=== PATIENT | female | born 1970 | race Caucasian/White ===

== ENCOUNTER → 2018-06-30 10:30 | Outpatient (CLI) | payer MEDICARE, MEDICAID, SELFPAY | PROVIDERS: PCP Nurse Practitioner Family; Visit Provider Student in an Organized Health Care Education/Training Program | DX: M75.81 Other shoulder lesions, right shoulder (principal); M75.82 Other shoulder lesions, left shoulder | CPT/HCPCS: 99213 ==

== ENCOUNTER 2018-08-03 03:51 | Outpatient (CLI) | payer SELFPAY | END 2018-08-03 04:11 | PROVIDERS: PCP Nurse Practitioner Family; Visit Provider Surgery | DX: J45.909 Unspecified asthma, uncomplicated (principal) ==

== ENCOUNTER 2018-08-10 13:20 | Outpatient (CLI) | payer MEDICARE, MEDICAID, SELFPAY ==
--- NOTE | 2018-08-10 10:00 | SATEXT_ITS ---
Assessment: Dinesh presents for nutritional counseling weight management nutrition therapy and impaired fasting glucose. Her dietary recall shows that she eats quite healthfully and does not eat processed foods. She drinks water and coffee. She does take some medications that can contribute to weight gain. She describes a history of poor sleep and high emotional stress. Her physical activities at this point are limited to her ADL's. She does go up and down many stairs per her report. During hunting season, she reports that she is physically active all day long. She is 68 and 265 lbs. Her BMI is 40.4 kg/ m2. 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 Encouraged her to be as physically active as possible. Provided her with information on the Prevent Type 2 program. Dinesh expressed interest in getting connected with the program. Also reviewed the DASH eating plan as the gold standard for healthful eating and also as a guide for the right proportions of food. Monitoring and Evaluation: 1. Dinesh will self monitor her progress and evaluate her nutrition care plan needs. 2. Dinesh will follow up with me with any questions or concerns regarding her nutrition therapy. Dinesh contact Pretty Palacio about Prevent Type 2. Thank you for the referral. Appointment start time: 1410 Appointment End time: 1430
== END 2018-08-10 13:40 ==
PROVIDERS: PCP Nurse Practitioner Family; Visit Provider Dietitian, Registered
DX: E66.8 Other obesity (principal); Z68.41 Body mass index [BMI] 40.0-44.9, adult; Z71.3 Dietary counseling and surveillance
CPT/HCPCS: 97802

== ENCOUNTER → 2018-08-11 10:24 | Outpatient (BNVA) | payer MEDICARE, MEDICAID, SELFPAY | PROVIDERS: PCP Nurse Practitioner Family; Visit Provider Student in an Organized Health Care Education/Training Program | DX: M77.12 Lateral epicondylitis, left elbow (principal); M75.102 Unspecified rotator cuff tear or rupture of left shoulder, not specified as traumatic | CPT/HCPCS: 20605; 99214; J1030 ==

== ENCOUNTER 2018-08-15 03:04 | Outpatient (CLI) | payer MEDICARE, MEDICAID, SELFPAY ==
[2018-08-15] MEDS: Inhaler, Assist Device 1 EACH MC (11:20)
[2018-08-15] MEDS: Albuterol HFA 18 GM 200 PUFF INH IH (11:20)
--- NOTE | 2018-08-18 11:25 | PFT_ITS ---
PULMONARY FUNCTION TEST REPORT DATE OF SERVICE: August 15, 2018 REQUESTING PROVIDER: Lucy Courtney APRN Spirometry shows no evidence of obstructive airways disease; no bronchodilator response. Lung volumes show no evidence of restriction. Diffusion capacity is normal. Airways resistance normal. IMPRESSION: Normal pulmonary function study. Clinical correlation recommended. MATHEUS/jacquelyn SEE SCANNED DOCUMENT IN THE EMR FOR DATA AND GRAPHS
== END 2018-08-15 03:24 ==
PROVIDERS: PCP Nurse Practitioner Family; Visit Provider Nurse Practitioner Family
DX: R06.02 Shortness of breath (principal); J45.909 Unspecified asthma, uncomplicated
CPT/HCPCS: 94060; 94150; 94726; 94729

== ENCOUNTER 2018-08-21 17:59 | Emergency (ER) | payer MEDICARE, MEDICAID, SELFPAY ==
[2018-08-21 18:25] VITALS: BP 148/80; PULSE 65; RESP 18; TEMP 36; O2SAT 97
--- NOTE | 2018-08-21 18:56 | W.ED.GENAD ---
Discharge Plan Disposition Patient Disposition: HOME Condition: Fair Discharge Details Chief Complaint: Headache Clinical Impression: Migraine Primary Care Provider: Lucy Courtney ED Provider: Breann Hudson Home Meds and New Rx's Prescriptions: Continue dihydroergotamine [Migranal] 1 ML spray,non-aerosol 1 ml NS PRN RF: 0 cyproheptadine 4 MG tablet 4 mg PO HS RF: 0 cetirizine [Zyrtec] 10 MG tablet 10 mg PO DAILY RF: 0 ondansetron HCl [Zofran] 4 MG tablet 4 mg PO PRN RF: 0 meclizine 12.5 MG tablet 12.5 mg PO PRN RF: 0 polyethylene glycol 3350(bulk) 1 GM granules 17 gm PO DAILY Qty: 527 RF: 3 omeprazole 40 MG capsule,delayed release(DR/EC) 40 mg PO BID Qty: 60 RF: 3 clonazepam 2 mg BID RF: 0 venlafaxine 75 MG tablet 225 mg PO DAILY RF: 0 topiramate 100 MG tablet 200 mg PO HS RF: 0 ipratropium bromide [Atrovent HFA] 1 PUFF HFA aerosol inhaler 1 puff Inhalation Q8H RF: 0 albuterol sulfate [Proventil HFA] 200 PUFF HFA aerosol inhaler 2 puff Inhalation PRN PRNRF: 0 fluticasone-salmeterol [Advair HFA] 60 PUFF HFA aerosol inhaler 2 puff Inhalation DAILY PRNRF: 0 naloxone [Narcan] 4 MG spray,non-aerosol 4 mg NS PRN Qty: 2 RF: 0 Discharge Instructions Instructions: Acute Headache (ED) Additional Instructions: Encourage hydration. Continue with medications as previously prescribed to help with migraine symptoms. If you develop fevers/chills, increased pain or other new/worsening symptoms please seek care urgently once again. Please follow up with neurologist regarding your breakthrough headaches. Referrals: Lucy Courtney [Primary Care Provider] - Discharge Data Discharge Date/Time-TO BE ENTERED AT DEPARTURE: 08/21/18 21:44 Medical Decision Making Patient presents with chief complaint of migraine. Neuro exam is intact. She reports this is typical for migraine. She has had migraines for several years and they are typically well controlled. Reports that her antimigraine medication typically works well for her but she did not take it last night and believes this may be the source of her migraine. No thunderclap onset. No fevers or chills. No nuchal rigidity on exam. Patient is afebrile nontoxic appearing. Blood pressure noted to be slightly elevated at 148/80, otherwise labs are within normal limits. Patient is responded quite well to Toradol historically. She will be given IV Toradol, Compazine and Benadryl. Will hydrate the patient she does appear dehydrated on exam. Discussed this plan of the patient is in agreement Patient received Toradol, IV hydration, Compezine, Benadryl. 1/2 hour after adminstration she reports no improvement. As patient has taken 3 doses of DHE today this limits our options for further treatment. Discussed with Dr. Coy, will augment with Decadron and Magnesium. After receiving the above. IV medication, patient is tolerating oral hydration. She reports that the pain has completely subsided. Is requesting discharge at this time. Advised that she discuss her TAM with her neurologist further, in particular, I advised that she discuss that her DHE for breakthrough migraines was unsuccessful. This may have been linked to the fact that she did not take her typical medications last night. We discussed new/worsening symptoms and when to seek care urgently once again. Encouraaged hydration. All of her questions and concerns were addressed, she is in agreement with this plan. HPI General Mode of arrival: ambulatory. Date/Time Provider Initiated Documentation: 08/21/18 18:46. Limitations to Documentation: no limitations. Information obtained by: patient. HPI Narrative: This is a 40-year-old female presents here with chief complaint of migraine. Patient still seen by myself historically from migraines, requesting one year since she has been seen here for intractable migraine. Reports that her migraines have been healed quite well by [facility] neurology. However, she reports she did not take her nightly antimigraine medication last night she was drinking alcohol and does not wish to mix her alcohol with her medication. Reports that she tried her on nasal dihydroergotamine which typically works quite well for her. However, this was insufficient in alleviating her discomfort. Reports that the pain is primarily on the right side. She is endorsing photophobia and phonophobia. States she has been nauseated throughout the course of the day and has had multiple episodes of emesis, most recently in the car on the way here. Patient did try Zofran ?2 today without success in alleviating her nausea. She denies any fevers or chills. Denies any neck pain. States that headache began when she awoke this morning which is typical for her migraines Related Data Home Medications Medication Instructions Recorded Confirmed venlafaxine 225 mg PO DAILY 05/16/16 08/21/18 topiramate 200 mg PO HS 06/18/16 08/21/18 dihydroergotamine [Migranal] 1 ml NS PRN script 07/07/16 08/21/18 ipratropium bromide [Atrovent HFA] 1 puff INHALATION Q8H 12/05/16 08/21/18 albuterol sulfate [Proventil HFA] 2 puff INHALATION PRN PRN 02/15/17 08/21/18 cyproheptadine 4 mg PO HS 03/30/17 08/21/18 fluticasone-salmeterol [Advair HFA] 2 puff INHALATION DAILY PRN 09/26/17 08/21/18 naloxone [Narcan] 4 mg NS PRN #2 spray 09/27/17 08/21/18 cetirizine [Zyrtec] 10 mg PO DAILY tab-cap 01/31/18 08/21/18 meclizine 12.5 mg PO PRN 01/31/18 08/21/18 ondansetron HCl [Zofran] 4 mg PO PRN 01/31/18 08/21/18 polyethylene glycol 3350(bulk) 17 gm PO DAILY #527 gm 01/31/18 08/21/18 omeprazole 40 mg PO BID #60 tab-cap 03/31/18 08/21/18 Clonazepam 2 mg BID 06/30/18 08/21/18 Previous Rx's Medication Instructions Recorded naloxone [Narcan] 4 mg NS PRN #2 spray 09/27/17 omeprazole 40 mg PO BID #60 tab-cap 03/31/18 Allergies Allergy/AdvReac Type Severity Reaction Status Date / Time codeine Allergy Intermediate Itching Unverified 08/21/18 18:29 oxycodone HCl [From Percocet] Allergy Intermediate Anaphylaxsi Unverified 08/21/18 18:29 s General Stated Complaint: Headache CRISTI: 3 Review of Systems Constitutional Reports as per HPI, Denies chills, Reports fatigue, Denies fever(s), Reports headache(s) and Denies weakness Eyes Reports as per HPI, Denies change in vision, Denies diplopia, Denies floaters, Denies loss of vision and Reports photophobia ENT Reports headache(s) Cardiovascular Denies chest pain Respiratory Denies chest congestion and Denies cough Gastrointestinal Reports as per HPI Integumentary/Breasts Denies rash Neurologic Reports as per HPI, Reports headache(s), Denies loss of vision, Denies sensory deficit, Denies paresthesias and Denies weakness Endocrine Reports fatigue PFSH Family History Father Rheumatoid arthritis Brother Rheumatoid arthritis Medical History Anxiety Asthma Black stools Chest pain Chronic pain Cigarette smoker Cough Depression Dizziness Dysphagia Family history of colon cancer GERD (gastroesophageal reflux disease) Hyperthyroidism Intertrigo Migraine Obese Obstructive sleep apnea Onychomycosis PTSD (post-traumatic stress disorder) Pedal edema Postmenopausal bleeding Right hand pain Shoulder pain, right Skin nodule Syncope Thyroid nodule Vertigo Social History Smoking/Tobacco Use Status: Current every day Surgical History Colonoscopy - MAC (02/14/18) EGD - MAC (02/14/18) Replacement of total knee joint Rotator Cuff Repair Exam Const General: cooperative, healthy appearing, comfortable, no acute distress, well developed and well groomed Nutritional Appearance: average body habitus and well nourished Orientation: alert, awake and oriented x3 HENMT Ears: hearing grossly normal bilaterally, external ears normal and TM's normal bilaterally Mouth: abnormal oral mucosae (mucosa appears dry) Eyes General: appearance normal, both eyes and all related structures Alignment and Position: alignment normal and position normal Eyelids: eyelids normal Conjunctivae: conjunctivae normal Pupils: PERRL EOM: EOM intact bilaterally and No nystagmus Neck Neck: normal visual inspection, full ROM, no lymphadenopathy and no meningeal signs Resp Effort & Inspection: normal respiratory effort, able to speak in complete sentences and no respiratory distress Auscultation: clear to auscultation bilaterally Cardio Rate: regular rate Rhythm: regular rhythm Heart Sounds: S1 normal and S2 normal Skin General skin exam: no rashes or lesions noted Trauma: no lacerations or abrasions Neuro General: alert, awake, oriented x3, gait normal, tone normal, moves all extremities and no focal motor deficits Cranial Nerves: CN's II-XI intact bilaterally, PERRL, accommodation normal, EOM intact bilaterally, no nystagmus and no nystagmus Cognition: normal cognition Gait: normal gait Motor: muscle tone normal throughout and strength 5/5 throughout Sensory Exam: no sensory deficits noted DTR's: Rt Biceps: 2+, Lt Biceps: 2+, Rt Brachioradialis: 2+, Lt Brachioradialis: 2+, Rt Patellar: 2+, Lt Patellar: 2+, Rt Ankle: 2+ and Lt Ankle: 2+ Coordination: [id number]-gd-[id number] test normal, wcfg-sh-zink test normal and rapid alternating movement UE normal Extrem General: normal to inspection, no pedal edema and no calf tenderness Psych Appearance: grossly normal and well kempt Mental Status: mental status grossly normal Speech and Movement: speech and movement normal Course Vital Signs Temperature 36 C L 08/21/18 18:25 Pulse 65 08/21/18 18:25 Respiratory Rate 18 08/21/18 18:25 Blood Pressure 148/80 H 08/21/18 18:25 Pulse Oximetry 97 08/21/18 18:25 Temperature 36 C L 08/21/18 18:25 Temperature Source Skin 08/21/18 18:25 Pulse 65 08/21/18 18:25 Respiratory Rate 18 08/21/18 18:25 Respiratory Effort Non-Labored 08/21/18 18:27 Blood Pressure 148/80 H 08/21/18 18:25 Pulse Oximetry 97 08/21/18 18:25 Pain Level 10 08/21/18 18:31
--- NOTE | 2018-08-21 19:02 | ED.GENADUL_ITS ---
Discharge Plan Disposition Patient Disposition: HOME Condition: Fair Discharge Details Chief Complaint: Headache Clinical Impression: Migraine Primary Care Provider: Lucy Courtney ED Provider: Breann Hudson Home Meds and New Rx's Prescriptions: Continue dihydroergotamine [Migranal] 1 ML spray,non-aerosol 1 ml NS PRN RF: 0 cyproheptadine 4 MG tablet 4 mg PO HS RF: 0 cetirizine [Zyrtec] 10 MG tablet 10 mg PO DAILY RF: 0 ondansetron HCl [Zofran] 4 MG tablet 4 mg PO PRN RF: 0 meclizine 12.5 MG tablet 12.5 mg PO PRN RF: 0 polyethylene glycol 3350(bulk) 1 GM granules 17 gm PO DAILY Qty: 527 RF: 3 omeprazole 40 MG capsule,delayed release(DR/EC) 40 mg PO BID Qty: 60 RF: 3 clonazepam 2 mg BID RF: 0 venlafaxine 75 MG tablet 225 mg PO DAILY RF: 0 topiramate 100 MG tablet 200 mg PO HS RF: 0 ipratropium bromide [Atrovent HFA] 1 PUFF HFA aerosol inhaler 1 puff Inhalation Q8H RF: 0 albuterol sulfate [Proventil HFA] 200 PUFF HFA aerosol inhaler 2 puff Inhalation PRN PRNRF: 0 fluticasone-salmeterol [Advair HFA] 60 PUFF HFA aerosol inhaler 2 puff Inhalation DAILY PRNRF: 0 naloxone [Narcan] 4 MG spray,non-aerosol 4 mg NS PRN Qty: 2 RF: 0 Discharge Instructions Instructions: Acute Headache (ED) Additional Instructions: Encourage hydration. Continue with medications as previously prescribed to help with migraine symptoms. If you develop fevers/chills, increased pain or other new/worsening symptoms please seek care urgently once again. Please follow up with neurologist regarding your breakthrough headaches. Referrals: Lucy Courtney [Primary Care Provider] - Discharge Data Discharge Date/Time-TO BE ENTERED AT DEPARTURE: 08/21/18 21:44 Medical Decision Making Patient presents with chief complaint of migraine. Neuro exam is intact. She reports this is typical for migraine. She has had migraines for several years and they are typically well controlled. Reports that her antimigraine medication typically works well for her but she did not take it last night and believes this may be the source of her migraine. No thunderclap onset. No fevers or chills. No nuchal rigidity on exam. Patient is afebrile nontoxic appearing. Blood pressure noted to be slightly elevated at 148/80, otherwise labs are within normal limits. Patient is responded quite well to Toradol historically. She will be given IV Toradol, Compazine and Benadryl. Will hydrate the patient she does appear dehydrated on exam. Discussed this plan of the patient is in agreement Patient received Toradol, IV hydration, Compezine, Benadryl. 1/2 hour after adminstration she reports no improvement. As patient has taken 3 doses of DHE today this limits our options for further treatment. Discussed with Dr. Coy, will augment with Decadron and Magnesium. After receiving the above. IV medication, patient is tolerating oral hydration. She reports that the pain has completely subsided. Is requesting discharge at this time. Advised that she discuss her TAM with her neurologist further, in particular, I advised that she discuss that her DHE for breakthrough migraines was unsuccessful. This may have been linked to the fact that she did not take her typical medications last night. We discussed new/worsening symptoms and when to seek care urgently once again. Encouraaged hydration. All of her questions and concerns were addressed, she is in agreement with this plan. HPI General Mode of arrival: ambulatory . Date/Time Provider Initiated Documentation: 08/21/18 18:46 . Limitations to Documentation: no limitations . Information obtained by: patient . HPI Narrative: This is a 40-year-old female presents here with chief complaint of migraine. Patient still seen by myself historically from migraines, requesting one year since she has been seen here for intractable migraine. Reports that her migraines have been healed quite well by [facility] neurology. However, she reports she did not take her nightly antimigraine medication last night she was drinking alcohol and does not wish to mix her alcohol with her medication. Reports that she tried her on nasal dihydroergotamine which typically works quite well for her. However, this was insufficient in alleviating her discomfort. Reports that the pain is primarily on the right side. She is endorsing photophobia and phonophobia. States she has been nauseated throughout the course of the day and has had multiple episodes of emesis, most recently in the car on the way here. Patient did try Zofran ?2 today without success in alleviating her nausea. She denies any fevers or chills. Denies any neck pain. States that headache began when she awoke this morning which is typical for her migraines Related Data Home Medications Medication Instructions Recorded Confirmed venlafaxine 225 mg PO DAILY 05/16/16 08/21/18 topiramate 200 mg PO HS 06/18/16 08/21/18 dihydroergotamine [Migranal] 1 ml NS PRN script 07/07/16 08/21/18 ipratropium bromide [Atrovent HFA] 1 puff INHALATION Q8H 12/05/16 08/21/18 albuterol sulfate [Proventil HFA] 2 puff INHALATION PRN PRN 02/15/17 08/21/18 cyproheptadine 4 mg PO HS 03/30/17 08/21/18 fluticasone-salmeterol [Advair HFA] 2 puff INHALATION DAILY PRN 09/26/17 naloxone [Narcan] 4 mg NS PRN #2 spray 09/27/17 08/21/18 cetirizine [Zyrtec] 10 mg PO DAILY tab-cap 01/31/18 08/21/18 meclizine 12.5 mg PO PRN 01/31/18 08/21/18 ondansetron HCl [Zofran] 4 mg PO PRN 01/31/18 08/21/18 polyethylene glycol 3350(bulk) 17 gm PO DAILY #527 gm 01/31/18 08/21/18 omeprazole 40 mg PO BID #60 tab-cap 03/31/18 08/21/18 Clonazepam 2 mg BID 06/30/18 08/21/18 Previous Rx's Medication Instructions Recorded naloxone [Narcan] 4 mg NS PRN #2 spray 09/27/17 omeprazole 40 mg PO BID #60 tab-cap 03/31/18 Allergies Allergy/AdvReac Type Severity Reaction Status Date / Time codeine Allergy Intermediate Itching Unverified 08/21/18 18:29 oxycodone HCl [From Percocet] Allergy Intermediate Anaphylaxsi Unverified 18:29 s General Stated Complaint: Headache CRISTI: 3 Review of Systems Constitutional Reports as per HPI, Denies chills, Reports fatigue, Denies fever(s), Reports headache(s) and Denies weakness Eyes Reports as per HPI, Denies change in vision, Denies diplopia, Denies floaters, Denies loss of vision and Reports photophobia ENT Reports headache(s) Cardiovascular Denies chest pain Respiratory Denies chest congestion and Denies cough Gastrointestinal Reports as per HPI Integumentary/Breasts Denies rash Neurologic Reports as per HPI, Reports headache(s), Denies loss of vision, Denies sensory deficit, Denies paresthesias and Denies weakness Endocrine Reports fatigue PFSH Family History Father Rheumatoid arthritis Brother Rheumatoid arthritis Medical History Anxiety Asthma Black stools Chest pain Chronic pain Cigarette smoker Cough Depression Dizziness Dysphagia Family history of colon cancer GERD (gastroesophageal reflux disease) Hyperthyroidism Intertrigo Migraine Obese Obstructive sleep apnea Onychomycosis PTSD (post-traumatic stress disorder) Pedal edema Postmenopausal bleeding Right hand pain Shoulder pain, right Skin nodule Syncope Thyroid nodule Vertigo Social History Smoking/Tobacco Use Status: Current every day Surgical History Colonoscopy - MAC (02/14/18) EGD - MAC (02/14/18) Replacement of total knee joint Rotator Cuff Repair Exam Const General: cooperative, healthy appearing, comfortable, no acute distress, well developed and well groomed Nutritional Appearance: average body habitus and well nourished Orientation: alert, awake and oriented x3 HENMT Ears: hearing grossly normal bilaterally, external ears normal and TM's normal bilaterally Mouth: abnormal oral mucosae (mucosa appears dry) Eyes General: appearance normal, both eyes and all related structures Alignment and Position: alignment normal and position normal Eyelids: eyelids normal Conjunctivae: conjunctivae normal Pupils: PERRL EOM: EOM intact bilaterally and No nystagmus Neck Neck: normal visual inspection, full ROM, no lymphadenopathy and no meningeal signs Resp Effort & Inspection: normal respiratory effort, able to speak in complete sentences and no respiratory distress Auscultation: clear to auscultation bilaterally Cardio Rate: regular rate Rhythm: regular rhythm Heart Sounds: S1 normal and S2 normal Skin General skin exam: no rashes or lesions noted Trauma: no lacerations or abrasions Neuro General: alert, awake, oriented x3, gait normal, tone normal, moves all extremities and no focal motor deficits Cranial Nerves: CN's II-XI intact bilaterally, PERRL, accommodation normal, EOM intact bilaterally, no nystagmus and no nystagmus Cognition: normal cognition Gait: normal gait Motor: muscle tone normal throughout and strength 5/5 throughout Sensory Exam: no sensory deficits noted DTR's: Rt Biceps: 2+, Lt Biceps: 2+, Rt Brachioradialis: 2+, Lt Brachioradialis : 2+, Rt Patellar: 2+, Lt Patellar: 2+, Rt Ankle: 2+ and Lt Ankle: 2+ Coordination: ulrdfd-os-kasi test normal, asvy-ad-zuaw test normal and rapid alternating movement UE normal Extrem General: normal to inspection, no pedal edema and no calf tenderness Psych Appearance: grossly normal and well kempt Mental Status: mental status grossly normal Speech and Movement: speech and movement normal Course Vital Signs Temperature 36 C L 08/21/18 18:25 Pulse 65 08/21/18 18:25 Respiratory Rate 18 08/21/18 18:25 Blood Pressure 148/80 H 08/21/18 18:25 Pulse Oximetry 97 08/21/18 18:25 Temperature 36 C L 08/21/18 18:25 Temperature Source Skin 08/21/18 18:25 Pulse 65 08/21/18 18:25 Respiratory Rate 18 08/21/18 18:25 Respiratory Effort Non-Labored 08/21/18 18:27 Blood Pressure 148/80 H 08/21/18 18:25 Pulse Oximetry 97 08/21/18 18:25 Pain Level 10 08/21/18 18:31
[2018-08-21] MEDS: diphenhydrAMINE 50 MG/ML VIAL 25 MG IVP (19:16)
[2018-08-21] MEDS: Ketorolac 30 MG/ML VIAL IVP (19:18)
[2018-08-21] MEDS: Normal Saline 1,000 ML 1000 ML IV (19:19)
[2018-08-21] MEDS: Prochlorperazine 10 MG/2 ML VIAL IVP (19:19)
[2018-08-21 21:42] VITALS: BP 138/80; PULSE 86; RESP 18; TEMP 36.9; O2SAT 98
== END 2018-08-21 21:44 | disposition home or self-care (01) ==
PROVIDERS: Emergency Provider Physician Assistant; PCP Nurse Practitioner Family
DX: G43.909 Migraine, unspecified, not intractable, without status migrainosus (principal)
CPT/HCPCS: 96374; 96375; 99284; 99283; J0780; J1200; J1885

== ENCOUNTER 2018-08-25 00:22 | Outpatient (CLI) | payer MEDICARE, MEDICAID, SELFPAY ==
--- NOTE | 2018-08-25 10:40 | DI.MRI_ITS ---
SYMPTOM/DIAGNOSIS: PAIN, ? LT RTC TEAR M75.102 MRI LEFT SHOULDER: Routine noncontrast. No priors for comparison. There is T2 hyperintense signal in the supraspinatus tendon consistent with intersubstance tear. There is thickening and intermediate signal of the tendon consistent with tendinosis. The infraspinatus, teres minor and subscapularis tendons are intact. The muscles show normal signal and size. No significant muscular fatty atrophy is present. The biceps tendon has a normal appearance and location. The glenoid labrum is grossly unremarkable on this noncontrast examination. The glenohumeral articular cartilage is well maintained. Marrow signal is within normal limits. No evidence of an occult fracture or avascular necrosis seen. There are post surgical changes of resection of the distal clavicle. No focal fluid collection or soft tissue masses appreciated. There is artifact seen in the soft tissues from prior surgery. IMPRESSION: Intersubstance partial tear of the supraspinatus tendon. No significant muscular fatty atrophy is appreciated.
== END 2018-08-25 00:42 ==
PROVIDERS: PCP Nurse Practitioner Family; Visit Provider Student in an Organized Health Care Education/Training Program
DX: M75.102 Unspecified rotator cuff tear or rupture of left shoulder, not specified as traumatic (principal); M25.512 Pain in left shoulder; M75.82 Other shoulder lesions, left shoulder
CPT/HCPCS: 73221

== ENCOUNTER → 2018-09-25 10:26 | Outpatient (BNVA) | payer MEDICARE, MEDICAID, SELFPAY | PROVIDERS: PCP Nurse Practitioner Family; Referring Provider Nurse Practitioner Family; Visit Provider Student in an Organized Health Care Education/Training Program | DX: M75.102 Unspecified rotator cuff tear or rupture of left shoulder, not specified as traumatic (principal); M77.12 Lateral epicondylitis, left elbow | CPT/HCPCS: 99213 ==

== ENCOUNTER 2018-10-04 12:56 | Outpatient (REF) | payer MEDICARE, MEDICAID, SELFPAY ==
[2018-10-04 21:28] LABS: Abs Immature Grans 0.02 k/cumm (0.0-0.09); Absolute Lymphocyte Count 3.15 k/cumm (1.2-3.4); Absolute Monocyte Count 0.68 k/cumm (0.11-0.7); Absolute Neutrophil Count 4.21 k/cumm (1.2-6.7); HCT 43.3 % (36.0-46.0); Immature Grans % 0.2; Lymphocytes % 39.1; Mean Corp. HGB Concentration 32.3 g/dL (32.0-36.0); Mean Corpuscular Hemoglobin 29.1 pg (27.0-33.0); Mean Platelet Volume 10.4 fL (8.0-11.0); Monocytes % 8.4; Neutrophils % 52.3; Platelet Count 301 x1000/uL (130-400); RBC 4.81 m/cumm (4.00-5.20); RBC Distribution Width 15.2 % (11.7-14.6); White Blood Cell Count 8.06 k/cumm (4.4-10.8)
[2018-10-04 21:35] LABS: ALT 36 U/L (12-78); AST 24 U/L (15-37); Albumin 3.6 g/dL (3.4-5.0); Alkaline Phosphatase 81 U/L (46-116); Anion Gap 9.6 mmol/L (3-11); BUN 13 mg/dL (7-18); Bilirubin, Total 0.5 mg/dL (0.2-1.0); CO2 25.4 mmol/L (21.0-32.0); CREATININE 0.92 mg/dL (0.55-1.02); Calcium 9.2 mg/dL (8.5-10.1); Chloride 104 mmol/L (98-107); Glucose 95 mg/dL (70-100); Potassium 3.9 mmol/L (3.5-5.1); Sodium 139 mmol/L (136-145); Total Protein 7.1 g/dL (6.4-8.2)
[2018-10-04 22:39] LABS: ESR 22 MM/HR (0-20)
[2018-10-07 00:02] LABS: Anaplasma phagocytophilum Negative (Negative); B. miyamotoi PCR Negative (Negative); Babesia divergens/MO-1 Negative (Negative); Babesia duncani Negative (Negative); Babesia microti Negative (Negative); Ehrlichia chaffeensis Negative (Negative); Ehrlichia ewingii/canis Negative (Negative); Ehrlichia muris eauclairensis Negative (Negative)
== END 2018-10-04 13:16 ==
LOC: NCHCN 12:56
PROVIDERS: PCP Nurse Practitioner Family; Visit Provider Family Medicine
DX: M25.50 Pain in unspecified joint (principal); R53.83 Other fatigue
CPT/HCPCS: 80053; 85652; 85025; 87798

== ENCOUNTER 2018-11-29 12:55 | Outpatient (CLI) | payer MEDICARE, MEDICAID, SELFPAY | END 2018-11-29 13:15 | PROVIDERS: PCP Nurse Practitioner Family; Visit Provider Student in an Organized Health Care Education/Training Program | DX: M25.512 Pain in left shoulder (principal); M75.102 Unspecified rotator cuff tear or rupture of left shoulder, not specified as traumatic; M77.12 Lateral epicondylitis, left elbow ==

== ENCOUNTER 2018-11-30 09:41 | Day surgery (SDC) | payer MEDICARE, MEDICAID, SELFPAY ==
[2018-11-30] VITALS (9 sets, daily range): BP systolic 88–111; BP diastolic 48–75; PULSE 72–84; RESP 12–19; TEMP 36.5–36.7; O2SAT 93–96
[2018-11-30] MEDS: Lactated Ringers 1,000 ML 80 ML IV ×2 (10:35→14:40)
--- NOTE | 2018-11-30 12:15 | PDOC.DSDIS_ITS ---
Discharge Plan Disposition Patient Disposition: HOME Condition: Stable Discharge Details Reason For Visit: (L) RTC TEAR,(L) LATERAL EPICONDYLITIS Attending Provider: Junior Brunson Primary Care Provider: Lucy Courtney Home Meds and New Rx's Prescriptions: New ibuprofen 600 mg tablet 600 mg PO TID PRNQty: 90 RF: 3 acetaminophen 500 mg capsule 1,000 mg PO Q8H PRN (Reason: pain) Qty: 90 RF: 0 hydromorphone 2 mg tablet 2 mg PO Q4H PRN (Reason: pain) Qty: 20 RF: 0 Continued dihydroergotamine [Migranal] 1 ML spray,non-aerosol 1 ml NS PRN RF: 0 cyproheptadine 4 MG tablet 4 mg PO HS RF: 0 cetirizine [Zyrtec] 10 MG tablet 10 mg PO DAILY RF: 0 ondansetron HCl [Zofran] 4 MG tablet 4 mg PO PRN RF: 0 meclizine 12.5 MG tablet 12.5 mg PO BID RF: 0 polyethylene glycol 3350(bulk) 1 GM granules 17 gm PO DAILY PRNQty: 527 RF: 3 omeprazole 40 MG capsule,delayed release(DR/EC) 40 mg PO BID Qty: 60 RF: 3 venlafaxine 75 MG tablet 225 mg PO DAILY RF: 0 topiramate 100 MG tablet 100 mg PO BID RF: 0 Atrovent HFA 1 PUFF HFA aerosol inhaler 1 puff Inhalation Q8H PRNRF: 0 Proventil HFA 200 PUFF HFA aerosol inhaler 2 puff Inhalation PRN PRNRF: 0 Advair HFA 60 PUFF HFA aerosol inhaler 2 puff Inhalation DAILY PRNRF: 0 Narcan 4 MG spray,non-aerosol 4 mg NS PRN Qty: 2 RF: 0 nicotine 14 mg/24 hr Patch 24 Hour 1 patch TRANSDERMAL DAILY RF: 0 clonazepam 1 mg Tablet 1 mg PO TID PRNRF: 0 nicotine 21 mg/24 hr Patch 24 Hour 1 patch TRANSDERMAL DAILY RF: 0 nicotine 7 mg/24 hr Patch 24 Hour 1 patch TRANSDERMAL Q24H RF: 0 gabapentin 100 mg Capsule 100 mg PO DAILY RF: 0 Discharge Instructions Stand Alone Forms: Nannette Forte w/RCR Referrals: Junior Brunson MD [ [facility] STAFF PHYSICIAN] - Equipment/Supplies: Sling Activity:: In Sling Remove Dressings/Wound Care:: 72 hours Shower/Bathe:: 72 hours Diet:: As Tolerated Discharge Orders Discharge Orders: Discharge Order (Routine); Ordered 11/30/18 Ordered By: Junior Brunson DS: Diagnosis Discharge Diagnosis (1) Left rotator cuff tear: Status: Acute (2) Left lateral epicondylitis: Status: Acute
[2018-11-30] MEDS: Albuterol/Ipratropium 3 ML UPD VIAL (15:05)
[2018-11-30] MEDS: HYDROmorphone 2 MG/ML VIAL IVP ×3 (15:25→15:45)
[2018-11-30] MEDS: Normal Saline Flush 10 ML SYR IV (15:27)
[2018-11-30] MEDS: Ketorolac 15 MG/ML VIAL (17:25)
--- NOTE | 2018-12-01 10:36 | ROE_ITS ---
DATE OF SURGERY: November 30, 2018 PREOPERATIVE DIAGNOSIS: Left rotator cuff tear, left lateral epicondylitis. POSTOPERATIVE DIAGNOSIS: Left biceps tear, left subscapularis and supraspinatus tear, left elbow lat eral epicondylitis. SURGERY: Left arthroscopic rotator cuff repair, left lateral elbow debridement. SURGEON: Junior Brunson M.D. CONFERENCE INTERPRETER: Ronny Silverman PA-C FINDINGS: There was a 50% torn biceps tendon with a loose fragment in the joint. A tenotomy was per formed. There was also an upper subscapularis tear in addition to an anterior supraspinatus tear. T hese were both repaired with single anchors. ANESTHESIA: General with an interscalene nerve block. ESTIMATED BLOOD LOSS: 20 cc's COMPLICATIONS: None. DISPOSITION: The patient was awakened from anesthesia and taken to the PACU in a stable condition. INDICATION FOR PROCEDURE: Dinesh is a 48-year-old who I have known previously for right shoulder issu es. She's had persistent left shoulder issues as well as left elbow issues. She was diagnosed with a left rotator cuff tear, as well as persistent left lateral epicondylitis of the elbow. She has dedra led conservative treatment options and desired to have surgical intervention. I reviewed the risks o f the procedure to include bleeding, infection, pain, stiffness, re-tear, need for repeat procedures, weakness, damage to nerves and vessels, damage to muscles and tendons, persistent pain. Despite the se risks, she elected to proceed. PROCEDURE DESCRIPTION: Dinesh was greeted in the preoperative holding area. Her identity was confirm ed and the correct side was identified and marked. The consent was reviewed with the patient and sig wendy. The history and physical was updated. She was taken back to the PACU where an interscalene ner ve block was administered. After successful administration of regional anesthesia she was taken back to the Operating Room. In the supine position a general anesthetic was given. She was then positio wendy in the beach chair position. All bony prominences were well-padded. The head was held in a neut ral position with a foam college or [employer] department head. The left arm was then prepped with ChloraPrep and draped in a standard fashion. Prophylactic antibiotics in the form of Cefazolin were given. A time-out was perf ormed for safe surgery. Starting with the left shoulder, standard arthroscopy portals were marked over the skin. The shoulde r joint was insufflated with normal saline with good flow back. A standard posterior arthroscopy por bryan was made and the shoulder was entered atraumatically and bluntly. Once inside the shoulder I was able to perform a diagnostic arthroscopy. There was notable tearing of the biceps tendon with a loo se flap. The rotator interval was identified and using a spinal needle, a 6.5 mm cannula was placed into the anterior aspect of the shoulder through the rotator interval. A complete diagnostic arthros copy was performed with a probe. This showed tearing of the upper portion of the subscapularis tendo n. Tearing of the biceps tendon. An intact labrum. No significant arthritic changes except for aurea e very focal grade 1 changes over the glenoid. There was some fraying and tearing of the very anteri or-most aspect of the supraspinatus tendon. The posterior labrum was intact. No loose bodies in the pouch. A tenotomy was then performed with a VAPR electrocautery device. Debridement was performed with a sh aver, especially of the rotator interval, to identify the upper border of the subscapularis tendon. Further identification showed that there was a pulled off section of the upper portion of the subscap ularis tendon. The inferior portions were intact. There was some exposed footprint. Using a shaver I then debrided down this exposed footprint of the upper portion of the lesser tuberosity. Once thi s was debrided down fully I place a single Mitek HEALIX anchor. A single horizontal mattress suture was then placed through the upper portion of the subscapularis tendon, which nicely reapproximated th e torn tendon edge to the lesser tuberosity. This was tied using standard knot tying techniques. Th e second suture was pulled out as it was not necessary with the limited real estate. The arm was inv estigated to about 45 degrees of external rotation and it did not have any pull off. Internal rotati on also showed no gapping of the upper portion of the subscapularis tendon. Debridement was then per formed of the stump of the biceps tendon. The torn aspects of the supraspinatus tendon were debrided down as well. This was marked with a PDS suture and did not seem to be complete. It was the anteri or-most margins right up to the coracohumeral ligament. The scope was then removed from the shoulder . The camera was then inserted into the subacromial space and an anterior cannula was placed lateral to the CA ligament. She did have a previous shoulder procedure performed with acromial resection. Tari ridement was performed underneath the acromion and into the bursa of the subacromial space. The rota tor cuff was identified. Two lateral portals were positioned, one anteriorly and one posteriorly in the lateral subacromial space. A 7.5 mm cannula was placed in the anterior portion to be the working portal. This had excellent visualization. The scope was moved to the lateral position. Debridemen t was performed to expose the lateral aspect of the rotator cuff insertion. The PDS suture was seen . This corresponded to a bursal tearing as well. The tear was completed from the bursal side to the articular side showing a very small tear measuring approximately 5 to 6 mm in width. The tissue elizabeth lity on either side appeared to be quite healthy. I debrided the tendon edges, which again appeared to be healthy. It was primarily a crescent-type tear that was created and just needed to be pushed b ack down to bone without any anterior or posterior convergence. A single Mitek HEALIX anchor was the n placed into the space along the articular margin. This was inserted without difficulty. Two horiz ontal mattress sutures were then placed into the tendon. This helped reapproximate the tendon down t o bone. There was no longer visualization into the joint. The tendon was resting on the bone itself . The bone was bleeding. I did not find any need for a lateral row given the purchase of the tendon and the approximation of the tendon. Therefore no lateral row was performed. The sutures were cut. The scope was removed from the shoulder and the portal sites were closed with a #3-0 Monocryl follo wed by Steri-Strips, 4x4's, ABD and Medipore tape. We then turned out attention to the lateral elbow. In the beach chair position I was able to prop th e elbow up in a flexed position. The lateral epicondyle was identified and a 4 cm incision was made starting from the lateral epicondyle and moving distally. The interval between the ECRL and the EDC was identified. This was incised and the muscle fibers of the ECRL were retracted anteriorly. This exposed the tendinous substance of the ECRB deep to the ECRL. This tendon was inspected and it showe d some minor degradation seen at the level just distal to the lateral epicondyle. This was debrided sharply with a knife and also with a rongeur. Care was taken not to dive deeply to penetrate into th e joint or to violate the lateral ulnar collateral ligament. After this was completed, the muscle fa scia of the ECRL was reapproximated back to the EDC with a #2-0 Vicryl. The wound was irrigated. Th e skin was closed with a #2-0 Vicryl followed by a #3-0 Monocryl. The patient was placed into a slin g. She was transitioned back to the supine position in a hospital bed without difficulty. At the en d of the case all counts were correct.
== END 2018-11-30 18:18 | disposition home or self-care (01) ==
PROVIDERS: PCP Nurse Practitioner Family; Visit Provider Student in an Organized Health Care Education/Training Program
PROC: (CPT 29827; principal; 2018-11-30 10:30)
PROC: (CPT 29827; 2018-11-30 10:30)
DX: M75.122 Complete rotator cuff tear or rupture of left shoulder, not specified as traumatic (principal); M77.12 Lateral epicondylitis, left elbow; S46.212A Strain of muscle, fascia and tendon of other parts of biceps, left arm, initial encounter; X58.XXXA Exposure to other specified factors, initial encounter
CPT/HCPCS: 29827; 29823; 64415; 76942; 81025; J0690; J1885; J7620; L3670

== ENCOUNTER → 2018-12-13 09:25 | Outpatient (BNVA) | payer MEDICARE, MEDICAID, SELFPAY | PROVIDERS: PCP Nurse Practitioner Family; Referring Provider Nurse Practitioner Family; Visit Provider Student in an Organized Health Care Education/Training Program | DX: M75.102 Unspecified rotator cuff tear or rupture of left shoulder, not specified as traumatic (principal); M77.12 Lateral epicondylitis, left elbow; Z47.89 Encounter for other orthopedic aftercare ==

== ENCOUNTER → 2019-01-17 09:30 | Outpatient (BNVA) | payer MEDICARE, MEDICAID, SELFPAY | PROVIDERS: PCP Nurse Practitioner Family; Referring Provider Nurse Practitioner Family; Visit Provider Student in an Organized Health Care Education/Training Program | DX: Z47.89 Encounter for other orthopedic aftercare (principal); M75.102 Unspecified rotator cuff tear or rupture of left shoulder, not specified as traumatic; M77.12 Lateral epicondylitis, left elbow ==

== ENCOUNTER 2019-01-31 10:31 | Outpatient (CLI) | payer MEDICARE, MEDICAID, SELFPAY ==
--- NOTE | 2019-01-31 13:05 | DI.US_ITS ---
SYMPTOMS/DIAGNOSIS: LT LEG SWELLING, M79.89 LEFT LOWER EXTREMITY ULTRASOUND: The deep veins of the left lower extremity show normal compression, augmentation and color flow. No evidence of a deep venous thrombus is identified. The saphenofemoral junction appears unremarkable. IMPRESSION: No evidence of a left lower extremity deep venous thrombus.
== END 2019-01-31 10:51 ==
PROVIDERS: PCP Nurse Practitioner Family; Visit Provider Nurse Practitioner Family
DX: R22.42 Localized swelling, mass and lump, left lower limb (principal); M79.89 Other specified soft tissue disorders
CPT/HCPCS: 93971

== ENCOUNTER 2019-02-05 15:24 | Outpatient (CLI) | payer MEDICARE, MEDICAID, SELFPAY ==
--- NOTE | 2019-02-05 15:21 | DI.RAD_ITS ---
SYMPTOM/DIAGNOSIS: LT KNEE PAIN, SWELLING LEFT KNEE: Three views. Comparison is made with 07/28/13. There is mild narrowing and periarticular spurring in the medial femoral tibial joint space. Small spurs are seen at the posterior patella. There is a small suprapatellar joint effusion. No acute fracture or dislocation is identified. There is a well corticated osseous density seen anterior to the patella which appears chronic. IMPRESSION: Mild osteoarthritis of the left knee.
== END 2019-02-05 15:44 ==
PROVIDERS: PCP Nurse Practitioner Family; Referring Provider Nurse Practitioner Family; Visit Provider Student in an Organized Health Care Education/Training Program
DX: M25.562 Pain in left knee (principal); M76.892 Other specified enthesopathies of left lower limb, excluding foot; M17.12 Unilateral primary osteoarthritis, left knee; M25.461 Effusion, right knee
CPT/HCPCS: 20610; 73562; 99212; 99213; J1040

== ENCOUNTER 2019-02-05 16:04 | Outpatient (REF) | payer MEDICARE, MEDICAID, SELFPAY ==
[2019-02-05 17:05] LABS: Clarity CLEAR; Nucleated Cells 524 /MM3 (0-0); Source L KNEE
[2019-02-05 17:06] LABS: Mononuclear Cells 95 % (0-0); Polynuclear Cells 5 % (0-0)
== END 2019-02-05 16:24 ==
LOC: LBN 16:04
PROVIDERS: PCP Nurse Practitioner Family; Visit Provider Student in an Organized Health Care Education/Training Program
DX: M25.462 Effusion, left knee (principal)
CPT/HCPCS: 89051; 89060

== ENCOUNTER → 2019-02-21 08:24 | Outpatient (BNVA) | payer MEDICARE, MEDICAID, SELFPAY | PROVIDERS: PCP Nurse Practitioner Family; Referring Provider Nurse Practitioner Family; Visit Provider Student in an Organized Health Care Education/Training Program | DX: M25.512 Pain in left shoulder (principal); Z47.89 Encounter for other orthopedic aftercare; M75.102 Unspecified rotator cuff tear or rupture of left shoulder, not specified as traumatic | CPT/HCPCS: 20610; J1040 ==

== ENCOUNTER → 2019-03-21 08:54 | Outpatient (BNVA) | payer MEDICARE, MEDICAID, SELFPAY | PROVIDERS: PCP Nurse Practitioner Family; Referring Provider Nurse Practitioner Family; Visit Provider Student in an Organized Health Care Education/Training Program | DX: M25.562 Pain in left knee (principal); M25.512 Pain in left shoulder; Z47.89 Encounter for other orthopedic aftercare; M77.12 Lateral epicondylitis, left elbow | CPT/HCPCS: 99213 ==

== ENCOUNTER → 2019-04-04 13:41 | Outpatient (BNVA) | payer MEDICARE, MEDICAID, SELFPAY | PROVIDERS: PCP Nurse Practitioner Family; Referring Provider Nurse Practitioner Family; Visit Provider Student in an Organized Health Care Education/Training Program | DX: M25.462 Effusion, left knee (principal); M25.562 Pain in left knee | CPT/HCPCS: 29515; 99212; L1812 ==

== ENCOUNTER 2019-04-05 11:55 | Outpatient (REF) | payer MEDICARE, MEDICAID, SELFPAY ==
[2019-04-05 22:57] LABS: Magnesium 1.9 mg/dL (1.8-2.4); TSH (W/Ref FT4) 0.81 uIU/mL (0.358-3.74); Vitamin B12 712 pg/mL (193-986)
== END 2019-04-05 12:15 ==
LOC: NCHCN 11:55
PROVIDERS: PCP Nurse Practitioner Family; Visit Provider Nurse Practitioner Family
DX: R53.83 Other fatigue (principal); R73.01 Impaired fasting glucose; M25.50 Pain in unspecified joint; R42 Dizziness and giddiness; G47.33 Obstructive sleep apnea (adult) (pediatric); J45.40 Moderate persistent asthma, uncomplicated; K30 Functional dyspepsia; E04.1 Nontoxic single thyroid nodule
CPT/HCPCS: 82607; 83735; 84443

== ENCOUNTER 2019-04-09 00:19 | Outpatient (CLI) | payer MEDICARE, MEDICAID, SELFPAY ==
--- NOTE | 2019-04-09 15:00 | DI.US_ITS ---
SYMPTOM/DIAGNOSIS: HYPERTHYROIDISM, THYROID NODULE, E05.90,E04.1 THYROID ULTRASOUND: The right lobe measures 4.7 by 1.3 by 1.7 cm. The left lobe measures 5 by 1.4 by 1.7 cm. The right lobe shows a few tiny cystic areas. The left lobe shows a circumscribed, nearly isoechoic nodule with areas of heterogeneity measuring 2.4 by 1.8 by 2 cm. An additional 1.1 by 1.1 by 1.0 cm. nodule is noted. IMPRESSION: 2.4 cm. nodule at the lower pole of the left lobe of the thyroid without suspicious features. A follow up exam could be considered.
== END 2019-04-09 00:39 ==
PROVIDERS: PCP Nurse Practitioner Family; Visit Provider Nurse Practitioner Family
DX: E05.90 Thyrotoxicosis, unspecified without thyrotoxic crisis or storm (principal); E04.1 Nontoxic single thyroid nodule; M25.462 Effusion, left knee; W57.XXXA Bitten or stung by nonvenomous insect and other nonvenomous arthropods, initial encounter; M25.562 Pain in left knee
CPT/HCPCS: 20610; 99212; 99213; 76536; J1040

== ENCOUNTER 2019-04-12 00:55 | Outpatient (CLI) | payer MEDICARE, MEDICAID, SELFPAY ==
--- NOTE | 2019-04-12 15:42 | DI.MRI_ITS ---
SYMPTOMS/DIAGNOSIS: RECURRENT LEFT KNEE EFFUSION AND PAIN, MEDIAL AND LATERAL, S/P DRAINAGE 3 DAYS AGO LEFT KNEE MRI: MRI examination of the knee was performed according to the usual protocol. There is a moderate-sized knee joint effusion. Extensor mechanism appears intact except for mild thinning of articular cartilage. Mild articular cartilage thinning also seen involving medial tibiofemoral joint. Cruciate ligaments appear intact. Lateral meniscus appears intact. There is a nondisplaced posterior horn oblique tear of the medial meniscus. No significant collateral ligament injury seen. No significant bony signal abnormality seen. CONCLUSION: Nondisplaced posterior horn medial meniscus oblique tear. Mild degenerative changes of medial tibiofemoral joint and patellofemoral joint.
== END 2019-04-12 01:15 ==
PROVIDERS: PCP Nurse Practitioner Family; Visit Provider Physician Assistant
DX: M25.562 Pain in left knee (principal); M25.462 Effusion, left knee; M17.12 Unilateral primary osteoarthritis, left knee; S83.242A Other tear of medial meniscus, current injury, left knee, initial encounter
CPT/HCPCS: 73721

== ENCOUNTER 2019-04-12 15:49 | Outpatient (CLI) | payer MEDICARE, MEDICAID, SELFPAY ==
[2019-04-14 22:22] LABS: Anaplasma phagocytophilum Negative (Negative); B. miyamotoi PCR Negative (Negative); Babesia divergens/MO-1 Negative (Negative); Babesia duncani Negative (Negative); Babesia microti Negative (Negative); Ehrlichia chaffeensis Negative (Negative); Ehrlichia ewingii/canis Negative (Negative); Ehrlichia muris eauclairensis Negative (Negative)
[2019-04-16 12:08] LABS: Lyme Ab w Rflx to Lyme Confirm Negative
== END 2019-04-12 16:09 ==
PROVIDERS: Physician Assistant; PCP Nurse Practitioner Family; Visit Provider Student in an Organized Health Care Education/Training Program
DX: M25.562 Pain in left knee (principal)
CPT/HCPCS: 36415; 73721; 86618; 87798

== ENCOUNTER → 2019-04-20 10:06 | Outpatient (BNVA) | payer MEDICARE, MEDICAID, SELFPAY | PROVIDERS: PCP Nurse Practitioner Family; Referring Provider Nurse Practitioner Family; Visit Provider Student in an Organized Health Care Education/Training Program | DX: S83.231D Complex tear of medial meniscus, current injury, right knee, subsequent encounter (principal); M25.562 Pain in left knee; Z96.651 Presence of right artificial knee joint | CPT/HCPCS: 99213 ==

== ENCOUNTER → 2019-05-02 07:58 | Outpatient (BNVA) | payer MEDICARE, MEDICAID, SELFPAY | PROVIDERS: PCP Nurse Practitioner Family; Referring Provider Nurse Practitioner Family; Visit Provider Student in an Organized Health Care Education/Training Program | DX: M25.562 Pain in left knee (principal); M25.512 Pain in left shoulder; Z47.89 Encounter for other orthopedic aftercare | CPT/HCPCS: 99213 ==

== ENCOUNTER 2019-05-02 12:20 | Emergency (ER) | payer MEDICARE, MEDICAID, SELFPAY ==
[2019-05-02 12:24] VITALS: BP 123/90; PULSE 94; RESP 16; TEMP 36.3; O2SAT 98
--- NOTE | 2019-05-02 12:31 | DI.CT_ITS ---
SYMPTOMS/DIAGNOSIS: LEFT LOWER ABDOMINAL PAIN CT SCAN OF THE ABDOMEN AND PELVIS: CT scan of the abdomen and pelvis was performed following the uneventful administration of intravenous contrast material. Comparison examination is 02/20/15. Dependent atelectatic changes are seen in the lung bases. The liver is normal in size. No suspicious hepatic mass is seen. There is focal fatty infiltration at the region of the ligamentum teres. The portal, superior mesenteric and splenic veins are patent. The gallbladder is negative. There is no biliary ductal dilatation. The pancreas, spleen and adrenal glands are unremarkable. The kidneys show normal and symmetric enhancement. No solid renal mass or obstruction is seen. There are bilateral renal cysts present. The urinary bladder is intact. The reproductive organs are unremarkable. The abdominal aorta is of normal caliber. No significant abdominal or pelvic adenopathy, ascites or pneumoperitoneum is seen. Incidental note is made of a retroaortic left renal vein. The bowel shows no evidence of obstruction or inflammation. There is a normal appendix present. Mild degenerative changes are seen in the spine. IMPRESSION: No evidence of an acute abdominal or pelvic process. The findings were discussed with the Emergency Department on the date of the examination.
--- NOTE | 2019-05-02 12:38 | ED.GENADUL_ITS ---
Discharge Plan Disposition Patient Disposition: HOME Condition: Stable Discharge Details Chief Complaint: Abd Prob Clinical Impression: Abdominal pain Primary Care Provider: Lucy Courtney ED Provider: Akira Guerra Home Meds and New Rx's Prescriptions: Continued dihydroergotamine [Migranal] 1 ML spray,non-aerosol 1 ml NS PRN RF: 0 cyproheptadine 4 MG tablet 4 mg PO HS RF: 0 cetirizine [Zyrtec] 10 MG tablet 10 mg PO DAILY RF: 0 ondansetron HCl [Zofran] 4 MG tablet 4 mg PO PRN RF: 0 meclizine 12.5 MG tablet 12.5 mg PO BID RF: 0 polyethylene glycol 3350(bulk) 1 GM granules 17 gm PO DAILY PRNQty: 527 RF: 3 omeprazole 40 MG capsule,delayed release(DR/EC) 40 mg PO BID Qty: 60 RF: 3 acetaminophen 500 mg capsule 1,000 mg PO Q8H PRN (Reason: pain) Qty: 90 RF: 0 diazepam 5 mg tablet 5 mg PO TID PRN (Reason: muscle spasm) Qty: 21 RF: 0 hydromorphone 2 mg tablet 2 mg PO BID MDD 4mg PRN (Reason: pain) Qty: 28 RF: 0 venlafaxine 75 MG tablet 225 mg PO DAILY RF: 0 topiramate 100 MG tablet 100 mg PO BID RF: 0 Atrovent HFA 1 PUFF HFA aerosol inhaler 1 puff Inhalation Q8H PRNRF: 0 albuterol sulfate [Proventil HFA] 200 PUFF HFA aerosol inhaler 2 puff Inhalation PRN PRNRF: 0 Advair HFA 60 PUFF HFA aerosol inhaler 2 puff Inhalation DAILY PRNRF: 0 Narcan 4 MG spray,non-aerosol 4 mg NS PRN Qty: 2 RF: 0 nicotine 14 mg/24 hr Patch 24 Hour 1 patch TRANSDERMAL DAILY RF: 0 clonazepam 1 mg Tablet 1 mg PO TID PRNRF: 0 nicotine 21 mg/24 hr Patch 24 Hour 1 patch TRANSDERMAL DAILY RF: 0 nicotine 7 mg/24 hr Patch 24 Hour 1 patch TRANSDERMAL Q24H RF: 0 gabapentin 100 mg Capsule 100 mg PO DAILY RF: 0 ibuprofen 600 mg tablet 600 mg PO TID PRNQty: 90 RF: 3 Discharge Instructions Instructions: Abdominal Pain (ED) Additional Instructions: your lab work and cat scan did not show any concerning findings follow up with your primary care provider within a week especially if symptoms continue you can take 1000mg tylenol and 600mg ibuprofen every 6 hours for pain as needed if you have severe worsening of pain, persistent vomit or high fevers return to the emergency department Medical Decision Making 48 yo female with no prior abdominal surgeries comes in with cc of abd pain. States it has been a week of pain and localized to the left lower abdomen, janny es fevers, travel, new medications. No vomit, has had loose stools. On exam she has no upper abdominal tenderness but does have lower abdominal tenderness Left greater than right. Will obtain lab work and imaging to eval for diverticulitis among other pathology pt's labs unremarkable and ct per Dr. Arredondo unremarkable, no acute findings. Pt is now sleeping and states she feels better and has no tenderness on exam at this time. Feel she can be d/c'd and f/u with pcp given pain is all but gone with toradol. Could be muscle wall pain or strain, return precautions Differential Diagnosis diverticulitis, colitis, uti Imaging Data Radiologic Study: Attestation: I personally reviewed and interpreted this imaging study as follows: Imaging: CT Scan Radiologist's impression: no acute findings per Dr. Arredondo Lab Data Lab results reviewed: Yes I reviewed the patient's lab results. HPI General Mode of arrival: ambulatory . Date/Time Provider Initiated Documentation: 05/02/19 12:22 . Limitations to Documentation: no limitations . Information obtained by: patient . History of Present Illness 48 year old F presents to the emergency department with the chief complaint of abdominal pain, described as moderate, Quality is described as aching, and is localized to the abdomen. Patient reports no radiation. Patient started experiencing this day(s) (7) and it has been constant. No relieving factors improve symptom(s), No exacerbating factors reported . Patient notes other (diarrhea). Patient did receive the following treatments prior to arrival, none Related Data Home Medications Medication Instructions Recorded Confirmed venlafaxine 225 mg PO DAILY 05/16/16 05/02/19 topiramate 100 mg PO BID 06/18/16 05/02/19 dihydroergotamine [Migranal] 1 ml NS PRN script 07/07/16 05/02/19 Atrovent HFA 1 puff INHALATION Q8H PRN 12/05/16 05/02/19 albuterol sulfate [Proventil HFA] 2 puff INHALATION PRN PRN 02/15/17 05/02/19 cyproheptadine 4 mg PO HS 03/30/17 05/02/19 Advair HFA 2 puff INHALATION DAILY PRN 09/26/17 05/02/19 Narcan 4 mg NS PRN #2 spray 09/27/17 05/02/19 cetirizine [Zyrtec] 10 mg PO DAILY tab-cap 01/31/18 05/02/19 meclizine 12.5 mg PO BID 01/31/18 05/02/19 ondansetron HCl [Zofran] 4 mg PO PRN 01/31/18 05/02/19 polyethylene glycol 3350(bulk) 17 gm PO DAILY PRN #527 gm 01/31/18 05/02/19 omeprazole 40 mg PO BID #60 tab-cap 03/31/18 05/02/19 clonazepam 1 mg PO TID PRN 11/29/18 05/02/19 gabapentin 100 mg PO DAILY 11/29/18 05/02/19 nicotine 1 patch TRANSDERMAL DAILY 11/29/18 05/02/19 nicotine 1 patch TRANSDERMAL DAILY 11/29/18 05/02/19 nicotine 1 patch TRANSDERMAL Q24H 11/29/18 05/02/19 ibuprofen 600 mg PO TID PRN #90 tab 11/30/18 05/02/19 acetaminophen 500 mg capsule 1,000 mg PO Q8H PRN #90 cap 01/26/19 05/02/19 diazepam 5 mg tablet 5 mg PO TID PRN #21 tab 02/12/19 05/02/19 hydromorphone 2 mg tablet 2 mg PO BID PRN #28 tab MDD 4mg 03/12/19 05/02/19 Previous Rx's Medication Instructions Recorded Narcan 4 mg NS PRN #2 spray 09/27/17 omeprazole 40 mg PO BID #60 tab-cap 03/31/18 ibuprofen 600 mg PO TID PRN #90 tab 11/30/18 acetaminophen 500 mg capsule 1,000 mg PO Q8H PRN #90 cap 01/26/19 diazepam 5 mg tablet 5 mg PO TID PRN #21 tab 03/18/19 hydromorphone 2 mg tablet 2 mg PO BID PRN #28 tab MDD 4mg 03/12/19 Allergies Allergy/AdvReac Type Severity Reaction Status Date / Time codeine Allergy Intermediate Itching Unverified 05/02/19 12:27 oxycodone HCl [From Percocet] Allergy Intermediate Anaphylaxsi Unverified 05/02/19 12:27 s morphine Allergy Itching Verified 05/02/19 12:27 General Stated Complaint: Abd Prob CRISTI: 3 Review of Systems Review of Systems All systems reviewed & are unremarkable except as noted in HPI and below Constitutional Denies chills and Denies fever(s) Cardiovascular Denies chest pain and Denies dyspnea Respiratory Denies cough and Denies dyspnea Gastrointestinal Denies vomiting PFSH Family History Father Rheumatoid arthritis Brother Rheumatoid arthritis Social History Smoking/Tobacco Use Status: Current every day Drug use: Occasionally Do you feel safe in your relationship?: Yes Exam Const General: no acute distress Orientation: alert HENMT Head: normal to inspection Ears: external ears normal General nose exam: external nose normal Mouth: moist mucous membranes Eyes General: appearance normal, both eyes and all related structures Neck Neck: normal visual inspection Resp Effort & Inspection: normal respiratory effort and able to speak in complete sentences Cardio Rate: regular rate Skin General skin exam: no rashes or lesions noted Neuro General: alert and oriented x3 Extrem General: normal to inspection Psych Mental Status: mental status grossly normal Course Vital Signs Temperature 36.3 C L 05/02/19 12:24 Pulse 94 H 05/02/19 12:24 Respiratory Rate 16 05/02/19 12:24 Blood Pressure 123/90 05/02/19 12:24 Pulse Oximetry 98 05/02/19 12:24 Temperature 36.3 C L 05/02/19 12:24 Temperature Source Skin 05/02/19 12:24 Pulse 94 H 05/02/19 12:24 Respiratory Rate 16 05/02/19 12:24 Respiratory Effort Non-Labored 05/02/19 12:24 Blood Pressure 123/90 05/02/19 12:24 Blood Pressure Position Sitting 05/02/19 12:24 Pulse Oximetry 98 05/02/19 12:24 Oxygen Delivery Method Room Air 05/02/19 12:24 Oxygen Flow Rate 0 05/02/19 12:24 Pain Level 9 05/02/19 12:24
[2019-05-02 13:07] LABS: Absolute Basophil Count 0.01 k/cumm (0.0-0.2); Absolute Lymphocyte Count 2.93 k/cumm (1.2-3.4); Absolute Monocyte Count 0.47 k/cumm (0.11-0.7); Absolute Neutrophil Count 3.36 k/cumm (1.2-6.7); Basophils % 0.1; HCT 41.9 % (36.0-46.0); HGB 13.7 g/dL (12.0-15.5); Lymphocytes % 43.3; Mean Corp. HGB Concentration 32.7 g/dL (32.0-36.0); Mean Corpuscular Hemoglobin 29.7 pg (27.0-33.0); Mean Corpuscular Volume 90.7 fL (80-95); Mean Platelet Volume 10.4 fL (8.0-11.0); Monocytes % 6.9; Neutrophils % 49.7; Platelet Count 214 x1000/uL (130-400); RBC 4.62 m/cumm (4.00-5.20); RBC Distribution Width 14.5 % (11.7-14.6); White Blood Cell Count 6.77 k/cumm (4.4-10.8)
[2019-05-02] MEDS: Ketorolac 15 MG/ML VIAL IVP (13:12)
[2019-05-02] MEDS: Normal Saline 1,000 ML 1000 ML IV (13:13)
[2019-05-02 13:15] VITALS: BP 113/80; PULSE 72; RESP 16; O2SAT 98
[2019-05-02 13:36] LABS: ALT 27 U/L (12-78); AST 16 U/L (15-37); Albumin 3.3 g/dL (3.4-5.0); Alkaline Phosphatase 86 U/L (46-116); Anion Gap 7.3 mmol/L (3-11); BUN 11 mg/dL (7-18); Bilirubin, Total 0.5 mg/dL (0.2-1.0); CO2 24.7 mmol/L (21.0-32.0); CREATININE 0.84 mg/dL (0.55-1.02); Calcium 8.9 mg/dL (8.5-10.1); Chloride 107 mmol/L (98-107); Glucose 98 mg/dL (70-100); Lipase 639 U/L (73-393); Potassium 3.7 mmol/L (3.5-5.1); Sodium 139 mmol/L (136-145); Total Protein 7.1 g/dL (6.4-8.2)
[2019-05-02] MEDS: Omnipaque 350 MG/ML 100 ML BTL IJ (14:05)
== END 2019-05-02 14:41 | disposition home or self-care (01) ==
PROVIDERS: Emergency Provider Emergency Medicine; PCP Nurse Practitioner Family
DX: R10.32 Left lower quadrant pain (principal)
CPT/HCPCS: 36415; 80053; 83690; 96361; 96374; 99213; 99285; 74177; 81003; 85025; 99284; J1885; J3490

== ENCOUNTER 2019-05-17 12:23 | Day surgery (SDC) | payer MEDICARE, MEDICAID, SELFPAY ==
[2019-05-17] VITALS (7 sets, daily range): BP systolic 122–130; BP diastolic 82–97; PULSE 80–108; RESP 12–20; TEMP 35.7–36.7; O2SAT 92–96
[2019-05-17] MEDS: Lactated Ringers 1,000 ML 80 ML IV (13:11)
--- NOTE | 2019-05-17 14:01 | W.PM.DSUDISC ---
Documented by User: Tanna Kuhn 05/17/19 14:10 Discharge Plan Disposition Patient Disposition: HOME Condition: Good Discharge Details Reason For Visit: Left medial meniscus tear Attending Provider: Junior Brunson Primary Care Provider: Lucy Courtney Home Meds and New Rx's Prescriptions: New hydromorphone 2 mg tablet 2 mg PO Q4H PRN (Reason: severe post-operative pain) Qty: 6 RF: 0 Continued dihydroergotamine [Migranal] 1 ML spray,non-aerosol 1 ml NS PRN RF: 0 cetirizine [Zyrtec] 10 MG tablet 10 mg PO DAILY RF: 0 ondansetron HCl [Zofran] 4 MG tablet 4 mg PO PRN RF: 0 meclizine 12.5 MG tablet 12.5 mg PO BID RF: 0 polyethylene glycol 3350(bulk) 1 GM granules 17 gm PO DAILY PRNQty: 527 RF: 3 omeprazole 40 MG capsule,delayed release(DR/EC) 40 mg PO BID Qty: 60 RF: 3 acetaminophen 500 mg capsule 1,000 mg PO Q8H PRN (Reason: pain) Qty: 90 RF: 0 venlafaxine 75 MG tablet 225 mg PO DAILY RF: 0 topiramate 100 MG tablet 100 mg PO BID RF: 0 Atrovent HFA 1 PUFF HFA aerosol inhaler 1 puff Inhalation Q8H PRNRF: 0 albuterol sulfate [Proventil HFA] 200 PUFF HFA aerosol inhaler 2 puff Inhalation PRN PRNRF: 0 Narcan 4 MG spray,non-aerosol 4 mg NS PRN Qty: 2 RF: 0 nicotine 14 mg/24 hr Patch 24 Hour 1 patch TRANSDERMAL DAILY RF: 0 clonazepam 1 mg Tablet 1 mg PO TID PRNRF: 0 nicotine 21 mg/24 hr Patch 24 Hour 1 patch TRANSDERMAL DAILY RF: 0 nicotine 7 mg/24 hr Patch 24 Hour 1 patch TRANSDERMAL Q24H RF: 0 gabapentin 100 mg Capsule 100 mg PO DAILY RF: 0 ibuprofen 600 mg tablet 600 mg PO TID PRNQty: 90 RF: 3 Discharge Instructions Stand Alone Forms: [facility], [facility] Post op Instructions, Taiwo Hussein (DSU) Referrals: Junior Brunson MD [ [facility] STAFF PHYSICIAN] - Equipment/Supplies: Partial Weight Bearing Crutches Activity:: Activity as Tolerated Remove Dressings/Wound Care:: 72 hours Shower/Bathe:: 72 hours Diet:: As Tolerated Discharge Orders Discharge Orders: Discharge Order (Routine); Ordered 05/17/19 Ordered By: Tanna Kuhn Discharge Data Discharge Date/Time-TO BE ENTERED AT DEPARTURE: 05/17/19 16:37 DS: Diagnosis Discharge Diagnosis (1) Tear of medial meniscus of left knee: Status: Chronic Documented by User: Junior Brunson MD 05/18/19 16:34 Discharge Plan Disposition Patient Disposition: HOME Condition: Good Discharge Details Reason For Visit: Left medial meniscus tear Attending Provider: Junior Brunson Primary Care Provider: Lucy Courtney Home Meds and New Rx's Prescriptions: New hydromorphone 2 mg tablet 2 mg PO Q4H PRN (Reason: severe post-operative pain) Qty: 6 RF: 0 Continued dihydroergotamine [Migranal] 1 ML spray,non-aerosol 1 ml NS PRN RF: 0 cetirizine [Zyrtec] 10 MG tablet 10 mg PO DAILY RF: 0 ondansetron HCl [Zofran] 4 MG tablet 4 mg PO PRN RF: 0 meclizine 12.5 MG tablet 12.5 mg PO BID RF: 0 polyethylene glycol 3350(bulk) 1 GM granules 17 gm PO DAILY PRNQty: 527 RF: 3 omeprazole 40 MG capsule,delayed release(DR/EC) 40 mg PO BID Qty: 60 RF: 3 acetaminophen 500 mg capsule 1,000 mg PO Q8H PRN (Reason: pain) Qty: 90 RF: 0 venlafaxine 75 MG tablet 225 mg PO DAILY RF: 0 topiramate 100 MG tablet 100 mg PO BID RF: 0 Atrovent HFA 1 PUFF HFA aerosol inhaler 1 puff Inhalation Q8H PRNRF: 0 albuterol sulfate [Proventil HFA] 200 PUFF HFA aerosol inhaler 2 puff Inhalation PRN PRNRF: 0 Narcan 4 MG spray,non-aerosol 4 mg NS PRN Qty: 2 RF: 0 nicotine 14 mg/24 hr Patch 24 Hour 1 patch TRANSDERMAL DAILY RF: 0 clonazepam 1 mg Tablet 1 mg PO TID PRNRF: 0 nicotine 21 mg/24 hr Patch 24 Hour 1 patch TRANSDERMAL DAILY RF: 0 nicotine 7 mg/24 hr Patch 24 Hour 1 patch TRANSDERMAL Q24H RF: 0 gabapentin 100 mg Capsule 100 mg PO DAILY RF: 0 ibuprofen 600 mg tablet 600 mg PO TID PRNQty: 90 RF: 3 Discharge Instructions Stand Alone Forms: [facility], [facility] Post op Instructions, Taiwo Hussein (DSU) Referrals: Junior Brunson MD [ [facility] STAFF PHYSICIAN] - Equipment/Supplies: Partial Weight Bearing Crutches Activity:: Activity as Tolerated Remove Dressings/Wound Care:: 72 hours Shower/Bathe:: 72 hours Diet:: As Tolerated Discharge Orders Discharge Orders: Discharge Order (Routine); Ordered 05/17/19 Ordered By: Tanna Kuhn Discharge Data Discharge Date/Time-TO BE ENTERED AT DEPARTURE: 05/17/19 16:37
[2019-05-17] MEDS: ceFAZolin 2 GM/50 ML BAG IVPB (14:15)
[2019-05-17] MEDS: Bupivacaine 0.5% Pres-Free 30 ML VIAL (14:54)
[2019-05-17] MEDS: Lactated Ringers 1,000 ML 30 ML IV (15:02)
[2019-05-17] MEDS: fentaNYL 100 MCG/2 ML VIAL IVP (15:17)
--- NOTE | 2019-05-18 16:38 | ROE_ITS ---
Date of service: 05/17/19 Time of Service: 15:34 Operative Note DATE OF PROCEDURE: 05/17/19 PRE-OP DIAGNOSIS: Left knee medial meniscal tear POST-OP DIAGNOSIS: other (Left knee medial meniscal tear, tricompartmental arthritis) PROCEDURE: Left knee partial medial meniscectomy, trochlear chondroplasty SURGEON: Junior Brunson ANESTHESIA: GETA ESTIMATED BLOOD LOSS: 0 PATHOLOGY: none sent COMPLICATIONS: None Patient was transported to: PACU Patient's condition: stable Indications: I have seen Dinesh in clinic for symptoms of a meniscus tear. This was confirmed based on MRI and exam findings. Nonoperative measures were exhausted but disability and pain persisted. X-rays did not show any significant arthritis. I discussed knee arthroscopy with meniscal intervention with the patient. I reviewed the risks of the procedure to include, but not limited to, bleeding, infection, pain, stiffness, damage to nerves or vessels, recurrence, blood clot. Despite these risks, the patient elected to proceed. Findings: A diagnostic arthroscopy was performed with the following findings: Suprapatellar Pouch: Mild inflammatory changes, [No loose bodies] Medial Compartment: [Complex medial meniscal tear], [Intact meniscal root], grade III chondromalacia of the femur and grade 3 chondral malacia of the tibia, [No loose bodies] Notch: [ACL and PCL were intact] Lateral Compartment: Mild meniscal fraying, [Intact meniscal root], grade II/III chondromalacia, [No loose bodies] Patellofemoral Compartment: Grade IV chondromalacia of the trochlea with a large loose cartilage flap, mild lateral patellar maltracking Procedure Description: Dinesh was greeted in the preoperative holding area where the correct side was identified and marked. The consent was reviewed with the patient and signed. The history and physical was updated. All questions were answered. Dinesh was taken back to the operating room. The patient was placed into the supine position on the operating room table. A nonsterile tourniquet was placed high onto the leg but not used. All bony prominences were well padded. Prophylactic antibiotics in the form of cefazolin were administered. The left leg was then prepped with Chloraprep and draped in a standard fashion with stockinette and extremity drape. A timeout to confirm correct identity, side and site, procedure, allergies, anesthesia, and medical concerns was performed. The leg was placed into a pneumatic leg posada, SPIDER2. A standard lateral portal was made at the lateral border of the patella tendon in line with the inferior pole of the patella, soft spot. The skin and deep tissue was incised sharply and the blunt trochar was inserted atraumatically. A diagnostic arthroscopy was performed and the findings are listed above. The suprapatellar pouch had mild inflammatory changes. The patellofemoral articulation showed significant chondromalacia with a large loose piece of cartilage off of the lateral trochlea as well as lateral patellar maltracking. The lateral gutter had no loose bodies and the medial gutter had no loose bodies. The knee was b rought into some valgus stress in extension to open the medial compartment. A medial portal was made, localized by a spinal needle. The portal was created with an #11 blade through skin and capsule under direct visualization avoiding any meniscal injury. A probe was then inserted into the medial compartment. The medial compartment was fully inspected. The chondral surface of the tibia showed grade II/III chondromalacia and the surface of the femur showed grade III chondromalacia. The medial meniscus had a complex meniscal tear with both radial and horizontal components. After evaluation, the meniscus was debrided down to a stable base using a series of biters and arthroscopic lani. It was probed afterwards to confirm that the tear had been removed and the meniscus was stable. Cartilage surfaces were debrided of any flaps, leaving any intact fibers. The notch was then inspected which showed an intact ACL and an intact PCL. The leg was then brought into a figure of 4 position. The lateral compartment was fully inspected with the arthroscope and a probe. The chondral surface of the lateral femur showed grade II chondromalacia. The chondral surface of the lateral tibia showed grade II/III chondromalacia. The lateral meniscus had no meniscal tear. The arthroscope was brought back into the suprapatellar pouch and the leg was in full extension. The knee was thoroughly irrigated with the arthroscopic fluid on high flow and pressure. Inflow was stopped and excess fluid was removed. The wounds were closed with 4-0 Nylon. They were dressed with Xeroform, 4x4 ga uze, ABD pad, Kerlix and an SERGIO wrap. A cryo-cuff was applied. The patient tolerated the procedure well and was returned to the Same Day Surgery area in a stable condition suffering no known complication.
== END 2019-05-17 16:37 | disposition home or self-care (01) ==
PROVIDERS: PCP Nurse Practitioner Family; Visit Provider Student in an Organized Health Care Education/Training Program
PROC: (CPT 29870; principal; 2019-05-17 13:45)
DX: S83.232A Complex tear of medial meniscus, current injury, left knee, initial encounter (principal); M17.12 Unilateral primary osteoarthritis, left knee; M94.262 Chondromalacia, left knee; M25.862 Other specified joint disorders, left knee; X58.XXXA Exposure to other specified factors, initial encounter; K21.9 Gastro-esophageal reflux disease without esophagitis; F17.210 Nicotine dependence, cigarettes, uncomplicated; G47.33 Obstructive sleep apnea (adult) (pediatric); F43.10 Post-traumatic stress disorder, unspecified
CPT/HCPCS: 29881; E0114; J0690; J1100; J1885; J2250; J2405; J3010

== ENCOUNTER → 2019-05-30 14:24 | Outpatient (BNVA) | payer MEDICARE, MEDICAID, SELFPAY | PROVIDERS: PCP Nurse Practitioner Family; Referring Provider Nurse Practitioner Family; Visit Provider Student in an Organized Health Care Education/Training Program | DX: S83.242A Other tear of medial meniscus, current injury, left knee, initial encounter (principal); X58.XXXA Exposure to other specified factors, initial encounter ==

== ENCOUNTER 2019-06-06 15:13 | Emergency (ER) | payer MEDICARE, MEDICAID, SELFPAY ==
[2019-06-06] VITALS (22 sets, daily range): BP systolic 111–144; BP diastolic 59–93; PULSE 75–104; RESP 11–22; TEMP 36.3; O2SAT 94–99
--- NOTE | 2019-06-06 15:26 | DI.COMBO_ITS ---
SYMPTOM/DIAGNOSIS: CHEST PAIN, + D DIMER PE CHEST CT: CT angiography was performed with multi slice acquisition and multi planar and 3D reconstruction. Routine examination was performed. Comparison examination is 12/05/16. There are again seen left thyroid nodules. These appear stable. The thoracic aorta is of normal caliber. No evidence of aneurysm or dissection. No evidence of a pulmonary embolus is present. The heart size is within normal limits. No significant pericardial effusion is seen. No findings to suggest right ventricular dysfunction are present. No evidence of thoracic adenopathy, pleural effusion or pneumothorax is identified. No focal consolidating infiltrate is present. Dependent atelectatic changes are seen in the lung bases. The tracheobronchial tree is unremarkable. Upper abdominal images show no acute abnormality. Degenerative changes are seen in the spine. IMPRESSION: No evidence of a pulmonary embolus, thoracic aortic dissection or aneurysm. PA AND LATERAL CHEST: Comparison is made with 01/13/18. Heart size and pulmonary vasculature are within normal limits. The lungs are clear and well expanded. No effusions or pneumothoraces are identified. Degenerative changes are seen in the spine. Stable resorptive changes seen at the distal ends of both clavicles are unchanged. IMPRESSION: No acute pulmonary process.
--- NOTE | 2019-06-06 15:28 | W.ED.GENAD ---
Discharge Plan Disposition Patient Disposition: HOME Condition: Good Discharge Details Chief Complaint: Chest Pain Clinical Impression: Chest pain Primary Care Provider: Lucy Courtney ED Provider: Ramon Navarro [place] Meds and New Rx's Prescriptions: Continued dihydroergotamine [Migranal] 1 ML spray,non-aerosol 1 ml NS PRN RF: 0 cetirizine [Zyrtec] 10 MG tablet 10 mg PO DAILY RF: 0 ondansetron HCl [Zofran] 4 MG tablet 4 mg PO PRN RF: 0 meclizine 12.5 MG tablet 12.5 mg PO BID RF: 0 polyethylene glycol 3350(bulk) 1 GM granules 17 gm PO DAILY PRNQty: 527 RF: 3 omeprazole 40 MG capsule,delayed release(DR/EC) 40 mg PO BID Qty: 60 RF: 3 acetaminophen 500 mg capsule 1,000 mg PO Q8H PRN (Reason: pain) Qty: 90 RF: 0 venlafaxine 75 MG tablet 225 mg PO DAILY RF: 0 topiramate 100 MG tablet 100 mg PO BID RF: 0 Atrovent HFA 1 PUFF HFA aerosol inhaler 1 puff Inhalation Q8H PRNRF: 0 albuterol sulfate [Proventil HFA] 200 PUFF HFA aerosol inhaler 2 puff Inhalation PRN PRNRF: 0 Narcan 4 MG spray,non-aerosol 4 mg NS PRN Qty: 2 RF: 0 nicotine 14 mg/24 hr Patch 24 Hour 1 patch TRANSDERMAL DAILY RF: 0 clonazepam 1 mg Tablet 1 mg PO TID PRNRF: 0 nicotine 21 mg/24 hr Patch 24 Hour 1 patch TRANSDERMAL DAILY RF: 0 nicotine 7 mg/24 hr Patch 24 Hour 1 patch TRANSDERMAL Q24H RF: 0 gabapentin 100 mg Capsule 100 mg PO DAILY RF: 0 ibuprofen 600 mg tablet 600 mg PO TID PRNQty: 90 RF: 3 hydromorphone 2 mg tablet 2 mg PO Q4H PRN (Reason: severe post-operative pain) Qty: 6 RF: 0 Discharge Instructions Instructions: Chest Pain (ED) Additional Instructions: Your evaluation for chest pain today shows normal EKGs, normal laboratory studies, stable CT of the chest with no evidence of blood clot. Please follow-up with your primary care physician. Return to ED if you develop increasing shortness of breath, worsening/persistent chest pain, fever, abdominal pain, other concerns. Referrals: Lucy Courtney [Primary Care Provider] - Medical Decision Making <Akira Guerra MD - Last Filed: 06/06/19 15:35> 49 yo female with hx of copd, former smoker, anxiety, who comes in with chief complaint of chest pain intermittently for 2 weeks that worsens with deep breaths. She denies fevers, falls, recent travel. She has significant pain with palpation of the anterior chest wall without rashes or visible or palpable deformities. No leg swelling or jvd, no abdominal tenderness. EKG shows no acute st t wave findings, HEART score is 3, will send troponin. Wells low but given pleuritic nature of her pain will send d dimer to screen for PE. no tearing back pain so doubt dissection. Will monitor Pt signed out to oncoming provider pending lab and imaging results Differential Diagnosis nstemi, dissection, costochondritis ECG Data Attestation: I personally reviewed and interpreted this ECG (s) as follows: Prior ECG tracings: not available for review Interpretation: sinus rhythm ,rate of 90, pr 160, no acute st t wave ischemic findings <Ramon Navarro MD - Last Filed: 06/06/19 19:10> 17:00 -patient signed out to me pending laboratory results after presenting with sharp/pleuritic type, intermittent substernal to left-sided chest pain on and off for the last 2 to [address] Guerra, please see his note for initial evaluation. Laboratory studies are unremarkable other than a positive d-dimer. First troponin is negative. CBC, chemistries, liver function are fine. Chest x-ray per radiology unremarkable. Because of the patient's complaint of intermittent, pleuritic chest pain with a positive d-dimer we will proceed with CT of chest for PE. Have discussed this with patient. We will plan on second EKG and troponin at about 18:30 hrs. 19:00 -CTA of the chest is negative for PE or any other significant pulmonary pathology. There is no dissection. She has stable thyroid nodules. Second EKG remains normal. Second troponin is negative. Of note patient had a normal MIBI stress test in December 2017. Patient is low risk with HEART score of 2. Patient will be discharged home to follow-up with primary care as outpatient. Lab Data Lab results reviewed: Yes I reviewed the patient's lab results. ECG Data Attestation: I personally reviewed and interpreted this ECG (s) as follows: Prior ECG tracings: available for review Interpretation: Second EKG is sinus rhythm at 88. She has normal axis and intervals. She has no acute ST changes. There is no change from EKG done earlier today. Normal EKG. HPI <Akira Guerra MD - Last Filed: 06/06/19 15:35> General Mode of arrival: EMS. Date/Time Provider Initiated Documentation: 06/06/19 15:19. Limitations to Documentation: no limitations. Information obtained by: patient. History of Present Illness 49 year old F presents to the emergency department with the chief complaint of chest pain, described as moderate, Quality is described as aching, and is localized to the chest. Patient reports no radiation. Patient started experiencing this week(s) (2) and it has been constant. No relieving factors improve symptom(s), Other factors that worsen symptoms (deep breaths) . Patient did receive the following treatments prior to arrival, none Related Data Home Medications Medication Instructions Recorded Confirmed venlafaxine 225 mg PO DAILY 05/16/16 05/30/19 topiramate 100 mg PO BID 06/18/16 05/30/19 dihydroergotamine [Migranal] 1 ml NS PRN script 07/07/16 05/30/19 Atrovent HFA 1 puff INHALATION Q8H PRN 12/05/16 05/30/19 albuterol sulfate [Proventil HFA] 2 puff INHALATION PRN PRN 02/15/17 05/30/19 Narcan 4 mg NS PRN #2 spray 09/27/17 05/30/19 cetirizine [Zyrtec] 10 mg PO DAILY tab-cap 01/31/18 05/30/19 meclizine 12.5 mg PO BID 01/31/18 05/30/19 ondansetron HCl [Zofran] 4 mg PO PRN 01/31/18 05/30/19 polyethylene glycol 3350(bulk) 17 gm PO DAILY PRN #527 gm 01/31/18 05/30/19 omeprazole 40 mg PO BID #60 tab-cap 03/31/18 05/30/19 clonazepam 1 mg PO TID PRN 11/29/18 05/30/19 gabapentin 100 mg PO DAILY 11/29/18 05/30/19 nicotine 1 patch TRANSDERMAL DAILY 11/29/18 05/30/19 nicotine 1 patch TRANSDERMAL DAILY 11/29/18 05/30/19 nicotine 1 patch TRANSDERMAL Q24H 11/29/18 05/30/19 ibuprofen 600 mg PO TID PRN #90 tab 11/30/18 05/30/19 acetaminophen 500 mg capsule 1,000 mg PO Q8H PRN #90 cap 01/26/19 05/30/19 hydromorphone 2 mg PO Q4H PRN #6 tab 05/17/19 05/30/19 Previous Rx's Medication Instructions Recorded Narcan 4 mg NS PRN #2 spray 09/27/17 omeprazole 40 mg PO BID #60 tab-cap 03/31/18 ibuprofen 600 mg PO TID PRN #90 tab 11/30/18 acetaminophen 500 mg capsule 1,000 mg PO Q8H PRN #90 cap 01/26/19 hydromorphone 2 mg PO Q4H PRN #6 tab 05/17/19 Allergies Allergy/AdvReac Type Severity Reaction Status Date / Time adhesive Allergy Intermediate gets red Verified 06/06/19 16:13 and welts up codeine Allergy Intermediate Itching Unverified 06/06/19 16:13 oxycodone HCl [From Percocet] Allergy Intermediate Anaphylaxsi Unverified 06/06/19 16:13 s morphine Allergy Itching Verified 06/06/19 16:13 General CRISTI: 3 Review of Systems <Akira Guerra MD - Last Filed: 06/06/19 15:35> Review of Systems All systems reviewed & are unremarkable except as noted in HPI and below Constitutional Denies chills, Denies fever(s) and Denies weakness Respiratory Denies cough Gastrointestinal Denies abdominal pain, Denies nausea and Denies vomiting Integumentary/Breasts Denies rash Neurologic Denies weakness Endocrine Denies cold intolerance PFSH <Akira Guerra MD - Last Filed: 06/06/19 15:35> Medical History Anxiety Asthma Black stools Chest pain Chronic pain Cigarette smoker Cough Depression Dizziness Dysphagia Family history of colon cancer GERD (gastroesophageal reflux disease) Hyperthyroidism Intertrigo Migraine Obese Obstructive sleep apnea Onychomycosis PTSD (post-traumatic stress disorder) Pedal edema Postmenopausal bleeding Right hand pain Shoulder pain, right Skin nodule Syncope Thyroid nodule Vertigo Surgical History Colonoscopy - MAC (02/14/18) EGD - MAC (02/14/18) Replacement of total knee joint Rotator Cuff Repair Family History Father Rheumatoid arthritis Brother Rheumatoid arthritis Social History Smoking/Tobacco Use Status: Current every day Tobacco Type: cigarettes Tobacco: How many years used: 25 Alcohol Intake: current Alcohol Intake frequency: holidays/special occasions only Alcohol type: wine Drug use: Occasionally Substance use type: marijuana Details: marijuana couple days since I smoked Do you feel safe at home: Yes Additional Social history: no relationship, thats done Exam <Akira Guerra MD - Last Filed: 06/06/19 15:35> Const General: no acute distress Orientation: alert HENMT Head: normal to inspection Ears: external ears normal General nose exam: external nose normal Mouth: moist mucous membranes Eyes General: appearance normal, both eyes and all related structures Neck Neck: normal visual inspection Resp Effort & Inspection: normal respiratory effort and able to speak in complete sentences Cardio Rate: regular rate Skin General skin exam: no rashes or lesions noted Neuro General: alert and oriented x3 Extrem General: normal to inspection Psych Mental Status: mental status grossly normal Sign Out <Akira Guerra MD - Last Filed: 06/06/19 15:35> Sign Out Data: Sign Out Comment: follow up on lab work and imaging results Last updated by Akira Guerra MD at 06/06/19 15:36
[2019-06-06 15:42] LABS: Abs Immature Grans 0.02 k/cumm (0.0-0.09); Absolute Basophil Count 0.01 k/cumm (0.0-0.2); Absolute Monocyte Count 0.75 k/cumm (0.11-0.7); Basophils % 0.1; HGB 14.7 g/dL (12.0-15.5); Immature Grans % 0.2; Lymphocytes % 42.1; Mean Corp. HGB Concentration 32.7 g/dL (32.0-36.0); Mean Corpuscular Volume 88.8 fL (80-95); Monocytes % 7.5; Neutrophils % 50.1; Platelet Count 326 x1000/uL (130-400); RBC 5.07 m/cumm (4.00-5.20); RBC Distribution Width 14.7 % (11.7-14.6); White Blood Cell Count 9.98 k/cumm (4.4-10.8)
[2019-06-06 15:55] LABS: PTT Activated 24.4 sec (21.0-31.4); Prothrombin Time 10.4 sec (9.3-11.0)
[2019-06-06 16:01] LABS: ALT 19 U/L (12-78); AST 13 U/L (15-37); Albumin 3.8 g/dL (3.4-5.0); Alkaline Phosphatase 109 U/L (46-116); Anion Gap 12.3 mmol/L (3-11); BUN 11 mg/dL (7-18); Bilirubin, Total 0.6 mg/dL (0.2-1.0); CO2 22.7 mmol/L (21.0-32.0); CREATININE 0.99 mg/dL (0.55-1.02); Calcium 9.4 mg/dL (8.5-10.1); Chloride 106 mmol/L (98-107); Estimated GFR 59.62 (mL/min/1.73m2); Glucose 97 mg/dL (70-100); Lipase 342 U/L (73-393); NT-proBNP 64 pg/mL; Potassium 3.5 mmol/L (3.5-5.1); Sodium 141 mmol/L (136-145)
[2019-06-06 16:07] LABS: Troponin I < 0.05 ng/mL (0.00-0.06)
[2019-06-06 16:10] LABS: D-Dimer 683 ng/mlFEU (<500)
--- NOTE | 2019-06-06 16:38 | DI.VRAD_ITS ---
EXAM: XR Chest, 2 Views EXAM DATE/TIME: 06/06/2019 4:01 PM CLINICAL HISTORY: 49 years old, female; Other: Chest pain TECHNIQUE: Imaging protocol: XR of the chest, 2 views. COMPARISON: CR CHEST 2 VIEWS PA,LAT 01/13/2018 9:03 AM FINDINGS: The cardiomediastinal silhouette and pulmonary vasculature are within normal limits. The lungs are clear. No pleural effusion or pneumothorax is identified. There is widening of the right and left acromioclavicular joint spaces with resorptive changes within the distal aspects of both clavicles. This is either the sequelae of prior surgery or traumatic ostial lysis and is unchanged. IMPRESSION: No acute process. Dictated and Authenticated by: Cal Cartagena MD. Ordering:AARON Champion MD
--- NOTE | 2019-06-06 18:12 | DI.VRAD_ITS ---
EXAM: CT Angiography Chest With Contrast EXAM DATE/TIME: 06/06/2019 5:43 PM CLINICAL HISTORY: 49 years old, female; Other: Pleuritic chest pain with positive d-dimer; Patient HX: Chest pain, patient sts back surgery 1 month ago. TECHNIQUE: Imaging protocol: Axial computed tomographic angiography images of the chest with intravenous contrast using CT angiography protocol. Coronal and sagittal reformatted images were created and reviewed. 3D rendering: MIP reconstructed images were created and reviewed. Radiation optimization: All CT scans at this facility use at least one of these dose optimization techniques: automated exposure control; mA and/or kV adjustment per patient size (includes targeted exams where dose is matched to clinical indication); or iterative reconstruction. Contrast material: OMNIPAQUE 350; Contrast volume: 100 ml; Contrast route: IV; COMPARISON: CT CHEST FOR PULMONARY EMBOLUS 12/05/2016 5:29 PM FINDINGS: Pulmonary arteries: No pulmonary arterial embolus identified. Aorta: Unremarkable. No aortic aneurysm. No aortic dissection. Thyroid: Left thyroid lobe low-density nodules and calcifications, unchanged. Lungs: Dependent changes within the lung bases. Minimal air trapping versus emphysema within the posterior lower lobes bilaterally. No pulmonary consolidation. Pleural space: Unremarkable. No pneumothorax. No pleural effusion. Heart: Unremarkable. No cardiomegaly. No pericardial effusion. Lymph nodes: Unremarkable. No enlarged lymph nodes. Bones/joints: Minimal degenerative spondylosis of the thoracic spine. No fracture or suspicious bone lesion. Soft tissues: Unremarkable. IMPRESSION: No pulmonary arterial embolism or other acute abnormality. Dictated and Authenticated by: Cal Cartagena MD. Ordering:JAREK Navarro MD
[2019-06-06 18:27] LABS: Bilirubin Negative (Negative); Blood Trace-intact (Negative); Clarity Clear (Clear); Glucose Negative (Negative); Ketones Negative (Negative); Leukocyte Esterase Negative (Negative); Nitrite Negative (Negative); Specific Gravity <= 1.005 (1.005-1.025); Urobilinogen 0.2 EU/dL (Up TO 0.2)
[2019-06-06 18:29] LABS: Bacteria Negative HPF (Negative); C & S Indicated? No; Casts Negative LPF (Negative); Crystals Negative HPF (Negative); Epithelial Cells Rare HPF (Negative); Mucus Negative (Negative); Other Cells Negative (Negative); RBC 0-2 (0-2); WBC Negative HPF (0-5)
[2019-06-06 19:00] LABS: Troponin I < 0.05 ng/mL (0.00-0.06)
== END 2019-06-06 19:33 | disposition home or self-care (01) ==
PROVIDERS: Emergency Medicine; Emergency Provider Emergency Medicine; PCP Nurse Practitioner Family
DX: R07.9 Chest pain, unspecified (principal); F41.9 Anxiety disorder, unspecified; J44.9 Chronic obstructive pulmonary disease, unspecified; Z87.890 Personal history of sex reassignment
CPT/HCPCS: 36415; 71275; 80053; 83690; 93005; 99285; 71046; 81003; 81015; 83735; 83880; 84484; 85025; 85379; 85610; 85730; 93010

== ENCOUNTER 2019-06-09 21:09 | Observation (INO) | payer MEDICARE, MEDICAID, SELFPAY ==
[2019-06-09] VITALS (27 sets, daily range): BP systolic 106–126; BP diastolic 66–90; PULSE 76–92; RESP 9–24; TEMP 37; O2SAT 92–97
--- NOTE | 2019-06-09 21:51 | W.ED.GENAD ---
Discharge Plan Disposition Patient Disposition: [facility] INPATIENT Condition: Fair Discharge Details Chief Complaint: Dizzy/Sync Clinical Impression: Dizziness, Diplopia Primary Care Provider: Lucy Courtney ED Provider: Ramon Navarro Jessie Meds and New Rx's Prescriptions: No Action dihydroergotamine [Migranal] 1 ML spray,non-aerosol 1 ml NS PRN RF: 0 cetirizine [Zyrtec] 10 MG tablet 10 mg PO DAILY RF: 0 ondansetron HCl [Zofran] 4 MG tablet 4 mg PO PRN RF: 0 meclizine 12.5 MG tablet 12.5 mg PO BID RF: 0 polyethylene glycol 3350(bulk) 1 GM granules 17 gm PO DAILY PRNQty: 527 RF: 3 omeprazole 40 MG capsule,delayed release(DR/EC) 40 mg PO BID Qty: 60 RF: 3 acetaminophen 500 mg capsule 1,000 mg PO Q8H PRN (Reason: pain) Qty: 90 RF: 0 venlafaxine 75 MG tablet 225 mg PO DAILY RF: 0 topiramate 100 MG tablet 100 mg PO BID RF: 0 Atrovent HFA 1 PUFF HFA aerosol inhaler 1 puff Inhalation Q8H PRNRF: 0 albuterol sulfate [Proventil HFA] 200 PUFF HFA aerosol inhaler 2 puff Inhalation PRN PRNRF: 0 Narcan 4 MG spray,non-aerosol 4 mg NS PRN Qty: 2 RF: 0 nicotine 14 mg/24 hr Patch 24 Hour 1 patch TRANSDERMAL DAILY RF: 0 clonazepam 1 mg Tablet 1 mg PO TID PRNRF: 0 nicotine 21 mg/24 hr Patch 24 Hour 1 patch TRANSDERMAL DAILY RF: 0 nicotine 7 mg/24 hr Patch 24 Hour 1 patch TRANSDERMAL Q24H RF: 0 gabapentin 100 mg Capsule 100 mg PO DAILY RF: 0 ibuprofen 600 mg tablet 600 mg PO TID PRNQty: 90 RF: 3 hydromorphone 2 mg tablet 2 mg PO Q4H PRN (Reason: severe post-operative pain) Qty: 6 RF: 0 Medical Decision Making Given patient's complaints will need to be concerned for posterior circulation stroke. She is stating that this does not feel like her vertigo. She has a normal neurologic exam currently except for gait. She had difficulty walking in. However, she has no obvious ataxia, weakness, sensory deficit, visual change currently. I would score her a 0 on the NIH stroke scale. IV is in place. Will hang fluids and give some Zofran. Will get a noncontrast head CT followed by CTA of the head and neck. Laboratory studies sent. Will need admission for further work-up to include echo and MRI. 23:00 - Patient's vital signs remain normal. Neurologic exam unchanged. Laboratory studies unremarkable. Noncontrast CT head negative per radiology. 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 Otherwise brain CTA is normal. Neck CTA shows no vascular abnormalities. Does show her thyroid nodule which is been documented in the past. Patient will need admission for further evaluation of posterior circulation TIA symptoms. She should be monitored, have MRI of the brain, echo of the heart. Patient is aware of recommendation and agrees to admission. Case discussed with hospitalist. Patient accepted for admission. Medical Records Medical records reviewed: Yes I reviewed the patient's medical records. Lab Data Lab results reviewed: Yes I reviewed the patient's lab results. ECG Data Attestation: I personally reviewed and interpreted this ECG (s) as follows: Prior ECG tracings: available for review Interpretation: Normal sinus rhythm at 92. Normal axis and intervals. Normal ST segments, normal EKG. HPI General Mode of arrival: ambulatory. Date/Time Provider Initiated Documentation: 06/09/19 21:51. Limitations to Documentation: no limitations. Information obtained by: patient and old records reviewed. HPI Narrative: Patient presents to ED with complaint of dizziness, difficulty walking, double vision. Patient states symptoms started as she was driving home from [place] this afternoon around 5 PM. She noted that she was unable to stay in her adeel and crossed the yellow line multiple times. She had double vision on and off. She stopped at a friend's house and had difficulty ambulating when she got out of the car. She has nausea but no vomiting. She feels like her entire upper body including her head is heavy. She does not feel right at all. She continues to have difficulty ambulating, lightheaded/dizzy feeling. She has prior history of vertigo but states this in no way feels like her previous vertigo. She has a mild headache but nothing severe. She denies numbness. She denies speech difficulty. She is brought in this evening for evaluation as she continues to feel unwell although her visual complaints have resolved. Related Data Home Medications Medication Instructions Recorded Confirmed venlafaxine 225 mg PO DAILY 05/16/16 06/09/19 topiramate 100 mg PO BID 06/18/16 06/09/19 dihydroergotamine [Migranal] 1 ml NS PRN script 07/07/16 06/09/19 Atrovent HFA 1 puff INHALATION Q8H PRN 12/05/16 06/09/19 albuterol sulfate [Proventil HFA] 2 puff INHALATION PRN PRN 02/15/17 06/09/19 Narcan 4 mg NS PRN #2 spray 09/27/17 06/09/19 cetirizine [Zyrtec] 10 mg PO DAILY tab-cap 01/31/18 06/09/19 meclizine 12.5 mg PO BID 01/31/18 06/09/19 ondansetron HCl [Zofran] 4 mg PO PRN 01/31/18 06/09/19 polyethylene glycol 3350(bulk) 17 gm PO DAILY PRN #527 gm 01/31/18 06/09/19 omeprazole 40 mg PO BID #60 tab-cap 03/31/18 06/09/19 clonazepam 1 mg PO TID PRN 11/29/18 06/09/19 gabapentin 100 mg PO DAILY 11/29/18 06/09/19 nicotine 1 patch TRANSDERMAL DAILY 11/29/18 06/09/19 nicotine 1 patch TRANSDERMAL DAILY 11/29/18 06/09/19 nicotine 1 patch TRANSDERMAL Q24H 11/29/18 06/09/19 ibuprofen 600 mg PO TID PRN #90 tab 11/30/18 06/09/19 acetaminophen 500 mg capsule 1,000 mg PO Q8H PRN #90 cap 01/26/19 06/09/19 hydromorphone 2 mg PO Q4H PRN #6 tab 05/17/19 06/09/19 Previous Rx's Medication Instructions Recorded Narcan 4 mg NS PRN #2 spray 09/27/17 omeprazole 40 mg PO BID #60 tab-cap 03/31/18 ibuprofen 600 mg PO TID PRN #90 tab 11/30/18 acetaminophen 500 mg capsule 1,000 mg PO Q8H PRN #90 cap 01/26/19 hydromorphone 2 mg PO Q4H PRN #6 tab 05/17/19 Allergies Allergy/AdvReac Type Severity Reaction Status Date / Time adhesive Allergy Intermediate gets red Verified 06/09/19 21:39 and welts up codeine Allergy Intermediate Itching Unverified 06/09/19 21:39 oxycodone HCl [From Percocet] Allergy Intermediate Anaphylaxsi Unverified 06/09/19 21:39 s morphine Allergy Itching Verified 06/09/19 21:39 General Stated Complaint: Dizzy/Sync CRISTI: 3 Review of Systems Review of Systems 09/10 Review of Systems completed and is negative except as stated above in HPI (Systems reviewed: Const, Eyes, ENT, Resp, CV, GI, , MSK, Skin, Neuro) PFSH Medical History Anxiety Asthma Chronic pain Cigarette smoker Depression Dysphagia Family history of colon cancer GERD (gastroesophageal reflux disease) Hyperthyroidism Intertrigo Migraine Obese Obstructive sleep apnea Postmenopausal bleeding PTSD (post-traumatic stress disorder) Syncope Thyroid nodule Vertigo Surgical History Colonoscopy - MAC (02/14/18) EGD - MAC (02/14/18) Replacement of total knee joint Rotator Cuff Repair Family History Father Rheumatoid arthritis Brother Rheumatoid arthritis Social History Smoking/Tobacco Use Status: Current every day Tobacco Type: cigarettes Tobacco: How many years used: 25 Alcohol Intake: current Alcohol Intake frequency: holidays/special occasions only Alcohol type: wine Drug use: Occasionally Substance use type: marijuana Details: marijuana couple days since I smoked Do you feel safe at home: Yes Additional Social history: no relationship, thats done Exam Narrative Exam Narrative: Vitals: Afebrile with normal vital signs. Const: Obese female in NAD. HEENT: NC/AT. Normal facial exam. Eyes: Normal conjunctiva and sclera. PERRL and EOMI with normal visual alexander. No double vision. Neck: Supple. Trachea midline. Lungs: Normal respiratory effort. Lungs are clear. Cor: RRR without murmur/gallop. Good radial pulses. GI: Soft. NT/ND. No guarding or rebound. Neuro: A + O x3; CN II - XII in tact. Speech is normal. Cognition is normal. She had difficulty walking in and had to have assistance. She has 5/5 strength. Sensation is normal. FTN is normal. Ext: No C/C/E. No deformity or tenderness. Skin: Warm and dry without rash. Course Vital Signs Temperature 98.6 F 06/09/19 21:16 Pulse 91 H 06/09/19 21:16 Respiratory Rate 19 06/09/19 21:16 Blood Pressure 122/86 06/09/19 21:16 Pulse Oximetry 96 06/09/19 21:16 Temperature 98.6 F 06/09/19 21:16 Temperature Source Temporal Artery Scan 06/09/19 21:16 Pulse 91 H 06/09/19 21:16 Respiratory Rate 14 06/09/19 21:34 Respiratory Effort 06/09/19 21:34 Respiratory Depth Normal 06/09/19 21:34 Respiratory Pattern Normal 06/09/19 21:34 Blood Pressure 122/86 06/09/19 21:16 Pulse Oximetry 96 06/09/19 21:16 Oxygen Delivery Method Room Air 06/09/19 21:16 Oxygen Flow Rate 0 06/09/19 21:16 Pain Level 5 06/09/19 21:16
--- NOTE | 2019-06-09 22:06 | DI.CT_ITS ---
SYMPTOM/DIAGNOSIS: DOUBLE VISION, DIZZY CTA HEAD AND NECK: CT angiography was performed with multi slice acquisition and multi planar and 3D reconstruction. NECK: There is patient motion artifact present. The common carotid arteries are unremarkable without evidence of dissection, occlusion or significant stenosis. The internal carotid arteries are unremarkable without evidence of occlusion, dissection or significant stenosis. The external carotid arteries are unremarkable without evidence of occlusion or significant stenosis. The vertebral arteries are unremarkable without evidence of dissection, occlusion or significant stenosis. There is patient motion artifact present. There is a 2.5 by 2.4 cm. hypodense nodule in the lower pole of the left lobe of the thyroid gland. It does contain some calcifications. IMPRESSION: 1. No significant stenosis or aneurysm. No evidence of acute dissection involving the cervical arteries. 2. 2.5 cm. heterogeneous left thyroid nodule. Thyroid ultrasound may be considered for further evaluation. HEAD: Routine examination was performed. There is a question of a medially oriented, 2 mm. aneurysm involving the supraclinoid segment of the right internal carotid artery. The left internal carotid artery is unremarkable without aneurysm, occlusion or significant stenosis. The anterior cerebral arteries are unremarkable without evidence of occlusion, aneurysm or significant stenosis. The middle cerebral arteries are unremarkable without evidence of occlusion, aneurysm or significant stenosis. The posterior cerebral arteries are unremarkable without evidence of occlusion or significant stenosis. No aneurysm is present. The basilar artery is unremarkable without evidence of occlusion, aneurysm or significant stenosis. IMPRESSION: 1. No evidence of significant stenosis or dissection. 2. Question of a 2 mm., medially oriented aneurysm arising from the supraclinoid segment of the right internal carotid artery. NONCONTRAST HEAD CT: A noncontrast CT scan of the brain was performed. There is normal langston white matter differentiation. No intracranial hemorrhage, midline shift or mass effect is identified. The ventricles are intact. The basilar cisterns are patent. The visualized paranasal sinuses are clear as are the mastoid air cells The calvarium is intact. IMPRESSION: No acute intracranial process.
[2019-06-09 22:19] LABS: Abs Immature Grans 0.01 k/cumm (0.0-0.09); Absolute Basophil Count 0.01 k/cumm (0.0-0.2); Absolute Lymphocyte Count 3.68 k/cumm (1.2-3.4); Absolute Neutrophil Count 4.58 k/cumm (1.2-6.7); Basophils % 0.1; HCT 41.8 % (36.0-46.0); HGB 13.6 g/dL (12.0-15.5); Immature Grans % 0.1; Mean Corp. HGB Concentration 32.5 g/dL (32.0-36.0); Mean Corpuscular Hemoglobin 29.4 pg (27.0-33.0); Mean Corpuscular Volume 90.3 fL (80-95); Mean Platelet Volume 10.2 fL (8.0-11.0); Monocytes % 7.8; Platelet Count 275 x1000/uL (130-400); RBC 4.63 m/cumm (4.00-5.20); RBC Distribution Width 14.5 % (11.7-14.6); White Blood Cell Count 8.98 k/cumm (4.4-10.8)
[2019-06-09] MEDS: Ondansetron 4 MG/2 ML VIAL IVP (22:32)
[2019-06-09 22:33] LABS: ALT 23 U/L (12-78); AST 12 U/L (15-37); Albumin 3.4 g/dL (3.4-5.0); Alkaline Phosphatase 90 U/L (46-116); Anion Gap 10.4 mmol/L (3-11); BUN 12 mg/dL (7-18); Bilirubin, Total 0.4 mg/dL (0.2-1.0); CO2 24.6 mmol/L (21.0-32.0); CREATININE 0.85 mg/dL (0.55-1.02); Calcium 8.9 mg/dL (8.5-10.1); Chloride 106 mmol/L (98-107); Glucose 94 mg/dL (70-100); Magnesium 1.9 mg/dL (1.8-2.4); Potassium 3.5 mmol/L (3.5-5.1); Sodium 141 mmol/L (136-145); Total Protein 7.3 g/dL (6.4-8.2)
[2019-06-09] MEDS: Normal Saline 1,000 ML 150 ML IV (22:33)
[2019-06-09] MEDS: Normal Saline Flush 10 ML SYR IVP (22:33)
[2019-06-09] MEDS: Omnipaque 350 MG/ML 100 ML BTL IJ (22:36)
[2019-06-09 22:42] LABS: Troponin I < 0.05 ng/mL (0.00-0.06)
--- NOTE | 2019-06-09 23:01 | DI.VRAD_ITS ---
EXAM: CT Angiography Head Without And With Contrast EXAM DATE/TIME: 06/09/2019 10:08 PM CLINICAL HISTORY: 49 years old, female; Dizziness and giddiness and visual disturbance; Other visual defect; Patient HX: Double vision, dizzy TECHNIQUE: Imaging protocol: Axial computed tomographic angiography images of the head without and with intravenous contrast using CT angiography protocol. Coronal and sagittal reformatted images were created and reviewed. 3D rendering: MIP reconstructed images were created and reviewed. Other technique: STROKE PROTOCOL was implemented. COMPARISON: CT HEAD WITHOUT CONTRAST 04/14/2014 1:08 PM FINDINGS: Right internal carotid artery: 2 mm medially directed aneurysm arising from the supraclinoid segment the right internal carotid artery (6:445). Right anterior cerebral artery: Unremarkable. No occlusion or significant stenosis. No aneurysm. Right middle cerebral artery: Unremarkable. No occlusion or significant stenosis. No aneurysm. Right posterior cerebral artery: Unremarkable. No occlusion or significant stenosis. No aneurysm. Right vertebral artery: Unremarkable. No occlusion or significant stenosis. No aneurysm. Left internal carotid artery: Unremarkable. Intracranial segment is patent with no significant stenosis. No aneurysm. Left anterior cerebral artery: Unremarkable. No occlusion or significant stenosis. No aneurysm. Left middle cerebral artery: Unremarkable. No occlusion or significant stenosis. No aneurysm. Left posterior cerebral artery: Unremarkable. No occlusion or significant stenosis. No aneurysm. Left vertebral artery: Unremarkable. No occlusion or significant stenosis. No aneurysm. Basilar artery: Unremarkable. No occlusion or significant stenosis. No aneurysm. HEAD: Brain: No evidence for acute transcortical infarct. No mass effect or midline shift. No extra-axial collection. No acute intracranial hemorrhage. Basal cisterns are patent. Ventricles: Normal. No ventriculomegaly. Bones/joints: Unremarkable. No acute fracture. Sinuses: Visualized sinuses are normal. No fluid levels. Mastoid air cells: Visualized mastoids are normal. No mastoid effusion. Soft tissues: Unremarkable. IMPRESSION: No significant stenosis. 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 No evidence for acute transcortical infarct, acute intracranial hemorrhage, or mass effect. [place] Stroke Program Early CT Score (ASPECTS) = 10 The findings were verbally communicated via telephone conference with GRETTA HOANG at 10:55 PM EDT on 06/09/2019. The findings were acknowledged and understood. EXAM: CT Angiography Neck With Contrast EXAM DATE/TIME: 06/09/2019 10:08 PM CLINICAL HISTORY: 49 years old, female; Dizziness and giddiness and visual disturbance; Other visual defect; Patient HX: Double vision, dizzy TECHNIQUE: Imaging protocol: Axial computed tomographic angiography images of the neck with intravenous contrast using CT angiography protocol. Coronal and sagittal reformatted images were created and reviewed. 3D rendering: MIP reconstructed images were created and reviewed. COMPARISON: CT HEAD WITHOUT CONTRAST 04/14/2014 1:08 PM FINDINGS: VASCULATURE: Right common carotid artery: Unremarkable. No stenosis. No dissection or occlusion. Right internal carotid artery: Unremarkable extracranial segment. No stenosis. No dissection or occlusion. Right external carotid artery: Unremarkable. No occlusion or stenosis of the origin. Right vertebral artery: Unremarkable. No stenosis. No dissection or occlusion. Left common carotid artery: Unremarkable. No stenosis. No dissection or occlusion. Left internal carotid artery: Unremarkable extracranial segment. No stenosis. No dissection or occlusion. Left external carotid artery: Unremarkable. No occlusion or stenosis of the origin. Left vertebral artery: Unremarkable. No stenosis. No dissection or occlusion. NECK: Thyroid: Exophytic heterogeneous 2.5 x 2.4 cm nodule containing coarse calcifications arising from the inferior pole of the left thyroid gland. Bones/joints: No acute fracture. Soft tissues: Normal. No significant soft tissue swelling. IMPRESSION: 1. No significant stenosis or aneurysm. No evidence of acute dissection. 2. Exophytic heterogeneous 2.5 x 2.4 cm nodule containing coarse calcifications arising from the inferior pole of the left thyroid gland. Recommend further evaluation with ultrasound. The findings were verbally communicated via telephone conference with GRETTA HOANG at 10:55 PM EDT on 06/09/2019. The findings were acknowledged and understood. COMMENT: Reference per NASCET criteria for degree of stenosis: Mild: less than 50% stenosis. Moderate: 50-69% stenosis. Severe: 70-94% stenosis. Near occlusion: 95-99% stenosis. Dictated and Authenticated by: Petros Owens MD. Ordering:JAREK Navarro MD
--- NOTE | 2019-06-09 23:52 | W.PM.HP.N ---
Date of service: 06/09/19 Time of Service: 23:52 Assessment and Plan (1) TIA (transient ischemic attack): Start date: 06/09/19 Current visit: Yes Status: Acute This is a 49-year-old lady with chronic migraine headaches who had an event which appeared to be posterior circulation with diplopia and vertiginous type symptoms worsened from her baseline. The slowly resolved and she did receive aspirin in the ED which will be continued. The patient states she does take a baby aspirin daily though this is not on her medication list. She is a smoker and has risk for advancing atherosclerotic vessel disease. Her migraine headaches have not been changing and she has never had these symptoms with her migraines in the past. She has had slight photophobia. Further evaluation with MRI and echocardiogram will be ordered though this may not be able to be accomplished during an observation status. If she improves she could go home with further outpatient evaluation. She does see a neurologist at [facility]. (2) Diplopia: Start date: 06/09/19 Current visit: Yes Status: Acute This has resolved and will be observed for now with eye exam as an outpatient with her patient intake coordinator or search and rescue officer would be appropriate. (3) Vertigo: Start date: 06/09/19 Current visit: Yes Status: Chronic Patient reports lightheadedness with this event rather than her true vertigo but she is on meclizine which will be continued. I will increase this today 3 times a day as needed dosing rather than twice a day. (4) Thyroid nodule: Start date: 06/09/19 Current visit: Yes Status: Acute This was a coincidental finding on CT scan and needs outpatient follow-up. To the left lobe, inferior pole and it is above 1 cm in diameter at 2.5 x 2.4 cm measurement. History of Present Illness Chief Complaint: Acute onset lightheadedness with discoordination, diplopia and weakness Narrative: This is a 49-year-old lady with chronic migraine headaches for which she takes Migranal when they are severe and recent headache since mid week. She was driving home from [place] and began to see double with objects being [id number] along with lightheadedness and discoordination starting to wander over the centerline of the road. She stated that she felt as if she was drunk but does not drink alcohol. She is not on narcotics at this point status post left knee arthroscopic at the end of April. Other than her recent headache she was feeling at baseline prior to this event. She drove to a friend's house and they drove her to the hospital for evaluation. In the ED she was continuing to feel total body weakness but her diplopia had resolved and her headache was unchanged. She continues to feel lightheaded. She is on IV hydration and she has no focal neurological findings on exam in the ED. CT scan was unrevealing. She will be observed overnight on telemetry with and reevaluation with MRI of the brain and possibly an echocardiogram if available. Review of Systems Review of Systems 13 point review of systems otherwise unrevealing or stable and as per HPI. [facility] Medical History Anxiety Asthma Chronic pain Cigarette smoker Depression Dysphagia Family history of colon cancer GERD (gastroesophageal reflux disease) Hyperthyroidism Intertrigo Migraine Obese Obstructive sleep apnea Postmenopausal bleeding PTSD (post-traumatic stress disorder) Syncope Thyroid nodule Vertigo Surgical History Colonoscopy - MAC (02/14/18) EGD - MAC (02/14/18) Replacement of total knee joint Rotator Cuff Repair Family History Father Rheumatoid arthritis Brother Rheumatoid arthritis Social History Smoking/Tobacco Use Status: Current every day Tobacco Type: cigarettes Tobacco: How many years used: 25 Alcohol Intake: current Alcohol Intake frequency: holidays/special occasions only Alcohol type: wine Drug use: Occasionally Substance use type: marijuana Details: marijuana couple days since I smoked Do you feel safe at home: Yes Additional Social history: no relationship, thats done Meds Home Medications Medication Instructions Recorded Confirmed Type venlafaxine 225 mg PO DAILY 05/16/16 06/09/19 History topiramate 100 mg PO BID 06/18/16 06/09/19 History dihydroergotamine [Migranal] 1 ml NS PRN script 07/07/16 06/09/19 History Atrovent HFA 1 puff INHALATION Q8H PRN 12/05/16 06/09/19 History albuterol sulfate [Proventil HFA] 2 puff INHALATION PRN PRN 02/15/17 06/09/19 History Narcan 4 mg NS PRN #2 spray 09/27/17 06/09/19 Rx cetirizine [Zyrtec] 10 mg PO DAILY tab-cap 01/31/18 06/09/19 History meclizine 12.5 mg PO BID 01/31/18 06/09/19 History ondansetron HCl [Zofran] 4 mg PO PRN 01/31/18 06/09/19 History polyethylene glycol 3350(bulk) 17 gm PO DAILY PRN #527 gm 01/31/18 06/09/19 History omeprazole 40 mg PO BID #60 tab-cap 03/31/18 06/09/19 Rx clonazepam 1 mg PO TID PRN 11/29/18 06/09/19 History gabapentin 100 mg PO DAILY 11/29/18 06/09/19 History nicotine 1 patch TRANSDERMAL DAILY 11/29/18 06/09/19 History nicotine 1 patch TRANSDERMAL DAILY 11/29/18 06/09/19 History nicotine 1 patch TRANSDERMAL Q24H 11/29/18 06/09/19 History ibuprofen 600 mg PO TID PRN #90 tab 11/30/18 06/09/19 Rx acetaminophen 500 mg capsule 1,000 mg PO Q8H PRN #90 cap 01/26/19 06/09/19 Rx hydromorphone 2 mg PO Q4H PRN #6 tab 05/17/19 06/09/19 Rx Allergies Allergy/AdvReac Type Severity Reaction Status Date / Time adhesive Allergy Intermediate gets red Verified 06/09/19 21:39 and welts up codeine Allergy Intermediate Itching Unverified 06/09/19 21:39 oxycodone HCl [From Percocet] Allergy Intermediate Anaphylaxsi Unverified 06/09/19 21:39 s morphine Allergy Itching Verified 06/09/19 21:39 Exam Narrative Exam Narrative: General: Patient appears appropriate for age and is attended by her son who is her manager telemetry. She is alert and oriented x3. She appears no distress but has a flattened affect with poor eye contact. HEENT: Normocephalic with eyes revealing pupils equal and reactive to light symmetrically and extraocular movement intact. Sclera anicteric. Oropharynx with slightly dry oral mucosa. Neck: Without JVD and supple. No auscultated bruits. Lungs: Bronchovesicular breath sounds diffusely with inspiratory and expiratory rhonchi but no focalizing rales and no expiratory wheeze (the patient continues to smoke tobacco daily). Heart: Regular rate and rhythm with no murmurs gallops appreciated. Breast: Exam deferred. Back: Stooped posture with no CVA tenderness. Abdomen: Obese contour and slightly protuberant but soft without localizing tenderness. No palpable hepatomegaly. Bowel sounds positive all quadrants. Genitalia/Rectal: Exam deferred. Extremities: Without clubbing cyanosis or pitting edema. Right knee has a well-healed scar from a total knee arthroplasty and left knee has well-healed puncture wounds from recent arthroscopy. Skin: Warm and dry with no rashes. Neuro: Cranial nerves II through XII grossly intact without nystagmus, no focalizing motor deficits and reflexes symmetric and physiologic bilaterally. No Babinski's. Sensation grossly intact. Psych: Flattened affect with slight depressed mood and anxious, remote and recent memory appears intact. Results Imaging Imaging Studies: Exam(s) a CT:CT chest PE CTA a RAD:XR chest 2V PA & lateral SYMPTOM/DIAGNOSIS: CHEST PAIN, + D DIMER PE CHEST CT: CT angiography was performed with multi slice acquisition and multi planar and 3D reconstruction. Routine examination was performed. Comparison examination is 12/05/16. There are again seen left thyroid nodules. These appear stable. The thoracic aorta is of normal caliber. No evidence of aneurysm or dissection. No evidence of a pulmonary embolus is present. The heart size is within normal limits. No significant pericardial effusion is seen. No findings to suggest right ventricular dysfunction are present. No evidence of thoracic adenopathy, pleural effusion or pneumothorax is identified. No focal consolidating infiltrate is present. Dependent atelectatic changes are seen in the lung bases. The tracheobronchial tree is unremarkable. Upper abdominal images show no acute abnormality. Degenerative changes are seen in the spine. IMPRESSION: No evidence of a pulmonary embolus, thoracic aortic dissection or aneurysm. PA AND LATERAL CHEST: Comparison is made with 01/13/18. Heart size and pulmonary vasculature are within normal limits. The lungs are clear and well expanded. No effusions or pneumothoraces are identified. Degenerative changes are seen in the spine. Stable resorptive changes seen at the distal ends of both clavicles are unchanged. IMPRESSION: No acute pulmonary process. Dictated By: Ramon Arredondo M.D. 06/07/19 0855 Exam(s) EXAM: CT Angiography Head Without And With Contrast EXAM DATE/TIME: 06/09/2019 10:08 PM CLINICAL HISTORY: 49 years old, female; Dizziness and giddiness and visual disturbance; Other visual defect; Patient HX: Double vision, dizzy TECHNIQUE: Imaging protocol: Axial computed tomographic angiography images of the head without and with intravenous contrast using CT angiography protocol. Coronal and sagittal reformatted images were created and reviewed. 3D rendering: MIP reconstructed images were created and reviewed. Other technique: STROKE PROTOCOL was implemented. COMPARISON: CT HEAD WITHOUT CONTRAST 04/14/2014 1:08 PM FINDINGS: Right internal carotid artery: 2 mm medially directed aneurysm arising from the supraclinoid segment the right internal carotid artery (6:445). Right anterior cerebral artery: Unremarkable. No occlusion or significant stenosis. No aneurysm. Right middle cerebral artery: Unremarkable. No occlusion or significant stenosis. No aneurysm. Right posterior cerebral artery: Unremarkable. No occlusion or significant stenosis. No aneurysm. Right vertebral artery: Unremarkable. No occlusion or significant stenosis. No aneurysm. Left internal carotid artery: Unremarkable. Intracranial segment is patent with no significant stenosis. No aneurysm. Left anterior cerebral artery: Unremarkable. No occlusion or significant stenosis. No aneurysm. Left middle cerebral artery: Unremarkable. No occlusion or significant stenosis. No aneurysm. Left posterior cerebral artery: Unremarkable. No occlusion or significant stenosis. No aneurysm. Left vertebral artery: Unremarkable. No occlusion or significant stenosis. No aneurysm. Basilar artery: Unremarkable. No occlusion or significant stenosis. No aneurysm. HEAD: Brain: No evidence for acute transcortical infarct. No mass effect or midline shift. No extra-axial collection. No acute intracranial hemorrhage. Basal cisterns are patent. Ventricles: Normal. No ventriculomegaly. Bones/joints: Unremarkable. No acute fracture. Sinuses: Visualized sinuses are normal. No fluid levels. Mastoid air cells: Visualized mastoids are normal. No mastoid effusion. Soft tissues: Unremarkable. IMPRESSION: No significant stenosis. 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 No evidence for acute transcortical infarct, acute intracranial hemorrhage, or mass effect. [place] Stroke Program Early CT Score (ASPECTS) = 10 The findings were verbally communicated via telephone conference with RAMON HOANG at 10:55 PM EDT on 06/09/2019. The findings were acknowledged and understood. EXAM: CT Angiography Neck With Contrast EXAM DATE/TIME: 06/09/2019 10:08 PM CLINICAL HISTORY: 49 years old, female; Dizziness and giddiness and visual disturbance; Other visual defect; Patient HX: Double vision, dizzy TECHNIQUE: Imaging protocol: Axial computed tomographic angiography images of the neck with intravenous contrast using CT angiography protocol. Coronal and sagittal reformatted images were created and reviewed. 3D rendering: MIP reconstructed images were created and reviewed. COMPARISON: CT HEAD WITHOUT CONTRAST 04/14/2014 1:08 PM FINDINGS: VASCULATURE: Right common carotid artery: Unremarkable. No stenosis. No dissection or occlusion. Right internal carotid artery: Unremarkable extracranial segment. No stenosis. No dissection or occlusion. Right external carotid artery: Unremarkable. No occlusion or stenosis of the origin. Right vertebral artery: Unremarkable. No stenosis. No dissection or occlusion. Left common carotid artery: Unremarkable. No stenosis. No dissection or occlusion. Left internal carotid artery: Unremarkable extracranial segment. No stenosis. No dissection or occlusion. Left external carotid artery: Unremarkable. No occlusion or stenosis of the origin. Left vertebral artery: Unremarkable. No stenosis. No dissection or occlusion. NECK: Thyroid: Exophytic heterogeneous 2.5 x 2.4 cm nodule containing coarse calcifications arising from the inferior pole of the left thyroid gland. Bones/joints: No acute fracture. Soft tissues: Normal. No significant soft tissue swelling. IMPRESSION: 1. No significant stenosis or aneurysm. No evidence of acute dissection. 2. Exophytic heterogeneous 2.5 x 2.4 cm nodule containing coarse calcifications arising from the inferior pole of the left thyroid gland. Recommend further evaluation with ultrasound. The findings were verbally communicated via telephone conference with RAMON HOANG at 10:55 PM EDT on 06/09/2019. The findings were acknowledged and understood. COMMENT: Reference per NASCET criteria for degree of stenosis: Mild: less than 50% stenosis. Moderate: 50-69% stenosis. Severe: 70-94% stenosis. Near occlusion: 95-99% stenosis. Dictated and Authenticated by: Petros Owens MD. Labs : 06/09/19 21:55 06/09/19 21:55 Laboratory Results - last 24 hr 06/09/19 06/09/19 21:55 21:55 WBC 8.98 RBC 4.63 Hgb 13.6 Hct 41.8 MCV 90.3 MCH 29.4 MCHC 32.5 RDW 14.5 Plt Count 275 MPV 10.2 Immature Gran % 0.1 Neutrophils % 51.0 Lymphocytes % 41.0 Monocytes % 7.8 Eosinophils % 0.0 Basophils % 0.1 Absolute Neutrophils 4.58 Absolute Lymphocytes 3.68 H Absolute Monocytes 0.70 Absolute Eosinophils 0.00 Absolute Basophils 0.01 Sodium 141 Potassium 3.5 Chloride 106 Carbon Dioxide 24.6 Anion Gap 10.4 BUN 12 Creatinine 0.85 Estimated GFR/1.73 m2 >= 60.00 Glucose 94 Calcium 8.9 Magnesium 1.9 Total Bilirubin 0.4 AST 12 L ALT 23 Alkaline Phosphatase 90 Troponin I < 0.05 Total Protein 7.3 Albumin 3.4 Last Vital Signs Temp 37.0 C 06/09/19 21:16 Pulse 91 H 06/09/19 21:16 Resp 14 06/09/19 21:34 BP 122/86 06/09/19 21:16 Pulse Ox 96 06/09/19 21:16
[2019-06-10] VITALS (89 sets, daily range): BP systolic 103–127; BP diastolic 58–83; PULSE 62–89; RESP 11–23; TEMP 35.8–36.9; O2SAT 91–97
[2019-06-10] MEDS: Aspirin 81 MG CHEW 324 MG CH (00:07)
[2019-06-10] MEDS: Normal Saline 1,000 ML 150 ML IV ×3 (05:50→19:12)
[2019-06-10] MEDS: Heparin 5,000 UNITS/ML VIAL 5000 UNITS SC ×3 (05:52→21:14)
[2019-06-10 07:39] LABS: HCT 41.1 % (36.0-46.0); HGB 13.1 g/dL (12.0-15.5); Mean Corp. HGB Concentration 31.9 g/dL (32.0-36.0); Mean Corpuscular Hemoglobin 29.2 pg (27.0-33.0); Mean Corpuscular Volume 91.5 fL (80-95); Mean Platelet Volume 10.4 fL (8.0-11.0); Platelet Count 260 x1000/uL (130-400); RBC 4.49 m/cumm (4.00-5.20); RBC Distribution Width 14.5 % (11.7-14.6); White Blood Cell Count 6.98 k/cumm (4.4-10.8)
--- NOTE | 2019-06-10 08:03 | PDOC.CMIN ---
Care Management Initial Assess REASON FOR HOSPITALIZATION:: TIA, Vertigo, Diplopia PAST MEDICAL HISTORY/PAST SURGICAL HISTORY:: Anxiety, Asthma, Chronic Pain, cigarette smoker, depression, dysphagia, GERD, hyperthyroidism, intertrigo, migraines, obesity, ROLANDA no CPAP, postmenopausal bleeding PTSD, Syncope, vertigo, colonoscopy, EGD, R TKA, rotator cuff repair, TIA, diplopia, nontoxic single thryoid nodule PREVIOUS FUNCTIONAL STATUS/SOCIAL/FAMILY SUPPORTS:: Dinesh resides in [place], [place]. Her daughter Loni and son Alexandr also reside in [place]. CURRENT FUNCTIONAL STATUS:: Dinesh was sleeping, her son at her bedside. Per MD, she was agreeable to nicotene patch. ADVANCE DIRECTIVES:: None on file at [facility] Has patient been provided with information about the portal?: Yes Did the patient sign up for the portal?: No CODE STATUS:: Full Code INSURANCE COVERAGE / FINANCIAL ISSUES:: [facility]OY[facility] CURRENT HOME/COMMUNITY SERVICES/EQUIPMENT:: [facility] [place]. [employer] PRIMARY CARE PHYSICIAN:: Lucy Courtney POTENTIAL DISCHARGE NEEDS:: Follow up appointments, continued work-up of symptomology including telemetery, Neuro consult, MRI/MRA of brain and ECHO tomorrow. PATIENT/FAMILY EDUCATION NEEDS:: Review of discharge instructions, discuss Ask Me Three. ANTICIPATED BARRIERS TO DISCHARGE:: None identified. TRANSPORTATION:: Via private vehicle with family. PLAN:: Dinesh will continue to be monitored and evaluated. CM will continue to follow and support discharge planning considerations. Anticipate Dinesh will return home with outpatient follow up plan and transport via private vehicle with family.
[2019-06-10 08:08] LABS: ALT 22 U/L (12-78); AST 13 U/L (15-37); Albumin 2.9 g/dL (3.4-5.0); Alkaline Phosphatase 82 U/L (46-116); Anion Gap 10.7 mmol/L (3-11); BUN 11 mg/dL (7-18); Bilirubin, Total 0.4 mg/dL (0.2-1.0); CO2 24.3 mmol/L (21.0-32.0); CREATININE 0.77 mg/dL (0.55-1.02); Calcium 8.5 mg/dL (8.5-10.1); Chloride 108 mmol/L (98-107); Glucose 103 mg/dL (70-100); Potassium 3.5 mmol/L (3.5-5.1); Sodium 143 mmol/L (136-145); Total Protein 6.5 g/dL (6.4-8.2)
--- NOTE | 2019-06-10 08:25 | W.PM.PROGNOT ---
Date of Service Date of service: 06/10/19 Time of Service: 08:25 Assessment and Plan (1) Transient neurologic deficit: Current visit: Yes Status: Acute TIA vs atypical migraine. Planned for MRI/MRA of brain and echo tomorrow. Neurology consulted. Continue to monitor on tele. Checking lipids. Continue asa. Patient was discouraged from leaving AMA. (2) Right internal carotid artery aneurysm: Current visit: Yes Status: Acute 2 mm, No evidence of rupture, per CTA - official read is not yet available. MRA is ordered. Will discuss with neurology. This will likely have to be followed up as outpatient. Checking lipids. Continue asa. Needs to stop smoking. (3) Chest pain: Current visit: Yes Status: Acute EKG negative. Monitor on tele. Trend troponins. (4) Tobacco abuse: Current visit: Yes Status: Acute Advised to quit. Rx nicotine patch (5) DVT prophylaxis: Current visit: Yes Status: Acute Heparin SC + TEDS/SCD's (6) Discharge planning issues: Current visit: Yes Status: Acute Full code Possible discharge home tomorrow Subjective Interval history since last seen: The patient complains of chest pain, which is all over her chest. It feels like it was inside, not in her ribs. She is vague about describing it any more than that. Her family thinks it's anxiety. The patient verbalizes that she needs to smoke a ____ cigarette. She states that the nicotrol inhaler is not working; smokes 1 ppd. Agrees to wear a patch. She is not happy about having to stay in the hospital another night. She denies dizziness, but her daughter states she was dizzy when she got up to the bathroom. Complains of headache (L-sided/frontal). Denies shortness of breath and nausea. Exam Narrative Exam Narrative: General: obese female, initially asleep, easily arousable, rude in her responses, using curse words, appears mildly anxious HEENT: EOMI, MMM Heart: RRR, no m/r/g Lungs: CTAB GI: abdomen is soft, nontender, nondistended Extremities: RLE with a difficult to palpate pedal pulse; LLE with 2+ pedal pulse Objective Objective Clinical Data: Abnormal lab results 06/09/19 06/09/19 06/10/19 Range/Units 21:55 21:55 06:45 MCHC (32.0-36.0) g/dL Absolute Lymphocytes 3.68 H (1.2-3.4) k/cumm Chloride 108 H (98-107) mmol/L Glucose 103 H (70-100) mg/dL AST 12 L 13 L (15-37) U/L Albumin 2.9 L (3.4-5.0) g/dL 06/10/19 Range/Units 06:45 MCHC 31.9 L (32.0-36.0) g/dL Absolute Lymphocytes (1.2-3.4) k/cumm Chloride (98-107) mmol/L Glucose (70-100) mg/dL AST (15-37) U/L Albumin (3.4-5.0) g/dL Vital Signs Temperature 36.3 C L 06/10/19 04:00 Temperature Source Temporal Artery Scan 06/10/19 04:00 Pulse 73 06/10/19 04:00 Pulse 75 06/10/19 04:45 Respiratory Rate 13 06/10/19 04:45 Respiratory Effort Non-Labored 06/10/19 04:00 Respiratory Depth Normal 06/10/19 04:00 Respiratory Pattern Normal 06/10/19 04:00 Blood Pressure 107/80 06/10/19 04:00 Blood Pressure Mean 74 06/10/19 03:00 Blood Pressure Position Supine 06/10/19 00:25 Pulse Oximetry 95 06/10/19 04:45 Oxygen Delivery Method Room Air 06/10/19 04:00 Oxygen Flow Rate 0 06/10/19 04:00 Pain Level 2 06/10/19 04:00 Intake & Output 06/09/19 06/09/19 06/10/19 11:59 23:59 11:59 Intake Total 1000 / 1000 Output Total 350 / 350 Balance 650 / 650 Weight 114.8 kg 118 kg Intake: IV 1000 / 1000 Output: Urine 350 / 350 Other: Urine Color Light Juanita Urine Appearance Clear Urine Odor None Comment Pt to BSC to void 350cc clear dark urine dipped, PH 7, SG 1.020 Voiding Methods Bedside Commode Laboratory Results WBC 6.98 k/cumm (4.4-10.8) 06/10/19 06:45 RBC 4.49 m/cumm (4.00-5.20) 06/10/19 06:45 Hgb 13.1 g/dL (12.0-15.5) 06/10/19 06:45 Hct 41.1 % (36.0-46.0) 06/10/19 06:45 MCV 91.5 fL (80-95) 06/10/19 06:45 MCH 29.2 pg (27.0-33.0) 06/10/19 06:45 MCHC 31.9 g/dL (32.0-36.0) L 06/10/19 06:45 RDW 14.5 % (11.7-14.6) 06/10/19 06:45 Plt Count 260 x1000/uL (130-400) 06/10/19 06:45 MPV 10.4 fL (8.0-11.0) 06/10/19 06:45 Immature Gran % 0.1 06/09/19 21:55 51.0 06/09/19 21:55 41.0 06/09/19 21:55 7.8 06/09/19 21:55 0.0 06/09/19 21:55 0.1 06/09/19 21:55 Absolute Neutrophils 4.58 k/cumm (1.2-6.7) 06/09/19 21:55 Absolute Lymphocytes 3.68 k/cumm (1.2-3.4) H 06/09/19 21:55 Absolute Monocytes 0.70 k/cumm (0.11-0.7) 06/09/19 21:55 Absolute Eosinophils 0.00 k/cumm (0.0-0.7) 06/09/19 21:55 Absolute Basophils 0.01 k/cumm (0.0-0.2) 06/09/19 21:55 Sodium 143 mmol/L (136-145) 06/10/19 06:45 Potassium 3.5 mmol/L (3.5-5.1) 06/10/19 06:45 Chloride 108 mmol/L (98-107) H 06/10/19 06:45 Carbon Dioxide 24.3 mmol/L (21.0-32.0) 06/10/19 06:45 10.7 mmol/L (3-11) 06/10/19 06:45 BUN 11 mg/dL (7-18) 06/10/19 06:45 0.77 mg/dL (0.55-1.02) 06/10/19 06:45 >= 60.00 (mL/min/1.73m2) 06/10/19 06:45 Glucose 103 mg/dL (70-100) H 06/10/19 06:45 Calcium 8.5 mg/dL (8.5-10.1) 06/10/19 06:45 Magnesium 1.9 mg/dL (1.8-2.4) 06/09/19 21:55 0.4 mg/dL (0.2-1.0) 06/10/19 06:45 AST 13 U/L (15-37) L 06/10/19 06:45 ALT 22 U/L (12-78) 06/10/19 06:45 82 U/L (46-116) 06/10/19 06:45 < 0.05 ng/mL (0.00-0.06) 06/09/19 21:55 6.5 g/dL (6.4-8.2) 06/10/19 06:45 2.9 g/dL (3.4-5.0) L 06/10/19 06:45 EKG: HR 72, no acute ischemia
[2019-06-10] MEDS: Topiramate 100 MG TAB PO ×2 (08:29→21:15)
[2019-06-10] MEDS: Meclizine 12.5 MG TAB PO ×2 (08:29→21:15)
[2019-06-10] MEDS: Cetirizine 10 MG TAB PO (08:32)
[2019-06-10] MEDS: Gabapentin 100 MG CAP PO (08:32)
[2019-06-10] MEDS: Aspirin E.C. 81 MG TABEC 162 MG PO (08:32)
[2019-06-10 09:00] LABS: TSH (W/Ref FT4) 0.63 uIU/mL (0.358-3.74)
--- NOTE | 2019-06-10 11:35 | PHARADMIT ---
Admission Pharmacy Clinical Review TIA, VERTIGO, DIPLOPIA, Chronic headaches (M/S overflow) Code Status Full Code Current Weight 118 kg Renally Cleared and Narrow Therapeutic Index Meds CrCl~85ml/min QTc Value / Action Taken QTC 438 BP Control, Fever BP 112/64 Afebrile Pain 2/10 Electrolytes reviewed WNL DVT Prophylaxis Heparin SC Opiate Usage / Scheduled Bowel Regimen Ordered none Plt/SCr for Heparin / Enoxaparin Plt 260 SCr 0.77 INR for Warfarin H/H stable, WBC/Bands H/H 13.1/41.1 WBC 6.98 Antibiotic appropriateness n/a Cultures and Sensitivities n/a Surgical ABX d/c within 24 hr DM control / Insulin Dosing BG 103 Heart Failure (Check EF%) (SERGIO's, B-Block, Diuretics) IV to PO Switch Home Meds Reviewed Pt's own Atrovent inhaler, Pt's own Dihydroergotamine nasal spray-not brought in Home Meds Not Ordered Omeprazole Comments need to rule out TIA, MRI of brain ordered, Echo ordered CT head: 2mm aneurysm in carotid, no infarct, no hemorrhage or mass Smoker-has Nicotine inhaler ordered
[2019-06-10] MEDS: Nicotine 14 MG/24 HR PATCH TD (13:52)
[2019-06-10 14:08] LABS: Troponin I < 0.05 ng/mL (0.00-0.06)
[2019-06-10 18:32] LABS: Troponin I < 0.05 ng/mL (0.00-0.06)
[2019-06-11] VITALS (25 sets, daily range): BP systolic 109–137; BP diastolic 75–88; PULSE 61–83; RESP 13–21; TEMP 36.3; O2SAT 95–96
[2019-06-11] MEDS: Normal Saline 1,000 ML 150 ML IV (01:55)
[2019-06-11] MEDS: Heparin 5,000 UNITS/ML VIAL 5000 UNITS SC ×2 (05:42→15:17)
[2019-06-11 06:48] LABS: Abs Immature Grans 0.01 k/cumm (0.0-0.09); Absolute Basophil Count 0.01 k/cumm (0.0-0.2); Absolute Lymphocyte Count 3.04 k/cumm (1.2-3.4); Absolute Monocyte Count 0.63 k/cumm (0.11-0.7); Basophils % 0.1; HCT 40.4 % (36.0-46.0); HGB 12.7 g/dL (12.0-15.5); Immature Grans % 0.1; Lymphocytes % 42.9; Mean Corp. HGB Concentration 31.4 g/dL (32.0-36.0); Mean Corpuscular Hemoglobin 28.8 pg (27.0-33.0); Mean Corpuscular Volume 91.6 fL (80-95); Mean Platelet Volume 10.3 fL (8.0-11.0); Monocytes % 8.9; Platelet Count 253 x1000/uL (130-400); RBC 4.41 m/cumm (4.00-5.20); RBC Distribution Width 14.5 % (11.7-14.6); White Blood Cell Count 7.09 k/cumm (4.4-10.8)
[2019-06-11 07:28] LABS: BUN 9 mg/dL (7-18); Calculated LDL 97 mg/dL; Chloride 112 mmol/L (98-107); Cholesterol 159 mg/dL (50-200); Glucose 91 mg/dL (70-100); HDL Cholesterol 36 mg/dL (40-60); Magnesium 1.7 mg/dL (1.8-2.4); Potassium 3.8 mmol/L (3.5-5.1); Sodium 143 mmol/L (136-145); Triglyceride 130 mg/dL (30-150)
--- NOTE | 2019-06-11 08:00 | DI.MRI_ITS ---
SYMPTOMS/DIAGNOSIS: TIA MRI OF THE BRAIN: Routine noncontrast examination. Comparison CT scan is 06/09/19. The ventricles and sulci are consistent with the patient's age. There are scattered areas of hyperintense signal in the white matter. The diffusion weighted images are unremarkable. No evidence of an acute infarct. No intracranial hemorrhage is seen. No intracranial mass, acute midline shift or mass effect is identified. A normal flow void is seen in the [place] of [place]. The pituitary gland is grossly unremarkable. The orbits appear grossly unremarkable. The visualized paranasal sinuses are clear. IMPRESSION: 1. No evidence of an acute infarct or intracranial hemorrhage. 2. Several T 2 hyperintense abnormalities in the white matter. These are nonspecific. This may represent early small vessel ischemic disease or other demyelinating process.
--- NOTE | 2019-06-11 08:00 | DI.MRI_ITS ---
SYMPTOMS/DIAGNOSIS: TIA MRA OF THE [place] OF [place]: Routine noncontrast examination was performed. There is patient motion artifact present. The distal internal carotid arteries are unremarkable. No evidence of occlusion, aneurysm or significant stenosis. The anterior cerebral arteries are unremarkable. No evidence of occlusion, aneurysm or significant stenosis. The middle cerebral arteries are unremarkable. No evidence of occlusion, aneurysm or significant stenosis. The posterior cerebral arteries are unremarkable without evidence of occlusion, aneurysm or significant stenosis. The basilar artery is unremarkable without evidence of occlusion, aneurysm or significant stenosis. IMPRESSION: Unremarkable MR Angiography of the brain.
--- NOTE | 2019-06-11 08:15 | W.PM.PROGNOT ---
Date of Service Date of service: 06/11/19 Time of Service: 08:15 Subjective Interval history since last seen: No neuro deficits appreciated overnight. 4 beats of Vtach at 13:35. Objective Objective Clinical Data: Abnormal lab results 06/10/19 06/11/19 06/11/19 Range/Units 06:45 06:20 06:20 MCHC 31.4 L (32.0-36.0) g/dL Chloride 108 H 112 H (98-107) mmol/L Glucose 103 H (70-100) mg/dL Calcium 8.0 L (8.5-10.1) mg/dL Magnesium 1.7 L (1.8-2.4) mg/dL AST 13 L (15-37) U/L Albumin 2.9 L (3.4-5.0) g/dL HDL Cholesterol 36 L (40-60) mg/dL Vital Signs Temperature 36.8 C 06/10/19 21:10 Temperature Source Temporal Artery Scan 06/10/19 21:10 Pulse 61 06/11/19 03:50 Pulse Rhythm Regular 06/11/19 01:27 Pulse 67 06/11/19 06:00 Respiratory Rate 14 06/11/19 06:00 Respiratory Effort 06/11/19 01:27 Respiratory Depth Normal 06/11/19 01:27 Respiratory Pattern Normal 06/11/19 01:27 Blood Pressure 122/75 06/11/19 03:50 Blood Pressure Mean 86 06/11/19 03:50 Blood Pressure Position Supine 06/10/19 00:25 Pulse Oximetry 94 L 06/10/19 21:12 Oxygen Delivery Method Room Air 06/10/19 21:10 Oxygen Flow Rate 0 06/10/19 21:10 Pain Level 2 06/10/19 04:00 Intake & Output 06/10/19 06/10/19 06/11/19 11:59 23:59 11:59 Intake Total 1000 / 3440 2440 / 3440 1200 / 1200 Output Total 775 / 1875 1100 / 1875 1175 / 1175 Balance 225 / 1565 1340 / 1565 25 / 25 Weight 118 kg 120 kg Intake: IV 1000 / 2965 1965 / 2965 1000 / 1000 Oral 475 / 475 200 / 200 Output: Urine 775 / 1875 1100 / 1875 1175 / 1175 Other: Urine Color Yellow Light Juanita Light Juanita Urine Appearance Clear Clear Clear Urine Odor None Normal Normal Comment Pt to BSC to void 350cc clear dark urine dipped, PH 7, SG 1.020 Stool Size Moderate Stool Characteristics Soft Voiding Methods Bedside Commode Bedside Commode Bedside Commode Laboratory Results WBC 7.09 k/cumm (4.4-10.8) 06/11/19 06:20 RBC 4.41 m/cumm (4.00-5.20) 06/11/19 06:20 Hgb 12.7 g/dL (12.0-15.5) 06/11/19 06:20 Hct 40.4 % (36.0-46.0) 06/11/19 06:20 MCV 91.6 fL (80-95) 06/11/19 06:20 MCH 28.8 pg (27.0-33.0) 06/11/19 06:20 MCHC 31.4 g/dL (32.0-36.0) L 06/11/19 06:20 RDW 14.5 % (11.7-14.6) 06/11/19 06:20 Plt Count 253 x1000/uL (130-400) 06/11/19 06:20 MPV 10.3 fL (8.0-11.0) 06/11/19 06:20 Immature Gran % 0.1 06/11/19 06:20 48.0 06/11/19 06:20 42.9 06/11/19 06:20 8.9 06/11/19 06:20 0.0 06/11/19 06:20 0.1 06/11/19 06:20 Absolute Neutrophils 3.40 k/cumm (1.2-6.7) 06/11/19 06:20 Absolute Lymphocytes 3.04 k/cumm (1.2-3.4) 06/11/19 06:20 Absolute Monocytes 0.63 k/cumm (0.11-0.7) 06/11/19 06:20 Absolute Eosinophils 0.00 k/cumm (0.0-0.7) 06/11/19 06:20 Absolute Basophils 0.01 k/cumm (0.0-0.2) 06/11/19 06:20 Sodium 143 mmol/L (136-145) 06/11/19 06:20 Potassium 3.8 mmol/L (3.5-5.1) 06/11/19 06:20 Chloride 112 mmol/L (98-107) H 06/11/19 06:20 Carbon Dioxide 21.0 mmol/L (21.0-32.0) 06/11/19 06:20 10.0 mmol/L (3-11) 06/11/19 06:20 BUN 9 mg/dL (7-18) 06/11/19 06:20 0.80 mg/dL (0.55-1.02) 06/11/19 06:20 >= 60.00 (mL/min/1.73m2) 06/11/19 06:20 Glucose 91 mg/dL (70-100) 06/11/19 06:20 Calcium 8.0 mg/dL (8.5-10.1) L 06/11/19 06:20 Magnesium 1.7 mg/dL (1.8-2.4) L 06/11/19 06:20 0.4 mg/dL (0.2-1.0) 06/10/19 06:45 AST 13 U/L (15-37) L 06/10/19 06:45 ALT 22 U/L (12-78) 06/10/19 06:45 82 U/L (46-116) 06/10/19 06:45 < 0.05 ng/mL (0.00-0.06) 06/10/19 17:45 6.5 g/dL (6.4-8.2) 06/10/19 06:45 2.9 g/dL (3.4-5.0) L 06/10/19 06:45 Triglycerides 130 mg/dL (30-150) 06/11/19 06:20 159 mg/dL (50-200) 06/11/19 06:20 LDL Cholesterol, Calc 97 mg/dL 06/11/19 06:20 36 mg/dL (40-60) L 06/11/19 06:20 TSH 0.63 uIU/mL (0.358-3.74) 06/10/19 06:45
[2019-06-11] MEDS: Gabapentin 100 MG CAP PO (08:43)
[2019-06-11] MEDS: Meclizine 12.5 MG TAB PO (08:44)
[2019-06-11] MEDS: Cetirizine 10 MG TAB PO (08:44)
[2019-06-11] MEDS: Aspirin E.C. 81 MG TABEC 162 MG PO (08:44)
[2019-06-11] MEDS: Magnesium Oxide 400 MG TAB PO (08:45)
[2019-06-11] MEDS: Topiramate 100 MG TAB PO (08:45)
[2019-06-11] MEDS: Nicotine 14 MG/24 HR PATCH TD ×2 (08:45→15:17)
--- NOTE | 2019-06-11 09:10 | MERGE_ITS ---
*[facility]* *[facility]* [address] [place] [address] Date of study: 06/11/2019 Transthoracic Echocardiography M-mode, complete 2D, complete spectral Doppler, and color Doppler *STUDY CONCLUSIONS* Summary: 1. Left ventricle: The cavity size was normal. Systolic function was normal. The estimated ejection fraction was 55-60%. Diastolic parameters were normal. There was no evidence of elevated ventricular filling pressure by Doppler parameters. 2. Aortic valve: There was trivial regurgitation. 3. Mitral valve: There was mild regurgitation. 4. Right ventricle: The cavity size was normal. Wall thickness was normal. Systolic function was normal. 5. Atrial septum: No defect or patent foramen ovale was identified. 6. Pulmonary arteries: Pulmonary systolic pressure was in the range of 15mm Hg to 25mm Hg. 7. Inferior vena cava: The vessel was patent and normal in size. The respirophasic diameter changes were in the normal range (greater than or equal to 50%), consistent with normal central venous pressure. *PATIENT PRESENTATION* Height: 172.7cm (68in ) S/D Pressure: 122 / 75 Weight: 117.9kg (259.5lb ) BSA: 2.43m^2 Test start time: 09:10 AM. Test stop time: 10:10 AM. PERFORMING Unknown PERFORMING [facility] INSULATION BLANKET MAKER RT Ellen (Godfrey)(CT), [facility] CONSULTING Angela Lake ORDERING Angela Lake REFERRING Angela Lake *PROCEDURE DATA* Procedure information: This study was interpreted by [facility]. Pertinent images and digital data are archived for permanent storage and are available for subsequent review. Comparison was made to the study of 03/22/2015. Study status: Routine. Transthoracic echocardiography. M-mode, complete 2D, complete spectral Doppler, and color Doppler. A Transthoracic Echocardiogram was performed. Scanning was performed from the parasternal, apical, subcostal, and suprasternal notch acoustic windows. Images were obtained using an [id number] cardiac ultrasound machine. Image quality was good. Study completion: The patient tolerated the procedure well. History: PMH: TIA. *CARDIAC ANATOMY* Left ventricle: The cavity size was normal. Systolic function was normal. The estimated ejection fraction was 55-60%. The transmitral flow pattern was normal. The deceleration time of the early transmitral flow velocity was normal. The pulmonary vein flow pattern was normal. The tissue Doppler parameters were normal. Diastolic parameters were normal. There was no evidence of elevated ventricular filling pressure by Doppler parameters. Aortic valve: Trileaflet. Doppler: There was no stenosis. There was trivial regurgitation. VTI ratio of LVOT to aortic valve: 0.85. Valve area (VTI): 2.6cm^2. Indexed valve area (VTI): 1.1cm^2/m^2. Peak velocity ratio of LVOT to aortic valve: 0.85. Valve area (Vmax): 2.6cm^2. Indexed valve area (Vmax): 1.1cm^2/m^2. Mean velocity ratio of LVOT to aortic valve: 0.69. Valve area (Vmean): 2.1cm^2. Indexed valve area (Vmean): 0.9cm^2/m^2. Mean gradient (S): 3.8mm Hg. Peak gradient (S): 5.7mm Hg. Aorta: Aortic root: The aortic root was normal in size. Ascending aorta: The ascending aorta was at upper normal limits. Mitral valve: Doppler: There was no evidence for stenosis. There was mild regurgitation. Valve area by pressure half-time: 4.2cm^2. Indexed valve area by pressure half-time: 1.7cm^2/m^2. Peak gradient (D): 2.7mm Hg. Left atrium: The atrium was normal in size. Atrial septum: No defect or patent foramen ovale was identified. Right ventricle: The cavity size was normal. Wall thickness was normal. Systolic function was normal. Pulmonic valve: Doppler: There was no evidence for stenosis. There was no significant regurgitation. Peak gradient (S): 2.7mm Hg. Tricuspid valve: Doppler: There was trivial regurgitation. Pulmonary artery: Poorly visualized. Pulmonary systolic pressure was in the range of 15mm Hg to 25mm Hg. Right atrium: The atrium was normal in size. Pericardium: There was no pericardial effusion. Systemic veins: Inferior vena cava: Well visualized. The vessel was patent and normal in size. The respirophasic diameter changes were in the normal range (greater than or equal to 50%), consistent with normal central venous pressure. Baseline ECG: Normal sinus rhythm. Measurements Left ventricle Value Reference LV ID, ED, PLAX 5.6 cm 3.5 - 6.0 LV ID, ES, PLAX 4.0 cm 2.1 - 4.0 LV PW thickness, ED, PLAX 0.8 cm LV end-diastolic volume, 1-p A2C 115 ml LV ejection fraction, 1-p A2C 56 % LV end-diastolic volume, 1-p A4C 97 ml LV ejection fraction, 1-p A4C 57 % LV e', lateral 0.12 m/sec LV E/e', lateral 7 LV e', medial 0.124 m/sec LV E/e', medial 7 LV e', average 0.122 m/sec LV E/e', average 7 Ventricular septum Value Reference IVS thickness, ED, PLAX 0.8 cm LVOT Value Reference LVOT ID, A-P 2.0 cm LVOT area 3.1 cm^2 LVOT peak velocity, S 1.02 m/sec LVOT mean velocity, S 0.64 m/sec LVOT VTI, S 22.0 cm LVOT peak gradient, S 4.2 mm Hg LVOT mean gradient, S 2 mm Hg Stroke volume (SV), LVOT DP 67 ml Stroke index (SV/bsa), LVOT DP 28 ml/m^2 Aortic valve Value Reference Aortic valve peak velocity, S 1.2 m/sec Aortic valve mean velocity, S 0.9 m/sec Aortic valve VTI, S 26.0 cm Aortic mean gradient, S 3.8 mm Hg Aortic peak gradient, S 5.7 mm Hg VTI ratio, LVOT/AV 0.85 Aortic valve area, VTI 2.6 cm^2 Velocity ratio, peak, LVOT/AV 0.85 Aortic valve area, peak velocity 2.6 cm^2 Velocity ratio, mean, LVOT/AV 0.69 Aortic valve area, mean velocity 2.1 cm^2 Aortic valve area/bsa, mean velocity 0.9 cm^2/m^2 Aorta Value Reference Aortic root ID, ED 3.4 cm Ascending aorta ID, A-P, S 3.1 cm Left atrium Value Reference LA ID, A-P, ES 3.4 cm LA ID/bsa, A-P 1.4 cm/m^2 <=2.2 LA volume, ES, 2-p 48 ml LA volume/bsa, ES, 2-p 20 ml/m^2 LA/aortic root ratio 1 Mitral valve Value Reference Mitral E-wave peak velocity 0.82 m/sec Mitral A-wave peak velocity 0.79 m/sec Mitral deceleration time 182 ms 150 - 230 Mitral pressure half-time 53 ms Mitral peak gradient, D 2.7 mm Hg Mitral E/A ratio, peak 1.04 Mitral valve area, PHT, DP 4.2 cm^2 Tricuspid valve Value Reference Tricuspid regurg peak velocity 2.1 m/sec Tricuspid peak RV-RA gradient 18.1 mm Hg Right atrium Value Reference RA area, ES, A4C 14.5 cm^2 8.3 - 19.5 Pulmonic valve Value Reference Pulmonic peak gradient, S 2.7 mm Hg Legend: (L) and (H) john values outside specified reference range. I have personally reviewed the images and have reviewed and edited the reported findings. Electronically signed by Akira Torres MD 06/11/2019 10:27
[2019-06-11] MEDS: clonazePAM 1 MG TAB PO (10:54)
--- NOTE | 2019-06-11 15:08 | PDOC.CMDIS ---
LACE Index Scoring Tool - Questions: Length of Stay (in days): 2 Acuity (Admit via E.D.?): Yes E.D. Visits: 4 - Answers: Total Score: 9 Risk of Readmission: Low Risk Care Management Discharge Reason for Hospitalization: TIA, Vertigo, Diplopia Discharge Plan: Dinesh will return home with outpatient follow up plan and transport via private vehicle with family. Patient/Family Education Needs: Review of discharge instructions, discuss Ask Me Three.
--- NOTE | 2019-06-11 17:09 | W.NEUROCONSU ---
Date of service: 06/11/19 Time of Service: 17:09 Assessment and Plan (1) Atypical migraine: Current visit: Yes Status: Acute (2) Migraine headache with aura: Current visit: Yes Status: Acute (3) Migraine headache without aura: Current visit: Yes Status: Acute (4) Chronic headache: Current visit: Yes Status: Acute Ms. John is a 49-year-old, left-handed woman with a known history of chronic migraine headaches with and without aura with varying visual complaints, nonspecific dizziness, nausea, gait imbalance, and headache. Her neurological exam was unremarkable and she has had an extensive radiological exam which has also been negative. Her visual complaints are classic for migraine which I discussed with her. She has had increased migraines in the last few weeks. She does not note any specific triggers, though stress has been a trigger in the past. Hopefully, her migraines will reduce in frequency over time. I will not make any changes to her prophylactic regimen. I do recommend a prescription of Compazine when she can use 5 to 10 mg every 8 hours as needed for her mild to moderate headaches. ADRs were discussed. She can continue to use Migranal/Zofran for her more severe headaches. Otherwise, there was a finding of a possible 2 mm right ICA aneurysm. I discussed this extensively with her. I recommend a repeat CTA head and neck in 3 months. I can order this as an outpatient. We discussed smoking cessation. She should follow-up in the neurology clinic in the next 1 to 2 months. DISCLAIMER: This note was created using [employer] voice recognition software. (5) Right internal carotid artery aneurysm: Current visit: No Status: Suspected History of Present Illness Chief Complaint: vision changes and dizziness Narrative: Handedness: LEFT. HPI: Ms. John is a 49-year-old woman with a past medical history of migraine headaches with and without aura, chronic pain, obstructive sleep apnea, depression, anxiety, PTSD, and cigarette smoking. Ms. John was admitted on 06/09/2019. Around 5 PM that day, she was driving home from [place] at which time she experienced transient and varying visual disturbances including double vision and triple vision in addition to dizziness which she described as neither lightheadedness nor vertigo?I just felt funny - nausea, gait imbalance, and difficulty driving (she reports weaving across the yellow line multiple times on the road). She also describes a generalized heaviness in her body, shortness of breath, and a headache. She is on aspirin 81mg daily at baseline. Since admission, she has continued to have visual disturbances. Today she notes a concavity when looking at her cell phone. She has continued to have headaches, but only when standing. Sitting up in bed does not cause headaches. Her dizziness and nausea have improved. She has a history of chronic migraine headaches with and without aura. She previously was following in the [facility].. She was last seen in August 2018. She reports improved headaches over the last year with approximately 2 severe migraines per month and 2 regular headaches per week. She attributes her improved headache frequency to reduced stress. However, she has had increased headaches for the last 1 to 2 weeks. She reports no increased stress and does not note any triggers for this. She is currently on Topamax 100 mg twice daily for migraine prophylaxis. She is on venlafaxine which also has migraine preventative properties. It is not clear if she is taking cyproheptadine any longer. She is also on gabapentin for her pain which has some migraine prophylaxis capabilities as well. For rescue therapy, she generally uses intranasal DHE/Migranal along with Zofran. This is quite effective but is very sedating for her so she does not often use it. In addition, per the records, she has a chronic history of vertigo. She reports no dizziness in recent years which she attributes to taking meclizine twice daily. She describes this dizziness as a spinning sensation. She has had an extensive work-up as below. I was able to review the images personally. -CT head: no acute -CTA head and neck: possible 2mm R supraclinoid ICA aneurysm -MRI brain w/o: no acute. Chronic T2 hyperintentsities c/w vs migraine. -TTE: EF 55-60%, LA normal. -Prophylactic medications: TPM 100mg BID, amitriptyline, venlafaxine, Flexeril, metoprolol, cyproheptadine -Rescue medications: DHE nasal spray/Migrainal (works), Zomig/zolmotritpan, sumatriptan, Toradol, indomethacin, naproxen ketamine, Vicodin, hydroxyzine, zofran Consults Requesting physician: Angela Lake Review of Systems Review of Systems All systems reviewed & are unremarkable except as noted in HPI and below PFSH Medical History Anxiety Asthma Chronic pain Cigarette smoker Depression Dysphagia Family history of colon cancer GERD (gastroesophageal reflux disease) Hyperthyroidism Intertrigo Migraine Obese Obstructive sleep apnea Postmenopausal bleeding PTSD (post-traumatic stress disorder) Syncope Thyroid nodule Vertigo Surgical History Colonoscopy - MAC (02/14/18) EGD - MAC (02/14/18) Replacement of total knee joint Rotator Cuff Repair Family History Father Rheumatoid arthritis Brother Rheumatoid arthritis Social History Smoking/Tobacco Use Status: Current every day Tobacco Type: cigarettes Tobacco: How many years used: 25 Alcohol Intake: current Alcohol Intake frequency: holidays/special occasions only Alcohol type: wine Drug use: Occasionally Substance use type: marijuana Details: marijuana couple days since I smoked Do you feel safe at home: Yes Additional Social history: no relationship, thats done Visit Medication and Allergies Active Medications Generic Name Dose Route Start Last Admin Trade Name Freq PRN Reason Stop Dose Admin Acetaminophen 1,000 mg 06/09/19 23:39 Tylenol PO Q4H PRN PRN Al Hydrox/Mg Hydrox/Simethicone 30 ml 06/09/19 23:39 Mylanta Liquid PO Q2H PRN PRN Albuterol Sulfate 2 puff 06/10/19 07:17 Ventolin Hfa IH Q4H PRN PRN Aspirin 162 mg 06/10/19 08:30 06/11/19 08:44 Ecotrin PO 162 mg DAILY TALI Administration Cetirizine HCl 10 mg 06/10/19 08:30 06/11/19 08:44 Zyrtec PO 10 mg DAILY TALI Administration Clonazepam 1 mg 06/10/19 07:17 06/11/19 10:54 Klonopin PO 1 mg TID PRN PRN Administration Dimethicone/Zinc Oxide 0 gm 06/09/19 23:33 Joe Protect Cream TP PRN PRN Docusate Sodium 100 mg 06/09/19 23:39 Colace PO TID PRN PRN Gabapentin 100 mg 06/10/19 08:30 06/11/19 08:43 Neurontin PO 100 mg DAILY TALI Administration Heparin Sodium (Porcine) 5,000 units 06/10/19 06:00 06/11/19 15:17 SC 5,000 units Q8H TALI Administration IV Miscellaneous Supplies 1 each 06/09/19 22:15 IV DIRECTED TALI Ibuprofen 600 mg 06/10/19 07:18 Motrin PO TID PRN PRN Magnesium Hydroxide 30 ml 06/09/19 23:39 Milk Of Magnesia PO DAILY PRN PRN Magnesium Oxide 400 mg 06/11/19 08:30 06/11/19 08:45 Mag-Ox 400 PO 400 mg DAILY TALI Administration Meclizine HCl 12.5 mg 06/10/19 08:30 06/11/19 08:44 Antivert PO 12.5 mg BID TALI Administration Meclizine HCl 25 mg 06/10/19 07:18 Antivert PO TID PRN PRN Nicotine 30 cartridge 06/09/19 23:51 06/10/19 10:48 Nicotrol 30 Cartridges/Pack IH 1 dose pk Q2H PRN PRN Administration Nicotine 14 mg 06/11/19 08:30 06/11/19 15:17 Nicoderm Cq TD 14 mg DAILY [facility] Administration Ondansetron HCl 4 mg 06/10/19 07:19 Zofran PO Q6H PRN PRN Patient's Own 0 each 06/10/19 01:45 Medication CAMI Dihydroergotamine PRN PRN Nasal Adrian MIGRAINE Patient's Own 0 each 06/10/19 01:45 Atrovent Inhaler IH Q4H PRN Polyethylene Glycol 17 gm 06/10/19 07:20 Miralax PO DAILY PRN PRN Sodium Chloride 0 ml 06/09/19 22:04 06/09/19 22:33 Saline Flush 10 Ml Syringe IVP 20 ml PRN PRN Administration Topiramate 100 mg 06/10/19 08:30 06/11/19 08:45 Topamax PO 100 mg BID [facility] Administration Venlafaxine HCl 225 mg 06/10/19 08:30 06/11/19 08:43 Effexor Xr Cap PO 225 mg DAILY [facility] Administration Allergies adhesive Allergy (Intermediate, Verified 06/09/19 21:39) gets red and welts up codeine Allergy (Intermediate, Unverified 06/09/19 21:39) Itching oxycodone HCl [From Percocet] Allergy (Intermediate, Unverified 06/09/19 21:39) Anaphylaxsis morphine Allergy (Verified 06/09/19 21:39) Itching Exam Narrative Exam Narrative: Physical Exam: Gen: Patient of apparent stated age, NAD Head and face: no facial or cranial abnormalities Neck: Supple, no meningismus, no occipital tenderness CV: + S1, S2, RRR, no murmur Resp: CTA B/L Abd: soft, nontender, nondistended Ext: No edema. No clubbing or cyanosis. No bony deformity. Neuro Exam: Language: fluency, naming, repetition, and comprehension intact; Mental Status: AAOx3, current events intact, fund of knowledge intact; Speech: no dysarthria Cranial nerves: Funduscopy: not performed CN II: visual alexander intact CN III, IV, : extraocular movements intact, no nystagmus, pupils symmetric and reactive to light CN V: face sensation intact to LT and PP CN VII: no facial asymmetry noted CN VIII: hearing intact bilaterally CN IX, X: palate rises symmetrically CN XI: trapezius/SCM 5/5 bilaterally CN XII: protrudes tongue symmetrically Sensory: intact to LT and PP in all extremities Motor: bulk and tone intact. Fine motor movements intact bilaterally. No pronator drift. Strength 5/5 throughout including the deltoids, biceps, triceps, wrist extensors, hip flexors, knee flexors, knee extensors, ankle flexors, and ankle extensors. Reflexes: 2+ at the biceps, triceps, brachioradialis; reduced at the patella and achilles tendons bilaterally; toes down going bilaterally; Coordination: FTN and HTS intact bilaterally Gait: deferred Results Last Vital Signs Temp 36.3 C L 06/11/19 08:40 Pulse 64 06/11/19 15:12 Resp 16 06/11/19 15:12 BP 113/83 06/11/19 15:12 Pulse Ox 96 06/11/19 11:00 Labs : 06/11/19 06:20 06/11/19 06:20 Laboratory Results - last 24 hr 06/10/19 06/11/19 06/11/19 17:45 06:20 06:20 WBC 7.09 RBC 4.41 Hgb 12.7 Hct 40.4 MCV 91.6 MCH 28.8 MCHC 31.4 L RDW 14.5 Plt Count 253 MPV 10.3 Immature Gran % 0.1 Neutrophils % 48.0 Lymphocytes % 42.9 Monocytes % 8.9 Eosinophils % 0.0 Basophils % 0.1 Absolute Neutrophils 3.40 Absolute Lymphocytes 3.04 Absolute Monocytes 0.63 Absolute Eosinophils 0.00 Absolute Basophils 0.01 Sodium 143 Potassium 3.8 Chloride 112 H Carbon Dioxide 21.0 Anion Gap 10.0 BUN 9 Creatinine 0.80 Estimated GFR/1.73 m2 >= 60.00 Glucose 91 Calcium 8.0 L Magnesium 1.7 L Troponin I < 0.05 Triglycerides 130 Total Cholesterol 159 LDL Cholesterol, Calc 97 HDL Cholesterol 36 L
--- NOTE | 2019-06-11 17:32 | W.PM.DS.N ---
Date of service: 06/11/19 Time of Service: 17:33 DS: Diagnosis Discharge Diagnosis (1) Atypical migraine: Status: Acute (2) Right internal carotid artery aneurysm: Status: Suspected (3) Chest pain: Status: Acute (4) Tobacco abuse: Status: Acute (5) Anxiety: Status: None (6) GERD (gastroesophageal reflux disease): Status: None (7) Vertigo: Status: None (8) Thyroid nodule: Status: Acute Discharge Plan Disposition Patient Disposition: HOME Condition: Stable Discharge Details Chief Complaint: Dizzy/Sync Clinical Impression: Dizziness, Diplopia Reason For Visit: TIA, VERTIGO, DIPLOPIA Admit Date/Time: 06/09/19 23:33 Admit Provider: Jorden Land Attending Provider: Jorden Land Primary Care Provider: Lucy Courtney ED Provider: Ramon Navarro [facility] Hospital Course Hospital Course: Ms John is a 49 year old female with PMHx of migraines, vertigo, ongoing tobacco abuse, obesity with BMI of 40, GERD, observed on [facility] hospitalist service from 06/09/19 until 06/11/19 for an episode of diplopia, incoordination, lightheadedness, unsteady gait. Her workup consisted of a negative CT of her head, a CTA of her head/neck revealing a question of 2 mm aneurysm in the supraclinoid segment of her R internal carotid artery, a 2.5 cm left thyroid nodule. Her brain MRI was negative for an acute CVA, but did show several nonspecific areas of white matter abnormalities. MRA was negative. Her echo revealed an EF of 55-60% with normal diastolic parameters, PA pressures of 15to 25 mm Hg. Her telemetry revealed 1 episode of 4 beats of nonsustained Vtach presumably while she was asleep. She was evaluated by Dr Panchal of neurology - it is felt that the patient had an atypical migraine resulting in her symptoms. She is being discharged home today with a prescription for prn compazine, recommendations for follow up with Dr Panchal (patient appears to have fallen out of follow up with [facility] [place]) for her migraines as well as for repeat of her CTA given the suspicion for a 2 mm R internal carotid aneurysm. The patient is strongly encouraged to stop smoking. She could benefit from a sleep study as outpatient. Finally, the patient did have an episode of chest pain on 06/10/19 - her EKG and troponins were negative. It is felt that her chest pain was due to anxiety, for which she should follow up with her PCP. She will need outpatient follow up for her incidentally found thyroid nodule. She is stable for discharge home today. Home Meds and New Rx's Prescriptions: New magnesium oxide 400 mg (241.3 mg magnesium) Tablet 400 mg PO DAILY Qty: 10 RF: 0 prochlorperazine maleate [Compazine] 5 mg tablet 5 - 10 mg PO Q8H PRN PRN (Reason: migraine) Qty: 30 RF: 1 Continued dihydroergotamine [Migranal] 1 ML spray,non-aerosol 1 ml NS PRN RF: 0 cetirizine [Zyrtec] 10 MG tablet 10 mg PO DAILY RF: 0 ondansetron HCl [Zofran] 4 MG tablet 4 mg PO PRN RF: 0 meclizine 12.5 MG tablet 12.5 mg PO BID RF: 0 polyethylene glycol 3350(bulk) 1 GM granules 17 gm PO DAILY PRNQty: 527 RF: 3 omeprazole 40 MG capsule,delayed release(DR/EC) 40 mg PO BID Qty: 60 RF: 3 acetaminophen 500 mg capsule 1,000 mg PO Q8H PRN (Reason: pain) Qty: 90 RF: 0 venlafaxine 75 MG tablet 225 mg PO DAILY RF: 0 topiramate 100 MG tablet 100 mg PO BID RF: 0 Atrovent HFA 1 PUFF HFA aerosol inhaler 1 puff Inhalation Q8H PRNRF: 0 albuterol sulfate [Proventil HFA] 200 PUFF HFA aerosol inhaler 2 puff Inhalation PRN PRNRF: 0 Narcan 4 MG spray,non-aerosol 4 mg NS PRN Qty: 2 RF: 0 nicotine 14 mg/24 hr Patch 24 Hour 1 patch TRANSDERMAL DAILY RF: 0 clonazepam 1 mg Tablet 1 mg PO TID PRNRF: 0 nicotine 7 mg/24 hr Patch 24 Hour 1 patch TRANSDERMAL Q24H RF: 0 gabapentin 100 mg Capsule 100 mg PO DAILY RF: 0 ibuprofen 600 mg tablet 600 mg PO TID PRNQty: 90 RF: 3 hydromorphone 2 mg tablet 2 mg PO Q4H PRN (Reason: severe post-operative pain) Qty: 6 RF: 0 Discontinued nicotine 21 mg/24 hr Patch 24 Hour 1 patch TRANSDERMAL DAILY RF: 0 Discharge Instructions Instructions: Prochlorperazine (By mouth), How to Stop Smoking (DC), Migraine Headache (DC) Additional Instructions: You have follow-up scheduled with Dr. Brunson on TuesdayJune 15 and 1029. Return to the hospital with any fever, bleeding, chest pain, shortness of breath. Follow up with your PCP in 1-2 weeks. Follow up with Dr Panchal in 3 months. You must stop smoking. Bloodwork in 1 week Referrals: Lucy Courtney [Primary Care Provider] - Ania Panchal MD [ [facility] STAFF PHYSICIAN] - (atypical migraines, question of 2 mm R internal carotid aneurysm, will need repeat CT) Activity:: Activity as Tolerated Equipment/Supplies:: No Equipment Needed Diet:: As Tolerated Discharge Orders Discharge Orders: Discharge Order (Routine); Ordered 06/11/19 Ordered By: Angela Lake Other Ambulatory Orders: Magnesium (Routine) Timeframe: 1 Week Facility: [facility] - Location: Laboratory Outpatient Ordered By: Angela Lake Exam Narrative Exam Narrative: General: obese female, comfortable in bed, appears animated, talking on the phone, A&Ox3, no focal deficits appreciated HEENT: EOMI, MMM Heart: RRR, no m/r/g Lungs: CTAB GI: abdomen is soft, nontender, nondistended Extremities: no e/c/c BLE's, 1+ BLE pedal pulses DS: Data Vitals/I&O Vitals and I&O: Vital Signs Temperature 36.3 C L 06/11/19 08:40 Temperature Source Temporal Artery Scan 06/11/19 08:40 Pulse 64 06/11/19 15:12 Pulse Rhythm Regular 06/11/19 15:20 Pulse 63 06/11/19 15:12 Respiratory Rate 16 06/11/19 15:12 Respiratory Effort 06/11/19 15:20 Respiratory Depth Normal 06/11/19 15:20 Respiratory Pattern Normal 06/11/19 15:20 Blood Pressure 113/83 06/11/19 15:12 Blood Pressure Mean 90 06/11/19 15:12 Blood Pressure Position Supine 06/10/19 00:25 Pulse Oximetry 96 06/11/19 11:00 Oxygen Delivery Method Room Air 06/10/19 21:10 Oxygen Flow Rate 0 06/10/19 21:10 Pain Level 10 06/11/19 08:40 Intake & Output 06/10/19 06/11/19 06/11/19 23:59 11:59 23:59 Intake Total 2440 / 3440 1450 / 1550 100 / 1550 Output Total 1100 / 1875 1525 / 1725 200 / 1725 Balance 1340 / 1565 -75 / -175 -100 / -175 Weight 120 kg Intake: IV 1965 / 2965 1000 / 1000 Oral 475 / 475 450 / 550 100 / 550 Output: Urine 1100 / 1875 1525 / 1725 200 / 1725 Other: Urine Color Light Juanita Yellow Yellow Urine Appearance Clear Clear Clear Urine Odor Normal Normal Normal Comment Patient went to [place] and showered Stool Size Moderate Stool Characteristics Soft Voiding Methods Bedside Commode Bedside Commode Bedside Commode Completed studies during hospitalization [Text1]: CT head without contrast 06/09/19: No acute intracranial process. CTA head 06/09/19: 1. No evidence of significant stenosis or dissection. 2. Question of a 2 mm., medially oriented aneurysm arising from the supraclinoid segment of the right internal carotid artery. CTA neck 06/09/19: 1. No significant stenosis or aneurysm. No evidence of acute dissection involving the cervical arteries. 2. 2.5 cm. heterogeneous left thyroid nodule. Thyroid ultrasound may be considered for further evaluation. MRI brain 06/11/19: 1. No evidence of an acute infarct or intracranial hemorrhage. 2. Several T 2 hyperintense abnormalities in the white matter. These are nonspecific. This may represent early small vessel ischemic disease or other demyelinating process. MRA brain 06/11/19: Unremarkable MR Angiography of the brain. Echo 06/11/19: 1. Left ventricle: The cavity size was normal. Systolic function was normal. The estimated ejection fraction was 55-60%. Diastolic parameters were normal. There was no evidence of elevated ventricular filling pressure by Doppler parameters. 2. Aortic valve: There was trivial regurgitation. 3. Mitral valve: There was mild regurgitation. 4. Right ventricle: The cavity size was normal. Wall thickness was normal. Systolic function was normal. 5. Atrial septum: No defect or patent foramen ovale was identified. 6. Pulmonary arteries: Pulmonary systolic pressure was in the range of 15mm Hg to 25mm Hg. 7. Inferior vena cava: The vessel was patent and normal in size. The respirophasic diameter changes were in the normal range (greater than or equal to 50%), consistent with normal central venous pressure. Labs on day of discharge: Labs from last 24 hours 06/11/19 06/11/19 06/10/19 06:20 06:20 17:45 WBC 7.09 RBC 4.41 Hgb 12.7 Hct 40.4 MCV 91.6 MCH 28.8 MCHC 31.4 L RDW 14.5 Plt Count 253 MPV 10.3 Immature Gran % 0.1 Neutrophils % 48.0 Lymphocytes % 42.9 Monocytes % 8.9 Eosinophils % 0.0 Basophils % 0.1 Absolute Neutrophils 3.40 Absolute Lymphocytes 3.04 Absolute Monocytes 0.63 Absolute Eosinophils 0.00 Absolute Basophils 0.01 Sodium 143 Potassium 3.8 Chloride 112 H Carbon Dioxide 21.0 Anion Gap 10.0 BUN 9 Creatinine 0.80 Estimated GFR/1.73 m2 >= 60.00 Glucose 91 Calcium 8.0 L Magnesium 1.7 L Troponin I < 0.05 Triglycerides 130 Total Cholesterol 159 LDL Cholesterol, Calc 97 HDL Cholesterol 36 L PFSH Medical History Anxiety Asthma Chronic pain Cigarette smoker Depression Dysphagia Family history of colon cancer GERD (gastroesophageal reflux disease) Hyperthyroidism Intertrigo Migraine Obese Obstructive sleep apnea Postmenopausal bleeding PTSD (post-traumatic stress disorder) Syncope Thyroid nodule Vertigo Surgical History Colonoscopy - MAC (02/14/18) EGD - MAC (02/14/18) Replacement of total knee joint Rotator Cuff Repair Family History Father Rheumatoid arthritis Brother Rheumatoid arthritis Social History Smoking/Tobacco Use Status: Current every day Tobacco Type: cigarettes Tobacco: How many years used: 25 Alcohol Intake: current Alcohol Intake frequency: holidays/special occasions only Alcohol type: wine Drug use: Occasionally Substance use type: marijuana Details: marijuana couple days since I smoked Do you feel safe at home: Yes Additional Social history: no relationship, thats done
== END 2019-06-11 18:00 | disposition home or self-care (01) ==
LOC: ER 23:41 → ICU 06-10 00:41
PROVIDERS: Admitting Provider Family Medicine; Emergency Provider Emergency Medicine; PCP Nurse Practitioner Family; Visit Provider Internal Medicine
DX: G43.109 Migraine with aura, not intractable, without status migrainosus (principal); G43.009 Migraine without aura, not intractable, without status migrainosus; G43.809 Other migraine, not intractable, without status migrainosus; R51 Headache; R42 Dizziness and giddiness; R07.9 Chest pain, unspecified; I67.1 Cerebral aneurysm, nonruptured; G89.29 Other chronic pain; F17.210 Nicotine dependence, cigarettes, uncomplicated; F41.9 Anxiety disorder, unspecified; K21.9 Gastro-esophageal reflux disease without esophagitis; E04.1 Nontoxic single thyroid nodule
CPT/HCPCS: 36415; 70496; 70498; 70544; 80048; 80053; 80061; 83721; 85027; 93005; 93306; 96361; 96374; 99215; 99217; 99220; 99223; 99232; 99285; 70551; 83735; 84443; 84484; 85025; 93010; 99225; G0378; J1644; J2405; J3490

== ENCOUNTER → 2019-06-11 08:11 | Outpatient (BNVA) | payer MEDICARE, SELFPAY | PROVIDERS: PCP Nurse Practitioner Family; Visit Provider Psychiatry & Neurology Neurology | DX: R69 Illness, unspecified (principal) ==

== ENCOUNTER → 2019-06-15 10:31 | Outpatient (BNVA) | payer MEDICARE, MEDICAID, SELFPAY | PROVIDERS: PCP Nurse Practitioner Family; Referring Provider Nurse Practitioner Family; Visit Provider Student in an Organized Health Care Education/Training Program | DX: Z47.89 Encounter for other orthopedic aftercare (principal); M25.562 Pain in left knee | CPT/HCPCS: 20610; J1040 ==

== ENCOUNTER 2019-06-26 13:28 | Emergency (ER) | payer MEDICARE, MEDICAID, SELFPAY ==
[2019-06-26 13:32] VITALS: BP 165/85; PULSE 65; RESP 14; TEMP 36.3; O2SAT 97
--- NOTE | 2019-06-26 13:32 | ED.GENADUL_ITS ---
Discharge Plan Disposition Patient Disposition: HOME Condition: Improving Discharge Details Chief Complaint: Headache Clinical Impression: Migraine Primary Care Provider: Lucy Courtney ED Provider: Breann Hudson Home Meds and New Rx's Prescriptions: Continued dihydroergotamine [Migranal] 1 ML spray,non-aerosol 1 ml NS PRN RF: 0 cetirizine [Zyrtec] 10 MG tablet 10 mg PO DAILY RF: 0 ondansetron HCl [Zofran] 4 MG tablet 4 mg PO PRN RF: 0 meclizine 12.5 MG tablet 12.5 mg PO BID RF: 0 polyethylene glycol 3350(bulk) 1 GM granules 17 gm PO DAILY PRNQty: 527 RF: 3 omeprazole 40 MG capsule,delayed release(DR/EC) 40 mg PO BID Qty: 60 RF: 3 acetaminophen 500 mg capsule 1,000 mg PO Q8H PRN (Reason: pain) Qty: 90 RF: 0 venlafaxine 75 MG tablet 225 mg PO DAILY RF: 0 topiramate 100 MG tablet 100 mg PO BID RF: 0 magnesium oxide 400 mg (241.3 mg magnesium) Tablet 400 mg PO DAILY Qty: 10 RF: 0 prochlorperazine maleate [Compazine] 5 mg tablet 5 - 10 mg PO Q8H PRN PRN (Reason: migraine) Qty: 30 RF: 1 Atrovent HFA 1 PUFF HFA aerosol inhaler 1 puff Inhalation Q8H PRNRF: 0 albuterol sulfate [Proventil HFA] 200 PUFF HFA aerosol inhaler 2 puff Inhalation PRN PRNRF: 0 Narcan 4 MG spray,non-aerosol 4 mg NS PRN Qty: 2 RF: 0 nicotine 14 mg/24 hr Patch 24 Hour 1 patch TRANSDERMAL DAILY RF: 0 clonazepam 1 mg Tablet 1 mg PO TID PRNRF: 0 nicotine 7 mg/24 hr Patch 24 Hour 1 patch TRANSDERMAL Q24H RF: 0 gabapentin 100 mg Capsule 100 mg PO DAILY RF: 0 ibuprofen 600 mg tablet 600 mg PO TID PRNQty: 90 RF: 3 hydromorphone 2 mg tablet 2 mg PO Q4H PRN (Reason: severe post-operative pain) Qty: 6 RF: 0 Discharge Instructions Instructions: Migraine Headache (ED) Additional Instructions: Encourage hydration. Please continue medications as previously prescribed. Please follow-up with primary care in 1 week to discuss recurrence of her symptoms. If you develop fever/chills, rash, increased pain, inability stay hydrated or the new/worsening symptoms please seek care urgently once again. Referrals: Lucy Courtney [Primary Care Provider] - Discharge Data Discharge Date/Time-TO BE ENTERED AT DEPARTURE: 06/26/19 14:40 Medical Decision Making Patient presents today with chief complaint of migraine. Patient's been here multiple times for migraines in the past. She reports is been several months since her last migraine. Reports that her typical home regimen has been unsuccessful in alleviating her discomfort as of yet. She is endorsing nausea, vomiting, photophobia. States it feels typical. No fevers or chills. No nuchal rigidity on exam. No rash. Denies any chest pain, shortness of breath. Patient is not anticoagulated. No trauma. On exam, patient appears nontoxic. She is referring to keep her eyes closed secondary to photophobia. Vital signs significant for hypertension of 165/85. She is afebrile. No meningismus. Neuro exam is normal Patient given Toradol, dexamethasone, IV hydration. Phenergan. After these interventions, patient reports that her headache and nausea completely resolved.. She is requesting discharge at this time. Patient is to be discharged home. I advised follow-up with primary care in 1 week. She is given strict return precautions. She will continue with her medications as previously prescribed. All her questions and concerns were addressed and she is in agreement this plan. HPI General Mode of arrival: ambulatory . Date/Time Provider Initiated Documentation: 06/26/19 13:29 . Limitations to Documentation: no limitations . Information obtained by: patient, family and RN notes reviewed . History of Present Illness 49 year old F presents to the emergency department with the chief complaint of migraine, described as severe and similar to prior episodes, with intensity rated at 10. Quality is described as stabbing, and is localized to the head. Patient reports no radiation. Patient started experiencing this hour(s) (0300) and it has been constant. No relieving factors improve symptom(s), No exacerbating factors reported . Patient notes loss of appetite and nausea/vomiting; denies confusion, chest pain, cough, diaphoresis, fever/chills, rash, shortness of breath and weakness. Patient did receive the following treatments prior to arrival, other (migrinol, antiemetic) Related Data Home Medications Medication Instructions Recorded Confirmed venlafaxine 225 mg PO DAILY 05/16/16 06/15/19 topiramate 100 mg PO BID 06/18/16 06/15/19 dihydroergotamine [Migranal] 1 ml NS PRN script 07/07/16 06/15/19 Atrovent HFA 1 puff INHALATION Q8H PRN 12/05/16 06/15/19 albuterol sulfate [Proventil HFA] 2 puff INHALATION PRN PRN 02/15/17 06/15/19 Narcan 4 mg NS PRN #2 spray 09/27/17 06/15/19 cetirizine [Zyrtec] 10 mg PO DAILY tab-cap 01/31/18 06/15/19 meclizine 12.5 mg PO BID 01/31/18 06/15/19 ondansetron HCl [Zofran] 4 mg PO PRN 01/31/18 06/15/19 polyethylene glycol 3350(bulk) 17 gm PO DAILY PRN #527 gm 01/31/18 06/15/19 omeprazole 40 mg PO BID #60 tab-cap 03/31/18 06/15/19 clonazepam 1 mg PO TID PRN 11/29/18 06/15/19 gabapentin 100 mg PO DAILY 11/29/18 06/15/19 nicotine 1 patch TRANSDERMAL DAILY 11/29/18 06/15/19 nicotine 1 patch TRANSDERMAL Q24H 11/29/18 06/15/19 ibuprofen 600 mg PO TID PRN #90 tab 11/30/18 06/15/19 acetaminophen 500 mg capsule 1,000 mg PO Q8H PRN #90 cap 01/26/19 06/15/19 hydromorphone 2 mg PO Q4H PRN #6 tab 05/17/19 06/15/19 magnesium oxide 400 mg PO DAILY #10 tab 06/11/19 06/15/19 prochlorperazine maleate 5 - 10 mg PO Q8H PRN PRN #30 tab 06/11/19 06/15/19 [Compazine] Previous Rx's Medication Instructions Recorded Narcan 4 mg NS PRN #2 spray 09/27/17 omeprazole 40 mg PO BID #60 tab-cap 03/31/18 ibuprofen 600 mg PO TID PRN #90 tab 11/30/18 acetaminophen 500 mg capsule 1,000 mg PO Q8H PRN #90 cap 01/26/19 hydromorphone 2 mg PO Q4H PRN #6 tab 05/17/19 magnesium oxide 400 mg PO DAILY #10 tab 06/11/19 prochlorperazine maleate 5 - 10 mg PO Q8H PRN PRN #30 tab 06/11/19 [Compazine] Allergies Allergy/AdvReac Type Severity Reaction Status Date / Time adhesive Allergy Intermediate gets red Verified 06/26/19 13:35 and welts up codeine Allergy Intermediate Itching Unverified 06/26/19 13:35 oxycodone HCl [From Percocet] Allergy Intermediate Anaphylaxsi Unverified 06/26/19 13:35 s morphine Allergy Itching Verified 06/26/19 13:35 General CRISTI: 3 Review of Systems Constitutional Reports as per HPI, Denies chills, Reports fatigue, Denies fever(s), Denies frequent falls, Reports headache(s), Denies snoring and Denies weakness Eyes Reports as per HPI, Denies blurry vision, Denies change in vision and Reports photophobia ENT Denies vertigo, Reports headache(s) and Denies neck pain Cardiovascular Reports as per HPI, Denies chest pain, Denies lightheadedness, Denies radiating jaw, neck or arm pain, Denies dyspnea and Denies dyspnea on exertion Respiratory Reports as per HPI, Denies chest congestion, Denies cough, Denies dyspnea, Denies dyspnea on exertion, Denies snoring, Denies stridor and Denies wheezing Gastrointestinal Reports as per HPI, Denies abdominal pain, Denies change in bowel habits, Reports nausea, Reports vomiting and Denies hematemesis Musculoskeletal Reports as per HPI, Denies back pain, Denies myalgias, Denies muscle cramps, Denies neck pain and Denies numbness Integumentary/Breasts Reports as per HPI and Denies rash Neurologic Reports as per HPI, Denies abnormal movements, Denies abnormal speech, Denies behavioral changes, Denies confusion, Denies vertigo, Denies frequent falls, Reports headache(s), Denies focal weakness, Denies numbness, Denies sensory deficit and Denies weakness Psychiatric Denies behavioral changes and Denies confusion Endocrine Reports fatigue Allergic/Immunologic Denies wheezing PFSH Medical History Anxiety Asthma Chronic pain Cigarette smoker Depression Dysphagia Family history of colon cancer GERD (gastroesophageal reflux disease) Hyperthyroidism Intertrigo Migraine Obese Obstructive sleep apnea Postmenopausal bleeding PTSD (post-traumatic stress disorder) Syncope Thyroid nodule Vertigo Surgical History Colonoscopy - MAC (02/14/18) EGD - MAC (02/14/18) Replacement of total knee joint Rotator Cuff Repair Family History Father Rheumatoid arthritis Brother Rheumatoid arthritis Social History Smoking/Tobacco Use Status: Current every day Tobacco Type: cigarettes Tobacco: How many years used: 25 Alcohol Intake: current Alcohol Intake frequency: holidays/special occasions only Alcohol type: wine Drug use: Occasionally Substance use type: marijuana Details: marijuana couple days since I smoked Do you feel safe at home: Yes Do you feel safe in your relationship?: Yes Additional Social history: no relationship, thats done Exam Const General: cooperative, healthy appearing, uncomfortable, no acute distress, well developed and well groomed Nutritional Appearance: well nourished and overweight Orientation: alert, awake and oriented x3 HENMT Head: normal to inspection, no palpable skull fracture, normocephalic and atraumatic Ears: hearing grossly normal bilaterally, external ears normal and TM's normal bilaterally General nose exam: external nose normal Mouth: oral mucosae normal and moist mucous membranes Throat: posterior oropharynx normal Eyes General: appearance normal, both eyes and all related structures Alignment and Position: alignment normal Periorbital: periorbital findings normal Eyelids: eyelids normal Sclera: sclerae normal Cornea: corneas normal Pupils: PERRL EOM: EOM intact bilaterally Neck Neck: normal visual inspection, full ROM, no lymphadenopathy and no meningeal signs Resp Effort & Inspection: normal respiratory effort, able to speak in complete sentences and no respiratory distress Auscultation: clear to auscultation bilaterally, no rales, no rhonchi and no wheezes Cardio Rate: regular rate Rhythm: regular rhythm Heart Sounds: S1 normal and S2 normal GI Inspection: normal to inspection and non-distended Palpation: soft, no hepatosplenomegaly, not firm, no guarding, not rigid and nontender Percussion: normal to percussion Auscultation: normal bowel sounds Back/Spine/Pelvis Cervical Spine: normal cervical lordosis and cervical ROM normal Skin General skin exam: no rashes or lesions noted Neuro General: alert, awake and oriented x3 Cranial Nerves: CN's II-XI intact bilaterally Cognition: normal cognition Speech: speech normal Gait: normal gait Motor: muscle tone normal throughout, strength 5/5 throughout, no pronator drift, no movement abnormalities noted and no fasciculations Sensory Exam: no sensory deficits noted Coordination: [id number] test normal and [id number] test normal Extrem General: normal to inspection, normal capillary refill, no pedal edema and no calf tenderness Psych Appearance: grossly normal and well kempt Mental Status: mental status grossly normal Speech and Movement: speech and movement normal
[2019-06-26] MEDS: Dexamethasone 10 MG/ML VIAL IVP (14:00)
[2019-06-26] MEDS: Ketorolac 30 MG/ML VIAL IVP (14:00)
[2019-06-26] MEDS: Normal Saline 1,000 ML 1000 ML IV (14:01)
[2019-06-26 14:41] VITALS: BP 120/73; PULSE 68; RESP 14; TEMP 36.5; O2SAT 98
== END 2019-06-26 14:40 | disposition home or self-care (01) ==
PROVIDERS: Emergency Provider Physician Assistant; PCP Nurse Practitioner Family
DX: G43.909 Migraine, unspecified, not intractable, without status migrainosus (principal)
CPT/HCPCS: 96361; 96372; 96374; 96375; 99284; J1100; J1885

== ENCOUNTER 2019-07-06 10:51 | Outpatient (REF) | payer MEDICARE, SELFPAY ==
[2019-07-06 21:51] LABS: NT-proBNP 13 pg/mL
[2019-07-09 11:03] LABS: Hepatitis A Antibody IgM Negative (NEGAT); Hepatitis B Core Antibody Negative (NEGAT); Hepatitis B surface Ag Negative (NEGAT); Hepatitis C Ab w Rflx HCV PCR Negative (NEGAT)
== END 2019-07-06 11:11 ==
LOC: NCHCN 10:51
PROVIDERS: PCP Nurse Practitioner Family; Visit Provider Nurse Practitioner Family
DX: K76.0 Fatty (change of) liver, not elsewhere classified (principal); K11.7 Disturbances of salivary secretion; L02.92 Furuncle, unspecified; I25.41 Coronary artery aneurysm; R07.9 Chest pain, unspecified; K30 Functional dyspepsia; R73.01 Impaired fasting glucose; R53.83 Other fatigue
CPT/HCPCS: 86704; 86709; 86803; 87340; 83519; 83880

== ENCOUNTER → 2019-07-13 09:24 | Outpatient (BNVA) | payer MEDICARE, MEDICAID, SELFPAY | PROVIDERS: PCP Nurse Practitioner Family; Referring Provider Nurse Practitioner Family; Visit Provider Student in an Organized Health Care Education/Training Program | DX: M25.562 Pain in left knee (principal); Z98.890 Other specified postprocedural states ==

== ENCOUNTER 2019-07-16 17:19 | Emergency (ER) | payer MEDICARE, MEDICAID, SELFPAY ==
[2019-07-16 17:32] VITALS: BP 110/72; PULSE 87; RESP 18; TEMP 37.1; O2SAT 97
[2019-07-16] MEDS: diazePAM 5 MG TAB PO (18:44)
[2019-07-16] MEDS: Acetaminophen 325 MG TAB 650 MG PO (18:45)
[2019-07-16] MEDS: Ketorolac 30 MG/ML VIAL IM (18:47)
--- NOTE | 2019-07-16 20:29 | NUR.NOTE ---
pt ambulated to the bathroom . she had difficulty getting off of the stretcher Nursing Note:
--- NOTE | 2019-07-16 20:31 | W.ED.GENAD ---
Discharge Plan Disposition Patient Disposition: HOME Discharge Details Chief Complaint: Nk/Back Pain Clinical Impression: Acute low back pain Primary Care Provider: Lucy Courtney ED Provider: Keith Zuleta Home Meds and New Rx's Prescriptions: New prednisone 20 mg tablet 40 mg PO DAILY Qty: 8 RF: 0 Continued dihydroergotamine [Migranal] 1 ML spray,non-aerosol 1 ml NS PRN RF: 0 cetirizine [Zyrtec] 10 MG tablet 10 mg PO DAILY RF: 0 ondansetron HCl [Zofran] 4 MG tablet 4 mg PO PRN RF: 0 meclizine 12.5 MG tablet 12.5 mg PO BID RF: 0 polyethylene glycol 3350(bulk) 1 GM granules 17 gm PO DAILY PRNQty: 527 RF: 3 omeprazole 40 MG capsule,delayed release(DR/EC) 40 mg PO BID Qty: 60 RF: 3 acetaminophen 500 mg capsule 1,000 mg PO Q8H PRN (Reason: pain) Qty: 90 RF: 0 venlafaxine 75 MG tablet 225 mg PO DAILY RF: 0 topiramate 100 MG tablet 100 mg PO BID RF: 0 magnesium oxide 400 mg (241.3 mg magnesium) Tablet 400 mg PO DAILY Qty: 10 RF: 0 prochlorperazine maleate [Compazine] 5 mg tablet 5 - 10 mg PO Q8H PRN PRN (Reason: migraine) Qty: 30 RF: 1 acetaminophen [Tylenol Extra Strength] 500 mg Tablet 1,000 mg PO PRN PRNRF: 0 ibuprofen 400 mg Tablet 400 mg PO PRN PRNRF: 0 Atrovent HFA 1 PUFF HFA aerosol inhaler 1 puff Inhalation Q8H PRNRF: 0 albuterol sulfate [Proventil HFA] 200 PUFF HFA aerosol inhaler 2 puff Inhalation PRN PRNRF: 0 Narcan 4 MG spray,non-aerosol 4 mg NS PRN Qty: 2 RF: 0 nicotine 14 mg/24 hr Patch 24 Hour 1 patch TRANSDERMAL DAILY RF: 0 clonazepam 1 mg Tablet 1 mg PO TID PRNRF: 0 nicotine 7 mg/24 hr Patch 24 Hour 1 patch TRANSDERMAL Q24H RF: 0 gabapentin 100 mg Capsule 100 mg PO DAILY RF: 0 Discharge Instructions Instructions: Acute Low Back Pain (ED) Additional Instructions: Please take ibuprofen over the counter. Take 600mg by mouth every 6 hours as needed for pain. Please take acetaminophen (tylenol) - 650mg every 6 hours by mouth as needed for pain. Please contact your primary care physician to arrange follow-up. Return to the ER for any worsening or new concerning symptoms. Referrals: Lucy Courtney [Primary Care Provider] - Medical Decision Making 20:35 --49-year-old female here with low back pain for the past 2-3 days. Patient is neurologically intact with no signs of cauda equina. No trauma. Suspect disc herniation versus spasm. Patient was given Valium 5 mg orally and Toradol 30 mg IV. She was reassessed and noted to be sleeping comfortably. Upon waking she was noted to have recurrent back pain. Patient notes adverse reaction to all opioids other than Dilaudid. Patient apparently is been on Dilaudid orally in the past. I will give a dose Dilaudid 1 mg IM and prednisone 40mg. 21:00 --patient reassessed and feels better -requesting discharge. Will prescribe short course of prednisone burst. Usual customary discharge instructions were provided. HPI General Mode of arrival: ambulatory. Date/Time Provider Initiated Documentation: 07/16/19 17:23. Limitations to Documentation: no limitations. Information obtained by: patient. HPI Narrative: 49-year-old female with history of multiple medical problems here with low back pain. Pain started a low back 2 to 3 days ago and has persisted. Progressively worse. No traumatic injury. No associated numbness or tingling. No bowel or bladder dysfunction. Pain is described as a spasm and localized to low back left greater than right. Patient has tried low-dose Tylenol and ibuprofen, last received this morning without significant improvement. Related Data Home Medications Medication Instructions Recorded Confirmed venlafaxine 225 mg PO DAILY 05/16/16 07/16/19 topiramate 100 mg PO BID 06/18/16 07/16/19 dihydroergotamine [Migranal] 1 ml NS PRN script 07/07/16 07/16/19 Atrovent HFA 1 puff INHALATION Q8H PRN 12/05/16 07/16/19 albuterol sulfate [Proventil HFA] 2 puff INHALATION PRN PRN 02/15/17 07/16/19 Narcan 4 mg NS PRN #2 spray 09/27/17 07/16/19 cetirizine [Zyrtec] 10 mg PO DAILY tab-cap 01/31/18 07/16/19 meclizine 12.5 mg PO BID 01/31/18 07/16/19 ondansetron HCl [Zofran] 4 mg PO PRN 01/31/18 07/16/19 polyethylene glycol 3350(bulk) 17 gm PO DAILY PRN #527 gm 01/31/18 07/16/19 omeprazole 40 mg PO BID #60 tab-cap 03/31/18 07/16/19 clonazepam 1 mg PO TID PRN 11/29/18 07/16/19 gabapentin 100 mg PO DAILY 11/29/18 07/16/19 nicotine 1 patch TRANSDERMAL DAILY 11/29/18 07/16/19 nicotine 1 patch TRANSDERMAL Q24H 11/29/18 07/16/19 acetaminophen 500 mg capsule 1,000 mg PO Q8H PRN #90 cap 01/26/19 07/16/19 magnesium oxide 400 mg PO DAILY #10 tab 06/11/19 07/16/19 prochlorperazine maleate 5 - 10 mg PO Q8H PRN PRN #30 tab 06/11/19 07/16/19 [Compazine] acetaminophen [Tylenol Extra 1,000 mg PO PRN PRN 07/16/19 07/16/19 Strength] ibuprofen 400 mg PO PRN PRN 07/16/19 07/16/19 prednisone 40 mg PO DAILY #8 tab 07/16/19 Previous Rx's Medication Instructions Recorded Narcan 4 mg NS PRN #2 spray 09/27/17 omeprazole 40 mg PO BID #60 tab-cap 03/31/18 acetaminophen 500 mg capsule 1,000 mg PO Q8H PRN #90 cap 01/26/19 magnesium oxide 400 mg PO DAILY #10 tab 06/11/19 prochlorperazine maleate 5 - 10 mg PO Q8H PRN PRN #30 tab 06/11/19 [Compazine] prednisone 40 mg PO DAILY #8 tab 07/16/19 Allergies Allergy/AdvReac Type Severity Reaction Status Date / Time adhesive Allergy Intermediate gets red Verified 07/16/19 17:40 and welts up codeine Allergy Intermediate Itching Unverified 07/16/19 17:40 oxycodone HCl [From Percocet] Allergy Intermediate Anaphylaxsi Unverified 07/16/19 17:40 s morphine Allergy Itching Verified 07/16/19 17:40 General Stated Complaint: Nk/Back Pain CRISTI: 3 Review of Systems Review of Systems All systems reviewed & are unremarkable except as noted in HPI and below Musculoskeletal Reports as per HPI Neurologic Reports as per HPI [facility] Medical History Anxiety Asthma Chronic pain Cigarette smoker Depression Dysphagia Family history of colon cancer GERD (gastroesophageal reflux disease) Hyperthyroidism Intertrigo Migraine Obese Obstructive sleep apnea Postmenopausal bleeding PTSD (post-traumatic stress disorder) Syncope Thyroid nodule Vertigo Surgical History Colonoscopy - MAC (02/14/18) EGD - [facility] (02/14/18) Replacement of total knee joint Rotator Cuff Repair Family History Father Rheumatoid arthritis Brother Rheumatoid arthritis Social History Smoking/Tobacco Use Status: Current every day Tobacco Type: cigarettes Tobacco: How many years used: 25 Alcohol Intake: current Alcohol Intake frequency: holidays/special occasions only Alcohol type: wine Drug use: Occasionally Substance use type: marijuana Details: marijuana couple days since I smoked Do you feel safe at home: Yes Do you feel safe in your relationship?: Yes Additional Social history: no relationship, thats done Exam Const General: cooperative and no acute distress HENMT Head: normocephalic and atraumatic Mouth: moist mucous membranes Eyes Conjunctivae: normal conjunctivae Sclera: normal sclerae Neck Neck: trachea midline and supple Resp Auscultation: clear to auscultation bilaterally, no rales, no rhonchi and no wheezes Cardio Jugular venous pressure: no JVD Rate: regular rate and not tachycardic Rhythm: regular rhythm GI Palpation: soft, not firm, no guarding, no masses, not rigid and nontender Skin General skin exam: no rashes or lesions noted Neuro General: alert, awake, oriented x3 and tone normal Motor: muscle tone normal throughout and strength 5/5 throughout Sensory Exam: no sensory deficits noted and other (No saddle anesthesia) Extrem General: no edema Psych Appearance: grossly normal Mental Status: mental status grossly normal Course Vital Signs Temperature 37.1 C 07/16/19 17:32 Pulse 87 07/16/19 17:32 Respiratory Rate 18 07/16/19 17:32 Blood Pressure 110/72 07/16/19 17:32 Pulse Oximetry 97 07/16/19 17:32 Temperature 37.1 C 07/16/19 17:32 Temperature Source Temporal Artery Scan 07/16/19 17:32 Pulse 87 07/16/19 17:32 Respiratory Rate 18 07/16/19 17:32 Respiratory Effort 07/16/19 17:38 Blood Pressure 110/72 07/16/19 17:32 Blood Pressure Position Supine 07/16/19 17:32 Pulse Oximetry 97 07/16/19 17:32 Oxygen Delivery Method Room Air 07/16/19 17:32 Oxygen Flow Rate 0 07/16/19 17:32 Pain Level 10 07/16/19 18:47
[2019-07-16] MEDS: HYDROmorphone 2 MG/ML VIAL 1 MG IM (20:43)
[2019-07-16] MEDS: predniSONE 20 MG TAB 40 MG PO (20:44)
[2019-07-16 21:04] VITALS: BP 132/90; PULSE 64; RESP 18; TEMP 35.8; O2SAT 97
[2019-07-16 21:14] VITALS: BP 132/90; PULSE 64; RESP 18; O2SAT 97
== END 2019-07-16 21:14 | disposition home or self-care (01) ==
PROVIDERS: Emergency Provider Student in an Organized Health Care Education/Training Program; PCP Nurse Practitioner Family
DX: M54.5 Low back pain (principal)
CPT/HCPCS: 96372; 99284; J1885; J7512

== ENCOUNTER 2019-07-30 16:05 | Observation (INO) | payer MEDICARE, MEDICAID, SELFPAY ==
[2019-07-30 16:06] VITALS: BP 136/71; PULSE 91; RESP 18; TEMP 36.6; O2SAT 98
--- NOTE | 2019-07-30 16:23 | ED.GENADUL_ITS ---
Discharge Plan Disposition Patient Disposition: [facility] INPATIENT Condition: Improving Discharge Details Chief Complaint: Nk/Back Pain Clinical Impression: Back pain Admit Date/Time: 07/30/19 22:25 Admit Provider: Dalton Hwang Attending Provider: Dalton Hwang Primary Care Provider: Lucy Courtney ED Provider: Breann Hudson Medical Decision Making Patient is a 49-year-old female presents today with chief complaint of back pain. Patient reports that the back pain is been present for approximately last month. She was seen here earlier last month at which time she was diagnosed with bulging disc. She reports that since then the pain has progressively increased. States the pain came on gradually, denies any trauma. Was seen subsequently by her primary care who continued prednisone for longer. She reports that despite the steroids, the pain is continued to increase. She was seen by physical therapy 3 days ago. States that she did tolerate physical therapy well but it was over the past 2 days the pain is greatly exacerbated. She denies any altered sensation. Denies any weakness. Denies any fevers or chills. No recent travel. No rash. States that she has had back pain historically but this is worse than typical. Denies abdominal pain. No nausea or vomiting. Reports that she is trying to actively lose weight. Has been using Tylenol and ibuprofen but is not does result in several hours. On exam, the patient is unwilling to move, she is laying in a supine position. She did ambulate in unassisted. She appears nontoxic. Notably obese. She has to have assistance with logrolling for evaluation. Does not want to sit up discuss increased pain. On exam, she indicates the low thoracic spine is area of discomfort but states that this radiates to the entirety of the back and causes spasm. She is no midline tenderness or paraspinal tenderness with palpation. No rash. She will not move to assess range of motion. No difficulty with movement of the cervical spine. No saddle paresthesias. She has good strength in her lower extremities. She has had multiple issues with bilateral knees making reflexes here difficult but Babinski is normal bilaterally. I see no evidence at this time for cauda equina. Plan to treat with seems to be primarily spasmodic driven back pain with Tylenol, Toradol, Valium and Lidoderm patch. Discussed this plan the patient was in agreement. Patient reports the pain is now an 8 out of 10 but this is insufficient and she continues to not want to move. Is requesting further analgesics. We will augment this with oral Dilaudid. Patient has allergies to codeine, oxycodone or morphine but reports that she cannot Dilaudid well. Patient does not feel any improvement after PO Dilaudid. Patient will be given Dilaudid IM and oral Flexeril. Patient's pain remains an 8 out of 10, continues to not improve despite the above regimen. This point, no loss for further interventions. We will begin IV, obtain labs and imaging to see if there may be more than expected. Again, the patient did not have a sudden onset of pain and she denies any trauma, I have low suspicion for infection. She has not been having any fevers, no findings to suggest infection. She has had very similar pain historically but the severity and the longevity of her pain has just been more than her previous discomfort. No saddle paresthesias to suggest cauda equina. She seems to be moving about the room and is often resting watching movies on her phone. However, she does appear uncomfortable with movements and wants to remain in a sedentary position. Patient reports that she is now diffusely itchy. I do note that multiple narcotics cause itching, she is ademant that this is not from the Dilaudid. I remain cncerned for this and have cancelled the IV Dilaudid order for the time being. She is found to have allergic reaction, advised that we will not be giving further narcotics at this time. Patient going for CT. Itching subsided after IV Benadryl FINDINGS: Vertebrae: No acute fracture. Normal alignment. Discs/Spinal canal/Neural foramina: No spinal stenosis. Soft tissues: Unremarkable. Thyroid: Left thyroid nodule measures 2.3 cm. IMPRESSION: No acute finding. FINDINGS: Vertebrae: No acute fracture. Normal alignment. Discs/Spinal canal/Neural foramina: No spinal stenosis. No neural foraminal narrowing. Moderate bulge at L5-S1. Kidneys and ureters: Bilateral simple renal cysts measure up to 3.1 cm. Soft tissues: Unremarkable. IMPRESSION: No acute finding. Moderate bulge at L5-S1 Discussed these findings with the patient. While she reports that she does have pain in the lumbar area consistent with the moderate bulging disc, her primary area of pain was much superior to this. Patient I discussed with her treatment options. No significant abnormalities to her laboratory values. Urinalysis does not suggest urinary tract infection. Postvoid residual was 0. Discussed disposition options with the patient. Again, I do not feel that she should continue with any narcotic treatment. She continues to report that she is an 8 out of 10 does not feel she is able to go home at this point. Will consult with hospitalist regarding admission with continued pain management. Consult Dr. ge and who agrees to admission for continued pain management. HPI General Mode of arrival: ambulatory . Date/Time Provider Initiated Documentation: 07/30/19 16:23 . Limitations to Documentation: no limitations . Information obtained by: patient and RN notes reviewed . History of Present Illness 49 year old F presents to the emergency department with the chief complaint of back pain, described as severe and similar to prior episodes, with intensity rated at >10. Quality is described as stabbing (stabbing pain thoracic with spasms), and is localized to the back. Patient distal (into BLE). Patient started experiencing this month(s) (1) and it has been constant. Immobilization improves symptom(s), Movement worsens symptoms . Patient notes no other symptoms.; denies chest pain, cough, diaphoresis, fever/chills, headaches, loss of appetite, nausea/vomiting, rash, shortness of breath and weakness. Patient did receive the following treatments prior to arrival, none Related Data Home Medications Medication Instructions Recorded Confirmed venlafaxine 225 mg PO DAILY 05/16/16 07/30/19 topiramate 100 mg PO BID 06/18/16 07/30/19 dihydroergotamine [Migranal] 1 ml NS PRN script 07/07/16 07/30/19 Atrovent HFA 1 puff INHALATION Q8H PRN 12/05/16 07/30/19 albuterol sulfate [Proventil HFA] 2 puff INHALATION PRN PRN 02/15/17 07/30/19 Narcan 4 mg NS PRN #2 spray 09/27/17 07/30/19 cetirizine [Zyrtec] 10 mg PO DAILY tab-cap 01/31/18 07/30/19 meclizine 12.5 mg PO BID 01/31/18 07/30/19 ondansetron HCl [Zofran] 4 mg PO PRN 01/31/18 07/30/19 omeprazole 40 mg PO BID #60 tab-cap 03/31/18 07/30/19 clonazepam 1 mg PO TID PRN 11/29/18 07/30/19 gabapentin 100 mg PO DAILY 11/29/18 07/30/19 prochlorperazine maleate 5 - 10 mg PO Q8H PRN PRN #30 tab 06/11/19 07/30/19 [Compazine] acetaminophen [Tylenol Extra 1,000 mg PO PRN PRN 07/16/19 07/30/19 Strength] ibuprofen 800 mg PO Q8H PRN 07/16/19 07/30/19 Previous Rx's Medication Instructions Recorded Narcan 4 mg NS PRN #2 spray 09/27/17 omeprazole 40 mg PO BID #60 tab-cap 03/31/18 prochlorperazine maleate 5 - 10 mg PO Q8H PRN PRN #30 tab 06/11/19 [Compazine] Allergies Allergy/AdvReac Type Severity Reaction Status Date / Time adhesive Allergy Intermediate gets red Verified 07/16/19 17:40 and welts up codeine Allergy Intermediate Itching Unverified 07/16/19 17:40 oxycodone HCl [From Percocet] Allergy Intermediate Anaphylaxsi Unverified 07/16/19 17:40 s morphine Allergy Itching Verified 07/16/19 17:40 General Stated Complaint: Nk/Back Pain CRISTI: 3 Review of Systems Constitutional Reports as per HPI, Denies chills, Denies fever(s), Denies headache(s) and Denies weakness ENT Denies headache(s) Cardiovascular Reports as per HPI Respiratory Reports as per HPI and Denies cough Musculoskeletal Reports as per HPI and Denies tingling Integumentary/Breasts Reports as per HPI, Denies rash and Denies wounds Neurologic Reports as per HPI, Denies headache(s), Denies tingling, Denies paresthesias and Denies weakness PFSH Medical History Anxiety Asthma Chronic pain Cigarette smoker Depression Dysphagia Family history of colon cancer GERD (gastroesophageal reflux disease) Hyperthyroidism Intertrigo Migraine Obese Obstructive sleep apnea No CPAP at this time Postmenopausal bleeding PTSD (post-traumatic stress disorder) Syncope Thyroid nodule Vertigo Social History Smoking/Tobacco Use Status: Current every day Tobacco Type: cigarettes Tobacco: How many years used: 25 Alcohol Intake: current Alcohol Intake frequency: holidays/special occasions only Alcohol type: wine Drug use: Occasionally Substance use type: marijuana Details: marijuana couple days since I smoked Do you feel safe at home: Yes Do you feel safe in your relationship?: Yes Additional Social history: no relationship, thats done Exam Const General: cooperative, healthy appearing, comfortable, no acute distress, well developed and well groomed Nutritional Appearance: well nourished and obese Orientation: alert, awake and oriented x3 Resp Effort & Inspection: normal respiratory effort, able to speak in complete sentences and no respiratory distress Auscultation: clear to auscultation bilaterally, no rales, no rhonchi and no wheezes Cardio Rate: regular rate Rhythm: regular rhythm Heart Sounds: S1 normal and S2 normal Back/Spine/Pelvis Back: no CVA tenderness Cervical Spine: normal cervical lordosis and cervical ROM normal Thoracic/Lumbar Spine: thoracic and lumbar spine normal to inspection, No surgical scar(s) present, No thoraco-lumbar ROM normal (patient will not move her back), No straight leg raise negative bilaterally (positive on left side), No mass, No pain with thoraco-lumbar ROM, No paraspinal tenderness, thoraco- lumbar ROM limited, thoraco-lumbar spasm, No thoracic spinal tenderness (no midline tenderness, on pain with palpation), No lumbar spinal tenderness and straight leg raise positive Pelvis: no pain with anterior-posterior compression and no pain with lateral compression Sacroiliac joints: bilaterally nontender Skin General skin exam: no rashes or lesions noted Lesions: no lesions Rashes: no rashes Trauma: no lacerations or abrasions Neuro General: alert, awake, gait normal, tone normal, moves all extremities and no meningeal signs Cognition: normal cognition Speech: speech normal Gait: normal gait Motor: muscle tone normal throughout, strength 5/5 throughout, no pronator drift, no movement abnormalities noted and no fasciculations Sensory Exam: no sensory deficits noted (no saddle paresthesias) Plantar Reflexes: Downgoing: bilateral Extrem General: normal to inspection, full ROM, normal capillary refill, no joint enlargement, no clubbing, cyanosis or edema, no pedal edema, no calf tenderness and normal gait Psych Appearance: grossly normal and well kempt Mental Status: mental status grossly normal Speech and Movement: speech and movement normal Course Vital Signs Temperature 36.6 C 07/30/19 16:06 Pulse 91 H 07/30/19 16:06 Respiratory Rate 18 07/30/19 16:06 Blood Pressure 136/71 07/30/19 16:06 Pulse Oximetry 98 07/30/19 16:06 Temperature 36.6 C 07/30/19 16:06 Temperature Source Skin 07/30/19 16:06 Pulse 91 H 07/30/19 16:06 Respiratory Rate 18 07/30/19 16:06 Respiratory Effort 07/30/19 16:14 Blood Pressure 136/71 07/30/19 16:06 Blood Pressure Position Sitting 07/30/19 16:06 Pulse Oximetry 98 07/30/19 16:06 Oxygen Delivery Method Room Air 07/30/19 16:06 Oxygen Flow Rate 0 07/30/19 16:06 Pain Level 10 07/30/19 16:06 Comment 07/30/19 16:06
[2019-07-30] MEDS: Ketorolac 60 MG/2 ML VIAL IM (17:03)
[2019-07-30] MEDS: diazePAM 5 MG TAB PO (17:04)
[2019-07-30] MEDS: Acetaminophen 325 MG TAB 650 MG PO (17:05)
[2019-07-30] MEDS: Lidocaine 5% Patch 1 PATCH TP (17:06)
[2019-07-30] MEDS: HYDROmorphone 2 MG TAB PO (18:19)
[2019-07-30] MEDS: Cyclobenzaprine 10 MG TAB PO (19:21)
[2019-07-30] MEDS: HYDROmorphone 2 MG/ML VIAL IM (19:22)
--- NOTE | 2019-07-30 20:06 | DI.CT_ITS ---
SYMPTOM/DIAGNOSIS: SEVERE PAIN CT THORACIC SPINE: There is no evidence of acute fracture. There are end plate osteophytes throughout projecting anteriorly. There is no central canal stenosis or significant neural foraminal narrowing. IMPRESSION: Negative CT of the thoracic spine. CT LUMBAR SPINE: Mild disc bulging is seen at L3-4 and moderate disc bulging is seen at L4-5 The disc spaces are well maintained in height. There are minimal end plate osteophytes which project anteriorly. There are mild facet degenerative changes compared. No spondylolysis or spondylolisthesis seen. IMPRESSION: Mild degenerative changes. There is mild to moderate disc bulging at L3-4 and L4-5.
[2019-07-30] MEDS: Normal Saline Flush 10 ML SYR IVP (20:40)
[2019-07-30] MEDS: Normal Saline 1,000 ML 1000 ML IV (20:40)
[2019-07-30] MEDS: diphenhydrAMINE 50 MG/ML VIAL IVP (20:45)
[2019-07-30 20:56] LABS: Abs Immature Grans 0.02 k/cumm (0.0-0.09); Absolute Basophil Count 0.01 k/cumm (0.0-0.2); Absolute Lymphocyte Count 3.83 k/cumm (1.2-3.4); Absolute Monocyte Count 0.59 k/cumm (0.11-0.7); Absolute Neutrophil Count 6.11 k/cumm (1.2-6.7); Basophils % 0.1; HCT 42.1 % (36.0-46.0); HGB 13.7 g/dL (12.0-15.5); Immature Grans % 0.2; Lymphocytes % 36.3; Mean Corp. HGB Concentration 32.5 g/dL (32.0-36.0); Mean Corpuscular Hemoglobin 29.5 pg (27.0-33.0); Mean Corpuscular Volume 90.5 fL (80-95); Mean Platelet Volume 9.8 fL (8.0-11.0); Monocytes % 5.6; Neutrophils % 57.8; Platelet Count 300 x1000/uL (130-400); RBC 4.65 m/cumm (4.00-5.20); RBC Distribution Width 14.8 % (11.7-14.6); White Blood Cell Count 10.56 k/cumm (4.4-10.8)
[2019-07-30 21:08] VITALS: BP 106/76; PULSE 73; RESP 16; O2SAT 93
[2019-07-30 21:23] LABS: ALT 23 U/L (14-59); AST 19 U/L (15-37); Albumin 3.2 g/dL (3.4-5.0); Alkaline Phosphatase 91 U/L (46-116); Anion Gap 9.9 mmol/L (3-11); BUN 16 mg/dL (7-18); Bilirubin, Total 0.7 mg/dL (0.2-1.0); CO2 23.1 mmol/L (21.0-32.0); CREATININE 0.93 mg/dL (0.55-1.02); Calcium 8.9 mg/dL (8.5-10.1); Chloride 106 mmol/L (98-107); Glucose 94 mg/dL (70-100); Sodium 139 mmol/L (136-145); Total Protein 7.1 g/dL (6.4-8.2)
--- NOTE | 2019-07-30 21:39 | DI.VRAD_ITS ---
EXAM: CT Thoracic Spine Without Contrast EXAM DATE/TIME: 07/30/2019 8:07 PM CLINICAL HISTORY: 49 years old, female; Low back pain; Pain in thoracic spine; With radiculopathy; Bilateral; Patient HX: Per PT: Severe pain, radiating into lower extremities TECHNIQUE: Imaging protocol: Computed tomography images of the thoracic spine without contrast. COMPARISON: No relevant prior studies available. FINDINGS: Vertebrae: No acute fracture. Normal alignment. Discs/Spinal canal/Neural foramina: No spinal stenosis. Soft tissues: Unremarkable. Thyroid: Left thyroid nodule measures 2.3 cm. IMPRESSION: No acute finding. EXAM: CT Lumbar Spine Without Contrast EXAM DATE/TIME: 07/30/2019 8:07 PM CLINICAL HISTORY: 49 years old, female; Low back pain; Pain in thoracic spine; With radiculopathy; Bilateral; Patient HX: Per PT: Severe pain, radiating into lower extremities TECHNIQUE: Imaging protocol: Computed tomography images of the lumbar spine without contrast. COMPARISON: No relevant prior studies available. FINDINGS: Vertebrae: No acute fracture. Normal alignment. Discs/Spinal canal/Neural foramina: No spinal stenosis. No neural foraminal narrowing. Moderate bulge at L5-S1. Kidneys and ureters: Bilateral simple renal cysts measure up to 3.1 cm. Soft tissues: Unremarkable. IMPRESSION: No acute finding. Moderate bulge at L5-S1 Dictated and Authenticated by: Fariba Ferris MD. Ordering:LAURA Crain MD
--- NOTE | 2019-07-30 21:43 | NUR.NOTE ---
Nursing Note: voided about 100 cc 0 residual.
[2019-07-30 21:45] LABS: Bilirubin Small (Negative); Blood Small (Negative); Clarity Sl Cloudy (Clear); Glucose Negative (Negative); Ketones Negative (Negative); Leukocyte Esterase Negative (Negative); Nitrite Negative (Negative); Specific Gravity >= 1.030 (1.005-1.025); Urobilinogen 0.2 EU/dL (Up TO 0.2); pH 5.5 (5-8)
[2019-07-30 21:55] LABS: Bacteria Rare HPF (Negative); C & S Indicated? No; Casts Negative LPF (Negative); Crystals Few Amorphous HPF (Negative); Epithelial Cells Many HPF (Negative); Mucus Negative (Negative); WBC 0-2 HPF (0-5)
[2019-07-30 23:00] VITALS: BP 95/63; PULSE 68; RESP 16; TEMP 35; O2SAT 97
[2019-07-30 23:02] VITALS: BP 106/76; PULSE 73; RESP 16; O2SAT 93
--- NOTE | 2019-07-30 23:58 | W.PM.HP.N ---
Date of service: 07/30/19 Time of Service: 23:58 Assessment and Plan (1) Lumbar degenerative disc disease: Current visit: Yes Status: Acute iv corticosteroids, oral muscle relaxants (Robaxin) and trial of iv fentanyl for severe pain not controlled by Toradol and consultation w/ physical therapy to try to improve her ambulation. (2) Chronic low back pain: Current visit: Yes Status: Acute Qualifiers: Back pain laterality: left Sciatica laterality: sciatica of left side Sciatica presence: with sciatica Qualified Code(s): M54.42 - Lumbago with sciatica, left side; G89.29 - Other chronic pain History of Present Illness Chief Complaint: back pain Narrative: 49 yr old female w/ hx of obesity, GERD, migraine headaches, ROLANDA and lower back pains d/t DDD (L5-S1 bulging disc) present for one month who presents w/ exacerbation of her lower back pains w/ radicular pain down her left leg. She says that she began P.T. couple days ago w/ TENS unit, Biofreeze and therapy but despite this and prednisone from her PCP her back pains have not improved. She was evaluated in the ER tonight w/ repeat CT of her thoracic and LS spine. CT of her thoracic spine showed no acute findings of her thoracic spine but demonstrated left thyroid nodule of 2.3 cm which was known from prior workup in May when she was admitted w/ atypical migraine headache and was worked up for possible right ICA aneurysm. Her LS spine CT again confirmed her L5-S1 bulging disc but no herniation. In the ER she was tried on iv toradol, iv valium and iv dilaudid (patient previously had been on oral dilaudid) however her pain could not be controlled adequately although it was brought from a 10 down to an 8 but she still could not ambulate out of the ER department. She denies any bowel or bladder incontinence. She did not have any saddle block type anesthesia or hypoesthesia. She does have a positive straight leg raise on the left per Breann Piburn, P.A. The patient is admitted for pain control of her DDD of her LS spine. Review of Systems Cardiovascular Reports system reviewed and no additional complaints, except as docu Respiratory Reports system reviewed and no additional complaints, except as docu Gastrointestinal Reports bloating, Denies constipation and Denies fecal incontinence Genitourinary Denies urinary incontinence Musculoskeletal Reports as per HPI, Reports back pain, Reports limited range of motion, Reports numbness, Reports radiating pain into limb and Reports tingling Neurologic Denies focal weakness, Reports numbness and Reports tingling FOR[facility]LY [facility] Medical History (Updated 07/31/19 @ 01:11 by Dalton Hwang) Anxiety Asthma Atypical migraine (Acute) Chronic headache (Acute) Chronic low back pain (Acute) Chronic pain Cigarette smoker Depression Dysphagia Family history of colon cancer GERD (gastroesophageal reflux disease) Hyperthyroidism Intertrigo Left lateral epicondylitis (Inactive) s/p debridement 11/30/18 Lumbar degenerative disc disease (Acute) Migraine Migraine headache with aura (Acute) Migraine headache without aura (Acute) Obese Obstructive sleep apnea No CPAP at this time Postmenopausal bleeding PTSD (post-traumatic stress disorder) Syncope Tear of medial meniscus of left knee (Resolved) Aspiration: 04/09/2019; 02/05/19 Depo-Medrol injection: 04/09/2019; 02/05/19 Tendinitis of both rotator cuffs (Inactive 06/30/18) Thyroid nodule TIA (transient ischemic attack) (Inactive) Transient neurologic deficit (Inactive) Vertigo Surgical History (Updated 07/31/19 @ 00:23 by Dalton Hwang) Colonoscopy - MAC (02/14/18) EGD - MAC (02/14/18) Replacement of total knee joint R Rotator Cuff Repair 2x on R, 1 x on L S/P left knee arthroscopy (Inactive) partial medial menisectomy and trochlear chondroplasty DOS: 05/17/19 Aspiration/Injection: 06/15/19 Social History Smoking/Tobacco Use Status: Current every day Tobacco Type: cigarettes Tobacco: How many years used: 25 Alcohol Intake: current Alcohol Intake frequency: holidays/special occasions only Alcohol type: wine Drug use: Occasionally Substance use type: marijuana Details: marijuana couple days since I smoked Do you feel safe at home: Yes Do you feel safe in your relationship?: Yes Additional Social history: no relationship, thats done Meds Home Medications Medication Instructions Recorded Confirmed Type venlafaxine 225 mg PO DAILY 05/16/16 07/30/19 History topiramate 100 mg PO BID 06/18/16 07/30/19 History dihydroergotamine [Migranal] 1 ml NS PRN script 07/07/16 07/30/19 History Atrovent HFA 1 puff INHALATION Q8H PRN 12/05/16 07/30/19 History albuterol sulfate [Proventil HFA] 2 puff INHALATION PRN PRN 02/15/17 07/30/19 History Narcan 4 mg NS PRN #2 spray 09/27/17 07/30/19 Rx cetirizine [Zyrtec] 10 mg PO DAILY tab-cap 01/31/18 07/30/19 History meclizine 12.5 mg PO BID 01/31/18 07/30/19 History ondansetron HCl [Zofran] 4 mg PO PRN 01/31/18 07/30/19 History omeprazole 40 mg PO BID #60 tab-cap 03/31/18 07/30/19 Rx clonazepam 1 mg PO TID PRN 11/29/18 07/30/19 History gabapentin 100 mg PO DAILY 11/29/18 07/30/19 History prochlorperazine maleate 5 - 10 mg PO Q8H PRN PRN #30 tab 06/11/19 07/30/19 Rx [Compazine] acetaminophen [Tylenol Extra 1,000 mg PO PRN PRN 07/16/19 07/30/19 History Strength] ibuprofen 800 mg PO Q8H PRN 07/16/19 07/30/19 History Allergies Allergy/AdvReac Type Severity Reaction Status Date / Time adhesive Allergy Intermediate gets red Verified 07/16/19 17:40 and welts up codeine Allergy Intermediate Itching Unverified 07/16/19 17:40 oxycodone HCl [From Percocet] Allergy Intermediate Anaphylaxsi Unverified 07/16/19 17:40 s morphine Allergy Itching Verified 07/16/19 17:40 Exam Const General: other ( uncomfortable appearing, sitting in recliner chair) Resp Effort & Inspection: normal respiratory effort and able to speak in complete sentences Auscultation: clear to auscultation bilaterally Cardio Jugular venous pressure: no JVD Palpation: normal PMI Rate: regular rate Rhythm: regular rhythm Heart Sounds: S1 normal, S2 normal, normal, physiologic split S2, no gallops, no murmurs and no rubs Pulses: normal peripheral pulses GI Inspection: obesity Palpation: soft and no hepatosplenomegaly Percussion: normal to percussion Auscultation: normal bowel sounds Back/Spine/Pelvis Back: other (unable to perform back exam as patient sitting in chair and too much pain) Neuro General: alert, awake and oriented x3 Cranial Nerves: CN's II-XI intact bilaterally Cognition: normal cognition Speech: speech normal Motor: muscle tone normal throughout, no movement abnormalities noted and no fasciculations Sensory Exam: no sensory deficits noted DTR's: Rt Patellar: 2+, Lt Patellar: 2+, Rt Ankle: 0 and Lt Ankle: 0 Plantar Reflexes: Downgoing: bilateral Extrem General: normal to inspection, normal capillary refill and no clubbing, cyanosis or edema Psych Appearance: grossly normal Mental Status: mental status grossly normal Speech and Movement: speech and movement normal Mood: congruent mood Affect: normal affect Attitude: cooperative Thought Process: normal Thought Content: normal Insight: insight good Judgment: judgment good Results Imaging Imaging Studies: CT of thoracic and lumbosacral spine: EXAM: CT Thoracic Spine Without Contrast EXAM DATE/TIME: 07/30/2019 8:07 PM CLINICAL HISTORY: 49 years old, female; Low back pain; Pain in thoracic spine; With radiculopathy; Bilateral; Patient HX: Per PT: Severe pain, radiating into lower extremities TECHNIQUE: Imaging protocol: Computed tomography images of the thoracic spine without contrast. COMPARISON: No relevant prior studies available. FINDINGS: Vertebrae: No acute fracture. Normal alignment. Discs/Spinal canal/Neural foramina: No spinal stenosis. Soft tissues: Unremarkable. Thyroid: Left thyroid nodule measures 2.3 cm. IMPRESSION: No acute finding. EXAM: CT Lumbar Spine Without Contrast EXAM DATE/TIME: 07/30/2019 8:07 PM CLINICAL HISTORY: 49 years old, female; Low back pain; Pain in thoracic spine; With radiculopathy; Bilateral; Patient HX: Per PT: Severe pain, radiating into lower extremities TECHNIQUE: Imaging protocol: Computed tomography images of the lumbar spine without contrast. COMPARISON: No relevant prior studies available. FINDINGS: Vertebrae: No acute fracture. Normal alignment. Discs/Spinal canal/Neural foramina: No spinal stenosis. No neural foraminal narrowing. Moderate bulge at L5-S1. Kidneys and ureters: Bilateral simple renal cysts measure up to 3.1 cm. Soft tissues: Unremarkable. IMPRESSION: No acute finding. Moderate bulge at L5-S1 Dictated and Authenticated by: Fariba Ferris MD. Labs : 07/30/19 20:40 07/30/19 20:40 Laboratory Results - last 24 hr 07/30/19 07/30/19 07/30/19 20:40 20:40 21:38 WBC 10.56 RBC 4.65 Hgb 13.7 Hct 42.1 MCV 90.5 MCH 29.5 MCHC 32.5 RDW 14.8 H Plt Count 300 MPV 9.8 Immature Gran % 0.2 Neutrophils % 57.8 Lymphocytes % 36.3 Monocytes % 5.6 Eosinophils % 0.0 Basophils % 0.1 Absolute Neutrophils 6.11 Absolute Lymphocytes 3.83 H Absolute Monocytes 0.59 Absolute Eosinophils 0.00 Absolute Basophils 0.01 Sodium 139 Potassium 4.0 Chloride 106 Carbon Dioxide 23.1 Anion Gap 9.9 BUN 16 Creatinine 0.93 Estimated GFR/1.73 m2 >= 60.00 Glucose 94 Calcium 8.9 Total Bilirubin 0.7 AST 19 ALT 23 Alkaline Phosphatase 91 Total Protein 7.1 Albumin 3.2 L Urine Color Yellow Urine Clarity Sl cloudy Urine pH 5.5 Ur Specific [place] >= 1.030 H Urine Protein 30 H Urine Ketones Negative Urine Blood Small H Urine Nitrite Negative Urine Bilirubin Small H Urine Urobilinogen 0.2 Ur Leukocyte Esterase Negative Urine RBC 3-5 H Urine WBC 0-2 Ur Epithelial Cells Many Urine Crystals Few amorphous Urine Bacteria Rare Urine Casts Negative Urine Mucus Negative Ur Culture Indicated? No Urine Glucose Negative Last Vital Signs Temp 35.0 C L 07/30/19 23:00 Pulse 73 07/30/19 23:02 Resp 16 07/30/19 23:02 BP 106/76 07/30/19 23:02 Pulse Ox 93 L 07/30/19 23:02
[2019-07-31] MEDS: Normal Saline Flush 10 ML SYR IVP ×6 (00:44→23:20)
[2019-07-31] MEDS: Ketorolac 30 MG/ML VIAL IVP ×5 (00:44→23:20)
[2019-07-31] MEDS: Methocarbamol 750 MG TAB 1500 MG PO ×5 (00:45→19:37)
--- NOTE | 2019-07-31 00:52 | NUR.NOTE ---
Patient admitted to the med-surg unit from the Er with 3 weeks history of thoracic spine pain. She went to Primary Provider where she was started on oral prednisone. Pt state she started PT last tuesday, but nothing seeming helping with the pain that she is experiencing. She did xray in the ER which is showing moderate bulging in her L5-S1. She state the pain from her back causes radiating pain to her left leg and also causes her to have difficulties passing urine and stool at times. Patient state she prefers sitting up in the chair than going into the bed at this time. She oriented to the room and made comfortable has best as possible.
[2019-07-31] MEDS: methylPREDNISolone SUCC 125 MG VIAL IVP (01:50)
[2019-07-31] MEDS: fentaNYL 100 MCG/2 ML VIAL IVP ×3 (04:19→09:46)
[2019-07-31 04:34] VITALS: BP 118/83; PULSE 74; RESP 18; TEMP 36.2; O2SAT 99
[2019-07-31] MEDS: Enoxaparin 40 MG/0.4 ML SYR SC (05:56)
[2019-07-31 07:04] LABS: Platelet Count 274 x1000/uL (130-400)
[2019-07-31] MEDS: Cetirizine 10 MG TAB PO (07:50)
[2019-07-31] MEDS: Gabapentin 100 MG CAP PO (07:50)
[2019-07-31] MEDS: Omeprazole 20 MG CAPCR 40 MG PO ×2 (07:51→19:36)
[2019-07-31] MEDS: Topiramate 100 MG TAB PO ×2 (07:51→19:37)
[2019-07-31] MEDS: methylPREDNISolone SUCC 125 MG VIAL 80 MG IVP (07:51)
[2019-07-31] MEDS: Venlafaxine 37.5 MG CAPCR 225 MG PO (07:51)
[2019-07-31] MEDS: Docusate Sodium 100 MG CAP PO ×2 (07:53→19:37)
[2019-07-31 08:18] VITALS: BP 114/79; PULSE 87; RESP 18; TEMP 36; O2SAT 96
--- NOTE | 2019-07-31 09:31 | PDOC.CMIN ---
- If Service Date Differs Date of service: 07/31/19 Time of Service: 09:32 Care Management Initial Assess REASON FOR HOSPITALIZATION:: Lumbar degeneratine disc disease PAST MEDICAL HISTORY/PAST SURGICAL HISTORY:: PFSH. Medical History: Anxiety. Asthma. Atypical migraine (Acute). Chronic headache (Acute). Chronic low back pain (Acute). Chronic pain. Cigarette smoker. Depression. Dysphagia. Family history of colon cancer. GERD (gastroesophageal reflux disease). Hyperthyroidism. Intertrigo. Left lateral epicondylitis (Inactive). s/p debridement 11/30/18. Lumbar degenerative disc disease (Acute). Migraine. Migraine headache with aura (Acute). Migraine headache without aura (Acute). Obese. Obstructive sleep apnea. No CPAP at this time. Postmenopausal bleeding. PTSD (post-traumatic stress disorder). Syncope. Tear of medial meniscus of left knee (Resolved). Aspiration: 04/09/2019; 02/05/19. Depo-Medrol injection: 04/09/2019; 02/05/19. Tendinitis of both rotator cuffs (Inactive 06/30/18). Thyroid nodule. TIA (transient ischemic attack) (Inactive). Transient neurologic deficit (Inactive). Vertigo. Surgical History (Updated 07/31/19 @ 00:23 by Dalton Hwang). Colonoscopy - MAC (02/14/18). EGD - MAC (02/14/18). Replacement of total knee joint. R. Rotator Cuff Repair. 2x on R, 1 x on L. S/P left knee arthroscopy (Inactive). partial medial menisectomy and trochlear chondroplasty. DOS: 05/17/19. Aspiration/Injection: 06/15/19 PREVIOUS FUNCTIONAL STATUS/SOCIAL/FAMILY SUPPORTS:: Dinesh lives in [place], [place] She was reluctant to talk when CM entered the room and stated that she just wants to go home as soon as possible. She states she will be fine once she gets home and uses a walker. She had a walker when she had knee surgery in 2013 but no longer has it. She states she will get one form a community agency. CURRENT FUNCTIONAL STATUS:: Dinesh was lying in bed when CM came to meet with her. She was hesitant to engage in conversation; she just wants to go home she stated. She had shared with the DEVELOPMENT OFFICER that she wants to go outside and smoke but did not raise that issue with CM. ADVANCE DIRECTIVES:: none on file Has patient been provided with information about the portal?: No Did the patient sign up for the portal?: No CODE STATUS:: Full Code INSURANCE COVERAGE / FINANCIAL ISSUES:: Medicare. Medicaid CURRENT HOME/COMMUNITY SERVICES/EQUIPMENT:: none at the moment PRIMARY CARE PHYSICIAN:: Lucy Courtney POTENTIAL DISCHARGE NEEDS:: Follow up with PCP and discharge plan of care PATIENT/FAMILY EDUCATION NEEDS:: Discharge plan, limitations, follow up, Ask Me Three ANTICIPATED BARRIERS TO DISCHARGE:: None identified TRANSPORTATION:: via private vehicle with family. PLAN:: Dinesh will likely be discharged home with no new services. She will transport via private vehicle with family. CM will continue to provide support to patient, family and discharge planning needs.
[2019-07-31] MEDS: Acetaminophen 325 MG TAB PO ×2 (10:10→15:15)
[2019-07-31] MEDS: Lidocaine 5% Patch 1 PATCH TP (10:11)
[2019-07-31 11:15] VITALS: BP 106/69; PULSE 72; RESP 18; TEMP 36.6; O2SAT 93
--- NOTE | 2019-07-31 11:37 | W.PM.PROGNOT ---
Date of Service Date of service: 07/31/19 Time of Service: 11:37 Assessment and Plan (1) Lumbar degenerative disc disease: Current visit: Yes Status: Acute With L5-S1 disc bulge noted on CT scan. Low back pain with radiculopathy. She was initiated on IV corticosteroids, oral muscle relaxants (Robaxin), Toradol and IV fentanyl. She appears to be tolerating IV fentanyl. She is eager for discharge as she is a smoker and is refusing nicotine replacement at this time. Will transition to oral steroids and oral pain medication today and monitor overnight. She verbalizes improvement in her pain since the Lidoderm patch was applied, however, she has been itchy and feels that it is related to the Lidoderm patch. Will discontinue lidocaine patch, if itching does not resolve, will re-apply Lidoderm patch. (2) Chronic low back pain: Current visit: Yes Status: Acute Acute on chronic low back pain as above. Improving with current treatment. Transition to oral medications as above. Qualifiers: Back pain laterality: left Sciatica presence: with sciatica Sciatica laterality: sciatica of left side Qualified Code(s): M54.42 - Lumbago with sciatica, left side; G89.29 - Other chronic pain (3) Tobacco abuse: Current visit: No Status: Acute Refusing nicotine replacement, wants to leave hospital to smoke. Advised that this is a nonsmoking campus. Continue to offer nicotine replacement. (4) GERD (gastroesophageal reflux disease): Current visit: No Status: None Continue omeprazole. (5) DVT prophylaxis: Current visit: No Status: Resolved Subcutaneous Lovenox. (6) Discharge planning issues: Current visit: No Status: Resolved She is a full code. PT consulted, recommend ambulate with walker and outpatient physical therapy. This case was discussed with Dr. Estrada who is in agreement. Subjective Interval history since last seen: Dinesh John continues to have back pain, she rates it at an 8/10 at present. She continues to have some discomfort radiating down her left leg as well as tingling down bilateral legs. She has left knee pain at baseline, however, her left lower extremity pain has been exacerbated by the back pain. She is agreeable to trying tramadol for oral pain medication, she believes she has taken in the past. She does have multiple allergies and adverse reactions to pain medications. She wants to leave the hospital to smoke. She adamantly refuses any nicotine replacement including patch, gum or nicotine inhaler. She is agreeable to transitioning to oral steroids and pain medication in an attempt to get her discharged home in the near future. She worked with physical therapy and was able to ambulate with a walker. Physical therapy recommends walker at discharge and outpatient PT. Exam Narrative Exam Narrative: General: sitting up in chair, leaning forward, appears comfortable. Does not appear to be in acute distress. Alert and oriented, answers questions appropriately. HEENT: Normocephalic, atraumatic, glasses on, pupils 4 mm, round and symmetrical. EOMI, mucous membranes moist. Neck: Supple, no JVD. Respiratory: Respirations even and unlabored, lung sounds clear to auscultation bilaterally. Cardiovascular: Heart has regular rate and rhythm, distant sounds, no murmur appreciated. GI: Normoactive bowel sounds throughout, abdomen soft, nondistended, nontender on palpation, no masses appreciated. Back: Mild tenderness on palpation along lower thoracic/lumbar spine and along paraspinal muscles bilaterally. Reports discomfort with bilateral leg raise. Extremities: Well-perfused, no significant edema, pedal pulses palpable bilaterally. Objective Objective Clinical Data: Abnormal lab results 07/30/19 07/30/19 07/30/19 Range/Units 20:40 20:40 21:38 RDW 14.8 H (11.7-14.6) % Absolute Lymphocytes 3.83 H (1.2-3.4) k/cumm Albumin 3.2 L (3.4-5.0) g/dL Ur Specific [place] >= 1.030 H (1.005-1.025) Urine Protein 30 H (Negative) mg/dL Urine Blood Small H (Negative) Urine Bilirubin Small H (Negative) Urine RBC 3-5 H (0-2) Vital Signs Temperature 36.0 C L 07/31/19 08:18 Temperature Source Tympanic 07/31/19 08:18 Pulse 87 07/31/19 08:18 Pulse Rhythm Regular 07/31/19 10:38 Respiratory Rate 18 07/31/19 08:18 Respiratory Effort Non-Labored 07/31/19 10:38 Respiratory Depth Normal 07/31/19 10:38 Respiratory Pattern Normal 07/31/19 10:38 Blood Pressure 114/79 07/31/19 08:18 Blood Pressure Position Sitting 07/30/19 16:06 Pulse Oximetry 96 07/31/19 08:18 Oxygen Delivery Method Room Air 07/31/19 08:18 Oxygen Flow Rate 0 07/31/19 08:18 Pain Level 8 07/31/19 11:11 Comment 07/30/19 16:06 Intake & Output 07/30/19 07/30/19 07/31/19 11:59 23:59 11:59 Intake Total 1000 / 1000 Output Total 700 / 700 Balance 1000 / 1000 -690 / -690 Weight 113.398 kg 116.5 kg Intake: IV 1000 / 1000 Output: Urine 700 / 700 Other: Urine Color Yellow Urine Appearance Clear Clear Urine Odor Normal Voiding Methods Toilet Laboratory Results WBC 10.56 k/cumm (4.4-10.8) 07/30/19 20:40 RBC 4.65 m/cumm (4.00-5.20) 07/30/19 20:40 Hgb 13.7 g/dL (12.0-15.5) 07/30/19 20:40 Hct 42.1 % (36.0-46.0) 07/30/19 20:40 MCV 90.5 fL (80-95) 07/30/19 20:40 MCH 29.5 pg (27.0-33.0) 07/30/19 20:40 MCHC 32.5 g/dL (32.0-36.0) 07/30/19 20:40 RDW 14.8 % (11.7-14.6) H 07/30/19 20:40 Plt Count 274 x1000/uL (130-400) 07/31/19 06:15 MPV 9.8 fL (8.0-11.0) 07/30/19 20:40 Immature Gran % 0.2 07/30/19 20:40 57.8 07/30/19 20:40 36.3 07/30/19 20:40 5.6 07/30/19 20:40 0.0 07/30/19 20:40 0.1 07/30/19 20:40 Absolute Neutrophils 6.11 k/cumm (1.2-6.7) 07/30/19 20:40 Absolute Lymphocytes 3.83 k/cumm (1.2-3.4) H 07/30/19 20:40 Absolute Monocytes 0.59 k/cumm (0.11-0.7) 07/30/19 20:40 Absolute Eosinophils 0.00 k/cumm (0.0-0.7) 07/30/19 20:40 Absolute Basophils 0.01 k/cumm (0.0-0.2) 07/30/19 20:40 Sodium 139 mmol/L (136-145) 07/30/19 20:40 Potassium 4.0 mmol/L (3.5-5.1) 07/30/19 20:40 Chloride 106 mmol/L (98-107) 07/30/19 20:40 Carbon Dioxide 23.1 mmol/L (21.0-32.0) 07/30/19 20:40 9.9 mmol/L (3-11) 07/30/19 20:40 BUN 16 mg/dL (7-18) 07/30/19 20:40 0.93 mg/dL (0.55-1.02) 07/30/19 20:40 >= 60.00 (mL/min/1.73m2) 07/30/19 20:40 Glucose 94 mg/dL (70-100) 07/30/19 20:40 Calcium 8.9 mg/dL (8.5-10.1) 07/30/19 20:40 0.7 mg/dL (0.2-1.0) 07/30/19 20:40 AST 19 U/L (15-37) 07/30/19 20:40 ALT 23 U/L (14-59) 07/30/19 20:40 91 U/L (46-116) 07/30/19 20:40 7.1 g/dL (6.4-8.2) 07/30/19 20:40 3.2 g/dL (3.4-5.0) L 07/30/19 20:40 Yellow (Yellow) 07/30/19 21:38 Sl cloudy (Clear) 07/30/19 21:38 5.5 (5-8) 07/30/19 21:38 Ur Specific [place] >= 1.030 (1.005-1.025) H 07/30/19 21:38 30 mg/dL (Negative) H 07/30/19 21:38 Negative mg/dL (Negative) 07/30/19 21:38 Small (Negative) H 07/30/19 21:38 Negative (Negative) 07/30/19 21:38 Small (Negative) H 07/30/19 21:38 0.2 EU/dL (Up TO 0.2) 07/30/19 21:38 Ur Leukocyte Esterase Negative (Negative) 07/30/19 21:38 3-5 (0-2) H 07/30/19 21:38 0-2 HPF (0-5) 07/30/19 21:38 Ur Epithelial Cells Many HPF (Negative) 07/30/19 21:38 Few amorphous HPF (Negative) 07/30/19 21:38 Rare HPF (Negative) 07/30/19 21:38 Negative LPF (Negative) 07/30/19 21:38 Negative (Negative) 07/30/19 21:38 Ur Culture Indicated? No 07/30/19 21:38 Negative mg/dL (Negative) 07/30/19 21:38
[2019-07-31] MEDS: traMADol 50 MG TAB PO (11:59)
--- NOTE | 2019-07-31 12:59 | IN_ITS ---
Date of service: 07/31/19 Time of Service: 09:56 PT Notes Inpatient Physical Therapy Evaluation Date: 07/31/2019 Referring Doctor: Dalton Hwang MD PT Orders: PT CONSULT: Limited ability? Precautions: Fall. Standard. Patient Profile/Admitting Diagnosis: Patient is a 45-year-old female admitted to the ED on 07/30/2019 for an episode of acute low back pain. CT scan confirmed disc bulge between L5-S1. Patient is diagnosed with lumbar OA and chronic low back pain. PMHX: Medical History (Updated 07/31/19 @ 01:11 by Dalton Hwang) Anxiety Asthma Atypical migraine (Acute) Chronic headache (Acute) Chronic low back pain (Acute) Chronic pain Cigarette smoker Depression Dysphagia Family history of colon cancer GERD (gastroesophageal reflux disease) Hyperthyroidism Intertrigo Left lateral epicondylitis (Inactive) s/p debridement 11/30/18 Lumbar degenerative disc disease (Acute) Migraine Migraine headache with aura (Acute) Migraine headache without aura (Acute) Obese Obstructive sleep apnea No CPAP at this time Postmenopausal bleeding PTSD (post-traumatic stress disorder) Syncope Tear of medial meniscus of left knee (Resolved) Aspiration: 04/09/2019; 02/05/19 Depo-Medrol injection: 04/09/2019; 02/05/19 Tendinitis of both rotator cuffs (Inactive 06/30/18) Thyroid nodule TIA (transient ischemic attack) (Inactive) Transient neurologic deficit (Inactive) Vertigo Surgical History (Updated 07/31/19 @ 00:23 by Dalton Hwang) Colonoscopy - MAC (02/14/18) EGD - MAC (02/14/18) Replacement of total knee joint R Rotator Cuff Repair, 2x on R, 1 x on L S/P left knee arthroscopy (Inactive) Partial medial menisectomy and trochlear chondroplasty, DOS: 05/17/19 Aspiration/Injection: 06/15/19 Home Situation: Patient reports she lives in a trailer with her adult-son Alexandr. They both receive disability benefits. Patient states there are five steps to enter the home. Ms. John reports the walk from her bedroom to the bathroom is 15 to 20 feet, kitchen distance is about the same. Patient reports that her son does most of the cooking in the home. Patient was independent with all ADLs but reported that she has a cane that she rarely uses. Current Functional Limitations: Increased difficulty and completion time for all ADL task performance; need for assistive ambulatory device for all long distance ambulation performance Equipment Owned/DME: Patient reports she has an SC that she rarely uses. Subjective: Patient is agreeable to a PT consult. Patient verbalized 10/10 pain in her low back while laying supine. Ms. John stated some relief with walking. She stated that she is ?stubborn? and pushes herself to complete daily activities despite pain. She reported mild relief following an outpatient physical therapy appointment on Tuesday but pain was worsened after she performed some lifting activities over the weekend. Prior Level of Function: Independent with all aspects of ADLs with occasional use of a cane. Current Level of Function: Requires assistance for activities requiring lumbar and hip flexion (e.g. putting on socks). Previous Treatment: Outpatient physical therapy visit on 07/27/2019 Objective: Posture: Slight thoracic kyphosis and forward head General Observation: Patient was seen laying supine in bed with HOB elevated. Mental Status: Alert and oriented x 4 Pain: Verbalized 10/10 in low back area ROM: Right Lower Extremity: Hip flexion 90 degrees. Hip abduction WFL. Knee flexion WFL. Ankle dorsiflexion WFL. Ankle plantarflexion WFL. Left Lower Extremity: Hip flexion 90 degrees. Hip abduction WFL. Knee flexion WFL. Ankle dorsiflexion WFL. Ankle plantarflexion WFL. Strength: Right Lower Extremity: Hip flexors 4/5. Hip abductors 5/5. Knee flexors 5/5. Knee extensors 5/5. Ankle dorsiflexors 5/5. Ankle plantarflexors 5/5. Left Lower Extremity:Hip flexors 4/5. Hip abductors 5/5. Knee flexors 5/5. Knee extensors 5/5. Ankle dorsiflexors 5/5. Ankle plantarflexors 5/5. Bed Mobility/Transfers: Rolling I Supine to sit I Sit to supine I Sit to stand I Stand to sit I Bed to chair SBA Gait: Patient ambulated 50? with SBA and wheelchair-follow. She reported pain at 50? which subsided when provided a FWW. She continued ambulating with FWW for 100? with wheelchair-follow and SBA. Gait pattern mildly wide-based. Balance: Static Sitting: Normal Dynamic Sitting: Normal Static Standing: Normal Dynamic Standing: Fair Special Tests: Mobility Limitations Standardized Measure [facility] AM-PAC 6 clicks Basic Mobility Inpatient Short Form: Raw Score: 22 CMS Score: 21% Fear Avoidance Belief Questionnaire: PA Subscale: indicating that the way she perceives her pain may dictate her behaviors involving physical activity. Work Subscale: indicating that the way she perceives her pain may dictate her behaviors involving work (or her daily activities). Informed Consent/Education: Patient instructed in purpose of PT consult and is agreeable to resuming OP PT services and potentially aquatic therapy to facilitate return to PLOF. She was receptive to ensuring proper body mechanics, activity level modification, and self-pacing in order to minimize strain to back. Assessment: Patient is on her second day in the medical surgical unit for acute low back pain. Although she reports a high level of pain, she was able to complete mobility tasks independently and was able to increase ambulation distance with the use of FWW to off-load back strain. She presents with clinical signs and symptoms consistent with current/admitting diagnoses that have resulted to limited ROM in hip flexion, weakness of hip flexors, and impairment of motor control as demonstrated by the following impairment level findings: 1. Impaired activity tolerance 2. Limitation of joint range of motion in hip flexion Impairments are contributing to the following functional limitations: 1. Inability to safely ambulate without assistive device and physical assistance 2. Increase completion time for mobility ADL performance 3. Increased fall risk Patient is assessed as a 33629 moderate complexity based on the following: History: Patient is a 45-year-old female with past medical history as listed above admitted to the ED on 07/30/2019 for an episode of acute low back pain. CT scan confirmed disc bulge between L5-S1. Patient is diagnosed with lumbar OA and chronic low back pain. Examination: Demonstrable impairment in hip flexor strength, and range of motion with underlying impairments and functional limitations as documented above Presentation: Evolving Decision Makin moderate complexity DISCHARGE RECOMMENDATIONS: The patient is agreeable to be discharged to home and continue with outpatient physical therapy and potentially aquatic therapy. TREATMENT CODE/TIME: 53349 x 40 minutes beginning at 9:56 AM. Thank you very much for this referral. Tra Lewis, [facility] Under the supervision of: Rika Oseguera PT, DPT, CLT [facility]
--- NOTE | 2019-07-31 13:33 | CHAPLAIN ---
Dinesh was in bed with her back to the door. I introduced myself and explained my role. She asked if I could take her outside. I said, only with permission from nursing. She responded that nursing has said no to her request to go outside, and I said I couldn't take her out if nursing had said no. She wasn't interested in talking after that.
[2019-07-31 16:12] VITALS: BP 124/90; PULSE 51; RESP 18; TEMP 35.8; O2SAT 93
[2019-07-31] MEDS: predniSONE 20 MG TAB 60 MG PO (19:36)
[2019-07-31 19:46] VITALS: BP 118/79; PULSE 91; RESP 18; TEMP 35.5; O2SAT 94
[2019-07-31 23:21] VITALS: BP 120/75; PULSE 88; RESP 17; TEMP 36.4; O2SAT 95
[2019-08-01] MEDS: traMADol 50 MG TAB PO ×2 (02:40→10:48)
[2019-08-01 03:03] VITALS: BP 117/76; PULSE 83; RESP 18; TEMP 36; O2SAT 96
[2019-08-01] MEDS: Acetaminophen 325 MG TAB PO ×2 (04:05→10:48)
[2019-08-01] MEDS: Normal Saline Flush 10 ML SYR IVP ×3 (05:18→12:09)
[2019-08-01] MEDS: Ketorolac 30 MG/ML VIAL IVP ×2 (05:18→12:08)
[2019-08-01 07:20] VITALS: BP 128/86; PULSE 88; RESP 19; TEMP 36.1; O2SAT 95
[2019-08-01] MEDS: fentaNYL 100 MCG/2 ML VIAL IVP (07:45)
[2019-08-01] MEDS: Docusate Sodium 100 MG CAP PO (07:51)
[2019-08-01] MEDS: Gabapentin 100 MG CAP PO (07:51)
[2019-08-01] MEDS: Cetirizine 10 MG TAB PO (07:51)
[2019-08-01] MEDS: Topiramate 100 MG TAB PO (07:51)
[2019-08-01] MEDS: Methocarbamol 750 MG TAB 1500 MG PO ×2 (07:51→12:09)
[2019-08-01] MEDS: Omeprazole 20 MG CAPCR 40 MG PO (07:51)
[2019-08-01] MEDS: Venlafaxine 37.5 MG CAPCR 225 MG PO (07:51)
[2019-08-01] MEDS: predniSONE 20 MG TAB 60 MG PO (07:52)
--- NOTE | 2019-08-01 10:50 | DSE_ITS ---
Date of service: 08/01/19 Time of Service: 10:50 DS: Diagnosis Discharge Diagnosis (1) Lumbar degenerative disc disease: Status: Acute (2) Chronic low back pain: Status: Acute (3) Tobacco abuse: Status: Acute (4) GERD (gastroesophageal reflux disease): Status: None (5) DVT prophylaxis: Status: Resolved (6) Discharge planning issues: Status: Resolved Discharge Plan Disposition Patient Disposition: HOME Condition: Improving Discharge Details Chief Complaint: Nk/Back Pain Clinical Impression: Back pain Reason For Visit: UNCONTROLLED BACK PAIN Admit Date/Time: 07/30/19 22:25 Admit Provider: Dalton Hwang Attending Provider: Dalton Hwang Primary Care Provider: Lucy Courtney ED Provider: Breann Hudson [facility] Hospital Course: Dinesh John is a pleasatn 49 year old female with a past medical history significant for obesity, GERD, migraine headaches, ROLANDA and lower back pain due to degenerative disc disease with L5-S1 bulging disc, present for 1 month who presented to the emergency department on 07/30/2019 with exacerbation of her low back pain with radiculopathy down her left leg. She denied any saddle anesthesia or bladder or bowel incontinence. At the time of her admission she had started physical therapy with a TENS unit, Biofreeze and prednisone from her primary care provider with no improvement in her back pain. In the emergency department, she he underwent a repeat CT of her thoracic and lumbar spine which confirmed her L5-S1 bulging disc without herniation. Note was also made of a left thyroid nodule measuring 2.3 cm which had been noted on previous imaging in May 2019. She was given IV Toradol, IV Valium and IV Dilaudid without adequate pain control. She was unable to ambulate out of the emergency department and was admitted to the [facility] floor for further management and pain control. She was initiated on high-dose IV corticosteroids, oral muscle relaxants and IV fentanyl for severe pain not controlled by Toradol. Physical therapy was consulted. Physical therapy recommended discharge home with outpatient physical therapy, potentially aquatic therapy, and use of a front wheeled walker. The patient was eager for discharge to the morning following her admission, the IV steroids were transitioned to oral prednisone which will be tapered. Her pain was fairly well controlled with tramadol, Robaxin and Toradol. She was able to ambulate with a walker. She will be discharged home with Robaxin, tramadol, prednisone taper as well as use of acetaminophen and ibuprofen. She begin outpatient physical therapy after discharge. She will need to follow up with her PCP in the days following her discharge. Her thyroid nodule will need follow-up as an outpatient, radiology recommends ultrasound. Home Meds and New Rx's Prescriptions: New tramadol 50 mg Tablet 50 mg PO Q4H PRN PRNQty: 18 RF: 0 docusate sodium [Colace] 100 mg Capsule 100 mg PO TID Qty: 30 RF: 0 prednisone 10 mg tablet 10 mg PO DAILY Qty: 39 RF: 0 ibuprofen [IBU] 800 mg tablet 800 mg PO Q8H PRN (Reason: pain) Qty: 20 RF: 0 acetaminophen 500 mg capsule 1,000 mg PO Q8H PRN PRN (Reason: pain) Qty: 30 RF: 0 carisoprodol [Soma] 350 mg tablet 350 mg PO TID Qty: 14 RF: 0 Continued dihydroergotamine [Migranal] 1 ML spray,non-aerosol 1 ml NS PRN RF: 0 cetirizine [Zyrtec] 10 MG tablet 10 mg PO DAILY RF: 0 ondansetron HCl [Zofran] 4 MG tablet 4 mg PO PRN RF: 0 meclizine 12.5 MG tablet 12.5 mg PO BID PRNRF: 0 omeprazole 40 MG capsule,delayed release(DR/EC) 40 mg PO BID Qty: 60 RF: 3 venlafaxine 75 MG tablet 225 mg PO DAILY RF: 0 topiramate 100 MG tablet 100 mg PO BID RF: 0 prochlorperazine maleate [Compazine] 5 mg tablet 5 - 10 mg PO Q8H PRN PRN (Reason: migraine) Qty: 30 RF: 1 acetaminophen [Tylenol Extra Strength] 500 mg Tablet 1,000 mg PO PRN PRNRF: 0 Atrovent HFA 1 PUFF HFA aerosol inhaler 1 puff Inhalation Q8H PRNRF: 0 albuterol sulfate [Proventil HFA] 200 PUFF HFA aerosol inhaler 2 puff Inhalation PRN PRNRF: 0 Narcan 4 MG spray,non-aerosol 4 mg NS PRN Qty: 2 RF: 0 clonazepam 1 mg Tablet 1 mg PO BID PRNRF: 0 gabapentin 100 mg Capsule 300 mg PO TID RF: 0 No Action ibuprofen 400 mg Tablet 800 mg PO Q8H PRNRF: 0 Discharge Instructions Instructions: Back Pain (GEN), Degenerative Disc Disease (DC) Additional Instructions: Taper prednisone as follows: take 6 tablets x3 days, then decrease to 4 tabs x3 days, then decrease to 2 tabs x 3 days, then 1 tab daily x3 days then stop. Take Ibuprofen scheduled every 8 hours for the next 3 days then take as needed. Take acetaminophen as needed every 8 hours for pain. Take Soma for back pain- 3 times per day. Take tramadol for break through back pain. Use heat to back. Follow up with PT. Follow up with PCP on back pain and on thyroid nodule. Stand Alone Forms: Nursing Discharge Form Referrals: Joy Cunningham [ NON-[facility] STAFF PHYSICIAN] - 08/03/19 8:55 am Mike [facility] PT [PHYSICAL THERAPIST] - 08/10/19 3:00 pm Activity:: Activity as Tolerated Equipment/Supplies:: Walker Diet:: As Tolerated Discharge Orders Discharge Orders: Discharge Order (Routine); Ordered 08/01/19 Ordered By: Alpa Munoz Exam Narrative Exam Narrative: General: laying in bed on right side, appears comfortable. Does not appear to be in acute distress. Alert and oriented, answers questions appropriately. HEENT: Normocephalic, atraumatic, pupils 4 mm, round and symmetrical. EOMI, mucous membranes moist. Neck: Supple, no JVD. Respiratory: Respirations even and unlabored, lung sounds clear to auscultation bilaterally. Cardiovascular: Heart has regular rate and rhythm, distant sounds, no murmur appreciated. GI: Normoactive bowel sounds throughout, abdomen soft, nondistended, nontender on palpation, no masses appreciated. Back: Mild tenderness on palpation along lower thoracic/lumbar spine and along paraspinal muscles bilaterally. Reports discomfort with bilateral leg raise. Extremities: Well-perfused, no significant edema, pedal pulses palpable bilaterally. DS: Data Vitals/I&O Vitals and I&O: Vital Signs Temperature 36.1 C L 08/01/19 07:20 Temperature Source Tympanic 08/01/19 07:20 Pulse 88 08/01/19 07:20 Pulse Rhythm Regular 08/01/19 08:35 Respiratory Rate 19 08/01/19 07:20 Respiratory Effort Non-Labored 08/01/19 08:35 Respiratory Depth Normal 08/01/19 08:35 Respiratory Pattern Normal 08/01/19 08:35 Blood Pressure 128/86 08/01/19 07:20 Blood Pressure Position Sitting 07/30/19 16:06 Pulse Oximetry 95 08/01/19 07:20 Oxygen Delivery Method Room Air 08/01/19 07:20 Oxygen Flow Rate 0 08/01/19 07:20 Pain Level 9 08/01/19 07:45 Comment 07/30/19 16:06 Intake & Output 07/31/19 07/31/19 08/01/19 11:59 23:59 11:59 Intake Total 250 / 920 670 / 920 950 / 950 Output Total 700 / 700 Balance -450 / 220 670 / 220 950 / 950 Weight 116.5 kg Intake: IV Oral 240 / 900 660 / 900 940 / 940 Output: Urine 700 / 700 Other: Urine Color Yellow Yellow Urine Appearance Clear Urine Odor Normal None Comment pt gets up AD RILEY to void. pt refusing to keep hat in toilet. Voiding Methods Toilet Toilet Toilet Completed studies during hospitalization [Text1]: 07/30/19: CT THORACIC SPINE: There is no evidence of acute fracture. There are end plate osteophytes throughout projecting anteriorly. There is no central canal stenosis or significant neural foraminal narrowing. IMPRESSION: Negative CT of the thoracic spine. CT LUMBAR SPINE: Mild disc bulging is seen at L3-4 and moderate disc bulging is seen at L4-5 The disc spaces are well maintained in height. There are minimal end plate osteophytes which project anteriorly. There are mild facet degenerative changes compared. No spondylolysis or spondylolisthesis seen. IMPRESSION: Mild degenerative changes. There is mild to moderate disc bulging at L3-4 and L4-5. EXAM DATE/TIME: 07/30/2019 8:07 PM CLINICAL HISTORY: 49 years old, female; Low back pain; Pain in thoracic spine; With radiculopathy; Bilateral; Patient HX: Per PT: Severe pain, radiating into lower extremities TECHNIQUE: Imaging protocol: Computed tomography images of the thoracic spine without contrast. COMPARISON: No relevant prior studies available. FINDINGS: Vertebrae: No acute fracture. Normal alignment. Discs/Spinal canal/Neural foramina: No spinal stenosis. Soft tissues: Unremarkable. Thyroid: Left thyroid nodule measures 2.3 cm. [facility] Medical History Anxiety Asthma Atypical migraine (Acute) Chronic headache (Acute) Chronic low back pain (Acute) Chronic pain Cigarette smoker Depression Dysphagia Family history of colon cancer GERD (gastroesophageal reflux disease) Hyperthyroidism Intertrigo Left lateral epicondylitis (Inactive) s/p debridement 11/30/18 Lumbar degenerative disc disease (Acute) Migraine Migraine headache with aura (Acute) Migraine headache without aura (Acute) Obese Obstructive sleep apnea No CPAP at this time Postmenopausal bleeding PTSD (post-traumatic stress disorder) Syncope Tear of medial meniscus of left knee (Resolved) Aspiration: 04/09/2019; 02/05/19 Depo-Medrol injection: 04/09/2019; 02/05/19 Tendinitis of both rotator cuffs (Inactive 06/30/18) Thyroid nodule TIA (transient ischemic attack) (Inactive) Transient neurologic deficit (Inactive) Vertigo Surgical History Colonoscopy - MAC (02/14/18) EGD - MAC (02/14/18) Replacement of total knee joint R Rotator Cuff Repair 2x on R, 1 x on L S/P left knee arthroscopy (Inactive) partial medial menisectomy and trochlear chondroplasty DOS: 05/17/19 Aspiration/Injection: 06/15/19 Family History Father Rheumatoid arthritis Brother Rheumatoid arthritis Social History Smoking/Tobacco Use Status: Current every day Tobacco Type: cigarettes Tobacco: How many years used: 25 Alcohol Intake: current Alcohol Intake frequency: holidays/special occasions only Alcohol type: wine Drug use: Occasionally Substance use type: marijuana Details: marijuana couple days since I smoked Do you feel safe at home: Yes Do you feel safe in your relationship?: Yes Additional Social history: no relationship, thats done
[2019-08-01 11:05] VITALS: BP 107/71; PULSE 92; RESP 18; TEMP 36; O2SAT 98
--- NOTE | 2019-08-01 15:50 | PDOC.CMDIS ---
- If Service Date Differs Date of service: 08/01/19 Time of Service: 15:50 LACE Index Scoring Tool - Questions: Length of Stay (in days): 2 Acuity (Admit via E.D.?): Yes E.D. Visits: 7 - Answers: Total Score: 9 Risk of Readmission: Low Risk Care Management Discharge Reason for Hospitalization: Lumbar degeneratine disc disease Discharge Plan: Dinesh will discharge home with no home services. She will follow up with her PCP and outpatient physical therapy. She will transport via private vehicle with family. Patient/Family Education Needs: Discharge plan, limitations, follow up plan, Ask Me Three.
== END 2019-08-01 13:14 | disposition home or self-care (01) ==
LOC: ER 22:30 → MS 22:57
PROVIDERS: Admitting Provider Internal Medicine; Emergency Provider Physician Assistant; PCP Nurse Practitioner Family; Visit Provider Internal Medicine
DX: M51.17 Intervertebral disc disorders with radiculopathy, lumbosacral region (principal); G47.33 Obstructive sleep apnea (adult) (pediatric); K21.9 Gastro-esophageal reflux disease without esophagitis
CPT/HCPCS: 36415; 80053; 96361; 96374; 96375; 97162; 97530; 99219; 99225; 99239; 99285; J1650; 72128; 72131; 81003; 81015; 85025; 85049; 99217; 99220; 99284; G0378; J1200; J1885; J2930; J3010; J7512

== ENCOUNTER → 2019-08-27 11:02 | Outpatient (BNVA) | payer MEDICARE, MEDICAID, SELFPAY | PROVIDERS: PCP Nurse Practitioner Family; Referring Provider Nurse Practitioner Family; Visit Provider Student in an Organized Health Care Education/Training Program | DX: M17.12 Unilateral primary osteoarthritis, left knee (principal); M25.562 Pain in left knee; M25.561 Pain in right knee; G89.29 Other chronic pain | CPT/HCPCS: 20610; 99213; J1040 ==

== ENCOUNTER 2019-09-23 08:54 | Emergency (ER) | payer MEDICARE, MEDICAID, SELFPAY ==
[2019-09-23 08:56] VITALS: BP 152/95; PULSE 87; RESP 18; TEMP 36.2; O2SAT 96
--- NOTE | 2019-09-23 09:22 | ED.GENADUL_ITS ---
Discharge Plan Disposition Patient Disposition: HOME Condition: Improving Discharge Details Chief Complaint: Headache Clinical Impression: Migraine Primary Care Provider: Lucy Courtney ED Provider: Lucy Kim Home Meds and New Rx's Prescriptions: No Action dihydroergotamine [Migranal] 1 ML spray,non-aerosol 1 ml NS PRN RF: 0 cetirizine [Zyrtec] 10 MG tablet 10 mg PO DAILY RF: 0 ondansetron HCl [Zofran] 4 MG tablet 4 mg PO PRN RF: 0 meclizine 12.5 MG tablet 12.5 mg PO BID PRNRF: 0 omeprazole 40 MG capsule,delayed release(DR/EC) 40 mg PO BID Qty: 60 RF: 3 diazepam 10 mg tablet 10 mg PO BID PRN (Reason: spasm) Qty: 14 RF: 0 tramadol 50 mg tablet 50 mg PO Q8H PRN (Reason: pain) Qty: 18 RF: 0 venlafaxine 75 MG tablet 225 mg PO DAILY RF: 0 topiramate 100 MG tablet 100 mg PO BID RF: 0 prochlorperazine maleate [Compazine] 5 mg tablet 5 - 10 mg PO Q8H PRN PRN (Reason: migraine) Qty: 30 RF: 1 acetaminophen [Tylenol Extra Strength] 500 mg Tablet 1,000 mg PO PRN PRNRF: 0 ibuprofen 400 mg Tablet 800 mg PO Q8H PRNRF: 0 Atrovent HFA 1 PUFF HFA aerosol inhaler 1 puff Inhalation Q8H PRNRF: 0 albuterol sulfate [Proventil HFA] 200 PUFF HFA aerosol inhaler 2 puff Inhalation PRN PRNRF: 0 Narcan 4 MG spray,non-aerosol 4 mg NS PRN Qty: 2 RF: 0 clonazepam 1 mg Tablet 1 mg PO BID PRNRF: 0 gabapentin 100 mg Capsule 300 mg PO TID RF: 0 docusate sodium [Colace] 100 mg Capsule 100 mg PO TID Qty: 30 RF: 0 prednisone 10 mg tablet 10 mg PO DAILY Qty: 39 RF: 0 ibuprofen [IBU] 800 mg tablet 800 mg PO Q8H PRN (Reason: pain) Qty: 20 RF: 0 acetaminophen 500 mg capsule 1,000 mg PO Q8H PRN PRN (Reason: pain) Qty: 30 RF: 0 carisoprodol [Soma] 350 mg tablet 350 mg PO TID Qty: 14 RF: 0 dihydroergotamine [Migranal] 0.5 mg/pump act. (4 mg/mL) [place],Non-Aerosol INTRANASAL RF: 0 Discharge Instructions Instructions: Migraine Headache (ED) Additional Instructions: Get plenty of rest. Drink plenty of fluids. Use your daily medications as previously prescribed. Recheck with your primary care doctor early next week. Next and return for any worsening, concerns or alarming symptoms sooner if needed Medical Decision Making 49-year-old patient presents for atypical presentation of her migraine compared to previous reports headache is 10 out of 10 which she reports is again typical of her presentation. No associated injury or trauma to her head recently. No fevers recently. No recent infections. Patient reports an aura preceding her headache which is now located at the bilateral temples and superior aspect of her head which again is typical of location. Patient did see neurology this year and is now on controller medications which has decreased the frequency of her migraine significantly. Patient was unable to hold down her Topamax at home for the last 2 days is feeling mildly dehydrated. IV placed, medications provided for nausea and headache specifically Reglan and Toradol and IV fluid. Reevaluation of the patient reveals improvement of her headache to approximately a 6 out of 10 at this time however she is still mildly uncomfortable. Will add Benadryl, offer med of and Decadron to the regimen of medication she previously received. Patient agrees with plan of care. Patient feeling significantly improved headache is improved to a 4 out of 10 and she is requesting discharge home at this time. She will get a ride home. The patient was stable and requested discharge. Prior to discharge, my usual and customary return precautions were reviewed with the patient - this included follow-up instructions and reasons to return to the Emergency Department if conditions worsens, does not improve as expected, or other new concerns arise. HPI General Date/Time Provider Initiated Documentation: 09/23/19 08:56 . HPI Narrative: Is a 49-year-old patient presents for complaints of migraine. Patient has a history of migraines. Patient reports onset of migraine yesterday. Patient reports migraine persisted today. Now reports a 10 out of 10 migraine. Patient does report this is very typical of her presentations of migraine. Patient reports yesterday onset of a visual aura which she describes as a silver type ribbon waving then reports increase in nasal sensitivity. Then reports onset of migraine bilateral temples and superiorly. Patient reports this is a typical presentation of her migraines. She denies vision change at this time. She does report associated vomiting for the last 2 days, several episodes. Having difficulty holding down her Topamax at home which she typically use for headache prevention. Patient reports she was getting more frequent migraines however after seeing neurology and beginning controlling medications she has had significantly less migraines recently. Patient denies any head injury or trauma recently. Denies ill feeling recently. Patient does report mild chills but she reports this is again very typical with her presentations of migraines no measured fever. No numbness tingling or weakness of arms or legs. Denies abdominal pain. Denies bowel changes. Urinating without difficulty. No other concerns or complaints at this time. Related Data Home Medications Medication Instructions Recorded Confirmed venlafaxine 225 mg PO DAILY 05/16/16 08/27/19 topiramate 100 mg PO BID 06/18/16 08/27/19 dihydroergotamine [Migranal] 1 ml NS PRN script 07/07/16 08/27/19 Atrovent HFA 1 puff INHALATION Q8H PRN 12/05/16 08/27/19 albuterol sulfate [Proventil HFA] 2 puff INHALATION PRN PRN 02/15/17 08/27/19 Narcan 4 mg NS PRN #2 spray 09/27/17 08/27/19 cetirizine [Zyrtec] 10 mg PO DAILY tab-cap 01/31/18 08/27/19 meclizine 12.5 mg PO BID PRN 01/31/18 08/27/19 ondansetron HCl [Zofran] 4 mg PO PRN 01/31/18 08/27/19 omeprazole 40 mg PO BID #60 tab-cap 03/31/18 08/27/19 clonazepam 1 mg PO BID PRN 11/29/18 08/27/19 gabapentin 300 mg PO TID 11/29/18 08/27/19 prochlorperazine maleate 5 - 10 mg PO Q8H PRN PRN #30 tab 06/11/19 08/27/19 [Compazine] acetaminophen [Tylenol Extra 1,000 mg PO PRN PRN 07/16/19 08/27/19 Strength] ibuprofen 800 mg PO Q8H PRN 07/16/19 08/27/19 acetaminophen 1,000 mg PO Q8H PRN PRN #30 cap 08/01/19 08/27/19 carisoprodol [Soma] 350 mg PO TID #14 tab 08/01/19 08/27/19 docusate sodium [Colace] 100 mg PO TID #30 cap 08/01/19 08/27/19 ibuprofen [IBU] 800 mg PO Q8H PRN #20 tab 08/01/19 08/27/19 prednisone 10 mg PO DAILY #39 tab 08/01/19 08/27/19 diazepam 10 mg tablet 10 mg PO BID PRN #14 tab 09/01/19 tramadol 50 mg tablet 50 mg PO Q8H PRN #18 tab 09/17/19 dihydroergotamine [Migranal] INTRANASAL 09/23/19 Previous Rx's Medication Instructions Recorded Narcan 4 mg NS PRN #2 spray 09/27/17 omeprazole 40 mg PO BID #60 tab-cap 03/31/18 prochlorperazine maleate 5 - 10 mg PO Q8H PRN PRN #30 tab 06/11/19 [Compazine] acetaminophen 1,000 mg PO Q8H PRN PRN #30 cap 08/01/19 carisoprodol [Soma] 350 mg PO TID #14 tab 08/01/19 docusate sodium [Colace] 100 mg PO TID #30 cap 08/01/19 ibuprofen [IBU] 800 mg PO Q8H PRN #20 tab 08/01/19 prednisone 10 mg PO DAILY #39 tab 08/01/19 diazepam 10 mg tablet 10 mg PO BID PRN #14 tab 09/01/19 tramadol 50 mg tablet 50 mg PO Q8H PRN #18 tab 09/17/19 Allergies Allergy/AdvReac Type Severity Reaction Status Date / Time adhesive Allergy Intermediate gets red Verified 09/23/19 09:01 and welts up codeine Allergy Intermediate Itching Unverified 09/23/19 09:01 oxycodone HCl [From Percocet] Allergy Intermediate Anaphylaxsi Unverified 09/23/19 09:01 s morphine Allergy Itching Verified 09/23/19 09:01 General Stated Complaint: Headache CRISTI: 3 Review of Systems All systems reviewed & are unremarkable except as noted in HPI and below Constitutional Constitutional: Reports chills, Denies fever(s) and Reports headache(s) Eyes Eyes: Denies blind spots, Denies blurry vision and Denies diplopia ENT Ears, Nose, Mouth, and Throat: Denies dizziness, Reports headache(s), Denies sinus pain, Denies sinus pressure, Denies sore throat and Denies throat swelling Cardiovascular Cardiovascular: Denies chest pain and Denies dyspnea on exertion Respiratory Respiratory: Denies cough and Denies dyspnea on exertion Gastrointestinal Gastrointestinal: Denies diarrhea, Reports nausea and Reports vomiting Neurologic Neurologic: Denies dizziness and Reports headache(s) Allergic/Immunologic Allergic/Immunologic: Denies throat swelling PFSH Medical History Anxiety Asthma Atypical migraine (Acute) Chronic headache (Acute) Chronic low back pain (Acute) Chronic pain Cigarette smoker Depression Dysphagia Family history of colon cancer GERD (gastroesophageal reflux disease) Hyperthyroidism Intertrigo Left lateral epicondylitis (Inactive) s/p debridement 11/30/18 Lumbar degenerative disc disease (Acute) Migraine Migraine headache with aura (Acute) Migraine headache without aura (Acute) Obese Obstructive sleep apnea No CPAP at this time Postmenopausal bleeding PTSD (post-traumatic stress disorder) Syncope Tear of medial meniscus of left knee (Resolved) Aspiration: 04/09/2019; 02/05/19 Depo-Medrol injection: 04/09/2019; 02/05/19 Tendinitis of both rotator cuffs (Inactive 06/30/18) Thyroid nodule TIA (transient ischemic attack) (Inactive) Transient neurologic deficit (Inactive) Vertigo Social History Smoking/Tobacco Use Status: Current every day Tobacco Type: cigarettes Tobacco: How many years used: 25 Alcohol Intake: current Alcohol Intake frequency: holidays/special occasions only Alcohol type: wine Drug use: Occasionally Substance use type: marijuana Details: marijuana Current gender identity: female Do you feel safe at home: Yes Do you feel safe in your relationship?: Yes Additional Social history: no relationship, thats done Exam Narrative Exam Narrative: CONST: Healthy appearing patient, in no acute distress. Well hydrated. Alert and alert. HENMT: Head nomocephalic, normal to inspection. Atraumatic. Hearing grossly normal. EYES: General normal appearance. Alignment normal. Eyelids normal. Conjunctiva normal. Mildly photophobic. NECK: Normal visual inspection. FROM. Trachea midline. No Midline tenderness. CHEST: Normal insepection of the chest. RESP: Normal respiratory effort. Speaking full sentences. No cough. No audible wheezing. No retractions. Breath sounds equal and full bilaterally. No rales, rhonchi or wheezing. CARDIO: No JVD. No murmurs, rubs. Regular rate and rhythm. GI: Abdomen is soft, nontender. Bowel sounds present in all 4 quadrants. No rebound, guarding or peritoneal signs. MUSCULOSKELETAL: Normal Gait. FROM of all extremities. SKIN: Normal. Dry. No rashes. NEURO: Alert and awake. Speech clear. Alert and oriented x 3. Speech is clear. Cranial nerves intact as tested III - XI. Normal [id number] test. No pronator drift. Normal heel-mak test. No Nystagmus. Gait normal. Strength intact in all extremities. Sensation intact in all extremities. PSYCH: Normal affect. Cooperative. Course Vital Signs Vital signs: Vital Signs Temperature 36.2 C L 09/23/19 08:56 Pulse 87 09/23/19 08:56 Respiratory Rate 18 09/23/19 08:56 Blood Pressure 152/95 H 09/23/19 08:56 Pulse Oximetry 96 09/23/19 08:56 Temperature 36.2 C L 09/23/19 08:56 Temperature Source Temporal Artery Scan 09/23/19 08:56 Pulse 87 09/23/19 08:56 Respiratory Rate 18 09/23/19 08:56 Respiratory Effort Non-Labored 09/23/19 08:56 Blood Pressure 152/95 H 09/23/19 08:56 Blood Pressure Position Sitting 09/23/19 08:56 Pulse Oximetry 96 09/23/19 08:56 Oxygen Delivery Method Room Air 09/23/19 08:56 Oxygen Flow Rate 0 09/23/19 08:56 Pain Level 10 09/23/19 08:56
[2019-09-23] MEDS: Ketorolac 15 MG/ML VIAL IVP (09:30)
[2019-09-23] MEDS: Normal Saline 1,000 ML 1000 ML IV (09:30)
[2019-09-23] MEDS: Metoclopramide 10 MG/2 ML VIAL IVP (09:31)
[2019-09-23] MEDS: ACETAMINOPHEN 1,000 MG/100 ML BTL 400 MG IVPB (11:07)
[2019-09-23] MEDS: Dexamethasone 10 MG/ML VIAL IVP (11:08)
[2019-09-23] MEDS: diphenhydrAMINE 50 MG/ML VIAL 12.5 MG IVP (11:09)
[2019-09-23 12:06] VITALS: BP 152/95; PULSE 87; RESP 18; TEMP 36.2; O2SAT 96
== END 2019-09-23 12:04 | disposition home or self-care (01) ==
PROVIDERS: Emergency Provider Physician Assistant; PCP Nurse Practitioner Family
DX: G43.909 Migraine, unspecified, not intractable, without status migrainosus (principal)
CPT/HCPCS: 96361; 96374; 96375; 99284; J0131; J1100; J1200; J1885; J2765

== ENCOUNTER → 2019-10-08 10:21 | Outpatient (BNVA) | payer MEDICARE, MEDICAID, SELFPAY | PROVIDERS: PCP Nurse Practitioner Family; Referring Provider Nurse Practitioner Family; Visit Provider Student in an Organized Health Care Education/Training Program | DX: M17.12 Unilateral primary osteoarthritis, left knee (principal); M25.462 Effusion, left knee | CPT/HCPCS: 20610; 99213 ==

== ENCOUNTER 2019-10-08 16:51 | Outpatient (CLI) | payer MEDICARE, MEDICAID, SELFPAY ==
[2019-10-08 13:06] LABS: Clarity CLOUDY; Source L KNEE
[2019-10-08 13:07] LABS: Nucleated Cells 597 /MM3 (0-0); Polynuclear Cells 27 % (0-0)
[2019-10-08 13:08] LABS: Mononuclear Cells 73 % (0-0)
== END 2019-10-08 17:11 ==
PROVIDERS: PCP Nurse Practitioner Family; Visit Provider Student in an Organized Health Care Education/Training Program
DX: M25.462 Effusion, left knee (principal)
CPT/HCPCS: 87070; 87205; 89051; 89060

== ENCOUNTER 2019-10-26 01:53 | Outpatient (CLI) | payer MEDICARE, MEDICAID, SELFPAY | END 2019-10-26 02:13 | PROVIDERS: PCP Nurse Practitioner Family; Visit Provider Nurse Practitioner Family | DX: R06.02 Shortness of breath (principal) ==

== ENCOUNTER 2019-10-30 02:01 | Emergency (ER) | payer MEDICARE, MEDICAID, SELFPAY ==
[2019-10-30 02:05] VITALS: BP 126/81; PULSE 85; RESP 16; TEMP 36.5; O2SAT 96
--- NOTE | 2019-10-30 02:24 | W.ED.GENAD ---
Discharge Plan Disposition Patient Disposition: HOME Condition: Good Discharge Details Chief Complaint: RespSymp Clinical Impression: Cough, Bronchitis, Migraine Primary Care Provider: Lucy Courtney ED Provider: Ramon Navarro [place] Meds and New Rx's Prescriptions: New prednisone 20 mg tablet 40 mg PO DAILY Qty: 8 RF: 0 azithromycin 250 mg tablet 250 mg PO DAILY Qty: 4 RF: 0 benzonatate [Tessalon Perles] 100 mg capsule 100 mg PO TID PRN (Reason: cough) Qty: 14 RF: 0 Continued dihydroergotamine [Migranal] 1 ML spray,non-aerosol 1 ml NS PRN RF: 0 cetirizine [Zyrtec] 10 MG tablet 10 mg PO DAILY RF: 0 ondansetron HCl [Zofran] 4 MG tablet 4 mg PO PRN RF: 0 meclizine 12.5 MG tablet 12.5 mg PO BID PRNRF: 0 omeprazole 40 MG capsule,delayed release(DR/EC) 40 mg PO BID Qty: 60 RF: 3 venlafaxine 75 MG tablet 225 mg PO DAILY RF: 0 topiramate 100 MG tablet 100 mg PO BID RF: 0 prochlorperazine maleate [Compazine] 5 mg tablet 5 - 10 mg PO Q8H PRN PRN (Reason: migraine) Qty: 30 RF: 1 acetaminophen [Tylenol Extra Strength] 500 mg Tablet 1,000 mg PO PRN PRNRF: 0 Atrovent HFA 1 PUFF HFA aerosol inhaler 1 puff Inhalation Q8H PRNRF: 0 albuterol sulfate [Proventil HFA] 200 PUFF HFA aerosol inhaler 2 puff Inhalation PRN PRNRF: 0 Narcan 4 MG spray,non-aerosol 4 mg NS PRN Qty: 2 RF: 0 clonazepam 1 mg Tablet 1 mg PO BID PRNRF: 0 gabapentin 100 mg Capsule 300 mg PO TID RF: 0 ibuprofen [IBU] 800 mg tablet 800 mg PO Q8H PRN (Reason: pain) Qty: 20 RF: 0 dihydroergotamine [Migranal] 0.5 mg/pump act. (4 mg/mL) [place],Non-Aerosol INTRANASAL RF: 0 aspirin [Aspirin Childrens] 81 mg Tablet,Chewable 81 mg PO DAILY RF: 0 Discharge Instructions Additional Instructions: Please continue your inhalers, may use albuterol inhaler every 4 hours if needed. Take prednisone as directed. May try Tessalon Perles as well as [id number] dextromethorphan (Delsym) for your cough. Take azithromycin as directed. Contact primary care for follow-up at end of week to see how you are doing. Return to ED for high fever, mental status changes, increased difficulty breathing, new or worsening pain. Referrals: Lucy Courtney [Primary Care Provider] - Medical Decision Making Patient presenting because of persistent worsening cough which is now triggered chest and back pain as well as headache. Her chest pain is reproducible. She has some pleuritic component to the pain. However, her revised [place] score makes her low risk and she PERCs out. Her EKG is normal. She has had pain all day so if troponin is negative do not need to worry about ACS. Will give Tessalon and prednisone. Will place IV and give fluids, Toradol, Compazine for migraine headache. Patient's EKG is normal. Troponin is negative. HEART score is 2 so low risk for cardiac event. Chest x-ray does not show pneumonia. Tessalon has not really helped with the cough. Neither did DuoNeb treatment. [id number] medications that she has used did not include dextromethorphan so we can try that. We will put her on a Z-Vik in addition to the prednisone. Her headache is gone and less she is coughing and then she gets throbbing. When the cough stops she does not have headache. She is safe for discharge home. Return to ED for high fever, shortness of breath, neurologic changes, new or worsening pain. Lab Data Lab results reviewed: Yes I reviewed the patient's lab results. ECG Data Attestation: I personally reviewed and interpreted this ECG (s) as follows: Prior ECG tracings: not available for review Interpretation: Sinus rhythm at 78. Normal axis and intervals. Normal ST segments. HPI General Mode of arrival: ambulatory. Date/Time Provider Initiated Documentation: 10/30/19 02:20. Limitations to Documentation: no limitations. Information obtained by: patient and RN notes reviewed. HPI Narrative: Patient presents to ED with complaint of cough, chest pain, back pain. Patient reports being ill with URI for 3 weeks now. Initially had fever with cough but the fever has resolved. Cough continues and is unrelenting. She at times feels short of breath. She has been using her inhalers. They do seem to help. Her chest pain and back pain are worse with cough. She has subsequently developed neck pain and stiffness as well as migraine headache which is a chronic intermittent problem. She has no neurologic changes. She has no previous history of blood clots, and denies leg pain or leg swelling. She has an appointment to see her doctor this afternoon. Related Data Home Medications Medication Instructions Recorded Confirmed venlafaxine 225 mg PO DAILY 05/16/16 10/30/19 topiramate 100 mg PO BID 06/18/16 10/30/19 dihydroergotamine [Migranal] 1 ml NS PRN script 07/07/16 10/30/19 Atrovent HFA 1 puff INHALATION Q8H PRN 12/05/16 10/30/19 albuterol sulfate [Proventil HFA] 2 puff INHALATION PRN PRN 02/15/17 10/30/19 Narcan 4 mg NS PRN #2 spray 09/27/17 10/30/19 cetirizine [Zyrtec] 10 mg PO DAILY tab-cap 01/31/18 10/30/19 meclizine 12.5 mg PO BID PRN 01/31/18 10/30/19 ondansetron HCl [Zofran] 4 mg PO PRN 01/31/18 10/30/19 omeprazole 40 mg PO BID #60 tab-cap 03/31/18 10/30/19 clonazepam 1 mg PO BID PRN 11/29/18 10/30/19 gabapentin 300 mg PO TID 11/29/18 10/30/19 prochlorperazine maleate 5 - 10 mg PO Q8H PRN PRN #30 tab 06/11/19 10/30/19 [Compazine] acetaminophen [Tylenol Extra 1,000 mg PO PRN PRN 07/16/19 10/30/19 Strength] ibuprofen [IBU] 800 mg PO Q8H PRN #20 tab 08/01/19 10/30/19 dihydroergotamine [Migranal] INTRANASAL 09/23/19 10/08/19 aspirin [Aspirin Childrens] 81 mg PO DAILY 10/30/19 10/30/19 azithromycin 250 mg PO DAILY #4 tab 10/30/19 benzonatate [Tessalon Perles] 100 mg PO TID PRN #14 cap 10/30/19 prednisone 40 mg PO DAILY #8 tab 10/30/19 Previous Rx's Medication Instructions Recorded Narcan 4 mg NS PRN #2 spray 09/27/17 omeprazole 40 mg PO BID #60 tab-cap 03/31/18 prochlorperazine maleate 5 - 10 mg PO Q8H PRN PRN #30 tab 06/11/19 [Compazine] ibuprofen [IBU] 800 mg PO Q8H PRN #20 tab 08/01/19 azithromycin 250 mg PO DAILY #4 tab 10/30/19 benzonatate [Tessalon Perles] 100 mg PO TID PRN #14 cap 10/30/19 prednisone 40 mg PO DAILY #8 tab 10/30/19 Allergies Allergy/AdvReac Type Severity Reaction Status Date / Time adhesive Allergy Intermediate gets red Verified 10/08/19 10:37 and welts up codeine Allergy Intermediate Itching Unverified 10/08/19 10:37 oxycodone HCl [From Percocet] Allergy Intermediate Anaphylaxsi Unverified 10/08/19 10:37 s morphine Allergy Itching Verified 10/08/19 10:37 General Stated Complaint: RespSymp CRISTI: 3 Review of Systems Narrative: As documented in HPI otherwise negative as below. Const: no fever, chills, weakness Resp: cough, SOB, pleuritic pain CV: CP; no diaphoresis, edema, syncope GI: no abdominal pain, nausea, vomiting, diarrhea Neuro: headache; no numbness, focal weakness, confusion PFSH Medical History Anxiety Asthma Chronic headache (Acute) Chronic low back pain (Acute) Chronic pain Cigarette smoker Depression Dysphagia Family history of colon cancer GERD (gastroesophageal reflux disease) Hyperthyroidism Intertrigo Left lateral epicondylitis (Inactive) s/p debridement 11/30/18 Lumbar degenerative disc disease (Acute) Migraine Obese Obstructive sleep apnea No CPAP at this time Postmenopausal bleeding PTSD (post-traumatic stress disorder) Syncope Tear of medial meniscus of left knee (Resolved) Aspiration: 04/09/2019; 02/05/19 Depo-Medrol injection: 04/09/2019; 02/05/19 Tendinitis of both rotator cuffs (Inactive 06/30/18) Thyroid nodule TIA (transient ischemic attack) (Inactive) Vertigo Surgical History Colonoscopy - MAC (02/14/18) EGD - MAC (02/14/18) Replacement of total knee joint R Rotator Cuff Repair 2x on R, 1 x on L S/P left knee arthroscopy (Inactive) partial medial menisectomy and trochlear chondroplasty DOS: 05/17/19 Aspiration/Injection: 06/15/19 Social History Smoking/Tobacco Use Status: Current every day Tobacco Type: cigarettes Tobacco: How many years used: 25 Alcohol Intake: current Alcohol Intake frequency: holidays/special occasions only Alcohol type: wine Drug use: Occasionally Substance use type: marijuana Details: marijuana Current gender identity: female Do you feel safe at home: Yes Do you feel safe in your relationship?: Yes Additional Social history: no relationship, thats done Exam Narrative Exam Narrative: Vitals: Afebrile with normal vitals and room air pulse ox. Const: WDWN female in NAD. HEENT: NC/AT. Normal facial exam. TMs clear. Posterior oropharynx with some erythema. No swelling or exudate noted. Eyes: Normal conjunctiva and sclera. Neck: Supple. Trachea midline. No meningeal signs. Lungs: Normal respiratory effort. Lungs are clear. There is no wheezing, rales, rhonchi. Chest wall tender to palpation along bilateral sternal margins. Cor: RRR without murmur/gallop. Good radial pulses. GI: Soft. NT/ND. No guarding or rebound. Back: Some tenderness to the lower thoracic back area. Neuro: A+O x 3. CN II - XII in tact. Normal mental status, speech, strength, gait, sensation. Ext: No C/C/E. No calf tenderness. Skin: Warm and dry. Course Vital Signs Vital signs: Vital Signs Temperature 97.7 F 10/30/19 02:05 Pulse 85 10/30/19 02:05 Respiratory Rate 16 10/30/19 02:05 Blood Pressure 126/81 10/30/19 02:05 Pulse Oximetry 96 10/30/19 02:05 Temperature 97.7 F 10/30/19 02:05 Temperature Source Skin 10/30/19 02:05 Pulse 85 10/30/19 02:05 Respiratory Rate 16 10/30/19 02:05 Blood Pressure 126/81 10/30/19 02:05 Blood Pressure Position Sitting 10/30/19 02:05 Pulse Oximetry 96 10/30/19 02:05 Oxygen Delivery Method Room Air 10/30/19 02:05 Oxygen Flow Rate 0 10/30/19 02:05 Pain Level 10 10/30/19 02:05 Comment 10/30/19 02:05
[2019-10-30] MEDS: Prochlorperazine 10 MG/2 ML VIAL IVP (02:54)
[2019-10-30] MEDS: Normal Saline 1,000 ML 1000 ML IV (02:54)
[2019-10-30] MEDS: predniSONE 20 MG TAB 60 MG PO (02:54)
[2019-10-30] MEDS: Benzonatate 100 MG CAP PO (02:55)
[2019-10-30] MEDS: Ketorolac 30 MG/ML VIAL IVP (02:55)
[2019-10-30 03:16] LABS: Troponin I < 0.05 ng/Ml (<0.06)
--- NOTE | 2019-10-30 03:20 | DI.RAD_ITS ---
EXAM: XR CHEST 2V PA LATERAL INDICATION: cough/SOB. COMPARISON: XR CHEST 2V PA LATERAL from 06/06/2019 TECHNIQUE: 2D digital imaging was performed. FINDINGS: The heart size and pulmonary vasculature are within normal limits and stable. There is stable peribr onchial thickening. No focal consolidating infiltrates are seen. No pleural effusions or pneumothor aces are present. Degenerative changes are seen in the spine. IMPRESSION: No acute pulmonary process.
--- NOTE | 2019-10-30 03:30 | DI.VRAD_ITS ---
PROCEDURE INFORMATION: Exam: XR Chest, 2 Views Exam date and time: 10/30/2019 2:42 AM Age: 49 years old Clinical history: Cough and shortness of breath; Patient HX: Cough, SOB TECHNIQUE: Imaging protocol: XR of the chest Views: 2 views. COMPARISON: CR XR CHEST 2V PA LATERAL 06/06/2019 3:53 PM FINDINGS: Lungs: Mild peribronchial thickening/interstitial thickening, grossly stable. No consolidation. Pleural space: Unremarkable. No pleural effusion. No pneumothorax. Heart/Mediastinum: Unremarkable. No cardiomegaly. Bones/joints: Unremarkable. IMPRESSION: Grossly stable radiographic appearance to the chest No radiographic evidence for pneumonia Dictated and Authenticated by: Denzel Ryder MD. Ordering:JAREK Navarro MD
[2019-10-30 03:40] VITALS: RESP 8
[2019-10-30] MEDS: Albuterol/Ipratropium 3 ML UPD VIAL (03:40)
[2019-10-30] MEDS: Azithromycin 250 MG TAB 500 MG PO (04:22)
[2019-10-30 04:28] VITALS: BP 129/52; PULSE 96; RESP 18; TEMP 36.7; O2SAT 96
--- NOTE | 2019-10-30 04:29 | NUR.NOTE ---
IV removed. Pt having intermittent coughing. Speaking in full sentences. Tony PO's. Discharge instructions reviewed with verbal understanding. aware to f/u with pcp as needed. ambulated to exit with steady gait.
== END 2019-10-30 04:35 | disposition home or self-care (01) ==
PROVIDERS: Emergency Provider Emergency Medicine; PCP Nurse Practitioner Family
DX: J44.0 Chronic obstructive pulmonary disease with (acute) lower respiratory infection (principal); J20.9 Acute bronchitis, unspecified; J45.909 Unspecified asthma, uncomplicated; R07.89 Other chest pain; G43.909 Migraine, unspecified, not intractable, without status migrainosus; F17.210 Nicotine dependence, cigarettes, uncomplicated
CPT/HCPCS: 36415; 93005; 94640; 96361; 96374; 96375; 99285; 71046; 84484; 93010; 99284; J0780; J1885; J7512; J7620

== ENCOUNTER 2019-11-08 09:07 | Outpatient (CLI) | payer MEDICARE, MEDICAID, SELFPAY ==
--- NOTE | 2019-11-08 10:44 | DI.RAD_ITS ---
EXAM: XR STANDING ALIGNMENT INDICATION: pre op. COMPARISON: No exams were available for comparison TECHNIQUE: 2D digital imaging was performed. Standing AP views were performed from the pelvis throu gh the ankles. FINDINGS: The hip joint spaces are well maintained. There is no significant leg length discrepancy at the leve l of the femoral heads. There is a right total knee prosthesis. There are severe degenerative luu es of the medial femoral tibial joint of the left knee, causing varus angulation. Degenerative luu es are seen at the right ankle. IMPRESSION: Severe degenerative changes of medial femoral tibial joint of the left knee.
== END 2019-11-08 09:27 ==
PROVIDERS: PCP Nurse Practitioner Family; Visit Provider Student in an Organized Health Care Education/Training Program
DX: M25.562 Pain in left knee (principal); M17.12 Unilateral primary osteoarthritis, left knee; M19.071 Primary osteoarthritis, right ankle and foot; Z96.651 Presence of right artificial knee joint
CPT/HCPCS: 77073

== ENCOUNTER 2019-11-08 14:52 | Outpatient (CLI) | payer MEDICARE, MEDICAID, SELFPAY ==
[2019-11-08 15:27] LABS: HCT 44.8 % (36.0-46.0); HGB 14.5 g/dL (12.0-15.5); Mean Corp. HGB Concentration 32.4 g/dL (32.0-36.0); Mean Corpuscular Hemoglobin 29.2 pg (27.0-33.0); Mean Corpuscular Volume 90.3 fL (80-95); Mean Platelet Volume 9.5 fL (8.0-11.0); Platelet Count 341 x1000/uL (130-400); RBC 4.96 m/cumm (4.00-5.20); RBC Distribution Width 14.6 % (11.7-14.6); White Blood Cell Count 10.14 k/cumm (4.4-10.8)
[2019-11-08 15:57] LABS: BUN 14 mg/dL (7-18); CREATININE 0.94 mg/dL (0.55-1.02); Calcium 9.1 mg/dL (8.5-10.1); Chloride 102 mmol/L (98-107); Glucose 97 mg/dL (74-106); Potassium 4.4 mmol/L (3.5-5.1); Sodium 139 mmol/L (136-145)
[2019-11-08 16:00] LABS: Magnesium 1.9 mg/dL (1.8-2.4)
[2019-11-08 16:11] LABS: NT-proBNP 13 pg/mL (<300)
[2019-11-08 16:20] LABS: Troponin I < 0.05 ng/Ml (<0.06)
== END 2019-11-08 15:12 ==
PROVIDERS: Internal Medicine; Nurse Practitioner Family; PCP Nurse Practitioner Family; Visit Provider Student in an Organized Health Care Education/Training Program
DX: M25.562 Pain in left knee (principal); M17.12 Unilateral primary osteoarthritis, left knee; R06.02 Shortness of breath; E83.42 Hypomagnesemia; Z01.818 Encounter for other preprocedural examination; Z01.812 Encounter for preprocedural laboratory examination; M19.071 Primary osteoarthritis, right ankle and foot; Z96.651 Presence of right artificial knee joint
CPT/HCPCS: 36415; 80048; 85027; 77073; 83735; 83880; 84484

== ENCOUNTER → 2019-11-14 08:08 | Outpatient (BNVA) | payer MEDICARE, MEDICAID, SELFPAY | PROVIDERS: PCP Nurse Practitioner Family; Referring Provider Nurse Practitioner Family; Visit Provider Student in an Organized Health Care Education/Training Program | DX: R69 Illness, unspecified (principal) ==

== ENCOUNTER 2019-11-14 10:46 | Inpatient (IN) | payer MEDICARE, MEDICAID, SELFPAY ==
[2019-11-08 13:08] VITALS: BP 136/85; PULSE 106; RESP 18; TEMP 37.2; O2SAT 95
--- NOTE | 2019-11-08 14:32 | CMPROGNOTE_ITS ---
- If Service Date Differs Date of service: 11/08/19 Time of Service: 14:32 Care Management Progress Note CM met with Dinesh during her pre op appointment for her Left Knee Replacement scheduled for 11/14/[address] Brunson. Dinesh lives in a one level mobile home with her partner and her adult son. She works at the [employer], seasonally from February to September. She is currently laid off. She is independent at baseline with no services in the community currently. She has had a previous surgery, replacing her right knee. CM asked how the previous surgery went, which she responded that it was very painful. She stated that she has a FWW that she has on loan from the [facility]. CM advised that she bring it in to be evaluated and fitted by PT. Dinesh expressed concern regarding bathing, which CM suggested that she talk with her provider regarding limitations post surgery. Dinesh's PCP is Lucy Courtney. She has [facility] and [facility] for insurance. She was not interested in the portal. She already has an AD on file with Alexandr John (son) and Loni Gonzalez (daughter) both listed as agents. CM will continue to follow and support discharge planning considerations.
[2019-11-14] VITALS (11 sets, daily range): BP systolic 93–157; BP diastolic 59–98; PULSE 64–82; RESP 13–19; TEMP 36.5–37; O2SAT 91–99
[2019-11-14] MEDS: Acetaminophen 500 MG TAB 1000 MG PO ×2 (11:32→20:21)
[2019-11-14] MEDS: Celecoxib 200 MG CAP 400 MG PO (11:32)
[2019-11-14] MEDS: Gabapentin 300 MG CAP PO (11:33)
[2019-11-14] MEDS: Lactated Ringers 1,000 ML 80 ML IV ×3 (11:38→16:57)
[2019-11-14] MEDS: ceFAZolin 3,000 MG in Normal Saline 100 ML 200 MG IVPB (13:03)
[2019-11-14] MEDS: Ketorolac 30 MG/ML VIAL (14:40)
[2019-11-14] MEDS: Bupivacaine 0.25% Pres-Free 30 ML VIAL (14:40)
[2019-11-14] MEDS: Normal Saline 50 ML (14:40)
[2019-11-14] MEDS: HYDROmorphone 2 MG TAB PO ×2 (18:33→23:51)
[2019-11-14] MEDS: Topiramate 100 MG TAB PO (20:20)
[2019-11-14] MEDS: Aspirin E.C. 81 MG TABEC PO (20:20)
[2019-11-14] MEDS: Omeprazole 20 MG CAPCR 40 MG PO (20:20)
[2019-11-14] MEDS: Ketorolac 15 MG/ML VIAL IVP (20:21)
[2019-11-14] MEDS: Gabapentin 100 MG CAP 300 MG PO (20:21)
[2019-11-14] MEDS: Normal Saline Flush 10 ML SYR IV (20:22)
[2019-11-14] MEDS: ceFAZolin 1 GM/50 ML BAG IVPB (20:22)
--- NOTE | 2019-11-14 22:02 | W.PM.OP ---
Date of service: 11/14/19 Time of Service: 15:02 Operative Note Operative Note PRE-OP DIAGNOSIS: Left Knee Osteoarthritis POST-OP DIAGNOSIS: same PROCEDURE: Left Total Knee Replacement SURGEON: Junior Brunson SENIOR REGULATORY AFFAIRS SPECIALIST: Candy Byrne ANESTHESIA: regional and spinal ESTIMATED BLOOD LOSS: 200 PATHOLOGY: none sent TOURNIQUET TIME: 37 COMPLICATIONS: None Patient was transported to: PACU Patient's condition: stable Implants: 1. Depuy Attune Posterior Stabilized Femoral Component, Size 5 2. Depuy Attune Fixed Platform Tibial Component, Size 3 3. Depuy Attune 5x7mm Fixed, Stabilized Poly 4. Depuy Attune Patellar Component, Size 35 Indications: I have seen Dinesh in clinic for symptoms of left knee arthritis, confirmed with radiographic findings. She has exhausted nonoperative methods and was having significant limitations in daily function and desired better function and less pain. I discussed the technical details of a knee replacement. I explained the risks of the procedure to include, but not limited to, bleeding, infection, pain, stiffness, fracture, damage to nerves and vessels, damage to muscles and tendons, loosening, need for repeat procedure, blood clot and cardiopulmonary demise. Despite these risks, Dinesh elected to proceed. Findings: There was significant signs of arthritis throughout the knee. The medial femur was completely eburnated with osteophytes present. The entirety of the patella had significant chondromalacia and there was some mild hypoplasia of the lateral femur. Procedure Description: Dinesh was greeted in the preoperative holding area where the correct side was identified and marked. The consent was reviewed with the patient and signed. The history and physical was updated. All questions were answered. Preoperative mediacations were administered: Acetaminophen 1000mg, Celebrex 400mg, and Gabapentin 300mg. An adductor canal block was then administered by the anesthesia team in the PACU. Dinesh was taken back to the operating room. A spinal anesthestic was then administered. The patient was placed into the supine position on the operating room table. A nonsterile tourniquet was placed high onto the leg but only used for cementing. Posts were placed for positioning during the procedure. All bony prominences were well padded. Prophylactic antibiotics in the form of cefazolin were administered. 1g of Tranxemic Acid was given intravenously within 30 minutes of incision. The left leg was then prepped with Chloraprep and draped in a standard fashion with impervious stockinette and extremity drape. A second prep with Chloraprep was performed prior to placing Ioband. A timeout to confirm correct identity, side and site, procedure, allergies, anesthesia, and medical concerns was performed. With the knee in some flexion, a midline incision was made overlying the knee. Full thickness skin flaps were raised once the extensor mechanism was encountered. These were raised medially and laterally. Any bleeding was controlled with electrocautery. Once the extensor mechanism was fully exposed, a medial parapatellar arthrotomy was performed in a flexed position. All bleeding from the arthrotomy and the geniculate arteries was coagulated. A medial subperiosteal peel was performed with electrocautery to the midcoronal plane. The fat pad was removed while keeping the patellar tendon protected. The anterior distal femur synovium was removed for later visualization. The ACL and PCL were resected and the anterior horn of the lateral meniscus was transected. The knee was then flexed with the patella everted. Large osteophytes from the tibia were removed. Large osteophytes from the femur were removed. Using a step drill, and based on preoperative templating, the femoral canal was entered. This was done with a step drill without any difficulty. The intramedullary distal femoral cut guide was inserted, set to a 5 degree valgus cut and 9mm cut thickness. There was some hypoplasia of the lateral femoral condyle and any remnant cartilage of the medial femoral condyle was removed for appropriate thickness. The distal femoral cut guide was then held in position and pinned. With the soft tissues protected, the distal cut was performed. This was passed over a few times to ensure a planar cut. I then turned attention to the tibia. The extramedullary guide was placed onto the leg. The distal aspect was slid medial to adjust for position of center of ankle and stay in line with shaft of the tibia. Approximately 3-5 degrees of posterior slope was kept in the proximal cutting guide. The center of the guide was aligned with the PCL. The stylus was used to assess cut thickness. The medial side, most involved side, was set for a 4mm cut. This was then held in position and pinned into place with 2 additional pins and a cross pin for stability. The medial and lateral collateral ligaments were protected and the cut was performed. With this completed, it was assessed and noted to be of appropriate dimensions. The guide was removed. A spacer block was inserted and the knee was brought into extension. The 7mm spacer block provided full extension, without hyperextension and with stability of both the medial and lateral collateral ligaments was assessed. The pins from the femur and the tibia were then removed. The distal femur was then sized. The anterior stylus was placed onto the lateral ridge of the anterior femur. This indicated a size 5 femur. The external rotation of the guide was adjusted to 5 degrees to match the epicondylar axis, perpendicular to Gonzalez?s line. The 4-in-1 cutting guide was the placed. The posterior medial femur cut was evaluated and appeared of good thickness. The spacer block was inserted underneath the cutting guide and stability was confirmed in 90 degrees of flexion. An fany wing was used to confirm appropriate position of the anterior cut to avoid notching. This cutting guide was ensured to be flush on the cut surface and then pinned into place with headed pins. While protecting the soft tissues, quad tendon, and collateral ligaments, the anterior and posterior cuts were performed with a saw. The central two pins were removed and the posterior and anterior chamfers were cut next. The notch-cutting guide was placed. This was pinned to lateralize the femoral component as much as possible while keeping it flush on the cut surface. This was then pinned into position. A reciprocating saw was used to make the notch cut. A rasp smoothed the cut surfaces. A trial posterior stabilized femoral component was then inserted, impacted down to the cut surfaces, and the lug holes were drilled. A provisional trial tibial component was placed and the knee was brought through range of motion. The polyethylene was trialed until there was good flexion and extension with excellent stability to the medial and lateral collaterals. The patella was tracking without thumbs. The tibial cut surface was fully exposed. The medial and lateral menisci were removed. The tibia was then sized as a 3. The tibia had been previously marked during trialing to correspond to the center of the tibial component to help with rotation. The trial was aligned to this john, approximately rotated to the medial 1/3rd of the tibial tubercle. There was some undercoverage of the tibial tray but it provided better rotation. The size 4, more appropriately sized from medial to lateral, when rotated, overhung the posterior lateral tibia. Therefore size 3 was selected. The trial was pinned into place. The tibia was prepared with a reamer and a keel punch. The knee was then brought into extension and the patella was measured as 25 mm. Using the patellar clamp and cut guide, this was resected to a flat surface with at least 13mm of thickness remaining. The size 35 patella fit the best. This was oriented and then clamped into position. The lugs were drilled. The trial components were removed. The final components, except for the polyethylene were opened on the back table. The periosteal and capsular tissues, especially posteriorly, around the knee were then systematically injected with a periarticular cocktail consisting of 50cc 0.25% Marcaine, 30mg Ketorolac, 20cc of Exparal and 50cc of injectable saline. The tourniquet was then inflated to 275mmHg. The knee was thoroughly irrigated with a pulse lavage and dried. On the back table, with the implants opened, the cement was mixed. 2 batches of antibiotic laden cement were prepared with vacuum assistance. After the cement was ready it was placed on to the back side of the tibial component. A small amount was placed onto the posterior flange of the femur. Cement was manual pressurized and impregnated into the cut surface of the tibia. The tibial component was then inserted into the cut surface and impacted into position. Excess cement was removed and the component was reimpacted. Again, excess cement was removed and our attention was then turned to the femur. The femoral cut surface was once again dried and cement was manually impacted into the cut surface. The femoral component was lined with the lug holes and impacted. Excess cement was removed. It was ensured to be down against the cut surface. The trial polyethylene was then inserted and the leg was brought out into full extension for the duration of the cement curing process, approximately 15min. Cement was lastly manually impacted into the cut surface of the patella and the patellar button was clamped into position and held. During this process attention was turned to the gutters of the knee and for all interfaces for any excess cement. While the cement was hardening, the knee was irrigated with Irrisept chlorhexadine solution. It was allowed to sit in the knee for 3 minutes. After the cement had finally cured, approximately 15min, the clamp was removed from the patella and the knee was taken through range of motion. A size 7 mm polyethylene component provided the best range of motion and stability with less than 2mm gapping with medial and lateral stress and full extension without significant hyperextension. The patella was tracking with a no-thumbs technique. The trial poly was removed and once again the knee was checked for any loose, excess, or errant cement. The poly component was then inserted and impacted into position after cleaning and drying the tibial tray. The capsule was then reapproximated with a No. 1 Vicryl at multiple locations. The capsule was finally closed with a No. 2 Stratafix, barbed suture. The tourniquet was then released and the arthrotomy appeared watertight without significant bleeding. The second dosing of 1g TXA was started. Deep tissues were then reapproximated with 0 Vicryl and 2-0 Vicryl. The skin was closed with a running 3-0 Monocryl in a subcuticular fashion. This was reinforced with skin glue. A Mepilex silver dressing was applied along with a jfky-[id number] SERGIO wrap. A CryoCuff was applied. Dinesh was transferred to the hospital bed without difficulty an suffering no apparent complication. Truda has a good prognosis. Physical therapy will start today and without restrictions, weight-bearing as tolerated. Aspirin 81mg BID will be used for DVT prophylaxis.
--- NOTE | 2019-11-14 22:46 | NUR.NOTE ---
Nursing Note: Pt received from PACU staff, alert and oriented x 3. Post Left total knee replacement., drsg C/D/I. Ambulates in the hallway every hour, then complained of back pain, getting anxious due to casper, wanted the typewriters functional tester to take it out and stated if not she will pull it out tonight. Pt has good amount of urine output. Casper removed as insisted. charge master coordinator aware.
[2019-11-15] MEDS: Ketorolac 15 MG/ML VIAL IVP ×2 (01:43→08:20)
[2019-11-15] MEDS: HYDROmorphone 2 MG TAB PO ×3 (03:05→10:12)
[2019-11-15] MEDS: ceFAZolin 1 GM/50 ML BAG IVPB (03:06)
[2019-11-15 03:38] VITALS: BP 129/86; PULSE 69; RESP 18; TEMP 36.9; O2SAT 95
[2019-11-15] MEDS: Loperamide 2 MG CAP 4 MG PO (03:40)
[2019-11-15] MEDS: Lactated Ringers 1,000 ML 80 ML IV (06:51)
[2019-11-15 07:29] VITALS: BP 105/71; PULSE 72; RESP 17; TEMP 36.9; O2SAT 97
--- NOTE | 2019-11-15 08:10 | W.PM.DS.N ---
Date of service: 11/15/19 Time of Service: 08:13 DS: Diagnosis Discharge Diagnosis (1) Left knee DJD: Status: Chronic Discharge Plan Disposition Patient Disposition: HOME Condition: Good Discharge Details Reason For Visit: (L) KNEE TOTAL Admit Date/Time: 11/14/19 10:46 Admit Provider: Junior Brunson Attending Provider: Junior Brunson Primary Care Provider: Lucy Courtney [facility] Hospital Course: Patient was admitted to the medical/surgical floor following the procedure. It was tolerated well without any notable medical, surgical, or anesthetic complications. Mobilization began postoperatively. The casper catheter was removed and voiding spontaneously. Vitals were stable. Physical therapy worked with the patient and was cleared for discharge home. No acute medical issues. Home Meds and New Rx's Prescriptions: New aspirin 81 mg tablet,delayed release (DR/EC) 81 mg PO BID Qty: 60 RF: 0 acetaminophen 500 mg tablet 1,000 mg PO Q8H PRN (Reason: pain) Qty: 90 RF: 3 hydromorphone 4 mg tablet 4 mg PO Q4H PRN (Reason: pain) Qty: 18 RF: 0 ibuprofen 800 mg tablet 800 mg PO Q8H PRN (Reason: pain) Qty: 90 RF: 3 Continued cetirizine [Zyrtec] 10 MG tablet 10 mg PO DAILY RF: 0 ondansetron HCl [Zofran] 4 MG tablet 4 mg PO PRN RF: 0 meclizine 12.5 MG tablet 12.5 mg PO DAILY RF: 0 omeprazole 40 MG capsule,delayed release(DR/EC) 40 mg PO BID Qty: 60 RF: 3 topiramate 100 MG tablet 100 mg PO BID RF: 0 prochlorperazine maleate [Compazine] 5 mg tablet 5 - 10 mg PO Q8H PRN PRN (Reason: migraine) Qty: 30 RF: 1 venlafaxine 225 mg Tablet Extended Release 24hr 225 mg PO DAILY RF: 0 Atrovent HFA 1 PUFF HFA aerosol inhaler 1 puff Inhalation Q8H PRNRF: 0 albuterol sulfate [Proventil HFA] 200 PUFF HFA aerosol inhaler 2 puff Inhalation PRN PRNRF: 0 Narcan 4 MG spray,non-aerosol 4 mg NS PRN Qty: 2 RF: 0 clonazepam 1 mg Tablet 1 mg PO BID PRNRF: 0 gabapentin 100 mg Capsule 300 mg PO TID RF: 0 benzonatate [Tessalon Perles] 100 mg capsule 100 mg PO TID PRN (Reason: cough) Qty: 14 RF: 0 Discontinued dihydroergotamine [Migranal] 1 ML spray,non-aerosol 1 ml NS PRN RF: 0 tramadol 50 mg tablet 50 mg PO Q6H PRN (Reason: pain) Qty: 12 RF: 0 acetaminophen [Tylenol Extra Strength] 500 mg Tablet 1,000 mg PO PRN PRNRF: 0 ibuprofen [IBU] 800 mg tablet 800 mg PO Q8H PRN (Reason: pain) Qty: 20 RF: 0 aspirin [Aspirin Childrens] 81 mg Tablet,Chewable 81 mg PO DAILY RF: 0 Discharge Instructions Additional Instructions: Dr. Brunson?s Total Knee Discharge Instructions Activity: The most important activity is to walk. You should try to take short walks a few times a day. It is important that when resting you work on keeping the knee straight. Avoid putting a pillow behind the knee as this will encourage flexion. Work on range of motion exercises as provided by Physical Therapy. - Start outpatient physical therapy within 2 weeks. - You should wear the DREAD hose on both legs for 2 weeks. Dressing: Keep the surgical dressing in place for at least one week. After the first week it may be removed and replace with light gauze and tape or nothing. It may get wet after 3 days but avoid soaking the dressing. If it gets wet, just lightly pat dry. Medications: - You should take Tylenol and anti-inflammatory Ibuprofen as your primary pain control medications - You have been prescribed a stronger pain medication Hydromorphone for breakthrough pain, take as needed as prescribed. - You have should continue your stomach acid reduction agent Omeprazole to help reduce stomach acid and reflux. - You will be taking Aspirin 81mg twice a day for DVT prevention unless instructed otherwise. - If you have constipation you should take Colace or Miralax (both [id number]). It takes most people 3-4 days to have a bowel movement. Follow-up: 2 weeks Stand Alone Forms: Nursing Discharge Form Referrals: Junior Brunson MD [ [facility] STAFF PHYSICIAN] - 12/03/19 8:30 am Activity:: Activity as Tolerated Equipment/Supplies:: Walker Diet:: As Tolerated Discharge Orders Discharge Orders: Discharge Order (Routine); Ordered 11/15/19 Ordered By: Junior Brunson DS: Summary Status at Discharge Functional status at discharge: uses cane/walker Overall status at discharge: patient is progressing back to baseline Mental Status: mental status grossly normal Speech and Movement: speech and movement normal Mood: congruent mood Affect: normal affect Exam Psych Mental Status: mental status grossly normal Speech and Movement: speech and movement normal Mood: congruent mood Affect: normal affect DS: Data Vitals/I&O Vitals and I&O: Vital Signs Temperature 36.9 C 11/15/19 03:38 Temperature Source Tympanic 11/15/19 03:38 Pulse 69 11/15/19 03:38 Pulse Rhythm Regular 11/14/19 23:25 Respiratory Rate 18 11/15/19 03:38 Respiratory Effort Non-Labored 11/14/19 23:25 Respiratory Depth Normal 11/14/19 23:25 Respiratory Pattern Normal 11/14/19 23:25 Blood Pressure 129/86 11/15/19 03:38 Pulse Oximetry 95 11/15/19 03:38 Respiratory End-tidal CO2 32 11/14/19 16:04 Oxygen Delivery Method Room Air 11/15/19 03:38 Oxygen Flow Rate 0 11/15/19 03:38 Pain Level 9 11/15/19 06:50 Intake & Output 11/14/19 11/14/19 11/15/19 11:59 23:59 11:59 Intake Total 2619.333 / 2619.333 1526.667 / 1526.667 Output Total 1950 / 1950 Balance 669.333 / 176.014 6183.667 / 1526.667 Weight 117 kg 117 kg Intake: IV 2379.333 / 2379.333 786.667 / 786.667 Oral 240 / 240 740 / 740 Output: Urine 1750 / 1750 Estimated Blood Loss 200 / 200 Other: Urine Color Light Juanita Yellow Urine Appearance Clear Clear Stool Size Large Large Stool Characteristics Liquid Liquid Brown Brown Emesis Description None Voiding Methods Toilet [facility] Medical History Anxiety treated Asthma Chronic headache (Acute) Chronic low back pain (Acute) Chronic pain Cigarette smoker Depression Family history of colon cancer GERD (gastroesophageal reflux disease) Hyperthyroidism Intertrigo Left lateral epicondylitis (Inactive) s/p debridement 11/30/18 Lumbar degenerative disc disease (Acute) Migraine Obese Obstructive sleep apnea No CPAP at this time Postmenopausal bleeding resolved PTSD (post-traumatic stress disorder) Syncope Tear of medial meniscus of left knee (Resolved) Aspiration: 04/09/2019; 02/05/19 Depo-Medrol injection: 04/09/2019; 02/05/19 Tendinitis of both rotator cuffs (Inactive 06/30/18) Thyroid nodule TIA (transient ischemic attack) (Inactive) 06/15 Vertigo Surgical History Colonoscopy - MAC (02/14/18) EGD - MAC (02/14/18) Replacement of total knee joint R Rotator Cuff Repair 2x on R, 1 x on L, pt report 2 on the left side S/P left knee arthroscopy (Inactive) partial medial menisectomy and trochlear chondroplasty DOS: 05/17/19 Aspiration/Injection: 06/15/19 Status post left rotator cuff repair (Inactive) DOS: 11/30/2018 Dr. Brunson corticosteroid injection: 02/21/19 Family History Father Rheumatoid arthritis Brother Rheumatoid arthritis Social History Smoking/Tobacco Use Status: Current every day Tobacco Type: cigarettes Tobacco: How many years used: 25 Alcohol Intake: current Alcohol Intake frequency: holidays/special occasions only Alcohol type: wine Drug use: Occasionally Substance use type: marijuana Details: marijuana Current gender identity: female Do you feel safe at home: Yes Do you feel safe in your relationship?: Yes Additional Social history: no relationship, thats done
[2019-11-15] MEDS: Cetirizine 10 MG TAB PO (08:21)
[2019-11-15] MEDS: Gabapentin 100 MG CAP 300 MG PO (08:21)
[2019-11-15] MEDS: Omeprazole 20 MG CAPCR 40 MG PO (08:21)
[2019-11-15] MEDS: Meclizine 12.5 MG TAB PO (08:21)
[2019-11-15] MEDS: Acetaminophen 500 MG TAB 1000 MG PO (08:21)
[2019-11-15] MEDS: Aspirin E.C. 81 MG TABEC PO (08:21)
[2019-11-15] MEDS: Topiramate 100 MG TAB PO (08:22)
--- NOTE | 2019-11-15 09:27 | NUR.NOTE ---
Nursing Note: 0830: RN educate pt to importance of keeping wound and incisional area clean and dry. pt has a new puppy; RN educates to importance of keeping clothing and a blanket between pt and puppy. pt states puppy is very clean and is bathed weekly. pt states she will be cutting up 2 deer on Tuesday that she harvested last week. RN expresses concern with blood getting on or near dressing and incisional area. pt states she will use a vacuum seal bag over my knee and will tape it around my leg.
[2019-11-15] MEDS: Ondansetron 4 MG/2 ML VIAL IVP (10:13)
[2019-11-15] MEDS: Normal Saline Flush 10 ML SYR IV (10:13)
--- NOTE | 2019-11-15 10:29 | IN_ITS ---
Date of service: 11/15/19 Time of Service: 09:40 PT Notes Visit Reasons: (L) KNEE TOTAL Physical Therapy Inpatient Initial Evaluation Date: 11/15/2019 Junior Brunson MD Referring Doctor: PT Orders: PT CONSULT: Status post Ortho surgery. Status post left TKA. Precautions: Fall. Standard. WBAT on left LE. Patient Profile/Admitting Diagnosis: Patient is a 49-year-old female with primary unilateral osteoarthritis of left knee and is status post left total knee arthroplasty on postoperative day 1. PMHX: Medical History Anxiety treated Asthma Chronic headache (Acute) Chronic low back pain (Acute) Chronic pain Cigarette smoker Depression Family history of colon cancer GERD (gastroesophageal reflux disease) Hyperthyroidism Intertrigo Left lateral epicondylitis (Inactive) s/p debridement 11/30/18 Lumbar degenerative disc disease (Acute) Migraine Obese Obstructive sleep apnea No CPAP at this time Postmenopausal bleeding resolved PTSD (post-traumatic stress disorder) Syncope Tear of medial meniscus of left knee (Resolved) Aspiration: 04/09/2019; 02/05/19 Depo-Medrol injection: 04/09/2019; 02/05/19 Tendinitis of both rotator cuffs (Inactive 06/30/18) Thyroid nodule TIA (transient ischemic attack) (Inactive) Vertigo Surgical History Colonoscopy - MAC (02/14/18) EGD - MAC (02/14/18) Replacement of total knee joint R Rotator Cuff Repair 2x on R, 1 x on L, pt report 2 on the left side S/P left knee arthroscopy (Inactive) partial medial menisectomy and trochlear chondroplasty DOS: 05/17/19 Aspiration/Injection: 06/15/19 Status post left rotator cuff repair (Inactive) DOS: 11/30/2018 Dr. Brunson corticosteroid injection: 02/21/19 Social History/Home Situation: Patient lives with significant other in a 1 floor house with 4 steps to enter and rails on both sides. She states that she is on disability. She did say that she worked as a nighttime security and compliance analyst at [email or web address] and is hoping to come back again in February 2020. She is independent with all aspects of ADLs without an assistive ambulatory device. She loves hunting. She is hoping that she can do ice fishing as early as November 28, 2019. Equipment Owned/DME: Front wheeled walker Subjective: Patient reports pain on left knee but emphasizes that she needs to brave the pain as she wants to go home today. She denies any nausea, lightheadedness, nor dizziness at time of evaluation. Objective: General Observation: Cryocuff on left knee. SERGIO wraps on left LE. TEDS on right leg. Mental Status: Alert and oriented x4 Pain: 9/10 on left knee with movement and weight bearing. ROM: Right Upper Extremity: Shoulder Flexion WFL. Shoulder abduction WFL. Elbow flexion WFL. Wrist flexion WFL. Opening and closing of hand WFL. Left Upper Extremity: Shoulder Flexion WFL. Shoulder abduction WFL. Elbow flexion WFL. Wrist flexion WFL. Opening and closing of hand WFL. Right Lower Extremity: Hip flexion WFL. Hip abduction WFL. Knee flexion WFL. Ankle dorsiflexion WFL. Ankle plantarflexion WFL. Left Lower Extremity: Hip flexion WFL. Hip abduction WFL. Knee flexion -5 degrees to 100 degrees. Knee extension -5 degrees. Ankle dorsiflexion WFL. Ankle plantarflexion WFL. Strength: Right Upper Extremity: Shoulder flexors 5/5. Shoulder abductors 5/5. Elbow flexors 5/5. Elbow extensors 5/5. Digital Watch Assembler strong. Left Upper Extremity: Shoulder flexors 5/5. Shoulder abductors 5/5. Elbow flexors 5/5. Elbow extensors 5/5. Digital Watch Assembler strong. Right Lower Extremity: Hip flexors 5/5. Hip abductors 5/5. Knee flexors 5/5. Knee extensors 5/5. Ankle dorsiflexors 5/5. Ankle plantarflexors 5/5. Left Lower Extremity:Hip flexors 5/5. Hip abductors 5/5. Knee flexors 3-/5. Knee extensors 3-/5. Ankle dorsiflexors 5/5. Ankle plantarflexors 5/5. Sensation: Intact as to pain and pressure on bilateral lower extremities. Bed Mobility/Transfers: Rolling independent Supine to sit independent Sit to supine independent Sit to stand independent Stand to sit independent Bed to chair independent Chair to bed independent Gait: Patient negotiated level surface ambulation of 300 feet with front wheeled walker requiring only supervision from PT and minimal verbal cues for walker management and directional changes. Mild antalgic gait noted. Patient did report 9/10 pain but did not need to stop. Balance: Static Sitting: Normal Dynamic Sitting: Normal Static Standing: Fair Dynamic Standing: Fair Special Tests: Mobility Limitations Standardized Measure [facility] AM-PAC 6 clicks Basic Mobility Inpatient Short Form: Raw Score: 24 CMS Score: 0% deficit Informed Consent/Education: Patient instructed in purpose of PT consult and plan of care. Patient was educated and instructed on safe performance of supine exercises consisting of gluteal and quadrcieps setting, and heel slides. Standing level heel raises as well as partial knee bends were also done with patient. Patient was also instructed about exercise progression to be given at outpatient physical therapy. Assessment: Patient is a 49-year-old female with primary unilateral osteoarthritis of left knee and is status post left total knee arthroplasty on postoperative day 1. Patient is very motivated to return home and regain prior level of function. She has a supportive significant other. Her prognosis for regaining prior level of function is good. Patient presents with clinical signs and symptoms consistent with current/admitting diagnoses that have resulted to mobility limitations, gait instability, generalized weakness, and impairment of motor control as demonstrated by the following impairment level findings: 1. Decreased strength to left knee major muscle groups 2. Impaired standing balance 3. Impaired activity tolerance 4. Limitation of joint range of motion in left knee Impairments are contributing to the following functional limitations: 1. Inability to safely ambulate without assistive device and physical assistance 2. Increase completion time for mobility ADL performance 3. Increased fall risk 4. Inability to negotiate steps alone safely Patient is assessed as a [id number] moderate complexity based on the following: History: Patient is a 49-year-old female with primary unilateral osteoarthritis of left knee and is status post left total knee arthroplasty on postoperative day 1 presenting with impairment level findings, functional limitations and past medical history as indicated above Examination: Demonstrable impairment in strength, balance, and range of motion with underlying impairments and functional limitations as documented above Presentation: Evolving Decision Makin moderate complexity Goals: N/A. Patient is PT consult only with plan to have outpatient physical therapy services in 2 weeks. Plan of Care/Treatment Plan: N/A. Patient is PT consult only with plan to have outpatient physical therapy services in 2 weeks. DISCHARGE RECOMMENDATIONS: May benefit from skilled physical therapy services according to orthopedic surgeon's timeline recommendations. Patient will be educated and trained on home exercise program per TKA exercise protocol in preparation for outpatient physical therapy services. TREATMENT CODE/TIME: 9716 2 x 30 minutes, 88209 x 10 minutes beginning at 9:40 AM. Thank you very much for this referral. Rika Oseguera PT, DPT, CLT [facility] [place], [place]
[2019-11-15 11:10] VITALS: BP 124/89; PULSE 78; RESP 17; TEMP 36.6; O2SAT 96
--- NOTE | 2019-11-15 11:35 | W.NUTCONSULT ---
Date of service: 11/15/19 Time of Service: 11:35 Nutritional Consult ASSESSMENT: 49 year old female here for total left knee replacement. BMI indicates class 2 obesity. Following regular meal plan with adeuqate intake. not currently considered at nutritional risk. MONITORING AND EVALUATION: will monitor weight and po intake trends and adjust meal plan as needed Time Spent in Nutritional Counseling and Treatment: 0 time spent face to face
== END 2019-11-15 11:52 | disposition home or self-care (01) | DRG 470 ==
LOC: PDS 10:46 → MS 17:07
PROVIDERS: Admitting Provider Student in an Organized Health Care Education/Training Program; PCP Nurse Practitioner Family; Visit Provider Student in an Organized Health Care Education/Training Program
PROC: 0SRD0J9 Replacement of Left Knee Joint with Synthetic Substitute, Cemented, Open Approach (ICD-10-PCS; CPT 27447; principal; 2019-11-14 12:15)
DX: M17.12 Unilateral primary osteoarthritis, left knee (principal); M25.562 Pain in left knee; Z96.652 Presence of left artificial knee joint; G89.18 Other acute postprocedural pain; K21.9 Gastro-esophageal reflux disease without esophagitis; J45.909 Unspecified asthma, uncomplicated; F17.210 Nicotine dependence, cigarettes, uncomplicated; F32.9 Major depressive disorder, single episode, unspecified; G47.33 Obstructive sleep apnea (adult) (pediatric)
CPT/HCPCS: 27447; 76942; 97162; 97530; NC; J0690; J1100; J1885; J2250; J2405

== ENCOUNTER 2019-12-03 08:58 | Outpatient (CLI) | payer MEDICARE, MEDICAID, SELFPAY ==
--- NOTE | 2019-12-03 09:03 | DI.RAD_ITS ---
EXAM: XR KNEE LT 1V INDICATION: 1ST POST OP. COMPARISON: XR STANDING ALIGNMENT from 11/08/2019 TECHNIQUE: 2D digital imaging was performed. FINDINGS: A total knee prosthesis is seen. No abnormal bony lucencies are seen.
--- NOTE | 2019-12-03 09:06 | DI.RAD_ITS ---
EXAM: XR STANDING ALIGNMENT INDICATION: 1ST POST OP. COMPARISON: XR STANDING ALIGNMENT from 11/08/2019 TECHNIQUE: 2D digital imaging was performed. FINDINGS: There are bilateral total knee prostheses. The hip joint spaces are well maintained. There is a slig ht leg length discrepancy at the level of the femoral heads with the right femoral head projecting 6 millimeters superior to the left. The ankle joint spaces are well maintained. IMPRESSION: Mild leg length discrepancy. Bilateral total knee prostheses.
== END 2019-12-03 09:18 ==
PROVIDERS: PCP Nurse Practitioner Family; Referring Provider Nurse Practitioner Family; Visit Provider Student in an Organized Health Care Education/Training Program
DX: Z96.653 Presence of artificial knee joint, bilateral (principal); M21.70 Unequal limb length (acquired), unspecified site; Z47.1 Aftercare following joint replacement surgery
CPT/HCPCS: 73560; 77073

== ENCOUNTER 2019-12-12 15:44 | Observation (INO) | payer MEDICARE, MEDICAID, SELFPAY ==
[2019-12-12 15:49] VITALS: BP 132/97; PULSE 75; RESP 18; TEMP 36.8; O2SAT 96
--- NOTE | 2019-12-12 16:08 | ED.GENADUL_ITS ---
Discharge Plan Discharge Details Chief Complaint: Orthopedic Admit Date/Time: 12/12/19 17:13 Admit Provider: Junior Brunson Attending Provider: Junior Brunson Primary Care Provider: Lucy Courtney ED Provider: Julius Puga Medical Decision Making 49-year-old with a past medical history which includes a recent left TKR presents with severe left knee pain associated with knee flexion. Ms. cano reports an audible/subjective popping sensation with subsequent severe pain. On arrival and has minimal discomfort when not flexing or extending her knee. Postoperative site with a well-healed incision minimal appropriate erythema, generalized swelling and focal tenderness along her medial knee. Normal peripheral neurovascular exam. X-ray nondiagnostic with no evidence of hardware disruption. Evaluated in ED by her orthopedic physician, Dr. Brunson. Admitted to orthopedics for observation. Medical Records Medical records reviewed: Yes I reviewed the patient's medical records. Imaging Data Radiologic Study: Attestation: I personally reviewed and interpreted this imaging study as follows: Imaging: X-Ray (Left knee) My impression: No acute bony injury or hardware disruption. Interpreted independently and contemporaneously by myself. Radiologist's impression: Same HPI 49-year-old woman with a past medical history witching includes anxiety, asthma, chronic recurrent headaches, chronic low back pain, tobacco use, and who is also s/p a recent left TKR. Presents here for evaluation of acute worsening left knee pain. She describes flexing her leg earlier with an audible/subjective popping sensation and having immediate severe pain in the proximal and medial aspect of her left hip. She was able to walk/bear weight with limited range with associated severe pain and subjective knee instability. She denies any loss of motion/loss of sensation distally. She has since taken OTC analgesia with mild improvement of symptoms and reports moderate discomfort while at rest. General Date/Time Provider Initiated Documentation: 12/12/19 16:04 . Related Data Home Medications Medication Instructions Recorded Confirmed topiramate 100 mg PO BID 06/18/16 12/12/19 Atrovent HFA 1 puff INHALATION Q8H PRN 12/05/16 12/12/19 albuterol sulfate [Proventil HFA] 2 puff INHALATION PRN PRN 02/15/17 12/12/19 Narcan 4 mg NS PRN #2 spray 09/27/17 12/12/19 cetirizine [Zyrtec] 10 mg PO DAILY tab-cap 01/31/18 12/12/19 meclizine 12.5 mg PO DAILY 01/31/18 12/12/19 ondansetron HCl [Zofran] 4 mg PO PRN 01/31/18 12/12/19 omeprazole 40 mg PO BID #60 tab-cap 03/31/18 12/12/19 clonazepam 1 mg PO BID PRN 11/29/18 12/12/19 gabapentin 300 mg PO TID 11/29/18 12/12/19 prochlorperazine maleate 5 - 10 mg PO Q8H PRN PRN #30 tab 06/11/19 12/12/19 [Compazine] benzonatate [Tessalon Perles] 100 mg PO TID PRN #14 cap 10/30/19 12/12/19 acetaminophen 1,000 mg PO Q8H PRN #90 tab 11/15/19 12/12/19 aspirin 81 mg PO BID #60 tab 11/15/19 12/12/19 ibuprofen 800 mg PO Q8H PRN #90 tab 11/15/19 12/12/19 venlafaxine 225 mg PO DAILY 11/15/19 12/12/19 diazepam 5 mg tablet 5 mg PO TID PRN #15 tab 11/16/19 12/12/19 promethazine 25 mg tablet 25 mg PO Q6H PRN #8 tab 11/23/19 12/12/19 hydromorphone 4 mg tablet 4 mg PO Q4H PRN #30 tab MDD 24mg 12/07/19 12/12/19 Previous Rx's Medication Instructions Recorded Narcan 4 mg NS PRN #2 spray 09/27/17 omeprazole 40 mg PO BID #60 tab-cap 03/31/18 prochlorperazine maleate 5 - 10 mg PO Q8H PRN PRN #30 tab 06/11/19 [Compazine] benzonatate [Tessalon Perles] 100 mg PO TID PRN #14 cap 10/30/19 acetaminophen 1,000 mg PO Q8H PRN #90 tab 11/15/19 aspirin 81 mg PO BID #60 tab 11/15/19 ibuprofen 800 mg PO Q8H PRN #90 tab 11/15/19 diazepam 5 mg tablet 5 mg PO TID PRN #15 tab 11/16/19 promethazine 25 mg tablet 25 mg PO Q6H PRN #8 tab 11/23/19 hydromorphone 4 mg tablet 4 mg PO Q4H PRN #30 tab MDD 24mg 12/07/19 Allergies Allergy/AdvReac Type Severity Reaction Status Date / Time adhesive Allergy Intermediate gets red Verified 12/12/19 15:59 and welts up codeine Allergy Intermediate Itching Unverified 12/12/19 15:59 oxycodone HCl [From Percocet] Allergy Intermediate Anaphylaxsi Unverified 12/12/19 15:59 s morphine Allergy Itching Verified 12/12/19 15:59 General Stated Complaint: Orthopedic CRISTI: 3 Review of Systems All systems reviewed & are unremarkable except as noted in HPI and below PFSH Medical History Anxiety treated Asthma Chronic headache (Acute) Chronic low back pain (Acute) Chronic pain Cigarette smoker Depression Family history of colon cancer GERD (gastroesophageal reflux disease) Hyperthyroidism Intertrigo Left lateral epicondylitis (Inactive) s/p debridement 11/30/18 Lumbar degenerative disc disease (Acute) Migraine Obese Obstructive sleep apnea No CPAP at this time Postmenopausal bleeding resolved PTSD (post-traumatic stress disorder) Syncope Tear of medial meniscus of left knee (Resolved) Aspiration: 04/09/2019; 02/05/19 Depo-Medrol injection: 04/09/2019; 02/05/19 Tendinitis of both rotator cuffs (Inactive 06/30/18) Thyroid nodule TIA (transient ischemic attack) (Inactive) 06/15 Vertigo Surgical History Colonoscopy - MAC (02/14/18) EGD - MAC (02/14/18) History of total left knee replacement (TKR) (Acute 11/14/19) Dr. Brunson Replacement of total knee joint R Rotator Cuff Repair 2x on R, 1 x on L, pt report 2 on the left side S/P left knee arthroscopy (Inactive) partial medial menisectomy and trochlear chondroplasty DOS: 05/17/19 Aspiration/Injection: 06/15/19 Status post left rotator cuff repair (Inactive) DOS: 11/30/2018 Dr. Brunson corticosteroid injection: 02/21/19 Family History Father Rheumatoid arthritis Brother Rheumatoid arthritis Social History Smoking/Tobacco Use Status: Current every day Tobacco Type: cigarettes Tobacco: How many years used: 25 Alcohol Intake: current Alcohol Intake frequency: holidays/special occasions only Alcohol type: wine Drug use: Occasionally Substance use type: marijuana Details: marijuana Current gender identity: female Do you feel safe at home: Yes Do you feel safe in your relationship?: Yes Additional Social history: no relationship, thats done Exam Narrative Exam Narrative: Nursing note and vital signs have been reviewed and noted. GENERAL: alert, active, no acute distress, well -hydrated, well-nourished HEENT: atraumatic/normocephalic, PERRLA, EOMI, conjunctiva clear, external ears/canals normal, nasal mucosa normal NECK: supple, full range of motion CARDIOVASCULAR: nl pulses, no edema PULMONARY: nl effort, no audible wheezing or stridor ABDOMEN: non-distended EXTREMITY: normal muscle tone, left knee with well-healed midline incision, mild generalized erythema and swelling. Significant tenderness on the proximal medial aspect of the knee. Exam limited by pain. Normal peripheral neurovascular exam. NUERO: normal mentation, moving all extremities, normal stance and gait, PSYCH: alert and oriented SKIN: no new rashes or lesions Course Vital Signs Vital signs: Vital Signs Temperature 98.2 F 12/12/19 15:49 Pulse 75 12/12/19 15:49 Respiratory Rate 18 12/12/19 15:49 Blood Pressure 132/97 H 12/12/19 15:49 Pulse Oximetry 96 12/12/19 15:49 Temperature 98.2 F 12/12/19 15:49 Temperature Source Temporal Artery Scan 12/12/19 15:49 Pulse 75 12/12/19 15:49 Respiratory Rate 18 12/12/19 15:49 Respiratory Effort Non-Labored 12/12/19 15:58 Blood Pressure 132/97 H 12/12/19 15:49 Blood Pressure Position Supine 12/12/19 15:49 Pulse Oximetry 96 12/12/19 15:49 Oxygen Delivery Method Room Air 12/12/19 15:49 Oxygen Flow Rate 0 12/12/19 15:49 Pain Level 6 12/12/19 16:00
--- NOTE | 2019-12-12 16:16 | DI.RAD_ITS ---
EXAM: XR KNEE LT 3V AP,LAT,CYNDI INDICATION: s/p TKR w new pain after audible pop; r/o fx or hardware abnormality COMPARISON: XR KNEE LT 1V from 12/03/2019 TECHNIQUE: 2D digital imaging was performed. FINDINGS: No fracture or other bony lucency is seen. A joint effusion is visible. There is a total knee prost hesis which appears unchanged IMPRESSION: Joint effusion. No evidence of fracture.
--- NOTE | 2019-12-12 17:09 | DI.VRAD_ITS ---
Addendum created by Fariba Ferris MD on 12/12/2019 5:10:03 PM EST The second line of the impression should say: Moderate joint effusion. Consider fluid sampling if clinically relevant. Initial report created on 12/12/2019 5:08:54 PM EST PROCEDURE INFORMATION: Exam: XR Left Knee Exam date and time: 12/12/2019 4:27 PM Age: 49 years old Clinical indication: Other: Left knee pain after standing up, heard 'pop', tkr 1 month ago; Prior surgery; Surgery date: <1 month TECHNIQUE: Imaging protocol: XR Left knee. Views: 3 views. COMPARISON: CR XR KNEE LT 1V 12/03/2019 9:03 AM FINDINGS: Bones/joints: Left knee replacement. Intact hardware. No loosening. Moderate joint effusion. No acute fracture or dislocation. Soft tissues: Normal. IMPRESSION: Left knee replacement. Intact hardware. No loosening. Moderate joint effusion. The No fracture or dislocation. Dictated and Authenticated by: Fariba Ferris MD. Ordering:GAYATRI Madrid MD
--- NOTE | 2019-12-12 17:15 | W.ORTHOCONSU ---
Date of service: 12/12/19 Time of Service: 17:15 History of Present Illness History of Present Illness Chief Complaint: Left knee pain Narrative: Dinesh is a 49-year-old who is approximate 3 weeks status post left knee replacement. She has been doing well and making good progress. She reports that prior today she has been ambulating without a cane or assistive device. She has had pain in the evening time but has mostly been doing well. She is been able to manage the stairs in a reciprocal fashion. However, this morning, she was trying to rise from the toilet she felt something pop. She describes a spot present in the posterior medial aspect of the right knee. Since that time, she has had significant mouth pain. However, when I questioned her today she reports that this pain is actually more anterior medial rather than posterior medial. However, she does have some worsening posterior knee pain. She is found that is been too difficult to weight-bear and therefore has been unable to weight-bear and had difficulties in managing to get out to the car. She has recently had a bad migraine with some nausea but this has resolved. She denies any fevers or chills. She denies any redness or warmth to the knee. She is had no drainage from the wound. She feels like the swelling continues to improve. She describes his pain is quite sharp, 10 out of 10, and has had difficulty controlling it with her 4 mg of Dilaudid. Consults Consult date: 12/12/19 Requesting physician: Julius Puga Consult Reason Left knee pain Assessment and Plan Assessment and plan (1) Pain in knee region after total knee replacement: Status: Acute Assessment and plan: Dinesh is a 49-year-old who is status post left knee replacement. While she has had some pain, appropriate for her pain history and profile, today was much different. She felt a pop and try to get up from the toilet and since then has had difficulty with ambulation. If I axially load the leg she does have pain. Her x-rays are negative. However, is very possible that she tore some scar tissue or some of the stitch around the medial retinaculum says she has pain around the patella. However, I sense no gross defect and no gross instability. However, she is having difficulty with mobilization. Therefore, I will admit her for observation tonight to work on her pain and also work with physical therapy. She may require a knee immobilizer for a brief period of time until her pain subsides. Expect that in the next day or so things will improve significantly. I feel this would be a small setback. She has no fevers and chills. She has no signs of infection. I am hopeful that she will be able return home tomorrow after modifying her pain regimen and working with physical therapy. Qualifiers: Encounter type: initial encounter Qualified Code(s): T84.84XA - Pain due to internal orthopedic prosthetic devices, implants and grafts, initial encounter; Z96.659 - Presence of unspecified artificial knee joint Review of Systems All systems reviewed & are unremarkable except as noted in HPI and below PFSH Medical History Anxiety treated Asthma Chronic headache (Acute) Chronic low back pain (Acute) Chronic pain Cigarette smoker Depression Family history of colon cancer GERD (gastroesophageal reflux disease) Hyperthyroidism Intertrigo Left lateral epicondylitis (Inactive) s/p debridement 11/30/18 Lumbar degenerative disc disease (Acute) Migraine Obese Obstructive sleep apnea No CPAP at this time Postmenopausal bleeding resolved PTSD (post-traumatic stress disorder) Syncope Tear of medial meniscus of left knee (Resolved) Aspiration: 04/09/2019; 02/05/19 Depo-Medrol injection: 04/09/2019; 02/05/19 Tendinitis of both rotator cuffs (Inactive 06/30/18) Thyroid nodule TIA (transient ischemic attack) (Inactive) 06/15 Vertigo Surgical History Colonoscopy - MAC (02/14/18) EGD - MAC (02/14/18) History of total left knee replacement (TKR) (Acute 11/14/19) Dr. Brunson Replacement of total knee joint R Rotator Cuff Repair 2x on R, 1 x on L, pt report 2 on the left side S/P left knee arthroscopy (Inactive) partial medial menisectomy and trochlear chondroplasty DOS: 05/17/19 Aspiration/Injection: 06/15/19 Status post left rotator cuff repair (Inactive) DOS: 11/30/2018 Dr. Brunson corticosteroid injection: 02/21/19 Family History Father Rheumatoid arthritis Brother Rheumatoid arthritis Social History Smoking/Tobacco Use Status: Current every day Tobacco Type: cigarettes Tobacco: How many years used: 25 Alcohol Intake: current Alcohol Intake frequency: holidays/special occasions only Alcohol type: wine Drug use: Occasionally Substance use type: marijuana Details: marijuana Current gender identity: female Do you feel safe at home: Yes Do you feel safe in your relationship?: Yes Additional Social history: no relationship, thats done Exam Const General: cooperative, healthy appearing, comfortable and no acute distress Nutritional Appearance: overweight Orientation: alert, awake and oriented x3 Extrem Other: Evaluation of the left knee shows a well-healed midline incision. There may be some mild bogginess and swelling to the knee but no gross, large effusion. No erythema. No warmth. Gentle passive range of motion actually does not cause much pain within the arc she allows me, approximately 15 to 80 degrees. She is very resistant to any active range of motion. She is unable to demonstrate a straight leg raise due to pain. On palpation of the knee, she does have most of her pain along the distal, medial femur and around the patella both medially and laterally. She does not allow me to do any patellar mobilization. She really is not participating with any attempted evaluation of the quadriceps. However, she does tense the leg up when she does I feel no defect in the quadriceps tendon or in the medial retinacular repair. She does have pain along this area though. She has pain in the posterior knee as well and there may be a small effusion palpable. She is some pain over the hamstring tendons posterior medially. The knee is stable to varus and valgus stress with no gross instability. Passively, I am able to show about 5 degrees extension. Attempted deep flexion is not tolerated. No pain with hip range of motion. Results Last Vital Signs Temp 36.8 C 12/12/19 15:49 Pulse 75 12/12/19 15:49 Resp 18 12/12/19 15:49 BP 132/97 H 12/12/19 15:49 Pulse Ox 96 12/12/19 15:49 Imaging Imaging Studies: X-ray of the left knee shows a well-placed total knee arthroplasty. I see no signs of fracture. The patella is in appropriate positioning not suggestive of any tendon rupture. No errant cement.
[2019-12-12] MEDS: Ketorolac 30 MG/ML VIAL IM (17:28)
[2019-12-12 17:45] VITALS: BP 160/85; PULSE 71; RESP 18; TEMP 36.4; O2SAT 100
[2019-12-12] MEDS: HYDROmorphone 4 MG TAB PO (19:06)
[2019-12-12] MEDS: Gabapentin 300 MG CAP PO (21:21)
[2019-12-12] MEDS: Aspirin E.C. 81 MG TABEC PO (21:21)
[2019-12-12] MEDS: Omeprazole 20 MG CAPCR 40 MG PO (21:21)
[2019-12-12] MEDS: Ondansetron 4 MG TAB PO (21:21)
[2019-12-12 21:29] VITALS: BP 134/83; PULSE 64; RESP 16; TEMP 36.7; O2SAT 99
[2019-12-12] MEDS: Promethazine 25 MG TAB PO (22:34)
[2019-12-12 23:07] VITALS: BP 115/80; PULSE 75; RESP 16; TEMP 36.4; O2SAT 99
[2019-12-13] MEDS: HYDROmorphone 4 MG TAB PO ×4 (01:09→14:22)
[2019-12-13] MEDS: diazePAM 5 MG TAB PO ×2 (03:11→12:06)
[2019-12-13 03:36] VITALS: BP 128/80; PULSE 70; RESP 18; TEMP 35.9; O2SAT 94
[2019-12-13] MEDS: Omeprazole 20 MG CAPCR 40 MG PO (07:55)
[2019-12-13] MEDS: Meclizine 12.5 MG TAB PO (07:55)
[2019-12-13] MEDS: Gabapentin 300 MG CAP PO ×2 (07:55→14:22)
[2019-12-13] MEDS: Ibuprofen 800 MG TAB PO ×2 (07:55→14:22)
[2019-12-13] MEDS: Aspirin E.C. 81 MG TABEC PO (07:55)
[2019-12-13] MEDS: Cetirizine 10 MG TAB PO (07:55)
[2019-12-13 07:58] VITALS: BP 126/85; PULSE 82; RESP 18; TEMP 36.7; O2SAT 99
[2019-12-13] MEDS: Ondansetron 4 MG TAB PO (10:28)
--- NOTE | 2019-12-13 10:47 | PDOC.CMIN ---
- If Service Date Differs Date of service: 12/13/19 Time of Service: 10:47 Care Management Initial Assess REASON FOR HOSPITALIZATION:: Post-operative pain PAST MEDICAL HISTORY/PAST SURGICAL HISTORY:: Medical History: Anxiety. Asthma. Chronic headache (Acute). Chronic low back pain (Acute). Chronic pain. Cigarette smoker. Depression. Family history of colon cancer. GERD (gastroesophageal reflux disease). Hyperthyroidism. Intertrigo. Left lateral epicondylitis (Inactive). s/p debridement 11/30/18. Lumbar degenerative disc disease (Acute). Migraine. Obese. Obstructive sleep apnea. No CPAP at this time. Postmenopausal bleeding. resolved. PTSD (post-traumatic stress disorder). Syncope. Tear of medial meniscus of left knee (Resolved). Aspiration: 04/09/2019; 02/05/19. Depo-Medrol injection: 04/09/2019; 02/05/19. Tendinitis of both rotator cuffs (Inactive 06/30/18). Thyroid nodule. TIA (transient ischemic attack) (Inactive). 06/15. Vertigo. Surgical History: Colonoscopy - MAC (02/14/18). EGD - MAC (02/14/18). History of total left knee replacement (TKR) (Acute 11/14/19). Dr. Brunson. Replacement of total knee joint. R. Rotator Cuff Repair. 2x on R, 1 x on L, pt report 2 on the left side. S/P left knee arthroscopy (Inactive). partial medial menisectomy and trochlear chondroplasty. DOS: 05/17/19. Aspiration/Injection: 06/15/19. Status post left rotator cuff repair (Inactive). DOS: 11/30/2018. Dr. Brunson. corticosteroid injection: 02/21/19 PREVIOUS FUNCTIONAL STATUS/SOCIAL/FAMILY SUPPORTS:: Dinesh lives in a mobile home in [facility] with her son Alexandr. She also has a daughter who lives in the area. Dinesh is not currently employed as she is disabled. She recently had knee surgey and is using a cane and a walker to assist with ambulation. She does not receive any community services and is independent with all care and activities. CURRENT FUNCTIONAL STATUS:: Dinesh was sitting up in bed visiting with her son when CM came to see her. She was agreeable to conversing with CM but guarded in her responses. She stated she expected to be discharged later in the day.She received a brace for her knee and stated that it helped with the discomfort. ADVANCE DIRECTIVES:: none on file Has patient been provided with information about the portal?: Yes Did the patient sign up for the portal?: No CODE STATUS:: Full Code INSURANCE COVERAGE / FINANCIAL ISSUES:: Medicare. Medicaid CURRENT HOME/COMMUNITY SERVICES/EQUIPMENT:: uses a cane and a walker PRIMARY CARE PHYSICIAN:: Lucy Courtney POTENTIAL DISCHARGE NEEDS:: follow up with surgeon PATIENT/FAMILY EDUCATION NEEDS:: Discharge plan, limitations, follow up plan, Ask Me Three. ANTICIPATED BARRIERS TO DISCHARGE:: none TRANSPORTATION:: via private vehicle with family PLAN:: Dinesh will be discharged home with no new services. She will follow up with her surgeon and discharge plan of care and transport via private vehicle with her son.
--- NOTE | 2019-12-13 11:15 | PT.INIE ---
Date of service: 12/13/19 Time of Service: 09:26 PT Notes Visit Reasons: ACUTE POST-OPERATIVE PAIN Physical Therapy Inpatient Initial Evaluation Date: 12/13/2019 Referring Doctor: Junior Brunson MD PT Orders: PT CONSULT: Worsening pain after TKA, consider knee immobilizer for ambulation. Precautions: Fall. Standard. WBAT on left LE. Patient Profile/Admitting Diagnosis: Patient is a 49-year-old female with primary unilateral osteoarthritis of left knee and is status post left total knee arthroplasty on 11/14/[address] Brunson. PMHX: Medical History Anxiety treated Asthma Chronic headache (Acute) Chronic low back pain (Acute) Chronic pain Cigarette smoker Depression Family history of colon cancer GERD (gastroesophageal reflux disease) Hyperthyroidism Intertrigo Left lateral epicondylitis (Inactive) s/p debridement 11/30/18 Lumbar degenerative disc disease (Acute) Migraine Obese Obstructive sleep apnea No CPAP at this time Postmenopausal bleeding resolved PTSD (post-traumatic stress disorder) Syncope Tear of medial meniscus of left knee (Resolved) Aspiration: 04/09/2019; 02/05/19 Depo-Medrol injection: 04/09/2019; 02/05/19 Tendinitis of both rotator cuffs (Inactive 06/30/18) Thyroid nodule TIA (transient ischemic attack) (Inactive) Vertigo Surgical History Colonoscopy - MAC (02/14/18) EGD - MAC (02/14/18) Replacement of total knee joint R Rotator Cuff Repair 2x on R, 1 x on L, pt report 2 on the left side S/P left knee arthroscopy (Inactive) partial medial menisectomy and trochlear chondroplasty DOS: 05/17/19 Aspiration/Injection: 06/15/19 Status post left rotator cuff repair (Inactive) DOS: 11/30/2018 Dr. Brunson corticosteroid injection: 02/21/19 Social History/Home Situation: Patient lives with significant other in a 1 floor house with 4 steps to enter and rails on both sides. She states that she is on disability. She did say that she worked as a nighttime security assistant at [employer] and is hoping to come back again in February 2020. She is independent with all aspects of ADLs without an assistive ambulatory device. She loves hunting. She is hoping that she can do ice fishing as early as November 28, 2019. Equipment Owned/DME: Front wheeled walker, bilateral axillary crutches, SPC Subjective: Patient reports pain in back and in the front of her knee at rest and with movement. She feels confident that the immoblizer will help her significantly with gait activity. She plans to continue with OP PT services with [facility]. She denies any nausea, lightheadedness, nor dizziness at time of evaluation. Objective: General Observation: Cryocuff on left knee. SERGIO wraps on left LE. TEDS on right leg. Mental Status: Alert and oriented x4 Pain: 7/10 on left knee with movement and weight bearing. ROM: Right Upper Extremity: Shoulder Flexion WFL. Shoulder abduction WFL. Elbow flexion WFL. Wrist flexion WFL. Opening and closing of hand WFL. Left Upper Extremity: Shoulder Flexion WFL. Shoulder abduction WFL. Elbow flexion WFL. Wrist flexion WFL. Opening and closing of hand WFL. Right Lower Extremity: Hip flexion WFL. Hip abduction WFL. Knee flexion WFL. Ankle dorsiflexion WFL. Ankle plantarflexion WFL. Left Lower Extremity: Hip flexion WFL. Hip abduction WFL. Knee flexion -10 degrees to 85 degrees limited significantly by pain. Knee extension -5 degrees. Ankle dorsiflexion WFL. Ankle plantarflexion WFL. Strength: Right Upper Extremity: Shoulder flexors 5/5. Shoulder abductors 5/5. Elbow flexors 5/5. Elbow extensors 5/5. [facility] Work[employer] strong. Left Upper Extremity: Shoulder flexors 5/5. Shoulder abductors 5/5. Elbow flexors 5/5. Elbow extensors 5/5. [facility] [employer] [facility] [employer] Worker strong. Right Lower Extremity: Hip flexors 5/5. Hip abductors 5/5. Knee flexors 5/5. Knee extensors 5/5. Ankle dorsiflexors 5/5. Ankle plantarflexors 5/5. Left Lower Extremity:Hip flexors 5/5. Hip abductors 5/5. Knee flexors 3-/5. Knee extensors 3-/5. Ankle dorsiflexors 5/5. Ankle plantarflexors 5/5. Sensation: Intact as to pain and pressure on bilateral lower extremities. Bed Mobility/Transfers: Sit to stand independent Stand to sit independent Bed to chair independent Chair to bed independent Gait: Patient negotiated level surface ambulation of 80 feet with front wheeled walker and knee immobilizer on requiring only supervision from PT and minimal verbal cues for walker management and directional changes. Mild antalgic gait noted. Patient report 7/10 pain and needed to rest in standing. Pain is located in the back of the knee and in the rudy medial aspect that is aggravated by weight bearing. She did report feeling more stable and comfortable using the immobilizer. Balance: Static Sitting: Normal Dynamic Sitting: Normal Static Standing: Fair Dynamic Standing: Fair Special Tests: Mobility Limitations Standardized [employer] AM-PAC 6 clicks Basic Mobility Inpatient Short Form: Raw Score: 24 CMS Score: 0% deficit Informed Consent/Education: Patient instructed in purpose of PT consult and plan of care. Patient was educated and instructed on safe performance of supine exercises consisting of gluteal and quadrcieps setting, and heel slides. Standing level heel raises as well as partial knee bends were also done with patient. Patient was also instructed about exercise progression to be given at outpatient physical therapy. Assessment: Patient is a 49-year-old female with primary pain in R knee status post left total knee arthroplasty on 11/14/2020. Patient responded well with the use of Knee immobilizer and is agreeale to using it for all mobility tasks along with FWW once discharged to home. Patient is very motivated to return home and regain prior level of function. She has a supportive significant other and has a son whom she can ask for help if needed. Her prognosis for regaining prior level of function is good. Patient presents with clinical signs and symptoms consistent with current/admitting diagnoses that have resulted to mobility limitations, gait instability, generalized weakness, and impairment of motor control as demonstrated by the following impairment level findings: 1. Decreased strength to left knee major muscle groups 2. Impaired standing balance 3. Impaired activity tolerance 4. Limitation of joint range of motion in left knee Impairments are contributing to the following functional limitations: 1. Inability to safely ambulate without assistive device and physical assistance 2. Increase completion time for mobility ADL performance 3. Increased fall risk 4. Inability to negotiate steps alone safely Patient is assessed as a 40502 moderate complexity based on the following: History: Patient is a 49-year-old female with primary unilateral osteoarthritis of left knee and is status post left total knee arthroplasty on 11/14/2020 presenting with impairment level findings, functional limitations and past medical history as indicated above Examination: Demonstrable impairment in strength, balance, and range of motion with underlying impairments and functional limitations as documented above Presentation: Evolving Decision Makin moderate complexity Goals: N/A. Patient is PT consult only with plan to cotninue with outpatient physical therapy services in 2 weeks. Plan of Care/Treatment Plan: N/A. Patient is PT consult only with plan to cotninue with outpatient physical therapy services in 2 weeks. DISCHARGE RECOMMENDATIONS: Home with continued OP services when medically cleared. TREATMENT CODE/TIME: 23506 x 29 minutes beginning at 9:426AM. Thank you very much for this referral. Rika Oseguera PT, DPT, CLT [facility] [place], [place]
[2019-12-13] MEDS: Promethazine 25 MG TAB PO (11:18)
[2019-12-13 11:30] VITALS: BP 108/69; PULSE 84; RESP 17; TEMP 36.8; O2SAT 96
--- NOTE | 2019-12-13 13:28 | DSE_ITS ---
Date of service: 12/13/19 Time of Service: 13:28 DS: Diagnosis Discharge Diagnosis (1) Pain in knee region after total knee replacement: Status: Acute Discharge Plan Disposition Patient Disposition: HOME Condition: Improving Discharge Details Chief Complaint: Orthopedic Reason For Visit: ACUTE POST-OPERATIVE PAIN Admit Date/Time: 12/12/19 17:13 Admit Provider: Junior Brunson Attending Provider: Junior Brunson Primary Care Provider: Lucy Courtney ED Provider: Julius Puga Hospital Course Hospital Course: Dinesh was admitted from the Emergency Department for acute postoperative pain after feeling a pop when getting up off of the toilet. She was treated fo rthe acute pain and woked with physical therapy. A knee immobilizer helped with her pain and she was deemed safe for discharge home. Home Meds and New Rx's Prescriptions: Continued cetirizine [Zyrtec] 10 MG tablet 10 mg PO DAILY RF: 0 ondansetron HCl [Zofran] 4 MG tablet 4 mg PO PRN RF: 0 meclizine 12.5 MG tablet 12.5 mg PO DAILY RF: 0 omeprazole 40 MG capsule,delayed release(DR/EC) 40 mg PO BID Qty: 60 RF: 3 topiramate 100 MG tablet 100 mg PO BID RF: 0 prochlorperazine maleate [Compazine] 5 mg tablet 5 - 10 mg PO Q8H PRN PRN (Reason: migraine) Qty: 30 RF: 1 venlafaxine 225 mg Tablet Extended Release 24hr 225 mg PO DAILY RF: 0 aspirin 81 mg tablet,delayed release (DR/EC) 81 mg PO BID Qty: 60 RF: 0 acetaminophen 500 mg tablet 1,000 mg PO Q8H PRN (Reason: pain) Qty: 90 RF: 3 Atrovent HFA 1 PUFF HFA aerosol inhaler 1 puff Inhalation Q8H PRNRF: 0 albuterol sulfate [Proventil HFA] 200 PUFF HFA aerosol inhaler 2 puff Inhalation PRN PRNRF: 0 Narcan 4 MG spray,non-aerosol 4 mg NS PRN Qty: 2 RF: 0 clonazepam 1 mg Tablet 1 mg PO BID PRNRF: 0 gabapentin 100 mg Capsule 300 mg PO TID RF: 0 benzonatate [Tessalon Perles] 100 mg capsule 100 mg PO TID PRN (Reason: cough) Qty: 14 RF: 0 ibuprofen 800 mg tablet 800 mg PO Q8H PRN (Reason: pain) Qty: 90 RF: 3 promethazine 25 mg tablet 25 mg PO Q6H PRN (Reason: nausea and vomiting) Qty: 8 RF: 0 hydromorphone 4 mg tablet 4 mg PO Q4H MDD 28mg PRN (Reason: pain) Qty: 35 RF: 0 diazepam 5 mg tablet 5 mg PO TID PRN (Reason: muscle spasm) Qty: 15 RF: 0 Discharge Instructions Additional Instructions: You should ambulate and mobilize with the knee immobilizer and a walker or crutches. If your pain improves, you may not use the knee immobilizer. You should continue with exercises that you can tolerate. You should continue with PT. You have been prescribed more Hydromorphone which you should take with baseline Acetaminophen and Ibuprofen. You also have Valium for muscle relaxation as well as Promethazine for nausea. You will be reevaluted in the office in 2 weeks. Referrals: Junior Burnson MD [ [facility] STAFF PHYSICIAN] - Activity:: Activity as Tolerated Equipment/Supplies:: Knee Immobilizer Diet:: As Tolerated Discharge Orders Discharge Orders: Discharge Order (Routine); Ordered 12/13/19 Ordered By: Junior Brunson DS: Summary Status at Discharge Functional status at discharge: uses cane/walker Overall status at discharge: patient is progressing back to baseline Mental Status: mental status grossly normal Speech and Movement: speech and movement normal Mood: congruent mood Affect: normal affect Exam Psych Mental Status: mental status grossly normal Speech and Movement: speech and movement normal Mood: congruent mood Affect: normal affect DS: Data Vitals/I&O Vitals and I&O: Vital Signs Temperature 36.8 C 12/13/19 11:30 Temperature Source Tympanic 12/13/19 11:30 Pulse 84 12/13/19 11:30 Pulse Rhythm Regular 12/13/19 07:58 Respiratory Rate 17 12/13/19 11:30 Respiratory Effort Non-Labored 12/13/19 07:58 Respiratory Depth Normal 12/13/19 07:58 Respiratory Pattern Normal 12/13/19 07:58 Blood Pressure 108/69 12/13/19 11:30 Blood Pressure Position Supine 12/12/19 15:49 Pulse Oximetry 96 12/13/19 11:30 Oxygen Delivery Method Room Air 12/13/19 11:30 Oxygen Flow Rate 0 12/13/19 11:30 Pain Level 5 12/13/19 11:30 Intake & Output 12/12/19 12/13/19 12/13/19 23:59 11:59 23:59 Intake Total 400 / 400 360 / 360 Output Total 300 / 300 200 / 200 Balance 100 / 100 160 / 160 Weight 108.862 kg Intake: Oral 400 / 400 360 / 360 Output: Urine 300 / 300 200 / 200 Other: Urine Color Yellow Yellow Urine Appearance Clear Clear Urine Odor Normal Normal Voiding Methods Bedside Commode Bedside Commode [facility] Medical History Anxiety treated Asthma Chronic headache (Acute) Chronic low back pain (Acute) Chronic pain Cigarette smoker Depression Family history of colon cancer GERD (gastroesophageal reflux disease) Hyperthyroidism Intertrigo Left lateral epicondylitis (Inactive) s/p debridement 11/30/18 Lumbar degenerative disc disease (Acute) Migraine Obese Obstructive sleep apnea No CPAP at this time Postmenopausal bleeding resolved PTSD (post-traumatic stress disorder) Syncope Tear of medial meniscus of left knee (Resolved) Aspiration: 04/09/2019; 02/05/19 Depo-Medrol injection: 04/09/2019; 02/05/19 Tendinitis of both rotator cuffs (Inactive 06/30/18) Thyroid nodule TIA (transient ischemic attack) (Inactive) 06/15 Vertigo Surgical History Colonoscopy - MAC (02/14/18) EGD - MAC (02/14/18) History of total left knee replacement (TKR) (Acute 11/14/19) Dr. Brunson Replacement of total knee joint R Rotator Cuff Repair 2x on R, 1 x on L, pt report 2 on the left side S/P left knee arthroscopy (Inactive) partial medial menisectomy and trochlear chondroplasty DOS: 05/17/19 Aspiration/Injection: 06/15/19 Status post left rotator cuff repair (Inactive) DOS: 11/30/2018 Dr. Brunson corticosteroid injection: 02/21/19 Family History Father Rheumatoid arthritis Brother Rheumatoid arthritis Social History Smoking/Tobacco Use Status: Current every day Tobacco Type: cigarettes Tobacco: How many years used: 25 Alcohol Intake: current Alcohol Intake frequency: holidays/special occasions only Alcohol type: wine Drug use: Occasionally Substance use type: marijuana Details: marijuana Current gender identity: female Do you feel safe at home: Yes Do you feel safe in your relationship?: Yes Additional Social history: no relationship, thats done
--- NOTE | 2019-12-13 17:16 | PDOC.CMDIS ---
- If Service Date Differs Date of service: 12/13/19 Time of Service: 17:16 LACE Index Scoring Tool - Questions: Length of Stay (in days): 1 Acuity (Admit via E.D.?): Yes E.D. Visits: 9 - Answers: Total Score: 8 Risk of Readmission: Low Risk Care Management Discharge Reason for Hospitalization: Post-operative pain Discharge Plan: Dinesh will be discharged home with no new services. She will follow up with her surgeon and discharge plan of care and transport via private vehicle with her son. Patient/Family Education Needs: Discharge plan, limitations, follow up plan, Ask Me Three.
== END 2019-12-13 14:30 | disposition home or self-care (01) ==
LOC: ER 17:30 → MS 17:41
PROVIDERS: Admitting Provider Student in an Organized Health Care Education/Training Program; Emergency Provider Emergency Medicine; PCP Nurse Practitioner Family; Visit Provider Student in an Organized Health Care Education/Training Program
DX: M25.562 Pain in left knee (principal); X50.0XXA Overexertion from strenuous movement or load, initial encounter; Z47.1 Aftercare following joint replacement surgery; Z96.652 Presence of left artificial knee joint; F17.210 Nicotine dependence, cigarettes, uncomplicated; K21.9 Gastro-esophageal reflux disease without esophagitis; G47.33 Obstructive sleep apnea (adult) (pediatric)
CPT/HCPCS: 73562; 96372; 97161; 99217; 99219; 99238; 99253; 99285; 99284; G0378; J1885; J8597; L1830

== ENCOUNTER 2019-12-24 11:23 | Outpatient (CLI) | payer MEDICARE, MEDICAID, SELFPAY ==
--- NOTE | 2019-12-24 11:44 | DI.RAD_ITS ---
EXAM: XR KNEE LT 2V AP,LAT INDICATION: s/p left TKA. COMPARISON: XR KNEE LT 3V AP,LAT,CYNDI from 12/12/2019 TECHNIQUE: 2D digital imaging was performed. FINDINGS: There has been no change in the total knee prosthesis or surrounding bone.
== END 2019-12-24 11:43 ==
PROVIDERS: PCP Nurse Practitioner Family; Referring Provider Nurse Practitioner Family; Visit Provider Student in an Organized Health Care Education/Training Program
DX: M25.562 Pain in left knee (principal); Z96.652 Presence of left artificial knee joint; T84.84XA Pain due to internal orthopedic prosthetic devices, implants and grafts, initial encounter; Z47.1 Aftercare following joint replacement surgery
CPT/HCPCS: 73560

== ENCOUNTER 2019-12-26 10:38 | Emergency (ER) | payer MEDICARE, MEDICAID, SELFPAY ==
[2019-12-26] VITALS (45 sets, daily range): BP systolic 111–147; BP diastolic 68–97; PULSE 85–106; RESP 10–25; TEMP 36.8; O2SAT 91–98
--- NOTE | 2019-12-26 10:59 | ED.GENADUL_ITS ---
Discharge Plan Disposition Patient Disposition: HOME Condition: Improving Discharge Details Chief Complaint: Chest Pain Clinical Impression: Atypical chest pain Primary Care Provider: Lucy Courtney ED Provider: Eitan Meeks Home Meds and New Rx's Prescriptions: New doxycycline hyclate 100 mg capsule 100 mg PO BID 10 Days Qty: 20 RF: 0 prednisone 20 mg tablet 40 mg PO DAILY 5 Days Qty: 10 RF: 0 Continued cetirizine [Zyrtec] 10 MG tablet 10 mg PO DAILY RF: 0 ondansetron HCl [Zofran] 4 MG tablet 4 mg PO PRN RF: 0 meclizine 12.5 MG tablet 12.5 mg PO DAILY RF: 0 omeprazole 40 MG capsule,delayed release(DR/EC) 40 mg PO BID Qty: 60 RF: 3 hydromorphone 4 mg tablet 4 mg PO Q4H MDD 24mg PRN (Reason: pain) Qty: 30 RF: 0 topiramate 100 MG tablet 100 mg PO BID RF: 0 prochlorperazine maleate [Compazine] 5 mg tablet 5 - 10 mg PO Q8H PRN PRN (Reason: migraine) Qty: 30 RF: 1 venlafaxine 225 mg Tablet Extended Release 24hr 225 mg PO DAILY RF: 0 aspirin 81 mg tablet,delayed release (DR/EC) 81 mg PO BID Qty: 60 RF: 0 acetaminophen 500 mg tablet 1,000 mg PO Q8H PRN (Reason: pain) Qty: 90 RF: 3 Atrovent HFA 1 PUFF HFA aerosol inhaler 1 puff Inhalation Q8H PRNRF: 0 albuterol sulfate [Proventil HFA] 200 PUFF HFA aerosol inhaler 2 puff Inhalation PRN PRNRF: 0 Narcan 4 MG spray,non-aerosol 4 mg NS PRN Qty: 2 RF: 0 clonazepam 1 mg Tablet 1 mg PO BID PRNRF: 0 gabapentin 100 mg Capsule 300 mg PO TID RF: 0 benzonatate [Tessalon Perles] 100 mg capsule 100 mg PO TID PRN (Reason: cough) Qty: 14 RF: 0 ibuprofen 800 mg tablet 800 mg PO Q8H PRN (Reason: pain) Qty: 90 RF: 3 promethazine 25 mg tablet 25 mg PO Q6H PRN (Reason: nausea and vomiting) Qty: 8 RF: 0 diazepam 5 mg tablet 5 mg PO TID PRN (Reason: muscle spasm) Qty: 15 RF: 0 Discharge Instructions Instructions: Chest Pain (ED) Additional Instructions: Your CAT scan did not show evidence of blood clot or pneumonia. You were observed and underwent testing for cardiac disease. Please take antibiotics and prednisone as prescribed. Continue your regular medications including inhalers if needed as well as your omeprazole. Follow-up with Daisha Courtney in clinic for recheck of not improving in 3 to 5 days time. Return to the emergency department for any acute concerns. Discharge Data Discharge Date/Time-TO BE ENTERED AT DEPARTURE: 12/26/19 16:35 Medical Decision Making 49-year-old female states she woke this morning and developed epigastric burning discomfort that she describes as chest pain associated with palpitations and shortness of breath. She states she has been unmotivated take her medications for proxy 1 week's time. She is had some decreased p.o. intake and generalized malaise. Patient arrives with a temp of 36.8, pulse 104, blood pressure 115/79, 98% sat on room air. She is tender in epigastrium on exam. Differential diagnosis is broad and includes gastritis, pancreatitis, must exclude ACS, as well as PE. Patient had IV access established, given fluid bolus, PPI, Mylanta. Labs reveal an elevated d-dimer of 2391, elevated white blood cell count of 17, hematocrit is normal at 45, platelets 315. Remainder of chemistries reveal sodium 141, potassium 3.9, chloride 104, bicarb 25, troponin negative, lipase within normal limits, magnesium slightly low at 1.7. Patient received magnesium supplementation, DuoNeb updraft with improvement. She was observed on a awake overnight monitor and repeat troponin obtained and negative. CT scan of the chest without evidence of acute abnormality. I feel she most likely has an exacerbation of GERD, primarily due to lack of adherence to her medications. She may be developing a bronchitis with mild COPD exacerbation given her underlying disease. Discussed with her treatment of such as well as the importance of adhering to her prescribed medications. She is stable and improving, work-up is otherwise unrevealing. She is stable to discharge home at this time. ECG Data Attestation: I personally reviewed and interpreted this ECG (s) as follows: Prior ECG tracings: available for review Interpretation: Sinus tachycardia, the rate is 114, the QRS is narrow, there is no ST segment elevation present. Inverted T waves present in lead III, QTC 432; not changed from November 2016 comparison HPI General Mode of arrival: ambulatory . Date/Time Provider Initiated Documentation: 12/26/19 10:40 . Limitations to Documentation: no limitations . Information obtained by: patient . History of Present Illness 49 year old F presents to the emergency department with the chief complaint of Palpitations, chest discomfort, has not taken medicines for 1 week, described as moderate, Quality is described as dull, and is localized to the chest. Patient reports no radiation. Patient started experiencing this hour(s) and it has been intermittent. No relieving factors improve symptom(s), No exacerbating factors reported . Patient notes headaches (Mild headache present, ? ms changes), loss of appetite, malaise and shortness of breath; denies cough, fever/chills and nausea/vomiting. Patient did receive the following treatments prior to arrival, none Related Data Home Medications Medication Instructions Recorded Confirmed topiramate 100 mg PO BID 06/18/16 12/26/19 Atrovent HFA 1 puff INHALATION Q8H PRN 12/05/16 12/26/19 albuterol sulfate [Proventil HFA] 2 puff INHALATION PRN PRN 02/15/17 12/26/19 Narcan 4 mg NS PRN #2 spray 09/27/17 12/26/19 cetirizine [Zyrtec] 10 mg PO DAILY tab-cap 01/31/18 12/26/19 meclizine 12.5 mg PO DAILY 01/31/18 12/26/19 ondansetron HCl [Zofran] 4 mg PO PRN 01/31/18 12/26/19 omeprazole 40 mg PO BID #60 tab-cap 03/31/18 12/26/19 clonazepam 1 mg PO BID PRN 11/29/18 12/26/19 gabapentin 300 mg PO TID 11/29/18 12/26/19 prochlorperazine maleate 5 - 10 mg PO Q8H PRN PRN #30 tab 06/11/19 12/26/19 [Compazine] benzonatate [Tessalon Perles] 100 mg PO TID PRN #14 cap 10/30/19 12/26/19 acetaminophen 1,000 mg PO Q8H PRN #90 tab 11/15/19 12/26/19 aspirin 81 mg PO BID #60 tab 11/15/19 12/26/19 venlafaxine 225 mg PO DAILY 11/15/19 12/26/19 diazepam 5 mg PO TID PRN #15 tab 12/13/19 12/26/19 ibuprofen 800 mg PO Q8H PRN #90 tab 12/13/19 12/26/19 promethazine 25 mg PO Q6H PRN #8 tab 12/13/19 12/26/19 hydromorphone 4 mg tablet 4 mg PO Q4H PRN #30 tab MDD 24mg 12/25/19 12/26/19 doxycycline hyclate 100 mg PO BID 10 Days #20 cap 12/26/19 prednisone 40 mg PO DAILY 5 Days #10 tab 12/26/19 Previous Rx's Medication Instructions Recorded Narcan 4 mg NS PRN #2 spray 09/27/17 omeprazole 40 mg PO BID #60 tab-cap 03/31/18 prochlorperazine maleate 5 - 10 mg PO Q8H PRN PRN #30 tab 06/11/19 [Compazine] benzonatate [Tessalon Perles] 100 mg PO TID PRN #14 cap 10/30/19 acetaminophen 1,000 mg PO Q8H PRN #90 tab 11/15/19 aspirin 81 mg PO BID #60 tab 11/15/19 diazepam 5 mg PO TID PRN #15 tab 12/13/19 ibuprofen 800 mg PO Q8H PRN #90 tab 12/13/19 promethazine 25 mg PO Q6H PRN #8 tab 12/13/19 hydromorphone 4 mg tablet 4 mg PO Q4H PRN #30 tab MDD 24mg 12/25/19 doxycycline hyclate 100 mg PO BID 10 Days #20 cap 12/26/19 prednisone 40 mg PO DAILY 5 Days #10 tab 12/26/19 Allergies Allergy/AdvReac Type Severity Reaction Status Date / Time adhesive Allergy Intermediate gets red Verified 12/26/19 11:09 and welts up codeine Allergy Intermediate Itching Unverified 12/26/19 11:09 oxycodone HCl [From Percocet] Allergy Intermediate Anaphylaxsi Unverified 12/26/19 11:09 s morphine Allergy Itching Verified 12/26/19 11:09 General CRISTI: 3 Review of Systems Narrative: 6 systems reviewed and otherwise are negative [facility] Medical History Anxiety treated Asthma Chronic headache (Acute) Chronic low back pain (Acute) Chronic pain Cigarette smoker Depression Family history of colon cancer GERD (gastroesophageal reflux disease) Hyperthyroidism Intertrigo Left lateral epicondylitis (Inactive) s/p debridement 11/30/18 Lumbar degenerative disc disease (Acute) Migraine Obese Obstructive sleep apnea No CPAP at this time Postmenopausal bleeding resolved PTSD (post-traumatic stress disorder) Syncope Tear of medial meniscus of left knee (Resolved) Aspiration: 04/09/2019; 02/05/19 Depo-Medrol injection: 04/09/2019; 02/05/19 Tendinitis of both rotator cuffs (Inactive 06/30/18) Thyroid nodule TIA (transient ischemic attack) (Inactive) 06/15 Vertigo Social History Smoking/Tobacco Use Status: Current every day Tobacco Type: cigarettes Tobacco: How many years used: 25 Alcohol Intake: current Alcohol Intake frequency: holidays/special occasions only Alcohol type: wine Drug use: Occasionally Substance use type: marijuana Details: marijuana Current gender identity: female Do you feel safe at home: Yes Do you feel safe in your relationship?: Yes Additional Social history: no relationship, thats done Exam Narrative Exam Narrative: GEN: awake, alert, oriented 3. Pleasant, well groomed, interactive. HEAD: Normocephalic, atraumatic ENT: Mucous membranes moist, oropharynx unremarkable, External ear exam unremarkable EYES: PERRL, EOMI NECK: Full ROM, no MAXI, no menigismus CHEST/RESP: Nontender, clear to auscultation bilateral, no wheeze/rhonchi/rales CARDIOVASCULAR: RRR, no murmur, rub nella. 2+ Rad pulse bilateral ABDOMEN: Soft, tender in the epigastrium, no mass. +Bowel sounds EXT: Full ROM, no edema, no rash Neuro: Grossly normal neurologic exam, conversant, interactive. Psych: Speech fluent, thoughts congruent, affect normal
[2019-12-26] MEDS: Normal Saline 1,000 ML 1000 ML IV (11:30)
[2019-12-26 11:35] LABS: Abs Immature Grans 0.04 k/cumm (0.0-0.09); Absolute Basophil Count 0.02 k/cumm (0.0-0.2); Absolute Lymphocyte Count 2.88 k/cumm (1.2-3.4); Absolute Monocyte Count 1.22 k/cumm (0.11-0.7); Basophils % 0.1; HGB 14.9 g/dL (12.0-15.5); Immature Grans % 0.2 %; Lymphocytes % 16.3; Mean Corp. HGB Concentration 33.1 g/dL (32.0-36.0); Mean Corpuscular Volume 87.7 fL (80-95); Mean Platelet Volume 9.8 fL (8.0-11.0); Monocytes % 6.9; Neutrophils % 76.5; Platelet Count 315 x1000/uL (130-400); RBC 5.13 m/cumm (4.00-5.20); RBC Distribution Width 14.3 % (11.7-14.6); White Blood Cell Count 17.67 k/cumm (4.4-10.8)
[2019-12-26] MEDS: Pantoprazole 40 MG VIAL IVP (11:35)
[2019-12-26] MEDS: Normal Saline Flush 10 ML SYR IVP (11:41)
[2019-12-26 11:42] LABS: Absolute Neutrophil Count 13.52 k/cumm (1.2-6.7)
[2019-12-26 11:51] LABS: ALT 21 U/L (14-59); AST 19 U/L (15-37); Albumin 3.8 g/dL (3.4-5.0); Alkaline Phosphatase 93 U/L (46-116); Anion Gap 11.1 mmol/L (3-11); BUN 13 mg/dL (7-18); Bilirubin, Total 0.8 mg/dL (0.2-1.0); CO2 25.9 mmol/L (21.0-32.0); CREATININE 0.87 mg/dL (0.55-1.02); Calcium 9.3 mg/dL (8.5-10.1); Chloride 104 mmol/L (98-107); Glucose 106 mg/dL (74-106); Potassium 3.9 mmol/L (3.5-5.1); Sodium 141 mmol/L (136-145); Total Protein 7.9 g/dL (6.4-8.2)
--- NOTE | 2019-12-26 11:55 | DI.RAD_ITS ---
EXAM: XR CHEST 2V PA LATERAL INDICATION: Epigastric pain. COMPARISON: XR CHEST 2V PA LATERAL from 10/30/2019 TECHNIQUE: 2D digital imaging was performed. FINDINGS: The lungs are not well inflated. Leads overlie the chest. The heart size is normal. The lungs are clear. No free air is seen beneath the diaphragm. There is no evidence of pneumomediastinum or pneu mothorax. IMPRESSION: Negative chest x-ray.
[2019-12-26 12:06] LABS: Lipase 316 U/L (73-393); Magnesium 1.7 mg/dL (1.8-2.4); Troponin I < 0.05 ng/Ml (<0.06)
[2019-12-26] MEDS: MAGNESIUM SULFATE 1 GM/100 ML BAG IVPB (12:31)
[2019-12-26 13:17] LABS: D-Dimer 2391 ng/mlFEU (<500)
--- NOTE | 2019-12-26 14:15 | DI.CT_ITS ---
EXAM: CT HEAD WO CLINICAL HISTORY: MENTAL STATUS CHANGES TECHNIQUE: Noncontrast COMPARISON: CT BRAIN NECK CTA from 06/09/2019 FINDINGS: No intracranial hemorrhage, mass or infarct is seen. The ventricles are normal in size. There is no e vidence of skull fracture or sinus opacification. IMPRESSION: Negative head CT.
--- NOTE | 2019-12-26 14:20 | DI.CT_ITS ---
EXAM: CT CHEST PE CTA CLINICAL HISTORY: elev ddimer, palpitaions/sob TECHNIQUE: Post IV contrast according to prior pulmonary embolism protocol. COMPARISON: CHEST FOR PULMONARY EMBOLUS from 12/05/2016 CT BRAIN NECK CTA from 06/09/2019 FINDINGS: There is no evidence of pulmonary emboli or aortic dissection. Lungs are expiratory. No infiltrate , pleural or pericardial effusion is seen. The left thyroid nodule is again seen is again noted. Vi sualized portions of the upper abdomen are unremarkable. IMPRESSION: Negative chest CT. No evidence of pulmonary emboli or other acute abnormality.
[2019-12-26] MEDS: Normal Saline - Diluent 50 ML VIAL IV (14:29)
[2019-12-26] MEDS: Omnipaque 350 MG/ML 100 ML BTL 84 ML IJ (14:30)
[2019-12-26 15:20] LABS: Troponin I < 0.05 ng/Ml (<0.06)
== END 2019-12-26 16:35 | disposition home or self-care (01) ==
PROVIDERS: Emergency Provider Emergency Medicine; PCP Nurse Practitioner Family
DX: R07.89 Other chest pain (principal); R79.89 Other specified abnormal findings of blood chemistry; Z91.14 Patient's other noncompliance with medication regimen; J44.9 Chronic obstructive pulmonary disease, unspecified; F17.210 Nicotine dependence, cigarettes, uncomplicated
CPT/HCPCS: 71275; 80053; 83690; 87449; 93005; 94640; 96361; 96365; 96375; 99285; 70450; 71046; 83735; 84484; 85025; 85379; 93010; 99284; J3475; J3490

== ENCOUNTER → 2020-01-07 14:56 | Outpatient (BNVA) | payer MEDICARE, MEDICAID, SELFPAY | PROVIDERS: PCP Nurse Practitioner Family; Referring Provider Nurse Practitioner Family; Visit Provider Student in an Organized Health Care Education/Training Program | DX: Z47.1 Aftercare following joint replacement surgery (principal); Z96.652 Presence of left artificial knee joint; M25.561 Pain in right knee; M54.9 Dorsalgia, unspecified; M25.552 Pain in left hip | CPT/HCPCS: 99213 ==

== ENCOUNTER → 2020-01-21 10:54 | Outpatient (BNVA) | payer MEDICARE, MEDICAID, SELFPAY | PROVIDERS: PCP Nurse Practitioner Family; Referring Provider Nurse Practitioner Family; Visit Provider Student in an Organized Health Care Education/Training Program | DX: T84.84XA Pain due to internal orthopedic prosthetic devices, implants and grafts, initial encounter (principal); Z96.652 Presence of left artificial knee joint ==

== ENCOUNTER → 2020-02-07 08:31 | Outpatient (BNVA) | payer MEDICARE, MEDICAID, SELFPAY | PROVIDERS: PCP Nurse Practitioner Family; Referring Provider Nurse Practitioner Family; Visit Provider Student in an Organized Health Care Education/Training Program | DX: M25.562 Pain in left knee (principal); Z47.1 Aftercare following joint replacement surgery; Z96.652 Presence of left artificial knee joint | CPT/HCPCS: 99213 ==

== ENCOUNTER 2020-03-14 19:12 | Outpatient (REF) | payer MEDICARE, MEDICAID, SELFPAY ==
[2020-03-17 09:05] LABS: COVID-19 RT-PCR Result Negative (Negative)
== END 2020-03-14 19:32 ==
LOC: NCHCN 19:12
PROVIDERS: PCP Nurse Practitioner Family; Visit Provider Physician Assistant
DX: R06.02 Shortness of breath (principal)
CPT/HCPCS: U0003

== ENCOUNTER 2020-05-10 14:57 | Emergency (ER) | payer MEDICARE, MEDICAID, SELFPAY ==
--- NOTE | 2020-05-10 15:00 | DI.RAD_ITS ---
EXAM: XR HIP LT COMPLETE AP PELVIS INDICATION: pain x 6 months. COMPARISON: No exams were available for comparison TECHNIQUE: 2D digital imaging was performed. FINDINGS: No fracture or dislocation is seen. The hip joint spaces are well maintained. The SI joints and pu bic symphysis are unremarkable. IMPRESSION: No acute abnormality. DATA REPOSITORY: RADIATION DOSE DELIVERED:
--- NOTE | 2020-05-10 15:03 | ED.GENADUL_ITS ---
Discharge Plan Disposition Patient Disposition: HOME Condition: Good Discharge Details Chief Complaint: Orthopedic Clinical Impression: Acute hip pain Primary Care Provider: Lucy Courtney ED Provider: Breann Hudson [place] Meds and New Rx's Prescriptions: Continued prednisone 5 mg tablet 5 mg PO DAILY Qty: 30 RF: 0 tizanidine 2 mg tablet 2 mg PO TID PRN (Reason: muscle spasticity) Qty: 30 RF: 0 cetirizine [Zyrtec] 10 MG tablet 10 mg PO DAILY RF: 0 ondansetron HCl [Zofran] 4 MG tablet 4 mg PO PRN RF: 0 meclizine 12.5 MG tablet 12.5 mg PO DAILY RF: 0 omeprazole 40 MG capsule,delayed release(DR/EC) 40 mg PO BID Qty: 60 RF: 3 metaxalone 400 mg tablet 800 mg PO TID PRN (Reason: muscle pain) Qty: 30 RF: 0 lidocaine 4 % adhesive patch,medicated 1 patch TP DAILY PRN (Reason: pain) Qty: 10 RF: 0 topiramate 100 MG tablet 100 mg PO BID RF: 0 prochlorperazine maleate [Compazine] 5 mg tablet 5 - 10 mg PO Q8H PRN PRN (Reason: migraine) Qty: 30 RF: 1 venlafaxine 225 mg Tablet Extended Release 24hr 225 mg PO DAILY RF: 0 aspirin 81 mg tablet,delayed release (DR/EC) 81 mg PO BID Qty: 60 RF: 0 acetaminophen 500 mg tablet 1,000 mg PO Q8H PRN (Reason: pain) Qty: 90 RF: 3 Atrovent HFA 1 PUFF HFA aerosol inhaler 1 puff Inhalation Q8H PRNRF: 0 albuterol sulfate [Proventil HFA] 200 PUFF HFA aerosol inhaler 2 puff Inhalation PRN PRNRF: 0 Narcan 4 MG spray,non-aerosol 4 mg NS PRN Qty: 2 RF: 0 clonazepam 1 mg Tablet 1 mg PO BID PRNRF: 0 gabapentin 100 mg Capsule 300 mg PO TID RF: 0 benzonatate [Tessalon Perles] 100 mg capsule 100 mg PO TID PRN (Reason: cough) Qty: 14 RF: 0 ibuprofen 800 mg tablet 800 mg PO Q8H PRN (Reason: pain) Qty: 90 RF: 3 promethazine 25 mg tablet 25 mg PO Q6H PRN (Reason: nausea and vomiting) Qty: 8 RF: 0 diazepam 5 mg tablet 5 mg PO TID PRN (Reason: muscle spasm) Qty: 15 RF: 0 Discharge Instructions Instructions: Leg Pain (ED) Additional Instructions: Your exam and history are most concerning for trochanteric bursitis of the left hip. An injection of local anesthetic and steroids were given today. Encourage gentle stretching and range of motion. Tylenol and/or ibuprofen as needed for discomfort. I would like for you to follow-up with orthopedics, please call Tuesday to schedule follow-up appointment in the next few weeks. Monitor area for signs of infection. If you develop redness, warmth, drainage, increased pain, fever/chills or other new/worsening symptom please seek care urgently once again. Good job with cutting back on smoking! Please continue to try with weight loss as well as this may be contributing to some of your joint discomfort. Referrals: Lucy Courtney [Primary Care Provider] - Discharge Data Discharge Date/Time-TO BE ENTERED AT DEPARTURE: 05/10/20 17:14 Medical Decision Making Patient is a 49-year-old female presenting today with chief complaint of 6 months of left hip pain. She reports that this began insidiously with no known trauma. Pain is primarily along the lateral side of the hip. Believes it is in the joint. States that he has been alternating Tylenol and ibuprofen without success. Also reports that she was seen by her primary care provider and recently finished a course of oral steroids with no relief of her symptoms. She states in recent days the pain has progressed to been increasing. She denies any fevers or chills. No numbness or tingling. Has not had any previous surgeries to this. Reports that over the past 6 months she has noted catching. She reports that she is trying to lose weight but her primary concern at this time is trying to cut back on smoking. Patient reports that she contacted the doctor on-call who advised evaluation in the emergency department and x-ray. On exam, patient appears comfortable. She is moving well about the bed unassisted. Does not appear to be in any discomfort. She indicates the left lateral hip is area of maximal discomfort. Sensation is intact, 2+ distal pulses, no evidence of trauma. She is full range of motion without pain elicited. Axial loading and axial loading with rotation does not elicit pain. However, with direct pressure applied over the greater trochanter, pain is brought out. Her exam and history is most concerning for trochanteric bursitis. His pain has been going on for 6 months, will obtain x-ray. I see no evidence of infectious etiology. This is atraumatic so doubt fracture. She may have component of arthritis as well although this does not seem to be intra-articular discomfort at this time. Patient and I discussed pain management options. In particular, we discussed injection she would like to hold off on this as she is afraid of needles. Has been here for narcotics multiple times historically and I am hesitant to dose her with this once again as this could put her at greater risk and do not think this is appropriate given the chronicity of her pain. With a catching sensation, I did advise that this could be related to her labrum. Advised that she would need to discuss further with orthopedics if this persisted. She does have orthopedic physician she sees routinely and will discuss this further with them as needed. XR reviewed by radiologist: FINDINGS: Bones/joints: No fracture. No dislocation. No joint space narrowing. No degenerative change. Soft tissues: Unremarkable. IMPRESSION: No acute findings Discussed these findings with the patient. She continues to rest comfortably. She is laying on the afflicted hip with no evidence of discomfort. She and I discussed risk benefits as well as expected procedural steps of Kenalog and bupivacaine injection. After time to think about this, she would like to proceed given the length of her discomfort and severity of her pain. She states she used to receive these injections for her knees prior to replacement and responded well to these. Please see procedure note. This was preformed using standard, sterile technique. Cleansed with chlorohexidine. 40mg Kenalog and 4cc of Bupivicaine were introduced to the area of maximal discomfort over the greater trochanter. Patient tolerated this well. Patient reports great reduction in pain a few minutes after injection. We discussed expected course. Advised that she f/u with her orthopedic physician she has seen historically. She was given return precuations. We discussed OTC and home regimens to help with discomfort should her pain persist. All of her questions and concerns were addressed, sh eis in greeemnt with this plan. HPI General Mode of arrival: wheelchair . Date/Time Provider Initiated Documentation: 05/10/20 15:02 . Limitations to Documentation: no limitations . Information obtained by: patient and RN notes reviewed . History of Present Illness 49 year old F presents to the emergency department with the chief complaint of left hip pain, described as severe, with intensity rated at 8. Quality is described as stabbing, and is localized to the left and lower extremity (left hip). Patient reports no radiation. Patient started experiencing this month(s) (6) and it has been constant. Immobilization improves symptom(s), Movement worsens symptoms . Patient notes no other symptoms.. Patient did receive the following treatments prior to arrival, other (oral steroids) Related Data Home Medications Medication Instructions Recorded Confirmed topiramate 100 mg PO BID 06/18/16 02/07/20 Atrovent HFA 1 puff INHALATION Q8H PRN 12/05/16 02/07/20 albuterol sulfate [Proventil HFA] 2 puff INHALATION PRN PRN 02/15/17 02/07/20 Narcan 4 mg NS PRN #2 spray 09/27/17 02/07/20 cetirizine [Zyrtec] 10 mg PO DAILY tab-cap 01/31/18 02/07/20 meclizine 12.5 mg PO DAILY 01/31/18 02/07/20 ondansetron HCl [Zofran] 4 mg PO PRN 01/31/18 02/07/20 omeprazole 40 mg PO BID #60 tab-cap 03/31/18 02/07/20 clonazepam 1 mg PO BID PRN 11/29/18 02/07/20 gabapentin 300 mg PO TID 11/29/18 02/07/20 prochlorperazine maleate 5 - 10 mg PO Q8H PRN PRN #30 tab 06/11/19 02/07/20 [Compazine] benzonatate [Tessalon Perles] 100 mg PO TID PRN #14 cap 10/30/19 02/07/20 acetaminophen 1,000 mg PO Q8H PRN #90 tab 11/15/19 02/07/20 aspirin 81 mg PO BID #60 tab 11/15/19 02/07/20 venlafaxine 225 mg PO DAILY 11/15/19 02/07/20 diazepam 5 mg PO TID PRN #15 tab 12/13/19 02/07/20 ibuprofen 800 mg PO Q8H PRN #90 tab 12/13/19 02/07/20 promethazine 25 mg PO Q6H PRN #8 tab 12/13/19 02/07/20 prednisone 5 mg tablet 5 mg PO DAILY #30 tab 01/07/20 02/07/20 metaxalone 400 mg tablet 800 mg PO TID PRN #30 tab 01/08/20 02/07/20 lidocaine 4 % topical patch 1 patch TP DAILY PRN #10 each 02/01/20 02/07/20 tizanidine 2 mg tablet 2 mg PO TID PRN #30 tab 02/07/20 02/07/20 Previous Rx's Medication Instructions Recorded Narcan 4 mg NS PRN #2 spray 09/27/17 omeprazole 40 mg PO BID #60 tab-cap 03/31/18 prochlorperazine maleate 5 - 10 mg PO Q8H PRN PRN #30 tab 06/11/19 [Compazine] benzonatate [Tessalon Perles] 100 mg PO TID PRN #14 cap 10/30/19 acetaminophen 1,000 mg PO Q8H PRN #90 tab 11/15/19 aspirin 81 mg PO BID #60 tab 11/15/19 diazepam 5 mg PO TID PRN #15 tab 12/13/19 ibuprofen 800 mg PO Q8H PRN #90 tab 12/13/19 promethazine 25 mg PO Q6H PRN #8 tab 12/13/19 prednisone 5 mg tablet 5 mg PO DAILY #30 tab 01/07/20 metaxalone 400 mg tablet 800 mg PO TID PRN #30 tab 01/08/20 lidocaine 4 % topical patch 1 patch TP DAILY PRN #10 each 02/01/20 tizanidine 2 mg tablet 2 mg PO TID PRN #30 tab 02/07/20 Allergies Allergy/AdvReac Type Severity Reaction Status Date / Time adhesive Allergy Intermediate gets red Verified 01/21/20 11:39 and welts up codeine Allergy Intermediate Itching Unverified 01/21/20 11:39 oxycodone HCl [From Percocet] Allergy Intermediate Anaphylaxsi Unverified 01/21/20 11:39 s morphine Allergy Itching Verified 01/21/20 11:39 General CRISTI: 2 Review of Systems Constitutional Constitutional: Reports as per HPI, Denies chills, Denies fever(s), Denies headache(s) and Denies weakness ENT Ears, Nose, Mouth, and Throat: Denies headache(s) Cardiovascular Cardiovascular: Reports as per HPI Respiratory Respiratory: Reports as per HPI and Denies cough Musculoskeletal Musculoskeletal: Reports as per HPI and Denies tingling Integumentary/Breasts Skin/Breast: Reports as per HPI, Denies rash and Denies wounds Neurologic Neurologic: Reports as per HPI, Denies headache(s), Denies tingling, Denies paresthesias and Denies weakness [facility] Medical History Anxiety treated Asthma Chronic headache (Acute) Chronic low back pain (Acute) Chronic pain Cigarette smoker Depression Family history of colon cancer GERD (gastroesophageal reflux disease) Hyperthyroidism Intertrigo Left lateral epicondylitis (Inactive) s/p debridement 11/30/18 Lumbar degenerative disc disease (Acute) Migraine Obese Obstructive sleep apnea No CPAP at this time Postmenopausal bleeding resolved PTSD (post-traumatic stress disorder) Syncope Tear of medial meniscus of left knee (Resolved) Aspiration: 04/09/2019; 02/05/19 Depo-Medrol injection: 04/09/2019; 02/05/19 Tendinitis of both rotator cuffs (Inactive 06/30/18) Thyroid nodule TIA (transient ischemic attack) (Inactive) 06/15 Vertigo Surgical History Colonoscopy - MAC (02/14/18) EGD - MAC (02/14/18) History of total left knee replacement (TKR) (Acute 11/14/19) Dr. Brunson Replacement of total knee joint R Rotator Cuff Repair 2x on R, 1 x on L, pt report 2 on the left side S/P left knee arthroscopy (Inactive) partial medial menisectomy and trochlear chondroplasty DOS: 05/17/19 Aspiration/Injection: 06/15/19 Status post left rotator cuff repair (Inactive) DOS: 11/30/2018 Dr. Brunson corticosteroid injection: 02/21/19 Social History Smoking/Tobacco Use Status: Former Tobacco Use Tobacco: How many years used: 25 Alcohol Intake: current Alcohol Intake frequency: holidays/special occasions only Alcohol type: wine Drug use: Occasionally Substance use type: marijuana Details: marijuana Current gender identity: female Do you feel safe at home: Yes Do you feel safe in your relationship?: Yes Exam Const General: cooperative, healthy appearing, comfortable, no acute distress, well developed and well groomed Nutritional Appearance: well nourished and obese Orientation: alert and awake Resp Effort & Inspection: normal respiratory effort, able to speak in complete sentences and no respiratory distress Cardio Rate: regular rate Rhythm: regular rhythm Back/Spine/Pelvis Thoracic/Lumbar Spine: thoracic and lumbar spine normal to inspection Pelvis: no pain with anterior-posterior compression, no pain with lateral compression, no buttock ecchymosis, no buttock tenderness and no buttock swelling Sacroiliac joints: on the left nontender Skin General skin exam: no rashes or lesions noted Lesions: no lesions Rashes: no rashes Trauma: no lacerations or abrasions Neuro General: patient alert and patient awake Cognition: normal cognition Speech: speech normal Gait: antalgic Motor: muscle tone normal throughout Sensory Exam: no sensory deficits noted Extrem Left lower extremity: normal to inspection, full ROM, normal capillary refill, no joint enlargement, hip/thigh Details: normal to inspection, tenderness Location: of the hip Location: laterally and over the great trochanter and nor mal ROM; no swelling, no abrasions, no lacerations, no ecchymosis, no crepitus, no deformity and no unusual warmth, knee Details: normal to inspection, normal ROM and other (post TKA scar noted); no tenderness and no swelling and foot (2+ distal pulses); no edema Psych Appearance: grossly normal and well kempt Mental Status: mental status grossly normal Speech and Movement: speech and movement normal Procedures Bursa Procedures Time Out Performed: Yes Side of body: left Site of Procedure: trochanteric bursa XRAY Obtained: normal Antisepsis Used: Chlorhexidine Local Anesthetic: Bupivicaine 0.5% Amount of anesthesia used (mL): 4 Medication Injected: Triamcinolone Amount of medication used (mg): 40 Patient Tolerated Procedure: well and no complications
[2020-05-10 15:06] VITALS: BP 127/102; PULSE 108; RESP 16; TEMP 36.8; O2SAT 98
--- NOTE | 2020-05-10 16:11 | DI.VRAD_ITS ---
PROCEDURE INFORMATION: Exam: XR Left Hip with Pelvis when Performed Exam date and time: 05/10/2020 3:24 PM Age: 49 years old Clinical indication: Left hip pain x 3 months, worsening since 05/05/20 TECHNIQUE: Imaging protocol: XR Left hip with pelvis when performed. Views: 2 or 3 views. COMPARISON: CT ABDOMEN PELVIS W 05/02/2019 1:36 PM FINDINGS: Bones/joints: No fracture. No dislocation. No joint space narrowing. No degenerative change. Soft tissues: Unremarkable. IMPRESSION: No acute findings. Dictated and Authenticated by: Hong Cevallos MD. Ordering:LAURA Crain MD
== END 2020-05-10 17:14 | disposition home or self-care (01) ==
PROVIDERS: Emergency Provider Physician Assistant; PCP Nurse Practitioner Family
DX: M25.552 Pain in left hip
CPT/HCPCS: 20610; 73502

== ENCOUNTER 2020-05-20 00:22 | Outpatient (CLI) | payer MEDICARE, MEDICAID, SELFPAY ==
--- NOTE | 2020-05-20 08:30 | DI.US_ITS ---
EXAM: US THYROID CLINICAL HISTORY: THYROID NODULE,E04.1 TECHNIQUE: Ultrasound performed using standard protocol. COMPARISON: US US OR ANESTHESIA from 11/14/2019 FINDINGS: Thyroid ultrasound was performed according to the usual protocol. Right thyroid lobe measures 45 x 1 5 x 16 millimeters and left thyroid lobe measures 53 x 20 x 20 millimeters. The isthmus is about 4 m illimeters in thickness. There are a few small complex thyroid nodules. There is a dominant 29 x 19 x 19 millimeter in diamet er nodule at the lower pole of the left thyroid lobe. This contains macrocalcifications, is of mixed cystic and solid echo characteristics, and is mildly hyperechoic. Shape is wider than tall and the nodule has a poorly defined to smooth margin. No lobulation seen. IMPRESSION: Left lobe thyroid nodule, ultrasound characteristics are consistent with TR 3 status in the TI-RADS c alcification, mildly suspicious, fine needle aspiration recommended for nodule in excess 25 millimete rs in diameter. The left thyroid lobe nodule is 29 millimeters in diameter and fine needle aspiratio n is recommended. DATA REPOSITORY:
--- NOTE | 2020-05-20 09:00 | ETT_ITS ---
APPROVED REPORT Exam: Exercise Treadmill Patient Location: Out-Patient Room/Bed: Stress Nurse: Laury Varma RN BMI: 39.52 Baseline Rhythm: Sinus Rhythm Indications: Chest pain. Medical History Allergies: Narcotics Cardiac Risk Factors: FHX of CAD, Asthma Exercise History: Physically active Physical Disabilities: Hips Lung Sounds: Clear to auscultation Heart Sounds: Regular Stress Test Details Test: Exercise stress testing was performed using a Tomas protocol. Rest Stress HR Resting HR Supine: 76 bpm Max Heart Rate (APMHR): 171 bpm Resting HR Standin bpm Target HR (85% APMHR): 145 bpm Max HR Achieved: 150 bpm % of APMHR: 87 Recovery HR: 88 bpm HR response to stress: Normal HR response to stress BP Resting BP Supine: 130/66 mmHg Resting BP Standin/64 mmHg Max BP: 162/60 mmHg Recovery BP: 138/66 mmHg BP response to stress: Normal blood pressure response to stress. ECG Resting ECG: Sinus Rhythm Stress ECG: Sinus Tachycardia ST Change: No significant ST segment changes Arrhythmia: None Recovery ECG: Sinus Rhythm Recovery ST Change: No significant ST segment changes Recovery Arrhythmia: None Clinical Reason for Termination: Fatigue Stress Symptoms: General Fatigue Exercise duration: 5 min30 sec Highest Stage Reached: Stage 2: 2.5 mph at 12% grade. Exercise capacity: 7.05 METs Functional Capacity: Mildly deminished capacity Stress ECG Conclusion 1. Patient exercised for 5 minutes (7 METS). Patient no symptoms suggestive of ischemia. Exercise w as stopped due to fatigue. 2. The rate-pressure product was 22,000. 3. There was no evidence of ischemia on the ECG portion exam. 4. The Wu Score ( 5) estimates an annual cardiovascular mortality of 1% and a five year survival of 94%. Using the Wu Score there is a low probability of any angiographic coronary disease.
--- NOTE | 2020-05-20 09:05 | DI.US_ITS ---
EXAM: US ABDOMEN INDICATION: FATTY LIVER DISEASE,K76.0 COMPARISON: US US THYROID from 05/20/2020 TECHNIQUE: Ultrasound abdomen performed using standard protocol FINDINGS: Abdominal ultrasound was performed according to the usual protocol. The liver may be mildly enlarged.. No focal hepatic lesion seen. Normal echotexture noted. There is no evidence of cholelithiasis or biliary dilatation. No gallbladder wall thickening or peric holecystic fluid collection. Pancreas appears intact as visualized. Spleen is unremarkable in appearance with no focal lesion. Kidneys are normal in size and shape. No renal mass, hydronephrosis, or nephrolithiasis. There are s mall bilateral simple renal cysts, the largest on the left kidney measuring about 32 millimeters in g reatest diameter. Abdominal aorta and IVC are of normal diameter. IMPRESSION: Negative abdominal ultrasound .
--- NOTE | 2020-05-20 10:03 | DI.MAMMO_ITS ---
EXAM: MAMMO SCREENING CLINICAL HISTORY: SCREENING, Z12.39 TECHNIQUE: Mammograms were interpreted according to the usual protocol including computer analysis w [employer] CAD system, tomosynthesis and C-view imaging. COMPARISON: FINDINGS: The breasts are of moderate density with fairly symmetrical distribution of fibroglandular tissue. N o dominant mass or clumped microcalcification identified in either breast. The current examination i s compared with previous examination of January 2013 and there has been no gross interval change in jeff earance comparison with the previous study. IMPRESSION: No specific evidence of malignancy at this time. Routine screening examinations are suggested at yea rly intervals due to the family history of breast carcinoma. BI-RADS Cat 1 - Negative: Breast Density - Category B - Scattered areas of fibroglandular density
== END 2020-05-20 00:42 ==
PROVIDERS: PCP Nurse Practitioner Family; Visit Provider Nurse Practitioner Family
DX: R07.89 Other chest pain (principal); R53.83 Other fatigue; Z82.49 Family history of ischemic heart disease and other diseases of the circulatory system; Z12.31 Encounter for screening mammogram for malignant neoplasm of breast; Z80.3 Family history of malignant neoplasm of breast; E04.1 Nontoxic single thyroid nodule; E07.89 Other specified disorders of thyroid; K76.0 Fatty (change of) liver, not elsewhere classified; N28.1 Cyst of kidney, acquired
CPT/HCPCS: 77063; 77067; 93016; 93018; 76536; 76700; 93017

== ENCOUNTER → 2020-05-26 11:17 | Outpatient (BNVA) | payer MEDICARE, MEDICAID, SELFPAY | PROVIDERS: PCP Nurse Practitioner Family; Referring Provider Nurse Practitioner Family; Visit Provider Student in an Organized Health Care Education/Training Program | DX: M16.32 Unilateral osteoarthritis resulting from hip dysplasia, left hip (principal); M25.552 Pain in left hip | CPT/HCPCS: 99214 ==

== ENCOUNTER 2020-05-29 00:36 | Outpatient (CLI) | payer MEDICARE, MEDICAID, SELFPAY ==
--- NOTE | 2020-05-29 08:30 | DI.RAD_ITS ---
EXAM: RF JOINT INJECTION FLUORO GUID CLINICAL HISTORY: L HIP INJ UNDER FLUORO, LT HIP PAIN, M25.552 TECHNIQUE: 2D and realtime digital imaging was performed. CONTRAST MATERIAL: Refer to procedure report. COMPARISON: No exams were available for comparison FINDINGS: Fluoroscopy was provided for Dr. Brunson during the performance of a left hip injection. Please re umer to the procedure report for complete details. Fluoro time: 9 seconds IMPRESSION:
[2020-05-29] MEDS: methylPREDNISolone ACETATE 80 MG/ML VIAL IM (14:41)
--- NOTE | 2020-05-29 14:55 | W.PROCNOTE ---
Date of service: 05/29/20 Time of Service: 14:55 Procedure Note Date of procedure: 05/29/20 Procedure: Left Hip Injection with Fluoroscopic Guidance Surgeon/Proceduralist/Physician: Junior Brunson Procedure Diagnosis: Left Hip Impingement Procedure Indications: Dinesh has had persistent pain of the LEFT hip and groin. Noninvasive measures have been tried. To serve as both diagnostic and therapeutic, an injection under fluoroscopy was recommended. I had discussed the risks of the procedure and the patient elected to proceed. Procedure Description: Dinesh was greeted in the flouroscopy room. The correct side was identified and the consent was reviewed with the patient and signed. The patient was then placed in the supine position on the fluoroscopy table. The LEFT hip was then prepped with Chloraprep. The anterolateral injection starting point was identiifed by bony landmarks and fluoroscopy. The skin and soft tissue in the tract of the injection was anesthetized with 1% Lidocaine. A spinal needle was then inserted deep into the hip joint at the level of the lateral femoral neck under fluoroscopic guidance. A small amount of Omnipaque solution was injected to confirm intraarticular placement. Once confirmed, the hip was injected with 6cc of 0.5% Bupivicaine and 80mg of Depo-Medrol. A bandaid was placed on the injection site. The patient tolerated the procedure well and noted improvement in pre-injection pain.
[2020-05-29] MEDS: Bupivacaine 0.5% Pres-Free 10 ML VIAL 6 ML IJ (14:57)
[2020-05-29] MEDS: Omnipaque 300 MG/ML 10 ML BTL IJ (14:59)
== END 2020-05-29 00:56 ==
PROVIDERS: PCP Nurse Practitioner Family; Visit Provider Student in an Organized Health Care Education/Training Program
DX: M25.552 Pain in left hip (principal); M25.852 Other specified joint disorders, left hip; M24.852 Other specific joint derangements of left hip, not elsewhere classified
CPT/HCPCS: 20610; 77002; J1040

== ENCOUNTER 2020-06-09 15:41 | Outpatient (CLI) | payer MEDICARE, MEDICAID, SELFPAY | END 2020-06-09 16:01 | PROVIDERS: PCP Nurse Practitioner Family; Referring Provider Nurse Practitioner Family; Visit Provider Student in an Organized Health Care Education/Training Program | DX: M54.32 Sciatica, left side (principal); M79.18 Myalgia, other site | CPT/HCPCS: 99214 ==

== ENCOUNTER 2020-06-11 00:35 | Outpatient (CLI) | payer MEDICARE, MEDICAID, SELFPAY ==
--- NOTE | 2020-06-11 15:30 | DI.MRI_ITS ---
EXAM: MR LUMBAR SPINE WO CLINICAL HISTORY: acute left sciatic notch pain, radiculopathy,M54.32. TECHNIQUE: Multiplanar multisequence MRI was performed. COMPARISON: MR MRI - LUMBAR SPINE WO CONTRAST from 09/28/2016 FINDINGS: MR examination lumbosacral spine was performed according to the usual protocol. There is no significant bony signal abnormality. Incidental note is made bilateral renal cysts. The conus medullaris appears intact There is no evidence of bony central canal spinal stenosis or neural foraminal stenosis. There is a large disc herniation at the L4-5 level, this is most prominent left paracentral and narro ws the lateral recesses bilaterally. Multiple nerve roots may be impinged in the spinal canal, herni ated disc occupies least 50 percent of the cross-sectional area of the spinal canal. No other disc herniation identified in the lumbar region. IMPRESSION: Large broad-based lobulated disc herniation at L4-5, most prominent left paracentral. This is much l arger than the previously noted tiny central disc herniation seen at L4-5 on prior lumbar MRI of Viky lobo 2016. DATA REPOSITORY:
== END 2020-06-11 00:55 ==
PROVIDERS: PCP Nurse Practitioner Family; Visit Provider Student in an Organized Health Care Education/Training Program
DX: M51.17 Intervertebral disc disorders with radiculopathy, lumbosacral region
CPT/HCPCS: 99214; 72148

== ENCOUNTER 2020-07-11 04:29 | Outpatient (CLI) | payer MEDICARE, MEDICAID, SELFPAY ==
[2020-07-11 12:55] LABS: Abs Immature Grans 0.03 10^3/uL (0.0-0.06); Absolute Basophil Count 0.01 10^3/uL (0.0-0.2); Absolute Lymphocyte Count 2.85 10^3/uL (1.2-3.4); Absolute Monocyte Count 0.61 10^3/uL (0.1-0.8); Absolute Neutrophil Count 5.66 10^3/uL (1.2-6.7); Basophils % 0.1; HCT 46.3 % (36.0-46.0); Immature Grans % 0.3; Lymphocytes % 31.1; MCH 29.1 pg (27.0-33.0); MCHC 32.4 % (32.0-36.0); MCV 89.7 fL (80-95); Monocytes % 6.7; Neutrophils % 61.8; Nucleated RBC 0 %; Platelet Count 282 10^3/uL (130-400); RBC 5.16 10^6/uL (3.93-5.22); RDW 13.9 % (11.7-14.6); RDW-SD 46.2 fL; WBC 9.16 10^3/uL (4.4-10.8)
[2020-07-11 14:06] LABS: Iron 73 ug/dL (50-170); Total Iron Binding Capacity 341 ug/dL (250-450); Transferrin Sat 21 % (15-50)
[2020-07-11 14:30] LABS: Anion Gap 8.6 mmol/L (3-11); BUN 14 mg/dL (7-18); CO2 24.4 mmol/L (21.0-32.0); CREATININE 0.92 mg/dL (0.55-1.02); Calcium 9.3 mg/dL (8.5-10.1); Chloride 105 mmol/L (98-107); Glucose 127 mg/dL (74-106); Magnesium 1.9 mg/dL (1.8-2.4); Sodium 138 mmol/L (136-145); TSH (W/Ref FT4) 0.85 uIU/mL (0.36-3.74); Vitamin B12 629 pg/mL (193-986)
== END 2020-07-11 04:49 ==
PROVIDERS: PCP Nurse Practitioner Family; Visit Provider Nurse Practitioner Family
DX: R53.83 Other fatigue (principal); M25.50 Pain in unspecified joint; K30 Functional dyspepsia; R73.09 Other abnormal glucose
CPT/HCPCS: 36415; 80048; 82607; 83036; 83540; 83550; 83735; 84443; 85025

== ENCOUNTER 2020-07-19 17:07 | Emergency (ER) | payer MEDICARE, MEDICAID, SELFPAY ==
[2020-07-19 18:20] VITALS: BP 150/97; PULSE 77; RESP 18; TEMP 36.6; O2SAT 99
--- NOTE | 2020-07-19 18:25 | ED.GENADUL_ITS ---
Discharge Plan Disposition Patient Disposition: HOME Condition: Stable Discharge Details Chief Complaint: Nk/Back Pain Clinical Impression: Chronic back pain Primary Care Provider: Lucy Courtney ED Provider: Wendi Watts Home Meds and New Rx's Prescriptions: New methocarbamol 500 mg tablet 500 mg PO Q6H PRN (Reason: muscle spasm) Qty: 14 RF: 0 Continued prednisone 5 mg tablet 5 mg PO DAILY Qty: 30 RF: 0 ondansetron HCl [Zofran] 4 MG tablet 4 mg PO PRN RF: 0 omeprazole 40 MG capsule,delayed release(DR/EC) 40 mg PO BID Qty: 60 RF: 3 lidocaine 4 % adhesive patch,medicated 1 patch TP DAILY PRN (Reason: pain) Qty: 10 RF: 0 gabapentin 600 mg tablet 600 mg PO TID Qty: 90 RF: 0 topiramate 100 MG tablet 100 mg PO BID RF: 0 prochlorperazine maleate [Compazine] 5 mg tablet 5 - 10 mg PO Q8H PRN PRN (Reason: migraine) Qty: 30 RF: 1 venlafaxine 225 mg Tablet Extended Release 24hr 225 mg PO DAILY RF: 0 aspirin 81 mg tablet,delayed release (DR/EC) 81 mg PO BID Qty: 60 RF: 0 acetaminophen 500 mg tablet 1,000 mg PO Q8H PRN (Reason: pain) Qty: 90 RF: 3 Atrovent HFA 1 PUFF HFA aerosol inhaler 1 puff Inhalation Q8H PRNRF: 0 albuterol sulfate [Proventil HFA] 200 PUFF HFA aerosol inhaler 2 puff Inhalation PRN PRNRF: 0 Narcan 4 MG spray,non-aerosol 4 mg NS PRN Qty: 2 RF: 0 clonazepam 1 mg Tablet 1 mg PO BID PRNRF: 0 gabapentin 100 mg Capsule 300 mg PO TID RF: 0 benzonatate [Tessalon Perles] 100 mg capsule 100 mg PO TID PRN (Reason: cough) Qty: 14 RF: 0 ibuprofen 800 mg tablet 800 mg PO Q8H PRN (Reason: pain) Qty: 90 RF: 3 promethazine 25 mg tablet 25 mg PO Q6H PRN (Reason: nausea and vomiting) Qty: 8 RF: 0 Discharge Instructions Instructions: Chronic Back Pain (DC) Additional Instructions: Alternate tylenol and motrin as needed and directed for pain. Take the methocarbamol as needed and directed for pain. Follow-up with your primary care doctor in 1 week. Return to the emergency department with any worsening or new concerning symptoms. Discharge Data Discharge Date/Time-TO BE ENTERED AT DEPARTURE: 07/19/20 19:25 Discharge Physician: Wendi Watts Medical Decision Making 50-year-old female with a history of lumbar herniated disc and chronic back pain presents for acute on chronic back pain over the past few days. Denies new injury. No cauda equina symptoms. Vitals within normal limits. No focal deficits on exam. Neurovascular intact. Patient states she cannot take any pain medication other than Dilaudid due to adverse reactions. Review on [place] prescription monitoring system notes that patient was last given Dilaudid last month. She has tramadol at home without relief. Discussed with patient that we do not treat chronic pain in the emergency department. She was given 1 dose of Dilaudid p.o. here and given a prescription for methocarbamol for home. She is advised to follow-up with her appointment with spine next month and to call her primary care doctor this week for continued pain medication as needed. Return immediately to the emergency department if you develop any worsening or new concerning symptoms. HPI General Mode of arrival: ambulatory . Date/Time Provider Initiated Documentation: 07/19/20 17:53 . Limitations to Documentation: no limitations . Information obtained by: patient . HPI Narrative: Patient is a 50-year-old female with a history of chronic back pain and lumbar herniated disc who presents to the ED with a complaint of lower back pain over the past few weeks, getting progressively worse. Patient states she has an appointment with spine clinic at [facility] on August 07 but states her pain is becoming worse. She denies any fever, chest pain, shortness of breath, abdominal pain, urinary symptoms, leg weakness or numbness, saddle anesthesia, bowel or bladder incontinence. She has been alternating Tylenol and Motrin for pain without relief. She states she cannot take most pain medications including oxycodone, morphine or codeine due to allergic reactions. She states she has taken Dilaudid in the past for her pain with relief. Related Data Home Medications Medication Instructions Recorded Confirmed topiramate 100 mg PO BID 06/18/16 07/19/20 Atrovent HFA 1 puff INHALATION Q8H PRN 12/05/16 07/19/20 albuterol sulfate [Proventil HFA] 2 puff INHALATION PRN PRN 02/15/17 07/19/20 Narcan 4 mg NS PRN #2 spray 09/27/17 07/19/20 ondansetron HCl [Zofran] 4 mg PO PRN 01/31/18 07/19/20 omeprazole 40 mg PO BID #60 tab-cap 03/31/18 07/19/20 clonazepam 1 mg PO BID PRN 11/29/18 07/19/20 gabapentin 300 mg PO TID 11/29/18 07/19/20 prochlorperazine maleate 5 - 10 mg PO Q8H PRN PRN #30 tab 06/11/19 07/19/20 [Compazine] benzonatate [Tessalon Perles] 100 mg PO TID PRN #14 cap 10/30/19 07/19/20 acetaminophen 1,000 mg PO Q8H PRN #90 tab 11/15/19 07/19/20 aspirin 81 mg PO BID #60 tab 11/15/19 07/19/20 venlafaxine 225 mg PO DAILY 11/15/19 07/19/20 ibuprofen 800 mg PO Q8H PRN #90 tab 12/13/19 07/19/20 promethazine 25 mg PO Q6H PRN #8 tab 12/13/19 07/19/20 prednisone 5 mg tablet 5 mg PO DAILY #30 tab 01/07/20 07/19/20 lidocaine 4 % topical patch 1 patch TP DAILY PRN #10 each 02/01/20 07/19/20 gabapentin 600 mg tablet 600 mg PO TID #90 tab 06/26/20 07/19/20 methocarbamol 500 mg PO Q6H PRN #14 tab 07/19/20 Previous Rx's Medication Instructions Recorded Narcan 4 mg NS PRN #2 spray 09/27/17 omeprazole 40 mg PO BID #60 tab-cap 03/31/18 prochlorperazine maleate 5 - 10 mg PO Q8H PRN PRN #30 tab 06/11/19 [Compazine] benzonatate [Tessalon Perles] 100 mg PO TID PRN #14 cap 10/30/19 acetaminophen 1,000 mg PO Q8H PRN #90 tab 11/15/19 aspirin 81 mg PO BID #60 tab 11/15/19 ibuprofen 800 mg PO Q8H PRN #90 tab 12/13/19 promethazine 25 mg PO Q6H PRN #8 tab 12/13/19 prednisone 5 mg tablet 5 mg PO DAILY #30 tab 01/07/20 lidocaine 4 % topical patch 1 patch TP DAILY PRN #10 each 02/01/20 gabapentin 600 mg tablet 600 mg PO TID #90 tab 06/26/20 methocarbamol 500 mg PO Q6H PRN #14 tab 07/19/20 Allergies Allergy/AdvReac Type Severity Reaction Status Date / Time adhesive Allergy Intermediate gets red Verified 07/19/20 18:24 and welts up codeine Allergy Intermediate Itching Unverified 07/19/20 18:24 oxycodone HCl [From Percocet] Allergy Intermediate Anaphylaxsi Unverified 07/19/20 18:24 s morphine Allergy Itching Verified 07/19/20 18:24 cyclobenzaprine AdvReac Headache Unverified 07/19/20 18:24 [From Flexeril] General Stated Complaint: Nk/Back Pain CRISTI: 4 Review of Systems All systems reviewed & are unremarkable except as noted in HPI and below Constitutional Constitutional: Reports as per HPI, Denies chills and Denies fever(s) Eyes Eyes: Denies blurry vision ENT Ears, Nose, Mouth, and Throat: Denies dizziness, Denies sore throat and Denies throat swelling Cardiovascular Cardiovascular: Denies chest pain and Denies dyspnea Respiratory Respiratory: Denies cough and Denies dyspnea Gastrointestinal Gastrointestinal: Denies abdominal pain, Denies diarrhea and Denies vomiting Genitourinary Genitourinary: Denies hematuria and Denies dysuria Musculoskeletal Musculoskeletal: Reports back pain and Denies numbness Integumentary/Breasts Skin/Breast: Denies lesions and Denies rash Neurologic Neurologic: Denies dizziness, Denies localized weakness and Denies numbness Allergic/Immunologic Allergic/Immunologic: Denies throat swelling [facility] Medical History (Updated 07/19/20 @ 18:58 by Wendi Watts DO) Anxiety treated Asthma Chronic headache (Acute) Chronic low back pain (Acute) Chronic pain Cigarette smoker Depression Family history of colon cancer GERD (gastroesophageal reflux disease) Hyperthyroidism Intertrigo Left lateral epicondylitis (Inactive) s/p debridement 11/30/18 Lumbar degenerative disc disease (Acute) Migraine Obese Obstructive sleep apnea No CPAP at this time Postmenopausal bleeding resolved PTSD (post-traumatic stress disorder) Syncope Tear of medial meniscus of left knee (Resolved) Aspiration: 04/09/2019; 02/05/19 Depo-Medrol injection: 04/09/2019; 02/05/19 Tendinitis of both rotator cuffs (Inactive 06/30/18) Thyroid nodule TIA (transient ischemic attack) (Inactive) 06/15 Vertigo Surgical History Colonoscopy - MAC (02/14/18) EGD - MAC (02/14/18) History of total left knee replacement (TKR) (Acute 11/14/19) Dr. Brunson Replacement of total knee joint R Rotator Cuff Repair 2x on R, 1 x on L, pt report 2 on the left side S/P left knee arthroscopy (Inactive) partial medial menisectomy and trochlear chondroplasty DOS: 05/17/19 Aspiration/Injection: 06/15/19 Status post left rotator cuff repair (Inactive) DOS: 11/30/2018 Dr. Brunson corticosteroid injection: 02/21/19 Family History Father Rheumatoid arthritis Brother Rheumatoid arthritis Social History Smoking/Tobacco Use Status: Former Tobacco Use Tobacco: How many years used: 25 Alcohol Intake: current Alcohol Intake frequency: holidays/special occasions only Alcohol type: wine Drug use: Occasionally Substance use type: marijuana Details: marijuana Current gender identity: female Do you feel safe at home: Yes Do you feel safe in your relationship?: Yes Additional Social history: Exam Const General: cooperative, uncomfortable and no acute distress Orientation: alert, awake and oriented x3 HENMT Head: normal to inspection Face and sinus: normal facial exam Eyes General: appearance normal, both eyes and all related structures EOM: EOM intact bilaterally Neck Neck: normal visual inspection and No submandibular swelling Lymphatic: no lymphadenopathy noted Chest Chest: normal inspection of the chest and no tenderness Resp Effort & Inspection: normal respiratory effort and able to speak in complete sentences Auscultation: clear to auscultation bilaterally Cardio Rate: regular rate Rhythm: regular rhythm GI Inspection: normal to inspection and obesity Palpation: soft, not firm, not rigid and nontender Auscultation: normal bowel sounds Back/Spine/Pelvis Thoracic/Lumbar Spine: thoracic and lumbar spine normal to inspection, No paraspinal tenderness, No thoracic spinal tenderness and No lumbar spinal tenderness Pelvis: no pain with anterior-posterior compression Skin General skin exam: no rashes or lesions noted Neuro General: patient alert, patient awake and patient oriented x3 Cognition: normal cognition Speech: speech normal Gait: antalgic Motor: muscle tone normal throughout and strength 5/5 throughout Sensory Exam: no sensory deficits noted DTR's: Rt Patellar: 1+, Lt Patellar: 1+, Rt Ankle: 1+ and Lt Ankle: 1+ Plantar Reflexes: Equivocal: bilateral (negative babinski b/l) Extrem General: normal to inspection, full ROM, capillary refill normal, no calf tenderness bilaterally and no edema Psych Appearance: grossly normal Mental Status: mental status grossly normal Speech and Movement: speech and movement normal Affect: normal affect Course Vital Signs Vital signs: Vital Signs Temperature 97.8 F 07/19/20 18:20 Pulse 77 07/19/20 18:20 Respiratory Rate 18 07/19/20 18:20 Blood Pressure 150/97 H 07/19/20 18:20 Pulse Oximetry 99 07/19/20 18:20 Temperature 97.8 F 07/19/20 18:20 Temperature Source Oral 07/19/20 18:20 Pulse 77 07/19/20 18:20 Respiratory Rate 18 07/19/20 18:20 Blood Pressure 150/97 H 07/19/20 18:20 Pulse Oximetry 99 07/19/20 18:20 Oxygen Delivery Method Room Air 07/19/20 18:20 Oxygen Flow Rate 0 07/19/20 18:20
[2020-07-19] MEDS: HYDROmorphone 2 MG TAB PO (19:03)
[2020-07-19 19:06] VITALS: BP 130/89; PULSE 77; RESP 16; O2SAT 97
== END 2020-07-19 19:25 | disposition home or self-care (01) ==
PROVIDERS: Emergency Provider Physician Assistant; PCP Nurse Practitioner Family
DX: M54.5 Low back pain (principal); G89.29 Other chronic pain; M51.26 Other intervertebral disc displacement, lumbar region
CPT/HCPCS: 99283

== ENCOUNTER 2020-10-28 16:49 | Outpatient (REF) | payer MEDICARE, MEDICAID, SELFPAY ==
[2020-10-30 17:43] LABS: Patient Race White; SARS-CoV-2 RNA Undetected (Undetected); SARS-CoV-2 Specimen Source Nasal
== END 2020-10-28 17:09 ==
LOC: NCHCN 16:49
PROVIDERS: PCP Nurse Practitioner Family; Visit Provider Nurse Practitioner Family
DX: R05 Cough (principal)
CPT/HCPCS: U0003

== ENCOUNTER 2020-12-15 19:25 | Outpatient (REF) | payer MEDICARE, MEDICAID, SELFPAY ==
[2020-12-15 21:16] LABS: ALT 25 U/L (14-59); AST 21 U/L (15-37); Albumin 3.8 g/dL (3.4-5.0); Alkaline Phosphatase 80 U/L (46-116); Bilirubin, Direct 0.09 mg/dL (0.00-0.20); Bilirubin, Total 0.6 mg/dL (0.2-1.0); Total Protein 7.1 g/dL (6.4-8.2)
== END 2020-12-15 19:45 ==
LOC: NCHCN 19:25
PROVIDERS: PCP Nurse Practitioner Family; Visit Provider Nurse Practitioner Family
DX: R10.9 Unspecified abdominal pain (principal); R13.10 Dysphagia, unspecified; M53.80 Other specified dorsopathies, site unspecified; R73.03 Prediabetes; K76.0 Fatty (change of) liver, not elsewhere classified; R06.02 Shortness of breath; G47.33 Obstructive sleep apnea (adult) (pediatric); E04.1 Nontoxic single thyroid nodule
CPT/HCPCS: 80076

== ENCOUNTER 2020-12-22 04:47 | Outpatient (CLI) | payer MEDICARE, MEDICAID, SELFPAY ==
[2020-12-23 16:18] LABS: COVID-19 RT-PCR UVMMC Result Negative (Negative)
== END 2020-12-22 05:07 ==
PROVIDERS: PCP Nurse Practitioner Family; Visit Provider Family Medicine
DX: Z11.52 Encounter for screening for COVID-19 (principal); Z01.811 Encounter for preprocedural respiratory examination
CPT/HCPCS: U0003

== ENCOUNTER 2020-12-23 02:21 | Outpatient (CLI) | payer MEDICARE, MEDICAID, SELFPAY ==
--- NOTE | 2020-12-23 | DI.CT_ITS ---
EXAM: CT BRAIN CTA CLINICAL HISTORY: RT ICA INFUDIBULUM, I25.41. TECHNIQUE: Imaging Protocol: Axial CT angiography was performed with multi-slice acquisition and mu lti-planar and/or 3D reconstructions. CONTRAST MATERIAL: Intravenous: Omnipaque 350 Contrast volume:85 cc COMPARISON: CT CT HEAD WO from 12/26/2019 FINDINGS: Head CT: No intracranial hemorrhage, mass or infarct is seen. The ventricles are normal in size. Th ere is no significant atrophy. There are no abnormal enhancing lesions. The visualized portions of the sinuses and mastoid air cells appear clear. Internal Carotid Arteries: Petrous: Normal. Cavernous: Normal. Cerebral: Normal. Middle Cerebral Arteries: Right: No aneurysm, occlusion or significant stenosis. Left: No aneurysm, occlusion or significant stenosis. Anterior Cerebral Arteries: Right: No aneurysm, occlusion or significant stenosis. Left: No aneurysm, occlusion or significant stenosis. Posterial Cerebral Arteries: Right: No aneurysm, occlusion or significant stenosis. Left: No aneurysm, occlusion or significant stenosis. Vertebral Arteries: Right: No aneurysm, occlusion or significant stenosis. Left: No aneurysm, occlusion or significant stenosis. Basilar Artery: No aneurysm, occlusion or significant stenosis. IMPRESSION: Normal CTA examination of the [place]. No aneurysm is visible on the current exam. Normal C T of the brain. RADIATION DOSE DELIVERED: 1,662.11mGy.cm Total DLP DATA REPOSITORY: All CT scans at this facility are submitted to the National Radiology Data Registry (NRDR) Dose Index Registry (DIR) with the [employer] (ACR). RADIATION OPTIMIZATION: All CT scans at this facility use at least one of these dose optimization te chniques: automated exposure control; mA and/or kV adjustment per patient size (includes targeted exa ms where dose is matched to clinical indication); or iterative reconstruction.
[2020-12-23] MEDS: Omnipaque 350 MG/ML 100 ML BTL IJ (15:11)
[2020-12-23] MEDS: Normal Saline - Diluent 50 ML VIAL IV (15:11)
== END 2020-12-23 02:41 ==
PROVIDERS: PCP Nurse Practitioner Family; Visit Provider Nurse Practitioner Family
DX: I25.41 Coronary artery aneurysm (principal)
CPT/HCPCS: 70496; J3490

== ENCOUNTER 2020-12-25 03:29 | Outpatient (CLI) | payer MEDICARE, MEDICAID, SELFPAY ==
[2020-12-25] MEDS: Albuterol HFA 18 GM 200 PUFF INH IH (12:06)
[2020-12-25] MEDS: Inhaler, Assist Device 1 EACH MC (12:06)
[2020-12-25] MEDS: Methacholine 100 MG VIAL IH (14:18)
--- NOTE | 2020-12-29 12:35 | W.PFT ---
Date of service: 11/24/20 Time of Service: 10:04 Pulmonary Function Test Result Interpretation Spirometry: No evidence of obstructive airways disease, no bronchodilator response Lung Volumes: No evidence of restriction Diffusion Capacity: Mildly reduced, even when corrected to alveolar volume Airway Pressure: Normal Impression Isolated mild diffusion defect Clinical Correlation therefore is recommended. Methacholine Challnege Test Date of Service Date of Service: 12/25/2020 Note After normal pulmonary function testing methacholine challenge testing was carried out up to methacholine concentration of 2 mg/mL, at which point the patient had a 22% drop in FEV1. Impression Strongly positive methacholine challenge test
== END 2020-12-25 03:49 ==
PROVIDERS: PCP Nurse Practitioner Family; Visit Provider Nurse Practitioner Family
DX: J45.40 Moderate persistent asthma, uncomplicated (principal); F17.210 Nicotine dependence, cigarettes, uncomplicated
CPT/HCPCS: 94060; 94726; 94729; 95070; 94010; J7674

== ENCOUNTER 2020-12-26 14:54 | Outpatient (REF) | payer MEDICARE, MEDICAID, SELFPAY ==
--- NOTE | 2020-12-26 13:40 | PAPFT_PTH ---
PATIENT: Dinesh John LOC: [facility] U#:[id number] AGE/SX: 50/F ROOM: RE12/26/[address]: Leticia Moore MD : 1970 BED: DIS: 12/26/2020 SPEC #: [id number] RECD: 12/26/20 17:42 STATUS: BENJAMINPedro Luis REJose #: [id number] LORRAINE: 12/26/20 13:[address]: Leticia Moore DEPT: [facility] Cytology RECD BY: Jojo Gandara ENTERED: 12/26/20 17:42 SP TYPE: PAPFT OTHR DR: Lucy Courtney Tissues: 1 - CX/ENDOCX FOR PAP SMEARS Procedures: PAP THIN PREP/UVM Screening HPV DNA PROBE Comments: [id number]
== END 2020-12-26 15:14 ==
LOC: LBN 14:54
PROVIDERS: PCP Nurse Practitioner Family; Visit Provider Obstetrics & Gynecology
DX: Z12.4 Encounter for screening for malignant neoplasm of cervix (principal); Z11.51 Encounter for screening for human papillomavirus (HPV)
CPT/HCPCS: 88142; 87624

== ENCOUNTER 2021-01-07 10:09 | Emergency (ER) | payer MEDICARE, MEDICAID, SELFPAY ==
[2021-01-07 10:15] VITALS: BP 126/90; PULSE 92; RESP 18; TEMP 36.5; O2SAT 97
[2021-01-07] MEDS: Normal Saline 1,000 ML 1000 ML IV (10:50)
[2021-01-07] MEDS: Normal Saline Flush 10 ML SYR IVP (10:50)
--- NOTE | 2021-01-07 11:00 | W.ED.GENAD ---
Discharge Plan Disposition Patient Disposition: HOME Condition: Stable Discharge Details Clinical Impression: Left flank pain, Abdominal pain Primary Care Provider: Lucy Courtney ED Provider: Tamanna Lemus Home Meds and New Rx's Prescriptions: Continued topiramate [Topamax] 100 mg tablet 100 mg PO BID RF: 0 ondansetron HCl [Zofran] 4 MG tablet 4 mg PO PRN RF: 0 omeprazole 40 MG capsule,delayed release(DR/EC) 40 mg PO BID Qty: 60 RF: 3 prochlorperazine maleate [Compazine] 5 mg tablet 5 - 10 mg PO Q8H PRN PRN (Reason: migraine) Qty: 30 RF: 1 venlafaxine 225 mg Tablet Extended Release 24hr 225 mg PO DAILY RF: 0 aspirin 81 mg tablet,delayed release (DR/EC) 81 mg PO BID Qty: 60 RF: 0 acetaminophen 500 mg tablet 1,000 mg PO Q8H PRN (Reason: pain) Qty: 90 RF: 3 Atrovent HFA 1 PUFF HFA aerosol inhaler 1 puff Inhalation Q8H PRNRF: 0 albuterol sulfate [Proventil HFA] 200 PUFF HFA aerosol inhaler 2 puff Inhalation PRN PRNRF: 0 clonazepam 1 mg Tablet 1 mg PO BID PRNRF: 0 gabapentin 100 mg Capsule 300 mg PO TID RF: 0 ibuprofen 800 mg tablet 800 mg PO Q8H PRN (Reason: pain) Qty: 90 RF: 3 promethazine 25 mg tablet 25 mg PO Q6H PRN (Reason: nausea and vomiting) Qty: 8 RF: 0 Discharge Instructions Instructions: Abdominal Pain (ED), Flank Pain (ED) Additional Instructions: Follow up with primary care provider in 3-5 days. Return to ED sooner if any worsening or concerns. Increase oral fluids. Take medications as prescribed. You are placed on the follow-up list for urology they will help you with follow-up appointment please call your primary care provider with any worsening. Return to the ED for any fever, vomiting, chest pain or shortness of breath. Referrals: Lucy Courtney [Primary Care Provider] - Medical Decision Making 50-year-old female presents to the ER chief complaint left flank pain which radiates around to her left upper and left lower quadrant she states she had similar episode approximately 1 week ago which resolved and it occurred again on Tuesday went away. This morning it increased, associated with nausea no vomiting, no diarrhea. She reports urinary hesitancy, she states that it is trickling. Decreased urine output. She reports drinking cranberry juice which resolved her urinary symptoms. She does have a past medical history of anxiety, asthma, depression, dyspepsia, GERD, hypothyroidism, obstructive sleep apnea, TIA, PTSD, and obesity. COMPARISON: CT CT ABDOMEN PELVIS W from 05/02/2019 FINDINGS: ABDOMEN: Lung Bases: Normal where visualized. Liver: Normal density. No measurable mass. Gallbladder and biliary tract: No radiodense calculus or dilation. Pancreas: Normal density, no abnormal calcifications or inflammatory process. Spleen: Normal. Kidneys: Normal size, contour and axis. No radiodense stones or obstructive uropathy. No masses seen. The cyst mid to lower pole right kidney. Cyst mid to lower pole left kidney. Adrenal glands: No masses seen. Lymph nodes: Within normal limits. Abdominal Aorta: Abdominal portion non-dilated. PELVIS: Bladder: Symmetric distention, no gross wall thickening. Bowel: No obstruction or bowel wall thickening. Normal appendix. Normal quantity of stool. Peritoneal cavity: No ascites, collection or mesenteric inflammatory response. Reproductive organs: Within normal limits. Bones: Mild degenerative disc changes. IMPRESSION: Unremarkable CT scan of the abdomen and pelvis. Patient has received 4 mg of Zofran IV piggyback, 1 L normal saline, and 30 mg of Toradol IV, patient states the Toradol did little for her pain. Discussed CT results with patient she verbalizes understanding. She has no recollection of having any history of cyst to her kidneys due to this I will refer her to urology and her primary care provider to follow-up. Patient has no evidence of kidney injury, CBC is largely within normal limits, CMP is largely within normal limits, urinalysis shows 5-10 RBCs, trace protein, moderate blood negative WBCs no leukocytes no nitrites, culture is not indicated at this time. Patient will be given a tramadol here in department and sent home with a couple tablets. Patient remained hemodynamically stable throughout stay. This text was generated using [employer]ation system, please disregard any oddities of phrase or misspellings. HPI General Mode of arrival: ambulatory. Date/Time Provider Initiated Documentation: 01/07/21 10:34. Limitations to Documentation: no limitations. Information obtained by: patient. HPI Narrative: 50-year-old female presents to the ER chief complaint left flank pain which radiates around to her left upper and left lower quadrant she states she had similar episode approximately 1 week ago which resolved and it occurred again on Tuesday went away. This morning it increased, associated with nausea no vomiting, no diarrhea. She reports urinary hesitancy, she states that it is trickling. Decreased urine output. She reports drinking cranberry juice which resolved her urinary symptoms. She does have a past medical history of anxiety, asthma, depression, dyspepsia, GERD, hypothyroidism, obstructive sleep apnea, TIA, PTSD, and obesity. Related Data Home Medications Medication Instructions Recorded Confirmed Atrovent HFA 1 puff INHALATION Q8H PRN 12/05/16 01/07/21 albuterol sulfate [Proventil HFA] 2 puff INHALATION PRN PRN 02/15/17 01/07/21 ondansetron HCl [Zofran] 4 mg PO PRN 01/31/18 01/07/21 omeprazole 40 mg PO BID #60 tab-cap 03/31/18 01/07/21 clonazepam 1 mg PO BID PRN 11/29/18 01/07/21 gabapentin 300 mg PO TID 11/29/18 01/07/21 prochlorperazine maleate 5 - 10 mg PO Q8H PRN PRN #30 tab 06/11/19 01/07/21 [Compazine] acetaminophen 1,000 mg PO Q8H PRN #90 tab 11/15/19 01/07/21 aspirin 81 mg PO BID #60 tab 11/15/19 01/07/21 venlafaxine 225 mg PO DAILY 11/15/19 01/07/21 ibuprofen 800 mg PO Q8H PRN #90 tab 12/13/19 01/07/21 promethazine 25 mg PO Q6H PRN #8 tab 12/13/19 01/07/21 topiramate 100 mg tablet 100 mg PO BID 12/26/20 01/07/21 Previous Rx's Medication Instructions Recorded omeprazole 40 mg PO BID #60 tab-cap 03/31/18 prochlorperazine maleate 5 - 10 mg PO Q8H PRN PRN #30 tab 06/11/19 [Compazine] acetaminophen 1,000 mg PO Q8H PRN #90 tab 11/15/19 aspirin 81 mg PO BID #60 tab 11/15/19 ibuprofen 800 mg PO Q8H PRN #90 tab 12/13/19 promethazine 25 mg PO Q6H PRN #8 tab 12/13/19 Allergies Allergy/AdvReac Type Severity Reaction Status Date / Time adhesive Allergy Intermediate gets red Verified 01/07/21 10:23 and welts up codeine Allergy Intermediate Itching Unverified 01/07/21 10:23 oxycodone HCl [From Percocet] Allergy Intermediate Anaphylaxsi Unverified 01/07/21 10:23 s morphine Allergy Itching Verified 01/07/21 10:23 cyclobenzaprine AdvReac Headache Unverified 01/07/21 10:23 [From Flexeril] General Stated Complaint: FlankPain CRISTI: 3 Review of Systems Narrative: Constitutional: Negative for weight loss, alert and oriented, well groomed, appears comfortable. HEENT: Denies trauma, headaches, blurry vision, nasal discharge, sore throat, trouble swallowing. Chest: Denies chest pain, palpitations, irregular rhythm, hypertension. Respiratory: Denies Shortness of breath, cough, hemoptysis. GI: Denies vomiting, diarrhea, constipation. Positive left upper quadrant left lower quadrant abdominal pain and nausea. : Denies dysuria, hematuria, positive left flank pain, urinary hesitancy, rectal bleeding. Neuro: Denies dizziness, blurry vision, weakness, syncope, headache or facial numbness. Hematologic: Denies easy bruising, intolerance to heat or cold, hair loss. [facility] Medical History Anxiety treated Arthralgia Asthma Chronic headache Chronic low back pain Chronic pain Cigarette smoker Depression Dyspepsia Family history of colon cancer GERD (gastroesophageal reflux disease) Hidradenitis suppurativa Hyperthyroidism Intertrigo Left lateral epicondylitis s/p debridement 11/30/18 Lumbar degenerative disc disease Malaise and fatigue Migraine Obese Obstructive sleep apnea No CPAP at this time Postmenopausal bleeding resolved Prediabetes PTSD (post-traumatic stress disorder) Syncope Tear of medial meniscus of left knee Aspiration: 04/09/2019; 02/05/19 Depo-Medrol injection: 04/09/2019; 02/05/19 Tendinitis of both rotator cuffs (06/30/18) Thyroid nodule TIA (transient ischemic attack) 06/15 Tobacco use Vertigo Surgical History Colonoscopy - MAC (02/14/18) EGD - MAC (02/14/18) History of total left knee replacement (TKR) (11/14/19) Dr. Brunson Replacement of total knee joint R Rotator Cuff Repair 2x on R, 1 x on L, pt report 2 on the left side S/P left knee arthroscopy partial medial menisectomy and trochlear chondroplasty DOS: 05/17/19 Aspiration/Injection: 06/15/19 Status post left rotator cuff repair DOS: 11/30/2018 Dr. Brunson corticosteroid injection: 02/21/19 Family History Father Rheumatoid arthritis Brother Rheumatoid arthritis Social History Smoking/Tobacco Use Status: Former Tobacco Use Tobacco: How many years used: 25 Smoking risk assessment performed?: Yes Alcohol Intake: current Alcohol Intake frequency: holidays/special occasions only Alcohol type: wine Drug use: Occasionally Substance use type: marijuana Details: marijuana Current gender identity: female Do you feel safe at home: Yes Do you feel safe in your relationship?: Yes Exam Narrative Exam Narrative: Constitutional: Alert and oriented x3. Appears stated age. Obese body habitus. Head: Normocephalic, no trauma. Eyes: Pupils PERRLA, Red reflex noted, EOM's intact. Eyelids symmetrical without lesions, discharge, or swelling. ENT: Bilateral TM's WNL, External ear normal to inspection, no mastoid TTP, swelling, or erythema, Nasal turbinates WNL, no nasal discharge. Normal dentition, Posterior pharynx WNL, no exudate. Chest: RRR, Normal S1, S2, distal pulses intact. Resp: Lungs clear to auscultation bilaterally, no wheezes, rales, or rhonchi. Abdomen: Left upper quadrant left lower quadrant tenderness to palpation, no CVA tenderness bilaterally. No midline T-spine or L-spine T-spine pain. Musculoskeletal: Normal gait, 5/5 strength to all four extremities. Skin: No suspicious rashes or lesions. Capillary refill less than 2 sec. Neurologic: Cranial nerves II-XII intact. Alert and oriented x 3. DTR's intact. Hematologic/Lymphatic: No ecchymosis, no lymphadenopathy. Course Vital Signs Vital signs: Vital Signs Temperature 36.5 C 01/07/21 10:15 Pulse 92 H 01/07/21 10:15 Respiratory Rate 18 01/07/21 10:15 Blood Pressure 126/90 01/07/21 10:15 Pulse Oximetry 97 01/07/21 10:15 Temperature 36.5 C 01/07/21 10:15 Pulse 92 H 01/07/21 10:15 Respiratory Rate 18 01/07/21 10:15 Respiratory Effort Non-Labored 01/07/21 10:21 Blood Pressure 126/90 01/07/21 10:15 Blood Pressure Position Sitting 01/07/21 10:15 Pulse Oximetry 97 01/07/21 10:15 Oxygen Delivery Method Room Air 01/07/21 10:15 Oxygen Flow Rate 0 01/07/21 10:15 Pain Level 10 01/07/21 10:15
[2021-01-07 11:01] LABS: Abs Immature Grans 0.02 10^3/uL (0.0-0.06); Absolute Basophil Count 0.01 10^3/uL (0.0-0.2); Absolute Lymphocyte Count 3.15 10^3/uL (1.2-3.4); Absolute Monocyte Count 0.68 10^3/uL (0.1-0.8); Absolute Neutrophil Count 3.94 10^3/uL (1.2-6.7); Basophils % 0.1; HGB 15.1 g/dL (11.2-15.7); Immature Grans % 0.3; Lymphocytes % 40.4; MCH 28.8 pg (27.0-33.0); MCHC 32.1 % (32.0-36.0); MCV 89.7 fL (80-95); MPV 9.9 fL (8.0-11.0); Monocytes % 8.7; Neutrophils % 50.5; Nucleated RBC 0 %; Platelet Count 295 10^3/uL (130-400); RBC 5.24 10^6/uL (3.93-5.22); RDW 13.5 % (11.7-14.6); RDW-SD 44.3 fL
[2021-01-07] MEDS: Ondansetron 4 MG/2 ML VIAL IVP (11:11)
[2021-01-07 11:15] LABS: ALT 41 U/L (14-59); AST 30 U/L (15-37); Albumin 3.8 g/dL (3.4-5.0); Alkaline Phosphatase 88 U/L (46-116); BUN 11 mg/dL (7-18); CREATININE 0.9 mg/dL (0.55-1.02); Calcium 9.3 mg/dL (8.5-10.1); Chloride 105 mmol/L (98-107); Glucose 124 mg/dL (74-106); Potassium 4.7 mmol/L (3.5-5.1); Sodium 139 mmol/L (136-145); Total Protein 8.1 g/dL (6.4-8.2)
[2021-01-07 11:50] LABS: Bilirubin Negative (Negative); Blood Moderate (Negative); Clarity Clear (Clear); Glucose Negative (Negative); Ketones Negative (Negative); Leukocyte Esterase Negative (Negative); Nitrite Negative (Negative); Specific Gravity 1.015 (1.005-1.025); Urobilinogen 0.2 EU/dL (Up TO 0.2); pH 5.5 (5-8)
--- NOTE | 2021-01-07 12:00 | DI.CT_ITS ---
EXAM: CT ABDOMEN PELVIS WO CLINICAL HISTORY: Left flank R/O stone. TECHNIQUE: Imaging Protocol: Axial computed tomography images with coronal and sagittal reformatted images were created and reviewed. Oral: No COMPARISON: CT CT ABDOMEN PELVIS W from 05/02/2019 FINDINGS: ABDOMEN: Lung Bases: Normal where visualized. Liver: Normal density. No measurable mass. Gallbladder and biliary tract: No radiodense calculus or dilation. Pancreas: Normal density, no abnormal calcifications or inflammatory process. Spleen: Normal. Kidneys: Normal size, contour and axis. No radiodense stones or obstructive uropathy. No masses seen. The cyst mid to lower pole right kidney. Cyst mid to lower pole left kidney. Adrenal glands: No masses seen. Lymph nodes: Within normal limits. Abdominal Aorta: Abdominal portion non-dilated. PELVIS: Bladder: Symmetric distention, no gross wall thickening. Bowel: No obstruction or bowel wall thickening. Normal appendix. Normal quantity of stool. Peritoneal cavity: No ascites, collection or mesenteric inflammatory response. Reproductive organs: Within normal limits. Bones: Mild degenerative disc changes. IMPRESSION: Unremarkable CT scan of the abdomen and pelvis. RADIATION DOSE DELIVERED: 1,429.66mGy.cm Total DLP DATA REPOSITORY: All CT scans at this facility are submitted to the National Radiology Data Registry (NRDR) Dose Index Registry (DIR) with the [employer] (ACR). RADIATION OPTIMIZATION: All CT scans at this facility use at least one of these dose optimization te chniques: automated exposure control; mA and/or kV adjustment per patient size (includes targeted exa ms where dose is matched to clinical indication); or iterative reconstruction.
[2021-01-07 12:10] LABS: Bacteria Few HPF (Negative); C & S Indicated? No; Casts Negative LPF (Negative); Crystals Negative HPF (Negative); Epithelial Cells Few HPF (Negative); Mucus Negative (Negative); Other Cells Negative (Negative); WBC Negative HPF (0-5)
[2021-01-07 12:55] VITALS: BP 151/93; PULSE 68; RESP 18; TEMP 36.4; O2SAT 97
[2021-01-07] MEDS: Ketorolac 30 MG/ML VIAL IVP (13:30)
[2021-01-07] MEDS: traMADol 50 MG TAB PO (13:31)
--- NOTE | 2021-01-07 13:50 | NUR.NOTE ---
Nursing Note: Referral faxed to [facility] Urology for follow up of bilateral renal cysts. Dennise Martinez
== END 2021-01-07 13:44 | disposition home or self-care (01) ==
PROVIDERS: Emergency Provider Registered Nurse Emergency; PCP Nurse Practitioner Family
DX: R10.12 Left upper quadrant pain (principal); R10.32 Left lower quadrant pain; R11.0 Nausea; N28.1 Cyst of kidney, acquired
CPT/HCPCS: 36415; 80053; 96361; 96374; 96375; 99285; 74176; 81003; 81015; 85025; 99284; J1885; J2405

== ENCOUNTER 2021-01-13 03:23 | Outpatient (CLI) | payer MEDICARE, MEDICAID, SELFPAY ==
[2021-01-13 09:44] LABS: TSH (W/Ref FT4) 0.56 uIU/mL (0.36-3.74)
[2021-01-13 17:30] LABS: Thyroperoxidase Antibody 39 U/mL (<=60)
== END 2021-01-13 03:24 | disposition home or self-care (01) ==
LOC: LBO 03:23
PROVIDERS: PCP Nurse Practitioner Family; Visit Provider Otolaryngology Otolaryngology/Facial Plastic Surgery
DX: E04.1 Nontoxic single thyroid nodule (principal); L74.9 Eccrine sweat disorder, unspecified; Z86.39 Personal history of other endocrine, nutritional and metabolic disease
CPT/HCPCS: 36415; 84443; 86376

== ENCOUNTER → 2021-01-19 13:27 | Outpatient (BNVA) | payer MEDICARE, MEDICAID, SELFPAY | PROVIDERS: PCP Nurse Practitioner Family; Referring Provider Nurse Practitioner Family; Visit Provider Surgery | DX: R13.10 Dysphagia, unspecified (principal); F17.210 Nicotine dependence, cigarettes, uncomplicated | CPT/HCPCS: 99203; 99215 ==

== ENCOUNTER → 2021-01-28 14:01 | Outpatient (BNVA) | payer MEDICARE, MEDICAID, SELFPAY | PROVIDERS: PCP Nurse Practitioner Family; Referring Provider Nurse Practitioner Family; Visit Provider Nurse Practitioner Gerontology | DX: R31.0 Gross hematuria (principal); N28.1 Cyst of kidney, acquired; R10.9 Unspecified abdominal pain | CPT/HCPCS: 81003; 99215 ==

== ENCOUNTER 2021-02-09 06:03 | Day surgery (SDC) | payer MEDICARE, MEDICAID, SELFPAY ==
[2021-02-09] MEDS: Lactated Ringers 1,000 ML 80 ML IV (06:50)
--- NOTE | 2021-02-09 07:03 | W.PM.HP.N ---
Date of service: 02/09/21 Time of Service: 07:04 Assessment and Plan Assessment and plan (1) Gross hematuria: Status: Acute Assessment and plan: For cystoscopy with bilateral retrograde pyelogram to complete her hematuria workup. We will be prepared to do a TURBT if a tumor is identified. (2) GERD (gastroesophageal reflux disease): Status: None Assessment and plan: She will have upper endoscopy by Dr Bae under the same anesthetic History of Present Illness History of Present Illness Chief Complaint: Gross hematuria Narrative: This is a 50-year-old woman who has a history of gross hematuria. She was evaluated with a noncontrast CT scan which demonstrated renal cysts but no solid masses and no kidney stones. She presents now for cystoscopy with retrograde pyelogram to complete her hematuria work-up. She continues to have left flank and abdominal pain. Review of Systems Narrative: No fevers or chills Hx vertigo. No vision change or dysphasia No diabetes or thyroid No shortness of breath, cough or hemoptysis No chest pain or palpitations Hx GERD. No hepatitis, ulcers, jaundice, diarrhea or constipation c/o migraine headaches. No seizures, strokes or peripheral neuropathy No bleeding disorders or anemia No gout PFSH Medical History Anxiety treated Arthralgia Asthma Chronic headache Chronic low back pain Chronic pain Cigarette smoker Depression Dyspepsia Family history of colon cancer GERD (gastroesophageal reflux disease) Gross hematuria Hidradenitis suppurativa Hyperthyroidism Intertrigo Left lateral epicondylitis s/p debridement 11/30/18 Lumbar degenerative disc disease Malaise and fatigue Migraine Obese Obstructive sleep apnea No CPAP at this time Postmenopausal bleeding resolved Prediabetes PTSD (post-traumatic stress disorder) Renal cyst Syncope Tear of medial meniscus of left knee Aspiration: 04/09/2019; 02/05/19 Depo-Medrol injection: 04/09/2019; 02/05/19 Tendinitis of both rotator cuffs (06/30/18) Thyroid nodule TIA (transient ischemic attack) 06/15 Tobacco use Vertigo Surgical History (Updated 02/09/21 @ 06:26 by Majo Banks) Colonoscopy - MAC (02/14/18) EGD - MAC (02/14/18) History of back surgery lower back, 07/2020 History of total left knee replacement (TKR) (11/14/19) Dr. Brunson Replacement of total knee joint R Rotator Cuff Repair 2x on R, 1 x on L, pt report 2 on the left side S/P left knee arthroscopy partial medial menisectomy and trochlear chondroplasty DOS: 05/17/19 Aspiration/Injection: 06/15/19 Status post left rotator cuff repair DOS: 11/30/2018 Dr. Brunson corticosteroid injection: 02/21/19 Family History Father Rheumatoid arthritis Brother Rheumatoid arthritis Social History Smoking/Tobacco Use Status: Current-Occasional Tobacco Type: cigarettes Tobacco: How many years used: 25 Smoking risk assessment performed?: Yes Alcohol Intake: current Alcohol Intake frequency: holidays/special occasions only Alcohol type: wine Drug use: Occasionally Substance use type: marijuana Details: marijuana : t-1, half of bowl Current gender identity: female Do you feel safe at home: Yes Do you feel safe in your relationship?: Yes Meds Home Medications and Allergies Allergies Allergy/AdvReac Type Severity Reaction Status Date / Time adhesive Allergy Intermediate gets red Verified 02/09/21 06:21 and welts up codeine Allergy Intermediate Itching Unverified 02/09/21 06:21 oxycodone HCl [From Percocet] Allergy Intermediate Anaphylaxsi Unverified 02/09/21 06:21 s morphine Allergy Itching Verified 02/09/21 06:21 cyclobenzaprine AdvReac Headache Unverified 02/09/21 06:21 [From Flexeril] Home Medications Medication Instructions Recorded Confirmed Type Atrovent HFA 1 puff INHALATION Q8H PRN 12/05/16 02/09/21 History albuterol sulfate [Proventil HFA] 2 puff INHALATION PRN PRN 02/15/17 02/09/21 History ondansetron HCl [Zofran] 4 mg PO PRN 01/31/18 02/09/21 History clonazepam 1 mg PO BID PRN 11/29/18 02/09/21 History gabapentin 300 mg PO TID 11/29/18 02/09/21 History prochlorperazine maleate 5 - 10 mg PO Q8H PRN PRN #30 tab 06/11/19 02/09/21 Rx [Compazine] acetaminophen 1,000 mg PO Q8H PRN #90 tab 11/15/19 02/09/21 Rx venlafaxine 225 mg PO DAILY 11/15/19 02/09/21 History ibuprofen 800 mg PO Q8H PRN #90 tab 12/13/19 02/09/21 Rx promethazine 25 mg PO Q6H PRN #8 tab 12/13/19 02/09/21 Rx topiramate 100 mg tablet 100 mg PO BID 12/26/20 02/09/21 History pantoprazole 40 mg granules 40 mg PO DAILY #30 ea 01/19/21 02/09/21 Rx delayed-release for susp in packet umeclidinium 62.5 mcg/actuation 1 inh INHALATION DAILY 01/19/21 02/09/21 History blister powder for inhalation Exam Const General: cooperative and no acute distress Neck Neck: supple Resp Effort & Inspection: normal respiratory effort Auscultation: clear to auscultation bilaterally Cardio Rate: regular rate Rhythm: regular rhythm GI Palpation: soft and no masses Neuro General: patient alert, patient awake and patient oriented x3 COVID-19 Screening Have you, or household traveled for leisure in last 14 days?: No Had IN PERSON contact w/suspected or confirmed C-19 person: No
--- NOTE | 2021-02-09 08:02 | STOM_PTH ---
PATIENT: Dinesh John LOC: [facility] U#:[id number] AGE/SX: 50/F ROOM: RE02/09/[address]: Jason Vásquez MD : 1970 BED: DIS: 02/09/2021 SPEC #: [id number] RECD: 02/09/21 12:38 STATUS: SANDRA REQ #: [id number] LORRAINE: 02/09/21 08:[address]: Jason Vásquez DEPT: Surgical Specimen RECD BY: Jojo Gandara ENTERED: 02/09/21 12:43 SP TYPE: STOMACH OTHR DR: Lucy Courtney Tissues: 1 - BIOPSY BOWEL 2 - BIOPSY BOWEL 3 - STOMACH BIOPSY 4 - STOMACH BIOPSY 5 - STOMACH BIOPSY 6 - ESOPHAGUS BIOPSY 7 - ESOPHAGUS BIOPSY 8 - ESOPHAGUS BIOPSY Procedures: GROSS AND MICRO LEVEL 4 Comments: [id number]
--- NOTE | 2021-02-09 08:11 | COLE_ITS ---
Date of service: 02/09/21 Time of Service: 08:11 Colonoscopy Report Date of procedure: 02/09/21 Pre-op diagnosis general: medication efractory GERD Post-op diagnosis procedure note: other (duodentis/moderate gastritis/severe esophagitis w/ ulcer ) Procedure: EGD w/ bx Surgeon: Tanna Bae Anesthesia proc note operative: GETA Estimated blood loss (mL): 1 Pathology: other Complications: None Disposition: same day Procedure Description: After informed consent was obtained the patient was take to the procedure room and placed in a supine position. Monitors were applied and a time out was done. The patients name, date of , procedure type, allergies to medications and metal in their body was reviewed. A bite block was placed and the patient was sedated. Once sedated and comfortable the gastroscope was advanced through the oropharynx which was grossly normal into the esophagus. The proximal and mid-esophagus were esophagitis. There was noted to be reflux of gastric contents up to the mid esophagus throughout the course of the case. In the distal esophagus there was severe esophagitis w/ulcer noted. There did not appear to be any Kaur's. There is no varices, diverticula, or stricture of the esophagus. The scope was advanced into the stomach and through the pylorus into the 3rd portion of the duodenum. The duodenum was noted to be mild doudentits. Biopsies were done-all specimen is retrieved and no bleeding is noted. The scope was retracted back into the stomach and biopsies were done to rule out H. pylori. There were no ulcers. Is moderate gastritis in a striped fashion radiating from the antrum. There is no active or old blood. The scope was retroflexed. The cardia and fundus were noted to be normal. There no a hiatal hernia noted. The scope was retracted back into the esophagus and biopsies were done of the GE junction to rule out Kaur's. The Z line was irregular. The GE junction was at 38 cm. The scope was removed and the patient was woken up and taken back to [facility] in stable condition. Follow up: 2 wks
[2021-02-09] MEDS: ceFAZolin 1 GM/50 ML BAG IVPB (08:12)
--- NOTE | 2021-02-09 08:15 | W.PM.DSUDISC ---
Discharge Plan Disposition Patient Disposition: HOME Condition: Good Discharge Details Reason For Visit: egd/cysto Attending Provider: Jason Vásquez Primary Care Provider: Lucy Courtney Home Meds and New Rx's Prescriptions: New pantoprazole [Protonix] 40 mg tablet,delayed release (DR/EC) 40 mg PO BID Qty: 60 RF: 12 sucralfate [Carafate] 1 gram tablet 1 g PO QACHS Qty: 120 RF: 12 Continued topiramate [Topamax] 100 mg tablet 100 mg PO BID RF: 0 Incruse Ellipta 62.5 mcg/actuation blister with device 1 inh inhalation DAILY RF: 0 ondansetron HCl [Zofran] 4 MG tablet 4 mg PO PRN RF: 0 prochlorperazine maleate [Compazine] 5 mg tablet 5 - 10 mg PO Q8H PRN PRN (Reason: migraine) Qty: 30 RF: 1 venlafaxine 225 mg Tablet Extended Release 24hr 225 mg PO DAILY RF: 0 acetaminophen 500 mg tablet 1,000 mg PO Q8H PRN (Reason: pain) Qty: 90 RF: 3 Atrovent HFA 1 PUFF HFA aerosol inhaler 1 puff Inhalation Q8H PRNRF: 0 albuterol sulfate [Proventil HFA] 200 PUFF HFA aerosol inhaler 2 puff Inhalation PRN PRNRF: 0 clonazepam 1 mg Tablet 1 mg PO BID PRNRF: 0 gabapentin 100 mg Capsule 300 mg PO TID RF: 0 promethazine 25 mg tablet 25 mg PO Q6H PRN (Reason: nausea and vomiting) Qty: 8 RF: 0 Discontinued pantoprazole [Protonix] [address] for susp in packet 40 mg PO DAILY Qty: 30 RF: 12 ibuprofen 800 mg tablet 800 mg PO Q8H PRN (Reason: pain) Qty: 90 RF: 3 Discharge Instructions Additional Instructions: Findings: severe esophagitis/gastritis/duodenitis and GERD Continue with lifestyle modifications: no alcohol, tobacco products, Aspirin or NSAID's (ibuprofen, Motrin, Naprosyn, aleve, etc). Try to avoid: soda pop/any carbonated beverages, caffeine (including tea & chocolate), and acidic foods, (tomatoes, citrus, onions, peppermints) spicy foods. Do not lie down for 30 minutes after eating, and do not eat 2 hours prior to bedtime. Avoid wearing tight fitting clothing/ belts. Stop smoking. Follow up: Dr. Bae on Please call if you develop: fevers >101.5 Nausea or Vomiting Abdominal pain that is not transient DAY SURGERY UNIT POST COLONOSCOPY INSTRUCTIONS 1. Because there will be medication in your system for the next 24 hours, you may feel a little sleepy. Your coordination will be affected. Therefore: a. Do not drive or operate dangerous equipment for 24 hours. b. Do not drink alcohol beverages for 24 hours (not even beer). c. Plan to go home and rest for the day. 2. Generally there are no restrictions on your activity after a day or so has gone by, but you may feel a bit fatigued for a few days. 3 After you arrive home you may have a light meal and return to a normal diet as you can tolerate it without feeling sick to your stomach. 4. After surgery, you may feel pain or discomfort. This should be only transient, but if it persists please contact your doctor. 5. If there are any questions regarding the findings of your procedure, please feel free to contact your doctor. 6. If you are unable to contact your doctor with a problem, contact the hospital at [phone]. 7. Continue all your regular medications unless directed otherwise. I understand the above instructions and have no questions. Signature of Patient or Responsible Adult Escort Date/Time Name of Responsible Adult Escort Signature of Nurse Date/Time Diet:: small light meals x 24 hrs DS: Diagnosis Discharge Diagnosis (1) Gross hematuria: Status: Acute (2) GERD (gastroesophageal reflux disease): Status: None (3) Esophagitis, [place] grade A: Status: Acute (4) Chronic erosive gastritis: Status: Acute (5) Duodenitis: Status: Acute (6) GERD with esophagitis: Status: Acute
[2021-02-09] MEDS: Lidocaine 2% Jelly 6 ML SYR (08:16)
--- NOTE | 2021-02-09 08:20 | DI.RAD_ITS ---
EXAM: XR RETROGRADE IN OR CLINICAL HISTORY: Gross hematuria. TECHNIQUE: 2D digital imaging was performed. COMPARISON: No exams were available for comparison FINDINGS: Fluoroscopy was provided during urologic procedure. Radiologist not present See seizure notes for details. Total fluoroscopy time 31 seconds; cumulative dose 13.6mGy IMPRESSION: DATA REPOSITORY: RADIATION DOSE DELIVERED:
[2021-02-09] MEDS: Omnipaque 300 MG/ML 50 ML BTL (08:24)
--- NOTE | 2021-02-09 08:29 | PDOC.DSDIS_ITS ---
Discharge Plan Disposition Patient Disposition: HOME Condition: Good Discharge Details Reason For Visit: egd/cysto Attending Provider: Jason Vásquez Primary Care Provider: Lucy Courtney Home Meds and New Rx's Prescriptions: New pantoprazole [Protonix] 40 mg tablet,delayed release (DR/EC) 40 mg PO BID Qty: 60 RF: 12 sucralfate [Carafate] 1 gram tablet 1 g PO QACHS Qty: 120 RF: 12 Continued topiramate [Topamax] 100 mg tablet 100 mg PO BID RF: 0 Incruse Ellipta 62.5 mcg/actuation blister with device 1 inh inhalation DAILY RF: 0 ondansetron HCl [Zofran] 4 MG tablet 4 mg PO PRN RF: 0 prochlorperazine maleate [Compazine] 5 mg tablet 5 - 10 mg PO Q8H PRN PRN (Reason: migraine) Qty: 30 RF: 1 venlafaxine 225 mg Tablet Extended Release 24hr 225 mg PO DAILY RF: 0 acetaminophen 500 mg tablet 1,000 mg PO Q8H PRN (Reason: pain) Qty: 90 RF: 3 Atrovent HFA 1 PUFF HFA aerosol inhaler 1 puff Inhalation Q8H PRNRF: 0 albuterol sulfate [Proventil HFA] 200 PUFF HFA aerosol inhaler 2 puff Inhalation PRN PRNRF: 0 clonazepam 1 mg Tablet 1 mg PO BID PRNRF: 0 gabapentin 100 mg Capsule 300 mg PO TID RF: 0 promethazine 25 mg tablet 25 mg PO Q6H PRN (Reason: nausea and vomiting) Qty: 8 RF: 0 Discontinued pantoprazole [Protonix] [address] for susp in packet 40 mg PO DAILY Qty: 30 RF: 12 ibuprofen 800 mg tablet 800 mg PO Q8H PRN (Reason: pain) Qty: 90 RF: 3 Discharge Instructions Additional Instructions: Followup with urology yearly for urinalysis Findings: severe esophagitis/gastritis/duodenitis and GERD Continue with lifestyle modifications: no alcohol, tobacco products, Aspirin or NSAID's (ibuprofen, Motrin, Naprosyn, aleve, etc). Try to avoid: soda pop/any carbonated beverages, caffeine (including tea & chocolate), and acidic foods, (tomatoes, citrus, onions, peppermints) spicy foods. Do not lie down for 30 minutes after eating, and do not eat 2 hours prior to bedtime. Avoid wearing tight fitting clothing/ belts. Stop smoking. Follow up: Dr. Bae on Please call if you develop: fevers >101.5 Nausea or Vomiting Abdominal pain that is not transient DAY SURGERY UNIT POST COLONOSCOPY INSTRUCTIONS 1. Because there will be medication in your system for the next 24 hours, you may feel a little sleepy. Your coordination will be affected. Therefore: a. Do not drive or operate dangerous equipment for 24 hours. b. Do not drink alcohol beverages for 24 hours (not even beer). c. Plan to go home and rest for the day. 2. Generally there are no restrictions on your activity after a day or so has gone by, but you may feel a bit fatigued for a few days. 3 After you arrive home you may have a light meal and return to a normal diet as you can tolerate it without feeling sick to your stomach. 4. After surgery, you may feel pain or discomfort. This should be only transient, but if it persists please contact your doctor. 5. If there are any questions regarding the findings of your procedure, please feel free to contact your doctor. 6. If you are unable to contact your doctor with a problem, contact the hospital at [phone]. 7. Continue all your regular medications unless directed otherwise. I understand the above instructions and have no questions. Signature of Patient or Responsible Adult Escort Date/Time Name of Responsible Adult Escort Signature of Nurse Date/Time Activity:: Activity as Tolerated Shower/Bathe:: 24 hours Diet:: small light meals x 24 hrs Discharge Orders Discharge Orders: Discharge Order (Routine); Ordered 02/09/21 Ordered By: Jason Vásquez DS: Diagnosis Discharge Diagnosis (1) Gross hematuria: Status: Acute (2) GERD (gastroesophageal reflux disease): Status: None (3) Esophagitis, [place] grade A: Status: Acute (4) Chronic erosive gastritis: Status: Acute (5) Duodenitis: Status: Acute (6) GERD with esophagitis: Status: Acute
--- NOTE | 2021-02-09 08:33 | W.PM.OP ---
Date of service: 02/09/21 Time of Service: 08:33 Operative Note Operative Note DATE OF PROCEDURE: 02/09/21 PRE-OP DIAGNOSIS: Gross hematuria POST-OP DIAGNOSIS: same (duodentis/moderate gastritis/severe esophagitis w/ ulcer ) PROCEDURE: Cystoscopy with bilateral retrograde pyelograms SURGEON: Jason Vásquez ANESTHESIA TYPE: General LMA/ETT Refer to Anesthesia Record ESTIMATED BLOOD LOSS: 1 PATHOLOGY: none sent COMPLICATIONS: None Patient was transported to: PACU Patient's condition: stable Indications: This is a 50-year-old woman who presented to the emergency room with left flank pain. She was evaluated with a noncontrast CT scan which demonstrated simple renal cysts but no solid renal masses and no stones. She does have a history of gross blood in the urine. She also sees some blood when she wipes after voiding. She presents for cystoscopy with bilateral retrograde pyelogram to complete her hematuria work-up. We will be prepared to resect any bladder tumor should 1 be identified. Findings: Normal bladder, ureters and collecting systems bilaterally Procedure Description: The patient was brought to the operating room on 02/09/2021. She was given preoperative IV antibiotics. After successful induction of general anesthesia, she was placed in the supine position. Upper endoscopy was then performed by Dr. Bae and the general surgical team. That portion of the surgery will be documented elsewhere in the patient's chart After completion of the upper endoscopy, the patient was repositioned in the dorsal lithotomy position. Her genitalia was prepped and draped. 2% Xylocaine jelly was instilled into the urethra to act as a local anesthetic. A 22 Chinese rigid cystoscope was passed through the urethra into the bladder. The bladder was inspected using a 30 degree lens. A few small polyps were seen at the urethral meatus. The base of the bladder had distended somewhat. Otherwise, both ureteral orifices appeared normal in configuration and location. Using a 6 Chinese access catheter, retrograde pyelograms were then performed. We passed each access catheter just within the ureteral orifice and injected Omnipaque through the access catheter under fluoroscopic guidance. Both ureters and collecting systems appeared normal with no filling defects. Both sides drained promptly on a 5-minute drainage film. The access catheter was then removed and the bladder was reinspected using both a 30 and a 70 degree lens. No papillary or nodular lesions were identified. No active bleeding was seen. The patient tolerated this procedure well with no complications. The scope was removed. We identified no significant uropathology. We recommend yearly urinalyses and a repeat work-up in 3 to 5 years if the hematuria persists. She might also benefit from topical hormone cream for the urethral changes.
[2021-02-09 08:49] VITALS: BP 100/50; PULSE 82; RESP 19; TEMP 36.1; O2SAT 98
[2021-02-09 08:54] VITALS: BP 103/62; PULSE 79; RESP 21; TEMP 36.1; O2SAT 99
[2021-02-09] MEDS: Albuterol/Ipratropium 3 ML UPD VIAL (08:54)
[2021-02-09 08:59] VITALS: BP 112/63; PULSE 77; RESP 19; TEMP 36.1; O2SAT 100
[2021-02-09 09:14] VITALS: BP 114/55; PULSE 80; RESP 17; TEMP 36.2; O2SAT 98
[2021-02-09 09:54] VITALS: BP 104/65; PULSE 73; RESP 16; TEMP 36.1; O2SAT 94
[2021-02-09] MEDS: Phenazopyridine 200 MG TAB PO (10:00)
--- NOTE | 2021-02-09 12:48 | W.PM.ENDDOP ---
Date of service: 02/09/21 Time of Service: 12:48 Endoscopy Report DATE OF PROCEDURE: 02/09/21 PRE-OP DIAGNOSIS: Medication refractory GERD POST-OP DIAGNOSIS: same (Duodenitis/moderate gastritis/severe esophagitis with ulceration) PROCEDURE: EGD with biopsy ANESTHESIA: GETA ESTIMATED BLOOD LOSS: 1 PATHOLOGY: other COMPLICATIONS: None DISPOSITION: same day PROCEDURE DESCRIPTION: After informed consent was obtained the patient was take to the procedure room and placed in a supine position. Monitors were applied and a time out was done. The patients name, date of , procedure type, allergies to medications and metal in their body was reviewed. A bite block was placed and the patient was sedated. Once sedated and comfortable the gastroscope was advanced through the oropharynx which was grossly normal into the esophagus. The proximal and mid-esophagus show esophagitis. There was noted to be reflux of gastric contents up to the mid esophagus throughout the course of the case. In the distal esophagus there was severe esophagitis w/ulceration- linear breaks <1cm noted. There did not appear to be any Kaur's. There is no varices, diverticula, or stricture of the esophagus. The scope was advanced into the stomach and through the pylorus into the 3rd portion of the duodenum. The duodenum was noted to be mild doudentits. Biopsies were done-all specimen is retrieved and no bleeding is noted. The scope was retracted back into the stomach and biopsies were done to rule out H. pylori. There were no ulcers. There is moderate gastritis in a striped fashion radiating from the antrum. There is no active or old blood. The scope was retroflexed. The cardia and fundus were noted to be normal. There no a hiatal hernia noted. The scope was retracted back into the esophagus and biopsies were done of the GE junction to rule out Kaur's. The Z line was irregular. The GE junction was at 38 cm. The scope was removed and the patient was woken up and taken back to [facility] in stable condition. Follow up: 2 wks
== END 2021-02-09 10:48 | disposition home or self-care (01) ==
PROVIDERS: Surgery; PCP Nurse Practitioner Family; Visit Provider Urology
PROC: (CPT 74450; principal; 2021-02-09 07:30)
PROC: 0DJ68ZZ Inspection of Stomach, Via Natural or Artificial Opening Endoscopic (ICD-10-PCS; CPT 43235; 2021-02-09 07:30)
DX: K22.10 Ulcer of esophagus without bleeding (principal); K21.00 Gastro-esophageal reflux disease with esophagitis, without bleeding; K29.70 Gastritis, unspecified, without bleeding; K29.80 Duodenitis without bleeding
CPT/HCPCS: 43239; 52005; 88305; NC; 74420; J0690; J1100; J2001; J2250; J2405; J2704; J7620; Q9967

== ENCOUNTER → 2021-02-23 12:55 | Outpatient (BNVA) | payer MEDICARE, MEDICAID, SELFPAY | PROVIDERS: PCP Nurse Practitioner Family; Referring Provider Nurse Practitioner Family; Visit Provider Surgery | DX: Z48.815 Encounter for surgical aftercare following surgery on the digestive system (principal) | CPT/HCPCS: 99212 ==

== ENCOUNTER 2021-05-11 14:37 | Emergency (ER) | payer MEDICARE, MEDICAID, SELFPAY ==
[2021-05-11 14:57] VITALS: BP 127/91; PULSE 73; RESP 20; TEMP 36.7; O2SAT 98
[2021-05-11] MEDS: diphenhydrAMINE 50 MG/ML VIAL 25 MG IVP (15:32)
[2021-05-11] MEDS: Ketorolac 30 MG/ML VIAL IVP (15:34)
[2021-05-11] MEDS: Prochlorperazine 10 MG/2 ML VIAL IVP (15:36)
[2021-05-11] MEDS: Normal Saline 1,000 ML 1000 ML IV (15:37)
[2021-05-11] MEDS: methylPREDNISolone SUCC 125 MG VIAL IVP (15:37)
[2021-05-11] MEDS: ACETAMINOPHEN 1,000 MG/100 ML BTL 400 MG IVPB (15:42)
--- NOTE | 2021-05-11 15:59 | NUR.NOTE ---
pt states that she already feels better Nursing Note:
--- NOTE | 2021-05-11 16:23 | ED.GENADUL_ITS ---
Discharge Plan Disposition Patient Disposition: HOME Condition: Good Discharge Details Clinical Impression: Migraine Primary Care Provider: Lucy Courtney ED Provider: Goran Coy Home Meds and New Rx's Prescriptions: Continued topiramate [Topamax] 100 mg tablet 100 mg PO BID RF: 0 ondansetron HCl [Zofran] 4 MG tablet 4 mg PO PRN RF: 0 venlafaxine 225 mg Tablet Extended Release 24hr 225 mg PO DAILY RF: 0 acetaminophen 500 mg tablet 1,000 mg PO Q8H PRN (Reason: pain) Qty: 90 RF: 3 Atrovent HFA 1 PUFF HFA aerosol inhaler 1 puff Inhalation Q8H PRNRF: 0 albuterol sulfate [Proventil HFA] 200 PUFF HFA aerosol inhaler 2 puff Inhalation PRN PRNRF: 0 clonazepam 1 mg Tablet 1 mg PO BID PRNRF: 0 gabapentin 100 mg Capsule 300 mg PO TID RF: 0 promethazine 25 mg tablet 25 mg PO Q6H PRN (Reason: nausea and vomiting) Qty: 8 RF: 0 pantoprazole [Protonix] 40 mg tablet,delayed release (DR/EC) 40 mg PO BID Qty: 60 RF: 12 sucralfate [Carafate] 1 gram tablet 1 g PO QACHS Qty: 120 RF: 12 Discharge Instructions Instructions: Acute Headache (ED) Additional Instructions: At this time your headache has improved. Please avoid any nitrate high foods, caffeine, and make sure you are drinking plenty of fluids. If you notice any worsening of your symptoms, or any new symptoms such as vomiting, diarrhea, fever, chills, shortness of breath, chest pain, numbness, weakness, or fainting , please return immediately to the emergency department for reevaluation. Please follow up with your primary care provider as soon as possible for reassessment and reevaluation. As always, it was a pleasure participating in your medical care today. Referrals: Lucy Courtney [Primary Care Provider] - Discharge Data Discharge Date/Time-TO BE ENTERED AT DEPARTURE: 05/11/21 16:51 Medical Decision Making 50-year-old female with a past medical history of migraines who pre sents today for evaluation of migraine. Patient states that her headache started this morning at 4 AM. She vomited once or twice earlier today. She did take her Phenergan and Narivio Band and this did not improve her symptoms at all. The patient denies any headache red flags of worst headache of life, thunderclap headache, neck pain, fever, chills, concerning family history of polycystic kidney disease, Marfan syndrome, Elsy-Danlos syndrome, abdominal aortic aneurysm, aortic dissection, or intracranial aneurysm. No other complaints at this time. No visual deficits. Patient has had a negative MRA and a negative CTA here recently. Physical exam is unremarkable, no nuchal meningitides or meningeal signs. No neurologic deficits. Signs and symptoms appear consistent with migraine. No indication for LP at this point as symptoms are inconsistent with acute intracranial hemorrhage. Patient was given migraine cocktail and had complete resolution of her symptoms. After this she was reassessed and continues to demonstrate no focal neurologic deficits. No meningeal signs, no concerning abnormalities. With complete resolution of her headache her symptoms appear clinically consistent with migraine and inconsistent with other acute life-threatening etiologies. Patient is requesting discharge. Patient will be discharged home. Discussed red flags which to return. I have extensively reviewed the treatment plan and discharge instructions with the patient. I have addressed all patient concerns at this time. The patient was made aware of what symptoms to monitor for that would warrant a return to the emergency department. Discussed the plan with the patient, they demonstrate verbal understanding and agreement with our assessment and plan at this time. The documentation in this chart was dictated using [employer] dictation software. Please excuse any dictation errors. FINDINGS: Head CT: No intracranial hemorrhage, mass or infarct is seen. The ventricles are normal in size. There is no significant atrophy. There are no abnormal enhancing lesions. The visualized portions of the sinuses and mastoid air cells appear clear. Internal Carotid Arteries: Petrous: Normal. Cavernous: Normal. Cerebral: Normal. Middle Cerebral Arteries: Right: No aneurysm, occlusion or significant stenosis. Left: No aneurysm, occlusion or significant stenosis. Anterior Cerebral Arteries: Right: No aneurysm, occlusion or significant stenosis. Left: No aneurysm, occlusion or significant stenosis. Posterial Cerebral Arteries: Right: No aneurysm, occlusion or significant stenosis. Left: No aneurysm, occlusion or significant stenosis. Vertebral Arteries: Right: No aneurysm, occlusion or significant stenosis. Left: No aneurysm, occlusion or significant stenosis. Basilar Artery: No aneurysm, occlusion or significant stenosis. IMPRESSION: Normal CTA examination of the [place] of [place]. No aneurysm is visible on the current exam. Normal CT of the brain. Exam(s) a MRI:MR angio brain wo SYMPTOMS/DIAGNOSIS: TIA MRA OF THE [place] OF [place]: Routine noncontrast examination was performed. There is patient motion artifact present. The distal internal carotid arteries are unremarkable. No evidence of occlusion, aneurysm or significant stenosis. The anterior cerebral arteries are unremarkable. No evidence of occlusion, aneurysm or significant stenosis. The middle cerebral arteries are unremarkable. No evidence of occlusion, aneurysm or significant stenosis. The posterior cerebral arteries are unremarkable without evidence of occlusion, aneurysm or significant stenosis. The basilar artery is unremarkable without evidence of occlusion, aneurysm or significant stenosis. IMPRESSION: Unremarkable MR Angiography of the brain. HPI General Date/Time Provider Initiated Documentation: 05/11/21 14:46 . HPI Narrative: 50-year-old female with a past medical history of migraines who presents today for evaluation of migraine. Patient states that her headache started this morning at 4 AM. She vomited once or twice earlier today. She did take her Phenergan and Narivio Band and this did not improve her symptoms at all. The patient denies any headache red flags of worst headache of life, thunderclap headache, neck pain, fever, chills, concerning family history of polycystic kidney disease, Marfan syndrome, Elsy-Danlos syndrome, abdominal aortic aneurysm, aortic dissection, or intracranial aneurysm. No other complaints at this time. No visual deficits. Related Data Home Medications Medication Instructions Recorded Confirmed Atrovent HFA 1 puff INHALATION Q8H PRN 12/05/16 05/11/21 albuterol sulfate [Proventil HFA] 2 puff INHALATION PRN PRN 02/15/17 05/11/21 ondansetron HCl [Zofran] 4 mg PO PRN 01/31/18 05/11/21 clonazepam 1 mg PO BID PRN 11/29/18 05/11/21 gabapentin 300 mg PO TID 11/29/18 05/11/21 acetaminophen 1,000 mg PO Q8H PRN #90 tab 11/15/19 05/11/21 venlafaxine 225 mg PO DAILY 11/15/19 05/11/21 promethazine 25 mg PO Q6H PRN #8 tab 12/13/19 05/11/21 topiramate 100 mg tablet 100 mg PO BID 12/26/20 05/11/21 pantoprazole [Protonix] 40 mg PO BID #60 tab 02/09/21 05/11/21 sucralfate [Carafate] 1 g PO QACHS #120 tab 02/09/21 Previous Rx's Medication Instructions Recorded acetaminophen 1,000 mg PO Q8H PRN #90 tab 11/15/19 promethazine 25 mg PO Q6H PRN #8 tab 12/13/19 pantoprazole [Protonix] 40 mg PO BID #60 tab 02/09/21 sucralfate [Carafate] 1 g PO QACHS #120 tab 02/09/21 Allergies Allergy/AdvReac Type Severity Reaction Status Date / Time adhesive Allergy Intermediate gets red Verified 05/11/21 15:11 and welts up codeine Allergy Intermediate Itching Unverified 05/11/21 15:11 oxycodone HCl [From Percocet] Allergy Intermediate Anaphylaxsi Unverified 05/11/21 15:11 s morphine Allergy Itching Verified 05/11/21 15:11 cyclobenzaprine AdvReac Headache Unverified 05/11/21 15:11 [From Flexeril] General Stated Complaint: Headache CRISTI: 3 Review of Systems All systems reviewed & are unremarkable except as noted in HPI and below PFSH Medical History Anxiety treated Arthralgia Asthma Chronic headache Chronic low back pain Chronic pain Cigarette smoker Depression Dyspepsia Family history of colon cancer GERD (gastroesophageal reflux disease) Gross hematuria Hidradenitis suppurativa Hyperthyroidism Intertrigo Left lateral epicondylitis s/p debridement 11/30/18 Lumbar degenerative disc disease Malaise and fatigue Migraine Obese Obstructive sleep apnea No CPAP at this time Postmenopausal bleeding resolved Prediabetes PTSD (post-traumatic stress disorder) Renal cyst Syncope Tear of medial meniscus of left knee Aspiration: 04/09/2019; 02/05/19 Depo-Medrol injection: 04/09/2019; 02/05/19 Tendinitis of both rotator cuffs (06/30/18) Thyroid nodule TIA (transient ischemic attack) 06/15 Tobacco use Vertigo Surgical History Colonoscopy - MAC (02/14/18) EGD - MAC (02/14/18) History of back surgery lower back, 07/2020 History of esophagogastroduodenoscopy (EGD) (~02/09/21) History of total left knee replacement (TKR) (11/14/19) Dr. Brunson Replacement of total knee joint R Rotator Cuff Repair 2x on R, 1 x on L, pt report 2 on the left side S/P left knee arthroscopy partial medial menisectomy and trochlear chondroplasty DOS: 05/17/19 Aspiration/Injection: 06/15/19 Status post left rotator cuff repair DOS: 11/30/2018 Dr. Brunson corticosteroid injection: 02/21/19 Family History Father Rheumatoid arthritis Brother Rheumatoid arthritis Social History Smoking/Tobacco Use Status: Current-Occasional Tobacco Type: cigarettes Tobacco: How many years used: 25 Smoking risk assessment performed?: Yes Alcohol Intake: current Alcohol Intake frequency: holidays/special occasions only Alcohol type: wine Drug use: Occasionally Substance use type: marijuana Details: marijuana : t-1, half of bowl Current gender identity: female Do you feel safe at home: Yes Do you feel safe in your relationship?: Yes Exam Narrative Exam Narrative: 1.Const: Well-nourished, Well-developed, appearing stated age 2.Eyes: PERRL, no conjunctival injection, and symmetrical lids. 3.ENT: Atraumatic external nose and ears. Moist MM. Neck: Symmetric, trachea midline, No thyromegaly. Patient demonstrates good movement of cervical neck. There is no nuchal rigidity, no nuchal tenderness. Patient is able to flex the neck without any difficulty or significant pain. Negative Kernig's and Brudzinski sign. 4.CVS: +S1/S2, No murmurs or gallops. Peripheral pulses 2+ and equal in all extremities. Brisk capillary refill in all extremities. 5.RESP: Unlabored respiratory effort. Clear to auscultation bilaterally. No wheezes rales or rhonchi 6.GI: Soft, Nontender/Nondistended, No hepatosplenomegaly. No guarding or rebound. 7.MSK: Normocephalic/Atraumatic, Extremities w/o deformity or ttp No cyanosis or clubbing, Normal movement of all extremities 8.Skin: Warm, Dry. No rashes or lesions. 9.Neuro: dye room helper II-XII grossly intact. Sensation grossly intact, no focal neurologic deficits. All 6 cardinal planes of vision are fully intact. No evidence of rotatory or vertical nystagmus. The patient demonstrated a normal [id number], good dexterity. There was no evidence of dysdiadochokinesia. Patient was able to ambulate without difficulty. There was no wide-based gait. Romberg testing was normal. Liwu-hx-[id number] testing was normal. Sensation was intact bilaterally as well as muscle strength bilaterally for all extremities. Patient was able to verbalize butter cup with no slurring, or miss pronunciation. 10.Psych: (AAO) x3. Appropriate mood and affect Course Vital Signs Vital signs: Vital Signs Temperature 36.7 C 05/11/21 14:57 Pulse 73 05/11/21 14:57 Respiratory Rate 20 05/11/21 14:57 Blood Pressure 127/91 H 05/11/21 14:57 Pulse Oximetry 98 05/11/21 14:57 Temperature 36.7 C 05/11/21 14:57 Temperature Source Skin 05/11/21 14:57 Pulse 73 05/11/21 14:57 Respiratory Rate 20 05/11/21 14:57 Respiratory Effort 05/11/21 15:48 Blood Pressure 127/91 H 05/11/21 14:57 Blood Pressure Position Sitting 05/11/21 14:57 Pulse Oximetry 98 05/11/21 14:57 Oxygen Delivery Method Room Air 05/11/21 14:57 Oxygen Flow Rate 0 05/11/21 14:57 Pain Level 2 05/11/21 16:03
[2021-05-11 16:49] VITALS: BP 129/78; PULSE 73; RESP 18; O2SAT 98
== END 2021-05-11 16:51 | disposition home or self-care (01) ==
PROVIDERS: Emergency Provider Student in an Organized Health Care Education/Training Program; PCP Nurse Practitioner Family
DX: G43.809 Other migraine, not intractable, without status migrainosus (principal)
CPT/HCPCS: 96361; 96365; 96375; 99284; 99283; J0131; J0780; J1200; J1885; J2930

== ENCOUNTER 2021-05-18 17:50 | Emergency (ER) | payer MEDICARE, MEDICAID, SELFPAY ==
[2021-05-18 17:56] VITALS: BP 156/95; PULSE 101; RESP 20; TEMP 36.9; O2SAT 97
--- NOTE | 2021-05-18 18:24 | ED.GENADUL_ITS ---
Discharge Plan Disposition Patient Disposition: HOME Condition: Good Discharge Details Clinical Impression: Contact dermatitis Primary Care Provider: Lucy Courtney ED Provider: Jojo Joyner Home Meds and New Rx's Prescriptions: New prednisone 20 mg tablet 20 mg PO DAILY Qty: 10 RF: 0 Continued topiramate [Topamax] 100 mg tablet 100 mg PO BID RF: 0 venlafaxine 225 mg Tablet Extended Release 24hr 225 mg PO DAILY RF: 0 acetaminophen 500 mg tablet 1,000 mg PO Q8H PRN (Reason: pain) Qty: 90 RF: 3 Incruse Ellipta 62.5 mcg/actuation blister with device 1 inh INHALATION DAILY RF: 0 ketorolac 30 mg/mL (1 mL) solution 60 mg IM DIRECTED RF: 0 montelukast 10 mg tablet 10 mg PO DAILY RF: 0 benzonatate [Tessalon Perles] 100 mg Capsule 100 mg PO Q8H PRNRF: 0 promethazine 25 mg tablet 25 mg PO Q6H PRN (Reason: nausea and vomiting) RF: 0 albuterol sulfate [Proventil HFA] 200 PUFF HFA aerosol inhaler 2 puff Inhalation PRN PRNRF: 0 clonazepam 1 mg Tablet 1 mg PO QID RF: 0 gabapentin 100 mg Capsule 300 mg PO TID RF: 0 pantoprazole [Protonix] 40 mg tablet,delayed release (DR/EC) 40 mg PO BID Qty: 60 RF: 12 sucralfate [Carafate] 1 gram tablet 1 g PO QACHS Qty: 120 RF: 12 Discharge Instructions Instructions: Dermatitis (ED) Additional Instructions: take prednisone as prescribed return with spreading redness, fever, worsening pain Discharge Data Discharge Date/Time-TO BE ENTERED AT DEPARTURE: 05/18/21 18:36 Medical Decision Making No evidence of cellulitis, papular rash noted, rash consistent with contact dermatitis, no evidence of urticaria Differential Diagnosis Differential Diagnosis: Urticaria, contact dermatitis, atopic dermatitis, cellulitis Medical Records Medical records reviewed: Yes I reviewed the patient's medical records. Lab Data Lab results reviewed: Yes I reviewed the patient's lab results. ECG Data Prior ECG tracings: available for review HPI General Mode of arrival: ambulatory . Date/Time Provider Initiated Documentation: 05/18/21 18:23 . Limitations to Documentation: no limitations . Information obtained by: patient . HPI Narrative: This 50-year-old female with past medical history of anxiety, migraine headache, gastritis presents for report of diffuse rash. Patient states she had exposure to a brown moth. She states that she is experienced before and required prednisone alleviate symptoms. History of diabetes. She denies any difficulty swallowing, chest pain, shortness of breath,. She states she has been using topical hydrocortisone and lidocaine without relief in symptoms. She denies any additional complaints at this time. She describes rash as itchy. She states is predominantly on her anterior and posterior thorax and neck region. Denies chance of . Related Data Home Medications Medication Instructions Recorded Confirmed albuterol sulfate [Proventil HFA] 2 puff INHALATION PRN PRN 02/15/17 05/18/21 clonazepam 1 mg PO QID 11/29/18 05/18/21 gabapentin 300 mg PO TID 11/29/18 05/18/21 acetaminophen 1,000 mg PO Q8H PRN #90 tab 11/15/19 05/18/21 venlafaxine 225 mg PO DAILY 11/15/19 05/18/21 topiramate 100 mg tablet 100 mg PO BID 12/26/20 05/18/21 pantoprazole [Protonix] 40 mg PO BID #60 tab 02/09/21 05/18/21 sucralfate [Carafate] 1 g PO QACHS #120 tab 02/09/21 05/18/21 Incruse Ellipta 1 inh INHALATION DAILY 05/18/21 05/18/21 benzonatate [Tessalon Perles] 100 mg PO Q8H PRN 05/18/21 05/18/21 ketorolac 60 mg IM DIRECTED 05/18/21 05/18/21 montelukast 10 mg PO DAILY 05/18/21 05/18/21 prednisone 20 mg PO DAILY #10 tab 05/18/21 promethazine 25 mg PO Q6H PRN 05/18/21 05/18/21 Previous Rx's Medication Instructions Recorded acetaminophen 1,000 mg PO Q8H PRN #90 tab 11/15/19 pantoprazole [Protonix] 40 mg PO BID #60 tab 02/09/21 sucralfate [Carafate] 1 g PO QACHS #120 tab 02/09/21 prednisone 20 mg PO DAILY #10 tab 05/18/21 Allergies Allergy/AdvReac Type Severity Reaction Status Date / Time adhesive Allergy Intermediate gets red Verified 05/11/21 15:11 and welts up codeine Allergy Intermediate Itching Unverified 05/11/21 15:11 oxycodone HCl [From Percocet] Allergy Intermediate Anaphylaxsi Unverified 05/11/21 15:11 s morphine Allergy Itching Verified 05/11/21 15:11 cyclobenzaprine AdvReac Headache Unverified 05/11/21 15:11 [From Flexeril] General Stated Complaint: RashLesion CRISTI: 4 Review of Systems Narrative: Review of systems obtained x7 aside from where indicated in HPI [facility] Medical History Anxiety treated Arthralgia Asthma Chronic headache Chronic low back pain Chronic pain Cigarette smoker Depression Dyspepsia Family history of colon cancer GERD (gastroesophageal reflux disease) Gross hematuria Hidradenitis suppurativa Hyperthyroidism Intertrigo Left lateral epicondylitis s/p debridement 11/30/18 Lumbar degenerative disc disease Malaise and fatigue Migraine Obese Obstructive sleep apnea No CPAP at this time Postmenopausal bleeding resolved Prediabetes PTSD (post-traumatic stress disorder) Renal cyst Syncope Tear of medial meniscus of left knee Aspiration: 04/09/2019; 02/05/19 Depo-Medrol injection: 04/09/2019; 02/05/19 Tendinitis of both rotator cuffs (06/30/18) Thyroid nodule TIA (transient ischemic attack) 06/15 Tobacco use Vertigo Surgical History Colonoscopy - MAC (02/14/18) EGD - MAC (02/14/18) History of back surgery lower back, 07/2020 History of esophagogastroduodenoscopy (EGD) (~02/09/21) History of total left knee replacement (TKR) (11/14/19) Dr. Brunson Replacement of total knee joint R Rotator Cuff Repair 2x on R, 1 x on L, pt report 2 on the left side S/P left knee arthroscopy partial medial menisectomy and trochlear chondroplasty DOS: 05/17/19 Aspiration/Injection: 06/15/19 Status post left rotator cuff repair DOS: 11/30/2018 Dr. Brunson corticosteroid injection: 02/21/19 Family History Father Rheumatoid arthritis Brother Rheumatoid arthritis Social History Smoking/Tobacco Use Status: Current-Occasional Tobacco Type: cigarettes Tobacco: How many years used: 25 Smoking risk assessment performed?: Yes Alcohol Intake: current Alcohol Intake frequency: holidays/special occasions only Alcohol type: wine Drug use: Occasionally Substance use type: marijuana Details: marijuana : t-1, half of bowl Current gender identity: female Do you feel safe at home: Yes Do you feel safe in your relationship?: Yes Exam Const General: cooperative and no acute distress HENMT Other: Uvula midline, oropharynx patent Resp Effort & Inspection: normal respiratory effort Skin Other: Contact dermatitis with papules noted to anterior and posterior thorax and posterior cervical region Course Vital Signs Vital signs: Vital Signs Temperature 36.9 C 05/18/21 17:56 Pulse 101 H 05/18/21 17:56 Respiratory Rate 20 05/18/21 17:56 Blood Pressure 156/95 H 05/18/21 17:56 Pulse Oximetry 97 05/18/21 17:56 Temperature 36.9 C 05/18/21 17:56 Temperature Source Skin 05/18/21 17:56 Pulse 101 H 05/18/21 17:56 Respiratory Rate 20 05/18/21 17:56 Respiratory Effort 05/18/21 18:02 Blood Pressure 156/95 H 05/18/21 17:56 Blood Pressure Position Supine 05/18/21 17:56 Pulse Oximetry 97 05/18/21 17:56 Oxygen Delivery Method Room Air 05/18/21 17:56 Oxygen Flow Rate 0 05/18/21 17:56 Pain Level 10 05/18/21 17:56
== END 2021-05-18 18:36 | disposition home or self-care (01) ==
PROVIDERS: Emergency Provider Physician Assistant; PCP Nurse Practitioner Family
DX: L25.8 Unspecified contact dermatitis due to other agents (principal)
CPT/HCPCS: 99283

== ENCOUNTER 2021-06-11 22:46 | Emergency (ER) | payer MEDICARE, MEDICAID, SELFPAY | END 2021-06-12 00:20 | PROVIDERS: Emergency Provider Emergency Medicine; PCP Nurse Practitioner Family | DX: G43.809 Other migraine, not intractable, without status migrainosus (principal) | CPT/HCPCS: 96361; 96374; 96375; 99284 ==

== ENCOUNTER 2021-07-03 04:32 | Outpatient (CLI) | payer MEDICARE, MEDICAID, SELFPAY ==
--- NOTE | 2021-07-03 | DI.MRI_ITS ---
Exam(s) MR LUMBAR SPINE WO EXAM: MR LUMBAR SPINE WO CLINICAL HISTORY: LOW BACK PAIN, M54.5,HERNIATED NUCLEUS PULPOSUS, M53.80. TECHNIQUE: Multiplanar multisequence MRI was performed. COMPARISON: MR MR LUMBAR SPINE WO from 06/11/2020 FINDINGS: Lumbosacral spine MRI was performed according to the usual protocol. On prior CT lumbar spine MRI of June 11, 2020, there was a large predominantly left-sided lobulated disc herniation. On today's exa mination there are findings suggesting prior left laminectomy. There is decreased prominence of the disc herniation, however there does appear to be persistent deformity of the thecal sac associated wi th persistent or recurrent disc herniation at this site. Additional evaluation with pre and post con trast T1 fat sat imaging suggested to evaluate recurrent disc herniation versus postsurgical scarring . No disc herniation identified elsewhere in the lumbar spine. No significant bony signal abnormality seen. Conus medullaris appears intact. No bony central canal spinal stenosis or neural foraminal st enosis seen. Note is made of bilateral renal cysts. IMPRESSION: Interval decrease in prominence of previously described left-sided disc herniation. However there ma y be recurrent or persistent disc herniation at this site. Pre and post contrast T1 fat sat imaging recommended to attempt to differentiate recurrent disc herniation versus postsurgical scarring. DATA REPOSITORY:
== END 2021-07-03 04:52 ==
PROVIDERS: PCP Nurse Practitioner Family; Visit Provider Family Medicine
DX: M51.26 Other intervertebral disc displacement, lumbar region (principal)
CPT/HCPCS: 72148

== ENCOUNTER 2021-08-26 13:22 | Emergency (ER) | payer MEDICARE, MEDICAID, SELFPAY ==
[2021-08-26 13:40] VITALS: BP 156/100; PULSE 80; RESP 16; TEMP 36.5; O2SAT 97
--- NOTE | 2021-08-26 14:30 | DI.CT_ITS ---
Exam(s) CT HEAD SINUS WO EXAM: CT HEAD SINUS WO CLINICAL HISTORY: Left sided headache sinus pain. TECHNIQUE: Imaging Protocol: Axial computed tomography images with coronal and sagittal reformatted images were created and reviewed COMPARISON: CT CT BRAIN CTA from 12/23/2020 FINDINGS: BRAIN: There are no skull fractures nor fluid in the visualized paranasal sinuses. There is no evidence of intracranial hemorrhage, mass effect, or shift of midline structures. There are no extra-axial fluid collections. The ventricles are not enlarged or shifted and there is no blo od within the ventricular system nor within the basal cisterns. PARANASAL SINUSES: There is no evidence of mucosal thickening nor fluid in paranasal sinuses and mastoid air cells. The ostiomeatal units are patent bilaterally. There is right-sided nasal septal spur but no occlusi on of the nasal passages. No significant alexander bullosa. Incidentally noted is evidence of nasal fracture, possibly not acute. IMPRESSION: No acute intracranial findings on this noninfused CT scan of the brain. Paranasal sinuses are clear. No mucosal thickening and no fluid levels therein. Ostiomeatal units a re patent bilaterally. RADIATION DOSE DELIVERED: 789.98mGy.cm Total DLP DATA REPOSITORY: All CT scans at this facility are submitted to the National Radiology Data Registry (NRDR) Dose Index Registry (DIR) with the [employer] ([employer]). RADIATION OPTIMIZATION: All CT scans at this facility use at least one of these dose optimization te chniques: automated exposure control; mA and/or kV adjustment per patient size (includes targeted exa ms where dose is matched to clinical indication); or iterative reconstruction.
--- NOTE | 2021-08-26 14:31 | W.ED.GENAD ---
Discharge Plan Disposition Patient Disposition: HOME Condition: Improving Discharge Details Clinical Impression: Headache Primary Care Provider: Lucy Courtney ED Provider: Tamanna Lemus Home Meds and New Rx's Prescriptions: Continued topiramate [Topamax] 100 mg tablet 100 mg PO BID RF: 0 venlafaxine 225 mg Tablet Extended Release 24hr 225 mg PO DAILY RF: 0 acetaminophen 500 mg tablet 1,000 mg PO Q8H PRN (Reason: pain) Qty: 90 RF: 3 Incruse Ellipta 62.5 mcg/actuation blister with device 1 inh INHALATION DAILY RF: 0 ketorolac 30 mg/mL (1 mL) solution 60 mg IM DIRECTED RF: 0 montelukast 10 mg tablet 10 mg PO DAILY RF: 0 albuterol sulfate [Proventil HFA] 200 PUFF HFA aerosol inhaler 2 puff Inhalation PRN PRNRF: 0 clonazepam 1 mg Tablet 1 mg PO QID RF: 0 gabapentin 100 mg Capsule 300 mg PO TID RF: 0 pantoprazole [Protonix] 40 mg tablet,delayed release (DR/EC) 40 mg PO BID Qty: 60 RF: 12 Discharge Instructions Instructions: General Headache (ED) Additional Instructions: Please continue to take the Topamax and your medications as prescribed. May take 1 or 2 tablets of Benadryl every 6-8 hours as needed. Please take Tylenol or Ibuprofen with food every 4-6 hours as needed for pain and swelling. Follow up with primary care provider in 3-5 days. Return to ED sooner if any worsening or concerns. Increase oral fluids. Referrals: Lucy Courtney [Primary Care Provider] - 3 days Discharge Data Discharge Date/Time-TO BE ENTERED AT DEPARTURE: 08/26/21 16:13 Medical Decision Making 51-year-old female presents to the ER chief complaint of left-sided headache and facial pain which has been worsening since approximately 1 AM this morning. She reports 10 out of 10. She did take Phenergan injection prior to to call a TENS unit treatment which did little to nothing to help her pain. She does have a history of migraines. Takes topiramate, gabapentin, clonazepam and Tylenol. She last had a head in November 2020. She has no focal neuro deficits noted on exam. She does endorse photosensitivity and sensitivity to sound. She does have some left-sided frontal and maxillary sinus tenderness with palpation. At this time CT head and sinuses ordered, 1 L normal saline Compazine and Benadryl. FINDINGS: BRAIN: There are no skull fractures nor fluid in the visualized paranasal sinuses. There is no evidence of intracranial hemorrhage, mass effect, or shift of midline structures. There are no extra-axial fluid collections. The ventricles are not enlarged or shifted and there is no blood within the ventricular system nor within the basal cisterns. PARANASAL SINUSES: There is no evidence of mucosal thickening nor fluid in paranasal sinuses and mastoid air cells. The ostiomeatal units are patent bilaterally. There is right-sided nasal septal spur but no occlusion of the nasal passages. No significant alexander bullosa. Incidentally noted is evidence of nasal fracture, possibly not acute. IMPRESSION: No acute intracranial findings on this noninfused CT scan of the brain. Paranasal sinuses are clear. No mucosal thickening and no fluid levels therein. Ostiomeatal units are patent bilaterally. 1538: Patient reevaluation she is sleeping but still complaining of headache. Discussed CT results with her who verbalizes understanding. Will order 30 mg Toradol IV at this time. Patient had her arm bent fluids were not infusing. I did discuss having her arm open to have the fluids infused Patient feeling improved after Toradol. To follow-up with primary care provider. Did discuss strict return instructions and red flags, verbalized understanding. This text was generated using [employer] dictation system, please disregard any oddities of phrase or misspellings. HPI General Mode of arrival: ambulatory. Date/Time Provider Initiated Documentation: 08/26/21 13:47. Limitations to Documentation: no limitations. Information obtained by: patient, RN notes reviewed and old records reviewed. HPI Narrative: 51-year-old female presents to the ER chief complaint of left-sided headache and facial pain which has been worsening since approximately 1 AM this morning. She reports 10 out of 10. She did take Phenergan injection prior to to call a TENS unit treatment which did little to nothing to help her pain. She does have a history of migraines. Takes topiramate, gabapentin, clonazepam and Tylenol. She last had a head in November 2020. She has no focal neuro deficits noted on exam. She does endorse photosensitivity and sensitivity to sound. She does have some left-sided frontal and maxillary sinus tenderness with palpation. Related Data Home Medications Medication Instructions Recorded Confirmed albuterol sulfate [Proventil HFA] 2 puff INHALATION PRN PRN 02/15/17 08/26/21 clonazepam 1 mg PO QID 11/29/18 08/26/21 gabapentin 300 mg PO TID 11/29/18 08/26/21 acetaminophen 1,000 mg PO Q8H PRN #90 tab 11/15/19 08/26/21 venlafaxine 225 mg PO DAILY 11/15/19 08/26/21 topiramate 100 mg tablet 100 mg PO BID 12/26/20 08/26/21 pantoprazole [Protonix] 40 mg PO BID #60 tab 02/09/21 08/26/21 Incruse Ellipta 1 inh INHALATION DAILY 05/18/21 08/26/21 ketorolac 60 mg IM DIRECTED 05/18/21 08/26/21 montelukast 10 mg PO DAILY 05/18/21 08/26/21 Previous Rx's Medication Instructions Recorded acetaminophen 1,000 mg PO Q8H PRN #90 tab 11/15/19 pantoprazole [Protonix] 40 mg PO BID #60 tab 02/09/21 Allergies Allergy/AdvReac Type Severity Reaction Status Date / Time adhesive Allergy Intermediate gets red Verified 08/26/21 13:46 and welts up codeine Allergy Intermediate Itching Unverified 08/26/21 13:46 oxycodone HCl [From Percocet] Allergy Intermediate Anaphylaxsi Unverified 08/26/21 13:46 s morphine Allergy Itching Verified 08/26/21 13:46 cyclobenzaprine AdvReac Headache Unverified 08/26/21 13:46 [From Flexeril] General Stated Complaint: Headache CRISTI: 3 Review of Systems Narrative: Constitutional: Negative for weight loss, alert and oriented, well groomed, obese body habitus, appears comfortable. HEENT: Denies trauma, blurry vision, nasal discharge, sore throat, trouble swallowing. Positive ascites headache. Positive photosensitivity 2-3 sound. Chest: Denies chest pain, palpitations, irregular rhythm, hypertension. Respiratory: Denies Shortness of breath, cough, hemoptysis. GI: Denies abdominal pain,diarrhea, constipation. Positive nausea vomiting. : Denies dysuria, hematuria, flank pain, rectal bleeding. Neuro: Denies dizziness, blurry vision, weakness, syncope, or facial numbness. Hematologic: Denies easy bruising, intolerance to heat or cold, hair loss. FOR[facility]LY [facility], [facility] Medical History Anxiety treated Arthralgia Asthma Chronic headache Chronic low back pain Chronic pain Cigarette smoker Depression Dyspepsia Family history of colon cancer GERD (gastroesophageal reflux disease) Gross hematuria Hidradenitis suppurativa Hyperthyroidism Intertrigo Left lateral epicondylitis s/p debridement 11/30/18 Lumbar degenerative disc disease Malaise and fatigue Migraine Obese Obstructive sleep apnea No CPAP at this time Postmenopausal bleeding resolved Prediabetes PTSD (post-traumatic stress disorder) Renal cyst Syncope Tear of medial meniscus of left knee Aspiration: 04/09/2019; 02/05/19 Depo-Medrol injection: 04/09/2019; 02/05/19 Tendinitis of both rotator cuffs (06/30/18) Thyroid nodule TIA (transient ischemic attack) 06/15 Tobacco use Vertigo Surgical History Colonoscopy - MAC (02/14/18) EGD - MAC (02/14/18) History of back surgery lower back, 07/2020 History of esophagogastroduodenoscopy (EGD) (~02/09/21) History of total left knee replacement (TKR) (11/14/19) Dr. Brunson Replacement of total knee joint R Rotator Cuff Repair 2x on R, 1 x on L, pt report 2 on the left side S/P left knee arthroscopy partial medial menisectomy and trochlear chondroplasty DOS: 05/17/19 Aspiration/Injection: 06/15/19 Status post left rotator cuff repair DOS: 11/30/2018 Dr. Brunson corticosteroid injection: 02/21/19 Family History Father Rheumatoid arthritis Brother Rheumatoid arthritis Social History Smoking/Tobacco Use Status: Current-Occasional Tobacco Type: cigarettes Tobacco: How many years used: 25 Smoking risk assessment performed?: Yes Alcohol Intake: current Alcohol Intake frequency: holidays/special occasions only Alcohol type: wine Drug use: Occasionally Substance use type: marijuana Current gender identity: female Do you feel safe at home: Yes Do you feel safe in your relationship?: Yes Exam Narrative Exam Narrative: Constitutional: Alert and oriented x3. Appears stated age. Normal body habitus. Head: Normocephalic, no trauma. Eyes: Pupils PERRLA, Red reflex noted, EOM's intact. Eyelids symmetrical without lesions, discharge, or swelling. ENT: Bilateral TM's WNL, External ear normal to inspection, no mastoid TTP, swelling, or erythema, Nasal turbinates WNL, no nasal discharge. Normal dentition, Posterior pharynx WNL, no exudate. Chest: RRR, Normal S1, S2, distal pulses intact. Resp: Lungs clear to auscultation bilaterally, no wheezes, rales, or rhonchi. Musculoskeletal: Normal gait, 5/5 strength to all four extremities. Skin: No suspicious rashes or lesions. Capillary refill less than 2 sec. Neurologic: Cranial nerves II-XII intact. Alert and oriented x 3. Moves all extremities. No focal neuro deficits. Hematologic/Lymphatic: No ecchymosis, no lymphadenopathy. Course Vital Signs Vital signs: Vital Signs Temperature 36.5 C 08/26/21 13:40 Pulse 80 08/26/21 13:40 Respiratory Rate 16 08/26/21 13:40 Blood Pressure 156/100 H 08/26/21 13:40 Pulse Oximetry 97 08/26/21 13:40 Temperature 36.5 C 08/26/21 13:40 Temperature Source Tympanic 08/26/21 13:40 Pulse 80 08/26/21 13:40 Respiratory Rate 16 08/26/21 13:40 Respiratory Effort Non-Labored 08/26/21 13:45 Blood Pressure 156/100 H 08/26/21 13:40 Blood Pressure Position Sitting 08/26/21 13:40 Pulse Oximetry 97 08/26/21 13:40 Oxygen Delivery Method Room Air 08/26/21 13:40 Oxygen Flow Rate 0 08/26/21 13:40 Pain Level 10 08/26/21 14:07 PAWSS Pt Consumed Any Amount of Alcohol Within the Last 30 days OR had positive ELI Upon Admission: No
[2021-08-26] MEDS: Normal Saline Flush 10 ML SYR IVP (14:46)
[2021-08-26] MEDS: diphenhydrAMINE 50 MG/ML VIAL 25 MG IVP (14:46)
[2021-08-26] MEDS: Normal Saline 1,000 ML 1000 ML IV (14:46)
[2021-08-26] MEDS: Prochlorperazine 10 MG/2 ML VIAL 5 MG IVP (14:47)
[2021-08-26] MEDS: Ketorolac 30 MG/ML VIAL IVP (15:54)
[2021-08-26 15:59] VITALS: BP 113/79; PULSE 81; TEMP 36.5; O2SAT 96
[2021-08-26 16:11] VITALS: BP 113/79; PULSE 81; TEMP 36.5; O2SAT 96
== END 2021-08-26 16:13 | disposition home or self-care (01) ==
PROVIDERS: Emergency Provider Registered Nurse Emergency; PCP Nurse Practitioner Family
DX: R51.9 Headache, unspecified (principal); H53.143 Visual discomfort, bilateral
CPT/HCPCS: 96361; 96374; 96375; 99284; 70450; 70486; J0780; J1200; J1885

== ENCOUNTER 2021-08-29 18:12 | Emergency (ER) | payer MEDICARE, MEDICAID, SELFPAY ==
[2021-08-29 18:18] VITALS: BP 102/77; PULSE 109; RESP 16; TEMP 36.5; O2SAT 95
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
== END 2021-08-29 20:25 | disposition home or self-care (01) ==
PROVIDERS: Emergency Provider Physician Assistant; PCP Nurse Practitioner Family
DX: S61.411A Laceration without foreign body of right hand, initial encounter (principal); W20.8XXA Other cause of strike by thrown, projected or falling object, initial encounter
CPT/HCPCS: 99283; 73130; 99282

== ENCOUNTER 2021-09-10 15:37 | Emergency (ER) | payer MEDICARE, MEDICAID, SELFPAY ==
--- NOTE | 2021-09-10 15:38 | ED.GENADUL_ITS ---
Discharge Plan Disposition Patient Disposition: HOME Condition: Stable Discharge Details Clinical Impression: Visit for suture removal, Cellulitis of finger Primary Care Provider: Lucy Courtney ED Provider: Henna Barlow Home Meds and New Rx's Prescriptions: New cephalexin 500 mg tablet 500 mg PO QID Qty: 20 RF: 0 Continued topiramate [Topamax] 100 mg tablet 100 mg PO BID RF: 0 venlafaxine 225 mg Tablet Extended Release 24hr 225 mg PO DAILY RF: 0 acetaminophen 500 mg tablet 1,000 mg PO Q8H PRN (Reason: pain) Qty: 90 RF: 3 Incruse Ellipta 62.5 mcg/actuation blister with device 1 inh INHALATION DAILY RF: 0 ketorolac 30 mg/mL (1 mL) solution 60 mg IM DIRECTED RF: 0 montelukast 10 mg tablet 10 mg PO DAILY RF: 0 albuterol sulfate [Proventil HFA] 200 PUFF HFA aerosol inhaler 2 puff Inhalation PRN PRNRF: 0 clonazepam 1 mg Tablet 1 mg PO QID RF: 0 gabapentin 100 mg Capsule 300 mg PO TID RF: 0 pantoprazole [Protonix] 40 mg tablet,delayed release (DR/EC) 40 mg PO BID Qty: 60 RF: 12 Discharge Instructions Instructions: Cellulitis (ED) Additional Instructions: take antibiotic as prescribed even if you feel better elevate above heart to keep swelling down return if redness not improving in 36-48 hours or significantly worsening Referrals: Lucy Courtney [Primary Care Provider] - Discharge Data Discharge Date/Time-TO BE ENTERED AT DEPARTURE: 09/10/21 15:55 Medical Decision Making 3 sutures removed by nursing with no difficulty. small amount of erythema surrounding the incision site. area is approximated and scabbed over. will treat with cephalexin. Medical Records Medical records reviewed: Yes I reviewed the patient's medical records. HPI General Mode of arrival: ambulatory . Limitations to Documentation: no limitations . Information obtained by: patient . HPI Narrative: here for suture removal, no issues ,or fever. small amount of erythema surrounding laceration and sutures. 3 sutures intact Related Data Home Medications Medication Instructions Recorded Confirmed albuterol sulfate [Proventil HFA] 2 puff INHALATION PRN PRN 02/15/17 08/29/21 clonazepam 1 mg PO QID 11/29/18 08/29/21 gabapentin 300 mg PO TID 11/29/18 08/29/21 acetaminophen 1,000 mg PO Q8H PRN #90 tab 11/15/19 08/29/21 venlafaxine 225 mg PO DAILY 11/15/19 08/29/21 topiramate 100 mg tablet 100 mg PO BID 12/26/20 08/29/21 pantoprazole [Protonix] 40 mg PO BID #60 tab 02/09/21 08/29/21 Incruse Ellipta 1 inh INHALATION DAILY 05/18/21 08/29/21 ketorolac 60 mg IM DIRECTED 05/18/21 08/29/21 montelukast 10 mg PO DAILY 05/18/21 08/29/21 cephalexin 500 mg PO QID #20 tab 09/10/21 Previous Rx's Medication Instructions Recorded acetaminophen 1,000 mg PO Q8H PRN #90 tab 11/15/19 pantoprazole [Protonix] 40 mg PO BID #60 tab 02/09/21 cephalexin 500 mg PO QID #20 tab 09/10/21 Allergies Allergy/AdvReac Type Severity Reaction Status Date / Time adhesive Allergy Intermediate gets red Verified 08/29/21 18:24 and welts up codeine Allergy Intermediate Itching Unverified 08/29/21 18:24 oxycodone HCl [From Percocet] Allergy Intermediate Anaphylaxsi Unverified 08/29/21 18:24 s morphine Allergy Itching Verified 08/29/21 18:24 cyclobenzaprine AdvReac Headache Unverified 08/29/21 18:24 [From Flexeril] General CRISTI: 4 Review of Systems All systems reviewed & are unremarkable except as noted in HPI and below Constitutional Constitutional: Denies fever(s) Integumentary/Breasts Skin/Breast: Reports rash PFSH Medical History Anxiety treated Arthralgia Asthma Chronic headache Chronic low back pain Chronic pain Cigarette smoker Depression Dyspepsia Family history of colon cancer GERD (gastroesophageal reflux disease) Gross hematuria Hidradenitis suppurativa Hyperthyroidism Intertrigo Left lateral epicondylitis s/p debridement 11/30/18 Lumbar degenerative disc disease Malaise and fatigue Migraine Obese Obstructive sleep apnea No CPAP at this time Postmenopausal bleeding resolved Prediabetes PTSD (post-traumatic stress disorder) Renal cyst Syncope Tear of medial meniscus of left knee Aspiration: 04/09/2019; 02/05/19 Depo-Medrol injection: 04/09/2019; 02/05/19 Tendinitis of both rotator cuffs (06/30/18) Thyroid nodule TIA (transient ischemic attack) 06/15 Tobacco use Vertigo Surgical History Colonoscopy - MAC (02/14/18) EGD - MAC (02/14/18) History of back surgery lower back, 07/2020 History of esophagogastroduodenoscopy (EGD) (~02/09/21) History of total left knee replacement (TKR) (11/14/19) Dr. Brunson Replacement of total knee joint R Rotator Cuff Repair 2x on R, 1 x on L, pt report 2 on the left side S/P left knee arthroscopy partial medial menisectomy and trochlear chondroplasty DOS: 05/17/19 Aspiration/Injection: 06/15/19 Status post left rotator cuff repair DOS: 11/30/2018 Dr. Brunson corticosteroid injection: 02/21/19 Family History Father Rheumatoid arthritis Brother Rheumatoid arthritis Social History Smoking/Tobacco Use Status: Current-Occasional Tobacco Type: cigarettes Tobacco: How many years used: 25 Smoking risk assessment performed?: Yes Alcohol Intake: current Alcohol Intake frequency: holidays/special occasions only Alcohol type: other Drug use: Occasionally Substance use type: marijuana Current gender identity: female Do you feel safe at home: Yes Do you feel safe in your relationship?: Yes Exam Const General: cooperative, healthy appearing, comfortable and no acute distress Nutritional Appearance: overweight HENMT Head: normal to inspection, normocephalic and atraumatic Skin Trauma: laceration (healed, 3 sutures intact and removed by nursing erythema surrounding 1/2 cm) Extrem General: edema
[2021-09-10 15:40] VITALS: BP 114/76; PULSE 118; RESP 16; TEMP 37.2; O2SAT 97
== END 2021-09-10 15:55 | disposition home or self-care (01) ==
PROVIDERS: Emergency Provider Nurse Practitioner Acute Care; PCP Nurse Practitioner Family
DX: S61.211D Laceration without foreign body of left index finger without damage to nail, subsequent encounter (principal); L03.012 Cellulitis of left finger; X58.XXXD Exposure to other specified factors, subsequent encounter; Z48.02 Encounter for removal of sutures
CPT/HCPCS: 99283

== ENCOUNTER 2021-09-22 15:15 | Outpatient (REF) | payer MEDICARE, MEDICAID, SELFPAY ==
[2021-09-23 15:46] LABS: COVID-19 RT-PCR UVMMC Result Negative (Negative)
== END 2021-09-22 15:16 | disposition home or self-care (01) ==
LOC: LBN 15:15
PROVIDERS: PCP Nurse Practitioner Family; Visit Provider Physician Assistant Medical
DX: Z20.822 Contact with and (suspected) exposure to COVID-19 (principal); J06.9 Acute upper respiratory infection, unspecified
CPT/HCPCS: U0003

== ENCOUNTER 2021-09-27 00:19 | Emergency (ER) | payer MEDICARE, MEDICAID, SELFPAY ==
--- NOTE | 2021-09-27 00:24 | ED.GENADUL_ITS ---
Discharge Plan Disposition Patient Disposition: HOME Condition: Good Discharge Details Clinical Impression: COPD (chronic obstructive pulmonary disease) with acute bronchitis Primary Care Provider: Lucy Courtney ED Provider: aRmon Navarro [place] Meds and New Rx's Prescriptions: New benzonatate 100 mg Capsule 100 mg PO TID PRN (Reason: cough) Qty: 15 RF: 0 azithromycin 250 mg tablet 250 mg PO DAILY 4 Days Qty: 4 RF: 0 Continued topiramate [Topamax] 100 mg tablet 100 mg PO BID RF: 0 venlafaxine 225 mg Tablet Extended Release 24hr 225 mg PO DAILY RF: 0 acetaminophen 500 mg tablet 1,000 mg PO Q8H PRN (Reason: pain) Qty: 90 RF: 3 Incruse Ellipta 62.5 mcg/actuation blister with device 1 inh INHALATION DAILY RF: 0 ketorolac 30 mg/mL (1 mL) solution 60 mg IM DIRECTED RF: 0 montelukast 10 mg tablet 10 mg PO DAILY RF: 0 albuterol sulfate [Proventil HFA] 200 PUFF HFA aerosol inhaler 2 puff Inhalation PRN PRNRF: 0 clonazepam 1 mg Tablet 1 mg PO QID RF: 0 gabapentin 100 mg Capsule 400 mg PO TID RF: 0 pantoprazole [Protonix] 40 mg tablet,delayed release (DR/EC) 40 mg PO BID Qty: 60 RF: 12 Discharge Instructions Additional Instructions: Continue use of your inhalers. We will place you on a course of antibiotic. Benzonatate for cough. Stay hydrated. Follow-up with primary care this week f or recheck. Return to ED for increasing difficulty breathing, chest pain, mental status change, other concerns. Referrals: Lucy Courtney [Primary Care Provider] - Medical Decision Making Patient is a lifelong smoker on various inhalers and so presumed to have COPD. Continues to have cough with increased production of thick purulent sputum. She feels more short of breath than baseline. She has already completed a course of steroids and continues her inhalers. Vital signs are good with no tachycardia or hypoxemia. She is afebrile. She tested negative for Covid. Lungs are clear but diminished. At this point would start her on antibiotic and will choose a macrolide given no recent respiratory problems/hospitalizations, concern for Pseudomonas. We will also prescribe Tessalon to help with the cough. Encouraged to follow-up with primary care this week for recheck. Return to emergency department for increasing shortness of breath, chest pain, mental status changes, other concerns. HPI General Mode of arrival: ambulatory . Date/Time Provider Initiated Documentation: 09/27/21 00:21 . Limitations to Documentation: no limitations . Information obtained by: patient, RN notes reviewed and old records reviewed . HPI Narrative: Patient presents to the ED with persistent cough for over 3 weeks now. She was seen in urgent care Tuesday of this week. She has finished a course of prednisone. She continues to use her inhalers including her rescue inhaler. She is having difficulty breathing and chest pain when she has coughing spasms. She has increased sputum production that she describes as thick yellowish with occasional blood-tinged. Sometimes she coughs so much she would vomit. She has been a smoker since her teenage years. She has not been able to smoke much in the last week because of cough. She denies having fever, headache, nasal congestion, earache, sore throat. She did have Covid testing done which is come back negative. She is fully immunized against Covid. She is unable to sleep despite taking multiple different dehu-uid-eamybhd medications for cough. She feels that she is more short of breath than usual. Related Data Home Medications Medication Instructions Recorded Confirmed albuterol sulfate [Proventil HFA] 2 puff INHALATION PRN PRN 02/15/17 09/27/21 clonazepam 1 mg PO QID 11/29/18 09/27/21 gabapentin 400 mg PO TID 11/29/18 09/27/21 acetaminophen 1,000 mg PO Q8H PRN #90 tab 11/15/19 09/27/21 venlafaxine 225 mg PO DAILY 11/15/19 09/27/21 topiramate 100 mg tablet 100 mg PO BID 12/26/20 09/27/21 pantoprazole [Protonix] 40 mg PO BID #60 tab 02/09/21 09/27/21 Incruse Ellipta 1 inh INHALATION DAILY 05/18/21 09/27/21 ketorolac 60 mg IM DIRECTED 05/18/21 09/27/21 montelukast 10 mg PO DAILY 05/18/21 09/27/21 azithromycin 250 mg PO DAILY 4 Days #4 tab 09/27/21 benzonatate 100 mg PO TID PRN #15 cap 09/27/21 Previous Rx's Medication Instructions Recorded acetaminophen 1,000 mg PO Q8H PRN #90 tab 11/15/19 pantoprazole [Protonix] 40 mg PO BID #60 tab 02/09/21 azithromycin 250 mg PO DAILY 4 Days #4 tab 09/27/21 benzonatate 100 mg PO TID PRN #15 cap 09/27/21 Allergies Allergy/AdvReac Type Severity Reaction Status Date / Time adhesive Allergy Intermediate gets red Verified 09/27/21 00:28 and welts up codeine Allergy Intermediate Itching Unverified 09/27/21 00:28 oxycodone HCl [From Percocet] Allergy Intermediate Anaphylaxsi Unverified 09/27/21 00:28 s morphine Allergy Itching Verified 09/27/21 00:28 cyclobenzaprine AdvReac Headache Unverified 09/27/21 00:28 [From Flexeril] General CRISTI: 5 Review of Systems Narrative: As documented in HPI otherwise negative as below. Const: no fever, chills, weakness Resp: no pleuritic pain CV: no diaphoresis, edema, syncope GI: no abdominal pain, nausea, diarrhea Neuro: no headache, numbness, focal weakness, confusion PFSH Medical History Anxiety treated Arthralgia Asthma Chronic headache Chronic low back pain Chronic pain Cigarette smoker Depression Dyspepsia Family history of colon cancer GERD (gastroesophageal reflux disease) Gross hematuria Hidradenitis suppurativa Hyperthyroidism Intertrigo Left lateral epicondylitis s/p debridement 11/30/18 Lumbar degenerative disc disease Malaise and fatigue Migraine Obese Obstructive sleep apnea No CPAP at this time Postmenopausal bleeding resolved Prediabetes PTSD (post-traumatic stress disorder) Renal cyst Syncope Tear of medial meniscus of left knee Aspiration: 04/09/2019; 02/05/19 Depo-Medrol injection: 04/09/2019; 02/05/19 Tendinitis of both rotator cuffs (06/30/18) Thyroid nodule TIA (transient ischemic attack) 06/15 Tobacco use Vertigo Surgical History Colonoscopy - MAC (02/14/18) EGD - MAC (02/14/18) History of back surgery lower back, 07/2020 History of esophagogastroduodenoscopy (EGD) (~02/09/21) History of total left knee replacement (TKR) (11/14/19) Dr. Brunson Replacement of total knee joint R Rotator Cuff Repair 2x on R, 1 x on L, pt report 2 on the left side S/P left knee arthroscopy partial medial menisectomy and trochlear chondroplasty DOS: 05/17/19 Aspiration/Injection: 06/15/19 Status post left rotator cuff repair DOS: 11/30/2018 Dr. Brunson corticosteroid injection: 02/21/19 Family History Father Rheumatoid arthritis Brother Rheumatoid arthritis Social History Smoking/Tobacco Use Status: Current-Occasional Tobacco Type: cigarettes Tobacco: How many years used: 25 Smoking risk assessment performed?: Yes Alcohol Intake: current Alcohol Intake frequency: holidays/special occasions only Alcohol type: other Drug use: Occasionally Substance use type: marijuana Current gender identity: female Do you feel safe at home: Yes Do you feel safe in your relationship?: Yes Exam Narrative Exam Narrative: Const: Obese female in NAD. HEENT: NC/AT. Normal facial exam. Eyes: Normal conjunctiva and sclera. Neck: Supple. Trachea midline. Lungs: Normal respiratory effort. Lungs are clear though a little diminished throughout. No wheeze, rhonchi or rales. Cor: RRR without murmur/gallop. Good radial pulses. Neuro: A+O x 3. Normal speech, mentation, gait. Cranial nerves II - XII grossly intact. No gross motor or sensory deficit. Ext: No C/C/E. Skin: Warm and dry without rash.
[2021-09-27 00:25] VITALS: BP 148/98; PULSE 82; RESP 21; TEMP 36.2; O2SAT 98
[2021-09-27] MEDS: Azithromycin 250 MG TAB 500 MG PO (00:56)
[2021-09-27] MEDS: Benzonatate 100 MG CAP PO (00:57)
== END 2021-09-27 01:12 | disposition home or self-care (01) ==
PROVIDERS: Emergency Provider Emergency Medicine; PCP Nurse Practitioner Family
DX: J44.0 Chronic obstructive pulmonary disease with (acute) lower respiratory infection (principal); J20.9 Acute bronchitis, unspecified; F17.210 Nicotine dependence, cigarettes, uncomplicated
CPT/HCPCS: 99283

== ENCOUNTER 2021-11-23 03:03 | Outpatient (CLI) | payer MEDICARE, MEDICAID, SELFPAY ==
--- NOTE | 2021-11-23 11:30 | DI.MAMMO_ITS ---
Exam(s) MAMMO SCREENING EXAM: MAMMO SCREENING CLINICAL HISTORY: SCREENING, FAMILY H/O BREAST CA, Z80.3. TECHNIQUE: Bilateral full field digital CC and MLO mammographic images were obtained with 3D tomosyn thesis and utilizing computer aided detection (CAD). COMPARISON: Prior mammograms dating back to 2012, the most recent being April 2020. FINDINGS: In the left breast on 3D cc imaging there is a noncalcified well-defined nodule measuring 4 x 3 [place] meters located 6 cm in from the nipple. This is unchanged and has appearance of a probable benign in tramammary lymph node. In the right breast on 3D MLO imaging there is a 4 x 3 millimeter asymmetric density slightly low med ial of center located 11 cm in from the nipple. This is unchanged and has appearance of a probable benign intramammary lymph node. There are no new spiculated masses nor malignant-appearing microcalcification groups in either breast . There is no significant architectural distortion nor skin thickening-retraction. IMPRESSION: Two benign findings. No radiographic evidence of malignancy. BI-RADS Category 2 - Benign Findings Breast Density - Category B - Scattered areas of fibroglandular density Breast density Category C or D implies that the patient has dense breast tissue. Dense breast tissue can make it harder to find cancer on a mammogram. Dense breast tissue is also associated with an incr eased risk of breast cancer. This information about the result of the mammogram report was provided to the patient to raise their awareness. Use this report when you speak with the patient about their risks for breast cancer, which includes their family history. At that time, you may recommend additional screening tests (Ultrasoun d or MRI) as these tests may add significant information. A negative radiographic report should not delay biopsy if a dominant or clinically suspicious mass is present. Up to ten percent of cancers are not identified on mammography. A negative report may reinforce clinical impression. Adenosis and dense breasts may obscure an underlying neoplasm. False positive reports average 6 to 10%. Patient will receive a letter notifying them of these results.
== END 2021-11-23 03:23 ==
PROVIDERS: PCP Nurse Practitioner Family; Visit Provider Nurse Practitioner Family
DX: Z12.31 Encounter for screening mammogram for malignant neoplasm of breast (principal); R92.8 Other abnormal and inconclusive findings on diagnostic imaging of breast
CPT/HCPCS: 77063; 77067

== ENCOUNTER 2021-12-07 10:43 | Outpatient (REF) | payer OTHER, MEDICAID, SELFPAY ==
[2021-12-07 16:57] LABS: Hemoglobin A1C 5.9 % (<5.7)
[2021-12-07 17:02] LABS: ALT 27 U/L (14-59); AST 16 U/L (15-37); Albumin 3.7 g/dL (3.4-5.0); Alkaline Phosphatase 97 U/L (46-116); Anion Gap 11.2 mmol/L (3-11); BUN 13 mg/dL (7-18); Bilirubin, Total 0.5 mg/dL (0.2-1.0); CO2 23.8 mmol/L (21.0-32.0); Calcium 8.8 mg/dL (8.5-10.1); Calculated LDL 137 mg/dL (<100); Chloride 105 mmol/L (98-107); Cholesterol 206 mg/dL (<200); Estimated GFR 58.45 (mL/min/1.73m2); Glucose 100 mg/dL (74-106); HDL Cholesterol 47 mg/dL (40-60); Potassium 3.7 mmol/L (3.5-5.1); Sodium 140 mmol/L (136-145); TSH (W/Ref FT4) 0.54 uIU/mL (0.36-3.74); Total Protein 7.3 g/dL (6.4-8.2); Triglyceride 113 mg/dL (<150)
[2021-12-08 11:19] LABS: HIV-1/2 Ag & Ab Screen Negative (Negative)
== END 2021-12-07 10:44 | disposition home or self-care (01) ==
LOC: NCHCN 10:43
PROVIDERS: PCP Nurse Practitioner Family; Visit Provider Nurse Practitioner Family
DX: R07.9 Chest pain, unspecified (principal); K11.7 Disturbances of salivary secretion; E04.1 Nontoxic single thyroid nodule; R73.03 Prediabetes; K76.0 Fatty (change of) liver, not elsewhere classified; Z11.4 Encounter for screening for human immunodeficiency virus [HIV]; Z00.00 Encounter for general adult medical examination without abnormal findings
CPT/HCPCS: 80053; 80061; 87389; 83036; 84443

== ENCOUNTER 2022-02-02 22:59 | Emergency (ER) | payer OTHER, MEDICAID, SELFPAY ==
[2022-02-02 23:02] VITALS: BP 158/88; PULSE 101; RESP 18; TEMP 36.6; O2SAT 97
--- NOTE | 2022-02-02 23:15 | ED.GENADUL_ITS ---
Discharge Plan Disposition Patient Disposition: HOME Condition: Stable Discharge Details Clinical Impression: Low back pain Primary Care Provider: Lucy Courtney ED Provider: Akira Guerra Home Meds and New Rx's Prescriptions: Continued topiramate [Topamax] 100 mg tablet 100 mg PO BID 0RF venlafaxine 225 mg Tablet Extended Release 24hr 225 mg PO DAILY 0RF Rx Instructions: EXTENDED RELEASE acetaminophen 500 mg tablet 1,000 mg PO Q8H PRN (Reason: pain) Qty: 90 3RF Incruse Ellipta 62.5 mcg/actuation blister with device 1 inh INHALATION DAILY 0RF Label Comments: INHALE ONE PUFF BY MOUTH EVERY DAY ketorolac 30 mg/mL (1 mL) solution 60 mg IM DIRECTED 0RF Label Comments: INJECT 2ML INTO THE MUSCLE ONCE WEEKLY NEEDED NOT TO EXCEED ONE INJECTION IN 24 HOURS 2 IN ONE WEEK AND 5 IN ONE MONTH Rx Instructions: no more than 5 shots per month montelukast 10 mg tablet 10 mg PO DAILY 0RF Label Comments: TAKE ONE TABLET BY MOUTH EVERY DAY benzonatate 100 mg Capsule 100 mg PO TID PRN (Reason: cough) Qty: 15 0RF albuterol sulfate [Proventil HFA] 200 PUFF HFA aerosol inhaler 2 puff Inhalation PRN PRN0RF clonazepam 1 mg Tablet 1 mg PO QID 0RF gabapentin 100 mg Capsule 400 mg PO TID 0RF pantoprazole [Protonix] 40 mg tablet,delayed release (DR/EC) 40 mg PO BID Qty: 60 12RF Discharge Instructions Additional Instructions: follow up with your surgeon and primary care provider if you develop fevers, difficulty urinating or feel more ill return to the emergency department for reevaluation Medical Decision Making 51 yo female with hx of migraines, copd, gerd, known L5 nerve root compression and scheduled for surgery in February at [facility] comes in with right lower back pain similar to prior pain she's had for months but every so often per patient has increased pain and today has had increased pain. Denies any falls or trauma, no fevers, chills, abdomen pain and has not had any issues with bowel movements or urination. She localizes the pain to the right lower back and states pain goes down the posterior right leg. She has no midline tenderness, no rashes, no cva tenderness, no abdomen tenderness. Normal distal sensation and pulses and normal reflexes in the knees and no saddle anesthesia. Suspect this is her known nerve root compression, no findings on history or physical exam to suggest abscess, cauda equina, osteo, or fracture. Will treat her pain and reassess. pt advised she feels significantly better and would like to be discharged. STill no saddle anesthia and still normal sensation and pulses in the leg. Advised to f/u with her surgeon and pcp and return precautions given Differential Diagnosis Differential Diagnosis: sciatica, nerve compression Medical Records Medical records reviewed: Yes I reviewed the patient's medical records. HPI General Mode of arrival: ambulatory . Date/Time Provider Initiated Documentation: 02/02/22 23:05 . Limitations to Documentation: no limitations . Information obtained by: patient . History of Present Illness 51 year old F presents to the emergency department with the chief complaint of low back pain, described as moderate and severe, and is localized to the back. Patient reports no radiation. Patient started experiencing this month(s) (4) and it has been constant. improves with No relieving factors improve symptom(s), No exacerbating factors reported . Patient notes denies fever/chills and nausea/vomiting. Related Data Home Medications Medication Instructions Recorded Confirmed albuterol sulfate 90 mcg/actuation 2 puff INHALATION PRN PRN 02/15/17 02/02/22 aerosol inhaler (Proventil HFA) clonazepam 1 mg tablet 1 mg PO QID 11/29/18 02/02/22 gabapentin 100 mg capsule 400 mg PO TID 11/29/18 02/02/22 acetaminophen 500 mg tablet 1,000 mg PO Q8H PRN #90 tab 11/15/19 02/02/22 venlafaxine 225 mg tablet,extended 225 mg PO DAILY 11/15/19 02/02/22 release 24 hr topiramate 100 mg tablet (Topamax) 100 mg PO BID 12/26/20 02/02/22 pantoprazole 40 mg tablet,delayed 40 mg PO BID #60 tab 02/09/21 02/02/22 release (Protonix) ketorolac 30 mg/mL (1 mL) 60 mg IM DIRECTED 05/18/21 02/02/22 injection solution montelukast 10 mg tablet 10 mg PO DAILY 05/18/21 02/02/22 umeclidinium 62.5 mcg/actuation 1 inh INHALATION DAILY 05/18/21 02/02/22 blister powder for inhalation (Incruse Ellipta) benzonatate 100 mg capsule 100 mg PO TID PRN #15 cap 09/27/21 02/02/22 Previous Rx's Medication Instructions Recorded acetaminophen 500 mg tablet 1,000 mg PO Q8H PRN #90 tab 11/15/19 pantoprazole 40 mg tablet,delayed 40 mg PO BID #60 tab 02/09/21 release (Protonix) benzonatate 100 mg capsule 100 mg PO TID PRN #15 cap 09/27/21 Allergies Allergy/AdvReac Type Severity Reaction Status Date / Time adhesive Allergy Intermediate gets red Verified 02/02/22 23:06 and welts up codeine Allergy Intermediate Itching Unverified 02/02/22 23:06 oxycodone HCl [From Percocet] Allergy Intermediate Anaphylaxsi Unverified 02/02/22 23:06 s morphine Allergy Itching Verified 02/02/22 23:06 cyclobenzaprine AdvReac Headache Unverified 02/02/22 23:06 [From Flexeril] General Stated Complaint: Nk/Back Pain CRISTI: 4 Review of Systems All systems reviewed & are unremarkable except as noted in HPI and below Constitutional Constitutional: Denies chills, Denies fever(s) and Denies weakness Eyes Eyes: Denies loss of vision Cardiovascular Cardiovascular: Denies chest pain and Denies dyspnea Respiratory Respiratory: Denies cough and Denies dyspnea Gastrointestinal Gastrointestinal: Denies abdominal pain, Denies nausea and Denies vomiting Genitourinary Genitourinary: Denies dysuria Musculoskeletal Musculoskeletal: Denies joint swelling Integumentary/Breasts Skin/Breast: Denies rash Neurologic Neurologic: Denies loss of vision and Denies weakness COUNT INCLUDES THE [facility] All Active Problems (Updated 02/02/22 @ 23:36 by Akira Guerra MD) Migraine (Chronic) Contact dermatitis (Acute) Headache (Acute) Hand laceration (Acute) Visit for suture removal (Acute) Cellulitis of finger (Acute) COPD (chronic obstructive pulmonary disease) with acute bronchitis (Acute) Low back pain (Acute) GERD with esophagitis (Acute) Duodenitis (Acute) Chronic erosive gastritis (Acute) Esophagitis, Spencer grade A (Acute) Vertigo (Chronic) Diplopia (Acute) Thyroid nodule (Acute) Tobacco abuse (Acute) Atypical migraine (Acute) Migraine headache with aura (Acute) Migraine headache without aura (Acute) Effusion, left knee (Acute) Pain in knee region after total knee replacement (Acute) Atypical chest pain (Acute) Osteoarthritis of left hip joint due to dysplasia (Acute) Left buttock pain (Acute) Left sciatic notch pain (Acute) Abdominal pain (Acute) Papanicolaou smear for cervical cancer screening (Acute) Gross hematuria (Acute) Renal cyst (Acute) History of total left knee replacement (TKR) (Acute 11/14/19) Dr. Brunson Chronic low back pain (Acute) Lumbar degenerative disc disease (Acute) Chronic headache (Acute) Medical History Anxiety treated Arthralgia Asthma Chronic headache Chronic low back pain Chronic pain Cigarette smoker Depression Dyspepsia Family history of colon cancer GERD (gastroesophageal reflux disease) Gross hematuria Hidradenitis suppurativa Hyperthyroidism Intertrigo Left lateral epicondylitis s/p debridement 11/30/18 Lumbar degenerative disc disease Malaise and fatigue Migraine Obese Obstructive sleep apnea No CPAP at this time Postmenopausal bleeding resolved Prediabetes PTSD (post-traumatic stress disorder) Renal cyst Syncope Tear of medial meniscus of left knee Aspiration: 04/09/2019; 02/05/19 Depo-Medrol injection: 04/09/2019; 02/05/19 Tendinitis of both rotator cuffs (06/30/18) Thyroid nodule TIA (transient ischemic attack) 06/15 Tobacco use Vertigo Surgical History Colonoscopy - MAC (02/14/18) EGD - MAC (02/14/18) History of back surgery lower back, 07/2020 History of esophagogastroduodenoscopy (EGD) (~02/09/21) History of total left knee replacement (TKR) (11/14/19) Dr. Brunson Replacement of total knee joint R Rotator Cuff Repair 2x on R, 1 x on L, pt report 2 on the left side S/P left knee arthroscopy partial medial menisectomy and trochlear chondroplasty DOS: 05/17/19 Aspiration/Injection: 06/15/19 Status post left rotator cuff repair DOS: 11/30/2018 Dr. Prohaska corticosteroid injection: 02/21/19 Family History Father Rheumatoid arthritis Brother Rheumatoid arthritis Social History Smoking/Tobacco Use Status: Current-Occasional Tobacco Type: cigarettes Tobacco: How many years used: 25 Smoking risk assessment performed?: Yes Alcohol Intake: current Alcohol Intake frequency: holidays/special occasions only Alcohol type: other Drug use: Occasionally Substance use type: marijuana Current gender identity: female Do you feel safe at home: Yes Do you feel safe in your relationship?: Yes Exam Const General: no acute distress Orientation: alert HENMT Head: normal to inspection Ears: external ears normal General nose exam: external nose normal Mouth: moist mucous membranes Eyes General: appearance normal, both eyes and all related structures Neck Neck: normal visual inspection Resp Effort & Inspection: normal respiratory effort and able to speak in complete sentences Cardio Rate: regular rate GI Palpation: soft and nontender Back/Spine/Pelvis Back: no CVA tenderness Skin General skin exam: no rashes or lesions noted Neuro General: patient alert and patient oriented x3 Extrem General: normal to inspection Psych Mental Status: mental status grossly normal Course Vital Signs Vital signs: Vital Signs Temperature 36.6 C 02/02/22 23:02 Pulse 101 H 02/02/22 23:02 Respiratory Rate 18 02/02/22 23:02 Blood Pressure 158/88 H 02/02/22 23:02 Pulse Oximetry 97 02/02/22 23:02 Temperature 36.6 C 02/02/22 23:02 Temperature Source Temporal Artery Scan 02/02/22 23:02 Pulse 101 H 02/02/22 23:02 Respiratory Rate 18 02/02/22 23:02 Respiratory Effort 02/02/22 23:07 Blood Pressure 158/88 H 02/02/22 23:02 Blood Pressure Position Sitting 02/02/22 23:02 Pulse Oximetry 97 02/02/22 23:02 Oxygen Delivery Method Room Air 02/02/22 23:02 Oxygen Flow Rate 0 02/02/22 23:02 Pain Level 10 02/02/22 23:02
[2022-02-02] MEDS: HYDROmorphone 2 MG/ML VIAL IM (23:43)
[2022-02-02] MEDS: Ketorolac 30 MG/ML VIAL IM (23:43)
== END 2022-02-03 00:18 | disposition home or self-care (01) ==
PROVIDERS: Emergency Provider Emergency Medicine; PCP Nurse Practitioner Family
DX: M54.50 Low back pain, unspecified (principal); G54.8 Other nerve root and plexus disorders
CPT/HCPCS: 96372; 99284; 99283; J1885

== ENCOUNTER → 2022-02-15 02:09 | Outpatient (CLI) | payer OTHER, MEDICAID, SELFPAY ==
--- NOTE | 2022-02-15 | DI.US_ITS ---
Exam(s) US ABDOMEN EXAM: US ABDOMEN CLINICAL HISTORY: FATTY LIVER DISEASE K76.0 TECHNIQUE: Ultrasound of complete upper abdomen performed using standard protocol. COMPARISON: US US ABDOMEN from 05/20/[address] ABDOMEN PELVIS WO from 01/07/2021 FINDINGS: There is no ascites evident. LIVER: There are no hepatic lesions evident nor obvious dilatation of intrahepatic ducts. Liver size is upper normal. Slightly coarse echotexture. GALLBLADDER/BILIARY: There are no gallstones. No gallbladder wall edema nor pericholecystic fluid. The common hepatic duct isnot dilated, measuring 3-4mm at the level of kaitlin hepatis. PANCREAS: There is no evidence of pancreatic mass nor dilatation of the pancreatic duct. SPLEEN: The spleen is not enlarged and there are no intrasplenic lesions evident. KIDNEYS:Parapelvic cyst the right kidney is noted measuring by 1.4 cm.. There is a larger cyst left kidney noted measures 3 x 3.5 cm. No solid renal masses. No calculi. Hydronephrosis. Cortical thi ckness is normal. ABDOMINAL AORTA: There is no evidence of abdominal aortic aneurysm. IVC: Normal diameter where visualized. IMPRESSION: 1. No evidence of cholelithiasis nor dilatation of the biliary tree. 2. Solitary benign cyst in each kidney, the larger of the 2 measuring 3 cm. 3. There is no ascites. DATA REPOSITORY:
--- NOTE | 2022-02-15 08:05 | DI.CT_ITS ---
Exam(s) CT CHEST WO EXAM: CT CHEST WO CLINICAL HISTORY: SMOKER F17.210. TECHNIQUE: Multi planar reconstructions were performed. CONTRAST MATERIAL: None COMPARISON: CT CT CHEST PE CTA from 06/06/2019 FINDINGS: CHEST: LUNGS: There are no infiltrates nor pleural effusions. No significant pulmonary nodules. No signifi cant focal findings in the trachea and mainstem bronchi. MEDIASTINUM: There is no obvious hilar nor mediastinal adenopathy. Abnormal thyroid. There appears t o be a prominent nodule in the left lobe. Ultrasound recommended.No obvious axillary adenopathy CARDIAC: Heart size is normal. There is no pericardial effusion.Caliber of the thoracic aorta is wit hin normal limits. VISUALIZED UPPER ABDOMEN: OSSEOUS: No significant osseous lesions.. IMPRESSION: 1. No pulmonary nodules no other significant pulmonary findings and no pleural effusions nor intratho racic adenopathy. 2. Incidentally noted is abnormal thyroid gland significant nodule evident in the left lobe. Ultraso und of thyroid gland is recommended. RADIATION DOSE DELIVERED: 178.18mGy.cm Total DLP DATA REPOSITORY: All CT scans at this facility are submitted to the National Radiology Data Registry (NRDR) Dose Index Registry (DIR) with the [employer] ([employer]). RADIATION OPTIMIZATION: All CT scans at this facility use at least one of these dose optimization te chniques: automated exposure control; mA and/or kV adjustment per patient size (includes targeted exa ms where dose is matched to clinical indication); or iterative reconstruction.
== END ==
PROVIDERS: PCP Nurse Practitioner Family; Visit Provider Nurse Practitioner Family
DX: F17.210 Nicotine dependence, cigarettes, uncomplicated (principal); E04.1 Nontoxic single thyroid nodule; K76.0 Fatty (change of) liver, not elsewhere classified; N28.1 Cyst of kidney, acquired
CPT/HCPCS: 71250; 76700

== ENCOUNTER 2022-03-01 04:04 | Outpatient (CLI) | payer OTHER, MEDICAID, SELFPAY ==
[2022-03-01 10:51] LABS: Source Nasal/Nares
[2022-03-01 15:17] LABS: COVID-19 PCR Negative (Negative)
== END 2022-03-01 04:05 | disposition home or self-care (01) ==
LOC: LBO 04:04
PROVIDERS: PCP Nurse Practitioner Family; Visit Provider Orthopaedic Surgery
DX: Z20.822 Contact with and (suspected) exposure to COVID-19 (principal); Z01.812 Encounter for preprocedural laboratory examination
CPT/HCPCS: 87635; U0005

== ENCOUNTER 2022-08-18 18:15 | Outpatient (REF) | payer OTHER, MEDICAID, SELFPAY ==
[2022-08-18 19:28] LABS: HCT 39.7 % (36.0-46.0); HGB 12.3 g/dL (11.2-15.7); MCH 27.7 pg (27.0-33.0); MCV 89 fL (80-95); Platelet Count 344 10^3/uL (130-400); RBC 4.44 10^6/uL (3.93-5.22); RDW 15.9 % (11.7-14.6); RDW-SD 52.6 fL
[2022-08-18 19:59] LABS: ALT 23 U/L (14-59); AST 15 U/L (15-37); Albumin 3.6 g/dL (3.4-5.0); Alkaline Phosphatase 94 U/L (46-116); Anion Gap 8.7 mmol/L (3-11); BUN 18 mg/dL (7-18); Bilirubin, Total 0.3 mg/dL (0.2-1.0); CO2 25.3 mmol/L (21.0-32.0); CREATININE 0.9 mg/dL (0.55-1.02); Calcium 9.2 mg/dL (8.5-10.1); Chloride 109 mmol/L (98-107); Estimated GFR 76.92 (mL/min/1.73m2); Glucose 110 mg/dL (74-106); Potassium 4.2 mmol/L (3.5-5.1); Sodium 143 mmol/L (136-145); TSH (W/Ref FT4) 0.63 uIU/mL (0.36-3.74); Total Protein 7.3 g/dL (6.4-8.2)
== END 2022-08-18 18:16 | disposition home or self-care (01) ==
LOC: NCHCN 18:15
PROVIDERS: PCP Nurse Practitioner Family; Visit Provider Family Medicine
DX: R42 Dizziness and giddiness (principal); E04.1 Nontoxic single thyroid nodule
CPT/HCPCS: 80053; 85027; 84443

== ENCOUNTER 2022-09-02 19:44 | Emergency (ER) | payer OTHER, MEDICAID, SELFPAY ==
[2022-09-02 19:47] VITALS: BP 121/82; PULSE 95; RESP 20; TEMP 36.6; O2SAT 99
--- NOTE | 2022-09-02 20:00 | DI.CT_ITS ---
Exam(s) CT ABDOMEN PELVIS W EXAM: CT ABDOMEN PELVIS W CLINICAL HISTORY: LLQ and hip pain, vaginal discharge. TECHNIQUE: Imaging Protocol: Axial computed tomography images with coronal and sagittal reformatted images were created and reviewed CONTRAST MATERIAL: Intravenous: Omnipaque 100cc Oral: None COMPARISON: CT CT ABDOMEN PELVIS WO from 01/07/2021 FINDINGS: VISUALIZED LUNG BASES: No nodules nor pleural effusions evident. ABDOMEN: There is no ascites. LIVER: There are no focal hepatic lesions evident . GALLBLADDER/BILIARY: No obvious gallbladder pathology. CBD is not dilated. PANCREAS: No evidence of pancreatic mass nor dilatation of the pancreatic duct. SPLEEN: Spleen is not enlarged. No obvious intrasplenic lesions. Splenic and portal veins are paten t. ADRENALS: There are no significant adrenal masses. KIDNEYS:There is a 4 x 4 cm midpole level cyst in the left kidney and there is a smaller 2.3 by 2.6 c m cyst at similar location in the right kidney. No solid renal masses. No calculi. No hydronephros is. No hydroureter. No obvious abnormality in the urinary bladder. Retroaortic left renal vein inc identally noted. ABDOMINAL AORTA: Abdominal aorta is not enlarged. LYMPH NODES:There is no retroperitoneal nor paraaortic adenopathy. ABDOMINAL WALL: No evidence of significant anterior abdominal wall nor inguinal hernia. GI: There is no evidence of bowel obstruction, free air, nor abscess. PELVIS: GI: No evidence of appendicitis.No evidence of sigmoid diverticulitis. LYMPH NODES: There is no intrapelvic nor inguinal adenopathy. REPRODUCTIVE: Uterus and adnexal regions unremarkable. No free fluid in the pelvis. URINARY BLADDER: No calculi nor obvious masses evident OSSEOUS: Sclerotic small benign bone island noted in left side of the symphysis pubis. There is a pr ominent osseous defect in the posterior right iliac bone from donor site for prior fusion back surger y. There is posterior fusion hardware evident at L4-5 level secured by bilateral intrapedicular scre ws at these 2 levels. There is mild anterolisthesis L4 upon L5. Also mild disc space narrowing at t his level. IMPRESSION: 1. No acute findings in the abdomen and pelvis. 2. Benign cysts in both kidneys as described above. No solid renal masses. 3. L4-5 fusion surgery noted. This has occurred since the prior CT scan December 2020. RADIATION DOSE DELIVERED: 1,120.04mGy.cm Total DLP DATA REPOSITORY: All CT scans at this facility are submitted to the National Radiology Data Registry (NRDR) Dose Index Registry (DIR) with the [employer] (ACR). RADIATION OPTIMIZATION: All CT scans at this facility use at least one of these dose optimization te chniques: automated exposure control; mA and/or kV adjustment per patient size (includes targeted exa ms where dose is matched to clinical indication); or iterative reconstruction.
--- NOTE | 2022-09-02 20:16 | W.ED.GENAD ---
Discharge Plan Disposition Patient Disposition: HOME Condition: Good Discharge Details Chief Complaint: Orthopedic Clinical Impression: Hip pain, left Primary Care Provider: Lucy Courtney ED Provider: Goran Coy Home Meds and New Rx's Prescriptions: No Action topiramate [Topamax] 100 mg tablet 100 mg PO BID pantoprazole 40 mg tablet,delayed release (DR/EC) See Rx Instructions .ROUTE .COMPLEX Qty: 60 12RF Dose Instruction: TAKE ONE TABLET BY MOUTH TWICE A DAY Rx Instructions: TAKE ONE TABLET BY MOUTH TWICE A DAY acetaminophen 500 mg tablet 1,000 mg PO Q8H PRN (Reason: pain) Qty: 90 3RF Incruse Ellipta 62.5 mcg/actuation blister with device 1 inh INHALATION DAILY Label Comments: INHALE ONE PUFF BY MOUTH EVERY DAY montelukast 10 mg tablet 10 mg PO DAILY Label Comments: TAKE ONE TABLET BY MOUTH EVERY DAY albuterol sulfate [Proventil HFA] 200 PUFF HFA aerosol inhaler 2 puff Inhalation PRN PRN gabapentin 100 mg Capsule 400 mg PO TID Discharge Instructions Instructions: Hip Pain (ED) Additional Instructions: At this time your CT scan shows no significant abnormality. Your laboratory work-up is reassuring. I am concerned that your symptoms are secondary to irritation in your hip from previous injuries and use in the past. Please follow-up closely with your primary care provider for reassessment. Take Tylenol and Motrin as needed for pain. If you notice any worsening of your symptoms, or any new symptoms such as vomiting, diarrhea, fever, chills, shortness of breath, chest pain, numbness, weakness, or fainting , please return immediately to the emergency department for reevaluation. Please follow up with your primary care provider as soon as possible for reassessment and reevaluation. As always, it was a pleasure participating in your medical care today. Referrals: Lucy Courtney [Primary Care Provider] - Medical Decision Making 52-year-old female with a past medical history of previous spinal surgery in the lower lumbar spine secondary to discopathy, COPD, gastritis, high cholesterol, migraines, and a history of left buttock and left sciatic pain, presents today for evaluation of pelvic pain, and left hip pain. Patient states that everything was fine for the last week, then suddenly this morning when she awoke she had notable pain in her left lower pelvis as she describes it, as well as her left hip. Pain is made worse with movement, but always present. Pain with movement is a 10 out of 10, and at rest without movement it is a 6 out of 10. Pain is sharp in nature. It radiates from the left pelvis to the hip, and slightly upper left back. She denies any urinary complaints. Does admit to discharge vaginally for the last few days, and states this is atypical. She is sexually active with her female partner, but has not been sexually active for the last 2 months. She denies any STDs. She denies any other complaints at this time. She denies chest pain, tearing or ripping pain, diarrhea, or vomiting. She denies any dysuria or frequency. No other complaints at this time. Exam demonstrates pain in the left hip worsened with movement. No significant reproducible pelvic or abdominal pain though. No midline lumbar spine tenderness or significant paraspinal tenderness. No redness to suggest infection. No evidence of hernia. No distal neurovascular compromise in the left lower extremity. Patient has notably outrightly refused vaginal exam. She states that she is scheduled to follow-up with her primary care provider this week, and does not want any pelvic exam at this time. I did discuss with her my concern for potential infection and she understands and continues to want to hold off on any pelvic exam at this time. Due to her symptoms so we will get a CT scan of her abdomen to make sure there is no evidence of ovarian cyst, tubo-ovarian abscess, or other significant abnormality. We will treat with pain medications, monitor closely and reassess. Differential also includes urinary etiology. 11:45 PM Laboratory work-up is notably unremarkable and reassuring. Urinalysis is unremarkable, CT scan shows no evidence of significant abnormality per radiology. Patient remained stable. I do suspect that there is likely a hip joint pathology at this time. No evidence of laxity or infection. Patient does admit to a history of injuries and heavy use for her hip in the past. With no evidence of vascular compromise or other significant abnormality clinically, I do feel that the patient is stable for discharge with close outpatient follow-up. Will recommend Tylenol Motrin and rest. Discussed red flags which to return. I have extensively reviewed the treatment plan and discharge instructions with the patient. I have addressed all patient concerns at this time. The patient was made aware of what symptoms to monitor for that would warrant a return to the emergency department. Discussed the plan with the patient, they demonstrate verbal understanding and agreement with our assessment and plan at this time. The documentation in this chart was dictated using [employer] dictation software. Please excuse any dictation errors. FINDINGS: Liver: Normal. Gallbladder and bile ducts: Normal. Pancreas: Normal. Spleen: Normal. Adrenal glands: Normal. No mass. Kidneys and ureters: Bilateral simple renal cysts, for which no further evaluation necessary. Stomach and bowel: Normal. Appendix: Appendix normal. Intraperitoneal space: Unremarkable. No free air. No significant fluid collection. Vasculature: Unremarkable. No abdominal aortic aneurysm. Lymph nodes: Unremarkable. No enlarged lymph nodes. Urinary bladder: Unremarkable as visualized. Reproductive: Unremarkable as visualized. Bones/joints: L4-L5 posterior fusion changes. L4-L5 and L5-S1 degenerative disc space narrowing and osteophyte formation. Soft tissues: Normal. IMPRESSION: No acute abdominal or pelvic abnormality. Thank you for allowing us to participate in the care of your patient. Dictated and Authenticated by: Julius Gibson MD 09/02/2022 10:18 PM Eastern Time ([place] & [place]) HPI General Date/Time Provider Initiated Documentation: 09/02/22 19:45. HPI Narrative: 52-year-old female with a past medical history of previous spinal surgery in the lower lumbar spine secondary to discopathy, COPD, gastritis, high cholesterol, migraines, and a history of left buttock and left sciatic pain, presents today for evaluation of pelvic pain, and left hip pain. Patient states that everything was fine for the last week, then suddenly this morning when she awoke she had notable pain in her left lower pelvis as she describes it, as well as her left hip. Pain is made worse with movement, but always present. Pain with movement is a 10 out of 10, and at rest without movement it is a 6 out of 10. Pain is sharp in nature. It radiates from the left pelvis to the hip, and slightly upper left back. She denies any urinary complaints. Does admit to discharge vaginally for the last few days, and states this is atypical. She is sexually active with her female partner, but has not been sexually active for the last 2 months. She denies any STDs. She denies any other complaints at this time. She denies chest pain, tearing or ripping pain, diarrhea, or vomiting. She denies any dysuria or frequency. No other complaints at this time. Related Data Home Medications Medication Instructions Recorded Confirmed albuterol sulfate 90 mcg/actuation 2 puff inhalation PRN PRN 02/15/17 09/02/22 aerosol inhaler (Proventil HFA) gabapentin 100 mg capsule 400 mg PO TID 11/29/18 09/02/22 acetaminophen 500 mg tablet 1,000 mg PO Q8H PRN pain #90 tabs 11/15/19 09/02/22 topiramate 100 mg tablet (Topamax) 100 mg PO BID 12/26/20 09/02/22 montelukast 10 mg tablet 10 mg PO DAILY 05/18/21 09/02/22 umeclidinium 62.5 mcg/actuation 1 inh inhalation DAILY 05/18/21 09/02/22 blister powder for inhalation (Incruse Ellipta) pantoprazole 40 mg tablet,delayed See Rx Instructions .Route 03/01/22 09/02/22 release .COMPLEX #60 tabs Previous Rx's Medication Instructions Recorded acetaminophen 500 mg tablet 1,000 mg PO Q8H PRN pain #90 tabs 11/15/19 pantoprazole 40 mg tablet,delayed See Rx Instructions .Route 03/01/22 release .COMPLEX #60 tabs Allergies Allergy/AdvReac Type Severity Reaction Status Date / Time adhesive Allergy Intermediate gets red Verified 02/02/22 23:06 and welts up codeine Allergy Intermediate Itching Unverified 02/02/22 23:06 oxycodone HCl [From Percocet] Allergy Intermediate Anaphylaxsi Unverified 02/02/22 23:06 s morphine Allergy Itching Verified 02/02/22 23:06 cyclobenzaprine AdvReac Headache Unverified 02/02/22 23:06 [From Flexeril] General Stated Complaint: Orthopedic CRISTI: 4 Review of Systems All systems reviewed & are unremarkable except as noted in HPI and below PFSH All Active Problems (Updated 09/02/22 @ 23:41 by Goran Coy DO) Migraine (Chronic) Contact dermatitis (Acute) Headache (Acute) Hand laceration (Acute) Visit for suture removal (Acute) Cellulitis of finger (Acute) COPD (chronic obstructive pulmonary disease) with acute bronchitis (Acute) Hip pain, left (Acute) GERD with esophagitis (Acute) Duodenitis (Acute) Chronic erosive gastritis (Acute) Esophagitis, [place] grade A (Acute) Vertigo (Chronic) Diplopia (Acute) Thyroid nodule (Acute) Tobacco abuse (Acute) Atypical migraine (Acute) Migraine headache with aura (Acute) Migraine headache without aura (Acute) Effusion, left knee (Acute) Pain in knee region after total knee replacement (Acute) Atypical chest pain (Acute) Osteoarthritis of left hip joint due to dysplasia (Acute) Left buttock pain (Acute) Left sciatic notch pain (Acute) Abdominal pain (Acute) Papanicolaou smear for cervical cancer screening (Acute) Gross hematuria (Acute) Renal cyst (Acute) History of total left knee replacement (TKR) (Acute 11/14/19) Dr. Brunson Chronic low back pain (Acute) Lumbar degenerative disc disease (Acute) Chronic headache (Acute) Medical History Arthralgia Asthma Chronic pain Cigarette smoker Depression Dyspepsia Family history of colon cancer Hidradenitis suppurativa Hyperthyroidism Intertrigo Left lateral epicondylitis s/p debridement 11/30/18 Malaise and fatigue Migraine Obese Obstructive sleep apnea No CPAP at this time Postmenopausal bleeding resolved Prediabetes PTSD (post-traumatic stress disorder) Syncope Tear of medial meniscus of left knee Aspiration: 04/09/2019; 02/05/19 Depo-Medrol injection: 04/09/2019; 02/05/19 Tendinitis of both rotator cuffs (06/30/18) Thyroid nodule TIA (transient ischemic attack) 06/15 Tobacco use Surgical History Colonoscopy - MAC (02/14/18) EGD - MAC (02/14/18) History of back surgery lower back, 07/2020 History of esophagogastroduodenoscopy (EGD) (~02/09/21) Replacement of total knee joint R Rotator Cuff Repair 2x on R, 1 x on L, pt report 2 on the left side S/P left knee arthroscopy partial medial menisectomy and trochlear chondroplasty DOS: 05/17/19 Aspiration/Injection: 06/15/19 Status post left rotator cuff repair DOS: 11/30/2018 Dr. Brunson corticosteroid injection: 02/21/19 Family History Father Rheumatoid arthritis Brother Rheumatoid arthritis Social History Smoking/Tobacco Use Status: Current-Occasional Tobacco Type: cigarettes Tobacco: How many years used: 25 Smoking risk assessment performed?: Yes Alcohol Intake: current Alcohol Intake frequency: holidays/special occasions only Alcohol type: other Drug use: Occasionally Substance use type: marijuana Current gender identity: female Do you feel safe at home: Yes Do you feel safe in your relationship?: Yes Exam Narrative Exam Narrative: 1.Const: Well-nourished, Well-developed, appearing stated age 2.Eyes: PERRL, no conjunctival injection, and symmetrical lids. 3.ENT: Atraumatic external nose and ears. Moist MM. Neck: Symmetric, trachea midline, No thyromegaly. 4.CVS: +S1/S2, No murmurs or gallops. Peripheral pulses 2+ and equal in all extremities. Brisk capillary refill in all extremities. 5.RESP: Unlabored respiratory effort. Clear to auscultation bilaterally. No wheezes rales or rhonchi 6.GI: Soft, Nontender/Nondistended, No hepatosplenomegaly. No pain at McBurney's point, negative Sr sign. Negative CVA tenderness. Pain is made worse with any movement of the left hip. However hip itself is not red swollen or warm. Inguinal region bilaterally demonstrates no hernia. Vaginal discharge notably refused. Vaginal exam was performed with female nurse court at bedside. Vaginal exam demonstrates no significant discharge. No cervical motion tenderness. 7.MSK: Normocephalic/Atraumatic, Extremities w/o deformity or ttp No cyanosis or clubbing, Normal movement of all extremities 8.Skin: Warm, Dry. No rashes or lesions. 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 Sensation grossly intact, no focal neurologic deficits. 10.Psych: (AAO) x3. Appropriate mood and affect Course Vital Signs Vital signs: Vital Signs Temperature 36.6 C 09/02/22 19:47 Pulse 95 H 09/02/22 19:47 Respiratory Rate 20 09/02/22 19:47 Blood Pressure 121/82 09/02/22 19:47 Pulse Oximetry 99 09/02/22 19:47 Temperature 36.6 C 09/02/22 19:47 Temperature Source Temporal Artery Scan 09/02/22 19:47 Pulse 95 H 09/02/22 19:47 Respiratory Rate 20 09/02/22 19:47 Respiratory Effort 09/02/22 19:58 Blood Pressure 121/82 09/02/22 19:47 Blood Pressure Position Sitting 09/02/22 19:47 Pulse Oximetry 99 09/02/22 19:47 Oxygen Delivery Method Room Air 09/02/22 19:47 Oxygen Flow Rate 0 09/02/22 19:47 Pain Level 10 09/02/22 20:00
[2022-09-02] MEDS: Ketorolac 15 MG/ML VIAL IVP (20:34)
[2022-09-02] MEDS: Normal Saline 1,000 ML 1000 ML IV (20:34)
[2022-09-02] MEDS: HYDROmorphone 2 MG/ML SYR 1 MG IVP ×2 (20:35→22:01)
[2022-09-02 20:48] LABS: Abs Immature Grans 0.02 10^3/uL (0.0-0.06); Absolute Basophil Count 0.03 10^3/uL (0.0-0.2); Absolute Eosinophil Count 0.09 10^3/uL (0.0-0.7); Absolute Lymphocyte Count 3.71 10^3/uL (1.2-3.4); Absolute Monocyte Count 0.61 10^3/uL (0.1-0.8); Absolute Neutrophil Count 3.08 10^3/uL (1.2-6.7); Basophils % 0.4; Eosinophils % 1.2; HGB 11.7 g/dL (11.2-15.7); Immature Grans % 0.3; Lymphocytes % 49.2; MCH 27.7 pg (27.0-33.0); MCHC 30.8 % (32.0-36.0); MCV 90 fL (80-95); MPV 9.8 fL (8.0-11.0); Monocytes % 8.1; Neutrophils % 40.8; Platelet Count 318 10^3/uL (130-400); RBC 4.23 10^6/uL (3.93-5.22); RDW 16.1 % (11.7-14.6); RDW-SD 53.1 fL; WBC 7.54 10^3/uL (4.4-10.8)
[2022-09-02 21:13] LABS: ALT 24 U/L (14-59); AST 19 U/L (15-37); Albumin 3.4 g/dL (3.4-5.0); Alkaline Phosphatase 77 U/L (46-116); Anion Gap 9.2 mmol/L (3-11); BUN 14 mg/dL (7-18); Bilirubin, Total 0.2 mg/dL (0.2-1.0); CO2 24.8 mmol/L (21.0-32.0); CREATININE 0.9 mg/dL (0.55-1.02); Calcium 8.8 mg/dL (8.5-10.1); Chloride 109 mmol/L (98-107); Estimated GFR 76.92 (mL/min/1.73m2); Glucose 115 mg/dL (74-106); Potassium 3.8 mmol/L (3.5-5.1); Sodium 143 mmol/L (136-145); Total Protein 6.7 g/dL (6.4-8.2)
[2022-09-02] MEDS: Omnipaque 350 MG/ML 100 ML BTL IJ (21:30)
--- NOTE | 2022-09-02 22:19 | DI.VRAD_ITS ---
PROCEDURE INFORMATION: Exam: CT Abdomen And Pelvis With Contrast Exam date and time: 09/02/2022 9:22 PM Age: 52 years old Clinical indication: Abdominal pain; Localized; Lower; Additional info: Acute lower abd pain, and left hip pain TECHNIQUE: Imaging protocol: Computed tomography of the abdomen and pelvis with contrast. Radiation optimization: All CT scans at this facility use at least one of these dose optimization techniques: automated exposure control; mA and/or kV adjustment per patient size (includes targeted exams where dose is matched to clinical indication); or iterative reconstruction. Contrast material: OMNI 350; Contrast volume: 100 ml; Contrast route: INTRAVENOUS (IV); COMPARISON: CT ABDOMEN PELVIS WO 01/07/2021 12:30 PM FINDINGS: Liver: Normal. Gallbladder and bile ducts: Normal. Pancreas: Normal. Spleen: Normal. Adrenal glands: Normal. No mass. Kidneys and ureters: Bilateral simple renal cysts, for which no further evaluation necessary. Stomach and bowel: Normal. Appendix: Appendix normal. Intraperitoneal space: Unremarkable. No free air. No significant fluid collection. Vasculature: Unremarkable. No abdominal aortic aneurysm. Lymph nodes: Unremarkable. No enlarged lymph nodes. Urinary bladder: Unremarkable as visualized. Reproductive: Unremarkable as visualized. Bones/joints: L4-L5 posterior fusion changes. L4-L5 and L5-S1 degenerative disc space narrowing and osteophyte formation. Soft tissues: Normal. IMPRESSION: No acute abdominal or pelvic abnormality. Dictated and Authenticated by: Julius Gibson MD. Ordering:MIGUEL A Zimmer MD
[2022-09-02 23:26] LABS: Bilirubin Negative (Negative); Blood Trace-lysed (Negative); Clarity Clear (Clear); Glucose Negative (Negative); Ketones Negative (Negative); Leukocyte Esterase Negative (Negative); Nitrite Negative (Negative); Specific Gravity 1.015 (1.005-1.025); Urobilinogen 0.2 EU/dL (Up TO 0.2)
[2022-09-02 23:30] LABS: Bacteria Rare HPF (Negative); C & S Indicated? No; Casts Negative LPF (Negative); Crystals Negative HPF (Negative); Epithelial Cells Rare HPF (Negative); Mucus Negative (Negative); RBC 0-2 HPF (0-2); WBC Negative HPF (0-5)
[2022-09-02 23:57] VITALS: BP 138/100; PULSE 78; RESP 20; O2SAT 98
[2022-09-05 12:50] LABS: Chlamydia Result Negative (Negative); GC Result Negative (Negative)
== END 2022-09-02 23:57 | disposition home or self-care (01) ==
PROVIDERS: Emergency Provider Student in an Organized Health Care Education/Training Program; PCP Nurse Practitioner Family
DX: M25.552 Pain in left hip (principal); J44.9 Chronic obstructive pulmonary disease, unspecified; R10.2 Pelvic and perineal pain
CPT/HCPCS: 80053; 87491; 87591; 96361; 96374; 96375; 96376; 99285; 74177; 81003; 81015; 85025; 87480; 87510; 87660; 99284; J1170; J1885; J3490

== ENCOUNTER 2022-11-25 12:19 | Outpatient (CLI) | payer OTHER, MEDICAID, SELFPAY ==
--- NOTE | 2022-11-25 | DI.US_ITS ---
Exam(s) US BREAST RT COMPLETE EXAM: US BREAST RT COMPLETE CLINICAL HISTORY: MASTITIS W/OUT ABSCESS N61.0, INFECTION NOT IMPROVING W/ ANTIBIOTICS. TECHNIQUE: Complete ultrasound of the RIGHT breast was performed including all 4 quadrants, the retr oareolar region, and the ipsilateral axilla. COMPARISON: Prior mammograms were reviewed. Mammogram not requested at this time. FINDINGS: RIGHT BREAST ULTRASOUND: There is no evidence of solid or significant cystic lesions in all 4 quadrants. Scanning over her 2 separate areas of redness at the 7 and 8 o'clock positions do not reveal focal ultrasound findings. Scanning of the ipsilateral right axilla reveals a single benign-appearing lymph node. IMPRESSION: Negative complete right breast ultrasound. Appropriate follow-up is mammography. This patient is due for her yearly mammogram. Recommend this be scheduled. BI-RADS Category 0 - Assessment Incomplete: Need additional imaging evaluation, specifically mammogra phy Breast Density - Category C - Heterogeneously dense Breast density Category C or D implies that the patient has dense breast tissue. Dense breast tissue can make it harder to find cancer on a mammogram. Dense breast tissue is also associated with an incr eased risk of breast cancer. This information about the result of the mammogram report was provided to the patient to raise their awareness. Use this report when you speak with the patient about their risks for breast cancer, which includes their family history. At that time, you may recommend additional screening tests (Ultrasoun d or MRI) as these tests may add significant information. A negative radiographic report should not delay biopsy if a dominant or clinically suspicious mass is present. Up to ten percent of cancers are not identified on mammography. A negative report may reinforce clinical impression. Adenosis and dense breasts may obscure an underlying neoplasm. False positive reports average 6 to 10%. Patient will receive a letter notifying them of these results.
== END 2022-11-25 12:39 ==
LOC: DI 12:23
PROVIDERS: PCP Nurse Practitioner Family; Visit Provider Physician Assistant Medical
DX: N61.0 Mastitis without abscess (principal); R92.8 Other abnormal and inconclusive findings on diagnostic imaging of breast
CPT/HCPCS: 76642

== ENCOUNTER 2022-12-08 01:55 | Outpatient (CLI) | payer OTHER, MEDICAID, SELFPAY ==
--- NOTE | 2022-12-08 13:45 | DI.MAMMO_ITS ---
Exam(s) MAMMO SCREENING EXAM: MAMMO SCREENING CLINICAL HISTORY: SCREENING FOR BREAST CANCER, FU BREAST US ON 11/25/22 TECHNIQUE: Mammograms were interpreted according to the usual protocol including computer analysis w [employer] CAD system, tomosynthesis and C-view imaging. COMPARISON: 2012 through 2021 Right breast ultrasound 25 November 2022 FINDINGS: The breasts are composed of mainly fatty density , Breast Density category A. No suspicious masses or suspicious microcalcifications are seen. No skin thickening or abnormal axillary lymph nodes are seen. There has been no significant change from prior exams. IMPRESSION: BI-RADS Category 1, Negative mammogram Yearly screening mammography is recommended. Breast Density - Category A, fatty density. A negative radiographic report should not delay biopsy if a dominant or clinically suspicious mass is present. Up to ten percent of cancers are not identified on mammography. A negative report may reinforce clinical impression. Adenosis and dense breasts may obscure an underlying neoplasm. False positive reports average 6 to 10%. Patient will receive a letter notifying them of these results.
== END 2022-12-08 02:15 ==
LOC: DI 01:55
PROVIDERS: PCP Nurse Practitioner Family; Visit Provider Physician Assistant Medical
DX: Z12.31 Encounter for screening mammogram for malignant neoplasm of breast (principal)
CPT/HCPCS: 77063; 77067

== ENCOUNTER 2022-12-09 11:55 | Outpatient (CLI) | payer OTHER, MEDICAID, SELFPAY ==
--- NOTE | 2022-12-09 11:15 | DI.RAD_ITS ---
Exam(s) XR KNEE LT 3V AP,LAT,CYNDI EXAM: XR KNEE LT 3V AP,LAT,CYNDI CLINICAL HISTORY: LEFT KNEE PAIN. TECHNIQUE: 2D digital imaging was performed. Three images were obtained. AP, merchant's and lateral views were obtained. COMPARISON: CR XR KNEE LT 2V AP,LAT from 12/24/2019 FINDINGS: BONES: There are stable post operative changes present. No fracture or dislocation. JOINTS: The orthopedic hardware is in good position. No evidence of hardware loosening. SOFT TISSUE: Normal. IMPRESSION: Stable postoperative changes. DATA REPOSITORY: RADIATION DOSE DELIVERED:
--- NOTE | 2022-12-09 11:33 | DI.RAD_ITS ---
Exam(s) XR KNEE RT 3V AP,LAT,CYNDI EXAM: XR KNEE RT 3V AP,LAT,CYNDI CLINICAL HISTORY: RIGHT KNEE PAIN. TECHNIQUE: 2D digital imaging was performed. Three images were obtained. AP, lateral and merchant's views were obtained. COMPARISON: CR XR STANDING ALIGNMENT from 12/03/2019 FINDINGS: BONES: There are stable post operative changes present. No fracture or dislocation. JOINTS: The orthopedic hardware is in good position. No evidence of hardware loosening. SOFT TISSUE: Normal. IMPRESSION: Stable postoperative changes. DATA REPOSITORY: RADIATION DOSE DELIVERED:
== END 2022-12-09 11:56 | disposition home or self-care (01) ==
LOC: DIORS 11:55
PROVIDERS: PCP Nurse Practitioner Family; Referring Provider Nurse Practitioner Family; Visit Provider Student in an Organized Health Care Education/Training Program
DX: M25.862 Other specified joint disorders, left knee (principal); Z96.652 Presence of left artificial knee joint
CPT/HCPCS: 73562; 99213

== ENCOUNTER 2022-12-15 19:19 | Outpatient (REF) | payer OTHER, MEDICAID, SELFPAY ==
[2022-12-15 18:11] LABS: Bacteria Rare HPF (Negative); C & S Indicated? C&S Done As Ordered; Casts Negative LPF (Negative); Crystals Negative HPF (Negative); Epithelial Cells Few HPF (Negative); Mucus Negative (Negative)
== END 2022-12-15 19:20 | disposition home or self-care (01) ==
LOC: LBN 19:19
PROVIDERS: PCP Nurse Practitioner Family; Visit Provider Physician Assistant Medical
DX: R30.0 Dysuria (principal); N76.0 Acute vaginitis
CPT/HCPCS: 81015; 87086; 87480; 87510; 87660

== ENCOUNTER 2022-12-29 19:00 | Emergency (ER) | payer OTHER, MEDICAID, SELFPAY ==
[2022-12-29 19:09] VITALS: BP 196/92; PULSE 81; RESP 16; TEMP 36.6; O2SAT 98
[2022-12-29] MEDS: predniSONE 20 MG TAB 60 MG PO (19:39)
[2022-12-29] MEDS: Famotidine 20 MG TAB 40 MG PO (19:39)
--- NOTE | 2022-12-29 19:40 | ED.GENADUL_ITS ---
Discharge Plan Disposition Patient Disposition: Home Condition: Stable Discharge Details Clinical Impression: Urticaria Primary Care Provider: Lucy Courtney ED Provider: Akira Guerra Home Meds and New Rx's Prescriptions: New prednisone 20 mg tablet 60 mg PO DAILY 4 Days Qty: 12 0RF Continued topiramate [Topamax] 100 mg tablet 100 mg PO BID pantoprazole 40 mg tablet,delayed release (DR/EC) See Rx Instructions .ROUTE .COMPLEX Qty: 60 12RF Dose Instruction: TAKE ONE TABLET BY MOUTH TWICE A DAY Rx Instructions: TAKE ONE TABLET BY MOUTH TWICE A DAY gabapentin 300 mg capsule 600 mg PO TID fluticasone propionate 50 mcg/actuation spray,suspension 2 spray intranasal DAILY Rx Instructions: administer into each nostril acetaminophen 500 mg tablet 1,000 mg PO Q8H PRN (Reason: pain) Qty: 90 3RF Incruse Ellipta 62.5 mcg/actuation blister with device 1 inh INHALATION DAILY Label Comments: INHALE ONE PUFF BY MOUTH EVERY DAY montelukast 10 mg tablet 10 mg PO DAILY Label Comments: TAKE ONE TABLET BY MOUTH EVERY DAY albuterol sulfate [Proventil HFA] 200 PUFF HFA aerosol inhaler 2 puff Inhalation PRN PRN Discharge Instructions Instructions: Urticaria (ED) Additional Instructions: you can continue the benadryl, follow dosing instructions on the packaging you can also take famotidine (brand name pepcid) 20mg twice daily as well if not resolved within a week follow up with your primary care provider if you feel more ill, have difficulty breathing, severe abdominal pain, persistent vomiting or difficulty swallowing liquids return to the emergency department Medical Decision Making 52 yo female with hx of copd, anxiety, who denies new medications or new soaps/detergents that she can think of, comes in with itching rash since 2am this morning. She states she went to bed feeling well and woke up at 2am with itching and a widespread rash she describes as hives. She denies dyspnea, chest pain, abdomen pain n/v, tongue or throat swelling. She has taken benadryl multiple times and loratadine without change in itching so came here. No fevers/chills. arrives stable speaking in full sentences and in no respiratory distress, no stridor or drooling. She is swallowing normally. She has multiple areas of various size patches of mild erythema that are not warm and not tender to touch on the abodmen, chest and back. No mucous membrane lesions, normal size tongue and normal posterior pharynx, no abdominal tenderness, clear lung sounds. Her exam is consistent with urticaria no findings to suggest anaphylxis, will try h2 ziyad famotidine and prednisone and reassess. pt feels much better, urticaria significantly improved andonly has 2-3 patches on her abdomen, still no respiratory or gi symptoms. She feels well enough for d/c, return precautions given Differential Diagnosis Differential Diagnosis: contact dermatitis, urticaria Medical Records Medical records reviewed: Yes I reviewed the patient's medical records. HPI General Mode of arrival: ambulatory . Date/Time Provider Initiated Documentation: 12/29/22 19:01 . Limitations to Documentation: no limitations . Information obtained by: patient . History of Present Illness 52 year old F presents to the emergency department with the chief complaint of itching rash, described as moderate, Patient started experiencing this hour(s) (15) and it has been constant. No relieving factors improve symptom(s), No exacerbating factors reported . Patient notes no other symptoms.; denies chest pain, fever/chills, nausea/vomiting and shortness of breath. Patient did receive the following treatments prior to arrival, none Related Data Home Medications Medication Instructions Recorded Confirmed albuterol sulfate 90 mcg/actuation 2 puff inhalation PRN PRN 02/15/17 12/10/22 aerosol inhaler (Proventil HFA) acetaminophen 500 mg tablet 1,000 mg PO Q8H PRN pain #90 tabs 11/15/19 12/10/22 topiramate 100 mg tablet (Topamax) 100 mg PO BID 12/26/20 12/10/22 montelukast 10 mg tablet 10 mg PO DAILY 05/18/21 12/10/22 umeclidinium 62.5 mcg/actuation 1 inh inhalation DAILY 05/18/21 12/10/22 blister powder for inhalation (Incruse Ellipta) pantoprazole 40 mg tablet,delayed See Rx Instructions .Route 03/01/22 12/10/22 release .COMPLEX #60 tabs fluticasone propionate 50 2 spray intranasal DAILY 11/02/22 12/10/22 mcg/actuation nasal spray,suspension gabapentin 300 mg capsule 600 mg PO TID 11/02/22 12/10/22 prednisone 20 mg tablet 60 mg PO DAILY 4 days #12 tabs 12/29/22 Previous Rx's Medication Instructions Recorded acetaminophen 500 mg tablet 1,000 mg PO Q8H PRN pain #90 tabs 11/15/19 pantoprazole 40 mg tablet,delayed See Rx Instructions .Route 03/01/22 release .COMPLEX #60 tabs prednisone 20 mg tablet 60 mg PO DAILY 4 days #12 tabs 12/29/22 Allergies Allergy/AdvReac Type Severity Reaction Status Date / Time adhesive Allergy Intermediate gets red Verified 12/09/22 10:48 and welts up codeine Allergy Intermediate Itching Unverified 12/09/22 10:48 oxycodone HCl [From Percocet] Allergy Intermediate Anaphylaxsi Unverified 12/09/22 10:48 s morphine Allergy Itching Verified 12/09/22 10:48 cyclobenzaprine AdvReac Headache Unverified 12/09/22 10:48 [From Flexeril] General Stated Complaint: RashLesion CRISTI: 4 Review of Systems All systems reviewed & are unremarkable except as noted in HPI and below Constitutional Constitutional: Denies chills, Denies fever(s) and Denies weakness Cardiovascular Cardiovascular: Denies chest pain and Denies dyspnea Respiratory Respiratory: Denies cough and Denies dyspnea Gastrointestinal Gastrointestinal: Denies abdominal pain, Denies nausea and Denies vomiting Musculoskeletal Musculoskeletal: Denies joint swelling Neurologic Neurologic: Denies weakness PFSH All Active Problems (Updated 12/29/22 @ 20:38 by Akira Guerra MD) Urticaria (Acute) 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 (Acute) Migraine (Chronic) Contact dermatitis (Acute) Headache (Acute) Hand laceration (Acute) Visit for suture removal (Acute) Cellulitis of finger (Acute) COPD (chronic obstructive pulmonary disease) with acute bronchitis (Acute) GERD with esophagitis (Acute) Duodenitis (Acute) Chronic erosive gastritis (Acute) Esophagitis, Emanuel grade A (Acute) Vertigo (Chronic) Diplopia (Acute) Thyroid nodule (Acute) Tobacco abuse (Acute) Atypical migraine (Acute) Migraine headache with aura (Acute) Migraine headache without aura (Acute) Effusion, left knee (Acute) Pain in knee region after total knee replacement (Acute) Atypical chest pain (Acute) Osteoarthritis of left hip joint due to dysplasia (Acute) Left buttock pain (Acute) Left sciatic notch pain (Acute) Abdominal pain (Acute) Papanicolaou smear for cervical cancer screening (Acute) Gross hematuria (Acute) Renal cyst (Acute) History of total left knee replacement (TKR) (Acute 11/14/19) Dr. Brunson Chronic low back pain (Acute) Lumbar degenerative disc disease (Acute) Chronic headache (Acute) Medical History Arthralgia Asthma Chronic pain Cigarette smoker Depression Dyspepsia Family history of colon cancer Hidradenitis suppurativa Hyperthyroidism Intertrigo Left lateral epicondylitis s/p debridement 11/30/18 Malaise and fatigue Migraine Obese Obstructive sleep apnea No CPAP at this time Postmenopausal bleeding resolved Prediabetes PTSD (post-traumatic stress disorder) Syncope Tear of medial meniscus of left knee Aspiration: 04/09/2019; 02/05/19 Depo-Medrol injection: 04/09/2019; 02/05/19 Tendinitis of both rotator cuffs (06/30/18) Thyroid nodule TIA (transient ischemic attack) 06/15 Tobacco use Surgical History Colonoscopy - MAC (02/14/18) EGD - MAC (02/14/18) History of back surgery lower back, 07/2020 History of esophagogastroduodenoscopy (EGD) (~02/09/21) Replacement of total knee joint R Rotator Cuff Repair 2x on R, 1 x on L, pt report 2 on the left side S/P left knee arthroscopy partial medial menisectomy and trochlear chondroplasty DOS: 05/17/19 Aspiration/Injection: 06/15/19 Status post left rotator cuff repair DOS: 11/30/2018 Dr. Brunson corticosteroid injection: 02/21/19 Family History Father Rheumatoid arthritis Brother Rheumatoid arthritis Social History Smoking/Tobacco Use Status: Current-Occasional Tobacco Type: cigarettes Tobacco: How many years used: 25 Smoking risk assessment performed?: Yes Alcohol Intake: current Alcohol Intake frequency: holidays/special occasions only Alcohol type: other Drug use: Occasionally Substance use type: marijuana Current gender identity: female Do you feel safe at home: Yes Do you feel safe in your relationship?: Yes Exam Const General: no acute distress Orientation: alert HENMT Head: normal to inspection Ears: external ears normal General nose exam: external nose normal Mouth: moist mucous membranes Eyes General: appearance normal, both eyes and all related structures Neck Neck: normal visual inspection Resp Effort & Inspection: normal respiratory effort and able to speak in complete sentences Auscultation: clear to auscultation bilaterally Cardio Rate: regular rate Heart Sounds: no murmurs Neuro General: patient alert and patient oriented x3 Extrem General: normal to inspection Psych Mental Status: mental status grossly normal Course Vital Signs Vital signs: Vital Signs Temperature 36.6 C 12/29/22 19:09 Pulse 81 12/29/22 19:09 Respiratory Rate 16 12/29/22 19:09 Blood Pressure 196/92 H 12/29/22 19:09 Pulse Oximetry 98 12/29/22 19:09 Temperature 36.6 C 12/29/22 19:09 Temperature Source Temporal Artery Scan 12/29/22 19:09 Pulse 81 12/29/22 19:09 Respiratory Rate 16 12/29/22 19:09 Blood Pressure 196/92 H 12/29/22 19:09 Blood Pressure Position Sitting 12/29/22 19:09 Pulse Oximetry 98 12/29/22 19:09 Oxygen Delivery Method Room Air 12/29/22 19:09 Oxygen Flow Rate 0 12/29/22 19:09 Pain Level 0 12/29/22 19:09
--- NOTE | 2022-12-29 20:45 | NUR.NOTE ---
pt reports decrease in itching s/p med administration, states ready for discharge
[2022-12-29 20:46] VITALS: BP 121/90; PULSE 74; RESP 18; O2SAT 99
== END 2022-12-29 20:47 | disposition home or self-care (01) ==
PROVIDERS: Emergency Provider Emergency Medicine; PCP Nurse Practitioner Family
DX: L50.8 Other urticaria (principal)
CPT/HCPCS: 99283; 99284; J7512

== ENCOUNTER 2023-01-07 09:40 | Outpatient (REF) | payer OTHER, MEDICAID, SELFPAY ==
[2023-01-07 14:27] LABS: Abs Immature Grans 0.03 10^3/uL (0.0-0.06); Absolute Basophil Count 0.02 10^3/uL (0.0-0.2); Absolute Lymphocyte Count 3.07 10^3/uL (1.2-3.4); Absolute Monocyte Count 0.93 10^3/uL (0.1-0.8); Absolute Neutrophil Count 6.13 10^3/uL (1.2-6.7); Basophils % 0.2; HCT 44.4 % (36.0-46.0); HGB 13.9 g/dL (11.2-15.7); Immature Grans % 0.3; Lymphocytes % 30.2; MCH 28.1 pg (27.0-33.0); MCHC 31.3 % (32.0-36.0); MCV 90 fL (80-95); MPV 10.4 fL (8.0-11.0); Monocytes % 9.1; Neutrophils % 60.2; Platelet Count 296 10^3/uL (130-400); RBC 4.95 10^6/uL (3.93-5.22); RDW 14.3 % (11.7-14.6); WBC 10.18 10^3/uL (4.4-10.8)
[2023-01-07 14:47] LABS: ALT 21 U/L (14-59); AST 19 U/L (15-37); Albumin 3.7 g/dL (3.4-5.0); Alkaline Phosphatase 94 U/L (46-116); Anion Gap 11.4 mmol/L (3-11); BUN 12 mg/dL (7-18); Bilirubin, Total 0.6 mg/dL (0.2-1.0); CO2 21.6 mmol/L (21.0-32.0); Calcium 9.2 mg/dL (8.5-10.1); Chloride 104 mmol/L (98-107); Estimated GFR 67.78 (mL/min/1.73m2); Glucose 94 mg/dL (74-106); Potassium 3.9 mmol/L (3.5-5.1); Sodium 137 mmol/L (136-145); Total Protein 7.7 g/dL (6.4-8.2)
[2023-01-07 15:52] LABS: Hemoglobin A1C 5.9 % (<5.7)
== END 2023-01-07 09:41 | disposition home or self-care (01) ==
LOC: NCHCN 09:40
PROVIDERS: PCP Nurse Practitioner Family; Visit Provider Nurse Practitioner Family
DX: R73.03 Prediabetes (principal); R10.13 Epigastric pain; E04.1 Nontoxic single thyroid nodule; E78.5 Hyperlipidemia, unspecified; K76.0 Fatty (change of) liver, not elsewhere classified; K11.7 Disturbances of salivary secretion; K30 Functional dyspepsia
CPT/HCPCS: 80053; 83036; 85025

== ENCOUNTER 2023-01-13 20:55 | Emergency (ER) | payer OTHER, MEDICAID, SELFPAY ==
[2023-01-13] VITALS (19 sets, daily range): BP systolic 101–131; BP diastolic 65–92; PULSE 75–91; RESP 14–31; TEMP 37; O2SAT 95–99
--- NOTE | 2023-01-13 20:45 | RT.EKG_ITS ---
APPROVED REPORT Exam: Resting ECG Reason for Exam: chest pain Patient Location: E HR:97 bpm ECG Measurements Heart Rate 97 AXIS AR 175 P 42 QRSd 78 QRS 36 QT 335 T 22 QTc 425 Conclusion Sinus rhythm...normal P axis, V-rate 60- 99 Low voltage, precordial leads...precordial leads <1.0mV. Sinus. Normal axis. No STEMI. I have reviewed and interpreted ECG and agree with software generated interpretation.
[2023-01-13 21:41] LABS: Abs Immature Grans 0.03 10^3/uL (0.0-0.06); Absolute Basophil Count 0.04 10^3/uL (0.0-0.2); Absolute Lymphocyte Count 4.23 10^3/uL (1.2-3.4); Absolute Monocyte Count 1.04 10^3/uL (0.1-0.8); Basophils % 0.3; HCT 42.4 % (36.0-46.0); HGB 13.3 g/dL (11.2-15.7); Immature Grans % 0.3; Lymphocytes % 35.9; MCH 28.2 pg (27.0-33.0); MCHC 31.4 % (32.0-36.0); MCV 90 fL (80-95); MPV 9.9 fL (8.0-11.0); Monocytes % 8.8; Neutrophils % 54.7; Platelet Count 316 10^3/uL (130-400); RBC 4.72 10^6/uL (3.93-5.22); RDW 14.3 % (11.7-14.6); RDW-SD 47.2 fL; WBC 11.77 10^3/uL (4.4-10.8)
[2023-01-13 21:42] LABS: Absolute Neutrophil Count 6.44 10^3/uL (1.2-6.7)
--- NOTE | 2023-01-13 21:50 | ED.GENADUL_ITS ---
Discharge Plan Disposition Patient Disposition: Home Discharge Details Clinical Impression: Chest pain, Back pain Primary Care Provider: Lucy Courtney ED Provider: Wendi Watts Home Meds and New Rx's Prescriptions: New sucralfate [Carafate] 1 gram tablet 1 gm PO QACHS Qty: 14 0RF Continued topiramate [Topamax] 100 mg tablet 100 mg PO BID pantoprazole 40 mg tablet,delayed release (DR/EC) See Rx Instructions .ROUTE .COMPLEX Qty: 60 12RF Dose Instruction: TAKE ONE TABLET BY MOUTH TWICE A DAY Rx Instructions: TAKE ONE TABLET BY MOUTH TWICE A DAY gabapentin 300 mg capsule 600 mg PO TID fluticasone propionate 50 mcg/actuation spray,suspension 2 spray intranasal DAILY Rx Instructions: administer into each nostril famotidine 20 mg tablet 20 mg PO DAILY acetaminophen 500 mg tablet 1,000 mg PO Q8H PRN (Reason: pain) Qty: 90 3RF Incruse Ellipta 62.5 mcg/actuation blister with device 1 inh INHALATION DAILY Patient Comments: INHALE ONE PUFF BY MOUTH EVERY DAY montelukast 10 mg tablet 10 mg PO DAILY Patient Comments: TAKE ONE TABLET BY MOUTH EVERY DAY albuterol sulfate [Proventil HFA] 200 PUFF HFA aerosol inhaler 2 puff Inhalation PRN PRN Discharge Instructions Instructions: Chest Pain (ED), Back Pain (ED) Additional Instructions: Your blood tests, EKGs and imaging today are reassuring and show no evidence of acute concerning findings. Your Covid, influenza and RSV tests today were negative. Your lipase blood test which is a pancreatic enzyme was mildly elevated. It is recommended that you follow-up with your regular doctor for recheck of this test if indicated. Your pancreas was reported to look normal on your CT scan today. Follow-up with your scheduled appointment with Dr. Bae next week. A prescription for Carafate has been sent electronically to your pharmacy to take as needed and directed for chest, abdominal or back pain. Continue to take your Prilosec as directed. Follow-up with your primary care doctor in 1 week. Return to the emergency department with any worsening or new concerning symptoms. Referrals: Tanna Bae DO [OSTEOPATHIC DOCTOR] - Discharge Data Discharge Physician: Wendi Watts Medical Decision Making 2129 -- 52-year-old female with a history of obesity, hypertension, asthma, GERD, TIA, obstructive sleep apnea, migraine, COPD, anxiety, depression who presents for intermittent sharp chest pain with radiation to her neck and back today. EKG on arrival notes a rate of 97, sinus, normal axis and no STEMI and nondiagnostic. Her vitals are within normal limits. She is dry heaving during my evaluation. Lungs are clear throughout. Abdomen soft and nontender. Suspect GI etiology. Also consider dissection however she denies any tearing or ripping sensation, ACS, PE. Will obtain screening labs, CTA neck and thorax abdomen pelvis and give IV Zofran, IV Tylenol and IV Pepcid and reassess. 0005 --labs and imaging reviewed. White blood cell count 11.77. Troponin negative. Lipase minimally elevated at 130. FLUVID negative. CTA neck, thorax, abdomen and pelvis negative for acute findings. There was a thyroid nodule noted and recommend outpatient thyroid ultrasound. Patient reassessed and she states she is tired and would like to go home. She does endorse that she still has chest and back pain. She is agreeable to stay for repeat troponin. Will give GI cocktail and Pepcid and reassess. 0020 --repeat troponin negative. Repeat EKG negative. Patient reassessed and her symptoms are slightly improved. Patient feels comfortable going home. She states she has had GERD in the past which she states her PCP had attributed to steroids. Patient states she takes Prilosec twice daily. We will send a prescription for Carafate electronically to her pharmacy. She is advised to call her PCP tomorrow for follow-up within the next week and for potential recheck of her lipase. She states she has an appointment with Dr. Bae next Tuesday. Usual and customary return precautions given prior to discharge. Medical Records Medical records reviewed: Yes I reviewed the patient's medical records. Imaging Data Radiologic Study: Radiologist's impression: CTA Neck With Contrast Exam date and time: 01/13/2023 10:55 PM Age: 52 years old Clinical indication: Other: Chest pain radiating to neck, R/O dissection TECHNIQUE: Imaging protocol: Computed tomographic angiography of the neck with contrast. 3D rendering (Not supervised by radiologist): MIP and/or 3D reconstructed images were created by the technologist. Contrast material: OMNIPAQUE 350; Contrast volume: 85 ml; Contrast route: INTRAVENOUS (IV);? COMPARISON: CT BRAIN NECK CTA 06/09/2019 10:13 PM FINDINGS: Right common carotid artery: No significant stenosis. No dissection or occlusion. Right internal carotid artery: Extracranial segment is patent with no significant stenosis (0% stenosis by NASCET criteria). No dissection or occlusion. Right external carotid artery: No occlusion or significant stenosis. Left common carotid artery: No significant stenosis. No dissection or occlusion. Left internal carotid artery: Extracranial segment is patent with no significant stenosis (0% stenosis by NASCET criteria). No dissection or occlusion. Left external carotid artery: No occlusion or significant stenosis. Right vertebral artery: No significant stenosis. No dissection or occlusion. Left vertebral artery: No significant stenosis. No dissection or occlusion. Thyroid: Partially calcified 2.6 cm heterogeneous nodule in the left lobe of the thyroid gland. Soft tissues: Unremarkable. Bones/joints: No acute fracture. IMPRESSION: 1. No occlusion or significant stenosis in the arteries of the neck. 2. Partially calcified 2.6 cm heterogeneous nodule in the left lobe of the thyroid gland. Recommend further evaluation with nonemergent thyroid ultrasound. CTA Chest With Contrast CTA Abdomen and Pelvis With Contrast Exam date and time: 01/13/2023 11:04 PM Age: 52 years old Clinical indication: Other: Chest pain radiating to neck, R/O dissection; Abdominal pain; Other: Chest pain radiating to back, nausea TECHNIQUE: Imaging protocol: Computed tomographic angiography of the chest with contrast. Computed tomographic angiography of the abdomen and pelvis with contrast. 3D rendering (Not supervised by radiologist): MIP and/or 3D reconstructed images were created by the technologist. Contrast material: OMNIPAQUE 350; Contrast volume: 70 ml; Contrast route: INTRAVENOUS (IV);? COMPARISON: CT CHEST PE CTA 12/26/2019 2:20 PM FINDINGS: VASCULATURE: Pulmonary arteries: The pulmonary arteries are normal in caliber. No evidence of acute pulmonary embolism. Aorta: The aorta is normal without evidence of aneurysmal dilatation, dissection or occlusive disease. The abdominal aorta is widely patent without evidence of significant occlusive or aneurysmal disease. Celiac trunk and mesenteric arteries: The celiac artery is widely patent without evidence of occlusive or aneurysmal disease. Superior mesenteric artery is widely patent without evidence of occlusive or aneurysmal disease.The inferior mesenteric artery is widely patent without evidence of occlusive or aneurysmal disease. Renal arteries: Single renal artery supplies the right kidney, is widely patent, without evidence of significant occlusive or aneurysmal disease. Single renal artery supplies the left kidney, is widely patent, without evidence of significant occlusive or aneurysmal disease. Right iliac arteries: The right common iliac artery, right internal iliac artery and right external iliac arteries are widely patent without evidence of significant occlusive or aneurysmal disease. Right femoral/popliteal arteries: The right common femoral artery is widely patent without evidence of significant occlusive or aneurysmal disease. The proximal right deep and superficial femoral arteries are widely patent without evidence of significant occlusive or aneurysmal disease. Left iliac arteries: The left common iliac artery, left internal iliac artery and left external iliac arteries are widely patent without evidence of significant occlusive or aneurysmal disease. Left femoral/popliteal arteries: The left common femoral artery is widely patent without evidence of significant occlusive or aneurysmal disease. The proximal left deep and superficial femoral arteries are widely patent without evidence of significant occlusive or aneurysmal disease. Thyroid: Irregular low-attenuation left thyroid mass present. CHEST: Lungs: There is no evidence of focal pulmonary consolidation. No evidence of pulmonary parenchymal inflammatory changes. There is no evidence of pulmonary masses. Pleural spaces: There is no evidence of pneumothorax. There are no pleural effusions present. There is no evidence of pneumothorax. There are no pleural effusions present. Heart: The cardiac structures are normal. The right ventricular to left ventricular ratio is normal measuring approximately 0.95. The cardiac structures are normal. ABDOMEN AND PELVIS: Liver: There is a diffuse decrease in hepatic parenchymal density, consistent with mild fatty infiltration. The liver is enlarged measuring 17 cm. There are no focal liver lesions present. There is no evidence of intrahepatic or extrahepatic biliary ductal dilation. Gallbladder and bile ducts: The gallbladder is contracted but otherwise normal. There is no cholelitiasis, wall thickening or pericholecystic fluid to suggest cholecystitis. Pancreas: The pancreas is normal. Spleen: The spleen is normal. Adrenal glands: The adrenal glands are normal. Kidneys and ureters: Bilateral peripelvic cysts present. The kidneys are otherwise normal. Stomach and bowel: There is no evidence of intestinal obstruction. No diverticulitis is present. Appendix: A normal appendix is identified. There is no evidence of distention or periappendiceal inflammation to suggest appendicitis. Intraperitoneal space: There is no free intraperitoneal air. There is no evidence of free intraperitoneal or pelvic fluid. There are no soft tissue masses or fluid collections. Urinary bladder: The bladder is normal. Reproductive: The uterus is normal. The ovaries are normal. Lymph nodes: There is no evidence of lymphadenopathy. Bones/joints: The spine, sternum, ribs, and pectoral girdles show no evidence of acute abnormality. Patient is status post posterior fusion and laminectomies. Alignment of the lumbar spine remains normal. Disc space narrowing with central spinal stenosis present at L3-L4. The skeletal structures show no evidence of fracture or other acute processes. Soft tissues: There are no soft tissue masses or fluid collections. The upper abdominal viscera are unremarkable. The extra-abdominal soft tissues are normal. Other findings: The mediastinal structures are normal. The portal venous system visualized is unremarkable. The venous system visualized is unremarkable. IMPRESSION: 1. No significant arterial occlusive or aneurysmal disease. 2. No evidence of acute pulmonary embolism. 3. Irregular low-attenuation left thyroid mass present. 4. Patient is status post posterior fusion and laminectomies. Alignment of the lumbar spine remains normal. Disc space narrowing with central spinal stenosis present at L3-L4. 5. Hepatic steatosis with hepatomegaly Lab Data Lab results reviewed: Yes I reviewed the patient's lab results. Labs: Laboratory Tests Range/Units 01/13/23 01/13/23 01/13/23 21:05 21:30 21:30 WBC (4.4-10.8) 10^3/uL 11.77 H RBC (3.93-5.22) 10^6/uL 4.72 Hgb (11.2-15.7) g/dL 13.3 Hct (36.0-46.0) % 42.4 MCV (80-95) fL 90 MCH (27.0-33.0) pg 28.2 MCHC (32.0-36.0) % 31.4 L RDW (11.7-14.6) % 14.3 Plt Count (130-400) 10^3/uL 316 MPV (8.0-11.0) fL 9.9 Immature Gran % 0.3 Neutrophils % 54.7 Lymphocytes % 35.9 Monocytes % 8.8 Eosinophils % 0.0 Basophils % 0.3 Nucleated RBC % (0.0-0.3) % 0.0 Absolute Neutrophils (1.2-6.7) 10^3/uL 6.44 Absolute Lymphocytes (1.2-3.4) 10^3/uL 4.23 H Absolute Monocytes (0.1-0.8) 10^3/uL 1.04 H Absolute Eosinophils (0.0-0.7) 10^3/uL 0.00 Absolute Basophils (0.0-0.2) 10^3/uL 0.04 Sodium (136-145) mmol/L 141 Potassium (3.5-5.1) mmol/L 3.4 L Chloride (98-107) mmol/L 106 Carbon Dioxide (21.0-32.0) mmol/L 22.2 Anion Gap (3-11) mmol/L 12.8 H BUN (7-18) mg/dL 21 H Creatinine (0.55-1.02) mg/dL 1.2 H Est GFR (CKD-EPI 2020) (mL/min/1.73m2) 54.46 Glucose (74-106) mg/dL 100 Calcium (8.5-10.1) mg/dL 8.8 Magnesium (1.8-2.4) mg/dL 1.8 Total Bilirubin (0.2-1.0) mg/dL 0.5 AST (15-37) U/L 14 L ALT (14-59) U/L 22 Alkaline Phosphatase (46-116) U/L 96 Troponin I (<or=60) ng/L < 50 Total Protein (6.4-8.2) g/dL 7.6 Albumin (3.4-5.0) g/dL 3.6 Lipase (16-77) U/L 130 H COVID-19 Source SARS-CoV-2 (PCR) (Negative) Influenza Type A (PCR) (Negative) Influenza Type B (PCR) (Negative) RSV (PCR) (Negative) Range/Units 01/13/23 22:12 WBC (4.4-10.8) 10^3/uL RBC (3.93-5.22) 10^6/uL Hgb (11.2-15.7) g/dL Hct (36.0-46.0) % MCV (80-95) fL MCH (27.0-33.0) pg MCHC (32.0-36.0) % RDW (11.7-14.6) % Plt Count (130-400) 10^3/uL MPV (8.0-11.0) fL Immature Gran % Neutrophils % Lymphocytes % Monocytes % Eosinophils % Basophils % Nucleated RBC % (0.0-0.3) % Absolute Neutrophils (1.2-6.7) 10^3/uL Absolute Lymphocytes (1.2-3.4) 10^3/uL Absolute Monocytes (0.1-0.8) 10^3/uL Absolute Eosinophils (0.0-0.7) 10^3/uL Absolute Basophils (0.0-0.2) 10^3/uL Sodium (136-145) mmol/L Potassium (3.5-5.1) mmol/L Chloride (98-107) mmol/L Carbon Dioxide (21.0-32.0) mmol/L Anion Gap (3-11) mmol/L BUN (7-18) mg/dL Creatinine (0.55-1.02) mg/dL Est GFR (CKD-EPI 2020) (mL/min/1.73m2) Glucose (74-106) mg/dL Calcium (8.5-10.1) mg/dL Magnesium (1.8-2.4) mg/dL Total Bilirubin (0.2-1.0) mg/dL AST (15-37) U/L ALT (14-59) U/L Alkaline Phosphatase (46-116) U/L Troponin I (<or=60) ng/L Total Protein (6.4-8.2) g/dL Albumin (3.4-5.0) g/dL Lipase (16-77) U/L COVID-19 Source Nasopharynx SARS-CoV-2 (PCR) (Negative) Influenza Type A (PCR) (Negative) Negative Influenza Type B (PCR) (Negative) Negative RSV (PCR) (Negative) Negative ECG Data Attestation: I personally reviewed and interpreted this ECG (s) as follows: Interpretation: #1 -- rate of 97, sinus, normal axis, no stemi. #2 -- rate of 73, sinus, normal axis, no stemi. HPI General Mode of arrival: ambulatory . Date/Time Provider Initiated Documentation: 01/13/23 21:29 . Limitations to Documentation: no limitations . Information obtained by: patient . HPI Narrative: Patient is a 52-year-old female with history of obesity, hypertension, GERD, COPD, anxiety, vertigo, migraine, sleep apnea, TIA, tubal ligation who presents for chest and back pain today. 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 She states the pain has been intermittent, sharp and shooting occurring at random. She states the pain is now also radiating to the right side of her neck. She states the pain has been 10/10 at its worst but is currently 4/10. She states she did Tylenol at 2 PM without relief. She admits to nausea and one episode of vomiting which was mainly white in route. She also admits to intermittent shortness of breath that occurs with the chest pain but denies any sore throat, fever, coughing, dizziness, abdominal pain or diarrhea. She denies any recent travel, recent surgery or leg pain or swelling. Patient states she has been having issues with her esophagus and is scheduled to have a procedure with Dr. Bae on Tuesday. She states she is unsure of any diagnosis or the name of the procedure. Related Data Home Medications Medication Instructions Recorded Confirmed albuterol sulfate 90 mcg/actuation 2 puff inhalation PRN PRN 02/15/17 01/13/23 aerosol inhaler (Proventil HFA) acetaminophen 500 mg tablet 1,000 mg PO Q8H PRN pain #90 tabs 11/15/19 01/13/23 topiramate 100 mg tablet (Topamax) 100 mg PO BID 12/26/20 01/13/23 montelukast 10 mg tablet 10 mg PO DAILY 05/18/21 01/13/23 umeclidinium 62.5 mcg/actuation 1 inh inhalation DAILY 05/18/21 12/10/22 blister powder for inhalation (Incruse Ellipta) pantoprazole 40 mg tablet,delayed See Rx Instructions .Route 03/01/22 01/13/23 release .COMPLEX #60 tabs fluticasone propionate 50 2 spray intranasal DAILY 11/02/22 01/13/23 mcg/actuation nasal spray,suspension gabapentin 300 mg capsule 600 mg PO TID 11/02/22 01/13/23 famotidine 20 mg tablet 20 mg PO DAILY 01/12/23 01/13/23 sucralfate 1 gram tablet (Carafate) 1 gm PO QACHS #14 tabs 01/14/23 Previous Rx's Medication Instructions Recorded acetaminophen 500 mg tablet 1,000 mg PO Q8H PRN pain #90 tabs 11/15/19 pantoprazole 40 mg tablet,delayed See Rx Instructions .Route 03/01/22 release .COMPLEX #60 tabs sucralfate 1 gram tablet (Carafate) 1 gm PO QACHS #14 tabs 01/14/23 Allergies Allergy/AdvReac Type Severity Reaction Status Date / Time adhesive Allergy Intermediate gets red Verified 01/13/23 21:06 and welts up codeine Allergy Intermediate Itching Unverified 01/13/23 21:06 oxycodone HCl [From Percocet] Allergy Intermediate Anaphylaxsi Unverified 12/29 05/20 21:06 s morphine Allergy Itching Verified 01/13/23 21:06 cyclobenzaprine AdvReac Headache Unverified 01/13/23 21:06 [From Flexeril] General Stated Complaint: Chest Pain CRISTI: 2 Review of Systems All systems reviewed & are unremarkable except as noted in HPI and below Constitutional Constitutional: Reports as per HPI, Denies chills, Reports fatigue, Denies fever(s) and Reports weakness Eyes Eyes: Denies blurry vision ENT Ears, Nose, Mouth, and Throat: Denies dizziness, Denies sore throat and Denies throat swelling Cardiovascular Cardiovascular: Reports chest pain and Reports dyspnea Respiratory Respiratory: Denies cough and Reports dyspnea Gastrointestinal Gastrointestinal: Denies abdominal pain, Denies diarrhea, Reports nausea and Reports vomiting Genitourinary Genitourinary: Denies hematuria and Denies dysuria Musculoskeletal Musculoskeletal: Reports back pain and Denies numbness Integumentary/Breasts Skin/Breast: Denies lesions and Denies rash Neurologic Neurologic: Denies dizziness, Denies localized weakness, Denies numbness and Reports weakness Endocrine Endocrine: Reports fatigue Allergic/Immunologic Allergic/Immunologic: Denies throat swelling PFSH All Active Problems (Updated 01/14/23 @ 01:27 by Wendi Watts DO) Chest pain (Acute) Back pain (Acute) Urticaria (Acute) 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 (Acute) Migraine (Chronic) Contact dermatitis (Acute) Headache (Acute) Hand laceration (Acute) Visit for suture removal (Acute) Cellulitis of finger (Acute) COPD (chronic obstructive pulmonary disease) with acute bronchitis (Acute) GERD with esophagitis (Acute) Duodenitis (Acute) Chronic erosive gastritis (Acute) Esophagitis, [place] grade A (Acute) Vertigo (Chronic) Diplopia (Acute) Thyroid nodule (Acute) Tobacco abuse (Acute) Atypical migraine (Acute) Migraine headache with aura (Acute) Migraine headache without aura (Acute) Effusion, left knee (Acute) Pain in knee region after total knee replacement (Acute) Atypical chest pain (Acute) Osteoarthritis of left hip joint due to dysplasia (Acute) Left buttock pain (Acute) Left sciatic notch pain (Acute) Abdominal pain (Acute) Papanicolaou smear for cervical cancer screening (Acute) Gross hematuria (Acute) Renal cyst (Acute) History of total left knee replacement (TKR) (Acute 11/14/19) Dr. Brunson Chronic low back pain (Acute) Lumbar degenerative disc disease (Acute) Chronic headache (Acute) Medical History Arthralgia Asthma Chronic pain Cigarette smoker Depression Dyspepsia Family history of breast cancer Family history of colon cancer Hidradenitis suppurativa Hyperthyroidism Intertrigo Left lateral epicondylitis s/p debridement 11/30/18 Malaise and fatigue Migraine Obese Obstructive sleep apnea No CPAP at this time Postmenopausal bleeding resolved Prediabetes PTSD (post-traumatic stress disorder) Syncope Tear of medial meniscus of left knee Aspiration: 04/09/2019; 02/05/19 Depo-Medrol injection: 04/09/2019; 02/05/19 Tendinitis of both rotator cuffs (06/30/18) Thyroid nodule TIA (transient ischemic attack) 06/15 Tobacco use Surgical History Colonoscopy - MAC (02/14/18) EGD - MAC (02/14/18) History of back surgery lower back, 07/2020 History of esophagogastroduodenoscopy (EGD) (~02/09/21) Replacement of total knee joint R Rotator Cuff Repair 2x on R, 1 x on L, pt report 2 on the left side S/P left knee arthroscopy partial medial menisectomy and trochlear chondroplasty DOS: 05/17/19 Aspiration/Injection: 06/15/19 Status post left rotator cuff repair DOS: 11/30/2018 Dr. Brunson corticosteroid injection: 02/21/19 Family History Father Rheumatoid arthritis Brother Rheumatoid arthritis Social History Smoking/Tobacco Use Status: Current-Occasional Tobacco Type: cigarettes Tobacco: How many years used: 25 Smoking risk assessment performed?: Yes Alcohol Intake: current Alcohol Intake frequency: holidays/special occasions only Alcohol type: other Drug use: Occasionally Substance use type: marijuana Current gender identity: female Do you feel safe at home: Yes Do you feel safe in your relationship?: Yes Exam Const General: cooperative and no acute distress Orientation: alert, awake and oriented x3 HENMT Head: normal to inspection Face and sinus: normal facial exam Eyes General: appearance normal, both eyes and all related structures Pupils: PERRL EOM: EOM intact bilaterally Neck Neck: normal visual inspection and No submandibular swelling Lymphatic: no lymphadenopathy noted Chest Chest: normal inspection of the chest and no tenderness Resp Effort & Inspection: normal respiratory effort and able to speak in complete sentences Auscultation: clear to auscultation bilaterally Cardio Rate: regular rate Rhythm: regular rhythm GI Inspection: normal to inspection Palpation: soft, not firm, not rigid and nontender Auscultation: hypoactive bowel sounds Back/Spine/Pelvis Thoracic/Lumbar Spine: thoracic and lumbar spine normal to inspection Skin General skin exam: no rashes or lesions noted Neuro General: patient alert, patient awake and patient oriented x3 Cognition: normal cognition Speech: speech normal Motor: muscle tone normal throughout Sensory Exam: no sensory deficits noted Extrem General: normal to inspection, full ROM, capillary refill normal, no calf tenderness bilaterally and no edema Psych Appearance: grossly normal Mental Status: mental status grossly normal Speech and Movement: speech and movement normal Affect: normal affect Course Vital Signs Vital signs: Vital Signs Temperature 98.6 F 01/13/23 21:02 Pulse 91 H 01/13/23 21:02 Respiratory Rate 18 01/13/23 21:02 Blood Pressure 131/92 H 01/13/23 21:02 Pulse Oximetry 97 01/13/23 21:02 Temperature 98.6 F 01/13/23 21:02 Temperature Source Temporal Artery Scan 01/13/23 21:02 Pulse 91 H 01/13/23 21:02 Respiratory Rate 14 01/13/23 21:16 Respiratory Effort Normal 01/13/23 21:16 Respiratory Depth Normal 01/13/23 21:16 Respiratory Pattern Normal 01/13/23 21:16 Blood Pressure 131/92 H 01/13/23 21:02 Blood Pressure Position Supine 01/13/23 21:02 Pulse Oximetry 97 01/13/23 21:02 Oxygen Delivery Method Room Air 01/13/23 21:02 Oxygen Flow Rate 0 01/13/23 21:02 Pain Level 8 01/13/23 21:02 Lab/Test Results Lab/Test Results: Laboratory Tests Range/Units 01/13/23 21:30 WBC (4.4-10.8) 10^3/uL 11.77 H RBC (3.93-5.22) 10^6/uL 4.72 Hgb (11.2-15.7) g/dL 13.3 Hct (36.0-46.0) % 42.4 MCV (80-95) fL 90 MCH (27.0-33.0) pg 28.2 MCHC (32.0-36.0) % 31.4 L RDW (11.7-14.6) % 14.3 Plt Count (130-400) 10^3/uL 316 MPV (8.0-11.0) fL 9.9 Immature Gran % 0.3 Neutrophils % 54.7 Lymphocytes % 35.9 Monocytes % 8.8 Eosinophils % 0.0 Basophils % 0.3 Nucleated RBC % (0.0-0.3) % 0.0 Absolute Neutrophils (1.2-6.7) 10^3/uL 6.44 Absolute Lymphocytes (1.2-3.4) 10^3/uL 4.23 H Absolute Monocytes (0.1-0.8) 10^3/uL 1.04 H Absolute Eosinophils (0.0-0.7) 10^3/uL 0.00 Absolute Basophils (0.0-0.2) 10^3/uL 0.04
[2023-01-13 21:56] LABS: Lipase 130 U/L (16-77)
[2023-01-13 22:03] LABS: ALT 22 U/L (14-59); AST 14 U/L (15-37); Albumin 3.6 g/dL (3.4-5.0); Alkaline Phosphatase 96 U/L (46-116); Anion Gap 12.8 mmol/L (3-11); BUN 21 mg/dL (7-18); Bilirubin, Total 0.5 mg/dL (0.2-1.0); CO2 22.2 mmol/L (21.0-32.0); CREATININE 1.2 mg/dL (0.55-1.02); Calcium 8.8 mg/dL (8.5-10.1); Chloride 106 mmol/L (98-107); Estimated GFR 54.46 (mL/min/1.73m2); Glucose 100 mg/dL (74-106); Magnesium 1.8 mg/dL (1.8-2.4); Potassium 3.4 mmol/L (3.5-5.1); Sodium 141 mmol/L (136-145); Total Protein 7.6 g/dL (6.4-8.2); Troponin I < 50 ng/L (<or=60)
[2023-01-13] MEDS: Famotidine 20 MG/2 ML VIAL IVP (22:03)
[2023-01-13] MEDS: Ondansetron 4 MG/2 ML VIAL IVP (22:03)
[2023-01-13] MEDS: ACETAMINOPHEN 1,000 MG/100 ML BTL 400 MG IVPB (22:04)
[2023-01-13] MEDS: Normal Saline 1,000 ML 1000 ML IV (22:31)
--- NOTE | 2023-01-13 22:45 | DI.CT_ITS ---
Exam(s) CT CAROTID NECK CTA EXAM: CT CAROTID NECK CTA CLINICAL HISTORY: chest pain radiating to neck, r/o dissection. TECHNIQUE: Imaging Protocol: Axial CT angiography was performed with multi-slice acquisition and mul ti-planar and/or 3D reconstructions. CONTRAST MATERIAL: Intravenous: Omnipaque 350 Contrast volume:85 ml COMPARISON: US US thyroid from 04/09/[address] BRAIN NECK CTA from 06/09/[address] ABDOMEN PELVIS W from 09/02/2022 FINDINGS: Common Carotid: Right: No dissection, occlusion or significant stenosis. Left: No dissection, occlusion or significant stenosis. External Carotid: Right: No dissection, occlusion or significant stenosis. Left: No dissection, occlusion or significant stenosis. Internal Carotid: Right: No dissection, occlusion or significant stenosis. Left: No dissection, occlusion or significant stenosis. Vertebral Artery: Right: No dissection, occlusion or significant stenosis. Left: No dissection, occlusion or significant stenosis. Basilar Artery: No aneurysm, occlusion or significant stenosis. Lung Apices: Normal. Bones: Mild degenerative changes C5-6 C6-7. Soft Tissues: 3 nodule lower pole left lobe of the thyroid again noted. Patient had ultrasound in . This is grossly stable since that time. IMPRESSION: Normal CTA of the neck. Stable nodule lower pole left lobe of the thyroid. RADIATION DOSE DELIVERED: 312.88mGy.cm Total DLP DATA REPOSITORY: All CT scans at this facility are submitted to the National Radiology Data Registry (NRDR) Dose Index Registry (DIR) with the [employer] (ACR). RADIATION OPTIMIZATION: All CT scans at this facility use at least one of these dose optimization te chniques: automated exposure control; mA and/or kV adjustment per patient size (includes targeted exa ms where dose is matched to clinical indication); or iterative reconstruction.
--- NOTE | 2023-01-13 22:45 | DI.CT_ITS ---
Exam(s) CT THORAX ABD/PEL CTA EXAM: CT THORAX ABD/PEL CTA CLINICAL HISTORY: chest pain radiating to back, nausea. TECHNIQUE: Imaging Protocol: Axial CT angiography was performed with multi-slice acquisition and mu lti-planar and/or 3D reconstructions. CONTRAST MATERIAL: Intravenous: Omnipaque 350 Contrast volume:70 ml COMPARISON: CT CT CAROTID NECK CTA from 01/13/2023 FINDINGS: CHEST: Pulmonary Arteries: No evidence of filling defect to suggest pulmonary emboli. Tracheobronchial tree: Patent where visualized. Mediastinum and Margareth: No dominant adenopathy or fluid collection. Pulmonary parenchyma: No consolidation or dominant measurable mass. No architectural distortion. Pleura: No effusion or pneumothorax. Heart: The heart is not dilated. Mild coronary artery calcifications are seen versus artifact.. Aorta: Thoracic aorta non-dilated. No significant atherosclerotic changes. No evidence of dissection . Bones: degenerative changes in the spine. Tubes, Catheters, and Lines: None ABDOMEN: Liver: Mild to moderate fatty infiltration.. No measurable mass. Portal, Superior Mesenteric, and Splenic Veins: Unremarkable. Gallbladder and Biliary Tract: Gallbladder contracted. No radiodense calculus or dilation. Pancreas: Normal density, no abnormal calcifications or inflammatory process. Spleen: Normal. Adrenals: No masses seen. Kidneys: Normal size, contour and axis. No radiodense stones or obstructive uropathy. Bilateral renal cysts.. Abdominal Aorta and branch vessels: Abdominal portion non-dilated. No significant atherosclerotic kary nges. Branch vessels patent. No stenosis. Bowel: No obstruction or bowel wall thickening. Appendix is unremarkable. Normal quantity of stool. Peritoneal Cavity: No ascites, collection or mesenteric inflammatory response. Lymph Nodes: Within normal limits. Bones: Hardware lower lumbar spine. Degenerative disc changes at L3-4. Soft Tissues: Unremarkable. PELVIS: Bladder: Symmetric distention, no gross wall thickening. Reproductive Organs: Unremarkable as visualized. Lymph Nodes: Within normal limits. Bones: Within normal limits. Vasculature: No significant atherosclerotic changes. Vessels patent. IMPRESSION: 1. No evidence of pulmonary embolism. No significant atherosclerotic changes. No evidence of dissec tion. 2. No acute abdominal or pelvic process. No significant atherosclerotic changes. Vessels are patent . No evidence of dissection. RADIATION DOSE DELIVERED: 1,242.89mGy.cm Total DLP DATA REPOSITORY: All CT scans at this facility are submitted to the National Radiology Data Registry (NRDR) Dose Index Registry (DIR) with the [employer] (ACR). RADIATION OPTIMIZATION: All CT scans at this facility use at least one of these dose optimization te chniques: automated exposure control; mA and/or kV adjustment per patient size (includes targeted exa ms where dose is matched to clinical indication); or iterative reconstruction.
[2023-01-13] MEDS: Normal Saline - Diluent 50 ML VIAL IV (22:57)
[2023-01-13 22:58] LABS: Influenza A PCR Negative (Negative); Influenza B PCR Negative (Negative); RSV PCR Negative (Negative)
[2023-01-13] MEDS: Omnipaque 350 MG/ML 100 ML BTL IJ (22:59)
[2023-01-13 23:00] LABS: Source Nasopharynx
[2023-01-13] MEDS: Omnipaque 350 MG/ML 50 ML BTL IJ (23:03)
--- NOTE | 2023-01-13 23:34 | DI.VRAD_ITS ---
PROCEDURE INFORMATION: Exam: CTA Neck With Contrast Exam date and time: 01/13/2023 10:55 PM Age: 52 years old Clinical indication: Other: Chest pain radiating to neck, R/O dissection TECHNIQUE: Imaging protocol: Computed tomographic angiography of the neck with contrast. 3D rendering (Not supervised by radiologist): MIP and/or 3D reconstructed images were created by the technologist. Contrast material: OMNIPAQUE 350; Contrast volume: 85 ml; Contrast route: INTRAVENOUS (IV); COMPARISON: CT BRAIN NECK CTA 06/09/2019 10:13 PM FINDINGS: Right common carotid artery: No significant stenosis. No dissection or occlusion. Right internal carotid artery: Extracranial segment is patent with no significant stenosis (0% stenosis by NASCET criteria). No dissection or occlusion. Right external carotid artery: No occlusion or significant stenosis. Left common carotid artery: No significant stenosis. No dissection or occlusion. Left internal carotid artery: Extracranial segment is patent with no significant stenosis (0% stenosis by NASCET criteria). No dissection or occlusion. Left external carotid artery: No occlusion or significant stenosis. Right vertebral artery: No significant stenosis. No dissection or occlusion. Left vertebral artery: No significant stenosis. No dissection or occlusion. Thyroid: Partially calcified 2.6 cm heterogeneous nodule in the left lobe of the thyroid gland. Soft tissues: Unremarkable. Bones/joints: No acute fracture. IMPRESSION: 1. No occlusion or significant stenosis in the arteries of the neck. 2. Partially calcified 2.6 cm heterogeneous nodule in the left lobe of the thyroid gland. Recommend further evaluation with nonemergent thyroid ultrasound. REFERENCES: NASCET CRITERIA. The degree of stenosis in the cervical segment of the internal carotid artery is based on NASCET criteria. Normal is no stenosis. Mild is less than 50% stenosis. Moderate is 50-69% stenosis. Severe is 70% to 99% stenosis. Total occlusion is no detectable patent lumen. Dictated and Authenticated by: Warren Tsai MD. Ordering:JAIR Adame MD
--- NOTE | 2023-01-13 23:57 | DI.VRAD_ITS ---
PROCEDURE INFORMATION: Exam: CTA Chest With Contrast CTA Abdomen and Pelvis With Contrast Exam date and time: 01/13/2023 11:04 PM Age: 52 years old Clinical indication: Other: Chest pain radiating to neck, R/O dissection; Abdominal pain; Other: Chest pain radiating to back, nausea TECHNIQUE: Imaging protocol: Computed tomographic angiography of the chest with contrast. Computed tomographic angiography of the abdomen and pelvis with contrast. 3D rendering (Not supervised by radiologist): MIP and/or 3D reconstructed images were created by the technologist. Contrast material: OMNIPAQUE 350; Contrast volume: 70 ml; Contrast route: INTRAVENOUS (IV); COMPARISON: CT CHEST PE CTA 12/26/2019 2:20 PM FINDINGS: VASCULATURE: Pulmonary arteries: The pulmonary arteries are normal in caliber. No evidence of acute pulmonary embolism. Aorta: The aorta is normal without evidence of aneurysmal dilatation, dissection or occlusive disease. The abdominal aorta is widely patent without evidence of significant occlusive or aneurysmal disease. Celiac trunk and mesenteric arteries: The celiac artery is widely patent without evidence of occlusive or aneurysmal disease. Superior mesenteric artery is widely patent without evidence of occlusive or aneurysmal disease.The inferior mesenteric artery is widely patent without evidence of occlusive or aneurysmal disease. Renal arteries: Single renal artery supplies the right kidney, is widely patent, without evidence of significant occlusive or aneurysmal disease. Single renal artery supplies the left kidney, is widely patent, without evidence of significant occlusive or aneurysmal disease. Right iliac arteries: The right common iliac artery, right internal iliac artery and right external iliac arteries are widely patent without evidence of significant occlusive or aneurysmal disease. Right femoral/popliteal arteries: The right common femoral artery is widely patent without evidence of significant occlusive or aneurysmal disease. The proximal right deep and superficial femoral arteries are widely patent without evidence of significant occlusive or aneurysmal disease. Left iliac arteries: The left common iliac artery, left internal iliac artery and left external iliac arteries are widely patent without evidence of significant occlusive or aneurysmal disease. Left femoral/popliteal arteries: The left common femoral artery is widely patent without evidence of significant occlusive or aneurysmal disease. The proximal left deep and superficial femoral arteries are widely patent without evidence of significant occlusive or aneurysmal disease. Thyroid: Irregular low-attenuation left thyroid mass present. CHEST: Lungs: There is no evidence of focal pulmonary consolidation. No evidence of pulmonary parenchymal inflammatory changes. There is no evidence of pulmonary masses. Pleural spaces: There is no evidence of pneumothorax. There are no pleural effusions present. There is no evidence of pneumothorax. There are no pleural effusions present. Heart: The cardiac structures are normal. The right ventricular to left ventricular ratio is normal measuring approximately 0.95. The cardiac structures are normal. ABDOMEN AND PELVIS: Liver: There is a diffuse decrease in hepatic parenchymal density, consistent with mild fatty infiltration. The liver is enlarged measuring 17 cm. There are no focal liver lesions present. There is no evidence of intrahepatic or extrahepatic biliary ductal dilation. Gallbladder and bile ducts: The gallbladder is contracted but otherwise normal. There is no cholelitiasis, wall thickening or pericholecystic fluid to suggest cholecystitis. Pancreas: The pancreas is normal. Spleen: The spleen is normal. Adrenal glands: The adrenal glands are normal. Kidneys and ureters: Bilateral peripelvic cysts present. The kidneys are otherwise normal. Stomach and bowel: There is no evidence of intestinal obstruction. No diverticulitis is present. Appendix: A normal appendix is identified. There is no evidence of distention or periappendiceal inflammation to suggest appendicitis. Intraperitoneal space: There is no free intraperitoneal air. There is no evidence of free intraperitoneal or pelvic fluid. There are no soft tissue masses or fluid collections. Urinary bladder: The bladder is normal. Reproductive: The uterus is normal. The ovaries are normal. Lymph nodes: There is no evidence of lymphadenopathy. Bones/joints: The spine, sternum, ribs, and pectoral girdles show no evidence of acute abnormality. Patient is status post posterior fusion and laminectomies. Alignment of the lumbar spine remains normal. Disc space narrowing with central spinal stenosis present at L3-L4. The skeletal structures show no evidence of fracture or other acute processes. Soft tissues: There are no soft tissue masses or fluid collections. The upper abdominal viscera are unremarkable. The extra-abdominal soft tissues are normal. Other findings: The mediastinal structures are normal. The portal venous system visualized is unremarkable. The venous system visualized is unremarkable. IMPRESSION: 1. No significant arterial occlusive or aneurysmal disease. 2. No evidence of acute pulmonary embolism. 3. Irregular low-attenuation left thyroid mass present. 4. Patient is status post posterior fusion and laminectomies. Alignment of the lumbar spine remains normal. Disc space narrowing with central spinal stenosis present at L3-L4. 5. Hepatic steatosis with hepatomegaly Dictated and Authenticated by: Haider Huffman MD. Ordering:JAIR Adame MD
[2023-01-14] VITALS (16 sets, daily range): BP systolic 94–110; BP diastolic 53–79; PULSE 70–79; RESP 11–19; O2SAT 95–99
--- NOTE | 2023-01-14 | RT.EKG_ITS ---
APPROVED REPORT Exam: Resting ECG Reason for Exam: chest pain Patient Location: E HR:73 bpm ECG Measurements Heart Rate 73 AXIS KY 220 P 40 QRSd 74 QRS 29 QT 388 T 13 QTc 428 Conclusion Sinus rhythm...normal P axis, V-rate 60- 99 Prolonged KY interval...KY >210, V-rate 50- 90 Low voltage, precordial leads...precordial leads <1.0mV. Sinus. Normal axis. No STEMI. I have reviewed and interpreted ECG and agree with software generated interpretation.
[2023-01-14] MEDS: Sucralfate 1 GM TAB PO (00:23)
[2023-01-14 00:55] LABS: Troponin I < 50 ng/L (<or=60)
== END 2023-01-14 01:50 | disposition home or self-care (01) ==
PROVIDERS: Emergency Provider Physician Assistant; PCP Nurse Practitioner Family
DX: R07.2 Precordial pain (principal); M54.9 Dorsalgia, unspecified; I10 Essential (primary) hypertension; J44.9 Chronic obstructive pulmonary disease, unspecified; F32.A Depression, unspecified; R74.8 Abnormal levels of other serum enzymes; Z20.822 Contact with and (suspected) exposure to COVID-19; Z86.73 Personal history of transient ischemic attack (TIA), and cerebral infarction without residual deficits; Z79.51 Long term (current) use of inhaled steroids; F17.210 Nicotine dependence, cigarettes, uncomplicated
CPT/HCPCS: 70498; 71275; 80053; 83690; 87637; 93005; 96361; 96374; 96375; 99285; 74174; 83735; 84484; 85025; 93010; J0131; J2405; J3490; Q9967

== ENCOUNTER 2023-01-21 00:46 | Outpatient (CLI) | payer OTHER, MEDICAID, SELFPAY ==
--- NOTE | 2023-01-21 | DI.CTLCSR_ITS ---
Exam(s) CT CHEST LUNG CANCER SCREEN EXAM: CT CHEST LUNG CANCER SCREEN CLINICAL HISTORY: SCREENING FOR LUNG CA, FORMER SMOKER, Z87.891 TECHNIQUE: Imaging Protocol: Axial computed tomography images with coronal and sagittal reformatted images were created and reviewed. Low dose screening protocol. COMPARISON: CT CT CHEST WO from 02/15/[address] THORAX ABD/PEL CTA from 01/13/2023 FINDINGS: Tracheobronchial tree: No bronchiectasis or mucus plugging.. Mediastinum and Margareth: No dominant adenopathy or fluid collection. Pulmonary parenchyma: No consolidation or dominant measurable mass. Mild emphysematous changes. Lung Nodules: None. Pleura: No effusion. No pneumothorax. Heart: The heart is not dilated. No coronary artery calcifications are seen. Aorta: Thoracic aorta non-dilated. Upper abdomen: Unremarkable. Bones: Unremarkable for age. Soft Tissues: Unremarkable. IMPRESSION: No suspicious pulmonary nodules. Lung RADS Cat 1 - Negative: No nodules and definitely benign nodules Lung-RADS 1.0 CATEGORIES: Category 0 - Prior chest CT exam(s) being located for comparison. Category 1 - Annual screening in 12 months. No nodules or definitely benign nodules. Category 2 - Annual screening in 12 months. Benign appearance. Nodules with low likelihood of becomin g active cancer. Category 3 - 6-month follow-up. Probably benign. Short-term follow-up suggested. Nodules with low lik elihood of becoming active cancer. Category 4A - 3-month follow-up and CT/PET if >8 mm in size. Suspicious finding. Findings which requi re additional testing. Category 4B - Findings which require additional testing and tissue sampling. Category 4X - Category 3 or 4 nodules with additional features or imaging findings that increases the suspicion of malignancy. Modifier S- Potentially clinically significant findings (non lung cancer) RADIATION DOSE DELIVERED: 98.31mGy.cm Total DLP DATA REPOSITORY: All CT scans at this facility are submitted to the National Radiology Data Registry (NRDR) Dose Index Registry (DIR) with the [employer] (ACR). RADIATION OPTIMIZATION: All CT scans at this facility use at least one of these dose optimization te chniques: automated exposure control; mA and/or kV adjustment per patient size (includes targeted exa ms where dose is matched to clinical indication); or iterative reconstruction.
--- NOTE | 2023-01-21 08:15 | DI.US_ITS ---
Exam(s) US ABDOMEN LIMITED EXAM: US ABDOMEN LIMITED CLINICAL HISTORY: EPIGASTRIC ABD PAIN, R10.13; FATTY LIVER DISEASE, K76.0 TECHNIQUE: Ultrasound abdomen performed using standard protocol. COMPARISON: CT CT THORAX ABD/PEL CTA from 01/13/[address] CHEST LUNG CANCER SCREEN from 01/21/2023 FINDINGS: GALLBLADDER: No evidence of cholelithiasis. No evidence of wall thickening. No pericholecystic fluid identified. GOODMAN'S SIGN: Negative. BILIARY SYSTEM: No intrahepatic or extrahepatic biliary ductal dilation. RIGHT KIDNEY: Normal size. No evidence of renal calculi. No evidence of hydronephrosis. No suspicious renal mass. Parapelvic cyst 2.7 cm. PANCREAS: Normal where visualized. ABDOMINAL AORTA AND IVC: Visualized portions normal caliber. ASCITES: None seen. LIVER: Enlarged at 18.2 cm in length. Mildly increased liver echogenicity consistent with mild hepat ic steatosis. No focal liver lesions are seen.. IMPRESSION: Mild hepatic steatosis. Gallbladder unremarkable. DATA REPOSITORY:
== END 2023-01-21 01:06 ==
LOC: DI 00:47
PROVIDERS: PCP Nurse Practitioner Family; Visit Provider Nurse Practitioner Family
DX: Z87.891 Personal history of nicotine dependence (principal); K76.0 Fatty (change of) liver, not elsewhere classified; R10.11 Right upper quadrant pain; K21.00 Gastro-esophageal reflux disease with esophagitis, without bleeding; K29.80 Duodenitis without bleeding
CPT/HCPCS: 71271; 99213; 76705

== ENCOUNTER 2023-02-09 01:32 | Outpatient (CLI) | payer OTHER, MEDICAID, SELFPAY ==
--- NOTE | 2023-02-09 06:45 | DI.NM_ITS ---
Exam(s) NM HEPATOBILIARY CCK GRP EXAM: NM HEPATOBILIARY CCK GRP CLINICAL HISTORY: ruq pain radiates to back/shoulder/naUSEA,FAMILY H/O GB DISEASE,R10.11. TECHNIQUE: Injected dose: 5 mCi Tc-99 mebrofenin Initial dynamic images: 60 minutes Post-Gallbladder fillin.7 mcg CCK intravenously according to protocol. Addition images: 20 minute dynamic during CCK administration. COMPARISON: US US ABDOMEN LIMITED from 01/21/2023 FINDINGS: Normal hepatic transit time. Prompt excretion into the small bowel. Prompt excretion into the gallbladder. The gallbladder ejection fraction is 73 percent which is with in normal limits. (Normal ejection fraction is greater than 40 percent). IMPRESSION: 1. Normal examination. SN guidelines: Gallbladder visualization should be present by 3 hours. Delayed aatajfj-gc-hyitz gregorio sit beyond 60 min raises the suspicion for partial common bile duct (CBD) obstruction. Gallbladder ejection fraction <35% has a good correlation with acalculous disease (i.e., chronic acal culous cholecystitis, cystic duct syndrome, sphincter of Oddi disease).
[2023-02-09] MEDS: Sincalide 5 MCG VIAL 1.7 MCG IJ (13:04)
[2023-02-09] MEDS: Water,Injection,Sterile 10 ML VIAL IJ (13:05)
== END 2023-02-09 01:52 ==
LOC: DI 01:32
PROVIDERS: PCP Nurse Practitioner Family; Visit Provider Surgery
DX: R10.11 Right upper quadrant pain (principal); R11.0 Nausea; K21.00 Gastro-esophageal reflux disease with esophagitis, without bleeding; Z83.79 Family history of other diseases of the digestive system
CPT/HCPCS: 78227; J2805

== ENCOUNTER → 2023-02-11 08:51 | Outpatient (BNVA) | payer OTHER, MEDICAID, SELFPAY | PROVIDERS: PCP Nurse Practitioner Family; Referring Provider Nurse Practitioner Family; Visit Provider Surgery | DX: R10.11 Right upper quadrant pain (principal); K21.00 Gastro-esophageal reflux disease with esophagitis, without bleeding; K29.80 Duodenitis without bleeding; E66.9 Obesity, unspecified; G47.33 Obstructive sleep apnea (adult) (pediatric) | CPT/HCPCS: 99212; 99213 ==

== ENCOUNTER 2023-02-23 09:03 | Day surgery (SDC) | payer OTHER, MEDICAID, SELFPAY ==
[2023-02-23 09:44] VITALS: BP 105/83; PULSE 79; RESP 16; TEMP 36.6; O2SAT 98
--- NOTE | 2023-02-23 09:51 | W.ANESPRE ---
General Info Date of Service Date Performed: 02/23/23 Height: 5 ft 8 in Weight: 116.1 kg Body Mass Index (BMI): 38.9 Surgical Procedure: Operation Date: 02/23/23 10:35 Proposed Procedure Side Surgeon p Gastroscopy Julius Bach MD Meds Allergies and Home Medications Allergies Allergy/AdvReac Type Severity Reaction Status Date / Time adhesive Allergy Intermediate gets red Verified 02/23/23 10:01 and welts up codeine Allergy Intermediate Itching Unverified 02/23/23 10:01 oxycodone HCl [From Percocet] Allergy Intermediate Anaphylaxsi Unverified 02/23/23 10:01 s morphine Allergy Itching Verified 02/23/23 10:01 cyclobenzaprine AdvReac Headache Unverified 02/23/23 10:01 [From Flexeril] Home Medication Medication Instructions Recorded albuterol sulfate 90 mcg/actuation 2 puff inhalation PRN PRN 02/15/17 aerosol inhaler (Proventil HFA) acetaminophen 500 mg tablet 1,000 mg PO Q8H PRN pain #90 tabs 11/15/19 topiramate 100 mg tablet (Topamax) 100 mg PO BID 12/26/20 montelukast 10 mg tablet 10 mg PO DAILY 05/18/21 umeclidinium 62.5 mcg/actuation 1 inh inhalation DAILY 05/18/21 blister powder for inhalation (Incruse Ellipta) fluticasone propionate 50 2 spray intranasal DAILY 11/02/22 mcg/actuation nasal spray,suspension gabapentin 300 mg capsule 600 mg PO TID 11/02/22 famotidine 20 mg tablet 20 mg PO DAILY 01/12/23 dexlansoprazole 30 mg 30 mg PO DAILY #30 caps 01/21/23 capsule,biphase delayed release (Dexilant) sucralfate 1 gram tablet (Carafate) 1 g PO QACHS #120 tabs 01/21/23 Current Visit Medications: Current Medications Generic Name Dose Route Start Last Admin Trade Name Freq PRN Reason Stop Dose Admin Ringer's Solution 1,000 mls @ 80 mls/hr 02/23/23 06:00 IV 03/24/23 23:59 INFUSION TALI IV Miscellaneous Supplies 1 each 02/23/23 06:00 Iv Access IV 03/24/23 23:59 DIRECTED TALI Sodium Chloride 0 ml 02/23/23 06:00 Normal Saline Flush 10 Ml Syr IV 03/24/23 23:59 PRN PRN Sodium Chloride 0 ml 02/23/23 06:00 Normal Saline 10 Ml Vial IJ 03/24/23 23:59 DIRECTED PRN Sterile Water 0 ml 02/23/23 06:00 Water,Injection,Sterile 10 Ml Vial IJ 03/24/23 23:59 DIRECTED PRN PFSH Active Problems Active Problems: Problem Status Onset Code Vertigo R42 Diplopia H53.2 Thyroid nodule E04.1 Tobacco abuse Z72.0 Atypical migraine G43.009 Migraine headache with aura G43.109 Migraine headache without aura G43.009 Chronic headache R51 Lumbar degenerative disc disease M51.36 Chronic low back pain M54.5, G89.29 Effusion, left knee M25.462 History of total left knee replacement (TKR) 11/14/19 Z96.652 Pain in knee region after total knee replacement T84.84XA, Z96.659 Atypical chest pain R07.89 Osteoarthritis of left hip joint due to dysplasia M16.32 Left buttock pain M79.18 Left sciatic notch pain M54.32 Abdominal pain R10.9 Papanicolaou smear for cervical cancer screening Z12.4 Renal cyst N28.1 Gross hematuria R31.0 Esophagitis, [place] grade A K20.80 Chronic erosive gastritis K29.40 Duodenitis K29.80 GERD with esophagitis K21.00 Migraine G43.909 Contact dermatitis L25.9 Headache R51.9 COPD (chronic obstructive pulmonary disease) with acute bronchitis J44.0, J20.9 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, 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 Postprandial RUQ pain R10.11 Family history of gallbladder disease in sister Z83.79 Medical History Medical History Arthralgia Asthma Chronic pain Cigarette smoker Depression Dyspepsia Family history of breast cancer Family history of colon cancer Hidradenitis suppurativa Hyperthyroidism Intertrigo Left lateral epicondylitis s/p debridement 11/30/18 Malaise and fatigue Migraine Obese Obstructive sleep apnea No CPAP at this time Postmenopausal bleeding resolved Prediabetes PTSD (post-traumatic stress disorder) Syncope Tear of medial meniscus of left knee Aspiration: 04/09/2019; 02/05/19 Depo-Medrol injection: 04/09/2019; 02/05/19 Tendinitis of both rotator cuffs (06/30/18) Thyroid nodule TIA (transient ischemic attack) 06/15-per pt. no residual deficiets and has not beenrequired to f/u with neuro Tobacco use Surgical History Surgical History Colonoscopy - MAC (02/14/18) EGD - MAC (02/14/18) History of back surgery lower back, 07/2020 History of esophagogastroduodenoscopy (EGD) (~02/09/21) Replacement of total knee joint R Rotator Cuff Repair 2x on R, 1 x on L, pt report 2 on the left side S/P left knee arthroscopy partial medial menisectomy and trochlear chondroplasty DOS: 05/17/19 Aspiration/Injection: 06/15/19 Status post left rotator cuff repair DOS: 11/30/2018 Dr. Brunson corticosteroid injection: 02/21/19 Tobacco Smoking/Tobacco Use Status: Current-Occasional Tobacco Type: cigarettes Smoking cigarettes per day: 3 Alcohol Alcohol Intake: current Alcohol intake frequency: holidays/special occasions only Substance Use Substance use: Occasionally Substance use type: marijuana Vital Signs and Lab Results Vital Signs Most Recent Vital Signs in EMR: Most Recent Vital Signs Temp Pulse Resp BP Pulse Ox 36.6 C 79 16 105/83 98 02/23/23 09:44 02/23/23 09:44 02/23/23 09:44 02/23/23 09:44 02/23/23 09:44 Lab Results Blood Type / Crossmatch: No Data to Display Complete Blood Count: No Data to Display Complete Metabolic Panel: No Data to Display Liver Function Panel: No Data to Display Coagulation Panel: No Data to Display Cardiac Panel: No Data to Display Arterial Blood Gas: No Data to Display Venous Blood Gas: No Data to Display Pancreas Panel: No Data to Display Thyroid Panel: No Data to Display Infectious Disease: No Data to Display Blood Cultures: No Data to Display Toxicology Panel: No Data to Display Panel: No Data to Display Imaging and Studies Imaging and Studies Study information below may be from another EMR and interpreted by another provider. Please see original notes in EMR for more complete details. EKG Summary: Conclusion Sinus rhythm...normal P axis, V-rate 60- 99 Prolonged NJ interval...NJ >210, V-rate 50- 90 Low voltage, precordial leads...precordial leads <1.0mV. Sinus. Normal axis. No STEMI. I have reviewed and interpreted ECG and agree with software generated interpretation Stress Test Summary: Myocardial perfusion imaging: No myocardial perfusion defects noted. 2. The calculated left ventricular ejection fraction after stress: 55%. No left ventricular regional motion abnormality. History: Patient's presenting symptoms: asymptomatic. REASON FOR VISIT: PATIENT HAS BEEN EXPERIENCING 9/10 CHEST PAIN/PRESSURE DESCRIBED HEAVY FOR THE PAST 6 MONTHS. THE CHEST PRESSURE OCCURS WITH BOTH REST AND EXERTION, AND RESOLVES WITHIN MINUTES WHILE AT REST. CHEST PRESSURE IS ASSOCIATED WITH A STABBING PAIN DOWN BILATERAL ARMS AND LEGS, DIAPHORESIS, AND OCCASIONAL NAUSEA FOLLOWING CHEST PRESSURE. PATIENT REPORTS SHE LAST EXPERIENCED THIS CHEST PRESSURE 3 WEEKS AGO. MEDICAL HISTORY: ASTHMA, PTSD, MIGRAINES. NEGATIVE REGULAR STRESS TEST IN 2013. Echocardiogram Summary: Summary: 1. Left ventricle: The cavity size was normal. Systolic function was normal. The estimated ejection fraction was 55-60%. Diastolic parameters were normal. There was no evidence of elevated ventricular filling pressure by Doppler parameters. 2. Aortic valve: There was trivial regurgitation. 3. Mitral valve: There was mild regurgitation. 4. Right ventricle: The cavity size was normal. Wall thickness was normal. Systolic function was normal. 5. Atrial septum: No defect or patent foramen ovale was identified. 6. Pulmonary arteries: Pulmonary systolic pressure was in the range of 15mm Hg to 25mm Hg. 7. Inferior vena cava: The vessel was patent and normal in size. The respirophasic diameter changes were in the normal range (greater than or equal to 50%), consistent with normal central venous pressure. Anesthesia Assessment and Plan Anesthesia History Personal History: No History of Anesthesia Complications Family History: No Family History of Anesthesia Complications Exercise Tolerance Exercise Tolerance: Metabolic Equivalents>4 Cardiac & Pulmonary Exam Cardiac Exam: Normal S1/S2 Heart Sounds Pulmonary Exam: Clear Bilateral Breath Sounds Implantable Cardiac Device Does patient have a Pacemaker or an ICD?: No Airway Exam Known Difficult Airway: No Mallampati Class: 2 Mouth Opening: Normal (> 3cm) Thyromental Distance: Greater than 3 cm Neck Range of Motion: Full ROM Neck Circumference: Normal Teeth Condition: Removable Dentures/Plates Upper and Edentulous ASA Classification ASA Score: ASA 2 Emergency Case?: No NPO Status NPO Status: NPO Clears >2 hours, Solids >8 hours Status Status: Not Relevant due to Medical History Anesthesia Plan Resuscitation Status: Full Code Anesthesia Technique: General Anesthesia Airway Planned: Natural Airway Monitors Used: Standard Monitors
--- NOTE | 2023-02-23 09:59 | W.PM.ENDDOP ---
Date of service: 02/23/23 Time of Service: 11:00 Endoscopy Report PROCEDURE DESCRIPTION: Procedures performed: 1.? Esophagogastroduodenoscopy with cold forceps biopsies Preoperative diagnosis: Postprandial abdominal discomfort, cyclic vomiting Postoperative diagnosis: Small (~1 cm) sliding hiatal hernia Surgeon: Edgar Bach Anesthesia: Kamlesh Indication for procedure: 52 yo woman with epigastric and right upper quadrant discomfort related to eating. Shee has a history of gastritis/gastropathy and duodenitis as well as esophagitis of ulceration on an EGD a couple of years ago. Gallbladder work-up thus far has been unremarkable. She says she throws up bile and acid every night. Findings: - D3, D2 and D1 - normal - no inflammation or ulcers - Pylorus - patent.? No bile reflux visualized during procedure. - Antrum -does not appear inflamed or irritated- biopsies taken routinely to rule out occult H. pylori - Stomach Body -normal appearance.? Biopsies taken to assess/confirm - Fundus -? Normal.? No polyps. - Hiatus - Retroflexion showed a small type I sliding hiatal hernia (1 cm slide) - Esophagus - distal esophagus does not look visibly inflamed.? No stricture, no ulcers, no visible inflammation or evidence of Kaur's.? I took cold forceps biopsies to confirm. The mid and proximal esophagus was also normal. - Cords/hypopharynx - Normal OVERALL - no findings which would explain the abdominal discomfort she has been having. If her gallbladder work-up is normal, CT scan may play a role. The hiatal hernia would not be considered symptomatic nor is it large enough to warrant repair. Surveillance/follow-up recommendations: Pending biopsy results.?? Unlikely to be necessary. Complications: None Blood loss: Minimal Specimens:? YES Procedure in detail: Written consent was obtained from the patient who was in agreement with the risks, benefits and indications of the procedure.? We went to the endoscopy suite and laid the patient in left lateral decubitus position.? Anesthesia was administered which was tolerated well.? A timeout was performed and when we are all in agreement we began the procedure. A well?lubricated endoscope was advanced without difficulty down the esophagus, into the stomach, through a patent pylorus and into the duodenum.? It was then slowly pulled back with findings noted above. The scope was then removed and the patient tolerated the procedure well.
[2023-02-23 10:07] VITALS: BMI 38.9
[2023-02-23] MEDS: Lactated Ringers 1,000 ML 80 ML IV (10:07)
--- NOTE | 2023-02-23 11:04 | STOM_PTH ---
PATIENT: Dinesh John LOC: [facility] U#:[id number] AGE/SX: 52/F ROOM: RE02/23/[address]: Julius Bach : 1970 BED: DIS: 02/23/2023 SPEC #: [id number] RECD: 02/23/23 12:54 STATUS: SANDRA RE #: [id number] LORRAINE: 02/23/23 11:[address]: Julius Bach DEPT: Surgical Specimen RECD BY: Jojo Gandara ENTERED: 02/23/23 12:56 SP TYPE: STOMACH OTHR DR: Lucy Courtney Tissues: 1 - STOMACH BIOPSY 2 - STOMACH BIOPSY 3 - ESOPHAGUS BIOPSY Procedures: GROSS AND MICRO LEVEL 4 SPECIAL STAIN 1 Comments: [id number]
[2023-02-23 11:17] VITALS: BP 101/65; PULSE 89; RESP 16; TEMP 36.2; O2SAT 96
--- NOTE | 2023-02-23 11:29 | W.ANESPOSTOP ---
Postoperative Evaluation Date, Time and Location Date Performed: 02/23/23 Time Performed: 11:29 Patient Location: Day Surgery Unit Vital Signs Most Recent Imported Vital Signs: Most Recent Vital Signs Temp Pulse Resp BP Pulse Ox 36.2 C L 89 16 101/65 96 02/23/23 11:17 02/23/23 11:17 02/23/23 11:17 02/23/23 11:17 02/23/23 11:17 Pain Score Most Recent Pain Score: Most Recent Pain Score Pain Level 0 02/23/23 09:44 Assessment Mental Status: Awake (Alert & Oriented to Patient Baseline) Airway and Respiratory Function: Patent airway with normal (patient baseline) respiratory exam Cardiovascular Function: Hemodynamically Stable Hydration Status: Adequately Hydrated Nausea & Vomiting: No Nausea or Vomiting Pain: Pt. Denies Any Pain Peripheral Nerve Block: Patient did not receive a nerve block
[2023-02-23 11:48] VITALS: PULSE 72; RESP 16; TEMP 36.7
== END 2023-02-23 12:05 | disposition home or self-care (01) ==
PROVIDERS: PCP Nurse Practitioner Family; Visit Provider Student in an Organized Health Care Education/Training Program
PROC: 0DJ68ZZ Inspection of Stomach, Via Natural or Artificial Opening Endoscopic (ICD-10-PCS; CPT 43235; principal; 2023-02-23 10:30)
DX: K20.90 Esophagitis, unspecified without bleeding (principal); K44.9 Diaphragmatic hernia without obstruction or gangrene; R11.15 Cyclical vomiting syndrome unrelated to migraine; K31.89 Other diseases of stomach and duodenum
CPT/HCPCS: 43239; 88305; 88312; J2704

== ENCOUNTER 2023-03-09 08:25 | Emergency (ER) | payer OTHER, MEDICAID, SELFPAY ==
[2023-03-09 08:28] VITALS: BP 131/92; PULSE 80; RESP 18; TEMP 36.4; O2SAT 98
[2023-03-09] MEDS: diphenhydrAMINE 50 MG/ML VIAL 25 MG IVP (09:01)
[2023-03-09] MEDS: Lactated Ringers 1,000 ML 1000 ML IV (09:01)
[2023-03-09] MEDS: Prochlorperazine 10 MG/2 ML VIAL IVP (09:01)
[2023-03-09 09:02] LABS: Abs Immature Grans 0.02 10^3/uL (0.0-0.06); Absolute Basophil Count 0.03 10^3/uL (0.0-0.2); Absolute Eosinophil Count 0.17 10^3/uL (0.0-0.7); Absolute Lymphocyte Count 2.48 10^3/uL (1.2-3.4); Absolute Neutrophil Count 4.25 10^3/uL (1.2-6.7); Basophils % 0.4; Eosinophils % 2.3; HCT 43.6 % (36.0-46.0); Immature Grans % 0.3; Lymphocytes % 32.8; MCH 28.1 pg (27.0-33.0); MCHC 32.1 % (32.0-36.0); MCV 88 fL (80-95); MPV 9.3 fL (8.0-11.0); Monocytes % 7.9; Neutrophils % 56.3; Platelet Count 306 10^3/uL (130-400); RBC 4.98 10^6/uL (3.93-5.22); RDW 14.4 % (11.7-14.6); RDW-SD 46.3 fL; WBC 7.55 10^3/uL (4.4-10.8)
[2023-03-09 09:15] LABS: ALT 29 U/L (14-59); AST 18 U/L (15-37); Albumin 3.5 g/dL (3.4-5.0); Alkaline Phosphatase 84 U/L (46-116); Anion Gap 10.9 mmol/L (3-11); BUN 15 mg/dL (7-18); Bilirubin, Total 0.9 mg/dL (0.2-1.0); CO2 23.1 mmol/L (21.0-32.0); CREATININE 0.9 mg/dL (0.55-1.02); Calcium 8.8 mg/dL (8.5-10.1); Chloride 107 mmol/L (98-107); Estimated GFR 76.92 (mL/min/1.73m2); Glucose 115 mg/dL (74-106); Potassium 3.6 mmol/L (3.5-5.1); Sodium 141 mmol/L (136-145); Total Protein 7.8 g/dL (6.4-8.2)
[2023-03-09] MEDS: Ketorolac 15 MG/ML VIAL IVP (10:03)
[2023-03-09] MEDS: ACETAMINOPHEN 1,000 MG/100 ML BTL 400 MG IVPB (10:03)
[2023-03-09] MEDS: Dexamethasone 10 MG/ML VIAL IVP (10:03)
--- NOTE | 2023-03-09 10:08 | W.ED.GENAD ---
Discharge Plan Disposition Patient Disposition: Home Discharge Details Clinical Impression: Headache Primary Care Provider: Lucy Courtney ED Provider: Jojo Joyner Home Meds and New Rx's Prescriptions: New prochlorperazine maleate [Compazine] 10 mg tablet 10 mg PO Q6H PRNQty: 10 0RF Continued topiramate [Topamax] 100 mg tablet 100 mg PO BID sucralfate [Carafate] 1 gram tablet 1 g PO QACHS Qty: 120 12RF dexlansoprazole [Dexilant] 30 mg capsule,biphase delayed releas 30 mg PO DAILY Qty: 30 12RF gabapentin 300 mg capsule 600 mg PO TID fluticasone propionate 50 mcg/actuation spray,suspension 2 spray intranasal DAILY Rx Instructions: administer into each nostril famotidine 20 mg tablet 20 mg PO DAILY acetaminophen 500 mg tablet 1,000 mg PO Q8H PRN (Reason: pain) Qty: 90 3RF Incruse Ellipta 62.5 mcg/actuation blister with device 1 inh INHALATION DAILY Patient Comments: INHALE ONE PUFF BY MOUTH EVERY DAY montelukast 10 mg tablet 10 mg PO DAILY Patient Comments: TAKE ONE TABLET BY MOUTH EVERY DAY albuterol sulfate [Proventil HFA] 200 PUFF HFA aerosol inhaler 2 puff Inhalation PRN PRN Discharge Instructions Instructions: General Headache (ED) Additional Instructions: Take Compazine as needed for headache Increase your fluid consumption Continue to take your prescribed medication and return earlier with new or worsening complaints Referrals: Lucy Courtney [Primary Care Provider] - Discharge Data Discharge Date/Time-TO BE ENTERED AT DEPARTURE: 03/09/23 10:21 Medical Decision Making 52-year-old female presents with headache, consistent with her prior Reviewed recent CTA imaging of her head and neck without acute abnormality After typical migraine cocktail reports significant improvement in symptoms No meningismus or evidence of infectious etiology of her patient's complaints Diagnostic labs do not show evidence of acute abnormality Discharged home in stable condition with stable vitals, Medical Records Medical records reviewed: Yes I reviewed the patient's medical records. Lab Data Lab results reviewed: Yes I reviewed the patient's lab results. HPI General Date/Time Provider Initiated Documentation: 03/09/23 08:27. HPI Narrative: This 52-year-old female presents with headache that she awoke with. She has a history of headaches and states this is similar. She is been vomiting. She denies any chest pain or shortness of breath. She denies any dizziness or weakness. She denies any stiff neck or headache. She did take her Topamax without alleviation in her symptoms. Related Data Home Medications Medication Instructions Recorded Confirmed albuterol sulfate 90 mcg/actuation 2 puff inhalation PRN PRN 02/15/17 03/09/23 aerosol inhaler (Proventil HFA) acetaminophen 500 mg tablet 1,000 mg PO Q8H PRN pain #90 tabs 11/15/19 03/09/23 topiramate 100 mg tablet (Topamax) 100 mg PO BID 12/26/20 03/09/23 montelukast 10 mg tablet 10 mg PO DAILY 05/18/21 03/09/23 umeclidinium 62.5 mcg/actuation 1 inh inhalation DAILY 05/18/21 03/09/23 blister powder for inhalation (Incruse Ellipta) fluticasone propionate 50 2 spray intranasal DAILY 11/02/22 03/09/23 mcg/actuation nasal spray,suspension gabapentin 300 mg capsule 600 mg PO TID 11/02/22 03/09/23 famotidine 20 mg tablet 20 mg PO DAILY 01/12/23 03/09/23 dexlansoprazole 30 mg 30 mg PO DAILY #30 caps 01/21/23 03/09/23 capsule,biphase delayed release (Dexilant) sucralfate 1 gram tablet (Carafate) 1 g PO QACHS #120 tabs 01/21/23 03/09/23 prochlorperazine maleate 10 mg 10 mg PO Q6H PRN #10 tabs 03/09/23 tablet (Compazine) Previous Rx's Medication Instructions Recorded acetaminophen 500 mg tablet 1,000 mg PO Q8H PRN pain #90 tabs 11/15/19 dexlansoprazole 30 mg 30 mg PO DAILY #30 caps 01/21/23 capsule,biphase delayed release (Dexilant) sucralfate 1 gram tablet (Carafate) 1 g PO QACHS #120 tabs 01/21/23 prochlorperazine maleate 10 mg 10 mg PO Q6H PRN #10 tabs 03/09/23 tablet (Compazine) Allergies Allergy/AdvReac Type Severity Reaction Status Date / Time adhesive Allergy Intermediate gets red Verified 03/09/23 08:31 and welts up codeine Allergy Intermediate Itching Unverified 03/09/23 08:31 oxycodone HCl [From Percocet] Allergy Intermediate Anaphylaxsi Unverified 03/09/23 08:31 s morphine Allergy Itching Verified 03/09/23 08:31 cyclobenzaprine AdvReac Headache Unverified 03/09/23 08:31 [From Flexeril] General Stated Complaint: Headache CRISTI: 3 PFSH All Active Problems (Updated 03/09/23 @ 10:14 by ANTONINO Srivastava) Vertigo (Chronic) Diplopia (Acute) Thyroid nodule (Acute) Tobacco abuse (Acute) Atypical migraine (Acute) Migraine headache with aura (Acute) Migraine headache without aura (Acute) Chronic headache (Acute) Lumbar degenerative disc disease (Acute) Chronic low back pain (Acute) Effusion, left knee (Acute) History of total left knee replacement (TKR) (Acute 11/14/19) Dr. 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 (Acute) Postprandial RUQ pain (Acute) Family history of gallbladder disease in sister (Acute) Headache (Acute) Medical History Arthralgia Asthma Chronic pain Cigarette smoker Depression Dyspepsia Family history of breast cancer Family history of colon cancer Hidradenitis suppurativa Hyperthyroidism Intertrigo Left lateral epicondylitis s/p debridement 11/30/18 Malaise and fatigue Migraine Obese Obstructive sleep apnea No CPAP at this time Postmenopausal bleeding resolved Prediabetes PTSD (post-traumatic stress disorder) Syncope Tear of medial meniscus of left knee Aspiration: 04/09/2019; 02/05/19 Depo-Medrol injection: 04/09/2019; 02/05/19 Tendinitis of both rotator cuffs (06/30/18) Thyroid nodule TIA (transient ischemic attack) 06/15-per pt. no residual deficiets and has not beenrequired to f/u with neuro Tobacco use Surgical History Colonoscopy - MAC (02/14/18) EGD - MAC (02/14/18) History of back surgery lower back, 07/2020 History of esophagogastroduodenoscopy (EGD) (~02/09/21) Replacement of total knee joint R Rotator Cuff Repair 2x on R, 1 x on L, pt report 2 on the left side S/P left knee arthroscopy partial medial menisectomy and trochlear chondroplasty DOS: 05/17/19 Aspiration/Injection: 06/15/19 Status post left rotator cuff repair DOS: 11/30/2018 Dr. Brunson corticosteroid injection: 02/21/19 Family History Father Rheumatoid arthritis Brother Rheumatoid arthritis Social History Smoking/Tobacco Use Status: Current-Occasional Tobacco Type: cigarettes Tobacco: How many years used: 25 Smoking risk assessment performed?: Yes Alcohol Intake: current Alcohol Intake frequency: holidays/special occasions only Drug use: Occasionally Substance use type: marijuana Details: 02/23/23: last smoked marijuana 02/22/23 02/23/23: Pt reports she was in ER a few weeks ago with chest pains. Current gender identity: female Do you feel safe at home: Yes (lives with mom) Do you feel safe in your relationship?: Yes Exam Const General: cooperative, comfortable and no acute distress HENMT Head: normal to inspection Eyes Pupils: PERRL Resp Effort & Inspection: normal respiratory effort Auscultation: clear to auscultation bilaterally Cardio Rate: regular rate Rhythm: regular rhythm Neuro General: patient alert and patient oriented x3 Cranial Nerves: CN's II-XI intact bilaterally and tongue midline Cognition: normal cognition Speech: speech normal Gait: normal gait Course Vital Signs Vital signs: Vital Signs Temperature 36.4 C L 03/09/23 08:28 Pulse 80 03/09/23 08:28 Respiratory Rate 18 03/09/23 08:28 Blood Pressure 131/92 H 03/09/23 08:28 Pulse Oximetry 98 03/09/23 08:28 Temperature 36.4 C L 03/09/23 08:28 Temperature Source Oral 03/09/23 08:28 Pulse 80 03/09/23 08:28 Respiratory Rate 18 03/09/23 08:28 Respiratory Effort Normal 03/09/23 08:30 Blood Pressure 131/92 H 03/09/23 08:28 Blood Pressure Position Sitting 03/09/23 08:28 Pulse Oximetry 98 03/09/23 08:28 Oxygen Delivery Method Room Air 03/09/23 08:28 Oxygen Flow Rate 0 03/09/23 08:28 Pain Level 10 03/09/23 08:28 Lab/Test Results Lab/Test Results: Laboratory Tests Range/Units 03/09/23 03/09/23 03/09/23 08:50 08:50 09:43 WBC (4.4-10.8) 10^3/uL 7.55 RBC (3.93-5.22) 10^6/uL 4.98 Hgb (11.2-15.7) g/dL 14.0 Hct (36.0-46.0) % 43.6 MCV (80-95) fL 88 MCH (27.0-33.0) pg 28.1 MCHC (32.0-36.0) % 32.1 RDW (11.7-14.6) % 14.4 Plt Count (130-400) 10^3/uL 306 MPV (8.0-11.0) fL 9.3 Immature Gran % 0.3 Neutrophils % 56.3 Lymphocytes % 32.8 Monocytes % 7.9 Eosinophils % 2.3 Basophils % 0.4 Nucleated RBC % (0.0-0.3) % 0.0 Absolute Neutrophils (1.2-6.7) 10^3/uL 4.25 Absolute Lymphocytes (1.2-3.4) 10^3/uL 2.48 Absolute Monocytes (0.1-0.8) 10^3/uL 0.60 Absolute Eosinophils (0.0-0.7) 10^3/uL 0.17 Absolute Basophils (0.0-0.2) 10^3/uL 0.03 Sodium (136-145) mmol/L 141 Potassium (3.5-5.1) mmol/L 3.6 Chloride (98-107) mmol/L 107 Carbon Dioxide (21.0-32.0) mmol/L 23.1 Anion Gap (3-11) mmol/L 10.9 BUN (7-18) mg/dL 15 Creatinine (0.55-1.02) mg/dL 0.9 Est GFR (CKD-EPI 2020) (mL/min/1.73m2) 76.92 Glucose (74-106) mg/dL 115 H Calcium (8.5-10.1) mg/dL 8.8 Magnesium (1.8-2.4) mg/dL 2.0 Total Bilirubin (0.2-1.0) mg/dL 0.9 AST (15-37) U/L 18 ALT (14-59) U/L 29 Alkaline Phosphatase (46-116) U/L 84 Total Protein (6.4-8.2) g/dL 7.8 Albumin (3.4-5.0) g/dL 3.5 Acetaminophen Cancelled
== END 2023-03-09 10:21 | disposition home or self-care (01) ==
PROVIDERS: Emergency Provider Physician Assistant; PCP Nurse Practitioner Family
DX: R51.9 Headache, unspecified (principal); R11.10 Vomiting, unspecified
CPT/HCPCS: 36415; 80053; 96361; 96374; 96375; 99284; 80329; 83735; 85025; J0131; J0780; J1100; J1200; J1885

== ENCOUNTER → 2023-03-14 08:50 | Outpatient (BNVA) | payer OTHER, MEDICAID, SELFPAY | PROVIDERS: PCP Nurse Practitioner Family; Referring Provider Nurse Practitioner Family; Visit Provider Surgery | DX: K22.10 Ulcer of esophagus without bleeding (principal); K21.9 Gastro-esophageal reflux disease without esophagitis | CPT/HCPCS: 99212; 99213 ==

== ENCOUNTER 2023-05-02 14:43 | Emergency (ER) | payer OTHER, MEDICAID, SELFPAY ==
[2023-05-02 14:50] VITALS: BP 119/82; PULSE 108; RESP 16; TEMP 36.7; O2SAT 97
== END 2023-05-02 17:06 | disposition left against medical advice (07) ==
LOC: ER 14:59
PROVIDERS: PCP Nurse Practitioner Family
DX: Z53.21 Procedure and treatment not carried out due to patient leaving prior to being seen by health care provider (principal)

== ENCOUNTER 2023-05-03 04:59 | Emergency (ER) | payer OTHER, MEDICAID, SELFPAY ==
[2023-05-03 05:02] VITALS: BP 140/94; PULSE 85; RESP 17; TEMP 36.6; O2SAT 98
[2023-05-03] MEDS: LORazepam 1 MG TAB PO (05:20)
[2023-05-03] MEDS: Ketorolac 15 MG/ML VIAL IM (05:20)
[2023-05-03] MEDS: Dexamethasone 10 MG/ML VIAL PO (05:20)
--- NOTE | 2023-05-03 05:22 | W.ED.GENAD ---
Discharge Plan Disposition Patient Disposition: Home Condition: Improving Discharge Details Chief Complaint: Nk/Back Pain Clinical Impression: Back pain Primary Care Provider: Lucy Courtney ED Provider: Luan Hill Home Meds and New Rx's Prescriptions: No Action topiramate [Topamax] 100 mg tablet 100 mg PO BID sucralfate [Carafate] 1 gram tablet 1 g PO QACHS Qty: 120 12RF dexlansoprazole [Dexilant] 30 mg capsule,biphase delayed releas 30 mg PO DAILY Qty: 30 12RF gabapentin 300 mg capsule 600 mg PO TID fluticasone propionate 50 mcg/actuation spray,suspension 2 spray intranasal DAILY Rx Instructions: administer into each nostril famotidine 20 mg tablet 20 mg PO DAILY acetaminophen 500 mg tablet 1,000 mg PO Q8H PRN (Reason: pain) Qty: 90 3RF Incruse Ellipta 62.5 mcg/actuation blister with device 1 inh INHALATION DAILY Patient Comments: INHALE ONE PUFF BY MOUTH EVERY DAY montelukast 10 mg tablet 10 mg PO DAILY Patient Comments: TAKE ONE TABLET BY MOUTH EVERY DAY prochlorperazine maleate [Compazine] 10 mg tablet 10 mg PO Q6H PRNQty: 10 0RF albuterol sulfate [Proventil HFA] 200 PUFF HFA aerosol inhaler 2 puff Inhalation PRN PRN Discharge Instructions Instructions: Back Pain (ED) Medical Decision Making 52-year-old female presents with acute on chronic atraumatic lower back pain with radiation down into the right buttock. No falls no trauma. No bowel or bladder issues. Afebrile nontoxic. Neurologically intact. Ambulatory. Likely sciatica. Must also consider muscle strain. No evidence of cauda equina or infectious process. Trial of anti-inflammatory analgesics. 6: 03 pain improving. Range of motion improving. HPI General Date/Time Provider Initiated Documentation: 05/03/23 05:03. HPI Narrative: 52-year-old female presents with lower back pain rating down into right buttock. No falls, no trauma no bowel or bladder issues. No fevers no chills Related Data Home Medications Medication Instructions Recorded Confirmed albuterol sulfate 90 mcg/actuation 2 puff inhalation PRN PRN 02/15/17 03/14/23 aerosol inhaler (Proventil HFA) acetaminophen 500 mg tablet 1,000 mg PO Q8H PRN pain #90 tabs 11/15/19 03/14/23 topiramate 100 mg tablet (Topamax) 100 mg PO BID 12/26/20 03/14/23 montelukast 10 mg tablet 10 mg PO DAILY 05/18/21 03/14/23 umeclidinium 62.5 mcg/actuation 1 inh inhalation DAILY 05/18/21 03/14/23 blister powder for inhalation (Incruse Ellipta) fluticasone propionate 50 2 spray intranasal DAILY 11/02/22 03/14/23 mcg/actuation nasal spray,suspension gabapentin 300 mg capsule 600 mg PO TID 11/02/22 03/14/23 famotidine 20 mg tablet 20 mg PO DAILY 01/12/23 03/14/23 sucralfate 1 gram tablet (Carafate) 1 g PO QACHS #120 tabs 01/21/23 03/14/23 prochlorperazine maleate 10 mg 10 mg PO Q6H PRN #10 tabs 03/09/23 03/14/23 tablet (Compazine) dexlansoprazole 30 mg 30 mg PO DAILY #30 caps 03/14/23 03/14/23 capsule,biphase delayed release (Dexilant) Previous Rx's Medication Instructions Recorded acetaminophen 500 mg tablet 1,000 mg PO Q8H PRN pain #90 tabs 11/15/19 sucralfate 1 gram tablet (Carafate) 1 g PO QACHS #120 tabs 01/21/23 prochlorperazine maleate 10 mg 10 mg PO Q6H PRN #10 tabs 03/09/23 tablet (Compazine) dexlansoprazole 30 mg 30 mg PO DAILY #30 caps 03/14/23 capsule,biphase delayed release (Dexilant) Allergies Allergy/AdvReac Type Severity Reaction Status Date / Time adhesive Allergy Intermediate gets red Verified 03/14/23 08:58 and welts up codeine Allergy Intermediate Itching Unverified 03/14/23 08:58 oxycodone HCl [From Percocet] Allergy Intermediate Anaphylaxsi Unverified 03/14/23 08:58 s morphine Allergy Itching Verified 03/14/23 08:58 cyclobenzaprine AdvReac Headache Unverified 03/14/23 08:58 [From Flexeril] General Stated Complaint: Nk/Back Pain CRISTI: 4 Review of Systems Narrative: Review of Systems Constitutional: negative Eyes: negative ENT: negative Cardiovascular: negative Respiratory: negative Gastrointestinal: negative : negative Musculoskeletal: Back pain Skin: negative Neurologic: negative Psych: negative PFSH All Active Problems (Updated 05/03/23 @ 06:04 by Luan Hill MD) Back pain (Acute) Erosive esophagitis (Acute) Vertigo (Chronic) Diplopia (Acute) Thyroid nodule (Acute) Tobacco abuse (Acute) Atypical migraine (Acute) Migraine headache with aura (Acute) Migraine headache without aura (Acute) Chronic headache (Acute) Lumbar degenerative disc disease (Acute) Chronic low back pain (Acute) Effusion, left knee (Acute) History of total left knee replacement (TKR) (Acute 11/14/19) Dr. 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 (Acute) Postprandial RUQ pain (Acute) Family history of gallbladder disease in sister (Acute) Medical History Arthralgia Asthma Chronic pain Cigarette smoker Depression Dyspepsia Family history of breast cancer Family history of colon cancer Hidradenitis suppurativa Hyperthyroidism Intertrigo Left lateral epicondylitis s/p debridement 11/30/18 Malaise and fatigue Migraine Obese Obstructive sleep apnea No CPAP at this time Postmenopausal bleeding resolved Prediabetes PTSD (post-traumatic stress disorder) Syncope Tear of medial meniscus of left knee Aspiration: 04/09/2019; 02/05/19 Depo-Medrol injection: 04/09/2019; 02/05/19 Tendinitis of both rotator cuffs (06/30/18) Thyroid nodule TIA (transient ischemic attack) 06/15-per pt. no residual deficiets and has not beenrequired to f/u with neuro Tobacco use Surgical History Colonoscopy - MAC (02/14/18) EGD - MAC (02/14/18) History of back surgery lower back, 07/2020 History of esophagogastroduodenoscopy (EGD) (~02/09/21) Replacement of total knee joint R Rotator Cuff Repair 2x on R, 1 x on L, pt report 2 on the left side S/P left knee arthroscopy partial medial menisectomy and trochlear chondroplasty DOS: 05/17/19 Aspiration/Injection: 06/15/19 Status post left rotator cuff repair DOS: 11/30/2018 Dr. Brunson corticosteroid injection: 02/21/19 Family History Father Rheumatoid arthritis Brother Rheumatoid arthritis Social History Smoking/Tobacco Use Status: Current-Occasional Tobacco Type: cigarettes Tobacco: How many years used: 25 Smoking risk assessment performed?: Yes Alcohol Intake: current Alcohol Intake frequency: holidays/special occasions only Drug use: Occasionally Substance use type: marijuana Details: 02/23/23: last smoked marijuana 02/22/23 02/23/23: Pt reports she was in ER a few weeks ago with chest pains. Current gender identity: female Do you feel safe at home: Yes (lives with mom) Do you feel safe in your relationship?: Yes Exam Narrative Exam Narrative: Physical Examination General: alert, awake, cooperative, resting comfortably, no acute distress HEENT: normocephalic, atraumatic Neck: supple, trachea midline; full ROM Chest: normal to inspection Respiratory: normal respiratory effort, speaking in full sentences Skin: no lesions, rashes or trauma appreciated Neuro: AAOx3, normal speech, moving all extremities Extremities: Full range of motion lower extremities Psych: Appropriate mood and affect Course Vital Signs Vital signs: Vital Signs Temperature 36.6 C 05/03/23 05:02 Pulse 85 05/03/23 05:02 Respiratory Rate 17 05/03/23 05:02 Blood Pressure 140/94 H 05/03/23 05:02 Pulse Oximetry 98 05/03/23 05:02 Temperature 36.6 C 05/03/23 05:02 Temperature Source Oral 05/03/23 05:02 Pulse 85 05/03/23 05:02 Respiratory Rate 17 05/03/23 05:02 Respiratory Effort Normal 05/03/23 05:04 Blood Pressure 140/94 H 05/03/23 05:02 Blood Pressure Position Supine 05/03/23 05:02 Pulse Oximetry 98 05/03/23 05:02 Oxygen Delivery Method Room Air 05/03/23 05:02 Oxygen Flow Rate 0 05/03/23 05:02 Pain Level 10 05/03/23 05:02
[2023-05-03 06:09] VITALS: BP 126/75; PULSE 76; RESP 17; O2SAT 98
== END 2023-05-03 06:11 | disposition home or self-care (01) ==
PROVIDERS: Emergency Provider Emergency Medicine; PCP Nurse Practitioner Family
DX: M54.59 Other low back pain (principal)
CPT/HCPCS: 96372; 99284; J1100; J1885

== ENCOUNTER → 2023-05-09 09:08 | Outpatient (BNVA) | payer OTHER, MEDICAID, SELFPAY | PROVIDERS: PCP Nurse Practitioner Family; Visit Provider Student in an Organized Health Care Education/Training Program | DX: M25.861 Other specified joint disorders, right knee (principal); Z96.652 Presence of left artificial knee joint; Z96.651 Presence of right artificial knee joint; M54.9 Dorsalgia, unspecified | CPT/HCPCS: 99213 ==

== ENCOUNTER 2023-05-28 06:46 | Emergency (ER) | payer OTHER, MEDICAID, SELFPAY ==
[2023-05-28 06:49] VITALS: BP 130/86; PULSE 88; RESP 18; TEMP 36.7; O2SAT 99
--- NOTE | 2023-05-28 07:07 | ED.GENADUL_ITS ---
Discharge Plan Disposition Patient Disposition: Home Condition: Improving Discharge Details Clinical Impression: Corneal abrasion Primary Care Provider: Lucy Courtney ED Provider: Khari Vasquez Meds and New Rx's Prescriptions: Continued topiramate [Topamax] 100 mg tablet 100 mg PO BID sucralfate [Carafate] 1 gram tablet 1 g PO QACHS Qty: 120 12RF dexlansoprazole [Dexilant] 30 mg capsule,biphase delayed releas 30 mg PO DAILY Qty: 30 12RF gabapentin 300 mg capsule 600 mg PO TID fluticasone propionate 50 mcg/actuation spray,suspension 2 spray intranasal DAILY Rx Instructions: administer into each nostril famotidine 20 mg tablet 20 mg PO DAILY acetaminophen 500 mg tablet 1,000 mg PO Q8H PRN (Reason: pain) Qty: 90 3RF Incruse Ellipta 62.5 mcg/actuation blister with device 1 inh INHALATION DAILY Patient Comments: INHALE ONE PUFF BY MOUTH EVERY DAY montelukast 10 mg tablet 10 mg PO DAILY Patient Comments: TAKE ONE TABLET BY MOUTH EVERY DAY prochlorperazine maleate [Compazine] 10 mg tablet 10 mg PO Q6H PRNQty: 10 0RF albuterol sulfate [Proventil HFA] 200 PUFF HFA aerosol inhaler 2 puff Inhalation PRN PRN promethazine 25 mg/mL Syringe 25 mg IM PRN PRN Discharge Instructions Instructions: Corneal Abrasion (ED) Discharge Data Discharge Physician: Khari Vasquez Medical Decision Making Patient who comes in after she scratched her right eye to remove her contact lenses who has a history of small corneal abrasion but no ulceration. Slit-lamp exam was performed by me and noted the uptake of fluorescein stain of the right eye. Patient received tetracaine and fluorescein and will received erythromycin ointment to apply 3 times a day for 2 days. I advised that she needs to wear sunglasses and hopefully the corneal abrasion will heal. Medical Records Medical records reviewed: Yes I reviewed the patient's medical records. HPI General Date/Time Provider Initiated Documentation: 05/28/23 07:05 . HPI Narrative: Patient presents emergency department complaining of right eye redness and irritation after she could not remove her contact lens when she removed it and scratched her eye. Today reports teary and red and mildly painful. Related Data Home Medications Medication Instructions Recorded Confirmed albuterol sulfate 90 mcg/actuation 2 puff inhalation PRN PRN 02/15/17 05/28/23 aerosol inhaler (Proventil HFA) acetaminophen 500 mg tablet 1,000 mg PO Q8H PRN pain #90 tabs 11/15/19 05/28/23 topiramate 100 mg tablet (Topamax) 100 mg PO BID 12/26/20 05/28/23 montelukast 10 mg tablet 10 mg PO DAILY 05/18/21 05/28/23 umeclidinium 62.5 mcg/actuation 1 inh inhalation DAILY 05/18/21 05/28/23 blister powder for inhalation (Incruse Ellipta) fluticasone propionate 50 2 spray intranasal DAILY 11/02/22 05/28/23 mcg/actuation nasal spray,suspension gabapentin 300 mg capsule 600 mg PO TID 11/02/22 05/28/23 famotidine 20 mg tablet 20 mg PO DAILY 01/12/23 05/28/23 sucralfate 1 gram tablet (Carafate) 1 g PO QACHS #120 tabs 01/21/23 05/28/23 prochlorperazine maleate 10 mg 10 mg PO Q6H PRN #10 tabs 03/09/23 05/28/23 tablet (Compazine) dexlansoprazole 30 mg 30 mg PO DAILY #30 caps 03/14/23 05/28/23 capsule,biphase delayed release (Dexilant) promethazine 25 mg/mL injection 25 mg IM PRN PRN 05/28/23 05/28/23 syringe Previous Rx's Medication Instructions Recorded acetaminophen 500 mg tablet 1,000 mg PO Q8H PRN pain #90 tabs 11/15/19 sucralfate 1 gram tablet (Carafate) 1 g PO QACHS #120 tabs 01/21/23 prochlorperazine maleate 10 mg 10 mg PO Q6H PRN #10 tabs 03/09/23 tablet (Compazine) dexlansoprazole 30 mg 30 mg PO DAILY #30 caps 03/14/23 capsule,biphase delayed release (Dexilant) Allergies Allergy/AdvReac Type Severity Reaction Status Date / Time adhesive Allergy Intermediate gets red Verified 05/28/23 07:02 and welts up codeine Allergy Intermediate Itching Unverified 05/28/23 07:02 oxycodone HCl [From Percocet] Allergy Intermediate Anaphylaxsi Unverified 05/28/23 07:02 s morphine Allergy Itching Verified 05/28/23 07:02 cyclobenzaprine AdvReac Headache Unverified 05/28/23 07:02 [From Flexeril] General Stated Complaint: EyeProblem CRISTI: 4 Review of Systems All systems reviewed & are unremarkable except as noted in HPI and below PFSH All Active Problems (Updated 05/28/23 @ 07:18 by Khari Vasquez MD) Back pain (Acute) Corneal abrasion (Acute) Erosive esophagitis (Acute) Vertigo (Chronic) Diplopia (Acute) Thyroid nodule (Acute) Tobacco abuse (Acute) Atypical migraine (Acute) Migraine headache with aura (Acute) Migraine headache without aura (Acute) Chronic headache (Acute) Lumbar degenerative disc disease (Acute) Chronic low back pain (Acute) Effusion, left knee (Acute) History of total left knee replacement (TKR) (Acute 11/14/19) Dr. 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 (Acute) Postprandial RUQ pain (Acute) Family history of gallbladder disease in sister (Acute) Medical History Arthralgia Asthma Chronic pain Cigarette smoker Depression Dyspepsia Family history of breast cancer Family history of colon cancer Hidradenitis suppurativa Hyperthyroidism Intertrigo Left lateral epicondylitis s/p debridement 11/30/18 Malaise and fatigue Migraine Obese Obstructive sleep apnea No CPAP at this time Postmenopausal bleeding resolved Prediabetes PTSD (post-traumatic stress disorder) Syncope Tear of medial meniscus of left knee Aspiration: 04/09/2019; 02/05/19 Depo-Medrol injection: 04/09/2019; 02/05/19 Tendinitis of both rotator cuffs (06/30/18) Thyroid nodule TIA (transient ischemic attack) 06/15-per pt. no residual deficiets and has not beenrequired to f/u with neuro Tobacco use Surgical History Colonoscopy - MAC (02/14/18) EGD - MAC (02/14/18) History of back surgery lower back, 07/2020 History of esophagogastroduodenoscopy (EGD) (~02/09/21) Replacement of total knee joint R Rotator Cuff Repair 2x on R, 1 x on L, pt report 2 on the left side S/P left knee arthroscopy partial medial menisectomy and trochlear chondroplasty DOS: 05/17/19 Aspiration/Injection: 06/15/19 Status post left rotator cuff repair DOS: 11/30/2018 Dr. Brunson corticosteroid injection: 02/21/19 Family History Father Rheumatoid arthritis Brother Rheumatoid arthritis Social History Smoking/Tobacco Use Status: Current-Occasional Tobacco Type: cigarettes Tobacco: How many years used: 25 Smoking risk assessment performed?: Yes Alcohol Intake: current Alcohol Intake frequency: holidays/special occasions only Drug use: Occasionally Substance use type: marijuana Details: 02/23/23: last smoked marijuana 02/22/23 02/23/23: Pt reports she was in ER a few weeks ago with chest pains. Housing: house Current gender identity: female Do you feel safe at home: Yes (lives with mom) Do you feel safe in your relationship?: Yes Exam Narrative Exam Narrative: Exam; vitals signs as reported above Constitutional; In no acute distress, afebrile General: cooperative, healthy appearing, comfortable and no acute distress HEENT: Head: normal to inspection, no palpable skull fracture and normocephalic Eyes: l: appearance normal, both eyes and all related structures slit exam does not show any foreign body but fluorescein stain does show uptake in the cornea in the lateral aspect at 3:00 with a scratch but no ulceration ]Pupils: PERRL EOM: EOM intact bilaterally visual acuity is normal with 20/25 both eyes Direct ophthalmoscopy: normal light reflex, normal conjunctiva, normal visual acuity Neck no JVD, supple Neck: normal visual inspection, full ROM and no lymphadenopathy Chest Chest: normal inspection of the chest Respiratory : normal respiratory effort and able to speak in complete sentences Cardio Rate: regular rate Rhythm: regular rhythm normal heart sounds S1 and S2 no murmurs, gallops, or rubs GI Inspection: normal to inspection, normal bowel sounds, soft, non tender, non distended, no organomegally Back/Spine/ no CVA tenderness Thoracic/Lumbar Spine: no tenderness or deformities Skin no rashes or lesions Neuro: patient alert and no meningeal signs, Cranial Nerves: CN's II-XI intact bilaterally, Cognition: normal cognition, Speech: speech normal, Gait: normal gait, Depp tendon reflexes normal 2+ Extremities, no edema, full range of motion, normal strength Course Vital Signs Vital signs: Vital Signs Temperature 36.7 C 05/28/23 06:49 Pulse 88 05/28/23 06:49 Respiratory Rate 18 05/28/23 06:49 Blood Pressure 130/86 05/28/23 06:49 Pulse Oximetry 99 05/28/23 06:49 Temperature 36.7 C 05/28/23 06:49 Temperature Source Temporal Artery Scan 05/28/23 06:49 Pulse 88 05/28/23 06:49 Respiratory Rate 18 05/28/23 06:49 Blood Pressure 130/86 05/28/23 06:49 Blood Pressure Position Sitting 05/28/23 06:49 Pulse Oximetry 99 05/28/23 06:49 Oxygen Delivery Method Room Air 05/28/23 06:49 Oxygen Flow Rate 0 05/28/23 06:49 Pain Level 8 05/28/23 06:49
[2023-05-28] MEDS: Fluorescein STRIPS 100/BOX 1 MG OP (07:11)
[2023-05-28] MEDS: Tetracaine 0.5% 4 ML BTL (07:15)
[2023-05-28] MEDS: Erythromycin Ophth Oint 3.5 GM TUBE (07:24)
== END 2023-05-28 07:27 | disposition home or self-care (01) ==
PROVIDERS: Emergency Provider Emergency Medicine Emergency Medical Services; PCP Nurse Practitioner Family
DX: S05.01XA Injury of conjunctiva and corneal abrasion without foreign body, right eye, initial encounter (principal); X58.XXXA Exposure to other specified factors, initial encounter
CPT/HCPCS: 99283

== ENCOUNTER 2023-07-01 18:49 | Emergency (ER) | payer OTHER, MEDICAID, SELFPAY ==
[2023-07-01 18:52] VITALS: BP 106/77; PULSE 77; RESP 20; TEMP 37.1; O2SAT 99
--- NOTE | 2023-07-01 19:47 | ED.GENADUL_ITS ---
Discharge Plan Disposition Patient Disposition: Home Discharge Details Clinical Impression: Urticaria Primary Care Provider: Lucy Courtney ED Provider: Jojo Joyner Home Meds and New Rx's Prescriptions: Continued topiramate [Topamax] 100 mg tablet 100 mg PO BID sucralfate [Carafate] 1 gram tablet 1 g PO QACHS Qty: 120 12RF dexlansoprazole [Dexilant] 30 mg capsule,biphase delayed releas 30 mg PO DAILY Qty: 30 12RF gabapentin 300 mg capsule 600 mg PO TID fluticasone propionate 50 mcg/actuation spray,suspension 2 spray intranasal DAILY Rx Instructions: administer into each nostril famotidine 20 mg tablet 20 mg PO DAILY acetaminophen 500 mg tablet 1,000 mg PO Q8H PRN (Reason: pain) Qty: 90 3RF Incruse Ellipta 62.5 mcg/actuation blister with device 1 inh INHALATION DAILY Patient Comments: INHALE ONE PUFF BY MOUTH EVERY DAY montelukast 10 mg tablet 10 mg PO DAILY Patient Comments: TAKE ONE TABLET BY MOUTH EVERY DAY prochlorperazine maleate [Compazine] 10 mg tablet 10 mg PO Q6H PRNQty: 10 0RF albuterol sulfate [Proventil HFA] 200 PUFF HFA aerosol inhaler 2 puff Inhalation PRN PRN promethazine 25 mg/mL Syringe 25 mg IM PRN PRN Discharge Instructions Instructions: Urticaria (ED) Additional Instructions: Take Zyrtec, Claritin, or Pepcid daily in addition to your hydroxyzine and prednisone You may apply topical hydrocortisone cream and take oatmeal bath and use calamine lotion You may also take 5 to 10 mg of melatonin just prior to bed to help you sleep Please follow-up with your doctor for an allergy referral Please return earlier should you have new or worsening complaints Referrals: Lucy Courtney [Primary Care Provider] - Medical Decision Making 52-year-old female, alert and oriented, no acute distress, generalized diffuse u rticaria noted, no evidence clinically of anaphylaxis On appropriate outpatient therapy, prednisone and hydroxyzine, taking the hydroxyzine infrequently secondary to drowsiness when taking these medications Added Pepcid onto her regimen, encourage small amount of topical lidocaine over the areas that are most bothersome and hydrocortisone Encouraged following up with an inventory specialist No clinical signs or symptoms consistent with acute anaphylaxis Return precautions reviewed and patient expressed understanding, vital stable at time of discharge home HPI General Date/Time Provider Initiated Documentation: 07/01/23 18:49 . HPI Narrative: This 33-year-old female presents with reports of generalized urticaria since Tuesday, second episode in the past 3 months of hives. Denies any difficulty swallowing for significant shortness of breath. History of asthma and has been experiencing some asthma. Denies any history of anaphylaxis aside from with oxycodone in the past. Has been taking prednisone 50 mg daily for the past 3 days but presents this evening secondary to persistent pruritus which is keeping her up at night. Related Data Home Medications Medication Instructions Recorded Confirmed albuterol sulfate 90 mcg/actuation 2 puff inhalation PRN PRN 02/15/17 05/28/23 aerosol inhaler (Proventil HFA) acetaminophen 500 mg tablet 1,000 mg PO Q8H PRN pain #90 tabs 11/15/19 05/28/23 topiramate 100 mg tablet (Topamax) 100 mg PO BID 12/26/20 05/28/23 montelukast 10 mg tablet 10 mg PO DAILY 05/18/21 05/28/23 umeclidinium 62.5 mcg/actuation 1 inh inhalation DAILY 05/18/21 05/28/23 blister powder for inhalation (Incruse Ellipta) fluticasone propionate 50 2 spray intranasal DAILY 11/02/22 05/28/23 mcg/actuation nasal spray,suspension gabapentin 300 mg capsule 600 mg PO TID 11/02/22 05/28/23 famotidine 20 mg tablet 20 mg PO DAILY 01/12/23 05/28/23 sucralfate 1 gram tablet (Carafate) 1 g PO QACHS #120 tabs 01/21/23 05/28/23 prochlorperazine maleate 10 mg 10 mg PO Q6H PRN #10 tabs 03/09/23 05/28/23 tablet (Compazine) dexlansoprazole 30 mg 30 mg PO DAILY #30 caps 03/14/23 05/28/23 capsule,biphase delayed release (Dexilant) promethazine 25 mg/mL injection 25 mg IM PRN PRN 05/28/23 05/28/23 syringe Previous Rx's Medication Instructions Recorded acetaminophen 500 mg tablet 1,000 mg PO Q8H PRN pain #90 tabs 11/15/19 sucralfate 1 gram tablet (Carafate) 1 g PO QACHS #120 tabs 01/21/23 prochlorperazine maleate 10 mg 10 mg PO Q6H PRN #10 tabs 03/09/23 tablet (Compazine) dexlansoprazole 30 mg 30 mg PO DAILY #30 caps 03/14/23 capsule,biphase delayed release (Dexilant) Allergies Allergy/AdvReac Type Severity Reaction Status Date / Time adhesive Allergy Intermediate gets red Verified 07/01/23 18:57 and welts up codeine Allergy Intermediate Itching Unverified 07/01/23 18:57 oxycodone HCl [From Percocet] Allergy Intermediate Anaphylaxsi Unverified 07/01/23 18:57 s morphine Allergy Itching Verified 07/01/23 18:57 cyclobenzaprine AdvReac Headache Unverified 07/01/23 18:57 [From Flexeril] General Stated Complaint: Allergic CRISTI: 4 PFSH All Active Problems (Updated 07/01/23 @ 19:23 by ANTONINO Srivastava) Urticaria (Acute) Erosive esophagitis (Acute) Vertigo (Chronic) Diplopia (Acute) Thyroid nodule (Acute) Tobacco abuse (Acute) Atypical migraine (Acute) Migraine headache with aura (Acute) Migraine headache without aura (Acute) Chronic headache (Acute) Lumbar degenerative disc disease (Acute) Chronic low back pain (Acute) Effusion, left knee (Acute) History of total left knee replacement (TKR) (Acute 11/14/19) Dr. 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 (Acute) Postprandial RUQ pain (Acute) Family history of gallbladder disease in sister (Acute) Medical History Arthralgia Asthma Chronic pain Cigarette smoker Depression Dyspepsia Family history of breast cancer Family history of colon cancer Hidradenitis suppurativa Hyperthyroidism Intertrigo Left lateral epicondylitis s/p debridement 11/30/18 Malaise and fatigue Migraine Obese Obstructive sleep apnea No CPAP at this time Postmenopausal bleeding resolved Prediabetes PTSD (post-traumatic stress disorder) Syncope Tear of medial meniscus of left knee Aspiration: 04/09/2019; 02/05/19 Depo-Medrol injection: 04/09/2019; 02/05/19 Tendinitis of both rotator cuffs (06/30/18) Thyroid nodule TIA (transient ischemic attack) 06/15-per pt. no residual deficiets and has not beenrequired to f/u with neuro Tobacco use Surgical History Colonoscopy - MAC (02/14/18) EGD - MAC (02/14/18) History of back surgery lower back, 07/2020 History of esophagogastroduodenoscopy (EGD) (~02/09/21) Replacement of total knee joint R Rotator Cuff Repair 2x on R, 1 x on L, pt report 2 on the left side S/P left knee arthroscopy partial medial menisectomy and trochlear chondroplasty DOS: 05/17/19 Aspiration/Injection: 06/15/19 Status post left rotator cuff repair DOS: 11/30/2018 Dr. Brunson corticosteroid injection: 02/21/19 Family History Father Rheumatoid arthritis Brother Rheumatoid arthritis Social History Smoking/Tobacco Use Status: Current-Occasional Tobacco Type: cigarettes Tobacco: How many years used: 25 Smoking risk assessment performed?: Yes Alcohol Intake: current Alcohol Intake frequency: holidays/special occasions only Drug use: Occasionally Substance use type: marijuana Details: 02/23/23: last smoked marijuana 02/22/23 02/23/23: Pt reports she was in ER a few weeks ago with chest pains. Housing: house Current gender identity: female Do you feel safe at home: Yes (lives with mom) Do you feel safe in your relationship?: Yes Course Vital Signs Vital signs: Vital Signs Temperature 37.1 C 07/01/23 18:52 Pulse 77 07/01/23 18:52 Respiratory Rate 20 07/01/23 18:52 Blood Pressure 106/77 07/01/23 18:52 Pulse Oximetry 99 07/01/23 18:52 Temperature 37.1 C 07/01/23 18:52 Temperature Source Oral 07/01/23 18:52 Pulse 77 07/01/23 18:52 Respiratory Rate 20 07/01/23 18:52 Respiratory Effort Normal 07/01/23 19:00 Blood Pressure 106/77 07/01/23 18:52 Blood Pressure Position Sitting 07/01/23 18:52 Pulse Oximetry 99 07/01/23 18:52 Oxygen Delivery Method Room Air 07/01/23 18:52 Oxygen Flow Rate 0 07/01/23 18:52 Pain Level 3 07/01/23 18:52
[2023-07-01] MEDS: hydrOXYzine 25 MG/ML VIAL IM (19:50)
[2023-07-01] MEDS: Famotidine 20 MG TAB PO (19:50)
== END 2023-07-01 19:54 | disposition home or self-care (01) ==
PROVIDERS: Emergency Provider Physician Assistant; PCP Nurse Practitioner Family
DX: L50.9 Urticaria, unspecified (principal)
CPT/HCPCS: 96372; 99284; J3410

== ENCOUNTER → 2023-07-22 15:43 | Outpatient (CLI) | payer OTHER, MEDICAID, SELFPAY ==
--- NOTE | 2023-07-22 12:50 | DI.RAD_ITS ---
Exam(s) XR CHEST 2V PA LATERAL EXAM: XR CHEST 2V PA LATERAL CLINICAL HISTORY: PNEUMONIA J18.9 TECHNIQUE: 2D digital imaging was performed of the chest. Two images were obtained. PA and lateral views were obtained. COMPARISON: CR XR CHEST 2V PA LATERAL from 12/26/2019 FINDINGS: MEDIASTINUM: Normal. HEART: Normal. PULMONARY VASCULATURE: Normal. LUNGS: Clear. PLEURAL SPACE: No pleural effusion or pneumothorax. BONE:Within normal limits for the patient's age. OTHER FINDINGS:Normal. IMPRESSION: No acute pulmonary findings. DATA REPOSITORY: RADIATION DOSE DELIVERED:
== END ==
PROVIDERS: PCP Nurse Practitioner Family; Visit Provider Family Medicine
DX: J18.9 Pneumonia, unspecified organism (principal)
CPT/HCPCS: 71046

== ENCOUNTER 2023-08-29 15:45 | Outpatient (REF) | payer OTHER, MEDICAID, SELFPAY ==
--- NOTE | 2023-08-29 15:00 | PAPFT_PTH ---
PATIENT: Dinesh John LOC: [facility]#:[id number] AGE/SX: 53/F ROOM: RE08/29/[address]: Lucy Courtney : 1970 BED: DIS: 08/29/2023 SPEC #: [id number] RECD: 08/30/23 12:54 STATUS: SANDRA REJose #: [id number] LORRAINE: 08/29/23 15:[address]: Lucy Courtney DEPT: [facility] Cytology RECD BY: Jojo Gandara Tissues: 1 - CX/ENDOCX FOR PAP SMEARS Procedures: PAP THIN PREP/UVM Screening HPV DNA PROBE Comments: [id number]
[2023-08-31 14:16] LABS: Chlamydia Result Negative (Negative); GC Result Negative (Negative)
== END 2023-08-29 15:46 | disposition home or self-care (01) ==
LOC: NCHCN 15:45
PROVIDERS: PCP Nurse Practitioner Family; Visit Provider Nurse Practitioner Family
DX: N95.8 Other specified menopausal and perimenopausal disorders (principal); L29.2 Pruritus vulvae; Z11.3 Encounter for screening for infections with a predominantly sexual mode of transmission; R82.79 Other abnormal findings on microbiological examination of urine; Z11.51 Encounter for screening for human papillomavirus (HPV); Z01.419 Encounter for gynecological examination (general) (routine) without abnormal findings; N95.0 Postmenopausal bleeding; B37.31 Acute candidiasis of vulva and vagina; N94.89 Other specified conditions associated with female genital organs and menstrual cycle
CPT/HCPCS: 87491; 87591; 88142; 87086; 87480; 87510; 87624; 87660

== ENCOUNTER → 2023-09-05 03:19 | Outpatient (CLI) | payer OTHER, MEDICAID, SELFPAY ==
--- NOTE | 2023-09-05 | DI.US_ITS ---
Exam(s) US PELVIS TRANSVAGINAL EXAM: US PELVIS TRANSVAGINAL CLINICAL HISTORY: POSTMENOPAUSAL BLEEDING, N95.9, VAGINAL ITCHING, L29.8 TECHNIQUE: Transabdominal and transvaginal imaging was performed using standard protocol. COMPARISON: No exams were available for comparison FINDINGS: UTERUS: Anteverted. 6.7 x 3.3 x 4.7 cm Endometrium: 4 mm Myometrium: Unremarkable. Cervix: Unremarkable. OVARIES: Right: Cyst or mass: None. Left: Cyst or mass: None. DOPPLER: Color: Symmetric and uniform flow to both ovaries. No hyperemia. CUL-DE-SAC: Free fluid: None. IMPRESSION: 1. Normal-appearing uterus with endometrial stripe within normal limits. 2. Unremarkable bilateral ovaries. DATA REPOSITORY:
== END ==
PROVIDERS: PCP Nurse Practitioner Family; Visit Provider Nurse Practitioner Family
DX: N95.9 Unspecified menopausal and perimenopausal disorder (principal); L29.8 Other pruritus
CPT/HCPCS: 76830; 76856

== ENCOUNTER → 2023-09-27 01:48 | Outpatient (CLI) | payer OTHER, MEDICAID, SELFPAY ==
--- NOTE | 2023-09-27 | DI.US_ITS ---
Exam(s) US THYROID EXAM: US THYROID CLINICAL HISTORY: FORMER SMOKER, Z87.891, HYPERTHYROIDISM, E05.90, THYROID NODULE, E04.1. TECHNIQUE: Ultrasound thyroid performed using standard protocol. COMPARISON: US US THYROID from 05/20/2020 FINDINGS: ISTHMUS: 7 mm RIGHT LOBE: Size: 5 x 1.4 x 1.9 cm Echogenicity: Normal. Vascularity: Normal. Nodules: None. LEFT LOBE: Size: 5.1 x 2.7 x 2.3 cm Echogenicity: Normal. Vascularity: Normal. Nodules: There is a 3.2 x 2.3 x 2.5 cm predominantly solid nodule in the inferior left lobe which is slightly hypoechoic. Punctate echogenic foci are seen. This is consistent with a TI rads level 5 no dule. Due to its size, FNA is recommended. There is a 2nd nodule which lies superior to the 1st and measures 0.8 x 0.7 x 0.9 cm. It is solid, isoechoic and contains echogenic foci. It is consistent with a TI rads level 4 nodule. Due to its size, follow-up is recommended. OTHER FINDINGS: None. IMPRESSION: Biopsy is recommended on a 3.2 x 2.3 x 2.5 cm nodule in the inferior left lobe of the thyroid gland. DATA REPOSITORY:
== END ==
PROVIDERS: PCP Nurse Practitioner Family; Visit Provider Nurse Practitioner Family
DX: E04.1 Nontoxic single thyroid nodule; Z87.891 Personal history of nicotine dependence
CPT/HCPCS: 76536

== ENCOUNTER 2023-11-14 16:01 | Outpatient (REF) | payer OTHER, MEDICAID, SELFPAY ==
[2023-11-14 16:02] LABS: Magnesium 1.9 mg/dL (1.8-2.4); TSH (W/Ref FT4) 0.82 uIU/mL (0.36-3.74); Vitamin B12 466 pg/mL (193-986)
== END 2023-11-14 16:02 | disposition home or self-care (01) ==
LOC: NCHCN 16:01
PROVIDERS: PCP Nurse Practitioner Family; Visit Provider Nurse Practitioner Family
DX: R73.03 Prediabetes (principal); E04.1 Nontoxic single thyroid nodule; F32.9 Major depressive disorder, single episode, unspecified
CPT/HCPCS: 82607; 83735; 84443

== ENCOUNTER 2024-01-04 20:03 | Emergency (ER) | payer OTHER, MEDICAID, SELFPAY ==
[2024-01-04 20:07] VITALS: BP 131/101; PULSE 90; RESP 18; TEMP 37; O2SAT 98
[2024-01-04 20:15] VITALS: BP 114/78
--- NOTE | 2024-01-04 20:16 | ED.GENADUL_ITS ---
HPI General Mode of arrival: ambulatory . Date/Time Provider Initiated Documentation: 01/04/24 20:13 . Limitations to Documentation: no limitations . Information obtained by: patient, RN notes reviewed and old records reviewed . HPI Narrative: 53-year-old female presents to the ER with a chief complaint of lower back pain and muscle spasm after a slip on Tuesday. She did not fall down. She reports that she tweaked her back. Has had increased spasming. She does take tizanidine twice a day for the muscle spasms as she has rods in her lower back which she reports has done little to nothing to help with spasming. She last took 1 at 11 this morning. She has also been taking Tylenol. She reports some pressure to her bottom with bowel movements but denies any loss of bowel or blad natalie control she has a little bit of radiation down her right leg. Denies any weakness tingling or problems urinating. Other past medical history includes hidradenitis suppurativa, tobacco use she does endorse smoking denies alcohol, she had a TIA, asthma obesity depression migraine obstructive sleep apnea PTSD hypothyroidism. Surgeries include total knee replacement, rotator cuff repair in the lumbar rods. Related Data Home Medications Medication Instructions Recorded Confirmed albuterol sulfate 90 mcg/actuation 2 puff inhalation PRN PRN 02/15/17 01/04/24 aerosol inhaler (Proventil HFA) acetaminophen 500 mg tablet 1,000 mg (2 x 500 mg) PO Q8H PRN 11/15/19 01/04/24 pain #90 tabs topiramate 100 mg tablet (Topamax) 100 mg PO BID 12/26/20 01/04/24 montelukast 10 mg tablet 10 mg PO DAILY 05/18/21 01/04/24 umeclidinium 62.5 mcg/actuation 1 inh inhalation DAILY 05/18/21 01/04/24 blister powder for inhalation (Incruse Ellipta) fluticasone propionate 50 2 spray intranasal DAILY 11/02/22 01/04/24 mcg/actuation nasal spray,suspension sucralfate 1 gram tablet (Carafate) 1 g PO QACHS #120 tabs 01/21/23 01/04/24 dexlansoprazole 30 mg 30 mg PO DAILY #30 caps 03/14/23 01/04/24 capsule,biphase delayed release (Dexilant) promethazine 25 mg/mL injection 25 mg IM PRN PRN 05/28/23 01/04/24 syringe diazepam 2 mg tablet (Valium) 2 mg PO BID PRN muscle spasm #3 01/04/24 tabs Previous Rx's Medication Instructions Recorded acetaminophen 500 mg tablet 1,000 mg (2 x 500 mg) PO Q8H PRN 11/15/19 pain #90 tabs sucralfate 1 gram tablet (Carafate) 1 g PO QACHS #120 tabs 01/21/23 dexlansoprazole 30 mg 30 mg PO DAILY #30 caps 03/14/23 capsule,biphase delayed release (Dexilant) diazepam 2 mg tablet (Valium) 2 mg PO BID PRN muscle spasm #3 01/04/24 tabs Allergies Allergy/AdvReac Type Severity Reaction Status Date / Time adhesive Allergy Intermediate gets red Verified 01/04/24 20:13 and welts up codeine Allergy Intermediate Itching Unverified 01/04/24 20:13 oxycodone HCl [From Percocet] Allergy Intermediate Anaphylaxsi Unverified 01/04/24 20:13 s morphine Allergy Itching Verified 01/04/24 20:13 cyclobenzaprine AdvReac Headache Unverified 01/04/24 20:13 [From Flexeril] General Stated Complaint: Nk/Back Pain CRISTI: 3 Review of Systems Musculoskeletal Musculoskeletal: Reports as per HPI (Pain increases with bending forward), Reports back pain, Denies deformity, Denies muscle weakness, Reports radiating pain into limb, Reports stiffness and Denies tingling Neurologic Neurologic: Denies tingling Exam Narrative Exam Narrative: Constitutional: Alert and oriented x3. Appears stated age. Normal body habitus. Head: Normocephalic, no trauma. Eyes: Pupils PERRL, Red reflex noted, EOM's intact. Eyelids symmetrical without lesions, discharge, or swelling. ENT: Bilateral TM's WNL, External ear normal to inspection, no mastoid TTP, swelling, or erythema, Nasal turbinates WNL, no nasal discharge. Normal dentition, Posterior pharynx WNL, no exudate. Chest: RRR, Normal S1, S2, distal pulses intact. Resp: Lungs clear to auscultation bilaterally, no wheezes, rales, or rhonchi. Abdomen: Soft, non-distended, Normoactive bowel sounds all 4 quads. Musculoskeletal: Normal gait, 5/5 strength to all four extremities. Does have some tenderness with palpation over the lumbar spine, paraspinous tenderness. No crepitus no step-off. Skin: No suspicious rashes or lesions. Capillary refill less than 2 sec. does have a vertical healed incision noted to her lower lumbar, no crepitus step-off no surrounding erythema no bulging. Neurologic: Cranial nerves II-XII intact. Alert and oriented x 3. Motor: No deficits noted. Sensory: Intact bilaterally all 4 extremities. Reflexes: DTR's intact bilaterally.. Hematologic/Lymphatic: No ecchymosis, no lymphadenopathy. Course Vital Signs Vital signs: Vital Signs Temperature 37.0 C 01/04/24 20:07 Pulse 90 01/04/24 20:07 Respiratory Rate 18 01/04/24 20:07 Blood Pressure 131/101 H 01/04/24 20:07 Pulse Oximetry 98 01/04/24 20:07 Temperature 37.0 C 01/04/24 20:07 Temperature Source Skin 01/04/24 20:07 Pulse 90 01/04/24 20:07 Respiratory Rate 18 01/04/24 20:07 Respiratory Effort Normal 01/04/24 20:12 Blood Pressure 114/78 01/04/24 20:15 Blood Pressure Position Sitting 01/04/24 20:07 Pulse Oximetry 98 01/04/24 20:07 Oxygen Delivery Method Room Air 01/04/24 20:07 Oxygen Flow Rate 0 01/04/24 20:07 Medical Decision Making 53-year-old female presents to the ER with a chief complaint of lower back pain and muscle spasm after a slip on Tuesday. She did not fall down. She reports that she tweaked her back. Has had increased spasming. She does take tizanidine twice a day for the muscle spasms as she has rods in her lower back which she reports has done little to nothing to help with spasming. She last took 1 at 11 this morning. She has also been taking Tylenol. She reports some pressure to her bottom with bowel movements but denies any loss of bowel or bladder control she has a little bit of radiation down her right leg. Denies any weakness tingling or problems urinating. Other past medical history includes hidradenitis suppurativa, tobacco use she does endorse smoking denies alcohol, she had a TIA, asthma obesity depression migraine obstructive sleep apnea PTSD hypothyroidism. Surgeries include total knee replacement, rotator cuff repair in the lumbar rods. At this time due to no trauma we will forego imaging. Ice pack, Valium 2 mg p.o. and 800 mg ibuprofen p.o. I did offer IM injection which patient request to try p.o. medication first. She did come here with a ride. No evidence clinically for cauda equina she did not fall x-ray or CT is not indicated at this time. Patient is feeling better. Given instructions and strict return instructions. Ambulatory upon discharge in department. This text was generated using [employer] system, please disregard any oddities of phrase or misspellings. Quality:SDOH Health Related Social Needs: No Data to Display PFSH All Active Problems (Updated 01/04/24 @ 21:04 by Tamanna Lemus NP) Lumbago (Acute) Erosive esophagitis (Acute) Vertigo (Chronic) Diplopia (Acute) Thyroid nodule (Acute) Tobacco abuse (Acute) Atypical migraine (Acute) Migraine headache with aura (Acute) Migraine headache without aura (Acute) Chronic headache (Acute) Lumbar degenerative disc disease (Acute) Chronic low back pain (Acute) Effusion, left knee (Acute) History of total left knee replacement (TKR) (Acute 11/14/19) Dr. 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 no residual deficiets and has not beenrequired to f/u with neuro Tear of medial meniscus of left knee Aspiration: 04/09/2019; 02/05/19 Depo-Medrol injection: 04/09/2019; 02/05/19 Left lateral epicondylitis s/p debridement 11/30/18 Tendinitis of both rotator cuffs (06/30/18) Asthma Obese Cigarette smoker Intertrigo Syncope Hyperthyroidism Migraine Depression Chronic pain Postmenopausal bleeding resolved Thyroid nodule Family history of colon cancer PTSD (post-traumatic stress disorder) Obstructive sleep apnea No CPAP at this time Surgical History History of esophagogastroduodenoscopy (EGD) (~02/09/21) History of back surgery lower back, 07/2020 S/P left knee arthroscopy partial medial menisectomy and trochlear chondroplasty DOS: 05/17/19 Aspiration/Injection: 06/15/19 Status post left rotator cuff repair DOS: 11/30/2018 Dr. Brunson corticosteroid injection: 02/21/19 Replacement of total knee joint R Rotator Cuff Repair 2x on R, 1 x on L, pt report 2 on the left side EGD - MAC (02/14/18) Colonoscopy - MAC (02/14/18) Family History Father Rheumatoid arthritis Brother Rheumatoid arthritis Social History Smoking/Tobacco Use Status: Current-Occasional Tobacco Type: cigarettes Tobacco: How many years used: 25 Smoking risk assessment performed?: Yes Alcohol Intake: current Alcohol Intake frequency: holidays/special occasions only Drug use: Occasionally Substance use type: marijuana Details: 02/23/23: last smoked marijuana 02/22/23 02/23/23: Pt reports she was in ER a few weeks ago with chest pains. Housing: house Current gender identity: female Do you feel safe at home: Yes (lives with mom) Do you feel safe in your relationship?: Yes Discharge Plan Disposition Patient Disposition: Home Condition: Stable Discharge Details Clinical Impression: Lumbago Primary Care Provider: Lucy Courtney ED Provider: Tamanna Lemus Home Meds and New Rx's Prescriptions: New diazepam [Valium] 2 mg tablet 2 mg PO BID PRN (Reason: muscle spasm) Qty: 3 0RF Rx Instructions: Take 1 tablet twice a day as needed for severe muscle spasm, do not drive while taking medication or drink alcohol. No Action topiramate [Topamax] 100 mg tablet 100 mg PO BID sucralfate [Carafate] 1 gram tablet 1 g PO QACHS Qty: 120 12RF dexlansoprazole [Dexilant] 30 mg capsule,biphase delayed releas 30 mg PO DAILY Qty: 30 12RF fluticasone propionate 50 mcg/actuation spray,suspension 2 spray intranasal DAILY Rx Instructions: administer into each nostril acetaminophen 500 mg tablet 1,000 mg PO Q8H PRN (Reason: pain) Qty: 90 3RF Incruse Ellipta 62.5 mcg/actuation blister with device 1 inh INHALATION DAILY Patient Comments: INHALE ONE PUFF BY MOUTH EVERY DAY montelukast 10 mg tablet 10 mg PO DAILY Patient Comments: TAKE ONE TABLET BY MOUTH EVERY DAY albuterol sulfate [Proventil HFA] 200 PUFF HFA aerosol inhaler 2 puff Inhalation PRN PRN promethazine 25 mg/mL Syringe 25 mg IM PRN PRN Discharge Instructions Instructions: Low Back Strain (ED) Additional Instructions: Please take the antispasm medication as directed. These may make you sleepy. No driving or operating heavy machinery or drinking alcohol while on these medications. Please be cautious when taking them with your other muscle relaxer. Follow up with primary care provider in 3-5 days. Return to ED sooner if any worsening back pain, loss of bowel or bladder control, weakness in your legs or concerns. Increase oral fluids. Alternate ice and heat. Please take Tylenol or Ibuprofen with food every 4-6 hours as needed for pain and swelling. Referrals: Lucy Courtney [Primary Care Provider] - 3 days Discharge Data Discharge Date/Time-TO BE ENTERED AT DEPARTURE: 01/04/24 21:29
[2024-01-04] MEDS: diazePAM 2 MG TAB PO (20:21)
[2024-01-04] MEDS: Ibuprofen 800 MG TAB PO (20:21)
== END 2024-01-04 21:29 | disposition home or self-care (01) ==
PROVIDERS: Emergency Provider Registered Nurse Emergency; PCP Nurse Practitioner Family
DX: M54.50 Low back pain, unspecified (principal); W00.9XXA Unspecified fall due to ice and snow, initial encounter
CPT/HCPCS: 99283

== ENCOUNTER → 2024-01-23 03:10 | Outpatient (CLI) | payer OTHER, MEDICAID, SELFPAY ==
--- NOTE | 2024-01-23 | DI.MAMMO_ITS ---
Exam(s) MAMMO SCREENING EXAM: MAMMO SCREENING CLINICAL HISTORY: SCREENING, Z80.3,FAMILY H/O BREAST CA,Z12.31. TECHNIQUE: Bilateral full field digital CC and MLO mammographic images were obtained with 3D tomosyn thesis and utilizing computer aided detection (CAD). COMPARISON: Prior mammograms were reviewed. FINDINGS: There has been no significant change in the appearance and distribution of the fibroglandular tissue. There are no new spiculated masses nor malignant appearing microcalcification groups. There is no significant architectural distortion nor skin thickening-retraction. IMPRESSION: No radiographic evidence of malignancy. BI-RADS Category 1 - Negative Breast Density - Category B - Scattered areas of fibroglandular density Breast density Category C or D implies that the patient has dense breast tissue. Dense breast tissue can make it harder to find cancer on a mammogram. Dense breast tissue is also associated with an incr eased risk of breast cancer. This information about the result of the mammogram report was provided to the patient to raise their awareness. Use this report when you speak with the patient about their risks for breast cancer, which includes their family history. At that time, you may recommend additional screening tests (Ultrasoun d or MRI) as these tests may add significant information. A negative radiographic report should not delay biopsy if a dominant or clinically suspicious mass is present. Up to ten percent of cancers are not identified on mammography. A negative report may reinforce clinical impression. Adenosis and dense breasts may obscure an underlying neoplasm. False positive reports average 6 to 10%. Patient will receive a letter notifying them of these results.
== END ==
PROVIDERS: PCP Nurse Practitioner Family; Visit Provider Nurse Practitioner Family
DX: Z80.3 Family history of malignant neoplasm of breast (principal); Z12.31 Encounter for screening mammogram for malignant neoplasm of breast
CPT/HCPCS: 77063; 77067

== ENCOUNTER → 2024-02-27 03:29 | Outpatient (CLI) | payer OTHER, MEDICAID, SELFPAY ==
--- NOTE | 2024-02-27 | DI.US_ITS ---
Exam(s) US ABDOMEN LIMITED EXAM: US ABDOMEN LIMITED CLINICAL HISTORY: FATTY LIVER K76.0 TECHNIQUE: Ultrasound abdomen performed using standard protocol. COMPARISON: US US ABDOMEN LIMITED from 01/21/2023 FINDINGS: PANCREAS: Normal where visualized. LIVER: Normal echogenicity. The liver is isoechoic to the kidney. Hepatopetal flow in the Portal Ve in. The liver measures in 18.3 cm length. No evidence of a hepatic mass. GALLBLADDER: No evidence of cholelithiasis. No evidence of wall thickening. No pericholecystic fluid identified. BILIARY SYSTEM: Common bile duct measures < 7 mm. No intrahepatic biliary ductal dilation. GOODMAN'S SIGN: Negative. RIGHT KIDNEY: Kidney is normal in size. No evidence of renal calculi. No evidence of hydronephrosis. There is again seen a right parapelvic cyst. No follow-up is recommended. ASCITES: None seen. IMPRESSION: 1. Mild hepatomegaly. 2. No evidence of cholelithiasis or biliary ductal dilatation. DATA REPOSITORY:
--- NOTE | 2024-02-27 | DI.CTLCSR_ITS ---
Exam(s) CT CHEST LUNG CANCER SCREEN EXAM: CT CHEST LUNG CANCER SCREEN CLINICAL HISTORY: TOBACCO DEPENDENCE F17.210 SCREENING FOR LUNG CANCER TECHNIQUE: Imaging Protocol: Axial computed tomography images with coronal and sagittal reformatted images were created and reviewed COMPARISON: CT CT CHEST WO from 02/15/[address] CHEST LUNG CANCER SCREEN from 01/21/2023 FINDINGS: Tracheobronchial tree: Patent where visualized. Pulmonary parenchyma: No consolidation or dominant measurable mass. No architectural distortion. Lung Nodules: None. Mediastinum and Margareth: No dominant adenopathy or fluid collection. The esophagus is unremarkable. Thyroid gland: There is stable thyroid nodules. Lymph nodes: Unremarkable. Pleura: No effusion or pneumothorax. Heart: The heart is not dilated. Coronary artery calcifications are present. No pericardial effusion . Aorta: Thoracic aorta non-dilated.Atherosclerotic calcification of the thoracic aorta is noted. Upper abdomen: Unremarkable. Soft Tissues: Unremarkable. Bones: Within normal limits. IMPRESSION: No pulmonary nodules. Lung RADS Cat 1 - Negative: No nodules and definitely benign nodules Lung-RADS 1.0 CATEGORIES: Category 0 - Prior chest CT exam(s) being located for comparison. Category 1 - Annual screening in 12 months. No nodules or definitely benign nodules. Category 2 - Annual screening in 12 months. Benign appearance. Nodules with low likelihood of becomin g active cancer. Category 3 - 6-month follow-up. Probably benign. Short-term follow-up suggested. Nodules with low lik elihood of becoming active cancer. Category 4A - 3-month follow-up and CT/PET if >8 mm in size. Suspicious finding. Findings which requi re additional testing. Category 4B - Findings which require additional testing and tissue sampling. Suspicious finding. Category 4X - Category 3 or 4 nodules with additional features or imaging findings that increases the suspicion of malignancy. Modifier S- Potentially clinically significant finding. (Non lung cancer) RADIATION DOSE DELIVERED: Total DLP Total DLP DATA REPOSITORY: All CT scans at this facility are submitted to the National Radiology Data Registry (NRDR) Dose Index Registry (DIR) with the [employer] (A[employer]). RADIATION OPTIMIZATION: All CT scans at this facility use at least one of these dose optimization te chniques: automated exposure control; mA and/or kV adjustment per patient size (includes targeted exa ms where dose is matched to clinical indication); or iterative reconstruction.
== END ==
PROVIDERS: PCP Nurse Practitioner Family; Visit Provider Nurse Practitioner Family
DX: Z12.2 Encounter for screening for malignant neoplasm of respiratory organs (principal); F17.210 Nicotine dependence, cigarettes, uncomplicated; K76.0 Fatty (change of) liver, not elsewhere classified; R16.0 Hepatomegaly, not elsewhere classified
CPT/HCPCS: 71271; 76705

== ENCOUNTER 2024-03-15 04:59 | Outpatient (CLI) | payer OTHER, MEDICAID, SELFPAY ==
[2024-03-15 12:29] LABS: Abs Immature Grans 0.01 10^3/uL (0.0-0.06); Absolute Basophil Count 0.05 10^3/uL (0.0-0.2); Absolute Eosinophil Count 0.23 10^3/uL (0.0-0.7); Absolute Lymphocyte Count 2.53 10^3/uL (1.2-3.4); Absolute Monocyte Count 0.77 10^3/uL (0.1-0.8); Absolute Neutrophil Count 4.08 10^3/uL (1.2-6.7); Basophils % 0.7; HCT 46.8 % (36.0-46.0); HGB 14.7 g/dL (11.2-15.7); Immature Grans % 0.1; MCH 29.2 pg (27.0-33.0); MCHC 31.4 % (32.0-36.0); MCV 93 fL (80-95); MPV 9.6 fL (8.0-11.0); Neutrophils % 53.2; Platelet Count 285 10^3/uL (130-400); RBC 5.04 10^6/uL (3.93-5.22); RDW 14.3 % (11.7-14.6); WBC 7.67 10^3/uL (4.4-10.8)
[2024-03-15 13:02] LABS: ALT 24 U/L (14-59); AST 20 U/L (15-37); Albumin 3.5 g/dL (3.4-5.0); Alkaline Phosphatase 82 U/L (46-116); Anion Gap 10.4 mmol/L (3-11); BUN 14 mg/dL (7-18); Bilirubin, Total 0.5 mg/dL (0.2-1.0); CO2 24.6 mmol/L (21.0-32.0); Calcium 9.2 mg/dL (8.5-10.1); Calculated LDL 143 mg/dL (<100); Chloride 107 mmol/L (98-107); Cholesterol 226 mg/dL (<200); Estimated GFR 67.36 (mL/min/1.73m2); Glucose 101 mg/dL (74-106); HDL Cholesterol 52 mg/dL (40-60); Magnesium 2.1 mg/dL (1.8-2.4); Sodium 142 mmol/L (136-145); TSH (W/Ref FT4) 1.17 uIU/mL (0.36-3.74); Total Protein 7.3 g/dL (6.4-8.2); Triglyceride 155 mg/dL (<150); Vitamin B12 461 pg/mL (193-986)
[2024-03-15 19:12] LABS: Thyroglobulin Antibody <15 U/mL (<=60); Thyroperoxidase Antibody 32 U/mL (<=60)
== END 2024-03-15 05:00 | disposition home or self-care (01) ==
LOC: LOS 04:59
PROVIDERS: PCP Nurse Practitioner Family; Visit Provider Nurse Practitioner Family
DX: K76.0 Fatty (change of) liver, not elsewhere classified (principal); E04.1 Nontoxic single thyroid nodule
CPT/HCPCS: 36415; 80053; 80061; 86376; 82607; 83735; 84443; 85025

== ENCOUNTER 2024-04-19 12:27 | Emergency (ER) | payer OTHER, MEDICAID, SELFPAY ==
[2024-04-19 12:30] VITALS: BP 142/92; PULSE 80; RESP 18; TEMP 36.7; O2SAT 99
[2024-04-19] MEDS: Ketorolac 15 MG/ML VIAL IM (14:16)
[2024-04-19] MEDS: Prochlorperazine 10 MG/2 ML VIAL IM (14:16)
--- NOTE | 2024-04-19 14:38 | W.ED.GENAD ---
Discharge Plan Disposition Patient Disposition: Home Condition: Stable Discharge Details Clinical Impression: Headache Primary Care Provider: Lucy Courtney ED Provider: Jojo Joyner Home Meds and New Rx's Prescriptions: New prochlorperazine maleate [Compazine] 10 mg tablet 10 mg PO Q6H PRNQty: 15 0RF Continued topiramate [Topamax] 100 mg tablet 100 mg PO BID sucralfate [Carafate] 1 gram tablet 1 g PO QACHS Qty: 120 12RF dexlansoprazole [Dexilant] 30 mg capsule,biphase delayed releas 30 mg PO DAILY Qty: 30 12RF fluticasone propionate 50 mcg/actuation spray,suspension 2 spray intranasal DAILY Rx Instructions: administer into each nostril acetaminophen 500 mg tablet 1,000 mg PO Q8H PRN (Reason: pain) Qty: 90 3RF Incruse Ellipta 62.5 mcg/actuation blister with device 1 inh INHALATION DAILY Patient Comments: INHALE ONE PUFF BY MOUTH EVERY DAY montelukast 10 mg tablet 10 mg PO DAILY Patient Comments: TAKE ONE TABLET BY MOUTH EVERY DAY diazepam [Valium] 2 mg tablet 2 mg PO BID PRN (Reason: muscle spasm) Qty: 3 0RF Rx Instructions: Take 1 tablet twice a day as needed for severe muscle spasm, do not drive while taking medication or drink alcohol. albuterol sulfate [Proventil HFA] 200 PUFF HFA aerosol inhaler 2 puff Inhalation PRN PRN promethazine 25 mg/mL Syringe 25 mg IM PRN PRN Discharge Instructions Instructions: General Headache (ED) Additional Instructions: Take Compazine as needed for nausea, vomiting, headache Keep yourself hydrated, at least eight 8 ounce glasses of water daily Take ibuprofen and Tylenol as needed for pain and return earlier should you have new or worsening complaints Referrals: Lucy Courtney [Primary Care Provider] - Discharge Data Discharge Date/Time-TO BE ENTERED AT DEPARTURE: 04/19/24 15:03 HPI General Date/Time Provider Initiated Documentation: 04/19/24 12:28. HPI Narrative: This 53-year-old female with history of migraine headaches presents with a headache that is similar to prior. Describes it as a tension-like headache that started 2 days ago. States she has taken her medications as prescribed. Denies any fever or stiff neck. Denies any vision change or strength or sensation change. Denies any speech change. Denies any rashes or lesions. Denies any tick bites. Related Data Home Medications Medication Instructions Recorded Confirmed albuterol sulfate 90 mcg/actuation 2 puff inhalation PRN PRN 02/15/17 01/04/24 aerosol inhaler (Proventil HFA) acetaminophen 500 mg tablet 1,000 mg (2 x 500 mg) PO Q8H PRN 11/15/19 01/04/24 pain #90 tabs topiramate 100 mg tablet (Topamax) 100 mg PO BID 12/26/20 01/04/24 montelukast 10 mg tablet 10 mg PO DAILY 05/18/21 01/04/24 umeclidinium 62.5 mcg/actuation 1 inh inhalation DAILY 05/18/21 01/04/24 blister powder for inhalation (Incruse Ellipta) fluticasone propionate 50 2 spray intranasal DAILY 11/02/22 01/04/24 mcg/actuation nasal spray,suspension sucralfate 1 gram tablet (Carafate) 1 g PO QACHS #120 tabs 01/21/23 01/04/24 dexlansoprazole 30 mg 30 mg PO DAILY #30 caps 03/14/23 01/04/24 capsule,biphase delayed release (Dexilant) promethazine 25 mg/mL injection 25 mg IM PRN PRN 05/28/23 01/04/24 syringe diazepam 2 mg tablet (Valium) 2 mg PO BID PRN muscle spasm #3 01/04/24 tabs prochlorperazine maleate 10 mg 10 mg PO Q6H PRN #15 tabs 04/19/24 tablet (Compazine) Previous Rx's Medication Instructions Recorded acetaminophen 500 mg tablet 1,000 mg (2 x 500 mg) PO Q8H PRN 11/15/19 pain #90 tabs sucralfate 1 gram tablet (Carafate) 1 g PO QACHS #120 tabs 01/21/23 dexlansoprazole 30 mg 30 mg PO DAILY #30 caps 03/14/23 capsule,biphase delayed release (Dexilant) diazepam 2 mg tablet (Valium) 2 mg PO BID PRN muscle spasm #3 01/04/24 tabs prochlorperazine maleate 10 mg 10 mg PO Q6H PRN #15 tabs 04/19/24 tablet (Compazine) Allergies Allergy/AdvReac Type Severity Reaction Status Date / Time adhesive Allergy Intermediate gets red Verified 04/19/24 12:32 and welts up codeine Allergy Intermediate Itching Unverified 04/19/24 12:32 oxycodone HCl [From Percocet] Allergy Intermediate Anaphylaxsi Unverified 04/19/24 12:32 s morphine Allergy Itching Verified 04/19/24 12:32 cyclobenzaprine AdvReac Headache Unverified 04/19/24 12:32 [From Flexeril] General Stated Complaint: Headache CRISTI: 3 Exam Narrative Exam Narrative: 43-year-old female, no visible signs of trauma, pupils equal round reactive to light and accommodation, no meningismus, cardiac rate regular, no respiratory distress, no rashes or lesions, alert and oriented x 4, strength and sensation intact distally, cranial nerves II through XII intact, ambulatory with steady gait Course Vital Signs Vital signs: Vital Signs Temperature 36.7 C 04/19/24 12:30 Pulse 80 04/19/24 12:30 Respiratory Rate 18 04/19/24 12:30 Blood Pressure 142/92 H 04/19/24 12:30 Pulse Oximetry 99 04/19/24 12:30 Temperature 36.7 C 04/19/24 12:30 Temperature Source Skin 04/19/24 12:30 Pulse 80 04/19/24 12:30 Respiratory Rate 18 04/19/24 12:30 Respiratory Effort Normal 04/19/24 12:31 Blood Pressure 142/92 H 04/19/24 12:30 Blood Pressure Position Sitting 04/19/24 12:30 Pulse Oximetry 99 04/19/24 12:30 Oxygen Delivery Method Room Air 04/19/24 12:30 Oxygen Flow Rate 0 04/19/24 12:30 Medical Decision Making This 53-year-old female presents with acute exacerbation of chronic migraine history. Patient is in no acute distress but does appear uncomfortable. Will give Compazine and Toradol IM. Patient reassessed 45 minutes after administration of medication and feeling symptomatically improved, requesting discharge home. I see no indication for imaging at this time as patient symptoms improved and she has a baseline history of migraine headaches with a similar headache today. She is neurologically intact at time of my assessment. She is encouraged to continue on her Topamax and to return earlier should she have new or worsening complaints. I have also given patient several tablets of Compazine for home should she need it Quality:SDOH Health Related Social Needs: No Data to Display PFSH All Active Problems (Updated 04/19/24 @ 14:49 by ANTONINO Srivastava) Headache (Acute) Erosive esophagitis (Acute) Vertigo (Chronic) Diplopia (Acute) Thyroid nodule (Acute) Tobacco abuse (Acute) Atypical migraine (Acute) Migraine headache with aura (Acute) Migraine headache without aura (Acute) Chronic headache (Acute) Lumbar degenerative disc disease (Acute) Chronic low back pain (Acute) Effusion, left knee (Acute) History of total left knee replacement (TKR) (Acute 11/14/19) Dr. 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 no residual deficiets and has not beenrequired to f/u with neuro Tear of medial meniscus of left knee Aspiration: 04/09/2019; 02/05/19 Depo-Medrol injection: 04/09/2019; 02/05/19 Left lateral epicondylitis s/p debridement 11/30/18 Tendinitis of both rotator cuffs (06/30/18) Asthma Obese Cigarette smoker Intertrigo Syncope Hyperthyroidism Migraine Depression Chronic pain Postmenopausal bleeding resolved Thyroid nodule Family history of colon cancer PTSD (post-traumatic stress disorder) Obstructive sleep apnea No CPAP at this time Surgical History History of esophagogastroduodenoscopy (EGD) (~02/09/21) History of back surgery lower back, 07/2020 S/P left knee arthroscopy partial medial menisectomy and trochlear chondroplasty DOS: 05/17/19 Aspiration/Injection: 06/15/19 Status post left rotator cuff repair DOS: 11/30/2018 Dr. Brunson corticosteroid injection: 02/21/19 Replacement of total knee joint R Rotator Cuff Repair 2x on R, 1 x on L, pt report 2 on the left side EGD - [facility] (02/14/18) Colonoscopy - [facility] (02/14/18) Family History Father Rheumatoid arthritis Brother Rheumatoid arthritis Social History Smoking/Tobacco Use Status: Current-Occasional Tobacco Type: cigarettes Tobacco: How many years used: 25 Smoking risk assessment performed?: Yes Alcohol Intake: current Alcohol Intake frequency: holidays/special occasions only Drug use: Occasionally Substance use type: marijuana Details: 02/23/23: last smoked marijuana 02/22/23 02/23/23: Pt reports she was in ER a few weeks ago with chest pains. Housing: house Current gender identity: female Do you feel safe at home: Yes (lives with mom) Do you feel safe in your relationship?: Yes
== END 2024-04-19 15:03 | disposition home or self-care (01) ==
PROVIDERS: Emergency Provider Physician Assistant; PCP Nurse Practitioner Family
DX: R51.9 Headache, unspecified (principal); R11.2 Nausea with vomiting, unspecified; Z86.69 Personal history of other diseases of the nervous system and sense organs
CPT/HCPCS: 96374; 96375; 99284; 99283; J0780; J1885

== ENCOUNTER 2024-04-30 15:37 | Outpatient (CLI) | payer OTHER, MEDICAID, SELFPAY ==
--- NOTE | 2024-04-30 16:11 | DI.RAD_ITS ---
Exam(s) XR KNEE RT 3V AP,LAT,CYNDI EXAM: XR KNEE RT 3V AP,LAT,CYNDI CLINICAL HISTORY: painful right TKA. TECHNIQUE: 2D digital imaging was performed. COMPARISON: CR XR KNEE LT 3V AP,LAT,CYNDI from 04/30/2024 FINDINGS: Four views. Satisfactory position alignment of the components of the right knee prosthesis. No fracture or loose dominic evident. IMPRESSION: Stable satisfactory appearance. DATA REPOSITORY: RADIATION DOSE DELIVERED:
--- NOTE | 2024-04-30 16:11 | DI.RAD_ITS ---
Exam(s) XR KNEE LT 3V AP,LAT,CYNDI EXAM: XR KNEE LT 3V AP,LAT,CYNDI CLINICAL HISTORY: painful left TKA. TECHNIQUE: 2D digital imaging was performed. COMPARISON: Prior x-rays 12/09/2022 FINDINGS: 3 views Stable position alignment of the components of the prosthesis. No fracture or loosening evident. IMPRESSION: Stable satisfactory appearance DATA REPOSITORY: RADIATION DOSE DELIVERED:
== END 2024-04-30 15:38 | disposition home or self-care (01) ==
LOC: DIORS 15:37
PROVIDERS: PCP Nurse Practitioner Family; Referring Provider Nurse Practitioner Family
DX: Z96.652 Presence of left artificial knee joint (principal); Z96.651 Presence of right artificial knee joint; M25.861 Other specified joint disorders, right knee; M25.862 Other specified joint disorders, left knee
CPT/HCPCS: 73562; 99213

== ENCOUNTER 2024-06-13 09:40 | Day surgery (SDC) | payer OTHER, MEDICAID, SELFPAY ==
[2024-06-13] VITALS (26 sets, daily range): BP systolic 112–144; BP diastolic 69–90; PULSE 69–86; RESP 8–24; TEMP 36.1–36.7; O2SAT 92–97; BMI 39.8
--- NOTE | 2024-06-13 09:54 | W.PM.DSUDISC ---
Date of service: 06/13/24 Time of Service: 09:54 Discharge Plan Disposition Patient Disposition: Home Condition: Good Discharge Details Reason For Visit: B/L Knee Arthroscopy Attending Provider: Junior Brunson Primary Care Provider: Lucy Courtney Home Meds and New Rx's Prescriptions: New acetaminophen 500 mg tablet 1,000 mg PO TID Qty: 90 0RF hydromorphone 2 mg tablet 2 mg PO Q4H PRN (Reason: pain) Qty: 20 0RF ibuprofen 600 mg tablet 600 mg PO TID PRN (Reason: pain) Qty: 90 0RF Continued topiramate [Topamax] 100 mg tablet 100 mg PO BID sucralfate [Carafate] 1 gram tablet 1 g PO QACHS Qty: 120 12RF dexlansoprazole [Dexilant] 30 mg capsule,biphase delayed releas 30 mg PO DAILY Qty: 30 12RF Incruse Ellipta 62.5 mcg/actuation blister with device 1 inh INHALATION DAILY Patient Comments: INHALE ONE PUFF BY MOUTH EVERY DAY montelukast 10 mg tablet 10 mg PO DAILY Patient Comments: TAKE ONE TABLET BY MOUTH EVERY DAY promethazine 25 mg/mL Syringe 25 mg IM PRN PRN Discontinued acetaminophen 500 mg tablet 1,000 mg PO Q8H PRN (Reason: pain) Qty: 90 3RF Discharge Instructions Stand Alone Forms: Anesthesia Discharge Inst., Crutch Training Instructions, [place] Knee Arthroscopy, Taiwo Hussein ([facility]) Referrals: Junior Brunson MD [ [facility] STAFF PHYSICIAN] - 06/25/24 1:45 pm Equipment/Supplies: Partial Weight Bearing Crutches Activity:: Activity as Tolerated Remove Dressings/Wound Care:: 72 hours Shower/Bathe:: 72 hours Diet:: As Tolerated DS: Diagnosis Discharge Diagnosis (1) 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
[2024-06-13] MEDS: Lactated Ringers 1,000 ML 80 ML IV (10:05)
[2024-06-13] MEDS: Acetaminophen 500 MG TAB 1000 MG PO (10:27)
[2024-06-13] MEDS: Celecoxib 200 MG CAP 400 MG PO (10:27)
[2024-06-13] MEDS: Gabapentin 300 MG CAP PO (10:28)
--- NOTE | 2024-06-13 10:37 | ANES.PREOP_ITS ---
General Info Date of Service Date Performed: 06/13/24 Height: 5 ft 8 in Weight: 118.8 kg Body Mass Index (BMI): 39.8 Surgical Procedure: Operation Date: 06/13/24 12:25 Proposed Procedure Side Surgeon p Knee Arthroscopy Synovectomy Bilateral Junior Brunson MD Meds Allergies and Home Medications Allergies Allergy/AdvReac Type Severity Reaction Status Date / Time adhesive Allergy Intermediate gets red Verified 06/13/24 10:21 and welts up codeine Allergy Intermediate Itching Verified 06/13/24 10:21 oxycodone HCl (From Percocet) Allergy Intermediate Anaphylaxsi Verified 06/13/24 10:21 s morphine Allergy Itching Verified 06/13/24 10:21 cyclobenzaprine (From AdvReac Headache Verified 06/13/24 10:21 Flexeril) Home Medication ?Medication ?Instructions ?Recorded topiramate 100 mg tablet (Topamax) 100 mg PO BID 12/26/20 montelukast 10 mg tablet 10 mg PO DAILY 05/18/21 umeclidinium 62.5 mcg/actuation 1 inh inhalation DAILY 05/18/21 blister powder for inhalation (Incruse Ellipta) sucralfate 1 gram tablet (Carafate) 1 g PO QACHS #120 tabs 01/21/23 dexlansoprazole 30 mg 30 mg PO DAILY #30 caps 03/14/23 capsule,biphase delayed release (Dexilant) promethazine 25 mg/mL injection 25 mg IM PRN PRN 05/28/23 syringe acetaminophen 500 mg tablet 1,000 mg (2 x 500 mg) PO TID #90 06/13/24 tabs fluticasone propion-salmeterol inhalation 06/13/24 hydromorphone 2 mg tablet 2 mg PO Q4H PRN pain #20 tabs 06/13/24 ibuprofen 600 mg tablet 600 mg PO TID PRN pain #90 tabs 06/13/24 Current Visit Medications: Current Medications Generic Name Dose Route Start Last Admin Trade Name Freq PRN Reason Stop Dose Admin Acetaminophen 1,000 mg 06/13/24 06:00 06/13/24 10:27 Acetaminophen 500 Mg Tab PO 06/13/24 16:00 1,000 mg PREOP TALI Administration Celecoxib 400 mg 06/13/24 06:00 06/13/24 10:27 Celecoxib 200 Mg Cap PO 06/13/24 16:00 400 mg PREOP TALI Administration Gabapentin 300 mg 06/13/24 06:00 06/13/24 10:28 Gabapentin 300 Mg Cap PO 06/13/24 16:00 300 mg PREOP TALI Administration Hydromorphone HCl 2 mg 06/13/24 09:42 Hydromorphone 2 Mg/Ml Syr IM 07/13/24 09:41 Q4H PRN PRN Ringer's Solution 1,000 mls @ 80 mls/hr 06/13/24 06:00 06/13/24 10:05 IV 07/12/24 23:59 80 mls/hr INFUSION TALI Administration Cefazolin Sodium 3,000 mg/ 100 mls @ 200 mls/hr 06/13/24 06:00 Sodium Chloride IVPB 06/13/24 16:00 PREOP TALI Tranexamic Acid/Sodium Chloride 1,000 mg in 100 mls @ 600 mls/hr 06/13/24 06:00 IVPB 06/13/24 16:00 PREOP TALI IV Miscellaneous Supplies 1 each 06/13/24 06:00 Iv Access IV 07/12/24 23:59 DIRECTED TALI Sodium Chloride 0 ml 06/13/24 06:00 Normal Saline Flush 10 Ml Syr IV 07/12/24 23:59 PRN PRN Sodium Chloride 0 ml 06/13/24 06:00 Normal Saline 10 Ml Vial IJ 07/12/24 23:59 DIRECTED PRN Sterile Water 0 ml 06/13/24 06:00 Water,Injection,Sterile 10 Ml Vial IJ 07/12/24 23:59 DIRECTED PRN PFSH Active Problems Active Problems: Problem Status Onset Code Erosive esophagitis Acute K22.10 Family history of gallbladder disease in sister Acute Z83.79 Postprandial RUQ pain Acute R10.11 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 Acute M25.869, Z96.659 COPD (chronic obstructive pulmonary disease) with acute bronchitis Acute J44.0, J20.9 Headache Acute R51.9 Contact dermatitis Acute L25.9 Migraine Chronic G43.909 GERD with esophagitis Acute K21.00 Duodenitis Acute K29.80 Chronic erosive gastritis Acute K29.40 Esophagitis, [place] grade A Acute K20.80 Gross hematuria Acute R31.0 Renal cyst Acute N28.1 Papanicolaou smear for cervical cancer screening Acute Z12.4 Abdominal pain Acute R10.9 Left sciatic notch pain Acute M54.32 Left buttock pain Acute M79.18 Osteoarthritis of left hip joint due to dysplasia Acute M16.32 Atypical chest pain Acute R07.89 Pain in knee region after total knee replacement Acute T84.84XA, Z96.659 Effusion, left knee Acute M25.462 Chronic low back pain Acute M54.5, G89.29 Lumbar degenerative disc disease Acute M51.36 Chronic headache Acute R51 Migraine headache without aura Acute G43.009 Migraine headache with aura Acute G43.109 Atypical migraine Acute G43.009 Tobacco abuse Acute Z72.0 Thyroid nodule Acute E04.1 Diplopia Acute H53.2 Vertigo Chronic R42 Medical History Medical History Family history of breast cancer Hidradenitis suppurativa Dyspepsia Arthralgia Malaise and fatigue Prediabetes Tobacco use TIA (transient ischemic attack) 06/15-per pt. no residual deficits and has not been required to f/u with neuro Tear of medial meniscus of left knee Aspiration: 04/09/2019; 02/05/19 Depo-Medrol injection: 04/09/2019; 02/05/19 Left lateral epicondylitis s/p debridement 11/30/18 Tendinitis of both rotator cuffs (06/30/18) Asthma Obese Cigarette smoker Intertrigo Syncope Hyperthyroidism Migraine Depression Chronic pain Postmenopausal bleeding resolved Thyroid nodule Family history of colon cancer PTSD (post-traumatic stress disorder) Obstructive sleep apnea No CPAP at this time Surgical History Surgical History History of total left knee replacement (TKR) (11/14/19) Dr. Brunson History of total right knee replacement (TKR) 2013 [facility] History of esophagogastroduodenoscopy (EGD) (~02/09/21) History of back surgery lower back, 07/2020 S/P left knee arthroscopy partial medial menisectomy and trochlear chondroplasty DOS: 05/17/19 Aspiration/Injection: 07/19/19 Status post left rotator cuff repair DOS: 11/30/2018 Dr. Brunson corticosteroid injection: 02/21/19 Replacement of total knee joint R Rotator Cuff Repair 2x on R, 1 x on L, pt report 2 on the left side EGD - MAC (02/14/18) Colonoscopy - MAC (02/14/18) Tobacco Smoking/Tobacco Use Status: Current-Occasional Tobacco Type: cigarettes Smoking cigarettes per day: 3 Alcohol Alcohol Intake: current Alcohol intake frequency: holidays/special occasions only Substance Use Substance use: Occasionally Substance use type: marijuana Vital Signs and Lab Results Vital Signs Most Recent Vital Signs in EMR: Most Recent Vital Signs Temp Pulse Resp BP Pulse Ox 36.5 C 86 16 131/90 96 06/13/24 10:11 06/13/24 10:11 06/13/24 10:11 06/13/24 10:11 06/13/24 10:11 Lab Results Blood Type / Crossmatch: No Data to Display Complete Blood Count: No Data to Display Complete Metabolic Panel: No Data to Display Liver Function Panel: No Data to Display Coagulation Panel: No Data to Display Cardiac Panel: No Data to Display Arterial Blood Gas: No Data to Display Venous Blood Gas: No Data to Display Pancreas Panel: No Data to Display Thyroid Panel: No Data to Display Infectious Disease: No Data to Display Blood Cultures: No Data to Display Toxicology Panel: No Data to Display Panel: No Data to Display Imaging and Studies Imaging and Studies Study information below may be from another EMR and interpreted by another provider. Please see original notes in EMR for more complete details. EKG Summary: Conclusion Sinus rhythm...normal P axis, V-rate 60- [address] interval...CT >210, V-rate 50- 90 Low voltage, precordial leads...precordial leads <1.0mV. Sinus. Normal axis. No STEMI. I have reviewed and interpreted ECG and agree with software generated interpretation Stress Test Summary: Myocardial perfusion imaging: No myocardial perfusion defects noted. 2. The calculated left ventricular ejection fraction after stress: 55%. No left ventricular regional motion abnormality. History: Patient's presenting symptoms: asymptomatic. REASON FOR VISIT: PATIENT HAS BEEN EXPERIENCING 9/10 CHEST PAIN/PRESSURE DESCRIBED HEAVY FOR THE PAST 6 MONTHS. THE CHEST PRESSURE OCCURS WITH BOTH REST AND EXERTION, AND RESOLVES WITHIN MINUTES WHILE AT REST. CHEST PRESSURE IS ASSOCIATED WITH A STABBING PAIN DOWN BILATERAL ARMS AND LEGS, DIAPHORESIS, AND OCCASIONAL NAUSEA FOLLOWING CHEST PRESSURE. PATIENT REPORTS SHE LAST EXPERIENCED THIS CHEST PRESSURE 3 WEEKS AGO. MEDICAL HISTORY: ASTHMA, PTSD, MIGRAINES. NEGATIVE REGULAR STRESS TEST IN 2012. Echocardiogram Summary: Summary: 1. Left ventricle: The cavity size was normal. Systolic function was normal. The estimated ejection fraction was 55-60%. Diastolic parameters were normal. There was no evidence of elevated ventricular filling pressure by Doppler parameters. 2. Aortic valve: There was trivial regurgitation. 3. Mitral valve: There was mild regurgitation. 4. Right ventricle: The cavity size was normal. Wall thickness was normal. Systolic function was normal. 5. Atrial septum: No defect or patent foramen ovale was identified. 6. Pulmonary arteries: Pulmonary systolic pressure was in the range of 15mm Hg to 25mm Hg. 7. Inferior vena cava: The vessel was patent and normal in size. The respirophasic diameter changes were in the normal range (greater than or equal to 50%), consistent with normal central venous pressure. Carotid Artery Summary:: IMPRESSION: Normal CTA of the neck. Stable nodule lower pole left lobe of the thyroid. 01/13/23 Pulmonary Function Summary: Pulmonary Function Test Result Interpretation Spirometry: No evidence of obstructive airways disease, no bronchodilator response Lung Volumes: No evidence of restriction Diffusion Capacity: Mildly reduced, even when corrected to alveolar volume Airway Pressure: Normal Impression Isolated mild diffusion defect Clinical Correlation therefore is recommended. 11/24/20 Anesthesia Assessment and Plan Anesthesia History Personal History: No History of Anesthesia Complications Family History: No Family History of Anesthesia Complications Exercise Tolerance Exercise Tolerance: Metabolic Equivalents>4 Pertinent Negatives Pertinent Negatives: No Major Cardiovascular Symptoms or Complaints and No Major Pulmonary Symptoms or Complaints Cardiac & Pulmonary Exam Cardiac Exam: Normal S1/S2 Heart Sounds Pulmonary Exam: Clear Bilateral Breath Sounds Implantable Cardiac Device Does patient have a Pacemaker or an ICD?: No Airway Exam Known Difficult Airway: No Mallampati Class: 2 Mouth Opening: Normal (> 3cm) Thyromental Distance: Greater than 3 cm Neck Range of Motion: Full ROM Neck Circumference: Normal Teeth Condition: Removable Dentures/Plates Upper and Edentulous ASA Classification ASA Score: ASA 3 Emergency Case?: No NPO Status NPO Status: NPO Clears >2 hours, Solids >8 hours Status Status: Not Relevant due to Medical History Anesthesia Plan Resuscitation Status: Full Code Anesthesia Technique: General Anesthesia Airway Planned: LMA Monitors Used: Standard Monitors
--- NOTE | 2024-06-13 11:57 | HPE_ITS ---
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 Given the stiffness, crepitus, and pain after arthroscopic synovectomy of both knees. I discussed the risk of the procedure to include bleeding, infection, pain, stiffness, continued symptoms. Despite these risk, she elects to proceed. She has had no changes to her health. She will be weightbearing as tolerated with use of crutches. She may turn to work on Tuesday and increase her activities as tolerated. Qualifiers: Encounter type: initial encounter Qualified Code(s): T84.84XA - Pain due to internal orthopedic prosthetic devices, implants and grafts, initial encounter; Z96.659 - Presence of unspecified artificial knee joint History of Present Illness History of Present Illness Chief Complaint: Bilateral Knee Pain and Stiffness and Crepitus Narrative: Dinesh is a 54-year-old female who has had bilateral knee replacements. Unfortunate she continues have some stiffness, pain, crepitus about both knees. Please the previous office note. As an attempt to help her current symptoms of stiffness and pain I offered an arthroscopic synovectomy both knees. I reviewed the risk of the procedure with her once again today. She is in no changes to her symptoms. She had no changes to her history. 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 (Acute) COPD (chronic obstructive pulmonary disease) with acute bronchitis (Acute) Headache (Acute) Contact dermatitis (Acute) Migraine (Chronic) GERD with esophagitis (Acute) Duodenitis (Acute) Chronic erosive gastritis (Acute) Esophagitis, [place] grade A (Acute) Gross hematuria (Acute) Renal cyst (Acute) Papanicolaou smear for cervical cancer screening (Acute) Abdominal pain (Acute) Left sciatic notch pain (Acute) Left buttock pain (Acute) Osteoarthritis of left hip joint due to dysplasia (Acute) Atypical chest pain (Acute) Pain in knee region after total knee replacement (Acute) Effusion, left knee (Acute) Chronic low back pain (Acute) Lumbar degenerative disc disease (Acute) Chronic headache (Acute) Migraine headache without aura (Acute) Migraine headache with aura (Acute) Atypical migraine (Acute) Tobacco abuse (Acute) Thyroid nodule (Acute) Diplopia (Acute) Vertigo (Chronic) Medical History Family history of breast cancer Hidradenitis suppurativa Dyspepsia Arthralgia Malaise and fatigue Prediabetes Tobacco use TIA (transient ischemic attack) 06/15-per pt. no residual deficits and has not been required to f/u with neuro Tear of medial meniscus of left knee Aspiration: 04/09/2019; 02/05/19 Depo-Medrol injection: 04/09/2019; 02/05/19 Left lateral epicondylitis s/p debridement 11/30/18 Tendinitis of both rotator cuffs (06/30/18) Asthma Obese Cigarette smoker Intertrigo Syncope Hyperthyroidism Migraine Depression Chronic pain Postmenopausal bleeding resolved Thyroid nodule Family history of colon cancer PTSD (post-traumatic stress disorder) Obstructive sleep apnea No CPAP at this time Surgical History History of total left knee replacement (TKR) (11/14/19) Dr. Brunson History of total right knee replacement (TKR) 2013 [facility] History of esophagogastroduodenoscopy (EGD) (~02/09/21) History of back surgery lower back, 07/2020 S/P left knee arthroscopy partial medial menisectomy and trochlear chondroplasty DOS: 05/17/19 Aspiration/Injection: 06/15/19 Status post left rotator cuff repair DOS: 11/30/2018 Dr. Brunson corticosteroid injection: 02/21/19 Replacement of total knee joint R Rotator Cuff Repair 2x on R, 1 x on L, pt report 2 on the left side EGD - MAC (02/14/18) Colonoscopy - MAC (02/14/18) Family History Father Rheumatoid arthritis Brother Rheumatoid arthritis Social History Smoking/Tobacco Use Status: Current-Occasional Tobacco Type: cigarettes Tobacco: How many years used: 25 Smoking risk assessment performed?: Yes Alcohol Intake: current Alcohol Intake frequency: holidays/special occasions only Drug use: Occasionally Substance use type: marijuana Housing: house Current gender identity: female Do you feel safe at home: Yes Do you feel safe in your relationship?: Yes Meds Allergies and Home Medications Allergies Allergy/AdvReac Type Severity Reaction Status Date / Time adhesive Allergy Intermediate gets red Verified 06/13/24 10:21 and welts up codeine Allergy Intermediate Itching Verified 06/13/24 10:21 oxycodone HCl (From Percocet) Allergy Intermediate Anaphylaxsi Verified 06/13/24 10:21 s morphine Allergy Itching Verified 06/13/24 10:21 cyclobenzaprine (From AdvReac Headache Verified 06/13/24 10:21 Flexeril) Home Medications ?Medication ?Instructions ?Recorded ?Confirmed ?Type topiramate 100 mg tablet (Topamax) 100 mg PO BID 12/26/20 06/13/24 History montelukast 10 mg tablet 10 mg PO DAILY 05/18/21 06/13/24 History umeclidinium 62.5 mcg/actuation 1 inh inhalation DAILY 05/18/21 06/13/24 History blister powder for inhalation (Incruse Ellipta) sucralfate 1 gram tablet (Carafate) 1 g PO QACHS #120 tabs 01/21/23 06/13/24 Rx dexlansoprazole 30 mg 30 mg PO DAILY #30 caps 03/14/23 06/13/24 Rx capsule,biphase delayed release (Dexilant) promethazine 25 mg/mL injection 25 mg IM PRN PRN 05/28/23 06/13/24 History syringe acetaminophen 500 mg tablet 1,000 mg (2 x 500 mg) PO TID #90 06/13/24 Rx tabs fluticasone propion-salmeterol inhalation 06/13/24 History hydromorphone 2 mg tablet 2 mg PO Q4H PRN pain #20 tabs 06/13/24 Rx ibuprofen 600 mg tablet 600 mg PO TID PRN pain #90 tabs 06/13/24 Rx Exam Resp Effort & Inspection: normal respiratory effort Auscultation: clear to auscultation bilaterally Cardio Rate: regular rate Rhythm: regular rhythm Results Last Vital Signs Temp 36.5 C 06/13/24 10:11 Pulse 86 06/13/24 10:11 Resp 16 06/13/24 10:11 BP 131/90 06/13/24 10:11 Pulse Ox 96 06/13/24 10:11
[2024-06-13] MEDS: ceFAZolin 3,000 MG in Normal Saline 100 ML 200 MG IVPB (12:04)
[2024-06-13] MEDS: TRANEXAMIC ACID/SOD. CHL. 1,000 MG/100 ML BAG 600 MG IVPB (12:17)
[2024-06-13] MEDS: Bupivacaine 0.5% Pres-Free 30 ML VIAL (12:43)
[2024-06-13] MEDS: EPINEPHrine 10 MG/10 ML ML (12:54)
[2024-06-13] MEDS: fentaNYL 100 MCG/2 ML VIAL IVP ×4 (13:35→14:18)
--- NOTE | 2024-06-13 14:42 | W.PM.OP ---
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 Nonoperative measures were exhausted but disability due to lack of motion persisted. I discussed knee arthroscopy with synovectomy with maniuplation with the patient. I reviewed the risks of the procedure to include, but not limited to, bleeding, infection, pain, continued stiffness, recurrence, blood clot. Despite these risks, the patient elected to proceed. Findings: There were dense adhesions and bands of scar tissue seen throughout the knees. The right side had some increase in the sigmoid to the left side but overall both had notable adhesions and some fibrillation of tissue around the patella. Procedure Description: Dinesh was greeted in the preoperative holding area where the correct side was identified and marked. The consent was reviewed with the patient and signed. The history and physical was updated. All questions were answered. She was taken back to the operating room. The patient was placed into the supine position on the operating room table. All bony prominences were well padded. Prophylactic antibiotics in the form of Cefazolin were administered. Both knees were then prepped with Chloraprep and draped in a standard fashion with stockinette and bilateral extremity drape. A timeout to confirm correct identity, side and site, procedure, allergies, anesthesia, and medical concerns was performed. LEFT KNEE A standard lateral portal was made at the lateral border of the patella tendon in line with the inferior pole of the patella, soft spot. The skin and deep tissue was incised sharply and the blunt trochar was inserted atraumatically. At this point had visualization of the femoral component. A superolateral portal was then established with spinal needle localization just superior and lateral to the patella. A knife was taken down through the skin and soft tissue to enter the knee joint. Starting in the superior compartment above the femoral component and anterior to the femur I released all scarring between the anterior femoral synovium and the overlying extensor mechanism. This was taken through all of any noticeable scar tissue until the superior patellar pouch was fully released and mobile. This resection was carried out mostly with electrocautery as well as shaver. Once this was released fully from lateral to medial superiorly I then continue working down the lateral gutter. All scar tissue in the lateral gutter was released so there is normal space and movement between the capsular tissues and the edge of the femoral component and femur. This was taken down through the lateral gutter such that I was able to identify the polyethylene to its posterior corner. This area had some notable density about it along with some inflamed tissue. Once again, all scar tissue in this area was resected so the polyethylene was easily visible and there is no interposed tissue in the back or the polyethylene was identified. I then continued to work anteriorly. To continue the synovectomy from the lateral compartment to the anterior compartment into the medial compartment, I placed a medial portal under spinal needle localization. Once this was in place it became another working portal and I continued the synovectomy through the anterior compartment to the medial compartment. Once again, I freed up the medial gutter so I was able to visualize the polyethylene from the anterior posterior margins. There is no interposed tissue after full synovectomy was performed. Adhesions between the capsule and the femur were released. This was continued up the medial gutter until it met up with the releases performed previously in the superior compartment. Any remnant scar tissue from around the patella was then removed with a shaver and electrocautery. There was some fraying and fibrillated tissue seen from around the patella which was debrided down. The arthroscope was brought back into the suprapatellar pouch and the leg was in full extension. The knee was thoroughly irrigated with the arthroscopic fluid on high flow and pressure. Inflow was stopped and excess fluid was removed. The wounds were closed with 4-0 Nylon. 0.5% bupivacaine was injected around the portal sites and into the knee. The wounds were dressed with Xeroform, 4x4 gauze, ABD pad, Kerlix and an SERGIO wrap. A cryo-cuff was applied. RIGHT KNEE Attention was then turned to the right knee. A standard lateral portal was made at the lateral border of the patella tendon in line with the inferior pole of the patella, soft spot. The skin and deep tissue was incised sharply and the blunt trochar was inserted atraumatically. At this point had visualization of the femoral component. A superolateral portal was then established with spinal needle localization just superior and lateral to the patella. A knife was taken down through the skin and soft tissue to enter the knee joint. Starting in the superior compartment above the femoral component and anterior to the femur I released all scarring between the anterior femoral synovium and the overlying extensor mechanism. This was taken through all of any noticeable scar tissue until the superior patellar pouch was fully released and mobile. This resection was carried out mostly with electrocautery as well as shaver. Once this was released fully from lateral to medial superiorly I then continue working down the lateral gutter. All scar tissue in the lateral gutter was released so there is normal space and movement between the capsular tissues and the edge of the femoral component and femur. This was taken down through the lateral gutter such that I was able to identify the polyethylene to its posterior corner. Just like on the left knee there was notable adhesions in this area along with some frayed and inflamed synovium. Once again, all scar tissue in this area was resected so the polyethylene was easily visible and there is no interposed tissue in the back or the polyethylene was identified. I then continued to work anteriorly. I then placed a medial portal under spinal needle localization. Once this was in place it became another working portal and I continued the synovectomy through the anterior compartment to the medial compartment. Once again, I freed up the medial gutter so I was able to visualize the polyethylene from the anterior posterior margins. There were some dense adhesions and thickened tissue in this area although nothing interposed between the metal and plastic. Adhesions between the capsule and the femur were released. This was continued up the medial gutter until it met up with the releases performed previously in the superior compartment. Any remnant scar tissue from around the patella was then removed with a shaver and electrocautery. The arthroscope was brought back into the suprapatellar pouch and the leg was in full extension. The knee was thoroughly irrigated with the arthroscopic fluid on high flow and pressure. Inflow was stopped and excess fluid was removed. The wounds were closed with 4-0 Nylon. 0.5% bupivacaine was injected around the portal sites and into the knee. The wounds were dressed with Xeroform, 4x4 gauze, ABD pad, Kerlix and an SERGIO wrap. A cryo-cuff was applied. The patient tolerated the procedure well and was returned to the PACU in a stable condition suffering no known complication..
[2024-06-13] MEDS: HYDROmorphone 2 MG TAB PO (15:22)
[2024-06-13] MEDS: Ondansetron O.D.T. 4 MG TABEF PO (15:22)
--- NOTE | 2024-06-13 15:23 | W.ANESPOSTOP ---
Postoperative Evaluation Date, Time and Location Date Performed: 06/13/24 Time Performed: 15:23 Patient Location: Day Surgery Unit Vital Signs Most Recent Imported Vital Signs: Most Recent Vital Signs Temp Pulse Resp BP Pulse Ox 36.2 C L 74 16 144/87 H 94 06/13/24 15:13 06/13/24 15:13 06/13/24 15:13 06/13/24 15:13 06/13/24 15:13 Pain Score Most Recent Pain Score: Most Recent Pain Score Pain Level 4 06/13/24 15:13 Assessment Mental Status: Awake (Alert & Oriented to Patient Baseline) Airway and Respiratory Function: Patent airway with normal (patient baseline) respiratory exam Cardiovascular Function: Hemodynamically Stable Hydration Status: Adequately Hydrated Nausea & Vomiting: No Nausea or Vomiting Pain: Pain is Moderate or Severe Postoperative Pain Management: Pain being addressed with medication (right knee greater than left. ) Peripheral Nerve Block: Patient did not receive a nerve block
== END 2024-06-13 16:10 | disposition home or self-care (01) ==
PROVIDERS: PCP Nurse Practitioner Family; Visit Provider Student in an Organized Health Care Education/Training Program
PROC: (CPT 29870; principal; 2024-06-13 12:15)
DX: T84.84XA Pain due to internal orthopedic prosthetic devices, implants and grafts, initial encounter (principal); M25.861 Other specified joint disorders, right knee; M25.862 Other specified joint disorders, left knee; Z96.653 Presence of artificial knee joint, bilateral
CPT/HCPCS: 29876; J0665; J0690; J1100; J1805; J1885; J2001; J2405; J2704; J3010

== ENCOUNTER → 2024-06-25 13:45 | Outpatient (BNVA) | payer OTHER, MEDICAID, SELFPAY | PROVIDERS: PCP Nurse Practitioner Family; Referring Provider Nurse Practitioner Family; Visit Provider Student in an Organized Health Care Education/Training Program | DX: Z47.1 Aftercare following joint replacement surgery (principal); T84.84XA Pain due to internal orthopedic prosthetic devices, implants and grafts, initial encounter; Z96.653 Presence of artificial knee joint, bilateral ==

== ENCOUNTER 2024-07-07 19:46 | Emergency (ER) | payer OTHER, MEDICAID, SELFPAY ==
[2024-07-07 19:48] VITALS: BP 106/75; PULSE 101; RESP 20; TEMP 36.3; O2SAT 97
[2024-07-07] MEDS: Lidocaine 1% Multi-Dose 50 ML VIAL (20:07)
--- NOTE | 2024-07-07 20:12 | W.ED.GENAD ---
Discharge Plan Disposition Patient Disposition: Home Condition: Improving Discharge Details Clinical Impression: Finger laceration, Dog bite Primary Care Provider: Lucy Courtney ED Provider: Luan Hill Home Meds and New Rx's Prescriptions: New amoxicillin-pot clavulanate 875-125 mg tablet 1 tab PO BID 7 Days Qty: 14 0RF No Action topiramate [Topamax] 100 mg tablet 100 mg PO BID sucralfate [Carafate] 1 gram tablet 1 g PO QACHS Qty: 120 12RF dexlansoprazole [Dexilant] 30 mg capsule,biphase delayed releas 30 mg PO DAILY Qty: 30 12RF Incruse Ellipta 62.5 mcg/actuation blister with device 1 inh INHALATION DAILY Patient Comments: INHALE ONE PUFF BY MOUTH EVERY DAY montelukast 10 mg tablet 10 mg PO DAILY Patient Comments: TAKE ONE TABLET BY MOUTH EVERY DAY acetaminophen 500 mg tablet 1,000 mg PO TID Qty: 90 0RF hydromorphone 2 mg tablet 2 mg PO Q4H PRN (Reason: pain) Qty: 20 0RF ibuprofen 600 mg tablet 600 mg PO TID PRN (Reason: pain) Qty: 90 0RF fluticasone propion-salmeterol [Advair HFA] 2 puff inhalation DAILY promethazine 25 mg/mL Syringe 25 mg IM PRN PRN Discharge Instructions Instructions: Animal Bites ED Additional Instructions: Please keep wound clean and dry, please return to the emergency department for any worsening symptoms HPI General Date/Time Provider Initiated Documentation: 07/07/24 19:55. HPI Narrative: 54-year-old female bit on her right middle finger by family dog, dog is healthy and vaccinated, laceration over dorsal aspect of finger hemostatic Related Data Home Medications ?Medication ?Instructions ?Recorded ?Confirmed topiramate 100 mg tablet (Topamax) 100 mg PO BID 12/26/20 07/07/24 montelukast 10 mg tablet 10 mg PO DAILY 05/18/21 07/07/24 umeclidinium 62.5 mcg/actuation 1 inh inhalation DAILY 05/18/21 07/07/24 blister powder for inhalation (Incruse Ellipta) sucralfate 1 gram tablet (Carafate) 1 g PO QACHS #120 tabs 01/21/23 07/07/24 dexlansoprazole 30 mg 30 mg PO DAILY #30 caps 03/14/23 07/07/24 capsule,biphase delayed release (Dexilant) promethazine 25 mg/mL injection 25 mg IM PRN PRN 05/28/23 07/07/24 syringe acetaminophen 500 mg tablet 1,000 mg (2 x 500 mg) PO TID #90 06/13/24 07/07/24 tabs fluticasone propion-salmeterol 2 puff inhalation DAILY 06/13/24 07/07/24 hydromorphone 2 mg tablet 2 mg PO Q4H PRN pain #20 tabs 06/13/24 07/07/24 ibuprofen 600 mg tablet 600 mg PO TID PRN pain #90 tabs 06/13/24 07/07/24 amoxicillin 875 mg-potassium 1 tab PO BID 7 days #14 tabs 07/07/24 clavulanate 125 mg tablet Previous Rx's ?Medication ?Instructions ?Recorded sucralfate 1 gram tablet (Carafate) 1 g PO QACHS #120 tabs 01/21/23 dexlansoprazole 30 mg 30 mg PO DAILY #30 caps 03/14/23 capsule,biphase delayed release (Dexilant) acetaminophen 500 mg tablet 1,000 mg (2 x 500 mg) PO TID #90 06/13/24 tabs hydromorphone 2 mg tablet 2 mg PO Q4H PRN pain #20 tabs 06/13/24 ibuprofen 600 mg tablet 600 mg PO TID PRN pain #90 tabs 06/13/24 amoxicillin 875 mg-potassium 1 tab PO BID 7 days #14 tabs 07/07/24 clavulanate 125 mg tablet Allergies Allergy/AdvReac Type Severity Reaction Status Date / Time adhesive Allergy Intermediate gets red Verified 07/07/24 19:50 and welts up codeine Allergy Intermediate Itching Verified 07/07/24 19:50 oxycodone HCl (From Percocet) Allergy Intermediate Anaphylaxsi Verified 07/07/24 19:50 s morphine Allergy Itching Verified 07/07/24 19:50 cyclobenzaprine (From AdvReac Headache Verified 07/07/24 19:50 Flexeril) General Stated Complaint: AnimalBite CRISTI: 3 Exam Narrative Exam Narrative: Flap-like laceration overlying PIP joint of third digit of right hand, full flexion both proximal and distally intact full extension intact, good capillary refill good sensation median radial and ulnar nerve sensory distribution, warm well-perfused no foreign bodies appreciated, hemostatic No other signs of trauma Patient is alert oriented interactive moving all extremities without deficit Course Vital Signs Vital signs: Vital Signs Temperature 36.3 C L 07/07/24 19:48 Pulse 101 H 07/07/24 19:48 Respiratory Rate 20 07/07/24 19:48 Blood Pressure 106/75 07/07/24 19:48 Pulse Oximetry 97 07/07/24 19:48 Temperature 36.3 C L 07/07/24 19:48 Temperature Source Tympanic 07/07/24 19:48 Pulse 101 H 07/07/24 19:48 Respiratory Rate 20 07/07/24 19:48 Blood Pressure 106/75 07/07/24 19:48 Blood Pressure Position Sitting 07/07/24 19:48 Pulse Oximetry 97 07/07/24 19:48 Oxygen Delivery Method Room Air 07/07/24 19:48 Oxygen Flow Rate 0 07/07/24 19:48 Medical Decision Making 54-year-old female presents after sustaining dog bite to third digit of right hand, flap-like laceration overlying dorsal aspect of third digit, at PIP joint, full flexion extension intact neurovascular exam of limb intact, hemostatic no appreciable foreign bodies, will obtain x-ray to assess for any crush injury or retained foreign body will administer Augmentin, will boost patient's Tdap, Ring block performed 5 cc of lidocaine 1% without epi. Will irrigate extensively will explore wound deeply for any tendinous or neurovascular structures or signs of joint invasion. Given location for functionality purposes will likely close loosely at 2 points and leave remaining aspect of wound open for optimal drainage will be sent home on oral Augmentin 21: 58 irrigated wound extensively with sterile normal saline as well as wound irrigation solution, wound explored extensively no involve tendon or joint space, because laceration overlies the PIP joint I decided to tack down to corners of the laceration in order to ensure some approximation of soft tissue wound was left loosely approximated to allow for maximum drainage to prevent infection. Patient was given first dose of Augmentin here. Will continue for 7-day course. Given strict return precautions for any signs of infection. 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) COPD (chronic obstructive pulmonary disease) with acute bronchitis (Acute) Headache (Acute) Contact dermatitis (Acute) Migraine (Chronic) GERD with esophagitis (Acute) Duodenitis (Acute) Chronic erosive gastritis (Acute) Esophagitis, Colbert grade A (Acute) Gross hematuria (Acute) Renal cyst (Acute) Papanicolaou smear for cervical cancer screening (Acute) Abdominal pain (Acute) Left sciatic notch pain (Acute) Left buttock pain (Acute) Osteoarthritis of left hip joint due to dysplasia (Acute) Atypical chest pain (Acute) Pain in knee region after total knee replacement (Acute) Effusion, left knee (Acute) Chronic low back pain (Acute) Lumbar degenerative disc disease (Acute) Chronic headache (Acute) Migraine headache without aura (Acute) Migraine headache with aura (Acute) Atypical migraine (Acute) Tobacco abuse (Acute) Thyroid nodule (Acute) Diplopia (Acute) Vertigo (Chronic) Medical History Family history of breast cancer Hidradenitis suppurativa Dyspepsia Arthralgia Malaise and fatigue Prediabetes Tobacco use TIA (transient ischemic attack) 06/15-per pt. no residual deficits and has not been required to f/u with neuro Tear of medial meniscus of left knee Aspiration: 04/09/2019; 02/05/19 Depo-Medrol injection: 04/09/2019; 02/05/19 Left lateral epicondylitis s/p debridement 11/30/18 Tendinitis of both rotator cuffs (06/30/18) Asthma Obese Cigarette smoker Intertrigo Syncope Hyperthyroidism Migraine Depression Chronic pain Postmenopausal bleeding resolved Thyroid nodule Family history of colon cancer PTSD (post-traumatic stress disorder) Obstructive sleep apnea No CPAP at this time Surgical History History of total left knee replacement (TKR) (11/14/19) Dr. Brunson History of total right knee replacement (TKR) 2013 [facility] History of esophagogastroduodenoscopy (EGD) (~02/09/21) History of back surgery lower back, 07/2020 S/P left knee arthroscopy partial medial menisectomy and trochlear chondroplasty DOS: 05/17/19 Aspiration/Injection: 06/15/19 Status post left rotator cuff repair DOS: 11/30/2018 Dr. Brunson corticosteroid injection: 02/21/19 Replacement of total knee joint R Rotator Cuff Repair 2x on R, 1 x on L, pt report 2 on the left side EGD - [facility] (02/14/18) Colonoscopy - [facility] (02/14/18) Family History Father Rheumatoid arthritis Brother Rheumatoid arthritis Social History Smoking/Tobacco Use Status: Current-Occasional Tobacco Type: cigarettes Tobacco: How many years used: 25 Smoking risk assessment performed?: Yes Alcohol Intake: current Alcohol Intake frequency: holidays/special occasions only Drug use: Occasionally Substance use type: marijuana Housing: house Current gender identity: female Do you feel safe at home: Yes Do you feel safe in your relationship?: Yes
[2024-07-07] MEDS: Amoxicillin 875/Clav. 125 TAB PO (20:13)
--- NOTE | 2024-07-07 20:21 | DI.RAD_ITS ---
Exam(s) XR FINGER RT MIDDLE EXAM: XR FINGER RT MIDDLE CLINICAL HISTORY: dog bite, lac near PIP. TECHNIQUE: 2D digital imaging was performed. COMPARISON: No exams were available for comparison FINDINGS: There is soft tissue laceration of the dorsal aspect of the 3rd-middle finger. There is no radiopaqu e foreign body. No fractures identified. No dislocation of the subjacent proximal interphalangeal j oint. No gas in soft tissues. Incidentally noted is a mildly expansile lucent bone lesion in the distal phalanx of the 5th finger, this only included on the AP and view. There are no oblique nor lateral views of this incidental fin ding. This lesion measures approximately 4 x 4 mm and does not exhibit a sclerotic border. IMPRESSION: Soft tissue injury over the dorsal aspect of the 3rd-middle finger. No fractures. No radiopaque for eign body in the 3rd finger. Incidentally noted is a mildly expansile in lucent bone lesion in the distal phalanx of the 5th finge r, only included on the AP view and will require further oblique and lateral images. This probably r epresents an benign enchondroma or aneurysmal bone cyst. However cannot exclude it being metastatic. DATA REPOSITORY: RADIATION DOSE DELIVERED:
--- NOTE | 2024-07-07 21:54 | DI.VRAD_ITS ---
PROCEDURE INFORMATION: Exam: XR Right Finger(s) Exam date and time: 07/07/2024 8:18 PM Age: 54 years old Clinical indication: Injury or trauma; Middle finger; Right; Injury date: 07/07/24; Patient HX: Dog bite, lac near pip TECHNIQUE: Imaging protocol: Radiologic exam of the right fingers. Views: Minimum 2 views. COMPARISON: MRI R UPPER JOINT WO CONT 07/18/2017 5:35 PM FINDINGS: Bones/joints: There is a vertically oriented linear lucency at the base of the 3rd middle phalanx dorsally, series 3. This should be correlated with any concern for subtle fracture in this region. There is also some irregularity to the tuft of the 3rd digit which should be correlated with any concern for subtle fracture. Soft tissues: There is soft tissue swelling at the level of the PIP joint with a small locule of associated gas on series 3. This may correspond to the site of trauma. Soft tissue gas can also be seen with infection. Clinical correlation recommended. No radiopaque foreign body is identified in the soft tissues of the middle finger. It should be noted that some foreign bodies are not radiopaque. There is a punctate radiodensity in the soft tissues near the base of the 2nd proximal phalanx, series 1. This is favored to be on the skin surface, rather than represent a foreign body, as this is not the site of trauma. However, clinical correlation is recommended. There is a slightly expansile lucent lesion involving the distal phalanx of the 5th digit measuring 4 mm. IMPRESSION: 1.There is a vertically oriented linear lucency at the base of the 3rd middle phalanx dorsally, series 3. This should be correlated with any concern for subtle fracture. There is also some irregularity to the tuft of the 3rd digit which should be correlated with any concern for subtle fracture. 2. No radiopaque foreign bodies are appreciated in the region of the middle finger. It should be noted that some foreign bodies are not radiopaque. 3. There is soft tissue swelling at the level of the PIP joint of the middle finger with a small locule of associated gas on series 3. This may correspond to the site of trauma. Soft tissue gas can also be seen with infection. Clinical correlation recommended. 4. There is a slightly expansile lucent lesion involving the distal phalanx of the 5th digit. Differential possibilities could include a bone cyst, enchondroma, or aneurysmal bone cyst. Other types of lesions are not excluded. Findings should be correlated with any history of underlying malignancy/concern for metastases. If indicated, an orthopedics consult would be beneficial. Other findings/details as above. Dictated and Authenticated by: Charlette Ace MD. Ordering:KHUSHBU Roland MD
== END 2024-07-07 22:02 | disposition home or self-care (01) ==
PROVIDERS: Emergency Provider Emergency Medicine; PCP Nurse Practitioner Family
DX: S61.212A Laceration without foreign body of right middle finger without damage to nail, initial encounter (principal); Z23 Encounter for immunization; W54.0XXA Bitten by dog, initial encounter
CPT/HCPCS: 12001; 64450; 90471; 90715; 99284; 73140; 99283

== ENCOUNTER 2024-11-01 12:38 | Emergency (ER) | payer OTHER, MEDICAID, SELFPAY ==
[2024-11-01 12:42] VITALS: BP 103/73; PULSE 103; RESP 18; TEMP 36.5; O2SAT 94
--- NOTE | 2024-11-01 12:45 | DI.RAD_ITS ---
Exam(s) XR FOOT LT COMPLETE EXAM: XR FOOT LT COMPLETE CLINICAL HISTORY: L. lateral midfoot pain. TECHNIQUE: 2D digital imaging was performed. Three views. COMPARISON: CR RIGHT FOOT COMPLETE from 09/12/2014 FINDINGS: BONES: No acute fracture is present. No bony destructive lesion is seen. JOINTS: No dislocation present. SOFT TISSUE: Soft tissue swelling lateral to 5th MTP joint. IMPRESSION: Unremarkable radiographs of the left foot. DATA REPOSITORY: RADIATION DOSE DELIVERED:
--- NOTE | 2024-11-01 12:57 | ED.GENADUL_ITS ---
Discharge Plan Disposition Patient Disposition: Home Condition: Stable Discharge Details Clinical Impression: Acute pain of left foot, GERD (gastroesophageal reflux disease), Pain in knee region after total knee replacement, COPD (chronic obstructive pulmonary disease) with acute bronchitis Primary Care Provider: Lucy Courtney ED Provider: Ania Diamond Home Meds and New Rx's Prescriptions: No Action topiramate [Topamax] 100 mg tablet 100 mg PO BID sucralfate [Carafate] 1 gram tablet 1 g PO QACHS Qty: 120 12RF dexlansoprazole [Dexilant] 30 mg capsule,biphase delayed releas 30 mg PO DAILY Qty: 30 12RF Incruse Ellipta 62.5 mcg/actuation blister with device 1 inh INHALATION DAILY Patient Comments: INHALE ONE PUFF BY MOUTH EVERY DAY montelukast 10 mg tablet 10 mg PO DAILY Patient Comments: TAKE ONE TABLET BY MOUTH EVERY DAY acetaminophen 500 mg tablet 1,000 mg PO TID Qty: 90 0RF ibuprofen 600 mg tablet 600 mg PO TID PRN (Reason: pain) Qty: 90 0RF fluticasone propion-salmeterol [Advair HFA] 2 puff inhalation DAILY promethazine 25 mg/mL Syringe 25 mg IM PRN PRN Discharge Instructions Instructions: Managing acute pain at home Additional Instructions: You were seen in the emergency department today for evaluation of foot pain. In our department you have a full physical examination performed, and had an x-ray that showed no sign of foreign body, fracture, or other abnormality. You do have some swelling which you should continue to manage with Tylenol, ibuprofen, ice, and elevation. We provided you with a hard soled shoe, you can wear this as needed for comfort and support. I recommend that your primary care provider see you in the next few days to reevaluate you and discuss next steps in workup and management of your ongoing pain. Thank you for allowing us to be part of your care. HPI General Mode of arrival: ambulatory . Date/Time Provider Initiated Documentation: 11/01/24 12:46 . Limitations to Documentation: no limitations . Information obtained by: patient and old records reviewed . HPI Narrative: HPI: This is a 54-year-old female patient with a past medical history significant for COPD, GERD, bilateral knee replacements, who is presenting for evaluation of left foot pain. The patient reports that she was hunting over the weekend, was walking quite a bit but does not recall any specific traumatic ev ent. She is not sure if she stepped on something but did not notice any skin breaks or holes in the sole of her boots. She states that she has for the last several days noted pain in the lateral aspect of her foot, with some associated swelling. This is quite tender to the touch and has made wearing shoes and socks difficult. By the end of the day she states that her small toe is throbbing, has been able to bear weight on it but this does worsen her pain. She has been using Tylenol and ibuprofen for management of painful symptoms. She does not have any other pain or associated injuries. No fevers or chills, no history of surgery to the left foot. Exam: Gen: Awake and alert, in no apparent distress HEENT: Non-icteric sclera Neck: Supple Lungs: No apparent respiratory distress, normal respiratory effort. CV: Appears well perfused Abdomen: Non-distended MSK: Moves 4 extremities without apparent limitation in ROM. Bilateral knees are atraumatic, left foot with tenderness to palpation over the fifth metatarsal with no overlying skin changes. The patient has no tenderness to the ankle, medial aspect of the foot, has full range of motion of the toes. Sensation and circulation are intact with strong DP pulses. Skin: Visualized skin without rashes, cyanosis. Neuro: No obvious focal deficits or facial asymmetry. Speaks in full, clear sentences. Psych: Appropriate for situation. MDM: This is a 54-year-old female patient presenting for evaluation of left foot pain. Differential includes but is not limited to fracture dislocation, specifically considered Maldonado or stress fractures of the fifth metatarsal. I certainly considered foreign body, though the patient has no skin breaks or injury points to suggest same. The patient's neurovascular examination is quite reassuring. No overlying skin changes to increase my concern for cellulitis or infection. At this time the patient is not desiring of any medications for management of pain. Will obtain an x-ray image of the affected left foot. ED Course: Independently interpreted the patient's x-ray, which shows no evidence of fracture, dislocation, or foreign body. Does demonstrate soft tissue swelling, and on reassessment remains without redness, warmth, or evidence concerning for infection. We discussed conservative management with Tylenol, ibuprofen, ice and elevation. I had a shared decision-making conversation with the patient and we have elected to trial a hard soled shoe for support and comfort. The patient needs to follow-up with her primary care provider for reassessment in the next few days. At this time, the patient has had a full medical evaluation and is safe for discharge to home. They are hemodynamically stable, ambulatory, and tolerating PO. They are understanding of the follow-up plan and return precautions. They left our facility without incident. Ania Diamond MD Related Data Home Medications ?Medication ?Instructions ?Recorded ?Confirmed topiramate 100 mg tablet (Topamax) 100 mg PO BID 12/26/20 11/01/24 montelukast 10 mg tablet 10 mg PO DAILY 05/18/21 11/01/24 umeclidinium 62.5 mcg/actuation 1 inh inhalation DAILY 05/18/21 11/01/24 blister powder for inhalation (Incruse Ellipta) sucralfate 1 gram tablet (Carafate) 1 g PO QACHS #120 tabs 01/21/23 11/01/24 dexlansoprazole 30 mg 30 mg PO DAILY #30 caps 03/14/23 11/01/24 capsule,biphase delayed release (Dexilant) promethazine 25 mg/mL injection 25 mg IM PRN PRN 05/28/23 11/01/24 syringe acetaminophen 500 mg tablet 1,000 mg (2 x 500 mg) PO TID #90 06/13/24 11/01/24 tabs fluticasone propion-salmeterol 2 puff inhalation DAILY 06/13/24 11/01/24 ibuprofen 600 mg tablet 600 mg PO TID PRN pain #90 tabs 06/13/24 11/01/24 Previous Rx's ?Medication ?Instructions ?Recorded sucralfate 1 gram tablet (Carafate) 1 g PO QACHS #120 tabs 01/21/23 dexlansoprazole 30 mg 30 mg PO DAILY #30 caps 03/14/23 capsule,biphase delayed release (Dexilant) acetaminophen 500 mg tablet 1,000 mg (2 x 500 mg) PO TID #90 06/13/24 tabs ibuprofen 600 mg tablet 600 mg PO TID PRN pain #90 tabs 06/13/24 Allergies Allergy/AdvReac Type Severity Reaction Status Date / Time adhesive Allergy Intermediate gets red Verified 11/01/24 12:47 and welts up codeine Allergy Intermediate Itching Verified 11/01/24 12:47 oxycodone HCl (From Percocet) Allergy Intermediate Anaphylaxsi Verified 11/01/24 12:47 s morphine Allergy Itching Verified 11/01/24 12:47 cyclobenzaprine (From AdvReac Headache Verified 11/01/24 12:47 Flexeril) General Stated Complaint: Orthopedic CRISTI: 4 Course Vital Signs Vital signs: Vital Signs Temperature 36.5 C 11/01/24 12:42 Pulse 103 H 11/01/24 12:42 Respiratory Rate 18 11/01/24 12:42 Blood Pressure 103/73 11/01/24 12:42 Pulse Oximetry 94 11/01/24 12:42 Temperature 36.5 C 11/01/24 12:42 Pulse 103 H 11/01/24 12:42 Respiratory Rate 18 11/01/24 12:42 Respiratory Effort Normal 11/01/24 12:45 Blood Pressure 103/73 11/01/24 12:42 Pulse Oximetry 94 11/01/24 12:42 Oxygen Delivery Method Room Air 11/01/24 12:42 Oxygen Flow Rate 0 11/01/24 12:42 Pain Level 5 11/01/24 12:42 Medical Decision Making Quality:SDOH Health Related Social Needs: No Data to Display PFSH All Active Problems (Updated 11/01/24 @ 14:28 by Ania Diamond MD) Acute pain of left foot (Acute) Erosive esophagitis (Acute) Family history of gallbladder disease in sister (Acute) Postprandial RUQ pain (Acute) 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 (Acute) COPD (chronic obstructive pulmonary disease) with acute bronchitis (Acute) Headache (Acute) Contact dermatitis (Acute) Migraine (Chronic) GERD with esophagitis (Acute) Duodenitis (Acute) Chronic erosive gastritis (Acute) Esophagitis, [place] grade A (Acute) Gross hematuria (Acute) Renal cyst (Acute) Papanicolaou smear for cervical cancer screening (Acute) Abdominal pain (Acute) Left sciatic notch pain (Acute) Left buttock pain (Acute) Osteoarthritis of left hip joint due to dysplasia (Acute) Atypical chest pain (Acute) Pain in knee region after total knee replacement (Acute) Effusion, left knee (Acute) Chronic low back pain (Acute) Lumbar degenerative disc disease (Acute) Chronic headache (Acute) Migraine headache without aura (Acute) Migraine headache with aura (Acute) Atypical migraine (Acute) Tobacco abuse (Acute) Thyroid nodule (Acute) Diplopia (Acute) Vertigo (Chronic) GERD (gastroesophageal reflux disease) (Chronic) Medical History Family history of breast cancer Hidradenitis suppurativa Dyspepsia Arthralgia Malaise and fatigue Prediabetes Tobacco use TIA (transient ischemic attack) 06/15-per pt. no residual deficits and has not been required to f/u with neuro Tear of medial meniscus of left knee Aspiration: 04/09/2019; 02/05/19 Depo-Medrol injection: 04/09/2019; 02/05/19 Left lateral epicondylitis s/p debridement 11/30/18 Tendinitis of both rotator cuffs (06/30/18) Asthma Obese Cigarette smoker Intertrigo Syncope Hyperthyroidism Migraine Depression Chronic pain Postmenopausal bleeding resolved Thyroid nodule Family history of colon cancer PTSD (post-traumatic stress disorder) Obstructive sleep apnea No CPAP at this time Surgical History History of total left knee replacement (TKR) (11/14/19) Dr. Brunson History of total right knee replacement (TKR) 2013 [facility] History of esophagogastroduodenoscopy (EGD) (~02/09/21) History of back surgery lower back, 07/2020 S/P left knee arthroscopy partial medial menisectomy and trochlear chondroplasty DOS: 05/17/19 Aspiration/Injection: 06/15/19 Status post left rotator cuff repair DOS: 11/30/2018 Dr. Brunson corticosteroid injection: 02/21/19 Replacement of total knee joint R Rotator Cuff Repair 2x on R, 1 x on L, pt report 2 on the left side EGD - MAC (02/14/18) Colonoscopy - MAC (02/14/18) Family History Father Rheumatoid arthritis Brother Rheumatoid arthritis Social History Smoking/Tobacco Use Status: Current-Occasional Tobacco Type: cigarettes Tobacco: How many years used: 25 Smoking risk assessment performed?: Yes Alcohol Intake: current Alcohol Intake frequency: holidays/special occasions only Drug use: Occasionally Substance use type: marijuana Housing: house Current gender identity: female Do you feel safe at home: Yes Do you feel safe in your relationship?: Yes
[2024-11-01 13:47] VITALS: BP 110/80; PULSE 95; RESP 18; O2SAT 98
== END 2024-11-01 14:48 | disposition home or self-care (01) ==
PROVIDERS: Emergency Provider Emergency Medicine; PCP Nurse Practitioner Family
DX: M79.672 Pain in left foot (principal); K21.9 Gastro-esophageal reflux disease without esophagitis; J44.9 Chronic obstructive pulmonary disease, unspecified; F17.210 Nicotine dependence, cigarettes, uncomplicated; Z96.653 Presence of artificial knee joint, bilateral
CPT/HCPCS: 99283; 73630

== ENCOUNTER 2024-11-21 17:24 | Emergency (ER) | payer OTHER, MEDICAID, SELFPAY ==
[2024-11-21 17:35] VITALS: BP 168/98; PULSE 97; RESP 18; TEMP 36.8; O2SAT 95
--- NOTE | 2024-11-21 18:14 | DI.RAD_ITS ---
Exam(s) XR CHEST 2V PA LATERAL EXAM: XR CHEST 2V PA LATERAL CLINICAL HISTORY: Cough, SOB, eval PNA, bronchitis TECHNIQUE: 2D digital imaging was performed. Two views. COMPARISON: CT CT CHEST LUNG CANCER SCREEN from 02/27/2024 FINDINGS: HEART: Normal size. Aorta: Not dilated. PULMONARY VASCULATURE: Normal. MEDIASTINUM: Unremarkable. LUNGS: No focal consolidation. Patchy densities in the perihilar regions as well as bronchial thicke dominic could indicate bronchitis. PLEURAL SPACE: No pleural effusion or pneumothorax. BONE:Unremarkable for age. SOFT TISSUES: Unremarkable. IMPRESSION: Patchy densities in the perihilar regions as well as bronchial thickening could indicate bronchitis. DATA REPOSITORY: RADIATION DOSE DELIVERED:
[2024-11-21 18:41] LABS: COVID-19 PCR Negative (Negative); Influenza A PCR Negative (Negative); Influenza B PCR Negative (Negative); RSV PCR Negative (Negative)
[2024-11-21 18:43] LABS: Source Nasopharynx
--- NOTE | 2024-11-21 18:53 | DI.VRAD_ITS ---
PROCEDURE INFORMATION: Exam: XR Chest Exam date and time: 11/21/2024 18:11 Age: 54 years old Clinical indication: Shortness of breath TECHNIQUE: Imaging protocol: Radiologic exam of the chest. Views: 2 views. COMPARISON: CT CHEST LUNG CANCER SCREEN 02/27/2024 13:17 FINDINGS: Lungs: Mild central interstitial thickening. No airspace consolidation. Pleural spaces: No pleural effusion. No pneumothorax. Heart/Mediastinum: No cardiomegaly. Bones/joints: Chronic appearing osteolysis of the distal right clavicle. IMPRESSION: Interstitial disease suggesting bronchitis. Dictated and Authenticated by: Gina Billingsley MD. Ordering:ERIN Phelan MD
--- NOTE | 2024-11-21 18:57 | ED.GENADUL_ITS ---
Discharge Plan Disposition Patient Disposition: Home Condition: Stable Discharge Details Clinical Impression: Bronchitis, GERD with esophagitis, Migraine, COPD (chronic obstructive pulmonary disease) with acute bronchitis Primary Care Provider: Lucy Courtney ED Provider: Ania Diamond Home Meds and New Rx's Prescriptions: New albuterol sulfate [Ventolin HFA] 90 mcg/actuation Hfa Aerosol Inhaler 2 puff inhalation DISPENSE Qty: 0 0RF No Action topiramate [Topamax] 100 mg tablet 100 mg PO BID sucralfate [Carafate] 1 gram tablet 1 g PO QACHS Qty: 120 12RF dexlansoprazole [Dexilant] 30 mg capsule,biphase delayed releas 30 mg PO DAILY Qty: 30 12RF Incruse Ellipta 62.5 mcg/actuation blister with device 1 inh INHALATION DAILY Patient Comments: INHALE ONE PUFF BY MOUTH EVERY DAY montelukast 10 mg tablet 10 mg PO DAILY Patient Comments: TAKE ONE TABLET BY MOUTH EVERY DAY acetaminophen 500 mg tablet 1,000 mg PO TID Qty: 90 0RF ibuprofen 600 mg tablet 600 mg PO TID PRN (Reason: pain) Qty: 90 0RF fluticasone propion-salmeterol [Advair HFA] 2 puff inhalation DAILY Discharge Instructions Instructions: Bronchitis, Adult ED Additional Instructions: You were seen in the emergency department today for evaluation of cough and were found to have bronchitis. This is likely due to a virus, though your COVID, influenza, and RSV testing was negative. You had reassuring vital signs, and it is safe for you to go home and continue to use [id number] medications as needed for symptoms. I also recommend that you restart your albuterol, and I provided you with an inhaler and a spacer. You will call your primary care provider tomorrow to discuss this visit and any symptoms that change, worsen, or persist. Thank you for allowing us to be part of your care. HPI General Mode of arrival: ambulatory . Date/Time Provider Initiated Documentation: 11/21/24 17:48 . Limitations to Documentation: no limitations . Information obtained by: patient, family and old records reviewed . HPI Narrative: HPI: This is a 54-year-old female patient with a past medical history significant for Asthma/COPD, history of chronic bronchitis, GERD, who is presenting for evaluation of 1 week of cough. The patient states that she has run out of her home inhalers, and has noted that this cough has been worsening over the last week. Is productive of nonbloody sputum, but is not associated with any fevers. The patient has been using [id number] medications such as NyQuil for management of her symptoms. States that the cough makes it difficult for her to sleep. The patient has been eating and drinking normally, has not had any associated symptoms, and is otherwise in her normal state of health without acute concern. She has taken numerous COVID tests at home that were negative Exam: Gen: Awake and alert, in no apparent distress HEENT: Non-icteric sclera Neck: Supple Lungs: No apparent respiratory distress, normal respiratory effort. Lung sounds clear and equal without wheezing, rhonchi, rales. The patient does not have a prolonged expiratory phase. CV: Appears well perfused, heart with regular rate and rhythm Abdomen: Non-distended MSK: Moves 4 extremities without apparent limitation in ROM Skin: Visualized skin without rashes, cyanosis. Neuro: Normal Gait, no obvious focal deficits or facial asymmetry. Speaks in full, clear sentences. Psych: Appropriate for situation. MDM: This is a 54-year-old female patient presenting for evaluation of cough. My differential includes but is not limited to viral URI, bronchitis, pneumonia. No evidence on my physical examination for fluid overload to suggest pulmonary edema. Considered reactive airway disease exacerbation though the patient is without wheezing to just suggest same. She is maintaining her hydration and I have a low concern for metabolic and electrolyte derangements. She is not hypoxic, tachycardic, and is otherwise well-appearing ED Course: Fluvid negative, x-ray most consistent with bronchitis, the patient was provided with albuterol inhaler and spacer. She will follow-up with her primary care provider in the next few days to discuss this visit and any symptoms that change, worsen, or persist. There is no indication at this time for antibiotics. At this time, the patient has had a full medical evaluation and is safe for discharge to home. They are hemodynamically stable, ambulatory, and tolerating PO. They are understanding of the follow-up plan and return precautions. They left our facility without incident. Ania Diamond MD Related Data Home Medications ?Medication ?Instructions ?Recorded ?Confirmed topiramate 100 mg tablet (Topamax) 100 mg PO BID 12/26/20 11/21/24 montelukast 10 mg tablet 10 mg PO DAILY 05/18/21 11/21/24 umeclidinium 62.5 mcg/actuation 1 inh inhalation DAILY 05/18/21 11/21/24 blister powder for inhalation (Incruse Ellipta) sucralfate 1 gram tablet (Carafate) 1 g PO QACHS #120 tabs 01/21/23 11/21/24 dexlansoprazole 30 mg 30 mg PO DAILY #30 caps 03/14/23 11/21/24 capsule,biphase delayed release (Dexilant) acetaminophen 500 mg tablet 1,000 mg (2 x 500 mg) PO TID #90 06/13/24 11/21/24 tabs fluticasone propion-salmeterol 2 puff inhalation DAILY 06/13/24 11/21/24 ibuprofen 600 mg tablet 600 mg PO TID PRN pain #90 tabs 06/13/24 11/21/24 albuterol sulfate 90 mcg/actuation 2 puff inhalation DISPENSE #0 grams 11/21/24 aerosol inhaler (Ventolin HFA) Previous Rx's ?Medication ?Instructions ?Recorded sucralfate 1 gram tablet (Carafate) 1 g PO QACHS #120 tabs 01/21/23 dexlansoprazole 30 mg 30 mg PO DAILY #30 caps 03/14/23 capsule,biphase delayed release (Dexilant) acetaminophen 500 mg tablet 1,000 mg (2 x 500 mg) PO TID #90 06/13/24 tabs ibuprofen 600 mg tablet 600 mg PO TID PRN pain #90 tabs 06/13/24 albuterol sulfate 90 mcg/actuation 2 puff inhalation DISPENSE #0 grams 11/21/24 aerosol inhaler (Ventolin HFA) Allergies Allergy/AdvReac Type Severity Reaction Status Date / Time adhesive Allergy Intermediate gets red Verified 11/21/24 17:39 and welts up codeine Allergy Intermediate Itching Verified 11/21/24 17:39 oxycodone HCl (From Percocet) Allergy Intermediate Anaphylaxsi Verified 11/21/24 17:39 s morphine Allergy Itching Verified 11/21/24 17:39 cyclobenzaprine (From AdvReac Headache Verified 11/21/24 17:39 Flexeril) General Stated Complaint: RespSymp CRISTI: 4 Course Vital Signs Vital signs: Vital Signs Temperature 36.8 C 11/21/24 17:35 Pulse 97 H 11/21/24 17:35 Respiratory Rate 18 11/21/24 17:35 Blood Pressure 168/98 H 11/21/24 17:35 Pulse Oximetry 95 11/21/24 17:35 Temperature 36.8 C 11/21/24 17:35 Pulse 97 H 11/21/24 17:35 Respiratory Rate 18 11/21/24 17:35 Respiratory Effort Short of Breath 11/21/24 18:22 Respiratory Depth Normal 11/21/24 18:22 Blood Pressure 168/98 H 11/21/24 17:35 Pulse Oximetry 95 11/21/24 17:35 Pain Level 4 11/21/24 17:35 Lab/Test Results Lab/Test Results: Laboratory Tests Range/Units 11/21/24 18:00 COVID-19 Source Nasopharynx SARS-CoV-2 (PCR) (Negative) Negative Influenza Type A (PCR) (Negative) Negative Influenza Type B (PCR) (Negative) Negative RSV (PCR) (Negative) Negative Medical Decision Making Quality:SDOH Health Related Social Needs: No Data to Display PFSH All Active Problems (Updated 11/21/24 @ 18:58 by Ania Diamond MD) Bronchitis (Acute) Acute pain of left foot (Acute) Erosive esophagitis (Acute) Family history of gallbladder disease in sister (Acute) Postprandial RUQ pain (Acute) 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 (Acute) COPD (chronic obstructive pulmonary disease) with acute bronchitis (Acute) Headache (Acute) Contact dermatitis (Acute) Migraine (Chronic) GERD with esophagitis (Acute) Duodenitis (Acute) Chronic erosive gastritis (Acute) Esophagitis, [place] grade A (Acute) Gross hematuria (Acute) Renal cyst (Acute) Papanicolaou smear for cervical cancer screening (Acute) Abdominal pain (Acute) Left sciatic notch pain (Acute) Left buttock pain (Acute) Osteoarthritis of left hip joint due to dysplasia (Acute) Atypical chest pain (Acute) Pain in knee region after total knee replacement (Acute) Effusion, left knee (Acute) Chronic low back pain (Acute) Lumbar degenerative disc disease (Acute) Chronic headache (Acute) Migraine headache without aura (Acute) Migraine headache with aura (Acute) Atypical migraine (Acute) Tobacco abuse (Acute) Thyroid nodule (Acute) Diplopia (Acute) Vertigo (Chronic) GERD (gastroesophageal reflux disease) (Chronic) Medical History Family history of breast cancer Hidradenitis suppurativa Dyspepsia Arthralgia Malaise and fatigue Prediabetes Tobacco use TIA (transient ischemic attack) 06/15-per pt. no residual deficits and has not been required to f/u with neuro Tear of medial meniscus of left knee Aspiration: 04/09/2019; 02/05/19 Depo-Medrol injection: 04/09/2019; 02/05/19 Left lateral epicondylitis s/p debridement 11/30/18 Tendinitis of both rotator cuffs (06/30/18) Asthma Obese Cigarette smoker Intertrigo Syncope Hyperthyroidism Migraine Depression Chronic pain Postmenopausal bleeding resolved Thyroid nodule Family history of colon cancer PTSD (post-traumatic stress disorder) Obstructive sleep apnea No CPAP at this time Surgical History History of total left knee replacement (TKR) (11/14/19) Dr. Brunson History of total right knee replacement (TKR) 2013 [facility] History of esophagogastroduodenoscopy (EGD) (~02/09/21) History of back surgery lower back, 07/2020 S/P left knee arthroscopy partial medial menisectomy and trochlear chondroplasty DOS: 05/17/19 Aspiration/Injection: 06/15/19 Status post left rotator cuff repair DOS: 11/30/2018 Dr. Brunson corticosteroid injection: 02/21/19 Replacement of total knee joint R Rotator Cuff Repair 2x on R, 1 x on L, pt report 2 on the left side EGD - MAC (02/14/18) Colonoscopy - MAC (02/14/18) Family History Father Rheumatoid arthritis Brother Rheumatoid arthritis Social History Smoking/Tobacco Use Status: Current-Occasional Tobacco Type: cigarettes Tobacco: How many years used: 25 Smoking risk assessment performed?: Yes Alcohol Intake: current Alcohol Intake frequency: holidays/special occasions only Drug use: Occasionally Substance use type: marijuana Housing: house Current gender identity: female Do you feel safe at home: Yes Do you feel safe in your relationship?: Yes
[2024-11-21] MEDS: Inhaler, Assist Device 1 EACH MC (19:02)
[2024-11-21] MEDS: Albuterol HFA 8 GM 60 PUFF INH IH (19:02)
== END 2024-11-21 19:30 | disposition home or self-care (01) ==
PROVIDERS: Emergency Provider Emergency Medicine; PCP Nurse Practitioner Family
DX: J20.9 Acute bronchitis, unspecified (principal); J44.0 Chronic obstructive pulmonary disease with (acute) lower respiratory infection; K21.00 Gastro-esophageal reflux disease with esophagitis, without bleeding; E03.9 Hypothyroidism, unspecified; Z86.73 Personal history of transient ischemic attack (TIA), and cerebral infarction without residual deficits; F17.210 Nicotine dependence, cigarettes, uncomplicated; Z79.899 Other long term (current) drug therapy
CPT/HCPCS: 87637; 99284; 71046

== ENCOUNTER 2024-12-18 01:42 | Outpatient (CLI) | payer MEDICARE, MEDICAID, SELFPAY ==
--- NOTE | 2024-12-18 | DI.RAD_ITS ---
Exam(s) XR SHOULDER LT COMPLETE 2+V EXAM: XR SHOULDER LT COMPLETE 2+V CLINICAL HISTORY: PAIN LT SHOULDER, M25.512. TECHNIQUE: 2D digital imaging was performed. COMPARISON: CR XR SCAPULA LT from 12/18/2024 FINDINGS: Four views No evidence fracture or dislocation or abnormal sys soft tissue densities. Subacromial space is not diminished. There is widening of the AC joint which is probably postsurgical and unchanged. Minimal degenerative changes in the glenohumeral joint. No osteophytes. No osseous lesions IMPRESSION: As above. No acute fractures. DATA REPOSITORY: RADIATION DOSE DELIVERED:
--- NOTE | 2024-12-18 | DI.RAD_ITS ---
Exam(s) XR SCAPULA LT EXAM: XR SCAPULA LT CLINICAL HISTORY: LT SHOULDER PAIN,M25.12. TECHNIQUE: 2D digital imaging was performed. COMPARISON: CR LEFT SHOULDER COMPLETE from 06/16/2018 FINDINGS: Two views No evidence scapular fracture. Bone density. No osseous lesions. IMPRESSION: No scapular fracture evident DATA REPOSITORY: RADIATION DOSE DELIVERED:
--- NOTE | 2024-12-18 | DI.RAD_ITS ---
Exam(s) XR CLAVICLE LT EXAM: XR CLAVICLE LT CLINICAL HISTORY: PAIN LT SHOULDER JOINT, M25.512. TECHNIQUE: 2D digital imaging was performed. COMPARISON: CR,XR XR CHEST 2V PA LATERAL from 11/21/2024 FINDINGS: Two views No evidence of left clavicle fracture. There is widening of the AC joint is not acute was evident pr ior radiographs IMPRESSION: No acute fracture evident. DATA REPOSITORY: RADIATION DOSE DELIVERED:
== END 2024-12-18 02:02 ==
PROVIDERS: PCP Nurse Practitioner Family; Visit Provider Nurse Practitioner Family
DX: M25.512 Pain in left shoulder (principal)
CPT/HCPCS: 73000; 73010; 73030

== ENCOUNTER → 2024-12-25 13:50 | Outpatient (BNVA) | payer MEDICARE, MEDICAID, SELFPAY | PROVIDERS: PCP Nurse Practitioner Family; Referring Provider Nurse Practitioner Family; Visit Provider Student in an Organized Health Care Education/Training Program | DX: M75.102 Unspecified rotator cuff tear or rupture of left shoulder, not specified as traumatic (principal); W19.XXXA Unspecified fall, initial encounter | CPT/HCPCS: 99213 ==

== ENCOUNTER 2025-01-10 02:40 | Outpatient (CLI) | payer MEDICARE, MEDICAID, SELFPAY ==
--- NOTE | 2025-01-10 13:34 | DI.RAD_ITS ---
Exam(s) XR FOOT LT COMPLETE EXAM: XR FOOT LT COMPLETE CLINICAL HISTORY: Left foot pain,M79.672. TECHNIQUE: 2D digital imaging was performed. Three views. COMPARISON: CR XR FOOT LT COMPLETE from 11/01/2024 FINDINGS: BONES: No acute fracture is present. No bony destructive lesion is seen. Tiny heel spurs. JOINTS: No dislocation present. No significant degenerative changes. Plantar arch is maintained. SOFT TISSUE: Normal. IMPRESSION: Unremarkable radiographs of the left foot. DATA REPOSITORY: RADIATION DOSE DELIVERED:
== END 2025-01-10 03:00 ==
LOC: DI 02:40
PROVIDERS: PCP Nurse Practitioner Family; Visit Provider Podiatrist
DX: M79.672 Pain in left foot (principal)
CPT/HCPCS: 29580; 29850; 73630

== ENCOUNTER 2025-01-30 02:26 | Outpatient (CLI) | payer MEDICARE, MEDICAID, SELFPAY ==
--- NOTE | 2025-01-30 06:37 | DI.MRI_ITS ---
Exam(s) MR UPPER JOINT LT WO EXAM: MR UPPER JOINT LT WO CLINICAL HISTORY: L SHOULDER PAIN, ? RTC TEAR,M75.102. TECHNIQUE: Multiplanar multisequence MRI was performed. COMPARISON: Plain films 18 December 2024 FINDINGS: BONES: There is no fracture or contusion pattern. JOINTS:The acromioclavicular joint shows some fluid and mild spurring. May be some impingement on th e distal supraspinatus muscle. No abnormal signal within the muscle. Mild AC joint widening may be secondary to prior surgery. There is some deformity of the distal acromion. The glenohumeral joint is normal. TENDONS: Supraspinatus: Minimal focus of high signal. Infraspinatus: Unremarkable. Subscapularis: Unremarkable. [place]: Unremarkable. Biceps and [place]: Unremarkable. MUSCLES: Unremarkable. GLENOID LABRUM: Unremarkable on this noncontrast examination. SOFT TISSUES: Small metallic artifacts related to previous surgery. BURSAE: Subacromial and subdeltoid bursae shows small amount of fluid.. IMPRESSION: Minimal focus of high signal in the supraspinatus tendon in the indicated a small partial tear. Postsurgical changes of the AC joint. DATA REPOSITORY:
== END 2025-01-30 02:46 ==
LOC: DI 02:27
PROVIDERS: PCP Nurse Practitioner Family; Visit Provider Student in an Organized Health Care Education/Training Program
DX: M75.112 Incomplete rotator cuff tear or rupture of left shoulder, not specified as traumatic (principal)
CPT/HCPCS: 73221

== ENCOUNTER → 2025-02-07 15:24 | Outpatient (BNVA) | payer MEDICARE, MEDICAID, SELFPAY | PROVIDERS: PCP Nurse Practitioner Family; Referring Provider Nurse Practitioner Family; Visit Provider Podiatrist | DX: M79.672 Pain in left foot (principal); M76.72 Peroneal tendinitis, left leg; B35.1 Tinea unguium; Z59.71 Insufficient health insurance coverage | CPT/HCPCS: 99214 ==

== ENCOUNTER → 2025-02-12 10:13 | Outpatient (BNVA) | payer MEDICARE, MEDICAID, SELFPAY | PROVIDERS: PCP Nurse Practitioner Family; Referring Provider Nurse Practitioner Family; Visit Provider Student in an Organized Health Care Education/Training Program | DX: M75.102 Unspecified rotator cuff tear or rupture of left shoulder, not specified as traumatic (principal) | CPT/HCPCS: 99213 ==

== ENCOUNTER → 2025-03-21 14:52 | Outpatient (BNVA) | payer MEDICARE, MEDICAID, SELFPAY | PROVIDERS: PCP Nurse Practitioner Family; Referring Provider Nurse Practitioner Family; Visit Provider Podiatrist | DX: M79.672 Pain in left foot (principal); M76.62 Achilles tendinitis, left leg; B35.1 Tinea unguium | CPT/HCPCS: 99213 ==

== ENCOUNTER 2025-04-01 01:01 | Outpatient (CLI) | payer MEDICARE, MEDICAID, SELFPAY ==
--- NOTE | 2025-04-01 08:50 | DI.MAMMO_ITS ---
Exam(s) MAMMO SCREENING EXAM: MAMMO SCREENING CLINICAL HISTORY: Screening, Z12.31; family h/o malignant neoplasm of breast, Z80.3. TECHNIQUE: Bilateral full field digital CC and MLO mammographic images were obtained with 3D tomosyn thesis and utilizing computer aided detection (CAD). COMPARISON: Prior mammograms were reviewed. FINDINGS: There has been no significant change in the appearance and distribution of the fibroglandular tissue. There are no new spiculated masses nor malignant appearing microcalcification groups. There is no significant architectural distortion nor skin thickening-retraction. IMPRESSION: No radiographic evidence of malignancy. BI-RADS Category 1 - Negative Breast Density - Category B - There are scattered areas of fibroglandular density. Breast density Category C or D implies that the patient has dense breast tissue. Dense breast tissue can make it harder to find cancer on a mammogram. Dense breast tissue is also associated with an incr eased risk of breast cancer. This information about the result of the mammogram report was provided to the patient to raise their awareness. Use this report when you speak with the patient about their risks for breast cancer, which includes their family history. At that time, you may recommend additional screening tests (Ultrasoun d or MRI) as these tests may add significant information. A negative radiographic report should not delay biopsy if a dominant or clinically suspicious mass is present. Up to ten percent of cancers are not identified on mammography. A negative report may reinforce clinical impression. Adenosis and dense breasts may obscure an underlying neoplasm. False positive reports average 6 to 10%. Patient will receive a letter notifying them of these results.
== END 2025-04-01 01:21 ==
LOC: DI 01:01
PROVIDERS: PCP Nurse Practitioner Family; Visit Provider Nurse Practitioner Family
DX: Z12.31 Encounter for screening mammogram for malignant neoplasm of breast (principal); Z80.3 Family history of malignant neoplasm of breast; R92.323 Mammographic fibroglandular density, bilateral breasts
CPT/HCPCS: 77063; 77067

== ENCOUNTER 2025-04-17 07:33 | Outpatient (CLI) | payer MEDICARE, MEDICAID, SELFPAY ==
[2025-04-17 07:35] LABS: Abs Immature Grans 0.02 10^3/uL (0.0-0.06); Absolute Basophil Count 0.04 10^3/uL (0.0-0.2); Absolute Eosinophil Count 0.22 10^3/uL (0.0-0.7); Absolute Lymphocyte Count 2.56 10^3/uL (1.2-3.4); Absolute Monocyte Count 0.81 10^3/uL (0.1-0.8); Absolute Neutrophil Count 3.52 10^3/uL (1.2-6.7); Basophils % 0.6 %; Eosinophils % 3.1 %; HCT 47.2 % (36.0-46.0); HGB 15.3 g/dL (11.2-15.7); Immature Grans % 0.3 %; Lymphocytes % 35.7 %; MCH 29.2 pg (27.0-33.0); MCHC 32.4 % (32.0-36.0); MCV 90 fL (80-95); MPV 9.3 fL (8.0-11.0); Monocytes % 11.3 %; Platelet Count 261 10^3/uL (130-400); RBC 5.24 10^6/uL (3.93-5.22); RDW 13.7 % (11.7-14.6); RDW-SD 45.3 fL; WBC 7.17 10^3/uL (4.4-10.8)
[2025-04-17 08:36] LABS: ALT 26 U/L (14-59); AST 19 U/L (15-37); Albumin 3.5 g/dL (3.4-5.0); Alkaline Phosphatase 75 U/L (46-116); Anion Gap 6.6 mmol/L (3-11); BUN 16 mg/dL (7-18); Bilirubin, Total 0.5 mg/dL (0.2-1.0); CO2 28.4 mmol/L (21.0-32.0); Calculated LDL 113 mg/dL (<100); Chloride 105 mmol/L (98-107); Cholesterol 194 mg/dL (<200); Estimated GFR 66.95 (mL/min/1.73m2); Glucose 109 mg/dL (74-106); HDL Cholesterol 47 mg/dL (>or=50); Potassium 3.9 mmol/L (3.5-5.1); Sodium 140 mmol/L (136-145); TSH 1.53 uIU/mL (0.36-3.74); Total Protein 7.6 g/dL (6.4-8.2); Triglyceride 172 mg/dL (<150); Vitamin B12 495 pg/mL (193-986)
[2025-04-17 09:11] LABS: FREE T4 1.07 ng/dL (0.76-1.46)
[2025-04-17 18:46] LABS: T3, Total 179 ng/dL (97-169)
== END 2025-04-17 07:34 | disposition home or self-care (01) ==
LOC: LBO 07:33
PROVIDERS: PCP Nurse Practitioner Family; Visit Provider Nurse Practitioner Family
DX: K76.0 Fatty (change of) liver, not elsewhere classified (principal); E05.90 Thyrotoxicosis, unspecified without thyrotoxic crisis or storm
CPT/HCPCS: 36415; 80053; 80061; 82607; 83735; 84439; 84443; 84480; 85025

== ENCOUNTER 2025-04-29 10:35 | Emergency (ER) | payer MEDICARE, MEDICAID, SELFPAY ==
[2025-04-29 10:38] VITALS: BP 136/89; PULSE 79; RESP 16; TEMP 36.6; O2SAT 98
[2025-04-29] MEDS: Ketorolac 15 MG/ML VIAL IM (11:26)
[2025-04-29] MEDS: diazePAM 10 MG/2 ML SYR 5 MG IM (11:27)
[2025-04-29 12:01] VITALS: BP 155/113; PULSE 66; RESP 18; O2SAT 99
--- NOTE | 2025-04-30 09:34 | ED.GENADUL_ITS ---
Discharge Plan Disposition Patient Disposition: Home Discharge Details Clinical Impression: Lumbar back pain Primary Care Provider: Lucy Courtney ED Provider: Jojo Joyner Home Meds and New Rx's Prescriptions: New prednisone 20 mg tablet 40 mg PO ONCE Qty: 10 0RF diazepam [Valium] 5 mg tablet 5 mg PO BID PRNQty: 10 0RF Continued topiramate [Topamax] 100 mg tablet 100 mg PO BID tizanidine 2 mg tablet 2 mg PO Q6H PRN sucralfate [Carafate] 1 gram tablet 1 g PO QACHS PRN ketoconazole 2 % cream 1 applic topical DAILY Qty: 120 6RF Rx Instructions: Apply to toenails once daily Nurtec ODT 75 mg tablet,disintegrating 75 mg PO ONCE PRN Rx Instructions: as a single dose dexlansoprazole [Dexilant] 30 mg capsule,biphase delayed releas 30 mg PO DAILY Qty: 30 12RF Incruse Ellipta 62.5 mcg/actuation blister with device 1 inh INHALATION DAILY Patient Comments: INHALE ONE PUFF BY MOUTH EVERY DAY montelukast 10 mg tablet 10 mg PO DAILY Patient Comments: TAKE ONE TABLET BY MOUTH EVERY DAY ibuprofen 600 mg tablet 600 mg PO TID PRN (Reason: pain) Qty: 90 0RF fluticasone propion-salmeterol [Advair HFA] 2 puff inhalation DAILY acetaminophen 500 mg tablet 1,000 mg PO ONCE PRN albuterol sulfate [Ventolin HFA] 90 mcg/actuation Hfa Aerosol Inhaler 2 puff inhalation DISPENSE Qty: 0 0RF Discharge Instructions Instructions: Low Back Pain ED Additional Instructions: Take the Valium as needed for pain, this is addictive so only take the medicine as needed Do not combine with any alcohol or operate your vehicle for 8 hours after taking this medicine Take the prednisone as prescribed\ notified to have blood pressure rechecked by pcp Please return should you have fever, chills, changes in bowel or bladder, or should any new concerns arise Referrals: Lucy Courntey [Primary Care Provider] - 1 day Discharge Data Discharge Date/Time-TO BE ENTERED AT DEPARTURE: 04/29/25 12:05 HPI General Date/Time Provider Initiated Documentation: 04/29/25 11:01 . HPI Narrative: 54-year-old female with history of lumbar spine surgery and secondary herniated disk presents with back pain after twisting injury on Tuesday. Pain radiates down right lower extremity, consistent with prior episodes. No pain for a year in similar distribution. No changes to bowel or bladder function, sensation changes, history of illicit drug use, fever, chills, abdominal pain, nausea, or vomiting. Related Data Home Medications ?Medication ?Instructions ?Recorded ?Confirmed topiramate 100 mg tablet (Topamax) 100 mg PO BID 12/26/20 04/29/25 montelukast 10 mg tablet 10 mg PO DAILY 05/18/21 04/29/25 umeclidinium 62.5 mcg/actuation 1 inh inhalation DAILY 05/18/21 04/29/25 blister powder for inhalation (Incruse Ellipta) dexlansoprazole 30 mg 30 mg PO DAILY #30 caps 03/14/23 04/29/25 capsule,biphase delayed release (Dexilant) fluticasone propion-salmeterol 2 puff inhalation DAILY 06/13/24 04/29/25 ibuprofen 600 mg tablet 600 mg PO TID PRN pain #90 tabs 06/13/24 04/29/25 albuterol sulfate 90 mcg/actuation 2 puff inhalation DISPENSE #0 grams 11/21/24 04/29/25 aerosol inhaler (Ventolin HFA) tizanidine 2 mg tablet 2 mg PO Q6H PRN 12/11/24 04/29/25 rimegepant 75 mg disintegrating 75 mg PO ONCE PRN 12/25/24 04/29/25 tablet (Nurtec ODT) ketoconazole 2 % topical cream 1 applic topical DAILY #120 grams 01/10/25 04/29/25 sucralfate 1 gram tablet (Carafate) 1 g PO QACHS PRN 01/10/25 04/29/25 acetaminophen 500 mg tablet 1,000 mg PO ONCE PRN 04/29/25 04/29/25 diazepam 5 mg tablet (Valium) 5 mg PO BID PRN #10 tabs 04/29/25 prednisone 20 mg tablet 40 mg (2 x 20 mg) PO ONCE #10 tabs 04/29/25 Previous Rx's ?Medication ?Instructions ?Recorded dexlansoprazole 30 mg 30 mg PO DAILY #30 caps 03/14/23 capsule,biphase delayed release (Dexilant) ibuprofen 600 mg tablet 600 mg PO TID PRN pain #90 tabs 06/13/24 albuterol sulfate 90 mcg/actuation 2 puff inhalation DISPENSE #0 grams 11/21/24 aerosol inhaler (Ventolin HFA) ketoconazole 2 % topical cream 1 applic topical DAILY #120 grams 01/10/25 diazepam 5 mg tablet (Valium) 5 mg PO BID PRN #10 tabs 04/29/25 prednisone 20 mg tablet 40 mg (2 x 20 mg) PO ONCE #10 tabs 04/29/25 Allergies Allergy/AdvReac Type Severity Reaction Status Date / Time adhesive Allergy Intermediate gets red Verified 04/29/25 10:41 and welts up codeine Allergy Intermediate Itching Verified 04/29/25 10:41 oxycodone HCl (From Percocet) Allergy Intermediate Anaphylaxsi Verified 04/29/25 10:41 s morphine Allergy Itching Verified 04/29/25 10:41 cyclobenzaprine (From AdvReac Headache Verified 04/29/25 10:41 Flexeril) General Stated Complaint: Nk/Back Pain CRISTI: 4 Exam Narrative Exam Narrative: Appearance: Alert and oriented. Vital signs: Within normal limits. HEENT: Within normal limits. Respiratory: Within normal limits. Cardiovascular: Distal pulses intact in all extremities. Gastrointestinal: No abdominal or flank tenderness. Back, Musculoskeletal: Reproducible tenderness on paraspinal muscles in lumbar spine. Extremities: Ambulatory with antalgic gait. Skin: Warm and dry, no rash. Neurological: Positive straight leg raise on right. Strength and sensation intact distally. Negative Babinski. DTRs intact in bilateral lower extremities. Course Vital Signs Vital signs: Vital Signs Temperature 36.6 C 04/29/25 10:38 Pulse 79 04/29/25 10:38 Respiratory Rate 16 04/29/25 10:38 Blood Pressure 136/89 04/29/25 10:38 Pulse Oximetry 98 04/29/25 10:38 Temperature 36.6 C 04/29/25 10:38 Temperature Source Oral 04/29/25 10:38 Pulse 66 04/29/25 12:01 Pulse Rhythm Regular 04/29/25 12:01 Pulse Strength Normal 04/29/25 12:01 Respiratory Rate 18 04/29/25 12:01 Respiratory Effort Normal, Non-Labored 04/29/25 12:01 Respiratory Depth Normal 04/29/25 12:01 Respiratory Pattern Normal 04/29/25 12:01 Blood Pressure 155/113 H 04/29/25 12:01 Blood Pressure Mean 127 04/29/25 12:01 Blood Pressure Position Sitting 04/29/25 12:01 Pulse Oximetry 99 04/29/25 12:01 Oxygen Delivery Method Room Air 04/29/25 10:38 Oxygen Flow Rate 0 04/29/25 10:38 Pain Level 10 04/29/25 10:38 Medical Decision Making Initial Assessment: 54-year-old female with history of lumbar spine surgery presents with back pain radiating down right lower extremity after twisting injury. No changes to bowel or bladder function, sensation changes, abdominal pain, nausea, or vomiting. ED Course: - Reproducible tenderness on paraspinal muscles in lumbar spine - Positive straight leg raise on right - Intact strength and sensation distally - Ambulatory with antalgic gait - No findings consistent with cauda equina syndrome - No indication for emergent MRI - Low suspicion for UTI - Provided Valium and Toradol, resulting in symptomatic improvement - Prednisone taper prescribed - Advised to use prednisone and Valium sparingly for musculoskeletal pain - Appointment on 05/19/2025 at 0000 hours with [facility], encouraged to keep regardless of pain status - Deemed stable for discharge home - Return precautions reviewed and understood - No indication for imaging as no significant trauma noted Final Assessment: Patient's back pain improved with Valium and Toradol. No findings consistent with cauda equina syndrome or significant trauma. Prednisone taper prescribed. Patient stable for discharge. Clinical Impression: - Back pain Disposition: - Discharge home - Follow-Up: Appointment on 05/19/2025 at 0000 hours with [facility] MDM Components Evaluation: - Number of Differential Diagnoses or Management Options: Low suspicion for UTI - Amount and Complexity of Data Reviewed: PDMP reviewed - Risk of Complication and Morbidity or Mortality: Low risk based on current assessment and treatment plan Quality:SDOH Health Related Social Needs: No Data to Display PFSH All Active Problems (Updated 04/29/25 @ 11:56 by ANTONINO Srivastava) Lumbar back pain (Acute) Onychomycosis (Acute) Peroneal tendinitis, left leg (Acute) Erosive esophagitis (Acute) Family history of gallbladder disease in sister (Acute) Postprandial RUQ pain (Acute) 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 (Acute) COPD (chronic obstructive pulmonary disease) with acute bronchitis (Acute) Headache (Acute) Contact dermatitis (Acute) Migraine (Chronic) GERD with esophagitis (Acute) Duodenitis (Acute) Chronic erosive gastritis (Acute) Esophagitis, [place] grade A (Acute) Gross hematuria (Acute) Renal cyst (Acute) Papanicolaou smear for cervical cancer screening (Acute) Abdominal pain (Acute) Left sciatic notch pain (Acute) Left buttock pain (Acute) Osteoarthritis of left hip joint due to dysplasia (Acute) Atypical chest pain (Acute) Pain in knee region after total knee replacement (Acute) Effusion, left knee (Acute) Chronic low back pain (Acute) Lumbar degenerative disc disease (Acute) Chronic headache (Acute) Migraine headache without aura (Acute) Migraine headache with aura (Acute) Atypical migraine (Acute) Tobacco abuse (Acute) Thyroid nodule (Acute) Diplopia (Acute) Vertigo (Chronic) GERD (gastroesophageal reflux disease) (Chronic) Medical History Family history of breast cancer Hidradenitis suppurativa Dyspepsia Arthralgia Malaise and fatigue Prediabetes Tobacco use TIA (transient ischemic attack) 06/15-per pt. no residual deficits and has not been required to f/u with neuro Tear of medial meniscus of left knee Aspiration: 04/09/2019; 02/05/19 Depo-Medrol injection: 04/09/2019; 02/05/19 Left lateral epicondylitis s/p debridement 11/30/18 Tendinitis of both rotator cuffs (06/30/18) Asthma Obese Cigarette smoker Intertrigo Syncope Hyperthyroidism Migraine Depression Chronic pain Postmenopausal bleeding resolved Thyroid nodule Family history of colon cancer PTSD (post-traumatic stress disorder) Obstructive sleep apnea No CPAP at this time Surgical History History of total right knee replacement (TKR) 2013 [facility] History of esophagogastroduodenoscopy (EGD) (~02/09/21) History of back surgery lower back, 07/2020 History of total left knee replacement (TKR) (11/14/19) Dr. Brunson S/P left knee arthroscopy partial medial menisectomy and trochlear chondroplasty DOS: 05/17/19 Aspiration/Injection: 06/15/19 Status post left rotator cuff repair DOS: 11/30/2018 Dr. Brunson corticosteroid injection: 02/21/19 Replacement of total knee joint R Rotator Cuff Repair 2x on R, 1 x on L, pt report 2 on the left side EGD - [facility] (02/14/18) Colonoscopy - [facility] (02/14/18) Family History Father Rheumatoid arthritis Brother Rheumatoid arthritis Social History Smoking/Tobacco Use Status: Current-Occasional Tobacco Type: cigarettes Tobacco: How many years used: 25 Smoking risk assessment performed?: Yes Alcohol Intake: current Alcohol Intake frequency: holidays/special occasions only Substance use type: marijuana Housing: house Current gender identity: female Do you feel safe at home: Yes Do you feel safe in your relationship?: Yes
== END 2025-04-29 12:05 | disposition home or self-care (01) ==
PROVIDERS: Emergency Provider Physician Assistant; PCP Nurse Practitioner Family
DX: M54.50 Low back pain, unspecified (principal); F17.210 Nicotine dependence, cigarettes, uncomplicated; Z86.73 Personal history of transient ischemic attack (TIA), and cerebral infarction without residual deficits
CPT/HCPCS: 96372; 99284; 99283; J1885; J3360

== ENCOUNTER 2025-08-09 16:40 | Emergency (ER) | payer MEDICARE, SELFPAY ==
[2025-08-09] VITALS (16 sets, daily range): BP systolic 144–180; BP diastolic 85–131; PULSE 77–91; RESP 14–25; TEMP 36.6; O2SAT 95–98
--- NOTE | 2025-08-09 16:30 | RT.EKG_ITS ---
APPROVED REPORT Exam: Resting ECG Reason for Exam: SOB Patient Location: E HR:86 bpm ECG Measurements Heart Rate 86 AXIS GA 158 P 64 QRSd 85 QRS 56 QT 341 T 36 QTc 409 Conclusion Sinus rhythm...normal P axis, V-rate 60- 99 Low voltage, precordial leads...precordial leads <1.0mV
--- NOTE | 2025-08-09 16:53 | W.ED.GENAD ---
Discharge Plan Disposition Patient Disposition: Home Condition: Stable Discharge Details Clinical Impression: Upper back pain, Chest pain Primary Care Provider: Lucy Courtney ED Provider: Akira Guerra Home Meds and New Rx's Prescriptions: New diazepam [Valium] 5 mg tablet 5 mg PO BID PRN (Reason: muscle spasm) Qty: 10 0RF lidocaine 5 % ointment 1 applic topical DAILY PRN (Reason: pain) Qty: 30 0RF Continued topiramate [Topamax] 100 mg tablet 100 mg PO BID sucralfate [Carafate] 1 gram tablet 1 g PO QACHS PRN ketoconazole 2 % cream 1 applic topical DAILY Qty: 120 6RF Rx Instructions: Apply to toenails once daily Nurtec ODT 75 mg tablet,disintegrating 75 mg PO ONCE PRN Rx Instructions: as a single dose dexlansoprazole [Dexilant] 30 mg capsule,biphase delayed releas 30 mg PO DAILY Qty: 30 12RF Incruse Ellipta 62.5 mcg/actuation blister with device 1 inh INHALATION DAILY Patient Comments: INHALE ONE PUFF BY MOUTH EVERY DAY montelukast 10 mg tablet 10 mg PO DAILY Patient Comments: TAKE ONE TABLET BY MOUTH EVERY DAY ibuprofen 600 mg tablet 600 mg PO TID PRN (Reason: pain) Qty: 90 0RF fluticasone propion-salmeterol [Advair HFA] 2 puff inhalation DAILY acetaminophen 500 mg tablet 1,000 mg PO ONCE PRN albuterol sulfate [Ventolin HFA] 90 mcg/actuation Hfa Aerosol Inhaler 2 puff inhalation DISPENSE Qty: 0 0RF Discharge Instructions Additional Instructions: Your lab work and CAT scan did not show any concerning findings at this time. Follow-up with your primary care provider if not improving this week. You can take 1000 mg of acetaminophen and 600 mg of ibuprofen every 6 hours as needed.Return to the emergency department for reevaluation if you feel more ill or have new symptoms such as high fevers or persistent vomiting Stand Alone Forms: Work Release HPI General Date/Time Provider Initiated Documentation: 08/09/25 16:41. Limitations to Documentation: no limitations. Information obtained by: patient. History of Present Illness 55 year old F presents to the emergency department with the chief complaint of chest and upper back pain, described as moderate, Quality is described as sharp, and is localized to the chest and back. Patient started experiencing this hour(s) (5) and it has been constant. No relieving factors improve symptom(s), No exacerbating factors reported . Patient notes no other symptoms.. Patient did receive the following treatments prior to arrival, none Related Data Home Medications ?Medication ?Instructions ?Recorded ?Confirmed topiramate 100 mg tablet (Topamax) 100 mg PO BID 12/26/20 08/09/25 montelukast 10 mg tablet 10 mg PO DAILY 05/18/21 08/09/25 umeclidinium 62.5 mcg/actuation 1 inh inhalation DAILY 05/18/21 08/09/25 blister powder for inhalation (Incruse Ellipta) dexlansoprazole 30 mg 30 mg PO DAILY #30 caps 03/14/23 08/09/25 capsule,biphase delayed release (Dexilant) fluticasone propion-salmeterol 2 puff inhalation DAILY 06/13/24 08/09/25 ibuprofen 600 mg tablet 600 mg PO TID PRN pain #90 tabs 06/13/24 08/09/25 albuterol sulfate 90 mcg/actuation 2 puff inhalation DISPENSE #0 grams 11/21/24 08/09/25 aerosol inhaler (Ventolin HFA) rimegepant 75 mg disintegrating 75 mg PO ONCE PRN 12/25/24 08/09/25 tablet (Nurtec ODT) ketoconazole 2 % topical cream 1 applic topical DAILY #120 grams 01/10/25 08/09/25 sucralfate 1 gram tablet (Carafate) 1 g PO QACHS PRN 01/10/25 08/09/25 acetaminophen 500 mg tablet 1,000 mg PO ONCE PRN 04/29/25 08/09/25 diazepam 5 mg tablet (Valium) 5 mg PO BID PRN muscle spasm #10 08/09/25 tabs lidocaine 5 % topical ointment 1 applic topical DAILY PRN pain 08/09/25 #30 grams Previous Rx's ?Medication ?Instructions ?Recorded dexlansoprazole 30 mg 30 mg PO DAILY #30 caps 03/14/23 capsule,biphase delayed release (Dexilant) ibuprofen 600 mg tablet 600 mg PO TID PRN pain #90 tabs 06/13/24 albuterol sulfate 90 mcg/actuation 2 puff inhalation DISPENSE #0 grams 11/21/24 aerosol inhaler (Ventolin HFA) ketoconazole 2 % topical cream 1 applic topical DAILY #120 grams 01/10/25 diazepam 5 mg tablet (Valium) 5 mg PO BID PRN muscle spasm #10 08/09/25 tabs lidocaine 5 % topical ointment 1 applic topical DAILY PRN pain 08/09/25 #30 grams Allergies Allergy/AdvReac Type Severity Reaction Status Date / Time adhesive Allergy Intermediate gets red Verified 08/09/25 16:46 and welts up codeine Allergy Intermediate Itching Verified 08/09/25 16:46 oxycodone HCl (From Percocet) Allergy Intermediate Anaphylaxsi Verified 08/09/25 16:46 s morphine Allergy Itching Verified 08/09/25 16:46 cyclobenzaprine (From AdvReac Headache Verified 08/09/25 16:46 Flexeril) General Stated Complaint: SOB CRISTI: 3 Review of Systems All systems reviewed & are unremarkable except as noted in HPI and below Constitutional Constitutional: Denies chills, Denies fever(s) and Denies weakness Cardiovascular Cardiovascular: Reports chest pain and Denies dyspnea Respiratory Respiratory: Denies cough and Denies dyspnea Gastrointestinal Gastrointestinal: Denies abdominal pain, Denies nausea and Denies vomiting Musculoskeletal Musculoskeletal: Reports back pain Neurologic Neurologic: Denies weakness Exam Const General: no acute distress Orientation: alert [facility] Head: normal to inspection Ears: external ears normal General nose exam: external nose normal Mouth: moist mucous membranes Eyes General: appearance normal, both eyes and all related structures Neck Neck: normal visual inspection Resp Effort & Inspection: normal respiratory effort and able to speak in complete sentences Auscultation: clear to auscultation bilaterally Cardio Jugular venous pressure: no JVD Rate: regular rate Skin General skin exam: no rashes or lesions noted Neuro General: patient alert and patient oriented x3 Extrem General: normal to inspection Psych Mental Status: mental status grossly normal Course Vital Signs Vital signs: Vital Signs Temperature 36.6 C 08/09/25 16:43 Pulse 91 H 08/09/25 16:43 Respiratory Rate 16 08/09/25 16:43 Blood Pressure 180/131 H 08/09/25 16:43 Pulse Oximetry 98 08/09/25 16:43 Temperature 36.6 C 09/12/25 16:46 Temperature Source Tympanic 08/09/25 16:46 Pulse 91 H 08/09/25 16:46 Respiratory Rate 16 08/09/25 16:46 Blood Pressure 180/131 H 08/09/25 16:46 Pulse Oximetry 98 08/09/25 16:46 Pain Level 8 08/09/25 16:46 Medical Decision Making 55-year-old female with a history of PTSD, migraines, smoker who comes in with 5 hours of chest and upper back pain. She says that when she takes a deep breath makes the pain worse. She denies any fevers, chills, cough. No abdominal pain or vomiting. She is stable on arrival with clear speech. She has reproducible tenderness to the upper back without visible palpable deformities. She has clear lung sounds, no JVD, no leg swelling or calf tenderness. Equal peripheral pulses. I suspect this could be musculoskeletal back pain but given the pleuritic nature we will proceed with CBC, CMP troponins, and also will check a chest x-ray and if this is negative for pneumothorax proceed with a CTA to evaluate for PE. Labs including delta troponin negative as is the CTA. Patient is stable. I suspect musculoskeletal back pain. She is stable for discharge and will follow-up with her PCP, return precautions given Differential Diagnosis Differential Diagnosis: Pneumothorax, PE, musculoskeletal back pain Medical Records Medical records reviewed: Yes I reviewed the patient's medical records. Lab Data Lab results reviewed: Yes I reviewed the patient's lab results. ECG Data Attestation: I personally reviewed and interpreted this ECG (s) as follows: Prior ECG tracings: available for review Interpretation: sinus rate of 86 no stemi PFSH All Active Problems (Updated 08/09/25 @ 19:25 by Akira Guerra MD) Chest pain (Acute) Upper back pain (Acute) Obstructive sleep apnea (Chronic) No CPAP at this time PTSD (post-traumatic stress disorder) (Acute) Hyperthyroidism (Chronic) Tobacco use (Acute) Arthralgia (Acute) Prediabetes (Acute) Onychomycosis (Acute) Peroneal tendinitis, left leg (Acute) Erosive esophagitis (Acute) Family history of gallbladder disease in sister (Acute) Postprandial RUQ pain (Acute) 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 (Acute) COPD (chronic obstructive pulmonary disease) with acute bronchitis (Acute) Headache (Acute) Contact dermatitis (Acute) Migraine (Chronic) GERD with esophagitis (Acute) Duodenitis (Acute) Chronic erosive gastritis (Acute) Esophagitis, Manderson grade A (Acute) Gross hematuria (Acute) Renal cyst (Acute) Papanicolaou smear for cervical cancer screening (Acute) Abdominal pain (Acute) Left sciatic notch pain (Acute) Left buttock pain (Acute) Osteoarthritis of left hip joint due to dysplasia (Acute) Atypical chest pain (Acute) Pain in knee region after total knee replacement (Acute) Effusion, left knee (Acute) Chronic low back pain (Acute) Lumbar degenerative disc disease (Acute) Chronic headache (Acute) Migraine headache without aura (Acute) Migraine headache with aura (Acute) Atypical migraine (Acute) Tobacco abuse (Acute) Thyroid nodule (Acute) Diplopia (Acute) Vertigo (Chronic) GERD (gastroesophageal reflux disease) (Chronic) Medical History Family history of breast cancer Hidradenitis suppurativa Dyspepsia Arthralgia Malaise and fatigue Prediabetes Tobacco use TIA (transient ischemic attack) 06/15-per pt. no residual deficits and has not been required to f/u with neuro Tear of medial meniscus of left knee Aspiration: 04/09/2019; 02/05/19 Depo-Medrol injection: 04/09/2019; 02/05/19 Left lateral epicondylitis s/p debridement 11/30/18 Tendinitis of both rotator cuffs (06/30/18) Asthma Obese Cigarette smoker Intertrigo Syncope Hyperthyroidism Migraine Depression Chronic pain Postmenopausal bleeding resolved Thyroid nodule Family history of colon cancer PTSD (post-traumatic stress disorder) Obstructive sleep apnea No CPAP at this time Surgical History History of total right knee replacement (TKR) 2013 [facility] History of esophagogastroduodenoscopy (EGD) (~02/09/21) History of back surgery lower back, 07/2020 History of total left knee replacement (TKR) (11/14/19) Dr. Brunson S/P left knee arthroscopy partial medial menisectomy and trochlear chondroplasty DOS: 05/17/19 Aspiration/Injection: 06/15/19 Status post left rotator cuff repair DOS: 11/30/2018 Dr. Brunson corticosteroid injection: 02/21/19 Replacement of total knee joint R Rotator Cuff Repair 2x on R, 1 x on L, pt report 2 on the left side EGD - [facility] (02/14/18) Colonoscopy - [facility] (02/14/18) Family History Father Rheumatoid arthritis Brother Rheumatoid arthritis Social History Smoking/Tobacco Use Status: Current-Occasional Tobacco Type: cigarettes Tobacco: How many years used: 25 Smoking risk assessment performed?: Yes Alcohol Intake: current Alcohol Intake frequency: holidays/special occasions only Drug use: Occasionally Substance use type: marijuana Housing: house Current gender identity: female Do you feel safe at home: Yes Do you feel safe in your relationship?: Yes
--- NOTE | 2025-08-09 17:00 | DI.CT_ITS ---
Exam(s) CT CHEST PE CTA EXAM: CT CHEST PE CTA CLINICAL HISTORY: pleuritic chest and back pain. TECHNIQUE: Imaging Protocol: Axial CT angiography was performed with multi- slice acquisition and multi-planar reconstructions as well as axial, coronal and sagittal MIP reconstructions. Computer aided detection (CAD) was utilized. CONTRAST MATERIAL: Intravenous: Omnipaque 350 Contrast volume:100 ml COMPARISON: CT CT CHEST LUNG CANCER SCREEN from 02/27/2024 FINDINGS: Pulmonary Arteries: No evidence of filling defect to suggest pulmonary emboli. Mediastinum and Margareth: No dominant adenopathy or fluid collection. Pulmonary parenchyma: No consolidation or dominant measurable mass. Pleura: No effusion or pneumothorax. Heart: The heart is not dilated. No coronary artery calcifications are seen. Aorta: Thoracic aorta non-dilated. No dissection. Upper abdomen: No acute findings. Bones: Unremarkable for age. Tubes, Catheters, and Lines: None Soft tissues: Unremarkable. IMPRESSION: No evidence of pulmonary embolism or other acute abnormality. RADIATION DOSE DELIVERED: Total DLP DATA REPOSITORY: All CT scans at this facility are submitted to the National Radiology Data Registry (NRDR) Dose Index Registry (DIR) with the [employer] (A[employer]). RADIATION OPTIMIZATION: All CT scans at this facility use at least one of these dose optimization techniques: automated exposure control; mA and/or kV adjustment per patient size (includes targeted exams where dose is matched to clinical indication); or iterative reconstruction.
[2025-08-09 17:21] LABS: BE (Venous) 2 mmol/L (-2-3); HCO3 (Venous) 27 mmol/L (23-28); O2 Sat (Venous) 81 %; TCO2 (Venous) 24 mmol/L (24-29); pCO2 (Venous) 43 mmHg (41-51); pO2 (Venous) 44 mmHg
[2025-08-09 17:24] LABS: Abs Immature Grans 0.02 10^3/uL (0.0-0.06); HCT 44.8 % (36.0-46.0); HGB 14.5 g/dL (11.2-15.7); Immature Grans % 0.2 %; MCH 28.8 pg (27.0-33.0); MCHC 32.4 % (32.0-36.0); MCV 89 fL (80-95); MPV 9.4 fL (8.0-11.0); Platelet Count 283 10^3/uL (130-400); RBC 5.03 10^6/uL (3.93-5.22); RDW 13.7 % (11.7-14.6); RDW-SD 44.8 fL; WBC 9.29 10^3/uL (4.4-10.8)
[2025-08-09] MEDS: Ketorolac 15 MG/ML VIAL IVP (17:25)
[2025-08-09] MEDS: Normal Saline Flush 10 ML SYR IVP ×2 (17:26→17:56)
[2025-08-09 17:36] LABS: INR 1.1 (0.9-1.1); PTT Activated 26.3 sec (20.6-30.2); Prothrombin Time 10.9 sec (9.1-11.1)
[2025-08-09 17:44] LABS: ALT 28 U/L (14-59); AST 21 U/L (15-37); Albumin 3.5 g/dL (3.4-5.0); Alkaline Phosphatase 74 U/L (46-116); Anion Gap 6.5 mmol/L (3-11); BUN 12 mg/dL (7-18); Bilirubin, Total 0.9 mg/dL (0.2-1.0); CO2 28.5 mmol/L (21.0-32.0); Calcium 9.5 mg/dL (8.5-10.1); Chloride 104 mmol/L (98-107); Estimated GFR 75.50 (mL/min/1.73m2); Glucose 102 mg/dL (74-106); NT-proBNP 74 pg/mL (<300); Potassium 3.5 mmol/L (3.5-5.1); Sodium 139 mmol/L (136-145); Total Protein 7.3 g/dL (6.4-8.2); Troponin I 4 ng/L (<or=51)
[2025-08-09 17:47] LABS: D-Dimer 624 ng/mlFEU (<500)
[2025-08-09] MEDS: Normal Saline - Diluent 50 ML VIAL IJ (17:56)
[2025-08-09] MEDS: Omnipaque 350 MG/ML 100 ML BTL IJ (17:57)
[2025-08-09] MEDS: ACETAMINOPHEN 1,000 MG/100 ML BAG 400 MG IVPB (18:42)
[2025-08-09 18:43] LABS: Troponin I 4 ng/L (<or=51)
[2025-08-09] MEDS: diazePAM 5 MG TAB PO (19:40)
== END 2025-08-09 19:46 | disposition home or self-care (01) ==
PROVIDERS: Emergency Provider Emergency Medicine; PCP Nurse Practitioner Family
DX: R07.9 Chest pain, unspecified (principal); M54.6 Pain in thoracic spine
CPT/HCPCS: 36415; 71275; 80053; 82805; 93005; 96365; 96375; 99285; 83880; 84484; 85025; 85379; 85610; 85730; 93010; 99284; J0131; J1885; J3490

== ENCOUNTER 2025-08-19 08:01 | Outpatient (CLI) | payer MEDICARE, SELFPAY | END 2025-08-19 08:02 | disposition home or self-care (01) | PROVIDERS: PCP Nurse Practitioner Family; Visit Provider Nurse Practitioner Family | DX: R07.9 Chest pain, unspecified (principal) | CPT/HCPCS: 93246 ==

== ENCOUNTER 2025-08-21 13:24 | Emergency (ER) | payer MEDICARE, SELFPAY ==
[2025-08-21] VITALS (28 sets, daily range): BP systolic 133–179; BP diastolic 63–105; PULSE 75–89; RESP 12–29; TEMP 36.6; O2SAT 91–100
--- NOTE | 2025-08-21 13:15 | RT.EKG_ITS ---
APPROVED REPORT Exam: Resting ECG Reason for Exam: Chest Pain Patient Location: E HR:86 bpm ECG Measurements Heart Rate 86 AXIS MS 183 P 42 QRSd 81 QRS 28 QT 352 T 16 QTc 421 Conclusion Sinus rhythm...normal P axis, V-rate 60- 99 Physician: no stemi
--- NOTE | 2025-08-21 13:45 | DI.RAD_ITS ---
Exam(s) XR PORTABLE CHEST AP EXAM: XR PORTABLE CHEST AP CLINICAL HISTORY: left chest pain TECHNIQUE: 2D digital imaging was performed. COMPARISON: CT CT CHEST PE CTA from 08/09/2025 FINDINGS: There overlying monitoring leads. There is electronic device positioned over the left lung apex. The exam is under penetrated. LUNGS: Grossly clear. No focal area of consolidation no pleural abnormality seen. HEART: Normal size. AORTA: Normal diameter. BONES: Unremarkable for age. Soft tissues: Unremarkable. IMPRESSION: Limited exam. No acute findings. DATA REPOSITORY: RADIATION DOSE DELIVERED:
--- NOTE | 2025-08-21 13:49 | W.ED.GENAD ---
Discharge Plan Disposition Patient Disposition: Home Condition: Good Discharge Details Clinical Impression: Pancreatitis, Acute pancreatitis Primary Care Provider: Lucy Courtney ED Provider: Goran Coy Home Meds and New Rx's Prescriptions: New ondansetron 4 mg tablet,disintegrating 4 mg PO Q8H Qty: 20 0RF No Action topiramate [Topamax] 100 mg tablet 100 mg PO BID sucralfate [Carafate] 1 gram tablet 1 g PO QACHS PRN ketoconazole 2 % cream 1 applic topical DAILY Qty: 120 6RF Rx Instructions: Apply to toenails once daily Nurtec ODT 75 mg tablet,disintegrating 75 mg PO ONCE PRN Rx Instructions: as a single dose dexlansoprazole [Dexilant] 30 mg capsule,biphase delayed releas 30 mg PO DAILY Qty: 30 12RF Incruse Ellipta 62.5 mcg/actuation blister with device 1 inh INHALATION DAILY Patient Comments: INHALE ONE PUFF BY MOUTH EVERY DAY montelukast 10 mg tablet 10 mg PO DAILY Patient Comments: TAKE ONE TABLET BY MOUTH EVERY DAY ibuprofen 600 mg tablet 600 mg PO TID PRN (Reason: pain) Qty: 90 0RF fluticasone propion-salmeterol [Advair HFA] 2 puff inhalation DAILY acetaminophen 500 mg tablet 1,000 mg PO ONCE PRN albuterol sulfate [Ventolin HFA] 90 mcg/actuation Hfa Aerosol Inhaler 2 puff inhalation DISPENSE Qty: 0 0RF diazepam [Valium] 5 mg tablet 5 mg PO BID PRN (Reason: muscle spasm) Qty: 10 0RF lidocaine 5 % ointment 1 applic topical DAILY PRN (Reason: pain) Qty: 30 0RF Discharge Instructions Instructions: Acute pancreatitis Additional Instructions: At this time your workup shows evidence to suggest acute pancreatitis. Please stick with a liquid diet for the next 1 to 2 weeks, avoid any greasy or fatty foods. Take the Zofran as needed for nausea. If you notice any worsening of your symptoms, or any new symptoms such as vomiting, diarrhea, fever, chills, shortness of breath, chest pain, numbness, weakness, or fainting , please return immediately to the emergency department for reevaluation. Please follow up with your primary care provider as soon as possible for reassessment and reevaluation. As always, it was a pleasure participating in your medical care today. Referrals: Lucy Courtney [Primary Care Provider, Medicine] HPI General Date/Time Provider Initiated Documentation: 08/21/25 13:33. HPI Narrative: 52-year-old female with a past medical history of previous spinal surgery in the lower lumbar spine secondary to discopathy, COPD, gastritis, high cholesterol, migraines, and a history of left buttock and left sciatic pain, who presents today for evaluation of epigastric and chest pain. Patient was here and assessed on 08/09/2025 for similar symptoms. At that time she had a very thorough workup performed by Dr. Guerra which was negative for cardiac troponins, negative CT angiogram, with no evidence of PE. She went home and has had persistent on and off epigastric/chest pain. She has had notably diminished appetite over the last few days. Yesterday she had a few episodes of vomiting but that is improved today. She describes the pain as achy and gnawing and pressure-like in nature. She has some associated pleuritic component. She is nauseous but has not vomited today. She denies fever or chills. She denies excessive alcohol use. She denies any numbness or tingling or diarrhea. No tearing or ripping sensation. No other complaints at this time. Related Data Home Medications ?Medication ?Instructions ?Recorded ?Confirmed topiramate 100 mg tablet (Topamax) 100 mg PO BID 12/26/20 08/21/25 montelukast 10 mg tablet 10 mg PO DAILY 05/18/21 08/21/25 umeclidinium 62.5 mcg/actuation 1 inh inhalation DAILY 05/18/21 08/21/25 blister powder for inhalation (Incruse Ellipta) dexlansoprazole 30 mg 30 mg PO DAILY #30 caps 03/14/23 08/21/25 capsule,biphase delayed release (Dexilant) fluticasone propion-salmeterol 2 puff inhalation DAILY 06/13/24 08/21/25 ibuprofen 600 mg tablet 600 mg PO TID PRN pain #90 tabs 06/13/24 08/21/25 albuterol sulfate 90 mcg/actuation 2 puff inhalation DISPENSE #0 grams 11/21/24 08/21/25 aerosol inhaler (Ventolin HFA) rimegepant 75 mg disintegrating 75 mg PO ONCE PRN 12/25/24 08/21/25 tablet (Nurtec ODT) ketoconazole 2 % topical cream 1 applic topical DAILY #120 grams 01/10/25 08/21/25 sucralfate 1 gram tablet (Carafate) 1 g PO QACHS PRN 01/10/25 08/21/25 acetaminophen 500 mg tablet 1,000 mg PO ONCE PRN 04/29/25 08/21/25 diazepam 5 mg tablet (Valium) 5 mg PO BID PRN muscle spasm #10 08/09/25 08/21/25 tabs lidocaine 5 % topical ointment 1 applic topical DAILY PRN pain 08/09/25 08/21/25 #30 grams ondansetron 4 mg disintegrating 4 mg PO Q8H #20 tabs 08/21/25 tablet Previous Rx's ?Medication ?Instructions ?Recorded dexlansoprazole 30 mg 30 mg PO DAILY #30 caps 03/14/23 capsule,biphase delayed release (Dexilant) ibuprofen 600 mg tablet 600 mg PO TID PRN pain #90 tabs 06/13/24 albuterol sulfate 90 mcg/actuation 2 puff inhalation DISPENSE #0 grams 11/21/24 aerosol inhaler (Ventolin HFA) ketoconazole 2 % topical cream 1 applic topical DAILY #120 grams 01/10/25 diazepam 5 mg tablet (Valium) 5 mg PO BID PRN muscle spasm #10 08/09/25 tabs lidocaine 5 % topical ointment 1 applic topical DAILY PRN pain 08/09/25 #30 grams ondansetron 4 mg disintegrating 4 mg PO Q8H #20 tabs 08/21/25 tablet Allergies Allergy/AdvReac Type Severity Reaction Status Date / Time adhesive Allergy Intermediate gets red Verified 08/21/25 13:32 and welts up codeine Allergy Intermediate Itching Verified 08/21/25 13:32 oxycodone HCl (From Percocet) Allergy Intermediate Anaphylaxsi Verified 08/21/25 13:32 s morphine Allergy Itching Verified 08/21/25 13:32 cyclobenzaprine (From AdvReac Headache Verified 08/21/25 13:32 Flexeril) General Stated Complaint: Chest Pain CRISTI: 3 Exam Narrative Exam Narrative: 1.Const: Well-nourished, Well-developed, appearing stated age 2.Eyes: PERRL, no conjunctival injection, and symmetrical lids. 3.ENT: Atraumatic external nose and ears. Moist MM. Neck: Symmetric, trachea midline, No thyromegaly. 4.CVS: +S1/S2, Peripheral pulses 2+ and equal in all extremities. Brisk capillary refill in all extremities. 5.RESP: Unlabored respiratory effort. Clear to auscultation bilaterally. No wheezes rales or rhonchi 6.GI: Soft, nondistended. Reproducible epigastric tenderness. Palpation of the lower sternum also worsens her pain. Negative Sr sign. No pain at McBurney's point. 7.MSK: Normocephalic/Atraumatic, Extremities w/o deformity or ttp No cyanosis or clubbing, Normal movement of all extremities 8.Skin: Warm, Dry. No rashes or lesions. 9.Neuro: auth specialist II-XII grossly intact. Sensation grossly intact, no focal neurologic deficits. 10.Psych: (AAO) x3. Appropriate mood and affect Course Vital Signs Vital signs: Vital Signs Temperature 36.6 C 08/21/25 13:27 Pulse 89 08/21/25 13:27 Respiratory Rate 18 08/21/25 13:27 Blood Pressure 146/63 H 08/21/25 13:27 Pulse Oximetry 100 08/21/25 13:27 Temperature 36.6 C 08/21/25 13:27 Temperature Source Temporal Artery Scan 08/21/25 13:27 Pulse 89 08/21/25 13:27 Respiratory Rate 18 08/21/25 13:27 Blood Pressure 146/63 H 08/21/25 13:27 Pulse Oximetry 100 08/21/25 13:27 Oxygen Delivery Method Room Air 08/21/25 13:27 Oxygen Flow Rate 0 08/21/25 13:27 Pain Level 8 08/21/25 13:27 Medical Decision Making Exam demonstrates reproducible epigastric discomfort, and reproducible lower sternal discomfort.52-year-old female with a past medical history of previous spinal surgery in the lower lumbar spine secondary to discopathy, COPD, gastritis, high cholesterol, migraines, and a history of left buttock and left sciatic pain, who presents today for evaluation of epigastric and chest pain. Patient was here and assessed on 08/09/2025 for similar symptoms. At that time she had a very thorough workup performed by Dr. Guerra which was negative for cardiac troponins, negative CT angiogram, with no evidence of PE. She went home and has had persistent on and off epigastric/chest pain. She has had notably diminished appetite over the last few days. Yesterday she had a few episodes of vomiting but that is improved today. She describes the pain as achy and gnawing and pressure-like in nature. She has some associated pleuritic component. She is nauseous but has not vomited today. She denies fever or chills. She denies excessive alcohol use. She denies any numbness or tingling or diarrhea. No tearing or ripping sensation. No other complaints at this time. Exam demonstrates reproducible epigastric pain, mild lower sternal discomfort is reproducible as well. Symptoms certainly appear musculoskeletal in origin. Previous workup appears quite thorough. Differential includes pancreatitis, no right upper quadrant tenderness to suggest cholecystitis. Symptoms appear unlikely to be cardiac in origin. However because of patient's age and risk factors we will evaluate for this. Will monitor closely and reassess. Will give a GI cocktail. 3:22 PM Laboratory workup has returned, no white count bandemia or left shift. Chest x-ray negative for acute process. VBG normal, and D-dimer is 709, negative per years algorithm. Laboratory workup does show an elevated lipase at 133 which correlates clinically with her symptomatology. Symptoms appear clinically consistent with pancreatitis. Will give a liter of IV fluids. Will give Zofran for home and recommend liquid bland diet. Patient otherwise stable. No evidence of other life-threatening etiology. No evidence to suggest PE, ACS, dissection, or cholecystitis. I have extensively reviewed the treatment plan and discharge instructions with the patient. I have addressed all patient concerns at this time. The patient was made aware of what symptoms to monitor for that would warrant a return to the emergency department. Discussed the plan with the patient, they demonstrate verbal understanding and agreement with our assessment and plan at this time. The documentation in this chart was dictated using [employer] dictation software. Please excuse any dictation errors. 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 (Acute) COPD (chronic obstructive pulmonary disease) with acute bronchitis (Acute) Headache (Acute) Contact dermatitis (Acute) Migraine (Chronic) GERD with esophagitis (Acute) Duodenitis (Acute) Chronic erosive gastritis (Acute) Esophagitis, [place] grade A (Acute) Gross hematuria (Acute) Renal cyst (Acute) Papanicolaou smear for cervical cancer screening (Acute) Abdominal pain (Acute) Left sciatic notch pain (Acute) Left buttock pain (Acute) Osteoarthritis of left hip joint due to dysplasia (Acute) Atypical chest pain (Acute) Pain in knee region after total knee replacement (Acute) Effusion, left knee (Acute) Chronic low back pain (Acute) Lumbar degenerative disc disease (Acute) Chronic headache (Acute) Migraine headache without aura (Acute) Migraine headache with aura (Acute) Atypical migraine (Acute) Tobacco abuse (Acute) Thyroid nodule (Acute) Diplopia (Acute) Vertigo (Chronic) GERD (gastroesophageal reflux disease) (Chronic) Medical History Family history of breast cancer Hidradenitis suppurativa Dyspepsia Arthralgia Malaise and fatigue Prediabetes Tobacco use TIA (transient ischemic attack) 06/15-per pt. no residual deficits and has not been required to f/u with neuro Tear of medial meniscus of left knee Aspiration: 04/09/2019; 02/05/19 Depo-Medrol injection: 04/09/2019; 02/05/19 Left lateral epicondylitis s/p debridement 11/30/18 Tendinitis of both rotator cuffs (06/30/18) Asthma Obese Cigarette smoker Intertrigo Syncope Hyperthyroidism Migraine Depression Chronic pain Postmenopausal bleeding resolved Thyroid nodule Family history of colon cancer PTSD (post-traumatic stress disorder) Obstructive sleep apnea No CPAP at this time Surgical History History of total right knee replacement (TKR) 2013 [facility] History of esophagogastroduodenoscopy (EGD) (~02/09/21) History of back surgery lower back, 07/2020 History of total left knee replacement (TKR) (11/14/19) Dr. Brunson S/P left knee arthroscopy partial medial menisectomy and trochlear chondroplasty DOS: 05/17/19 Aspiration/Injection: 06/15/19 Status post left rotator cuff repair DOS: 11/30/2018 Dr. Brunson corticosteroid injection: 02/21/19 Replacement of total knee joint R Rotator Cuff Repair 2x on R, 1 x on L, pt report 2 on the left side EGD - [facility] (02/14/18) Colonoscopy - [facility] (02/14/18) Family History Father Rheumatoid arthritis Brother Rheumatoid arthritis Social History Smoking/Tobacco Use Status: Current-Occasional Tobacco Type: cigarettes Tobacco: How many years used: 25 Smoking risk assessment performed?: Yes Alcohol Intake: current Alcohol Intake frequency: holidays/special occasions only Drug use: Occasionally Substance use type: marijuana Housing: house Current gender identity: female Do you feel safe at home: Yes Do you feel safe in your relationship?: Yes
[2025-08-21 14:27] LABS: BE (Venous) 1 mmol/L (-2-3); HCO3 (Venous) 27 mmol/L (23-28); O2 Sat (Venous) 68 %; TCO2 (Venous) 24 mmol/L (24-29); pCO2 (Venous) 46 mmHg (41-51); pO2 (Venous) 37 mmHg
[2025-08-21 14:37] LABS: Abs Immature Grans 0.03 10^3/uL (0.0-0.06); HCT 43.7 % (36.0-46.0); HGB 14.0 g/dL (11.2-15.7); Immature Grans % 0.3 %; MCH 28.7 pg (27.0-33.0); MCHC 32.0 % (32.0-36.0); MCV 90 fL (80-95); MPV 9.3 fL (8.0-11.0); Platelet Count 282 10^3/uL (130-400); RBC 4.87 10^6/uL (3.93-5.22); RDW 13.9 % (11.7-14.6); RDW-SD 45.1 fL; WBC 9.56 10^3/uL (4.4-10.8)
--- NOTE | 2025-08-21 14:44 | NUR.NOTE ---
Nursing Note: this nurse to bedside to administer ordered medications. Medications explained to pt, she replied I was here last week, and got these meds, this isn't fucking GERD you assholes, and im not taking those meds, figure out whats going on then we can talk
[2025-08-21 14:55] LABS: INR 1.1 (0.9-1.1); PTT Activated 27.1 sec (20.6-30.2); Prothrombin Time 10.7 sec (9.1-11.1)
[2025-08-21 14:56] LABS: ALT 28 U/L (14-59); AST 16 U/L (15-37); Albumin 3.5 g/dL (3.4-5.0); Alkaline Phosphatase 78 U/L (46-116); Anion Gap 8.2 mmol/L (3-11); BUN 13 mg/dL (7-18); Bilirubin, Total 0.7 mg/dL (0.2-1.0); CO2 27.8 mmol/L (21.0-32.0); Calcium 9.1 mg/dL (8.5-10.1); Chloride 105 mmol/L (98-107); Estimated GFR 59.34 (mL/min/1.73m2); Glucose 100 mg/dL (74-106); Lipase 133 U/L (<78); NT-proBNP 16 pg/mL (<300); Potassium 3.5 mmol/L (3.5-5.1); Sodium 141 mmol/L (136-145); Total Protein 7.5 g/dL (6.4-8.2); Troponin I 4 ng/L (<or=51)
[2025-08-21 15:00] LABS: D-Dimer 709 ng/mlFEU (<500)
[2025-08-21 15:48] LABS: Troponin I 4 ng/L (<or=51)
[2025-08-21] MEDS: Ondansetron O.D.T. 4 MG TABEF, 3 TABS/BTL PO (16:04)
== END 2025-08-21 16:07 | disposition home or self-care (01) ==
PROVIDERS: Emergency Provider Student in an Organized Health Care Education/Training Program; PCP Nurse Practitioner Family
DX: K85.90 Acute pancreatitis without necrosis or infection, unspecified (principal); J44.9 Chronic obstructive pulmonary disease, unspecified; E03.9 Hypothyroidism, unspecified; F17.210 Nicotine dependence, cigarettes, uncomplicated
CPT/HCPCS: 36415; 80053; 82805; 83690; 93005; 99284; 71045; 83880; 84484; 85025; 85379; 85610; 85730; 93010

== ENCOUNTER 2025-09-09 02:05 | Outpatient (CLI) | payer MEDICARE, SELFPAY ==
--- NOTE | 2025-09-19 08:51 | W.CARDEVENT ---
Date of service: 09/19/25 Time of Service: 08:51 Cardiac Event Recorder Referring Provider:: Lucy Courtney Indications:: Other chest pain Cardiac Event Note: This is a cardiac event monitor. Patient was monitored for 8 days and 4 hours Rhythm throughout was sinus with an average heart rate of 92. Minimum was 55, maximum 141 There were very very rare isolated atrial and ventricular ectopic beats There was no atrial fibrillation, no high-grade AV block, no pauses greater than 3 seconds. Reported symptoms correlated to sinus rhythm rate 84
== END 2025-09-09 02:25 ==
LOC: DI 02:05
PROVIDERS: PCP Nurse Practitioner Family; Visit Provider Nurse Practitioner Family
DX: R07.89 Other chest pain (principal)
CPT/HCPCS: 93248

== ENCOUNTER 2025-11-05 18:13 | Emergency (ER) | payer MEDICARE, SELFPAY ==
[2025-11-05] VITALS (23 sets, daily range): BP systolic 86–137; BP diastolic 68–91; PULSE 85–126; RESP 14–26; TEMP 36.9; O2SAT 96–99
--- NOTE | 2025-11-05 18:32 | W.ED.GENAD ---
Discharge Plan Disposition Patient Disposition: Home Condition: Stable Discharge Details Clinical Impression: Cellulitis and abscess of right leg, Hydradenitis Primary Care Provider: Lucy Courtney ED Provider: Tricia Almonte Home Meds and New Rx's Prescriptions: New doxycycline hyclate 100 mg capsule 100 mg PO BID Qty: 11 0RF No Action topiramate [Topamax] 100 mg tablet 100 mg PO BID sucralfate [Carafate] 1 gram tablet 1 g PO QACHS PRN ketoconazole 2 % cream 1 applic topical DAILY Qty: 120 6RF Rx Instructions: Apply to toenails once daily Nurtec ODT 75 mg tablet,disintegrating 75 mg PO ONCE PRN Rx Instructions: as a single dose dexlansoprazole [Dexilant] 30 mg capsule,biphase delayed releas 30 mg PO DAILY Qty: 30 12RF Incruse Ellipta 62.5 mcg/actuation blister with device 1 inh INHALATION DAILY Patient Comments: INHALE ONE PUFF BY MOUTH EVERY DAY montelukast 10 mg tablet 10 mg PO DAILY Patient Comments: TAKE ONE TABLET BY MOUTH EVERY DAY ibuprofen 600 mg tablet 600 mg PO TID PRN (Reason: pain) Qty: 90 0RF fluticasone propion-salmeterol [Advair HFA] 2 puff inhalation DAILY acetaminophen 500 mg tablet 1,000 mg PO ONCE PRN albuterol sulfate [Ventolin HFA] 90 mcg/actuation Hfa Aerosol Inhaler 2 puff inhalation DISPENSE Qty: 0 0RF diazepam [Valium] 5 mg tablet 5 mg PO BID PRN (Reason: muscle spasm) Qty: 10 0RF lidocaine 5 % ointment 1 applic topical DAILY PRN (Reason: pain) Qty: 30 0RF ondansetron 4 mg tablet,disintegrating 4 mg PO Q8H Qty: 20 0RF Discharge Instructions Additional Instructions: Please call [facility] first thing in the morning to schedule follow-up appointment by the end of the week for reassessment. You are being treated with doxycycline for a localized skin infection. Please take the full course as prescribed. Do not take within 1 hour of calcium containing foods or supplements. Please avoid the sun, as this may cause a photo sensitivity reaction. If you are going outside, please wear SPF 50 and cover yourself with long sleeves. For pain you may use ibuprofen 600 mg and Tylenol 650 mg every 6 hours [id number] for pain control for the next couple of days. Please wash daily with antibacterial soap or Hibiclens and water, then cover with a nonstick dressing. I advise you to use warm compresses 3-4 times a day on the area. Return immediately to emergency care if you notice any signs of infection such as redness, swelling, streaking, increasing pain, general malaise/fever, or if you are very worried and need to be rechecked again immediately Stand Alone Forms: Portal Information HPI General Date/Time Provider Initiated Documentation: 11/05/25 18:19. HPI Narrative: Dinesh is a 55-year-old female who presents to the emergency department today accompanied by her daughter for evaluation of cyst in the right groin area. She reports that the cyst first appeared 3 weeks ago, became more painful and inflamed 3 to 4 days ago. Today she sat down and it burst, releasing a large amount of purulent fluid. She reports it is very painful and inflamed, but denies systemic symptoms such as fever/chills, general malaise, chest pain, difficulty breathing, nausea/vomiting, abdominal pain, change in bowel or bladder function. She does have a history of boils in the past, so she has not needed antibiotics for them. PMH significant for hidradenitis suppurativa, TIA, ROLANDA, asthma/COPD, GERD/esophagitis, osteoarthritis, migraine headaches, anxiety. Denies history of immunocompromise, cardiovascular disease, liver or kidney dysfunction. She did take Tylenol and ibuprofen this morning, none since then. Related Data Home Medications ?Medication ?Instructions ?Recorded ?Confirmed topiramate 100 mg tablet (Topamax) 100 mg PO BID 12/26/20 11/05/25 montelukast 10 mg tablet 10 mg PO DAILY 05/18/21 11/05/25 umeclidinium 62.5 mcg/actuation 1 inh inhalation DAILY 05/18/21 11/05/25 blister powder for inhalation (Incruse Ellipta) dexlansoprazole 30 mg 30 mg PO DAILY #30 caps 03/14/23 11/05/25 capsule,biphase delayed release (Dexilant) fluticasone propion-salmeterol 2 puff inhalation DAILY 06/13/24 11/05/25 ibuprofen 600 mg tablet 600 mg PO TID PRN pain #90 tabs 06/13/24 11/05/25 albuterol sulfate 90 mcg/actuation 2 puff inhalation DISPENSE #0 grams 11/21/24 11/05/25 aerosol inhaler (Ventolin HFA) rimegepant 75 mg disintegrating 75 mg PO ONCE PRN 12/25/24 11/05/25 tablet (Nurtec ODT) ketoconazole 2 % topical cream 1 applic topical DAILY #120 grams 01/10/25 11/05/25 sucralfate 1 gram tablet (Carafate) 1 g PO QACHS PRN 01/10/25 11/05/25 Held on 11/05/25. Instructions: Pt Stopped/Never Started acetaminophen 500 mg tablet 1,000 mg PO ONCE PRN 04/29/25 11/05/25 diazepam 5 mg tablet (Valium) 5 mg PO BID PRN muscle spasm #10 08/09/25 11/05/25 Held on 11/05/25. tabs Instructions: Pt Stopped/Never Started lidocaine 5 % topical ointment 1 applic topical DAILY PRN pain 08/09/25 11/05/25 Held on 11/05/25. #30 grams Instructions: Pt Stopped/Never Started ondansetron 4 mg disintegrating 4 mg PO Q8H #20 tabs 08/21/25 11/05/25 tablet doxycycline hyclate 100 mg capsule 100 mg PO BID #11 caps 11/05/25 Previous Rx's ?Medication ?Instructions ?Recorded dexlansoprazole 30 mg 30 mg PO DAILY #30 caps 03/14/23 capsule,biphase delayed release (Dexilant) ibuprofen 600 mg tablet 600 mg PO TID PRN pain #90 tabs 06/13/24 albuterol sulfate 90 mcg/actuation 2 puff inhalation DISPENSE #0 grams 11/21/24 aerosol inhaler (Ventolin HFA) ketoconazole 2 % topical cream 1 applic topical DAILY #120 grams 01/10/25 diazepam 5 mg tablet (Valium) 5 mg PO BID PRN muscle spasm #10 08/09/25 Held on 11/05/25. tabs Instructions: Pt Stopped/Never Started lidocaine 5 % topical ointment 1 applic topical DAILY PRN pain 08/09/25 Held on 11/05/25. #30 grams Instructions: Pt Stopped/Never Started ondansetron 4 mg disintegrating 4 mg PO Q8H #20 tabs 08/21/25 tablet doxycycline hyclate 100 mg capsule 100 mg PO BID #11 caps 11/05/25 Allergies Allergy/AdvReac Type Severity Reaction Status Date / Time adhesive Allergy Intermediate gets red Verified 08/21/25 13:32 and welts up codeine Allergy Intermediate Itching Verified 08/21/25 13:32 oxycodone HCl (From Percocet) Allergy Intermediate Anaphylaxsi Verified 08/21/25 13:32 s morphine Allergy Itching Verified 08/21/25 13:32 cyclobenzaprine (From AdvReac Headache Verified 08/21/25 13:32 Flexeril) General Stated Complaint: Cellulitis CRISTI: 3 Exam Const General: cooperative, healthy appearing, no acute distress and well developed Nutritional Appearance: overweight Orientation: alert and oriented x3 Resp Effort & Inspection: normal respiratory effort and able to speak in complete sentences GI Inspection: normal to inspection Palpation: soft, no guarding and nontender Skin General skin exam: other (Painful draining nodules to right inguinal fold with surrounding erythema) Trauma: no lacerations or abrasions Full body images:  1. Painful draining nodules consistent with abscess with surrounding cellulitis Neuro General: patient alert, patient oriented x3, gait normal, tone normal, moves all extremities and no focal motor deficits Cognition: normal cognition Speech: speech normal Gait: normal gait Motor: muscle tone normal throughout and strength 5/5 throughout Sensory Exam: no sensory deficits noted Extrem General: full ROM Course Vital Signs Vital signs: Vital Signs Temperature 36.9 C 11/05/25 18:17 Pulse 126 H 11/05/25 18:17 Respiratory Rate 18 11/05/25 18:17 Blood Pressure 86/68 L 11/05/25 18:17 Pulse Oximetry 98 11/05/25 18:17 Temperature 36.9 C 11/05/25 18:17 Pulse 126 H 11/05/25 18:17 Respiratory Rate 18 11/05/25 18:17 Blood Pressure 86/68 L 11/05/25 18:17 Pulse Oximetry 98 11/05/25 18:17 Pain Level 10 11/05/25 18:17 Lab/Test Results Lab/Test Results: 11/05/25 18:22 Blood Blood Culture - Pending 11/05/25 18:22 Blood Blood Culture - Pending Medical Decision Making Dinesh is a 55-year-old female who presents to the emergency department today accompanied by her daughter for evaluation of cyst in the right groin area. She reports that the cyst first appeared 3 weeks ago, became more painful and inflamed 3 to 4 days ago. Today she sat down and it burst, releasing a large amount of purulent fluid. She reports it is very painful and inflamed, but denies systemic symptoms such as fever/chills, general malaise, chest pain, difficulty breathing, nausea/vomiting, abdominal pain, change in bowel or bladder function. She does have a history of boils in the past, so she has not needed antibiotics for them. PMH significant for hidradenitis suppurativa, TIA, ROLANDA, asthma/COPD, GERD/esophagitis, osteoarthritis, migraine headaches, anxiety. Denies history of immunocompromise, cardiovascular disease, liver or kidney dysfunction. She did take Tylenol and ibuprofen this morning, none since then. Physical exam remarkable for area of erythema to right inguinal fold with painful nodules draining purulent fluid. Significantly tender to palpation. Abdomen soft, nondistended, nontender to palpation. No surrounding crepitus. Full motion to leg, no distal numbness/tingling. Patient overall well-appearing, though uncomfortable with any fabric touching the abscess. Vital signs at triage initially notable for hypotension (BP taken over sweatshirt), but this was resolved by the time she came into the room w SBP 130s. Tachycardia noted, HR 126. DDx includes was not limited to: Abscess, lesions consistent with hidradenitis suppurativa, infected lymph node. Low suspicion for necrotizing soft tissue infection. Patient does meet SIRS criteria based on hypotension and tachycardia, though patient reports she is feeling generally well so low suspicion for sepsis. Mild hydration performed with 1 L LR; patient does not appear dehydrated and has been taking p.o. without difficulty. I independently interpreted the following tests: CBC notable for mild leukocytosis, white cell count 11.36. CMP and lactate unremarkable. CT abdomen/pelvis performed, findings consistent with cellulitis with subcutaneous stranding, no drainable abscess or regional lymphadenopathy evident. On the emergency department Dinesh received Toradol for discomfort. Will treat for MRSA with doxycycline. History and presentation consistent with uncomplicated cellulitis, patient is appropriate for discharge home with close PCP follow-up. Reviewed discharge instructions with patient, including use of doxycycline, pain control, warm compresses, and red flags indicating need for return to emergency care. She voiced agreement w/ plan of care. Imaging Data Radiologic Study: Radiologist's impression: Exam(s) CT ABDOMEN PELVIS W EXAM: CT ABDOMEN PELVIS W CLINICAL HISTORY: evaluate R groin abscess. TECHNIQUE: Imaging Protocol: Axial computed tomography images with coronal and sagittal reformatted images were created and reviewed CONTRAST MATERIAL: Intravenous: Omnipaque-350 100cc Oral: None COMPARISON: CT CT THORAX ABD/PEL CTA from 01/13/2023 FINDINGS: VISUALIZED LUNG BASES: No nodules nor pleural effusions evident. ABDOMEN: There is no ascites. LIVER: There are no focal hepatic lesions evident. No dilated intrahepatic ducts. GALLBLADDER/BILIARY: No obvious gallbladder pathology. CBD is not dilated. PANCREAS: No evidence of pancreatic mass nor dilatation of the pancreatic duct. SPLEEN: Spleen is not enlarged. No obvious intrasplenic lesions. Splenic and portal veins are patent. ADRENALS: There are no significant adrenal masses. KIDNEYS:There is a prominent parapelvic cyst in left kidney again noted which measures 5 by thigh with by 4.5 cm. There is a small cortical cyst in the opposite-right kidney measuring 0.9 cm. This benign cyst does not require further imaging workup. There are no solid renal masses. No calculi. No hydronephrosis. ABDOMINAL AORTA: Abdominal aorta is not enlarged. Incidentally noted is a patent retroaortic left renal vein. LYMPH NODES:There is no retroperitoneal nor paraaortic adenopathy. ABDOMINAL WALL: No evidence of significant anterior abdominal wall nor inguinal hernia. GI: There is no evidence of bowel obstruction, free air, nor abscess. PELVIS: GI: No evidence of appendicitis.No evidence of sigmoid diverticulitis. LYMPH NODES: There is no intrapelvic nor inguinal adenopathy. REPRODUCTIVE: Uterus and adnexal regions appear unremarkable and there is no free fluid in the pelvis. URINARY BLADDER: Collapsed. No obvious abnormalities. OTHER: There is skin thickening and subcutaneous streaking in the right inguinal region. No discernible abscess at this time. There is no gas in the soft tissues. No radiopaque foreign bodies in this region and no prominent lymphadenopathy in the ipsilateral groin. Similar findings are not seen on the opposite-left side. OSSEOUS: No fractures and no significant osseous lesions. Benign bone island is noted in left side of the symphysis pubis. There is posterior fusion hardware supported by bilateral intrapedicular screws in the lower lumbar spine and there is a bone graft donor site in the right iliac bone. IMPRESSION: 1. In the right groin there is cellulitis in the right inguinal crease and subcutaneous stranding. There is no drainable abscess at this time. There is no regional lymphadenopathy evident. 2. No other significant findings in the abdomen and pelvis. 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 (Acute) COPD (chronic obstructive pulmonary disease) with acute bronchitis (Acute) Headache (Acute) Contact dermatitis (Acute) Migraine (Chronic) GERD with esophagitis (Acute) Duodenitis (Acute) Chronic erosive gastritis (Acute) Esophagitis, Bledsoe grade A (Acute) Gross hematuria (Acute) Renal cyst (Acute) Papanicolaou smear for cervical cancer screening (Acute) Abdominal pain (Acute) Left sciatic notch pain (Acute) Left buttock pain (Acute) Osteoarthritis of left hip joint due to dysplasia (Acute) Atypical chest pain (Acute) Pain in knee region after total knee replacement (Acute) Effusion, left knee (Acute) Chronic low back pain (Acute) Lumbar degenerative disc disease (Acute) Chronic headache (Acute) Migraine headache without aura (Acute) Migraine headache with aura (Acute) Atypical migraine (Acute) Tobacco abuse (Acute) Thyroid nodule (Acute) Diplopia (Acute) Vertigo (Chronic) GERD (gastroesophageal reflux disease) (Chronic) Medical History Family history of breast cancer Hidradenitis suppurativa Dyspepsia Arthralgia Malaise and fatigue Prediabetes Tobacco use TIA (transient ischemic attack) 06/15-per pt. no residual deficits and has not been required to f/u with neuro Tear of medial meniscus of left knee Aspiration: 04/09/2019; 02/05/19 Depo-Medrol injection: 04/09/2019; 02/05/19 Left lateral epicondylitis s/p debridement 11/30/18 Tendinitis of both rotator cuffs (06/30/18) Asthma Obese Cigarette smoker Intertrigo Syncope Hyperthyroidism Migraine Depression Chronic pain Postmenopausal bleeding resolved Thyroid nodule Family history of colon cancer PTSD (post-traumatic stress disorder) Obstructive sleep apnea No CPAP at this time Surgical History History of total right knee replacement (TKR) 2013 [facility] History of esophagogastroduodenoscopy (EGD) (~02/09/21) History of back surgery lower back, 07/2020 History of total left knee replacement (TKR) (11/14/19) Dr. Brunson S/P left knee arthroscopy partial medial menisectomy and trochlear chondroplasty DOS: 05/17/19 Aspiration/Injection: 06/15/19 Status post left rotator cuff repair DOS: 11/30/2018 Dr. Brunson corticosteroid injection: 02/21/19 Replacement of total knee joint R Rotator Cuff Repair 2x on R, 1 x on L, pt report 2 on the left side EGD - [facility] (02/14/18) Colonoscopy - [facility] (02/14/18) Family History Father Rheumatoid arthritis Brother Rheumatoid arthritis Social History Smoking/Tobacco Use Status: Current-Occasional Tobacco Type: cigarettes Tobacco: How many years used: 25 Smoking risk assessment performed?: Yes Alcohol Intake: current Alcohol Intake frequency: holidays/special occasions only Drug use: Occasionally Substance use type: marijuana Housing: house Current gender identity: female Do you feel safe at home: Yes Do you feel safe in your relationship?: Yes
--- NOTE | 2025-11-05 18:45 | DI.CT_ITS ---
Exam(s) CT ABDOMEN PELVIS W EXAM: CT ABDOMEN PELVIS W CLINICAL HISTORY: evaluate R groin abscess. TECHNIQUE: Imaging Protocol: Axial computed tomography images with coronal and sagittal reformatted images were created and reviewed CONTRAST MATERIAL: Intravenous: Omnipaque-350 100cc Oral: None COMPARISON: CT CT THORAX ABD/PEL CTA from 01/13/2023 FINDINGS: VISUALIZED LUNG BASES: No nodules nor pleural effusions evident. ABDOMEN: There is no ascites. LIVER: There are no focal hepatic lesions evident. No dilated intrahepatic ducts. GALLBLADDER/BILIARY: No obvious gallbladder pathology. CBD is not dilated. PANCREAS: No evidence of pancreatic mass nor dilatation of the pancreatic duct. SPLEEN: Spleen is not enlarged. No obvious intrasplenic lesions. Splenic and portal veins are patent. ADRENALS: There are no significant adrenal masses. KIDNEYS:There is a prominent parapelvic cyst in left kidney again noted which measures 5 by thigh with by 4.5 cm. There is a small cortical cyst in the opposite-right kidney measuring 0.9 cm. This benign cyst does not require further imaging workup. There are no solid renal masses. No calculi. No hydronephrosis. ABDOMINAL AORTA: Abdominal aorta is not enlarged. Incidentally noted is a patent retroaortic left renal vein. LYMPH NODES:There is no retroperitoneal nor paraaortic adenopathy. ABDOMINAL WALL: No evidence of significant anterior abdominal wall nor inguinal hernia. GI: There is no evidence of bowel obstruction, free air, nor abscess. PELVIS: GI: No evidence of appendicitis.No evidence of sigmoid diverticulitis. LYMPH NODES: There is no intrapelvic nor inguinal adenopathy. REPRODUCTIVE: Uterus and adnexal regions appear unremarkable and there is no free fluid in the pelvis. URINARY BLADDER: Collapsed. No obvious abnormalities. OTHER: There is skin thickening and subcutaneous streaking in the right inguinal region. No discernible abscess at this time. There is no gas in the soft tissues. No radiopaque foreign bodies in this region and no prominent lymphadenopathy in the ipsilateral groin. Similar findings are not seen on the opposite-left side. OSSEOUS: No fractures and no significant osseous lesions. Benign bone island is noted in left side of the symphysis pubis. There is posterior fusion hardware supported by bilateral intrapedicular screws in the lower lumbar spine and there is a bone graft donor site in the right iliac bone. IMPRESSION: 1. In the right groin there is cellulitis in the right inguinal crease and subcutaneous stranding. There is no drainable abscess at this time. There is no regional lymphadenopathy evident. 2. No other significant findings in the abdomen and pelvis. Preliminary virtual Radiology report was reviewed RADIATION DOSE DELIVERED: 1,094.83mGy.cm Total DLP DATA REPOSITORY: All CT scans at this facility are submitted to the National Radiology Data Registry (NRDR) Dose Index Registry (DIR) with the [employer] (A[employer]). RADIATION OPTIMIZATION: All CT scans at this facility use at least one of these dose optimization techniques: automated exposure control; mA and/or kV adjustment per patient size (includes targeted exams where dose is matched to clinical indication); or iterative reconstruction.
[2025-11-05 18:56] LABS: Abs Immature Grans 0.03 10^3/uL (0.0-0.06); HCT 42.9 % (36.0-46.0); HGB 14.0 g/dL (11.2-15.7); Immature Grans % 0.3 %; MCH 29.2 pg (27.0-33.0); MCHC 32.6 % (32.0-36.0); MCV 90 fL (80-95); MPV 9.5 fL (8.0-11.0); Platelet Count 287 10^3/uL (130-400); RBC 4.79 10^6/uL (3.93-5.22); RDW 13.9 % (11.7-14.6); RDW-SD 45.5 fL; WBC 11.36 10^3/uL (4.4-10.8)
[2025-11-05 19:14] LABS: ALT 20 U/L (10-49); AST 28 U/L (<34); Albumin 4.4 g/dL (3.2-5.0); Alkaline Phosphatase 78 U/L (46-116); Anion Gap 9.2 mmol/L (3-11); BUN 12 mg/dL (9-23); Bilirubin, Total 0.8 mg/dL (0.2-1.2); CO2 23.8 mmol/L (20.0-31.0); Calcium 9.3 mg/dL (8.3-10.6); Chloride 105 mmol/L (98-107); Glucose 109 mg/dL (74-106); Potassium 3.5 mmol/L (3.5-5.1); Sodium 138 mmol/L (136-145); Total Protein 7.7 g/dL (5.7-8.2)
[2025-11-05] MEDS: Ketorolac 15 MG/ML VIAL IVP (19:33)
[2025-11-05] MEDS: Lactated Ringers 1,000 ML 1000 ML IV (19:34)
[2025-11-05] MEDS: Lidocaine/Epinephri/Tetracaine Topical Gel 3 ML TP (19:34)
[2025-11-05] MEDS: Omnipaque 350 MG/ML 100 ML BTL IJ (20:11)
[2025-11-05] MEDS: Normal Saline - Diluent 50 ML VIAL IJ (20:12)
[2025-11-05] MEDS: Normal Saline Flush 10 ML SYR IVP (20:12)
--- NOTE | 2025-11-05 20:51 | DI.VRAD_ITS ---
PROCEDURE INFORMATION: Exam: CT Abdomen And Pelvis With Contrast Exam date and time: 11/05/2025 8:08 PM Age: 55 years old Clinical indication: Abdominal pain and other: Abd pain, R groin abcess; Localized; Lower; Prior surgery; Surgery date: 6+ months; Surgery type: Back surgery; Evaluate R groin abscess TECHNIQUE: Imaging protocol: Computed tomography of the abdomen and pelvis with contrast. Radiation optimization: All CT scans at this facility use at least one of these dose optimization techniques: automated exposure control; mA and/or kV adjustment per patient size (includes targeted exams where dose is matched to clinical indication); or iterative reconstruction. Contrast material: OMNIPAQUE 350; Contrast volume: 100 ml; Contrast route: INTRAVENOUS (IV); COMPARISON: CT ABDOMEN PELVIS W 09/02/2022 9:22 PM FINDINGS: Lungs: Lung bases are clear. Liver: The liver has a normal appearance. Gallbladder and biliary ducts: The gallbladder is unremarkable. No biliary ductal dilatation. Pancreas: The pancreas demonstrates normal size. No pancreatic ductal dilatation. Spleen: The spleen demonstrates normal size. Adrenal glands: The adrenal glands have a normal appearance. Kidneys and ureters: The kidneys are normal in size. Low-density cortical cystic lesions are present bilaterally within the kidneys. No hydronephrosis. No hydroureter or ureterolithiasis. Stomach and bowel: The bowel demonstrates overall normal caliber and wall thickness. Appendix: The appendix is thin walled. Intraperitoneal space: Unremarkable. No free air. No significant fluid collection. Vasculature: The IVC and aorta have a normal appearance. Lymph nodes: No enlarged lymph nodes. Urinary bladder: The bladder is thin walled and fluid filled. Reproductive: The uterus has a normal appearance. Bones/joints: Bones have a normal appearance. No acute fracture or suspicious bone lesion. Soft tissues: Focal skin thickening and underlying fat stranding is present within the right inguinal crease. There is no discrete fluid collection to suggest subcutaneous abscess. IMPRESSION: 1. Probable cellulitis within the right inguinal crease. No findings to suggest subcutaneous abscess. 2. No other acute intra-abdominal findings. 3. Normal appendix. Dictated and Authenticated by: Barbara Rosado MD. Orderin Alexei Clarke MD
[2025-11-05] MEDS: Doxycycline Hyclate 100 MG CAP PO (21:28)
== END 2025-11-05 21:34 | disposition home or self-care (01) ==
PROVIDERS: Emergency Provider Nurse Practitioner Family; PCP Nurse Practitioner Family
DX: L02.415 Cutaneous abscess of right lower limb (principal); L03.115 Cellulitis of right lower limb; L73.2 Hidradenitis suppurativa
CPT/HCPCS: 36415; 80053; 87040; 96361; 96374; 99284; 74177; 83605; 85025; J1885; J3490